=== PATIENT | female | born 1980 | race Caucasian/White ===

== ENCOUNTER → 2018-03-19 12:58 | Outpatient (CLI) | payer BC, SELFPAY ==
[2018-03-19 14:34] LABS: Alanine Aminotransferase 23 U/L (12-78); Albumin/Globulin Ratio 1.3 (1.1-1.8); Alkaline Phosphatase 67 U/L (46-116); Aspartate Amino Transferase 21 U/L (15-37); Bilirubin,Total 0.5 mg/dL (0.2-1.0); Blood Urea Nitrogen 7 mg/dL (7-18); Calcium 10.1 mg/dL (8.5-10.1); Chloride 102 mmol/L (98-107); Chol/HDL Ratio 4.9 (1-3.5); Cholesterol 178 mg/dL (140-200); Creatinine,Serum 0.84 mg/dL (0.55-1.02); Estimated Glomerular Filt Rate 77 ml/min (>60); GFR (African American) 93 ML/MIN (>60); Globulin 3.1 gm/dl (1.3-3.2); Glucose 86 mg/dL (74-106); HDL Cholesterol 36 mg/dL (29-89); LDL Cholesterol 114 mg/dL (0-130); Potassium 4.4 mmoL/L (3.5-5.1); Sodium 139 mmol/L (136-145); Total Protein,Serum 7.1 gm/dL (6.4-8.2); Triglycerides 142 mg/dL (30-200); VLDL Cholesterol 28 mg/dL (0-40)
[2018-03-19 14:35] LABS: Anion Gap 14.4 mEq/L (5-15); Carbon Dioxide 27 mmol/L (21.0-32.0)
== END ==
PROVIDERS: Visit Provider Internal Medicine
DX: M05.9 Rheumatoid arthritis with rheumatoid factor, unspecified (principal)
CPT/HCPCS: 36415; 80053; 80061

== ENCOUNTER → 2018-04-01 12:07 | Outpatient (CLI) | payer BC, SELFPAY ==
[2018-04-01 12:55] LABS: Basophils % 0.3 % (0.1-2.0); Eosinophils # 0.2 K/mm3 (0.0-0.4); Eosinophils % 2.9 % (0.1-12.0); Hemoglobin 12.6 g/dL (12.2-16.2); Lymphocytes # 1.6 K/mm3 (0.7-4.5); Lymphocytes % 22.7 K/mm3 (10-50); Mean Corpuscular HGB Conc 31.5 g/dL (31.8-35.4); Mean Corpuscular Hemoglobin 28.9 pg (27.0-31.2); Mean Corpuscular Volume 91.8 fl (81-99); Mean Platelet Volume 10.5 fl (7.4-10.4); Monocytes # 0.2 K/mm3 (0.1-1.0); Monocytes % 3.5 % (1.7-9.3); Neutrophils % 70.6 % (37.0-80.0); Platelet Count 245 K/mm3 (142-424); Red Blood Count 4.36 M/mm3 (4.20-5.40); Red Cell Distribution Width 13.2 % (11.5-17.5)
== END ==
PROVIDERS: Visit Provider Internal Medicine
DX: M05.9 Rheumatoid arthritis with rheumatoid factor, unspecified (principal); M79.7 Fibromyalgia; Z79.899 Other long term (current) drug therapy
CPT/HCPCS: 36415; 85025

== ENCOUNTER → 2018-05-06 11:01 | Outpatient (CLI) | payer BC, SELFPAY ==
[2018-05-06 11:29] LABS: Basophils % 0.6 % (0.1-2.0); Eosinophils # 0.2 K/mm3 (0.0-0.4); Hematocrit 39.6 % (37.0-47.0); Hemoglobin 12.3 g/dL (12.2-16.2); Lymphocytes # 2.2 K/mm3 (0.7-4.5); Lymphocytes % 39.4 K/mm3 (10-50); Mean Corpuscular HGB Conc 31.1 g/dL (31.8-35.4); Mean Corpuscular Hemoglobin 28.6 pg (27.0-31.2); Mean Corpuscular Volume 91.9 fl (81-99); Mean Platelet Volume 8.9 fl (7.4-10.4); Monocytes # 0.2 K/mm3 (0.1-1.0); Monocytes % 3.2 % (1.7-9.3); Neutrophils % 52.7 % (37.0-80.0); Platelet Count 233 K/mm3 (142-424); Red Blood Count 4.31 M/mm3 (4.20-5.40); Red Cell Distribution Width 13.6 % (11.5-17.5); White Blood Count 5.6 K/mm3 (4.8-10.8)
[2018-05-06 12:50] LABS: Alanine Aminotransferase 37 U/L (12-78); Albumin Level 3.9 gm/dL (3.4-5.0); Albumin/Globulin Ratio 1.5 (1.1-1.8); Alkaline Phosphatase 57 U/L (46-116); Anion Gap 13.1 mEq/L (5-15); Aspartate Amino Transferase 40 U/L (15-37); Bilirubin,Total 0.5 mg/dL (0.2-1.0); Blood Urea Nitrogen 7 mg/dL (7-18); Calcium 9.1 mg/dL (8.5-10.1); Carbon Dioxide 28 mmol/L (21.0-32.0); Chloride 105 mmol/L (98-107); Chol/HDL Ratio 3.8 (1-3.5); Cholesterol 191 mg/dL (140-200); Creatinine,Serum 0.67 mg/dL (0.55-1.02); Estimated Glomerular Filt Rate 100 ml/min (>60); GFR (African American) 121 ML/MIN (>60); Globulin 2.6 gm/dl (1.3-3.2); Glucose 94 mg/dL (74-106); HDL Cholesterol 50 mg/dL (29-89); LDL Cholesterol 109 mg/dL (0-130); Potassium 4.1 mmoL/L (3.5-5.1); Sodium 142 mmol/L (136-145); Total Protein,Serum 6.5 gm/dL (6.4-8.2); Triglycerides 161 mg/dL (30-200); VLDL Cholesterol 32 mg/dL (0-40)
== END ==
PROVIDERS: Visit Provider Internal Medicine
DX: M05.9 Rheumatoid arthritis with rheumatoid factor, unspecified (principal); R53.83 Other fatigue; Z79.899 Other long term (current) drug therapy
CPT/HCPCS: 36415; 80053; 80061; 85025

== ENCOUNTER → 2018-06-12 11:40 | Outpatient (CLI) | payer BC, SELFPAY ==
[2018-06-12 12:01] LABS: Basophils % 0.5 % (0.1-2.0); Eosinophils # 0.3 K/mm3 (0.0-0.4); Hematocrit 36.2 % (37.0-47.0); Hemoglobin 11.8 g/dL (12.2-16.2); Lymphocytes # 2.4 K/mm3 (0.7-4.5); Lymphocytes % 28.1 K/mm3 (10-50); Mean Corpuscular HGB Conc 32.7 g/dL (31.8-35.4); Mean Corpuscular Hemoglobin 30.1 pg (27.0-31.2); Mean Corpuscular Volume 92.1 fl (81-99); Mean Platelet Volume 8.6 fl (7.4-10.4); Monocytes # 0.4 K/mm3 (0.1-1.0); Monocytes % 4.2 % (1.7-9.3); Neutrophils # 5.5 K/mm3 (1.8-7.8); Neutrophils % 64.2 % (37.0-80.0); Platelet Count 272 K/mm3 (142-424); Red Blood Count 3.92 M/mm3 (4.20-5.40); Red Cell Distribution Width 14.3 % (11.5-17.5); White Blood Count 8.6 K/mm3 (4.8-10.8)
[2018-06-12 12:55] LABS: Alanine Aminotransferase 23 U/L (12-78); Albumin Level 3.8 gm/dL (3.4-5.0); Albumin/Globulin Ratio 1.4 (1.1-1.8); Alkaline Phosphatase 58 U/L (46-116); Anion Gap 10.9 mEq/L (5-15); Aspartate Amino Transferase 14 U/L (15-37); Bilirubin,Total 0.3 mg/dL (0.2-1.0); Blood Urea Nitrogen 9 mg/dL (7-18); Calcium 8.8 mg/dL (8.5-10.1); Carbon Dioxide 27 mmol/L (21.0-32.0); Chloride 104 mmol/L (98-107); Cholesterol 215 mg/dL (140-200); Creatinine,Serum 0.75 mg/dL (0.55-1.02); Estimated Glomerular Filt Rate 88 ml/min (>60); GFR (African American) 106 ML/MIN (>60); Globulin 2.8 gm/dl (1.3-3.2); Glucose 87 mg/dL (74-106); HDL Cholesterol 36 mg/dL (29-89); LDL Cholesterol 141 mg/dL (0-130); Potassium 3.9 mmoL/L (3.5-5.1); Sodium 138 mmol/L (136-145); Total Protein,Serum 6.6 gm/dL (6.4-8.2); Triglycerides 189 mg/dL (30-200); VLDL Cholesterol 38 mg/dL (0-40)
== END ==
PROVIDERS: Visit Provider Internal Medicine
DX: M05.9 Rheumatoid arthritis with rheumatoid factor, unspecified (principal); R53.83 Other fatigue; Z79.899 Other long term (current) drug therapy
CPT/HCPCS: 36415; 80053; 80061; 85025

== ENCOUNTER → 2018-08-14 14:35 | Outpatient (CLI) | payer BC, SELFPAY ==
[2018-08-14 15:10] LABS: Basophils % 0.3 % (0.1-2.0); Eosinophils # 0.3 K/mm3 (0.0-0.4); Eosinophils % 3.3 % (0.1-12.0); Hematocrit 36.9 % (37.0-47.0); Hemoglobin 11.9 g/dL (12.2-16.2); Lymphocytes % 22.7 K/mm3 (10-50); Mean Corpuscular HGB Conc 32.2 g/dL (31.8-35.4); Mean Corpuscular Hemoglobin 30.7 pg (27.0-31.2); Mean Corpuscular Volume 95.2 fl (81-99); Mean Platelet Volume 8.1 fl (7.4-10.4); Monocytes # 0.5 K/mm3 (0.1-1.0); Neutrophils # 6.2 K/mm3 (1.8-7.8); Neutrophils % 68.7 % (37.0-80.0); Platelet Count 332 K/mm3 (142-424); Red Blood Count 3.88 M/mm3 (4.20-5.40); Red Cell Distribution Width 13.2 % (11.5-17.5)
[2018-08-14 16:56] LABS: Alanine Aminotransferase 24 U/L (12-78); Albumin Level 3.6 gm/dL (3.4-5.0); Albumin/Globulin Ratio 1.1 (1.1-1.8); Alkaline Phosphatase 68 U/L (46-116); Anion Gap 8.3 mEq/L (5-15); Aspartate Amino Transferase 16 U/L (15-37); Bilirubin,Total 0.2 mg/dL (0.2-1.0); Blood Urea Nitrogen 7 mg/dL (7-18); Calcium 9.1 mg/dL (8.5-10.1); Carbon Dioxide 30 mmol/L (21.0-32.0); Chloride 104 mmol/L (98-107); Creatinine,Serum 0.65 mg/dL (0.55-1.02); Estimated Glomerular Filt Rate 104 ml/min (>60); GFR (African American) 126 ML/MIN (>60); Globulin 3.2 gm/dl (1.3-3.2); Glucose 82 mg/dL (74-106); Potassium 4.3 mmoL/L (3.5-5.1); Sodium 138 mmol/L (136-145); Total Protein,Serum 6.8 gm/dL (6.4-8.2)
== END ==
PROVIDERS: PCP Family Medicine; Visit Provider Otolaryngology
DX: H70.11 Chronic mastoiditis, right ear (principal)
CPT/HCPCS: 36415; 80053; 85025

== ENCOUNTER → 2018-11-28 10:50 | Outpatient (CLI) | payer BC, SELFPAY ==
--- NOTE | 2018-11-28 10:56 | CT_ITS ---
CT abdomen pelvis w con CLINICAL INDICATION: Nausea, vomiting, right-sided abdominal pain ITS.REASON: N/V , VERTIGO, ABD PAIN ORDERING PHYSICIAN: Marlen Vital PATIENT AGE: 37 years COMPARISON: None TECHNIQUE: Axial images obtained with sagittal and coronal reformats. All CT scans at the facility use one or more dose reduction, viz: automated exposure control, ma/kV adjustment per patient size (including targeted exams where dose is matched to indication, i.e. head), or iterative reconstruction technique. PROCEDURE: Oral Contrast: None IV Contrast: 75 mL of Isovue-370. FINDINGS: There are mild atelectatic changes in the lung bases. There is minimal thickening of the pericardium. Probable focal fatty infiltration noted along the falciform ligament region of the left hepatic lobe. The liver is otherwise unremarkable. The spleen, adrenal glands, and pancreas have an unremarkable appearance. Prior cholecystectomy. No renal mass or renal calculi. No ureteral calculi. No hydronephrosis. No intestinal structure in or free air. There has been a prior appendectomy and hysterectomy. No pelvic mass abnormal fluid collection or focal inflammatory change apparent. There is a right-sided presacral stimulator device present with the power pack in the right buttock region. No acute bony anomalies. IMPRESSION: No acute abdominal or pelvic findings.
== END ==
PROVIDERS: PCP Family Medicine; Visit Provider Nurse Practitioner Family
DX: R10.9 Unspecified abdominal pain (principal); R42 Dizziness and giddiness; R11.2 Nausea with vomiting, unspecified
CPT/HCPCS: 74177; Q9967

== ENCOUNTER → 2019-01-26 16:34 | Outpatient (CLI) | payer BC, SELFPAY ==
[2019-01-26 16:52] LABS: Basophils % 0.3 % (0.1-2.0); Eosinophils # 0.2 K/mm3 (0.0-0.4); Eosinophils % 2.5 % (0.1-12.0); Hematocrit 36.6 % (37.0-47.0); Lymphocytes # 2.7 K/mm3 (0.7-4.5); Lymphocytes % 31.3 % (10-50); Mean Corpuscular HGB Conc 32.9 g/dL (31.8-35.4); Mean Corpuscular Hemoglobin 30.2 pg (27.0-31.2); Mean Corpuscular Volume 91.9 fl (81-99); Mean Platelet Volume 8.6 fl (7.4-10.4); Monocytes # 0.4 K/mm3 (0.1-1.0); Monocytes % 4.2 % (1.7-9.3); Neutrophils # 5.3 K/mm3 (1.8-7.8); Neutrophils % 61.7 % (37.0-80.0); Platelet Count 312 K/mm3 (142-424); Red Blood Count 3.99 M/mm3 (4.20-5.40); Red Cell Distribution Width 13.7 % (11.5-17.5); White Blood Count 8.7 K/mm3 (4.8-10.8)
[2019-01-26 18:06] LABS: Anion Gap 13.7 mEq/L (5-15); Blood Urea Nitrogen 7 mg/dL (7-18); Calcium 9.3 mg/dL (8.5-10.1); Carbon Dioxide 30 mmol/L (21.0-32.0); Chloride 105 mmol/L (98-107); Creatinine,Serum 0.72 mg/dL (0.55-1.02); Estimated Glomerular Filt Rate 92 ml/min (>60); GFR (African American) 111 ML/MIN (>60); Glucose 74 mg/dL (74-106); Potassium 3.7 mmoL/L (3.5-5.1); Sodium 145 mmol/L (136-145)
== END ==
PROVIDERS: Visit Provider Otolaryngology
DX: Z01.818 Encounter for other preprocedural examination (principal); H65.493 Other chronic nonsuppurative otitis media, bilateral; H92.02 Otalgia, left ear; H70.13 Chronic mastoiditis, bilateral
CPT/HCPCS: 36415; 80048; 85025; 93005

== ENCOUNTER → 2019-03-13 08:50 | Outpatient (CLI) | payer BC, SELFPAY ==
--- NOTE | 2019-03-13 08:53 | XR_ITS ---
XR ankle wt bearing RT min 3V HISTORY: Pain and swelling ITS.REASON: 3 views WB ORDERING PHYSICIAN: Maria De Jesus Richter MD PATIENT AGE: 38 years Comparison: 05/03/2015 FINDINGS: Prior ORIF of the fibula. A longitudinal screw is present within the distal aspect of the fibula. The screw does not appear to be distracting out. There is a small zone of lucency noted around the proximal aspect of the screw at the threaded area. This did appear to be present on the older exam of 05/03/2015 consistent with post surgical changes. There is some mild spurring along the anterior aspect of the distal tibia. IMPRESSION: Prior ORIF of the fibula with mild degenerative changes of the anterior ankle joint
== END ==
PROVIDERS: PCP Family Medicine; Visit Provider Orthopaedic Surgery
DX: M25.571 Pain in right ankle and joints of right foot (principal)
CPT/HCPCS: 73610

== ENCOUNTER 2019-04-29 11:00 | Outpatient (RCR) | payer BC, SELFPAY ==
--- NOTE | 2019-04-16 11:03 | HMH.PTOPEV ---
PT Outpatient Evaluation Rehab PT Outpatient Evaluation Start: 04/16/19 10:22 Freq: Status: Active Protocol: Document 04/16/19 10:23 LEVI (Rec: 04/16/19 11:02 LEVI [id number]) Electronically Signed By Wilian Foss, PT 04/16/19 10:23 Outpatient Therapy Subjective History Subjective History Pt reports h/o chronic R ankle pain beginning ~8 months ago. pt reports fx to R distal fib , w/ORIF sx. in 2014, intermittent episodes of R ankle pain since, however, s/s became constant ~8 months ago . Pt reports PMH of RA, 'which might be causing it to get worse'. Chief Complaint Pain,Swelling Symptom Type Ache,Sharp,Dull Symptoms Relieved By Rest/Positioning,Ice Symptoms Aggravated By Standing,Walking Prior Functional Limitations Standing,Walking Current Functional Limitations Standing,Walking Symptom Description Constant and Continuous Level of pain today (0-10) 4 Pain scale - at its best (0-10) 3 Pain scale - at its worst (0-10) 9 Ankle/Foot Eval Gait Observation General Gait Pattern Observation Antalgic Gait Assistive Device Ambulation Assistive Device None Palpation Tenderness right Ankle/Foot Palpation Findings Tenderness Ankle/Foot Palpation Overall Comment 3/4 peroneals ATF TTP positive ROM Ankle/Foot Dorsiflexion w/Knee Extended 0-10 Active Range Motion (degrees) Ankle/Foot Plantar Flexion Active Range 0-50 of Motion (degrees) Ankle/Foot Eversion Active Range of 0-15 Motion (degrees) Ankle/Foot Inversion Active Range of 0-50 Motion (degrees) Ankle/Foot ROM Limitations Pain left Ankle/Foot Dorsiflexion w/Knee Extended 0-15 Active Range Motion (degrees) Ankle/Foot Plantar Flexion Active Range 0-65 of Motion (degrees) Ankle/Foot Eversion Active Range of 0-15 Motion (degrees) Ankle/Foot Inversion Active Range of 0-60 Motion (degrees) MMT right Ankle Dorsiflexion Strength Grade 4 Good Ankle Plantarflexion Strength Grade 4 Good Foot Eversion Strength Grade 4- Good- Foot Inversion Strength Grade 3+ Fair+ left Ankle Dorsiflexion Strength Grade 5 Normal Ankle Plantarflexion Strength Grade 5 Normal Foot Eversion Strength Grade 5 Normal Foot Inversion Strength Grade 4 Good Special Tests Talar Tilt Test Negative Left,Positive Right Outpatient Therapy Assessment Impairments Problems/Impairmments Palpation Tenderness,Impaired
== END 2019-04-29 11:05 | disposition home or self-care (01) ==
LOC: PT 11:00
PROVIDERS: Visit Provider Orthopaedic Surgery
DX: M76.71 Peroneal tendinitis, right leg (principal)
CPT/HCPCS: 97010; 97014; 97033; 97035; 97110; 97163; G0283

== ENCOUNTER 2019-06-18 10:00 | Outpatient (RCR) | payer BC, SELFPAY ==
--- NOTE | 2019-06-16 11:44 | HMH.PTOPEV ---
PT Outpatient Evaluation Rehab PT Outpatient Evaluation Start: 06/16/19 11:23 Freq: Status: Active Protocol: Document 06/16/19 11:23 [id number] (Rec: 06/16/19 11:44 BRANDON [id number]) Electronically Signed By Ap Rodriguez, PT 06/16/19 11:23 Outpatient Therapy Subjective History Subjective History Patient is a 38 year old female presenting to outpatient PT with reports of R ankle pain S/P distal fibular hardware excision performed 05/20/19. Initial injury occured approximately 4 years ago after inversion ankle sprain requiring ORIF. Pt reports that she has been having significant R ankle pain for approximately 1 year prior to surgery. Comorbidities include RA, hx of R knee lateral release and hysterectomy. Chief Complaint Pain,Stiff,Swelling, Paresthesia,Weakness Symptom Type Ache,Sharp,Shooting Symptoms Relieved By Rest/Positioning,Ice,OTC Meds, Prescription Meds Symptoms Aggravated By Standing,Physical Activity, Walking Prior Functional Limitations None Current Functional Limitations Lifting,Housework,Standing, Squatting,Recreation Activity, Walking,Stairs,Balance Symptom Description Constant but Variable Level of pain today (0-10) 6 Pain scale - at its best (0-10) 2 Pain scale - at its worst (0-10) 6 Ankle/Foot Eval Gait Observation General Gait Pattern Observation Antalgic Gait,Decrease Weight Bear (R) Assistive Device Ambulation Assistive Device None Palpation Tenderness right Ankle/Foot Palpation Findings Tenderness Ankle/Foot Palpation Overall Comment surgical incision ROM Ankle/Foot Dorsiflexion w/Knee Extended 1 Active Range Motion (degrees) Ankle/Foot Dorsiflexion w/Knee Extended 4 Passive Range (degrees) Ankle/Foot Plantar Flexion Active Range WNL of Motion (degrees) Ankle/Foot Eversion Active Range of 8 Motion (degrees) Ankle/Foot Eversion Passive Range of 12 Motion (degrees) Ankle/Foot Inversion Active Range of WNL Motion (degrees) Ankle/Foot ROM Limitations Soft Tissue Tightness,Bony Restriction Great Toe ROM Reason Not Measured Within Functional Limits Accessory
== END 2019-06-18 10:05 | disposition home or self-care (01) ==
LOC: PT 10:00
PROVIDERS: PCP Family Medicine; Visit Provider Orthopaedic Surgery
DX: T84.84XA Pain due to internal orthopedic prosthetic devices, implants and grafts, initial encounter (principal); M76.71 Peroneal tendinitis, right leg
CPT/HCPCS: 97163

== ENCOUNTER → 2019-06-30 11:26 | Outpatient (CLI) | payer BC, SELFPAY ==
--- NOTE | 2019-06-30 11:33 | XR_ITS ---
PROCEDURE: XR CHEST 2V CLINICAL HISTORY: COUGH COMPARISON: CXR2V XR chest 2V from 08/02/2018 from 03/13/2019 Chest from 06/06/2019 FINDINGS: The cardiomediastinal silhouette and pulmonary vascularity are within normal limits. There remains patchy density in the right lower lobe suggestive of infiltrate in the right middle lobe. No acute bony abnormalities. IMPRESSION: Patchy infiltrate in the right middle lobe Dictated by: Allen Rosa MD 06/30/2019 12:05 Signed by: <Electronically signed by Allen Rosa MD in [place]> 06/30/2019 12:05
== END ==
PROVIDERS: PCP Family Medicine; Visit Provider Family Medicine
DX: R05 Cough (principal)
CPT/HCPCS: 71046

== ENCOUNTER → 2019-07-16 10:00 | Outpatient (CLI) | payer BC, SELFPAY ==
--- NOTE | 2019-07-16 10:03 | XR_ITS ---
PROCEDURE: XR CHEST 2V CLINICAL HISTORY: PNEUMONIA Bronchitis, pneumonia, smoker COMPARISON: CXR2V XR chest 2V from 08/02/2018 Chest from 06/06/2019 XR CHEST 2V from 06/30/2019 FINDINGS: The cardiomediastinal silhouette and pulmonary vascularity are within normal limits. Patchy infiltrate once again noted in the right middle lobe. The remaining lungs are clear. No acute bony abnormalities. IMPRESSION: No change right middle lobe infiltrate. Dictated by: Allen Rosa MD 07/16/2019 17:53 Electronically signed by Allen Rosa MD in [place] 07/16/2019 17:53
== END ==
PROVIDERS: PCP Nurse Practitioner Family; Visit Provider Nurse Practitioner Family
DX: J18.1 Lobar pneumonia, unspecified organism (principal)
CPT/HCPCS: 71046

== ENCOUNTER → 2019-07-30 14:00 | Outpatient (CLI) | payer BC, SELFPAY ==
--- NOTE | 2019-07-30 14:04 | CT_ITS ---
PROCEDURE: CT CHEST WO CON CLINICAL INDICATION: SOB, INFILTRAE SEEN ON CXR COMPARISON: XR CHEST 2V from 07/16/2019 TECHNIQUE: Axial images obtained with sagittal and coronal reformats. All CT scans at the facility use one or more dose reduction, viz: automated exposure control, ma/kV adjustment per patient size (including targeted exams where dose is matched to indication, i.e. head), or iterative reconstruction technique. FINDINGS: HEART: Unremarkable. Normal heart size. No significant pericardial effusion. MEDIASTINAL AND HILAR STRUCTURES: No mediastinal or hilar mass evident. No dominant adenopathy. PULMONARY ARTERIES: No pulmonary embolus evident. AORTA: No acute finding. No thoracic aortic aneurysm or dissection evident LUNGS:The upper lung soriano are clear. There is subtle faint areas of ground-glass opacities primarily in the right middle lobe and minimally within the lingula likely representing sequela from recent pneumonic infiltrates. PLEURAL SPACES: No significant effusion. No evidence of pneumothorax. BONY STRUCTURES: No acute bony abnormalities apparent. LYMPH NODES: No enlarged lymph nodes evident. UPPER ABDOMEN: Unremarkable. ADDITIONAL FINDINGS: No other significant abnormalities. IMPRESSION: Minimal areas of ground-glass opacity as discussed above likely reflecting minimal residual pneumonia and/or mild postinflammatory scarring, no other significant abnormality noted Dictated by: Dr. Arjun Zuniga MD 07/31/2019 09:[address] Arjun Zuniga MD in [place] 07/31/2019 09:32
== END ==
PROVIDERS: PCP Nurse Practitioner Family; Visit Provider Nurse Practitioner
DX: R06.02 Shortness of breath (principal); R91.8 Other nonspecific abnormal finding of lung field
CPT/HCPCS: 71250

== ENCOUNTER → 2019-08-14 11:26 | Outpatient (CLI) | payer BC, SELFPAY ==
[2019-08-14 11:40] VITALS: PULSE 75
== END ==
PROVIDERS: PCP Family Medicine; Visit Provider Nurse Practitioner Family
DX: R06.02 Shortness of breath (principal)
CPT/HCPCS: 94060; 94640

== ENCOUNTER → 2019-08-17 14:58 | Outpatient (CLI) | payer BC, SELFPAY ==
--- NOTE | 2019-08-17 15:01 | XR_ITS ---
PROCEDURE: XR CHEST 2V CLINICAL HISTORY: PNEUMONIA RT MID LOBE COMPARISON: Chest from 06/06/2019 XR CHEST 2V from 06/30/2019 XR CHEST 2V from 07/16/2019 CT CHEST WO CON from 07/30/2019 FINDINGS: The cardiomediastinal silhouette and pulmonary vascularity are within normal limits. There remains some patchy density in the right middle lobe consistent with some residual pneumonia. There may be some patchy infiltrate in the left perihilar region. The remaining lungs are clear. No effusions. No acute bony abnormalities. IMPRESSION: Persistent right middle lobe and left perihilar infiltrate Dictated by: Allen Rosa MD 08/17/2019 16:57 Electronically signed by Allen Rosa MD in [facility] 08/17/2019 16:57
== END ==
PROVIDERS: PCP Nurse Practitioner Family; Visit Provider Nurse Practitioner Family
DX: J18.1 Lobar pneumonia, unspecified organism (principal)
CPT/HCPCS: 71046

== ENCOUNTER → 2020-04-01 14:09 | Outpatient (CLI) | payer BC, SELFPAY ==
--- NOTE | 2020-04-01 14:16 | US_ITS ---
PROCEDURE: US THYROID CLINICAL INDICATION: THYROIDMEGALY Follow-up thyroid nodule COMPARISON: THY US THYROID from 08/04/2015 FINDINGS: Right lobe: 4 x 1.4 x 1 cm with heterogeneous echogenicity. Questionable 5 mm mixed nodule mid pole on the right Left lobe: 3.5 x 1.2 x 1.2 cm. 14 x 6 mm area of heterogeneous echogenicity in the lower pole versus a nodule not significantly changed. There is an isoechoic follow are mm nodule in the lower pole unchanged. Isthmus: Unremarkable Additional findings: IMPRESSION: Heterogeneous echogenicity with questionable bilateral nodules. Six-month follow-up suggested Dictated by: Allen Rosa MD 04/02/2020 10:55 Electronically signed by Allen Rosa MD in [place] 04/02/2020 10:55
== END ==
PROVIDERS: PCP Nurse Practitioner Family; Visit Provider Nurse Practitioner Family
DX: E01.0 Iodine-deficiency related diffuse (endemic) goiter (principal)
CPT/HCPCS: 76536

== ENCOUNTER → 2020-04-19 14:40 | Outpatient (CLI) | payer BC, SELFPAY ==
--- NOTE | 2020-04-19 14:41 | CT_ITS ---
PROCEDURE: CT CERVICAL SPINE WO CON CLINICAL INDICATION: fatty area posterior neck Palpable abnormality posterior neck with neck pain COMPARISON: No exams were available for comparison TECHNIQUE: Axial images obtained with sagittal and coronal reformats. All CT scans at the facility use one or more dose reduction, viz: automated exposure control, ma/kV adjustment per patient size (including targeted exams where dose is matched to indication, i.e. head), or iterative reconstruction technique. Axial spiral CT scanning performed of the cervical spine beginning at the base of the skull and continuing to the upper T-spine. 3-D multiplanar reconstruction with 3-D manipulation of volumetric data set in image rendering was completed by the radiologist and/or technologist with the supervision of the radiologist on independent workstation. FINDINGS: A BB is placed at the area of palpable concern. There is normal alignment. No fracture or dislocation is evident. There is mild degenerative disc disease at C3-C4 and C4-C5 and C6-C7 with small posterior osteophytes at C6-C7.. No fracture or dislocation. No lytic or blastic change. There are few scattered small nodes in the neck. There is some nonspecific patchy ground-glass density in the upper lobes A BB is placed along the posterior neck. Deep to the BB is adipose tissue. There is only minimal stranding of the deep adipose fat. No abnormal fluid collection or soft tissue mass. IMPRESSION: 1. Degenerative changes cervical spine. 2. No suspicious soft tissue mass. There is some minimal stranding of the fat deep to the placed BB which could be due to some mild inflammatory changes. At the area of the placed BB there is mild prominence of adipose tissue. No abscess Dictated by: Allen Rosa MD 04/20/2020 11:27 Electronically signed by Allen Rosa MD in [place] 04/20/2020 11:27
== END ==
PROVIDERS: PCP Nurse Practitioner Family; Visit Provider Otolaryngology
DX: D17.0 Benign lipomatous neoplasm of skin and subcutaneous tissue of head, face and neck (principal)
CPT/HCPCS: 72125

== ENCOUNTER → 2020-05-26 10:10 | Outpatient (CLI) | payer BC, SELFPAY ==
[2020-05-26 11:30] LABS: Coronavirus 19 IgG Antibody Negative (Negative); Coronavirus 19 IgM Antibody Negative (Negative)
== END ==
PROVIDERS: Visit Provider Internal Medicine Gastroenterology
DX: Z01.818 Encounter for other preprocedural examination (principal)
CPT/HCPCS: 36415; 86328

== ENCOUNTER 2020-05-27 07:54 | Day surgery (SDC) | payer BC, SELFPAY ==
[2020-05-20 14:52] VITALS: BMI 30.4
[2020-05-27] VITALS (9 sets, daily range): BP systolic 87–128; BP diastolic 56–81; PULSE 60–75; RESP 16–17; TEMP 36.2–36.7; O2SAT 96–100
--- NOTE | 2020-05-27 09:21 | HMH.ANESCL ---
[facility] Anesthesia Checklist - Patient Identification Patient Identification: Arm Band - Structural Data Admitted From: Home Planned Operative Procedure/s: egd/colonoscopy Consent for Planned Operative Procedure(s) Verified: Yes Verified Documents: Surgical Consent, History and Physical - NPO Status Verified Time NPO: 00:00 - Additional verifications Anesthesia Reactions: No Hx Blood Transfusions: No Blood Transfusion Reaction: No - Airway Assessment C-Spine Mobility Assessed: Yes (mp2) TMJ Mobility Assessed: Yes Dentition: Good Dentition - Neurological Assessment Level of Consciousness: Awake, Alert - Anesthesia Plan Anesthesia Risk discussed: Yes Anesthesia Plan: Verified ASA Class: II Anesthesia Type: MAC [facility] History I have reviewed the patient's past medical history: Yes Medical History: Reports:: Anxiety, Depression Denies:: Cancer, Diabetes Mellitus Type 1, Diabetes Mellitus Type 2, Internal Pacemaker, MRSA, Seizures *Have you ever received a pneumonia vaccine?: No *Have you received a flu vaccine this season?: Yes Other Medical History: Reports: Arthritis, Sinus Problems, Other. Denies: Blood Transfusion Reaction Anesthesia experience/problems:: nac Laterality Cases: Right: Arthroscopy Knee, Bilateral: Myringotomy (Ear Tubes), Tonsillectomy, Other Other Surgeries: Yes: Cholecystectomy, Hysterectomy-Total, Hysterectomy-Partial, Other. No: Pacemaker Amputation: No Fractures: No - *Social History Last grade of school completed: 11th or 12th Smoking Status: Never smoker Tobacco Type: cigarettes # Packs/Day (cigarettes): 1 Alcohol Intake: never Substance Use Type: denies use *Occupational Status:: unemployed Housing: house Household Members: spouse *Travel in the last 8 weeks: None - Psychiatric History Pschychiatric History:: Reports:: Anxiety, Depression Family Hx:: Hyperlipidemia, Hypertension
--- NOTE | 2020-05-27 09:30 | HMH.PROC ---
[facility] Procedure Note Procedure Note:: Upper Endoscopy Procedure Report: Esophagogastroduodenoscopy with cold biopsies Endoscopost: Beltran Olmos II, MD Referring Physician: Kacey HUYNH Date of Procedure: May 27, 2020 Equipment: Olympus GIF 180 standard upper endoscope Sedation: MAC sedation Indications: Mrs. Gutierrez is a 39-year-old female with dyspepsia. She reports lower abdominal pain (right lower quadrant) that radiates into the epigastrium and retrosternal region. She has had longstanding symptoms. She reports some nausea and early satiety. She reports no bloating, gassiness, belching or dysphagia. She has had no weight loss. She reports no hematochezia or melena. She does state that her symptoms are worsened postprandially. She did have cholecystectomy 3 years ago. She had panendoscopy several years ago as well. She reports no significant stress or anxiety. She has had no recent imaging study. She does report frequent diarrhea and may have a normal bowel movement once weekly. Procedure: Prior to the procedure, a history and physical exam was performed, and patient's medications and allergies were reviewed. The risks, benefits and alternatives of the sedation and procedure were discussed with the patient. All questions were answered and informed consent was obtained. The patient was brought to the procedure room. Patient identification and proposed procedure were verified by the physician and the nurse. The patient was placed in a left lateral decubitus position and the scope was passed under direct vision. Throughout the procedure, the patient's blood pressure, pulse, and oxygen saturations were monitored continuously. The upper GI endoscopy was accomplished without difficulty. The patient tolerated the procedure well. Findings: The scope was passed directly into the upper esophagus and advanced to the third portion of the duodenum. The post bulbar duodenum and duodenal bulb were normal with normal mucosa and conniventes. Cold biopsies were taken from the post bulbar duodenum to rule out celiac disease. The scope was withdrawn through a normal duodenal bulb and pylorus into the stomach. There was evidence of linear reactive gastropathy of the antrum and body of the stomach. The remainder of the antrum, body and fundus of the stomach were grossly normal. Upon retroflexion there was no hiatal hernia. 2 biopsies were taken in the antrum and along the lesser curvature for histology to rule out gastritis and/or H pylori. The scope was then withdrawn into the esophagus. There was evidence of nonerosive GERD and mild esophageal dysmotility. Cold biopsies were taken at the GE junction to rule out intestinal metaplasia. The remainder of the esophageal mucosa was normal. Impression: 1. Nonerosive GERD with mild esophageal dysmotility 2. Linear reactive gastropathy Plan: I will follow-up the biopsies. I do feel that the patient has functional dyspepsia and functional bowel disease. We will discuss dietary measures and treatment options. I will discuss the findings with the patient and family. I will proceed with diagnostic colonoscopy.
--- NOTE | 2020-05-27 09:47 | HMH.PROC ---
[facility] Procedure Note Procedure Note:: Colonoscopy Procedure Report: Colonoscopy with cold biopsies Endoscopist: Beltran Olmos II, MD Referring physician: Kacey HUYNH Date of Procedure: May 27, 2020 Equipment: Olympus 180 variable stiffness pediatric colonoscope Sedation: MAC sedation Indication: Mrs. Gutierrez is a 39-year-old female with lower abdominal pain especially in the right lower quadrant. She also has chronic diarrhea. She reports no bloating, gassiness or weight loss. She reports no rectal bleeding or hematochezia. She did have cholecystectomy 3 years ago. She does report postprandial abdominal pain. She reports no family history of colitis, Crohn's disease or colon cancer. Her last colonoscopy was several years ago. Procedure: Prior to the procedure, a history and physical exam was performed, and patient's medications and allergies were reviewed. The risks, benefits and alternatives of the sedation and procedure were discussed with the patient. All questions were answered and informed consent was obtained. The patient was brought to the procedure room. Patient identification and proposed procedure were verified by the physician and the nurse. The patient was placed in a left lateral decubitus position and the scope was passed under direct vision. Throughout the procedure, the patient's blood pressure, pulse, and oxygen saturations were monitored continuously. The colonoscopy was accomplished without difficulty. The patient tolerated the procedure well. Findings: On digital rectal examination there was normal rectal tone. There were no external hemorrhoids. The colonoscope was introduced through the anal canal to the rectum and advanced to the cecum. The ileocecal valve and appendiceal orifice were identified. The scope was advanced a short distance into the ileum which appeared grossly normal. The scope was then withdrawn into the colon. The cecum, ascending, transverse, descending, sigmoid and rectum were grossly normal. Random biopsies were taken from the colon to rule out microscopic colitis. There were no mucosal abnormalities identified. Upon retroflexion within the rectum there were grade 1 internal hemorrhoids.The preparation was excellent throughout with Killbuck Preparation Score of 9. The cecal time was 10 minutes. Impression: 1. Normal colonoscopy with intubation of the terminal ileum Plan: I do feel that the patient has functional diarrhea and IBS?diarrhea. She also has pain from visceral sensitivity. We will discuss dietary measures and treatment options. I will follow-up the biopsies.
== END 2020-05-27 11:01 | disposition home or self-care (01) ==
LOC: OUTP 07:56
PROVIDERS: PCP Nurse Practitioner; Visit Provider Internal Medicine Gastroenterology
PROC: 0DJ08ZZ Inspection of Upper Intestinal Tract, Via Natural or Artificial Opening Endoscopic (ICD-10-PCS; CPT 43235; principal; 2020-05-27 09:00)
DX: K21.9 Gastro-esophageal reflux disease without esophagitis (principal); K31.9 Disease of stomach and duodenum, unspecified; K22.4 Dyskinesia of esophagus; R10.31 Right lower quadrant pain; R19.7 Diarrhea, unspecified; K64.0 First degree hemorrhoids; F41.9 Anxiety disorder, unspecified; F32.9 Major depressive disorder, single episode, unspecified; M19.90 Unspecified osteoarthritis, unspecified site; Z96.22 Myringotomy tube(s) status; Z90.89 Acquired absence of other organs; Z90.49 Acquired absence of other specified parts of digestive tract
CPT/HCPCS: 45380; 43239

== ENCOUNTER → 2020-06-03 14:42 | Outpatient (CLI) | payer BC, SELFPAY ==
[2020-06-05 09:55] LABS: Covid-19 Nasal PCR Sendout UK Not Detected
== END ==
PROVIDERS: Visit Provider Nurse Practitioner Family
DX: Z03.818 Encounter for observation for suspected exposure to other biological agents ruled out (principal); R11.2 Nausea with vomiting, unspecified; R50.82 Postprocedural fever; J12.9 Viral pneumonia, unspecified
CPT/HCPCS: U0003

== ENCOUNTER 2020-06-25 16:59 | Emergency (ER) | payer BC, SELFPAY ==
[2020-06-25 17:07] VITALS: BP 136/92; PULSE 79; RESP 18; O2SAT 98
--- NOTE | 2020-06-25 17:32 | HMH.EDUTC ---
[facility] [place]ression: Oral candidiasis Disposition: Home, Self-Care Condition on Discharge: Good Instructions: Thrush-Adult, Nystatin, Sore Throat Additional Instructions: *Monitor Temp, Over the counter Motrin or Tylenol as directed/as needed Tylenol every 4 hours and Motrin every 6 hours (as long as your family doctor has told you that you can take it) for fever or pain. and straight to ER if unable to lower temp less than 101.0 after medication given *Warm salt water gargles may help to soothe the throat *Throat Lozenges *Warm fluids like tea with honey may help to soothe the throat *Sleep elevated *Humidifier/Vaporizer *Nystatin oral 4ml swish and spit every 6 hours for 10 days Follow up with Family doctor if no improvement or any worsening of symptoms in the next 48-72 hours Make sure that you are drinking plenty of water and staying hydrated Make sure to practice good oral hygiene Your throat swab was sent for culture. Those results are typically sent to your primary care. Be sure to follow up in 2-3 days with your family doctor/primary care physician if no improvement so they can review those result and treat if necessary. If you don?t have a primary care doctor, I recommend you get one but in the mean time, you will have to return to a walk in clinic Follow up IMMEDIATELY for new or worsening symptoms or no Noticeable improvement over the next 48-72 hours. 911 for difficulty breathing or swallowing Prescriptions: Nystatin [Nystatin Susp 500,000 Units/5mL Udc] 4 - 6 ml PO QID 10 Days #240 udc Transmission Status: Pending to [id number] Referrals: Adam Ireland MD [Primary Care Provider] - As needed Time of Disposition: 17:47 Medical Decision Making - Jann Inquiry Pt receiving controlled substance: No Jann was queried for this patient: No Vital Signs: 06/25/20 17:07 Pulse Rate [Radial] 79 Respiratory Rate 18 Blood Pressure [Right Arm] 136/92 H Blood Pressure Mean [Right Arm] 106 Blood Pressure Source [Right Arm] Automatic Cuff Blood Pressure Position [Right Arm] Sitting 02 Sat by Pulse Oximetry 98 Oxygen Delivery Method Room Air - Lab Data Lab results reviewed: Yes: I reviewed the patient's lab results. [facility] [place] - General Stated complaint: throat issue and tongue burning Time Seen by Provider: 06/25/20 17:33 Mode of Arrival: Ambulatory Source of Information: Patient Limitations: No Limitations Description of Symptoms (Recalled from Triage Doc. by RN): sore throat, feels like her tongue is burned. started this morning. HEENT Symptoms (Recalled from RN notes): Yes Resp Symptoms (Recalled from RN notes): No Skin Symptoms (Recalled from RN notes): No MS Symptoms (Recalled from RN notes): No Functional Status (Recalled from RN notes): wnl - History of Present Illness Provider Complaint: Patient states that she woke up thins morning and her tongue felt like it was burning and she had a sore scratchy throat States that as the day went on her tongue continued to burn and throat hurting so she come in to get it checked - Related Data Home Medications Medication Instructions Recorded Confirmed duloxetine 60 mg capsule,delayed 60 mg PO BID 30 Days #60 cap 07/14/18 05/27/20 release gabapentin 300 mg capsule 300 mg PO TID 20 Days #60 cap 01/26/19 05/27/20 prednisone 5 mg tablet 5 mg PO DAILY 04/13/19 05/27/20 celecoxib 200 mg capsule 200 mg PO DAILY cap 04/04/20 05/27/20 gabapentin 600 mg tablet 600 mg PO DAILY tab 04/04/20 05/27/20 sulfasalazine 500 mg 500 mg PO DAILY tab 04/04/20 05/27/20 tablet,delayed release Hydroxychloroquine Sulfate 200 mg PO DAILY 05/20/20 05/27/20 [Plaquenil 200mg tablet] Previous Rx's Medication Instructions Recorded Nystatin [Nystatin Susp 500,000 4 - 6 ml PO QID 10 Days #240 udc 06/25/20 Units/5mL Udc] Allergies Allergy/AdvReac Type Severity Reaction Status Date / Time calcium [From Embrex 600] Allergy
[2020-06-25 17:50] LABS: UTC Strep Screen (Rapid) Negative (Negative)
[2020-06-25 17:58] VITALS: BP 136/92; PULSE 79; RESP 18; TEMP 36.7; O2SAT 98
== END 2020-06-25 17:59 | disposition home or self-care (01) ==
PROVIDERS: Emergency Provider Nurse Practitioner; PCP Family Medicine
DX: B37.0 Candidal stomatitis (principal); F41.8 Other specified anxiety disorders; M79.7 Fibromyalgia; Z88.8 Allergy status to other drugs, medicaments and biological substances; Z90.49 Acquired absence of other specified parts of digestive tract; Z90.710 Acquired absence of both cervix and uterus
CPT/HCPCS: 87880; 99201

== ENCOUNTER → 2020-08-19 15:14 | Outpatient (CLI) | payer BC, SELFPAY ==
[2020-08-19 15:46] LABS: Basophils % 0.3 % (0.1-2.0); Eosinophils # 0.1 K/mm3 (0.0-0.4); Eosinophils % 1.2 % (0.1-12.0); Hematocrit 40.8 % (37.0-47.0); Hemoglobin 12.9 g/dL (12.2-16.2); Lymphocytes # 2.2 K/mm3 (0.7-4.5); Lymphocytes % 22.2 % (10-50); Mean Corpuscular HGB Conc 31.5 g/dL (31.8-35.4); Mean Corpuscular Hemoglobin 28.4 pg (27.0-31.2); Mean Corpuscular Volume 90.1 fl (81-99); Mean Platelet Volume 8.4 fl (7.4-10.4); Monocytes # 0.5 K/mm3 (0.1-1.0); Monocytes % 5.1 % (1.7-9.3); Neutrophils # 6.9 K/mm3 (1.8-7.8); Neutrophils % 71.2 % (37.0-80.0); Platelet Count 342 K/mm3 (142-424); Red Blood Count 4.53 M/mm3 (4.20-5.40); Red Cell Distribution Width 12.8 % (11.5-17.5); White Blood Count 9.7 K/mm3 (4.8-10.8)
[2020-08-19 16:08] LABS: Chloride 102 mmol/L (98-107); Potassium 4.3 mmoL/L (3.5-5.1); Sodium 142 mmol/L (136-145)
[2020-08-19 16:10] LABS: Alanine Aminotransferase 65 U/L (12-78); Alkaline Phosphatase 69 U/L (38-126); Aspartate Amino Transferase 34 U/L (14-36); Bilirubin,Total 0.5 mg/dl (0.2-1.3); Blood Urea Nitrogen 2 mg/dl (7-17); Estimated Glomerular Filt Rate 70 ml/min (>60); GFR (African American) 85 ML/MIN (>60)
[2020-08-19 16:11] LABS: Albumin Level 4.3 g/dl (3.5-5.0); Albumin/Globulin Ratio 1.4 (1.1-1.8); Anion Gap 16.3 mEq/L (5-15); Calcium 10.2 mg/dl (8.4-10.2); Carbon Dioxide 28 mmol/L (22.0-30.0); Glucose 89 mg/dl (74-100); Total Protein,Serum 7.3 g/dl (6.3-8.2)
[2020-08-19 16:16] LABS: C-Reactive Protein 10.5 mg/L (0-4)
[2020-08-19 16:42] LABS: Erythrocyte Sedimentation Rate 25 mm/hr (0-20)
== END ==
PROVIDERS: Visit Provider Internal Medicine
DX: M05.9 Rheumatoid arthritis with rheumatoid factor, unspecified (principal); M79.7 Fibromyalgia; B99.9 Unspecified infectious disease; Z79.1 Long term (current) use of non-steroidal anti-inflammatories (NSAID); Z79.52 Long term (current) use of systemic steroids
CPT/HCPCS: 36415; 80053; 85025; 85651; 86140

== ENCOUNTER → 2020-09-13 13:42 | Outpatient (CLI) | payer BC, SELFPAY ==
--- NOTE | 2020-09-13 13:45 | XR_ITS ---
PROCEDURE: XR ANKLE RT MIN 3V CLINICAL INDICATION: right ankle pain COMPARISON: CR ANKR3 ANKLE-RT-3 VIEWS from 03/20/2015 CR ANKR3 ANKLE-RT-3 VIEWS from 03/24/2015 CR ANKR3 ANKLE-RT-3 VIEWS from 04/05/2015 CR ANKR3 ANKLE-RT-3 VIEWS from 05/03/2015 FINDINGS: There has been interval removal the longitudinal screw within the distal fibula. 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 The screw track remains visible within the fibula. No acute fracture or dislocation. The ankle mortise is preserved and the talar dome has an unremarkable appearance. IMPRESSION: Interval hardware removal with mild degenerative change Dictated by: Allen Rosa MD 09/13/2020 17:00 Allen Rosa MD in [place] 09/13/2020 17:00
== END ==
PROVIDERS: PCP Family Medicine; Visit Provider Orthopaedic Surgery
DX: M25.571 Pain in right ankle and joints of right foot (principal)
CPT/HCPCS: 73610

== ENCOUNTER 2020-09-26 09:27 | Outpatient (RCR) | payer BC, SELFPAY | END 2020-09-26 10:00 | disposition home or self-care (01) | LOC: PT 09:27 | PROVIDERS: Visit Provider Orthopaedic Surgery | DX: M25.571 Pain in right ankle and joints of right foot (principal) | CPT/HCPCS: 97760 ==

== ENCOUNTER 2020-10-01 10:51 | Emergency (ER) | payer BC, SELFPAY ==
[2020-10-01 11:00] VITALS: BP 119/60; PULSE 81; RESP 18; O2SAT 98; BMI 29.2
--- NOTE | 2020-10-01 11:11 | HMH.EDUTC ---
[facility] [place] Clinical Impression: URI (upper respiratory infection) Qualifiers: URI type: unspecified URI Qualified Code(s): J06.9 - Acute upper respiratory infection, unspecified Otitis media Qualifiers: Otitis media type: unspecified Laterality: left Qualified Code(s): H66.92 - Otitis media, unspecified, left ear Disposition: Home, Self-Care Condition on Discharge: Good Instructions: DI for Sinusitis, Nausea and Vomiting-Adult, Cough, Middle Ear Infection Additional Instructions: *Monitor Temp, Over the counter Motrin or Tylenol as directed/as needed Tylenol every 4 hours and Motrin every 6 hours (as long as your family doctor has told you that you can take it) for fever or pain. and straight to ER if unable to lower temp less than 101.0 after medication given *Warm salt water gargles may help to soothe the throat *Throat Lozenges *Warm fluids like tea with honey may help to soothe the throat *Sleep elevated *Humidifier/Vaporizer *Flonase 2 sprays in each nostril daily but be aware that it may take 2-3 days before you notice improvement Follow up IMMEDIATELY for new or worsening symptoms or no Noticeable improvement over the next 48-72 hours. 911 for difficulty breathing or swallowing Prescriptions: Fluticasone Propionate [Flonase 50mcg nasal spray 16gm] 1 spr NS DAILY #1 bottle Transmission Status: Pending to [facility] Cefdinir [Omnicef 300mg Capsule] 300 mg PO BID #20 cap Transmission Status: Pending to [facility] Ondansetron [Zofran 4mg ODT] 4 mg PO TIDP PRN #6 tab PRN Reason: Nausea Transmission Status: Pending to [facility] Referrals: Adam Ireland MD [Primary Care Provider] - As needed Forms: Work/School Release Medical Decision Making - Jann Inquiry Pt receiving controlled substance: No Jann was queried for this patient: No Vital Signs: 10/01/20 11:00 Pulse Rate [Radial] 81 Respiratory Rate 18 Blood Pressure [Right Arm] 119/60 Blood Pressure Mean [Right Arm] 79 Blood Pressure Source [Right Arm] Automatic Cuff Blood Pressure Position [Right Arm] Sitting 02 Sat by Pulse Oximetry 98 Oxygen Delivery Method Room Air Orders (Tests/Meds): ORDERS Category Date Time Status Covid-19 Nasal PCR ([facility]) Routine Lab 10/01/20 11:03 Ordered Medical Decision Narrative: Patient state that she has taken cefdinir before without reaction or complications [facility] [place] - General Stated complaint: sore throat, earache, vomiting Time Seen by Provider: 10/01/20 11:11 Mode of Arrival: Ambulatory Source of Information: Patient Limitations: No Limitations Description of Symptoms (Recalled from Triage Doc. by RN): vomiting, cough, congestion HEENT Symptoms (Recalled from RN notes): Yes Resp Symptoms (Recalled from RN notes): No Skin Symptoms (Recalled from RN notes): No MS Symptoms (Recalled from RN notes): No Functional Status (Recalled from RN notes): wnl - History of Present Illness Provider Complaint: Patient statse that she hasnt been feeling well for several days States that she has been having sinus pain and pressure, cough, pressure feeling in her ears and vomiting States that today she wasnt feeling any better so she come in to get checked - Related Data Home Medications Medication Instructions Recorded Confirmed duloxetine 60 mg capsule,delayed 60 mg PO BID 30 Days #60 cap 07/14/18 09/26/20 release gabapentin 300 mg capsule 300 mg PO TID 20 Days #60 cap 01/26/19 09/26/20 prednisone 5 mg tablet 5 mg PO DAILY 04/13/19 09/26/20 celecoxib 200 mg capsule 200 mg PO DAILY cap 04/04/20 09/26/20 gabapentin 600 mg tablet 600 mg PO DAILY tab 04/04/20 09/26/20 sulfasalazine 500 mg 500 mg PO DAILY tab 04/04/20 09/26/20 tablet,delayed release Hydroxychloroquine Sulfate 200 mg PO DAILY 05/20/20 09/26/20 [Plaquenil 200mg tablet] Previous Rx's Medication Instructions Recorded Nystatin [Nystatin Susp 500,000 4 - 6 ml PO QID 10
[2020-10-01 11:38] VITALS: BP 119/60; PULSE 81; RESP 18; TEMP 36.7; O2SAT 98
--- NOTE | 2020-10-01 17:59 | PC.NURSE ---
Patient notified of positive covid results. Educated on quarantine.
== END 2020-10-01 11:39 | disposition home or self-care (01) ==
PROVIDERS: Emergency Provider Nurse Practitioner; PCP Family Medicine
DX: U07.1 COVID-19 (principal); H66.91 Otitis media, unspecified, right ear; F41.8 Other specified anxiety disorders; Z88.8 Allergy status to other drugs, medicaments and biological substances; Z87.891 Personal history of nicotine dependence; Z79.899 Other long term (current) drug therapy
CPT/HCPCS: 99201; U0003

== ENCOUNTER → 2020-10-29 07:43 | Outpatient (CLI) | payer BC, SELFPAY ==
[2020-10-29 07:56] LABS: Basophils # 0.1 K/mm3 (0-0.2); Basophils % 0.6 % (0.1-2.0); Eosinophils # 0.3 K/mm3 (0.0-0.4); Eosinophils % 3.3 % (0.1-12.0); Hematocrit 39.7 % (37.0-47.0); Lymphocytes # 2.5 K/mm3 (0.7-4.5); Lymphocytes % 31.7 % (10-50); Mean Corpuscular HGB Conc 32.6 g/dL (31.8-35.4); Mean Corpuscular Hemoglobin 28.7 pg (27.0-31.2); Mean Corpuscular Volume 87.9 fl (81-99); Mean Platelet Volume 8.1 fl (7.4-10.4); Monocytes # 0.3 K/mm3 (0.1-1.0); Monocytes % 3.8 % (1.7-9.3); Neutrophils # 4.8 K/mm3 (1.8-7.8); Neutrophils % 60.5 % (37.0-80.0); Platelet Count 342 K/mm3 (142-424); Red Blood Count 4.52 M/mm3 (4.20-5.40); Red Cell Distribution Width 14.2 % (11.5-17.5); White Blood Count 7.9 K/mm3 (4.8-10.8)
[2020-10-29 08:36] LABS: Chloride 103 mmol/L (98-107); Potassium 3.8 mmoL/L (3.5-5.1); Sodium 142 mmol/L (136-145)
[2020-10-29 08:39] LABS: Blood Urea Nitrogen 6 mg/dl (7-17); Estimated Glomerular Filt Rate 81 ml/min (>60); GFR (African American) 98 ML/MIN (>60)
[2020-10-29 08:40] LABS: Anion Gap 14.8 mEq/L (5-15); Calcium 9.9 mg/dl (8.4-10.2); Carbon Dioxide 28 mmol/L (22.0-30.0); Glucose 111 mg/dl (74-100)
[2020-10-29 09:13] LABS: Coronavirus 19 IgG Antibody Negative (Negative); Coronavirus 19 IgM Antibody Negative (Negative)
== END ==
PROVIDERS: Visit Provider Urology
DX: Z01.818 Encounter for other preprocedural examination (principal); Z03.818 Encounter for observation for suspected exposure to other biological agents ruled out; R32 Unspecified urinary incontinence
CPT/HCPCS: 36415; 80048; 85025; 86328

== ENCOUNTER 2020-10-31 09:14 | Day surgery (SDC) | payer BC, SELFPAY ==
[2020-10-25 14:09] VITALS: BMI 29.2
[2020-10-31] VITALS (7 sets, daily range): BP systolic 95–136; BP diastolic 41–86; PULSE 75–85; RESP 16–18; TEMP 36.1–36.2; O2SAT 93–100
--- NOTE | 2020-10-31 10:38 | P.PN_ITS ---
[facility] Anesthesia Checklist - Patient Identification Patient Identification: Arm Band - Structural Data Admitted From: Home Planned Operative Procedure/s: Interstim removal, placement of new Interstim device Consent for Planned Operative Procedure(s) Verified: Yes Verified Documents: Surgical Consent, History and Physical - NPO Status Verified Time NPO: 00:00 - Additional verifications Anesthesia Reactions: No Hx Blood Transfusions: No Blood Transfusion Reaction: No - Airway Assessment C-Spine Mobility Assessed: Yes (mp2) TMJ Mobility Assessed: Yes Dentition: Dentures-good fit - Neurological Assessment Level of Consciousness: Awake, Alert - Anesthesia Plan Anesthesia Risk discussed: Yes Anesthesia Plan: Verified ASA Class: II Anesthesia Type: MAC [facility] History I have reviewed the patient's past medical history: Yes Medical History: Reports:: Anxiety, Depression Denies:: Cancer, Diabetes Mellitus Type 1, Diabetes Mellitus Type 2, Internal Pacemaker, MRSA, Seizures *Have you ever received a pneumonia vaccine?: No *Have you received a flu vaccine this season?: Yes Other Medical History: Reports: Arthritis, Sinus Problems, Other. Denies: Blood Transfusion Reaction Anesthesia experience/problems:: nac Laterality Cases: Right: Arthroscopy Knee, Bilateral: Myringotomy (Ear Tubes), Tonsillectomy, Other Other Surgeries: Yes: Cholecystectomy, Colonoscopy, Hysterectomy-Total, Hysterectomy-Partial, Other. No: Pacemaker Amputation: No Fractures: No - *Social History Last grade of school completed: 11th or 12th Smoking Status: Never smoker Tobacco Type: cigarettes # Packs/Day (cigarettes): 1 Alcohol Intake: current Alcohol Intake Frequency:: a few times a month Substance Use Type: denies use *Occupational Status:: unemployed Housing: house Household Members: spouse *Travel in the last 8 weeks: None - Psychiatric History Pschychiatric History:: Reports:: Anxiety, Depression Family Hx:: Kidney Disease
--- NOTE | 2020-10-31 16:33 | HMH.OPNOTE ---
Date of procedure: 10/31/20 Pre-op Diagnosis:: Urge incontinence Post-op Diagnosis:: Same Procedure performed:: Removal of old InterStim generator and lead with replacement of new SureScan InterStim 2 generator and lead with programming. Surgeon:: Stevie Carpenter MD ASSEMBLY LINE LEADER:: Adam Strange Anesthesia: MAC Estimated blood loss (mL): 5 Clinical Note:: Patient is a 39-year-old white female with a long history of urge urinary incontinence. Her first InterStim was placed 15 years ago. She states her battery was changed about 7 years ago. Recent interrogation of her battery indicated no stimulation from it. Patient has a history of some ankle issues and has been unable to have an MRI with her old InterStim device but the newer devices are MRI compatible replacement with one that is compatible as planned today. Operative findings:: The old battery and lead were removed without difficulty. The new lead and battery were replaced without difficulty. Good stimulation of toes and carlos were noted on 4 of 4 leads. Operative note:: Patient taken to the operating room after informed consent was obtained. She was placed in the prone position on the operating table and padded appropriately. Monitored anesthesia care was administered. Her arms were placed in the swimmer's position. A bump was placed under her pelvis as well as under the ankles so that her toes to dangle. The grounding pad was placed the patient was prepped and draped in the standard surgical fashion. Local anesthetic was placed into the scar where the previous battery had been placed. Incision was then made in the old scar and we dissected down to the battery. The battery was then dissected free of its pocket and removed out of the wound. The leads were removed from the battery and the battery passed off of the field. A small incision was then made at the lead insertion site above the sacral foramen. The lead was identified and inspected. The lead was gently grasped and retracted from the pocket site via the lead insertion site. The proximal end of the lead was inspected. Gentle traction was then applied to the tined lead and it was removed in a straight line. Leg was inspected and removed intact. Hemostasis was achieved. C arm was then moved into AP position to provide fluoroscopic guidance of the sacrum. The medial edges of the foramina were identified and marked. The C-arm was then moved into lateral position to identify the S3 foramen. Needle entry point was determined local injection of lidocaine was administered. 3.5 foramen needle was placed in the superior medial aspect of the S3 foramen and appropriate needle depth was visualized utilizing fluoroscopy. Proper S3 needle location was confirmed by direct observation of the lifting of the perineum and plantar flexion of the great toe utilizing the test stimulation cable, the ENS and the pl sql programmer. The foramen needle stylette was removed and a directional guide was placed through the needle using markers on the guide to assure appropriate depth. The foramen needle was removed by sliding over the directional guide. A small incision was made peripherally to the directional guide through the skin. The lead introducer with dilator was placed over the directional guide and utilizing fluoroscopic guidance, the lead introducer was advanced until the radiopaque marker was jail through the foramen. Dilator was removed along with the directional guide. Using fluoroscopy the tined lead with a bent tip stylette was placed through the introducer until electrodes 2 and 3 straddled the anterior surface of the sacrum. All 4 electrodes were tested, observing carlos and plantar flexion of the great toe utilizing the test stimulation cable, ENS and pl sql programmer. After satisfactory lead positioning was confirmed, the introducer was retracted over the lead under continuous fluoroscopy, deploying the tines into presacral tissue. Retesting of al
== END 2020-10-31 14:38 | disposition home or self-care (01) ==
LOC: OR 09:15
PROVIDERS: PCP Family Medicine; Visit Provider Urology
PROC: (CPT 64590; principal; 2020-10-31 10:45)
DX: N39.41 Urge incontinence (principal); F41.9 Anxiety disorder, unspecified; F32.9 Major depressive disorder, single episode, unspecified; M19.90 Unspecified osteoarthritis, unspecified site; Z87.39 Personal history of other diseases of the musculoskeletal system and connective tissue; Z90.49 Acquired absence of other specified parts of digestive tract; Z88.8 Allergy status to other drugs, medicaments and biological substances; Z79.899 Other long term (current) drug therapy
CPT/HCPCS: 64590; 64581; 95971; 76000; 96374; C1767; C1778

== ENCOUNTER → 2020-11-23 09:48 | Outpatient (CLI) | payer BC, SELFPAY | PROVIDERS: PCP Family Medicine; Visit Provider Podiatrist | DX: M76.71 Peroneal tendinitis, right leg (principal) ==

== ENCOUNTER → 2020-12-06 15:28 | Outpatient (CLI) | payer BC, SELFPAY ==
--- NOTE | 2020-12-06 16:03 | XR_ITS ---
PROCEDURE: XR CHEST PORTABLE CLINICAL HISTORY: COVID Pneumonia COMPARISON: DX XR CHEST 2V from 06/30/2019 CR XR CHEST 2V from 07/16/[address] CHEST WO CON from 07/30/2019 CR XR CHEST 2V from 08/17/2019 FINDINGS: The cardiomediastinal silhouette and pulmonary vascularity are within normal limits. Patchy ground-glass infiltrate is present in both lower lobes. Upper lobes are clear. No acute bony abnormalities. IMPRESSION: Bilateral lower lobe patchy ground-glass infiltrate in keeping with Covid19 pneumonia Dictated by: Allen Rosa MD 12/06/2020 16:47 Allen Rosa MD in [place] 12/06/2020 16:47
== END ==
PROVIDERS: PCP Nurse Practitioner; Visit Provider Nurse Practitioner Family
DX: Z20.822 Contact with and (suspected) exposure to COVID-19 (principal); U07.1 COVID-19; R06.02 Shortness of breath
CPT/HCPCS: 71045; U0003

== ENCOUNTER → 2021-01-27 13:17 | Outpatient (CLI) | payer BC, SELFPAY ==
--- NOTE | 2021-01-27 13:17 | CT_ITS ---
PROCEDURE: CT ANKLE RT WO CON CLINICAL HISTORY: pain C/o right ankle pain Hx of ankle fx COMPARISON: CR ANKR3 ANKLE-RT-3 VIEWS from 03/20/2015 CR ANKR3 ANKLE-RT-3 VIEWS from 04/05/2015 CR XR ANKLE RT MIN 3V from 09/13/2020 TECHNIQUE: Axial images obtained with sagittal and coronal reformats. All CT scans at the facility use one or more dose reduction, viz: automated exposure control, ma/kV adjustment per patient size (including targeted exams where dose is matched to indication, i.e. head), or iterative reconstruction technique. FINDINGS: There is a well-circumscribed longitudinal rounded lucency in the distal shaft of the fibula presumed to be an area a track where a fixation device once resided but has been removed. This is 4.9 cm in length and 4 mm in with. This lucency extends to the tip of the distal fibula. No acute fracture evident. No malunion apparent. The talar dome has an unremarkable appearance. The ankle joint space is preserved. There is a well-circumscribed ossicle at the most anterior in superior aspect of the calcaneus at the talocalcaneal and cuboid junction. IMPRESSION: 1. Postsurgical changes of the distal fibula. Screw hole tract is present in the distal fibula from prior screw removal. No evidence of acute fracture or delayed nonunion 2. Os calcaneus secondaris Dictated by: Allen Rosa MD 01/28/2021 06:12 Allen Rosa MD in [place] 01/28/2021 06:12
== END ==
PROVIDERS: PCP Family Medicine; Visit Provider Podiatrist
DX: M19.171 Post-traumatic osteoarthritis, right ankle and foot (principal); M25.371 Other instability, right ankle; M76.71 Peroneal tendinitis, right leg; S86.311A Strain of muscle(s) and tendon(s) of peroneal muscle group at lower leg level, right leg, initial encounter
CPT/HCPCS: 73700

== ENCOUNTER 2021-02-05 19:27 | Observation (INO) | payer BC, SELFPAY ==
[2021-02-05] VITALS (9 sets, daily range): BP systolic 94–114; BP diastolic 47–81; PULSE 72–87; RESP 16–22; TEMP 36.7; O2SAT 98; BMI 26.7
--- NOTE | 2021-02-05 19:21 | ECG_ITS ---
APPROVED REPORT Exam: Resting ECG HR:80 bpm ECG Measurements Heart Rate 80 AXES [place] 154 P 66 QRSd 92 QRS 44 QT 380 T 61 QTc 438 Conclusion Normal sinus rhythm Normal ECG Electronically signed by : Adam Cleveland, 02/07/2021 15:13:00
--- NOTE | 2021-02-05 19:37 | XR_ITS ---
PROCEDURE: XR CHEST 2V CLINICAL HISTORY: Chest pain w/ SOA History of Covid19 COMPARISON: CR XR CHEST 2V from 07/16/[address] CHEST WO CON from 07/30/2019 CR XR CHEST 2V from 08/17/2019 CR XR CHEST PORTABLE from 12/06/[address] ANGIO CHEST from 02/05/2021 FINDINGS: The cardiomediastinal silhouette and pulmonary vascularity are within normal limits. Patchy density is present in both lower lobes consistent with bilateral lower lobe infiltrates and/or atelectatic change. No obvious effusions. Upper lobes are clear. No acute bony abnormalities. IMPRESSION: Bilateral lower lobe infiltrates and/or atelectatic unchanged on the right and slightly worse on the left Dictated by: Allen Rosa MD 02/06/2021 04:58 Allen Rosa MD in [place] 02/06/2021 04:58
--- NOTE | 2021-02-05 19:37 | CT_ITS ---
PROCEDURE: CT ANGIO CHEST CLINCIAL INDICATION: SOA with pain on inspiration Chest pain and shortness of breath COMPARISON: CT CT CHEST WO CON from 07/30/2019 TECHNIQUE: IV Contrast: 70ML Isovue 370 Axial images obtained with sagittal and coronal reformats. All CT scans at the facility use one or more dose reduction, viz: automated exposure control, ma/kV adjustment per patient size (including targeted exams where dose is matched to indication, i.e. head), or iterative reconstruction technique. FINDINGS: HEART AND MEDIASTINAL STRUCTURES: No evidence of pulmonary embolus, aortic aneurysm, or aortic dissection. There are few small mediastinal lymph nodes the largest in the AP window at 1.7 0.8 cm slightly more prominent from the previous exam. LUNGS AND PLEURAL SPACES: Multifocal bilateral ground-glass pulmonary opacities in the lung bases and subpleural regions of the right upper and right middle lobe. There is some soft tissue density inferior to the right inferior pulmonary vein in may be related to associated perivascular infiltrate or even adenopathy. No effusions. BONY STRUCTURES: Nonspecific striated appearance of the vertebral bodies of the spine. UPPER ABDOMEN: Fatty liver ADDITIONAL FINDINGS: No other significant abnormalities. IMPRESSION: 1. No evidence of pulmonary embolus. 2. Multifocal ground-glass pulmonary opacities nonspecific but could be infectious or inflammatory as described above. Dictated by: Allen Rosa MD 02/06/2021 06:41 Allen Rosa MD in [place] 02/06/2021 06:41
[2021-02-05 19:52] LABS: Basophils # 0.1 K/mm3 (0-0.2); Basophils % 0.4 % (0.1-2.0); Eosinophils # 0.2 K/mm3 (0.0-0.4); Eosinophils % 1.8 % (0.1-12.0); Hematocrit 39.5 % (37.0-47.0); Hemoglobin 12.6 g/dL (12.2-16.2); Lymphocytes # 3.2 K/mm3 (0.7-4.5); Lymphocytes % 24.5 % (10-50); Mean Corpuscular HGB Conc 31.8 g/dL (31.8-35.4); Mean Corpuscular Hemoglobin 27.8 pg (27.0-31.2); Mean Corpuscular Volume 87.3 fl (81-99); Mean Platelet Volume 8.4 fl (7.4-10.4); Monocytes # 0.6 K/mm3 (0.1-1.0); Monocytes % 4.3 % (1.7-9.3); Neutrophils % 68.9 % (37.0-80.0); Platelet Count 355 K/mm3 (142-424); Red Blood Count 4.52 M/mm3 (4.20-5.40); Red Cell Distribution Width 13.6 % (11.5-17.5)
[2021-02-05 19:57] LABS: Alanine Aminotransferase 13 U/L (12-78); Albumin Level 4.2 g/dl (3.5-5.0); Alkaline Phosphatase 64 U/L (38-126); Anion Gap 9.7 mEq/L (5-15); Aspartate Amino Transferase 41 U/L (14-36); Bilirubin,Indirect 0.2 mg/dL (0.0-0.9); Bilirubin,Total 0.2 mg/dl (0.2-1.3); Bilirubin,Unconjugated 0.2 mg/dL (0.0-1.1); Blood Urea Nitrogen 5 mg/dl (7-17); Calcium 9.6 mg/dl (8.4-10.2); Carbon Dioxide 37 mmol/L (22.0-30.0); Chloride 94 mmol/L (98-107); Creatinine Clearance Estimated 107 mL/min (50-200); Estimated Glomerular Filt Rate 80 ml/min (>60); GFR (African American) 97 ML/MIN (>60); Glucose 101 mg/dl (74-100); Sodium 138 mmol/L (136-145); Total Protein,Serum 7.1 g/dl (6.3-8.2)
[2021-02-05 20:03] LABS: C-Reactive Protein 8.3 mg/L (0-4)
[2021-02-05 20:09] LABS: Potassium 2.7 mmoL/L (3.5-5.1)
[2021-02-05 20:13] LABS: Troponin I < 0.01 ng/ml (0.00-0.034)
[2021-02-05 20:15] LABS: Erythrocyte Sedimentation Rate 31 mm/hr (0-20)
--- NOTE | 2021-02-05 20:15 | PC.NURSE ---
Lab called critical K+ Dr Malave notified and new orders received
[2021-02-05 20:17] LABS: Procalcitonin 0.035 ng/mL (0.0-2.0)
[2021-02-05 20:34] LABS: Magnesium 2.1 mg/dl (1.6-2.3)
--- NOTE | 2021-02-05 21:21 | HMH.EDCP ---
ED Disposition Clinical Impression: Pneumonitis, Tobacco use, Hypokalemia, SIRS (systemic inflammatory response syndrome) Chest pain Qualifiers: Chest pain type: pleurodynia Qualified Code(s): R07.81 - Pleurodynia Disposition: Admitted As Inpatient Condition on Discharge: Good - Critical Care Critical Care Time: No Attestation: On 02/05/21, the high probability of a clinically significant, sudden or life threatening deterioration of the following system(s) required my full and direct attention, intervention and personal management. The time I documented below is in addition to time spent performing reported procedures but includes the following listed in this critical care notation. Medical Decision Making - Medical Records Medical records reviewed: Yes: I reviewed the patient's medical records. - Jann Inquiry Pt receiving controlled substance: No Vital Signs: 02/05/21 19:28 02/05/21 22:01 02/05/21 22:02 Temperature 98.1 F Temperature Source Oral Pulse Rate 87 83 Pulse Rate [Right] 78 Respiratory Rate 22 Blood Pressure [Right Arm] 114/74 Blood Pressure Mean [Right Arm] 87 Blood Pressure Source [Right Arm] Automatic Cuff Blood Pressure Position [Right Arm] Supine 02 Sat by Pulse Oximetry 98 Oxygen Delivery Method Room Air - Lab Data Lab results reviewed: Yes: I reviewed the patient's lab results. Lab Results 02/05/21 19:29: WBC 13.0 H, RBC 4.52, Hgb 12.6, Hct 39.5, MCV 87.3, MCH 27.8, MCHC 31.8, RDW 13.6, Plt Count 355, MPV 8.4, Neut % (Auto) 68.9, Lymph % (Auto) 24.5, [place] % (Auto) 4.3, Eos % (Auto) 1.8, Baso % (Auto) 0.4, Neut # (Auto) 9.0 H, Lymph # (Auto) 3.2, [place] # (Auto) 0.6, Eos # (Auto) 0.2, Baso # (Auto) 0.1, ESR 31 H 02/05/21 19:29: Sodium 138, Potassium 2.7 L*, Chloride 94 L, Carbon Dioxide 37 H, Anion Gap 9.7, BUN 5 L, Creatinine 0.80, Estimated Creat Clear 107, Estimated GFR 80, Est GFR ( Amer) 97, Glucose 101 H, Calcium 9.6, Total Bilirubin 0.2, Direct Bilirubin 0.0, Conjugated Bilirubin 0.0, Indirect Bilirubin 0.2, Unconjugated Bilirubin 0.2, AST 41 H, ALT 13, Alkaline Phosphatase 64, Troponin I < 0.01, C-Reactive Protein 8.3 H, Total Protein 7.1, Albumin 4.2, Procalcitonin 0.035 02/05/21 19:29: Magnesium 2.1 02/05/21 19:29: D-Dimer 0.86 H 02/05/21 21:20: Lactate 1.1 Result diagrams: 02/05/21 19:29 02/05/21 19:29 Orders (Tests/Meds): ED MEDICATIONS Generic Name Dose Route Start Last Admin Trade Name Freq PRN Reason Stop Dose Admin Sodium Chloride 1,000 mls @ 999 mls/hr 02/05/21 19:45 02/05/21 19:42 Sod Chlor 0.9% 1000ml Bag IV 02/05/21 20:45 999 mls/hr .Q1H1M KINGSLEY Administration Azithromycin 500 mg/ Sodium 250 mls @ 250 mls/hr 02/05/21 21:30 02/05/21 21:36 Chloride IV 02/19/21 21:29 250 mls/hr Q24H KINGSLEY Administration Protocol Ceftriaxone Sodium 1 gm/ 50 mls @ 100 mls/hr 02/05/21 21:30 02/05/21 21:37 Sodium Chloride IV 02/19/21 21:29 100 mls/hr Q24H KINGSLEY Administration Protocol Sodium Chloride 3 ml 02/05/21 21:21 Sodium Chloride 3% 15ml Neb IH 03/07/21 21:20 ONCE PRN INDUCE SPUTUM COLLECTION Discontinued Medications Generic Name Dose Route Start Last Admin Trade Name Freq PRN Reason Stop Dose Admin Aspirin 324 mg 02/05/21 19:37 02/05/21 19:41 Aspirin 81mg Chewable Tablet PO 02/05/21 19:38 324 mg ONCE ONE Administration Enoxaparin Sodium 70 mg 02/06/21 22:02 Enoxaparin 80mg/0.8ml Syringe SQ 02/06/21 22:03 ONCE ONE Enoxaparin Sodium 70 mg 02/05/21 22:02 02/05/21 22:08 Enoxaparin 80mg/0.8ml Syringe SQ 02/05/21 22:03 70 mg ONCE ONE Administration Iopamidol 70 ml 02/05/21 20:47 02/05/21 20:48 Iopamidol-370 (76%);100ml Bottle IV 02/05/21 20:48 70 ml ONCE ONE Administration Ketorolac Tromethamine 30 mg 02/05/21 20:30 02/05/21 20:34 Ketorolac 30mg/Ml Vial IV 02/05/21 20:31 30 mg ONCE ONE Administration Methylprednisolone Sodium Cha
--- NOTE | 2021-02-05 21:59 | PC.NURSE ---
call out to pharmacy at this time.
--- NOTE | 2021-02-05 22:00 | INFXCTL.NOTE ---
per Xuan with pharmacy we can give a one time dose of 70mg of Lovenox.
[2021-02-05 22:10] LABS: Lactic Acid 1.1 mmol/L (0.7-2.1)
[2021-02-05 22:18] LABS: D-Dimer 0.86 ug/mL (0.0-0.5)
[2021-02-05 22:55] LABS: Troponin I < 0.01 ng/ml (0.00-0.034)
[2021-02-06] VITALS: BP 112/64; PULSE 76; RESP 24; TEMP 36.6; O2SAT 96
[2021-02-06 00:09] VITALS: BP 98/54; PULSE 66; RESP 18; TEMP 36.7; O2SAT 95
[2021-02-06 00:21] VITALS: BMI 28.0
--- NOTE | 2021-02-06 00:21 | PC.NURSE ---
patient up to floor via wheelchair.
[2021-02-06 02:19] LABS: Troponin I < 0.01 ng/ml (0.00-0.034)
[2021-02-06 03:49] VITALS: BP 99/56; PULSE 66; RESP 20; TEMP 36.6; O2SAT 94
--- NOTE | 2021-02-06 05:27 | PC.NURSE ---
pt is AxOx4, has complained of pain one time, stated pain was same as it was in ER, was treated per JAN, remains on room air with O2 sats 94-96%, breath sounds diminished, telemetry strips show NSR, HR 66-76
--- NOTE | 2021-02-06 07:16 | HMH.PHAVTE ---
[facility] Pharmacy VTE Monitoring - Patient Demographics Admission date: 02/06/21 Report Date: 02/06/21 Time: 07:16 Allergies/Adverse Reactions: Patient Allergies etanercept [From Enbrel] Allergy (Intermediate, Verified 02/06/21 01:00) Height: 1.63 m Weight: 74.616 kg Patient Problems: Current Active Problems Pneumonitis (Acute) Chest pain (Acute) Tobacco use (Acute) Hypokalemia (Acute) SIRS (systemic inflammatory response syndrome) (Acute) - VTE Risk Labs: VTE Related Lab Results Hgb 12.6 g/dL (12.2-16.2) 02/05/21 19:29 Hct 39.5 % (37.0-47.0) 02/05/21 19:29 Plt Count 355 K/mm3 (142-424) 02/05/21 19:29 BUN 5 mg/dl (7-17) L 02/05/21 19:29 Creatinine 0.80 mg/dl (0.52-1.04) 02/05/21 19:29 Estimated Creat Clear 107 mL/min (50-200) 02/05/21 19:29 VTE Score: 8 VTE Risk Level: Moderate Risk - Prophylaxis VTE Prophylaxis Ordered?: Yes Types of VTE Prophylaxis: TEDS Knee High Location of Applied Device: Bilateral Lower Extremeties
--- NOTE | 2021-02-06 07:21 | HMH.HP ---
*Admission Date: 02/06/21 *Chief complaint: Chest pain *History of present illness: 40-year-old female presented to the emergency department with sharp stabbing chest pain that began around 4:30 PM yesterday afternoon. After an hour of unrelenting pain patient came to the emergency department. She noted associated shortness of breath and worsening pain and restriction of breathing with deep breathing. She has not had any fevers or chills. Pain was nonradiating. Pain was not also not new as in patient's last 2 office visit she has brought up having brief episodes of chest pain that was felt to be noncardiac in nature. Patient has had COVID-19 with positive Covid tests on October 01 and December 06. Work-up in the emergency department was significant for hypokalemia as well as abnormal chest x-ray with groundglass opacities. These were confirmed with CT scan of the chest. Patient was admitted for pulmonology consultation. Past medical history is significant for rheumatoid arthritis for which the patient takes Plaquenil. This morning patient still notes that when she attempts to take a deep breath she feels as if her breathing is cut off . [facility] History I have reviewed the patient's past medical history: Yes Medical History: Reports:: Anxiety, Depression, Heart Murmur, Hypertension Denies:: Cancer, Diabetes Mellitus Type 1, Diabetes Mellitus Type 2, Internal Pacemaker, MRSA, Seizures *Have you ever received a pneumonia vaccine?: No *Have you received a flu vaccine this season?: Yes Other Medical History: Reports: Arthritis (Rheumatoid arthritis), Fibromyalgia, Hoarseness, Sinus Problems, Other. Denies: Blood Transfusion Reaction Laterality Cases: Right: Arthroscopy Knee, Bilateral: Myringotomy (Ear Tubes), Tonsillectomy, Other Other Surgeries: Yes: No Previous Surgery, Cholecystectomy, Colonoscopy, Hysterectomy-Total, Hysterectomy-Partial, Other. No: Pacemaker Amputation: No Fractures: No - *Social History Smoking Status: Current every day smoker Tobacco Type: cigarettes # Packs/Day (cigarettes): 1 Alcohol Intake: never Alcohol Intake Frequency:: a few times a month Substance Use Type: denies use *Occupational Status:: unemployed Housing: house Household Members: spouse *Travel in the last 8 weeks: None - Psychiatric History Pschychiatric History:: Reports:: Anxiety, Depression Family Hx:: Hyperlipidemia, Hypertension, Thyroid Disorder Review of Systems - Constitutional Denies anorexia, Denies body ache(s), Denies chills - Eyes Denies change in vision - ENT Denies abnormal hearing, Denies ear discharge - *Cardiovascular Reports chest pain, Reports chest pain at rest, Denies radiating jaw, neck or arm pain, Denies fast heart rate - *Respiratory Denies change in phlegm color, Denies chest congestion, Denies cough - *Gastrointestinal Denies belching, Denies bloating - *Genitourinary Denies difficulty urinating - *Musculoskeletal Denies abnormal walking, Denies joint pain - Integumentary/Breasts Denies hair loss - *Neurologic Denies confusion, Denies localized weakness, Denies seizure-like activity Meds Home Medications Medication Instructions Recorded Confirmed Type duloxetine 60 mg capsule,delayed 60 mg PO BID 30 Days #60 cap 07/14/18 02/06/21 History release prednisone 5 mg tablet 5 mg PO DAILY 04/13/19 02/06/21 History Hydroxychloroquine Sulfate 200 mg PO DAILY 05/20/20 02/06/21 History [Plaquenil 200mg tablet] Celecoxib [Celebrex 200mg cap] 200 mg PO BID 02/05/21 02/06/21 History Sertraline HCl [Zoloft] 25 mg PO DAILY 02/05/21 02/06/21 History hydroCHLOROthiazide 12.5 mg PO DAILY 02/05/21 02/06/21 History [Hydrochlorothiazide 12.5mg Tab] Gabapentin 800 mg PO DAILY 02/06/21 02/06/21 History albuterol sulfate 90 mcg/actuation 2 inh INHALATION Q6 PRN #8.5 g 02/06/21 Rx aerosol inhaler levoFLOXacin [Levofloxacin 750MG 750 mg PO DAILY #7 tab 02/06/21 Rx Tablet*] predniSONE [Predni
[2021-02-06 07:56] VITALS: BP 119/58; PULSE 65; RESP 16; TEMP 36.8; O2SAT 97
[2021-02-06 08:00] VITALS: PULSE 60; PULSE 65; RESP 16; O2SAT 97
--- NOTE | 2021-02-06 08:00 | CA_ITS ---
APPROVED REPORT Bilateral Lower Extremity Venous Study for DVT. Night Time Babysitter: CT Indications Lower Extremity Pain: Lower Extremity Edema: covid-19 with pos d dimer Vein Imaging CFV (R): compressive, spontaneous, phasic, augmentation SFJ (R): compressive, spontaneous, phasic, augmentation FEM (R): compressive, spontaneous, phasic, augmentation POP (R): compressive, spontaneous, phasic, augmentation DFV (R): compressive, spontaneous, phasic, augmentation PTV (R): compressive, spontaneous, phasic, augmentation GSV (R): compressive, spontaneous, phasic, augmentation SSV (R): compressive, spontaneous, phasic, augmentation Peroneals (R):compressive, spontaneous, phasic, augmentation GAS (R): compressive, spontaneous, phasic, augmentation CFV (L): compressive, spontaneous, phasic, augmentation SFJ (L): compressive, spontaneous, phasic, augmentation FEM (L): compressive, spontaneous, phasic, augmentation POP (L): compressive, spontaneous, phasic, augmentation DFV (L): compressive, spontaneous, phasic, augmentation PTV (L): compressive, spontaneous, phasic, augmentation GSV (L): compressive, spontaneous, phasic, augmentation SSV (L): compressive, spontaneous, phasic, augmentation Peroneals (L):compressive, spontaneous, phasic, augmentation GAS (L): compressive, spontaneous, phasic, augmentation Findings Color flow duplex demonstrates no evidence of DVT of the following bilateral lower extremity Veins:. Color flow duplex demonstrates no evidence of SVT of the Small and Great . Negative for DVT/SVT. Vessels fully compressible. Conclusion Color flow duplex demonstrates no evidence of DVT of the following bilateral lower extremity Veins:. Color flow duplex demonstrates no evidence of SVT of the Small and Great . Negative for DVT/SVT. Vessels fully compressible. Electronically signed by : Allen Rosa MD 02/06/2021 16:03:00
[2021-02-06 08:18] LABS: Chloride 107 mmol/L (98-107); Sodium 138 mmol/L (136-145)
[2021-02-06 08:19] LABS: Potassium 3.3 mmoL/L (3.5-5.1)
[2021-02-06 08:20] LABS: Basophils % 0.1 % (0.1-2.0); Eosinophils % 0.2 % (0.1-12.0); Hematocrit 33.9 % (37.0-47.0); Lymphocytes # 0.7 K/mm3 (0.7-4.5); Lymphocytes % 4.9 % (10-50); Mean Corpuscular HGB Conc 31.3 g/dL (31.8-35.4); Mean Corpuscular Hemoglobin 27.5 pg (27.0-31.2); Mean Platelet Volume 8.7 fl (7.4-10.4); Monocytes # 0.3 K/mm3 (0.1-1.0); Monocytes % 2.3 % (1.7-9.3); Neutrophils # 12.8 K/mm3 (1.8-7.8); Neutrophils % 92.5 % (37.0-80.0); Platelet Count 288 K/mm3 (142-424); Red Blood Count 3.85 M/mm3 (4.20-5.40); Red Cell Distribution Width 13.6 % (11.5-17.5); White Blood Count 13.8 K/mm3 (4.8-10.8)
[2021-02-06 08:21] LABS: MANUAL DIFFERENTIAL MANUAL DIFFERENTIAL (MANUAL DIFF)
[2021-02-06 08:22] LABS: Anion Gap 8.3 mEq/L (5-15); Blood Urea Nitrogen 7 mg/dl (7-17); Calcium 8.9 mg/dl (8.4-10.2); Carbon Dioxide 26 mmol/L (22.0-30.0); Creatinine Clearance Estimated 180 mL/min (50-200); Estimated Glomerular Filt Rate 138 ml/min (>60); GFR (African American) 167 ML/MIN (>60); Glucose 214 mg/dl (74-100)
--- NOTE | 2021-02-06 08:55 | HMH.PHAINT ---
MEDICATION RECONCILIATION COMPLETED USING EXTERNAL FILL HISTORY AND HOME PHARMACY
[2021-02-06 09:04] LABS: Hemoglobin 10.6 g/dL (12.2-16.2)
[2021-02-06 09:33] LABS: Lymphocytes % 5 % (10-50); Monocytes % 3 % (2-9); Neutrophils % 92 % (42-76); RBC Morphology Normal; Total Cells Counted 100
[2021-02-06 09:34] LABS: Platelet Estimate Normal
--- NOTE | 2021-02-06 10:38 | PC.NURSE ---
Sputum induced, pt unable to make productive cough. Encouraged patient to continue to cough.
--- NOTE | 2021-02-06 11:27 | HMH.PULMCON ---
*Admission Date: 02/06/21 *Reason for consult:: Pneumonia *History of present illness: Ms. Gutierrez is a 40-year-old male history of rheumatoid arthritis, fibromyalgia currently on Plaquenil along with prednisone, COVID-19 pneumonia twice so far initial normal October 05 was presented to the hospital with worsening respiratory failure and hyperkalemia and pulmonary was called for further management [facility] History Medical History: Reports:: Anxiety, Depression, Heart Murmur, Hypertension Denies:: Cancer, Diabetes Mellitus Type 1, Diabetes Mellitus Type 2, Internal Pacemaker, MRSA, Seizures *Have you ever received a pneumonia vaccine?: No *Have you received a flu vaccine this season?: Yes Other Medical History: Reports: Arthritis (Rheumatoid arthritis), Fibromyalgia, Hoarseness, Sinus Problems, Other. Denies: Blood Transfusion Reaction Laterality Cases: Right: Arthroscopy Knee, Bilateral: Myringotomy (Ear Tubes), Tonsillectomy, Other Other Surgeries: Yes: No Previous Surgery, Cholecystectomy, Colonoscopy, Hysterectomy-Total, Hysterectomy-Partial, Other. No: Pacemaker Amputation: No Fractures: No - *Social History Smoking Status: Current every day smoker Tobacco Type: cigarettes # Packs/Day (cigarettes): 1 Alcohol Intake: never Alcohol Intake Frequency:: a few times a month Substance Use Type: denies use *Occupational Status:: unemployed Housing: house Household Members: spouse *Travel in the last 8 weeks: None - Psychiatric History Pschychiatric History:: Reports:: Anxiety, Depression Family Hx:: Hyperlipidemia, Hypertension, Thyroid Disorder ROS - Cons Reports body ache(s), Reports fatigue - Card Reports shortness of breath with activity, Denies leg swelling - Resp Respiratory: Reports chest congestion, Reports non-productive cough, Denies excessive phlegm production - [place] Musculoskeletal: Reports joint pain Meds Home Medications Medication Instructions Recorded Confirmed Type duloxetine 60 mg capsule,delayed 60 mg PO BID 30 Days #60 cap 07/14/18 02/06/21 History release prednisone 5 mg tablet 5 mg PO DAILY 04/13/19 02/06/21 History Hydroxychloroquine Sulfate 200 mg PO DAILY 05/20/20 02/06/21 History [Plaquenil 200mg tablet] Celecoxib [Celebrex 200mg cap] 200 mg PO BID 02/05/21 02/06/21 History Sertraline HCl [Zoloft] 25 mg PO DAILY 02/05/21 02/06/21 History hydroCHLOROthiazide 12.5 mg PO DAILY 02/05/21 02/06/21 History [Hydrochlorothiazide 12.5mg Tab] Gabapentin 800 mg PO DAILY 02/06/21 02/06/21 History levoFLOXacin [Levofloxacin 750MG 750 mg PO DAILY #7 tab 02/06/21 Rx Tablet*] predniSONE [Prednisone 20mg 40 mg PO DAILY #14 tab 02/06/21 Rx Tab] Allergies Allergy/AdvReac Type Severity Reaction Status Date / Time etanercept [From Enbrel] Allergy Intermediate Verified 02/06/21 01:00 Exam - Constitutional Constitutional:: Present: no acute distress, comfortable - HENMT Exam HENMT: Present: normocephalic, atraumatic - Eye Exam Eyes:: Present: eyelids normal - Neck Exam Neck:: Present: normal visual inspection - Respiratory Exam Respiratory:: Present: able to speak in complete sentences, no respiratory distress, crackles. Absent: respiratory distress - Cardiovascular Exam Cardiac:: Present: S1, S2 - GI Exam GI:: Present: soft - Skin Exam Skin: Present: warm, no rash - Neurological Exam Neurological: Present: alert, awake, normal cognition - Extremities Exam Extremities: Present: no cyanosis, no clubbing, edema - Psychiatric Exam Psychiatric: Present: normal affect Internal Medicine - CN: Reslt - Labs CBC & Chem 7: 02/06/21 08:05 02/06/21 08:05 Labs: Short CBC 02/05/21 02/06/21 Range/Units 19:29 08:05 WBC 13.0 H 13.8 H (4.8-10.8) K/mm3 Hgb 12.6 10.6 L D (12.2-16.2) g/dL Hct 39.5 33.9 L (37.0-47.0) % Plt Count 355 288 (142-424) K/mm3 BMP 02/05/21 02/06/21 19:29 08:05 Sodium 138 138 Potassium 2.7 L
[2021-02-06 12:00] VITALS: PULSE 80
[2021-02-06 13:39] LABS: Adenovirus,PCR Not Detected (NotDetected); Bordetella Pertussis Not Detected (NotDetected); Chlamydophila Pneumoniae, PCR Not Detected (NotDetected); Coronavirus 229E Not Detected (NotDetected); Coronavirus NL63 Not Detected (NotDetected); Coronavirus OC43 Not Detected (NotDetected); Coronovirus HKU1,PCR Not Detected (NotDetected); Human Metapneumovirus Not Detected (NotDetected); Influenza A, PCR Not Detected (NotDetected); Influenza AH1, 2009 Not Detected (NotDetected); Influenza AH1, PCR Not Detected (NotDetected); Influenza AH3,PCR Not Detected (NotDetected); Influenza B, PCR Not Detected (NotDetected); Mycoplasma Pneumoniae, PCR Not Detected (NotDetected); Parainfluenza 1, PCR Not Detected (NotDetected); Parainfluenza 2, PCR Not Detected (NotDetected); Parainfluenza 3, PCR Not Detected (NotDetected); Parainfluenza 4, PCR Not Detected (NotDetected); Respiratory Syncytial Virus Not Detected (NotDetected); Rhinovirus/Enterovirus Not Detected (NotDetected)
--- NOTE | 2021-02-06 17:20 | HMH.DCSUM ---
General - General Admission date:: 02/06/21 Discharge date: 02/06/21 HPI HPI: 40-year-old female presented to the emergency department with sharp stabbing chest pain that began around 4:30 PM yesterday afternoon. After an hour of unrelenting pain patient came to the emergency department. She noted associated shortness of breath and worsening pain and restriction of breathing with deep breathing. She has not had any fevers or chills. Pain was nonradiating. Pain was not also not new as in patient's last 2 office visit she has brought up having brief episodes of chest pain that was felt to be noncardiac in nature. Patient has had COVID-19 with positive Covid tests on October 01 and December 06. Work-up in the emergency department was significant for hypokalemia as well as abnormal chest x-ray with groundglass opacities. These were confirmed with CT scan of the chest. Patient was admitted for pulmonology consultation. Past medical history is significant for rheumatoid arthritis for which the patient takes Plaquenil. This morning patient still notes that when she attempts to take a deep breath she feels as if her breathing is cut off . Hospital Course Hospital Course: Patient was admitted for her abnormal chest CT and to receive a pulmonology consultation. Patient has rheumatoid arthritis. Patient was seen by Dr. Whitney. 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 She had an upcoming appointment. As patient was saturating well on room air it was recommended she follow-up with her chrome plater helper and take a course of Levaquin and prednisone. Patient also had hypokalemia. Patient was placed on potassium supplementation. Objective Vital signs: Temp Pulse Resp BP Pulse Ox 98.3 F 80 16 119/58 L 97 02/06/21 07:56 02/06/21 12:00 02/06/21 08:00 02/06/21 07:56 02/06/21 08:00 no acute distress - *Routine Respiratory Exam Present: CTA bilaterally - *Routine Cardiovascular Exam Present: RRR - *Routine Abdominal Exam Present: soft, normoactive bowel sounds. Absent: tenderness Results Labs on day of discharge: Labs from last 24 hours 02/06/21 02/06/21 02/06/21 13:30 08:05 08:05 WBC 13.8 H RBC 3.85 L Hgb 10.6 L D Hct 33.9 L MCV 88.0 MCH 27.5 MCHC 31.3 L RDW 13.6 Plt Count 288 MPV 8.7 Neut % (Auto) 92.5 H Lymph % (Auto) 4.9 L [place] % (Auto) 2.3 Eos % (Auto) 0.2 Baso % (Auto) 0.1 Neut # (Auto) 12.8 H Lymph # (Auto) 0.7 [place] # (Auto) 0.3 Eos # (Auto) 0.0 Baso # (Auto) 0.0 Total Counted 100 Neutrophils % (Manual) 92 H Lymphocytes % (Manual) 5 L Monocytes % (Manual) 3 Platelet Estimate Normal RBC Morphology Normal ESR D-Dimer Sodium 138 Potassium 3.3 L D Chloride 107 Carbon Dioxide 26 D Anion Gap 8.3 BUN 7 D Creatinine 0.50 L D Estimated Creat Clear 180 Estimated GFR 138 Est GFR ( Amer) 167 D Glucose 214 H D Lactate Calcium 8.9 Magnesium Total Bilirubin Direct Bilirubin Conjugated Bilirubin Indirect Bilirubin Unconjugated Bilirubin AST ALT Alkaline Phosphatase Troponin I C-Reactive Protein Total Protein Albumin Procalcitonin Chlamy pneumoniae PCR Not detected Adenovirus (PCR) Not detected B. pertussis DNA (PCR) Not detected Coronavirus OC43 (PCR) Not detected Coronavirus HKU1 (PCR) Not detected Coronavirus 229E (PCR) Not detected Coronavirus NL63 (PCR) Not detected Human Metapneumovir PCR Not detected Influenza A (H1) PCR Not detected Influ A (H1N1/09) PCR Not detected Influenza A (H3) PCR Not detected Influenza Type A (PCR) Not detected Influenza Type B (PCR) Not detected M. pneumoniae (PCR) Not detected Parainfluenza 1 (PCR) Not detected Parainfluenza 2 (PCR) Not detected Parainfluenza 3 (PCR) Not detected Parainfluenza 4 (PCR) Not detec
== END 2021-02-06 13:30 | disposition home or self-care (01) ==
LOC: ER 20:09 → 2ND 22:08
PROVIDERS: Internal Medicine Pulmonary Disease; Admitting Provider Emergency Medicine; Emergency Provider Emergency Medicine; PCP Family Medicine; Visit Provider Family Medicine
DX: J18.9 Pneumonia, unspecified organism (principal); R07.9 Chest pain, unspecified; Z86.16 Personal history of COVID-19; E87.6 Hypokalemia; F32.9 Major depressive disorder, single episode, unspecified; M06.9 Rheumatoid arthritis, unspecified; Z79.52 Long term (current) use of systemic steroids; F41.9 Anxiety disorder, unspecified; R93.89 Abnormal findings on diagnostic imaging of other specified body structures; F17.210 Nicotine dependence, cigarettes, uncomplicated; M79.7 Fibromyalgia; Z91.09 Other allergy status, other than to drugs and biological substances
CPT/HCPCS: 36415; 71046; 71275; 80048; 80076; 83605; 83735; 84145; 84484; 85007; 85025; 85378; 85651; 86140; 87040; 87486; 87581; 87633; 87798; 93005; 93306; 93970; 94640; 96365; 96367; 96372; 96375; 99284; G0378; J0456; J2405; Q9967

== ENCOUNTER → 2021-08-25 10:56 | Outpatient (CLI) | payer BC, SELFPAY | PROVIDERS: PCP Family Medicine; Visit Provider Nurse Practitioner | DX: Z20.822 Contact with and (suspected) exposure to COVID-19 (principal) | CPT/HCPCS: C9803; U0003; U0005 ==

== ENCOUNTER → 2021-12-22 12:12 | Outpatient (CLI) | payer BC, SELFPAY ==
--- NOTE | 2021-12-22 12:18 | XR_ITS ---
FINAL REPORT CLINICAL HISTORY: CHEST PAIN, UNSPECIFIED TYPE, SOB COMPARISON: April 18, 2021 FINDINGS: Two views of the chest were obtained. The heart size and pulmonary vascularity are within normal limits. The mediastinum is normal. There is mild right lung base opacity. There is no pneumothorax. The bony thorax is intact. IMPRESSION: Mild right base opacity favors atelectasis. Reviewed, Interpreted and Dictated by Ariel Wyatt III, MD Transcribed by Bonilla Arambula Authenticated by Ariel Wyatt III, MD on 12/22/2021 01:20:52 PM [facility]
[2021-12-22 13:01] LABS: Basophils % 0.3 % (0.1-2.0); Eosinophils # 0.3 K/mm3 (0.0-0.4); Eosinophils % 2.1 % (0.1-12.0); Hematocrit 42.3 % (37.0-47.0); Lymphocytes # 2.3 K/mm3 (0.7-4.5); Mean Corpuscular HGB Conc 33.2 g/dL (31.8-35.4); Mean Corpuscular Hemoglobin 28.5 pg (27.0-31.2); Mean Corpuscular Volume 85.8 fl (81-99); Mean Platelet Volume 8.5 fl (7.4-10.4); Monocytes # 0.4 K/mm3 (0.1-1.0); Monocytes % 3.1 % (1.7-9.3); Neutrophils # 9.9 K/mm3 (1.8-7.8); Neutrophils % 76.5 % (37.0-80.0); Platelet Count 401 K/mm3 (142-424); Red Blood Count 4.93 M/mm3 (4.20-5.40); Red Cell Distribution Width 14.5 % (11.5-17.5)
[2021-12-22 13:25] LABS: Chloride 103 mmol/L (98-107); Sodium 136 mmol/L (136-145)
[2021-12-22 13:27] LABS: Alanine Aminotransferase 13 U/L (12-78); Aspartate Amino Transferase 24 U/L (14-36); Blood Urea Nitrogen 7 mg/dl (7-17); Estimated Glomerular Filt Rate 93 ml/min (>60); GFR (African American) 113 ML/MIN (>60)
[2021-12-22 13:28] LABS: Albumin Level 4.2 g/dl (3.5-5.0); Albumin/Globulin Ratio 1.6 (1.1-1.8); Alkaline Phosphatase 92 U/L (38-126); Bilirubin,Total 0.5 mg/dl (0.2-1.3); Calcium 8.9 mg/dl (8.4-10.2); Carbon Dioxide 28 mmol/L (22.0-30.0); Globulin 2.7 g/dL (1.3-3.2); Glucose 86 mg/dl (74-100); Total Protein,Serum 6.9 g/dl (6.3-8.2)
[2021-12-22 13:40] LABS: Troponin I < 0.01 ng/ml (0.00-0.034)
[2021-12-22 13:57] LABS: D-Dimer 0.63 ug/mL (0.0-0.5)
== END ==
PROVIDERS: PCP Family Medicine; Visit Provider Nurse Practitioner Family
DX: R07.9 Chest pain, unspecified (principal); R06.02 Shortness of breath
CPT/HCPCS: 36415; 71046; 80053; 84484; 85025; 85378

== ENCOUNTER 2021-12-28 12:22 | Inpatient (IN) | payer BC, SELFPAY ==
[2021-12-28] VITALS (27 sets, daily range): BP systolic 88–122; BP diastolic 41–84; PULSE 97–141; RESP 18–56; TEMP 36.5–36.9; O2SAT 89–98; BMI 25.0; BMI 28.9
--- NOTE | 2021-12-28 12:18 | ECG_ITS ---
APPROVED REPORT Exam: Resting ECG HR:138 bpm ECG Measurements Heart Rate 138 AXES AZ 137 P 22 QRSd 101 QRS 15 QT 289 T 31 QTc 370 Conclusion SINUS TACHYCARDIA ABNORMAL RHYTHM ECG UNCONFIRMED REPORT Electronically signed by : Adam Cleveland MD 12/29/2021 19:22:47
--- NOTE | 2021-12-28 12:39 | XR_ITS ---
FINAL REPORT CLINICAL HISTORY: SOB COMPARISON: December 22, 2021 FINDINGS: The heart size is normal. The mediastinum is normal. There is increasing atelectasis in the lung bases. Small pleural effusions are new from the prior exam. There is no pneumothorax. There is no osseous abnormality. IMPRESSION: Increasing bibasilar atelectasis with new small pleural effusions. Reviewed, Interpreted and Dictated by Isauro Mckeon MD Transcribed by Bonilla Arambula Authenticated by Isauro Mckeon MD on 12/28/2021 02:45:41 PM [facility]
--- NOTE | 2021-12-28 12:39 | CT_ITS ---
FINAL REPORT TECHNIQUE: Thin section axial CT images were performed from the lung apices to the upper abdomen after the administration of IV contrast. 3-D and MIP reconstructions performed. This study was performed with techniques to keep radiation doses as low as reasonably achievable (ALARA). Individualized dose reduction techniques using automated exposure control or adjustment of mA and/or kV according to the patient''s size were employed. CLINICAL HISTORY: SOB FINDINGS: There is no evidence for pulmonary embolism. The thoracic aorta is patent without evidence of dissection. Mediastinal vasculature is well opacified. There is no axillary adenopathy. There is no hilar adenopathy. There are multiple enlarged mediastinal lymph nodes measuring up to 1.9 cm in greatest dimension. The heart size is normal. There is a large pericardial effusion measuring up to 2.8 cm. There is no pulmonary artery filling defects. There is dense bibasilar consolidation. Small bilateral pleural effusions are present. Lung window images demonstrate no suspicious pulmonary nodule or infiltrate. Limited images of the upper abdomen are unremarkable. IMPRESSION: No evidence of pulmonary embolism or aortic dissection. Dense bibasilar consolidation. Large pericardial effusion. Nonspecific mediastinal adenopathy. Reviewed, Interpreted and Dictated by Isauro Mckeon MD Transcribed by Maliha Sherman Authenticated by Isauro cMkeon MD on 12/28/2021 01:57:07 PM [facility]
[2021-12-28 12:50] LABS: Coronavirus 19, PCR Not Detected (NotDetected); Influenza A, PCR Not Detected (NotDetected); Influenza B, PCR Not Detected (NotDetected)
[2021-12-28 12:51] LABS: Basophils # 0.1 K/mm3 (0-0.2); Basophils % 0.4 % (0.1-2.0); Eosinophils # 0.2 K/mm3 (0.0-0.4); Eosinophils % 0.8 % (0.1-12.0); Hematocrit 42.2 % (37.0-47.0); Hemoglobin 13.8 g/dL (12.2-16.2); Lymphocytes # 2.3 K/mm3 (0.7-4.5); Lymphocytes % 7.2 % (10-50); Mean Corpuscular HGB Conc 32.6 g/dL (31.8-35.4); Mean Corpuscular Volume 85.9 fl (81-99); Mean Platelet Volume 8.7 fl (7.4-10.4); Monocytes # 1.5 K/mm3 (0.1-1.0); Monocytes % 4.6 % (1.7-9.3); Neutrophils # 27.8 K/mm3 (1.8-7.8); Neutrophils % 87.1 % (37.0-80.0); Platelet Count 603 K/mm3 (142-424); Red Blood Count 4.91 M/mm3 (4.20-5.40); White Blood Count 31.9 K/mm3 (4.8-10.8)
--- NOTE | 2021-12-28 12:52 | PC.NURSE ---
Patient to radiology
[2021-12-28 12:54] LABS: MANUAL DIFFERENTIAL MANUAL DIFFERENTIAL (MANUAL DIFF)
[2021-12-28 13:00] LABS: Anion Gap 16.4 mEq/L (5-15); Blood Urea Nitrogen 10 mg/dl (7-17); Calcium 8.9 mg/dl (8.4-10.2); Carbon Dioxide 24 mmol/L (22.0-30.0); Chloride 102 mmol/L (98-107); Creatinine Clearance Estimated 56 mL/min (50-200); Estimated Glomerular Filt Rate 42 ml/min (>60); GFR (African American) 51 ML/MIN (>60); Glucose 114 mg/dl (74-100); Potassium 3.4 mmoL/L (3.5-5.1); Sodium 139 mmol/L (136-145)
[2021-12-28 13:03] LABS: Lactic Acid 2.4 mmol/L (0.7-2.1)
[2021-12-28 13:06] LABS: D-Dimer 1.58 ug/mL (0.0-0.5)
[2021-12-28 13:13] LABS: Troponin I 0.02 ng/ml (0.00-0.034)
[2021-12-28 13:17] LABS: Lymphocytes % 12 % (10-50); Monocytes % 3 % (2-9); Neutrophils % 85 % (42-76); Platelet Estimate Marked Increase; RBC Morphology Normal; Total Cells Counted 100
--- NOTE | 2021-12-28 13:33 | HMH.EDGENADL ---
ED Disposition Clinical Impression: Pericardial effusion Pericarditis Qualifiers: Pericarditis type: associated with other disease Chronicity: acute Qualified Code(s): I30.9 - Acute pericarditis, unspecified Pneumonia Qualifiers: Pneumonia type: due to unspecified organism Laterality: bilateral Lung location: lower lobe of lung Qualified Code(s): J18.9 - Pneumonia, unspecified organism Disposition: Admitted As Inpatient Condition on Discharge: [facility] - Critical Care Critical Care Time: No Attestation: On 12/28/21, the high probability of a clinically significant, sudden or life threatening deterioration of the following system(s) required my full and direct attention, intervention and personal management. The time I documented below is in addition to time spent performing reported procedures but includes the following listed in this critical care notation. Medical Decision Making - Jann Inquiry Pt receiving controlled substance: Yes Jann was queried for this patient: Yes Risks and benefits of using a controlled substance: were not discussed with pt by me Vital Signs: 12/28/21 12:22 12/28/21 12:24 12/28/21 12:50 Temperature 97.7 F Temperature Source Oral Pulse Rate 141 H 122 H Pulse Rate [Radial] 139 H Respiratory Rate 56 H 48 H Blood Pressure 90/56 L Blood Pressure [Right Arm] 103/49 L Blood Pressure Mean 67 Blood Pressure Mean [Right Arm] 67 Blood Pressure Position [Right Arm] Sitting 02 Sat by Pulse Oximetry 91 L 92 L Oxygen Delivery Method Room Air Oxygen Flow Rate (LPM) 12/28/21 13:05 12/28/21 13:13 12/28/21 13:31 Temperature Temperature Source Pulse Rate 121 H 121 H Pulse Rate [Radial] Respiratory Rate Blood Pressure 115/69 115/69 115/65 Blood Pressure [Right Arm] Blood Pressure Mean 84 76 Blood Pressure Mean [Right Arm] Blood Pressure Position [Right Arm] 02 Sat by Pulse Oximetry 96 Oxygen Delivery Method Nasal Cannula Oxygen Flow Rate (LPM) 3 - Lab Data Lab Results 12/28/21 12:15: WBC 31.9 H*, RBC 4.91, Hgb 13.8, Hct 42.2, MCV 85.9, MCH 28.0, MCHC 32.6, RDW 14.0, Plt Count 603 H, MPV 8.7, Neut % (Auto) 87.1 H, Lymph % (Auto) 7.2 L, [place] % (Auto) 4.6, Eos % (Auto) 0.8, Baso % (Auto) 0.4, Neut # (Auto) 27.8 H, Lymph # (Auto) 2.3, [place] # (Auto) 1.5 H, Eos # (Auto) 0.2, Baso # (Auto) 0.1, Total Counted 100, Neutrophils % (Manual) 85 H, Lymphocytes % (Manual) 12, Monocytes % (Manual) 3, Platelet Estimate Marked increase, RBC Morphology Normal 12/28/21 12:15: D-Dimer 1.58 H 12/28/21 12:15: Sodium 139, Potassium 3.4 L, Chloride 102, Carbon Dioxide 24, Anion Gap 16.4 H, BUN 10, Creatinine 1.40 H, Estimated Creat Clear 56, Estimated GFR 42 L, Est GFR ( Amer) 51 L, Glucose 114 H, Calcium 8.9, Troponin I 0.02 12/28/21 12:15: Lactate 2.4 H 12/28/21 12:15: NT-Pro-B Natriuret Pep 1170 H 12/28/21 12:40: SARS-CoV-2 (PCR) Not detected, Influenza A Untype (PCR) Not detected, Influenza Type B (PCR) Not detected Result diagrams: 12/28/21 12:15 12/28/21 12:15 Orders (Tests/Meds): ED MEDICATIONS Generic Name Dose Route Start Last Admin Trade Name Freq PRN Reason Stop Dose Admin Acetaminophen 650 mg 12/28/21 15:17 Acetaminophen 325mg Tab PO 01/27/22 15:16 Q4HP PRN Fever or Mild Pain Duloxetine HCl 60 mg 12/28/21 21:00 Duloxetine 30mg Capsule. PO 01/27/22 20:59 BID KINGSLEY Gabapentin 800 mg 12/28/21 21:00 Gabapentin 400mg Capsule PO 01/27/22 20:59 TID KINGSLEY Vancomycin/PEG/NADA/Lysine/Water 1.25 gm in 250 mls @ 125 mls/hr 12/28/21 16:00 Vancomycin 1.25gm/250ml (Peg) Premix IV 12/28/21 17:59 ONCE ONE Cefepime HCl 2 gm/ Sodium 100 mls @ 100 mls/hr 12/29/21 03:00 Chloride IV 01/11/22 14:59 Q12H KINGSLEY Vancomycin HCl 1,000 mg/ 250 mls @ 125 mls/hr 12/29/21 16:00 Sodium Chloride IV 01/12/22 15:59 Q24H KINGSLEY Sodium Chloride 1,000 mls @ 50 mls/hr 12/28/21 15:17 Sod Chlor
[2021-12-28 14:15] LABS: NT Pro Brain Natriuretic Pep. 1170 pg/mL (0-125)
--- NOTE | 2021-12-28 14:33 | CA_ITS ---
APPROVED REPORT EXAM: Comprehensive 2D, Doppler, and color-flow Echocardiogram Strike Planning Applications: Stacy Sidhu CRT Ht: 5 ft 4 in Wt: 146lbs BSA: 1.71 BP: 115/65 mmHg Indications: Murmur, Shortness of Breath, covid 2020, pericardial effuision per CT. PERICARDIOCENTESIS PRE AND POST IMAGES 2D Dimensions LVOT 1.94 cm (M/F) 1.5-2.5 M-Mode Dimensions RVDd 2.16 cm (0.9-2.6) LA Diam 2.34 cm (1.9-4.0) LVDd 4.07 cm (3.5-5.7) Ao Diam 3.87 cm (2.0-3.7) LVDs 3.09 cm (3.5-5.7) IVSd 1.26 cm (0.6-1.1) PWd 0.76 cm (0.6-1.1) EF (Teich) 48.40% FS 24.10% EDV (Teich) 72.90 mL ESV (Teich) 37.60 mL LV Diastology E Decel Time 150.00 (160-240 msec) E/A Ratio 0.82 Aortic Valve AO Peak GR. 8.00 mmHg Mitral Valve MV E Max Kamlesh. 54.00 (40-130 cm/s) MV A Velocity 65.00 (40-130 cm/s) E/A Ratio 0.82 MV Decel. Time 150.00 (160-240 ms) MV PHT 44.00 ms Pulmonary Valve PV Peak Velocity 67.00 (50-150 cm/s) Tricuspid Valve TR P. Velocity 227.00 cm/s RAP Estimate 10.00 mmHg RVSP 30.50 mmHg Left Ventricle Left atrium is normal size, left ventricle is normal size, there is preserved left ventricular systolic function, visually estimated ejection fraction 55% with no regional wall motion abnormality. Diastolic parameters are inconclusive. Right Ventricle Right atrium and right ventricle are normal size and contractility. Aortic Valve Aortic valve is grossly normal, there is no aortic stenosis or aortic insufficiency. Mitral Valve Mitral valve grossly normal, there is trace mitral regurgitation. Tricuspid Valve Tricuspid valve is grossly normal, there is trace tricuspid regurgitation, tricuspid regurgitation jet velocity is inadequate for calculation of the right ventricular systolic pressure. Pulmonic Valve Pulmonic valve is poorly visualized. Great Vessels Aortic root is normal size. Inferior vena cava is not well visualized. Pericardium Moderate sized pericardial effusion with echodense organized material seen in the pericardial space. Conclusion 1. Normal left ventricular size, preserved left ventricular systolic function, visually estimated ejection fraction 55% with no obvious regional wall motion abnormality, diastolic parameters are inconclusive. 2. Trace mitral and tricuspid regurgitation. 3. Moderate sized pericardial effusion with echodense organized material seen in the pericardial space. 4. Inferior vena cava is not visualized Electronically signed by : Johann Fountain MD 12/29/2021 14:11:14
--- NOTE | 2021-12-28 14:44 | PC.NURSE ---
OH ALEXANDER speaking with Dr. Ireland
--- NOTE | 2021-12-28 14:58 | PC.NURSE ---
notified care management of admission, spoke with edgardo
--- NOTE | 2021-12-28 15:13 | HMH.PHACONS ---
- Pharmacy Consult Date: 12/28/21 Time: 15:13 Referring provider: DR YARBROUGH Reason for Consult:: VANCOMYCIN DOSING CONSULT Allergies and ADEs:: Allergies Allergy/AdvReac Type Severity Reaction Status Date / Time etanercept [From Enbrel] Allergy Intermediate Verified 04/13/21 13:47 Home Medications:: Home Medications Medication Instructions Recorded Confirmed Type duloxetine 60 mg capsule,delayed 60 mg PO BID 30 Days #60 cap 07/14/18 12/28/21 History release prednisone 5 mg tablet 5 mg PO DAILY 04/13/19 12/28/21 History Celecoxib [Celebrex 200mg cap] 200 mg PO BID 02/05/21 12/28/21 History Gabapentin 800 mg PO TID 02/06/21 12/28/21 History albuterol sulfate 90 mcg/actuation 2 inh INHALATION Q6 PRN #8.5 g 02/06/21 12/28/21 Rx aerosol inhaler Height: 1.63 m Weight: 66.224 kg Laboratory Results:: Laboratory Results - last 24 hr 12/28/21 12:15: WBC 31.9 H*, RBC 4.91, Hgb 13.8, Hct 42.2, MCV 85.9, MCH 28.0, MCHC 32.6, RDW 14.0, Plt Count 603 H, MPV 8.7, Neut % (Auto) 87.1 H, Lymph % (Auto) 7.2 L, [place] % (Auto) 4.6, Eos % (Auto) 0.8, Baso % (Auto) 0.4, Neut # (Auto) 27.8 H, Lymph # (Auto) 2.3, [place] # (Auto) 1.5 H, Eos # (Auto) 0.2, Baso # (Auto) 0.1, Total Counted 100, Neutrophils % (Manual) 85 H, Lymphocytes % (Manual) 12, Monocytes % (Manual) 3, Platelet Estimate Marked increase, RBC Morphology Normal 12/28/21 12:15: D-Dimer 1.58 H 12/28/21 12:15: Sodium 139, Potassium 3.4 L, Chloride 102, Carbon Dioxide 24, Anion Gap 16.4 H, BUN 10, Creatinine 1.40 H, Estimated Creat Clear 56, Estimated GFR 42 L, Est GFR ( Amer) 51 L, Glucose 114 H, Calcium 8.9, Troponin I 0.02 12/28/21 12:15: Lactate 2.4 H 12/28/21 12:15: NT-Pro-B Natriuret Pep 1170 H 12/28/21 12:40: SARS-CoV-2 (PCR) Not detected, Influenza A Untype (PCR) Not detected, Influenza Type B (PCR) Not detected Medical History: Reports:: Anxiety, Depression, Heart Murmur, Hypertension Denies:: Cancer, Diabetes Mellitus Type 1, Diabetes Mellitus Type 2, Internal Pacemaker, MRSA, Seizures Assessment and Plan - Assessment and plan all Dx Assessment and Plan for all problems:: Pharmacokinetic dosing service Objective: Patient: Floor: Age: 41 yo Serum creatinine: 1.4 mg/dL Height: 64.2 Inches Weight (kg): 66.224 Diagnosis: PNEUMONIA Assessment: IBW (kg): 55.16 Dosing wt(kg): 66.224 Estimated Creatinine clearance (ml/min): 47.0 CRCL method: Cockcroft and Gault using ibw(default). Drug selected: Vancomycin Loading dose (mg): Vd (liters): 46.4 (factor used: 0.7 L/kg) Noé (hr-1): 0.043 Half life (hrs): 16.12 CLvanco=?? 1.995 L/hr Recommended dose: 1000 mg Interval: 24 hrs Infusion time (hrs): 2.0 Predicted peak (mcg/mL): 32.1 Predicted trough (mcg/mL): 12.46 Total body weight is being used for vancomycin dosing. Recommendations: Give Vancomycin 1000 mg q 24 hrs with an expected Cpeak of 32.1 mcg/ml and an expected Ctrough of 12.46 mcg/ml TO START 12/29/21 AT 1315. PATIENT GIVEN ONE-TIME LOADING DOSE IN THE ED OF VANCOMYCIN 1250 MG IV ONCE 12/28/21 AT 1315. AUC 0-24 /YOGI Data: YOGI 0.5 mcg/mL:?? AUC/YOGI:? 1002.5 YOGI 1.0 mcg/mL:?? AUC/YOGI:? 501.3 --------- YOGI 1.5 mcg/mL:?? AUC/YOGI:? 334.2 YOGI 2.0 mcg/mL:?? AUC/YOGI:? 250.6 Thank you for the consult, will continue to follow.
--- NOTE | 2021-12-28 15:15 | PC.NURSE ---
REPORT CALLED TO FLOOR
--- NOTE | 2021-12-28 15:16 | PC.NURSE ---
ECHO at bedside
--- NOTE | 2021-12-28 15:29 | PC.NURSE ---
ECHO AT BEDSIDE
--- NOTE | 2021-12-28 15:45 | PC.NURSE ---
DR GORE AT BEDSIDE
--- NOTE | 2021-12-28 15:53 | PC.NURSE ---
PT PLACED ON NON-REBREATHER FOR O2 SATS OF 89% WITH 5
--- NOTE | 2021-12-28 16:07 | XR_ITS ---
PROCEDURE INFORMATION: Exam: XR Chest Exam date and time: 12/28/2021 4:07 PM Age: 41 years old Clinical indication: Device placement; Other: Pericardial drain; Additional info: Post pericardiocentesis TECHNIQUE: Imaging protocol: XR of the chest. Views: 1 view. COMPARISON: CR XR CHEST PORTABLE 12/28/2021 12:58 PM FINDINGS: Lungs: Bibasilar atelectasis. Mild pulmonary vascular congestion. Pleural spaces: Bilateral pleural effusions. Heart/Mediastinum: Cardiomegaly. Bones/joints: Unremarkable. IMPRESSION: 1. Cardiomegaly and mild pulmonary vascular congestion. 2. Bilateral pleural effusions and bibasilar atelectasis.
[2021-12-28 16:48] LABS: Reflex Lactic Add Lactic Reflex
--- NOTE | 2021-12-28 16:52 | HMH.CNCARD ---
History of Present Illness Consult date: 12/28/21 Requesting physician: Adam Ireland Consult reason: shortness of breath Chief complaint: Pericardial effusion Additional Medical History:: 1. Rheumatoid Arthritis A. Chronic prednisone therapy for at least 3 years 2. History of recurrent pleural effusion status post work-up at [facility], results unknown 3. History of recent lung biopsy reportedly benign 4. Tobacco use 5. History of hypertension History of present illness: States she has been sick since last week. She has chest pain in the sternal area that increases with laying back, coughing, deep breath. Denies any significant cough, no sputum production, no hemoptysis. She has had a fever. Denies any leg pain or swelling. She feels her heart race with any exertion. She feels short of breath. She was seen by her primary care provider last Saturday. She had blood work and a chest x-ray done. In follow-up today D-dimer was seen to be elevated and she was sent to the emergency department. She has a history of fibromyalgia and rheumatoid arthritis. She says that for the past couple of years she has had recurrent episodes of bronchitis and fluid in the lungs. In September she had a lung biopsy done at [facility]. She says nothing was found. She has been on steroids for the past 3 years. She is a smoker. The above per OH Lam MD We were consulted due to large pericardial effusion noted on CT scan of the chest today. When we arrived to see the patient in the ER systolic blood pressure was in the 80s and patient was exhibiting tachypnea. On physical exam patient did exhibit pulsus paradoxus and telemetry indicated electrical alternans. Echocardiogram was in progress which did demonstrate a large pleural effusion with RV collapse. Decision was made to proceed with pericardiocentesis which was undertaken successfully by Dr. Gautam using a 6 [place]ian pericardiocentesis kit. Within 30 minutes of the catheter being placed she had drained 400-500 mL of fluid. Blood pressure improved and heart rate also began to improve as well. Post procedure chest x-ray did not immediately exhibit evidence of pneumothorax. [facility] History Medical History: Reports:: Anxiety, Depression, Heart Murmur, Hypertension Denies:: Cancer, Diabetes Mellitus Type 1, Diabetes Mellitus Type 2, Internal Pacemaker, MRSA, Seizures *Have you ever received a pneumonia vaccine?: Yes *Have you received a flu vaccine this season?: Yes Other Medical History: Reports: Arthritis, Fibromyalgia, Hoarseness, Sinus Problems, Other. Denies: Blood Transfusion Reaction Laterality Cases: Right: Arthroscopy Knee, Bilateral: Myringotomy (Ear Tubes), Tonsillectomy, Other Other Surgeries: Yes: No Previous Surgery, Cholecystectomy, Colonoscopy, Hysterectomy-Total, Hysterectomy-Partial, Other. No: Pacemaker Amputation: No Fractures: No - *Social History Smoking Status: Current every day smoker Tobacco Type: cigarettes # Packs/Day (cigarettes): 1 Alcohol Intake: never Alcohol Intake Frequency:: a few times a month Substance Use Type: denies use *Occupational Status:: unemployed Housing: house Household Members: spouse *Travel in the last 8 weeks: Inside the [place] - Psychiatric History Pschychiatric History:: Reports:: Anxiety, Depression Family Hx:: Hyperlipidemia, Hypertension, Thyroid Disorder Meds Home Medications Medication Instructions Recorded Confirmed Type duloxetine 60 mg capsule,delayed 60 mg PO BID 30 Days #60 cap 07/14/18 12/28/21 History release prednisone 5 mg tablet 5 mg PO DAILY 04/13/19 12/28/21 History Celecoxib [Celebrex 200mg cap] 200 mg PO BID 02/05/21 12/28/21 History Gabapentin 800 mg PO TID 02/06/21 12/28/21 History albuterol sulfate 90 mcg/actuation 2 inh INHALATION Q6 PRN #8.5 g 02/06/21 12/28/21 Rx aerosol inhaler Allergies Allergy/AdvReac Type Severity Reaction Status Date / Time etanercept [Fro
--- NOTE | 2021-12-28 17:00 | PC.NURSE ---
PERICARDIAL FLUID DRAINED APPROX 240CC SENT TO LAB
--- NOTE | 2021-12-28 17:19 | PC.NURSE ---
Attempted to call [facility] 3 times to request records, with no answer. Will try again before the end of my shift
--- NOTE | 2021-12-28 17:31 | PC.NURSE ---
Pt arrived to the floor at this time
--- NOTE | 2021-12-28 17:46 | PC.NURSE ---
Pt just arrived to the floor
[2021-12-28 18:35] LABS: Source, Body Fld. Pericardial Fluid
[2021-12-28 18:36] LABS: Appearance,Body Fld. Bloody; Volume,Body Fld. 240 mL
--- NOTE | 2021-12-28 18:54 | PC.NURSE ---
reports from [facility] are on the front of the chart
--- NOTE | 2021-12-28 18:57 | PC.NURSE ---
Dr Gautam called to check on patient, he was updated on patient condition at that time.
[2021-12-28 19:00] LABS: RBC,Body Fluid 25 cells/uL (< 10 X 10^3); TNC,Body Fluid 9899 cells/uL (< 1000)
[2021-12-28 20:39] LABS: Mononuclear WBCs,Body Fluid 0 %; Polynuclear WBC,Body Fluid 100 %
[2021-12-29] VITALS (31 sets, daily range): BP systolic 71–135; BP diastolic 40–92; PULSE 64–121; RESP 16–40; TEMP 37.2–38.6; O2SAT 76–96; BMI 28.8
--- NOTE | 2021-12-29 01:52 | PC.NURSE ---
pt is refusing ibuprofen and tylenol and other meds at this time, pt states that tylenol and ibuprofen does not help, and that other meds she is not taking at this time, dr oneal called regarding pt complaints of chest pain and lung pain when coughs, new order received for torodol iv, repeated and verified, torodol 30mg iv, every 8 hours as needed for pain.
--- NOTE | 2021-12-29 06:10 | PC.NURSE ---
0330 pt complained of pain when coughing, pt states when she coughs it makes her chest and lungs hurt, dr oneal called as patient is refusing tylenol and motrin at this time, new order recieved for morphine 2mg iv as needed for pain every 4hours repeated and verified. 0545 pt called out complaining of sob and unable to breath, noted oxygen was off, o2 sats 80% on room air, pt tachypneic, pt appears to be hyperventilated to prevent herself from coughing, air movement noted in lung sounds diminished, 02 placed back on and sats improved to 88%, torodol given for pain, respiratory called and venti mask placed to help improve hyperventilation, pt states she is afraid to take a deep breath for fear of coughing. will continue to monitor.
[2021-12-29 06:54] LABS: Lymphocytes # 1.4 K/mm3 (0.7-4.5); Mean Corpuscular HGB Conc 31.9 g/dL (31.8-35.4); Monocytes # 0.6 K/mm3 (0.1-1.0); Neutrophils % 88.6 % (37.0-80.0)
[2021-12-29 07:01] LABS: Chloride 104 mmol/L (98-107); Potassium 3.3 mmoL/L (3.5-5.1); Sodium 133 mmol/L (136-145)
[2021-12-29 07:02] LABS: Basophils # 0.1 K/mm3 (0-0.2); Basophils % 0.3 % (0.1-2.0); Eosinophils # 0.1 K/mm3 (0.0-0.4); Eosinophils % 0.7 % (0.1-12.0); Hematocrit 34.8 % (37.0-47.0); Hemoglobin 11.1 g/dL (12.2-16.2); Lymphocytes % 7.3 % (10-50); Mean Corpuscular Volume 87.6 fl (81-99); Mean Platelet Volume 8.7 fl (7.4-10.4); Monocytes % 3.1 % (1.7-9.3); Neutrophils # 16.6 K/mm3 (1.8-7.8); Platelet Count 435 K/mm3 (142-424); Red Blood Count 3.98 M/mm3 (4.20-5.40); Red Cell Distribution Width 14.1 % (11.5-17.5); White Blood Count 18.7 K/mm3 (4.8-10.8)
[2021-12-29 07:04] LABS: Anion Gap 9.3 mEq/L (5-15); Blood Urea Nitrogen 8 mg/dl (7-17); Calcium 7.5 mg/dl (8.4-10.2); Carbon Dioxide 23 mmol/L (22.0-30.0); Creatinine Clearance Estimated 114 mL/min (50-200); Estimated Glomerular Filt Rate 80 ml/min (>60); GFR (African American) 97 ML/MIN (>60); Glucose 92 mg/dl (74-100); MANUAL DIFFERENTIAL MANUAL DIFFERENTIAL (MANUAL DIFF)
--- NOTE | 2021-12-29 07:28 | HMH.HP ---
*Admission Date: 12/28/21 *Chief complaint: Shortness of breath *History of present illness: 41-year-old female sent to the emergency room yesterday from the office with increasing shortness of breath, chest discomfort when supine relieved with sitting up and leaning forward, and fevers to 102 at home. Patient has been to the office approximately 3 times this year for respiratory complaints and treated for bronchitis/pneumonia with various courses of antibiotics. Work-up in the emergency department revealed bilateral infiltrates as well as large pericardial effusion. White blood cell count was elevated. Cardiology was consulted from the emergency room and echocardiogram was performed which confirmed the presence of a large pericardial effusion. Patient underwent pericardiocentesis with aspiration of 400 mL of serosanguineous fluid by Dr. Gautam. Patient was admitted for treatment of pneumonia as well as pericardial effusion. Pericardial drain is remained in place overnight. Patient has a personal history of Mycobacterium avium complex pneumonia in 2019. MAC was diagnosed via bronchoscopy by Dr. Pinto. Patient completed treatment with 3 months of antibiotics under the supervision of Dr. Pinto in [place]. Patient subsequently in 2020 saw infectious disease specialist Dr. Grewal in [place]. There was question as to the legitimacy of her MAC diagnosis. Dr. Grewal restarted the patient on a course of treatment for MAC and arranged for further evaluation with VATS procedure. In September 2021 patient was hospitalized at [facility] and underwent VATS procedure with wedge resection of right middle lobe. All testing related to her biopsy was negative. Patient tells me after her VATS procedure and testing confirmed no infection or malignancy antibiotics were stopped. Records are on her chart regarding biopsy results. Patient has rheumatoid arthritis managed by Dr. Ryan at [facility]. Patient has been intolerant of leflunomide, hydroxychloroquine, sulfasalazine due to claims of recurrent infections while taking these medicines. Patient had an allergic reaction to Enbrel (etanercept). Patient has been given prednisone burst in the past but currently is not taking any prednisone. [facility] History I have reviewed the patient's past medical history: Yes Medical History: Reports:: Anxiety, Depression, Heart Murmur, Hyperlipidemia, Hypertension Denies:: Cancer, Diabetes Mellitus Type 1, Diabetes Mellitus Type 2, Internal Pacemaker, MRSA, Seizures *Have you ever received a pneumonia vaccine?: No *Have you received a flu vaccine this season?: Yes Other Medical History: Reports: Arthritis, Fibromyalgia, Hoarseness, Sinus Problems, Other. Denies: Blood Transfusion Reaction Comment:: Rheumatoid arthritis Laterality Cases: Right: Arthroscopy Knee, Bilateral: Myringotomy (Ear Tubes), Tonsillectomy, Other Other Surgeries: Yes: No Previous Surgery, Appendectomy, Cholecystectomy, Colonoscopy, Hysterectomy-Total, Hysterectomy-Partial, Other. No: Pacemaker Amputation: No Fractures: No - *Social History Smoking Status: Current every day smoker Tobacco Type: cigarettes # Packs/Day (cigarettes): 1 Alcohol Intake: never Alcohol Intake Frequency:: a few times a month Substance Use Type: denies use *Occupational Status:: unemployed Housing: house Household Members: spouse *Travel in the last 8 weeks: None - Psychiatric History Pschychiatric History:: Reports:: Anxiety, Depression Family Hx:: Hyperlipidemia, Hypertension, Thyroid Disorder Review of Systems - Constitutional Reports body ache(s), Reports chills, Reports lack of energy - Eyes Denies blurry vision, Denies change in vision - ENT Denies difficulty swallowing - *Cardiovascular Reports chest pain, Reports chest pain at rest (She), Reports shortness of breath, Reports shortness of breath with activity, Reports shortness of breath when lying down, Denies chest pain with activity, Denie
--- NOTE | 2021-12-29 07:30 | HMH.PHAVTE ---
[facility] Pharmacy VTE Monitoring - Patient Demographics Admission date: 12/29/21 Report Date: 12/29/21 Time: 07:30 Allergies/Adverse Reactions: Patient Allergies etanercept [From Enbrel] Allergy (Intermediate, Verified 04/13/21 13:47) Height: 1.63 m Weight: 76.459 kg Patient Problems: Current Active Problems Tobacco use (Acute) Rheumatoid arthritis (Acute) Abnormal CXR (chest x-ray) (Acute) Pericarditis (Acute) Pericardial effusion (Acute) Pneumonia (Acute) - VTE Risk Labs: VTE Related Lab Results Hgb 11.1 g/dL (12.2-16.2) L D 12/29/21 05:37 Hct 34.8 % (37.0-47.0) L 12/29/21 05:37 Plt Count 435 K/mm3 (142-424) H D 12/29/21 05:37 BUN 8 mg/dl (7-17) 12/29/21 05:37 Creatinine 0.80 mg/dl (0.52-1.04) D 12/29/21 05:37 Estimated Creat Clear 114 mL/min (50-200) 12/29/21 05:37 Was VTE Risk Assessment Performed: Yes VTE Score: 8 VTE Risk Level: Moderate Risk Clinical Trial Participant: No - Prophylaxis VTE Prophylaxis Ordered?: Yes Types of VTE Prophylaxis: TEDS Knee High
--- NOTE | 2021-12-29 07:39 | HMH.PHAINT ---
VERIFIED HOME MEDICATION LIST AFTER SEVERAL PT INTERVIEWS. ALL MEDS STOPPED BY [facility] IN SEPTEMBER
--- NOTE | 2021-12-29 09:42 | HMH.PULMCON ---
*Admission Date: 12/28/21 *Reason for consult:: Acute hypoxic respiratory failure *History of present illness: Ms. 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 Patient also carries a remote history of questionable pulmonary MAC infection status post 3 months of treatment however her most recent VATS lung biopsy from September 2021 was negative for any AFB or fungal elements. On this presentation found to have a large pericardial effusion that was drained. [facility] History Medical History: Reports:: Anxiety, Depression, Heart Murmur, Hyperlipidemia, Hypertension Denies:: Cancer, Diabetes Mellitus Type 1, Diabetes Mellitus Type 2, Internal Pacemaker, MRSA, Seizures *Have you ever received a pneumonia vaccine?: No *Have you received a flu vaccine this season?: Yes Other Medical History: Reports: Arthritis, Fibromyalgia, Hoarseness, Sinus Problems, Other. Denies: Blood Transfusion Reaction Laterality Cases: Right: Arthroscopy Knee, Bilateral: Myringotomy (Ear Tubes), Tonsillectomy, Other Other Surgeries: Yes: No Previous Surgery, Appendectomy, Cholecystectomy, Colonoscopy, Hysterectomy-Total, Hysterectomy-Partial, Other. No: Pacemaker Amputation: No Fractures: No - *Social History Smoking Status: Current every day smoker Tobacco Type: cigarettes # Packs/Day (cigarettes): 1 Alcohol Intake: never Alcohol Intake Frequency:: a few times a month Substance Use Type: denies use *Occupational Status:: unemployed Housing: house Household Members: spouse *Travel in the last 8 weeks: None - Psychiatric History Pschychiatric History:: Reports:: Anxiety, Depression Family Hx:: Hyperlipidemia, Hypertension, Thyroid Disorder ROS - Cons Reports anorexia, Reports body ache(s), Reports chills - Eyes Denies change in vision - ENT Denies nasal discharge, Denies nasal obstruction - Card Reports shortness of breath, Reports shortness of breath with activity, Reports leg swelling - Resp Respiratory: Reports shortness of breath, Reports chest congestion, Reports dyspnea, Reports dyspnea on exertion, Denies excessive phlegm production, Reports cough with sputum production - GI Gastrointestingal: Denies: abdominal pain - Psych Denies thoughts of hurting/killing others, Denies thoughts of hurting/killing yourself Meds Home Medications Medication Instructions Recorded Confirmed Type albuterol sulfate 90 mcg/actuation 2 inh INHALATION Q6 PRN #8.5 g 02/06/21 12/28/21 Rx aerosol inhaler Allergies Allergy/AdvReac Type Severity Reaction Status Date / Time etanercept [From Enbrel] Allergy Intermediate Verified 04/13/21 13:47 Exam - Constitutional Constitutional:: Present: no acute distress, comfortable - HENMT Exam HENMT: Present: normocephalic, atraumatic - Eye Exam Eyes:: Present: normal appearance both eyes and related structures - Neck Exam Neck:: Present: normal visual inspection - Respiratory Exam Respiratory:: Present: respiratory distress, crackles, wheezing. Absent: able to speak in complete sentences - Cardiovascular Exam Cardiac:: Present: S1, S2 - GI Exam GI:: Present: soft - Skin Exam Skin: Present: warm, no rash - Neurological Exam Neurological: Present: alert, awake, normal cognition - Extremities Exam Extremities: Present: no cyanosis, no clubbing, edema - Psychiatric Exam Psychiatric: Present: normal affect Internal Medicine - CN: Reslt - Labs CBC & Chem 7: 12/29/21 05:37 12/29/21 05:37 Labs: Short CBC 12/28/21 12/29/21 Range/Unit
[2021-12-29 10:30] LABS: Lymphocytes % 9 % (10-50); Neutrophils % 91 % (42-76); Total Cells Counted 100
[2021-12-29 10:33] LABS: Platelet Estimate Normal
[2021-12-29 10:36] LABS: C-Reactive Protein 319.1 mg/L (0-4)
--- NOTE | 2021-12-29 10:48 | CA_ITS ---
APPROVED REPORT EXAM: Comprehensive 2D, Doppler, and color-flow Echocardiogram Silver Service Waiter: Stacy Sidhu CRT Ht: 5 ft 4 in Wt: 168lbs BSA: 1.82 BP: 000/00 mmHg Indications: F/U PERICARIOCENTESIS 12/28/21 Conclusion 1. Limited echocardiogram was obtained post pericardiocentesis, shows normal left ventricular size and function ejection fraction 55% with no obvious regional wall motion abnormality in the obtained views. 2. There is no significant pericardial effusion noted, however organized echodensity seen in the pericardial space. Electronically signed by : Johann Fountain MD 12/29/2021 13:18:27
--- NOTE | 2021-12-29 10:49 | HMH.PNCARD ---
Subjective Date: 12/29/21 Time: 10:49 Principal diagnosis: Pericardial effusion with cardiac tamponade Interval history: 41-year-old white female in bed with oxygen by nonrebreather. Patient is breathing in a shallow fashion due to discomfort with age breath. The pericardial drain has only given an additional 100 mL overnight since the initial 400-500 mL in the ER yesterday. Exam Vital signs and Labs for Last 24 Hours: Temp Pulse Resp BP Pulse Ox 98.9 F 103 H 16 113/58 L 95 12/29/21 07:50 12/29/21 07:50 12/29/21 07:50 12/29/21 09:50 12/29/21 07:50 Laboratory Results - last 24 hr 12/28/21 12:15: WBC 31.9 H*, RBC 4.91, Hgb 13.8, Hct 42.2, MCV 85.9, MCH 28.0, MCHC 32.6, RDW 14.0, Plt Count 603 H, MPV 8.7, Neut % (Auto) 87.1 H, Lymph % (Auto) 7.2 L, [place] % (Auto) 4.6, Eos % (Auto) 0.8, Baso % (Auto) 0.4, Neut # (Auto) 27.8 H, Lymph # (Auto) 2.3, [place] # (Auto) 1.5 H, Eos # (Auto) 0.2, Baso # (Auto) 0.1, Total Counted 100, Neutrophils % (Manual) 85 H, Lymphocytes % (Manual) 12, Monocytes % (Manual) 3, Platelet Estimate Marked increase, RBC Morphology Normal 12/28/21 12:15: D-Dimer 1.58 H 12/28/21 12:15: Sodium 139, Potassium 3.4 L, Chloride 102, Carbon Dioxide 24, Anion Gap 16.4 H, BUN 10, Creatinine 1.40 H, Estimated Creat Clear 56, Estimated GFR 42 L, Est GFR ( Amer) 51 L, Glucose 114 H, Calcium 8.9, Troponin I 0.02 12/28/21 12:15: Lactate 2.4 H 12/28/21 12:15: NT-Pro-B Natriuret Pep 1170 H 12/28/21 12:40: SARS-CoV-2 (PCR) Not detected, Influenza A Untype (PCR) Not detected, Influenza Type B (PCR) Not detected 12/28/21 16:50: Fluid Source Pericardial fluid, Fluid Volume 240, Fluid Appearance Bloody, Fluid RBC (Auto) 25, Fld Tot Nucleated Cell 9899, Fld Polynuclear WBCs % 100, Fld Mononuclear WBCs % 0 12/28/21 16:57: Lactate 1.0 12/29/21 05:37: WBC 18.7 H D, RBC 3.98 L, Hgb 11.1 L D, Hct 34.8 L, MCV 87.6, MCH 28.0, MCHC 31.9, RDW 14.1, Plt Count 435 H D, MPV 8.7, Neut % (Auto) 88.6 H, Lymph % (Auto) 7.3 L, [place] % (Auto) 3.1, Eos % (Auto) 0.7, Baso % (Auto) 0.3, Neut # (Auto) 16.6 H, Lymph # (Auto) 1.4, [place] # (Auto) 0.6, Eos # (Auto) 0.1, Baso # (Auto) 0.1, Total Counted 100, Neutrophils % (Manual) 91 H, Lymphocytes % (Manual) 9 L, Platelet Estimate Normal 12/29/21 05:37: Sodium 133 L, Potassium 3.3 L, Chloride 104, Carbon Dioxide 23, Anion Gap 9.3, BUN 8, Creatinine 0.80 D, Estimated Creat Clear 114, Estimated GFR 80, Est GFR ( Amer) 97 D, Glucose 92, Calcium 7.5 L 12/29/21 05:37: C-Reactive Protein 319.1 H I & O for Last 24 hours: Intake & Output 12/26/21 12/27/21 12/28/21 12/29/21 11:59 11:59 11:59 11:59 Intake Total 0 / 0 Output Total 200 / 200 Balance -200 / -200 Weight 168 lb 9.012 oz Microbiology Reports for the Last 24 Hours: Microbiology 12/28/21 16:10 Pericardial Fluid Gram Stain - Final - *Routine Respiratory Exam Present: CTA bilaterally, diminished air movement - *Routine Cardiovascular Exam Present: RRR, rubs Progress Note: A&P (1) Pericardial effusion Status: Acute (2) Pericarditis Status: Acute (3) Abnormal CXR (chest x-ray) Status: Acute (4) Rheumatoid arthritis Status: Acute (5) Tobacco use Status: Acute (6) Pneumonia Status: Acute Assessment and Plan for All Diagnoses:: Limited echo this a.m. to assess residual pericardial fluid shows fluid has resolved but still with organized density in the pericardial space. Will discuss with Dr. Gautam regarding timing of drain removal.
[2021-12-29 10:55] LABS: Lactate Dehydrogenase 281 U/L (313-618)
--- NOTE | 2021-12-29 12:54 | PC.NURSE ---
Pt down for bronch at 1250.
--- NOTE | 2021-12-29 12:56 | P.PN_ITS ---
[facility] Anesthesia Checklist - Patient Identification Patient Identification: Arm Band - Structural Data Admitted From: Inpatient Planned Operative Procedure/s: Bronchoscopy Consent for Planned Operative Procedure(s) Verified: Yes - NPO Status Verified Time NPO: 00:00 - Additional verifications Anesthesia Reactions: No Hx Blood Transfusions: No Blood Transfusion Reaction: No - Airway Assessment C-Spine Mobility Assessed: Yes TMJ Mobility Assessed: Yes Dentition: Edentulous - Neurological Assessment Level of Consciousness: Awake Hx Seizures: No Numbness or tingling in extremities: No - Anesthesia Plan Anesthesia Risk discussed: Yes Anesthesia Plan: Verified ASA Class: III Anesthesia Type: General [facility] History I have reviewed the patient's past medical history: Yes Medical History: Reports:: Anxiety, Depression, Heart Murmur, Hyperlipidemia, Hypertension Denies:: Cancer, Diabetes Mellitus Type 1, Diabetes Mellitus Type 2, Internal Pacemaker, MRSA, Seizures *Have you ever received a pneumonia vaccine?: No *Have you received a flu vaccine this season?: Yes Other Medical History: Reports: Arthritis, Fibromyalgia, Hoarseness, Sinus Problems, Other (pericardial effusion). Denies: Blood Transfusion Reaction Anesthesia experience/problems:: None Laterality Cases: Right: Arthroscopy Knee, Bilateral: Myringotomy (Ear Tubes), Tonsillectomy, Other Other Surgeries: Yes: No Previous Surgery, Appendectomy, Cholecystectomy, Colonoscopy, Hysterectomy-Total, Hysterectomy-Partial, Other. No: Pacemaker Amputation: No Fractures: No - *Social History Smoking Status: Current every day smoker Tobacco Type: cigarettes # Packs/Day (cigarettes): 1 Alcohol Intake: never Alcohol Intake Frequency:: a few times a month Substance Use Type: denies use *Occupational Status:: unemployed Housing: house Household Members: spouse *Travel in the last 8 weeks: None - Psychiatric History Pschychiatric History:: Reports:: Anxiety, Depression Family Hx:: Hyperlipidemia, Hypertension, Thyroid Disorder
--- NOTE | 2021-12-29 13:42 | XR_ITS ---
FINAL REPORT TECHNIQUE: Fluoroscopy was provided for the operating services. CLINICAL HISTORY: LEFT BRONCH 2.1 min fluoro time 43.88 mGy OR case FINDINGS: A single spot film was obtained. 2.1 minutes of fluoroscopy time was utilized. IMPRESSION: 2.1 minutes of fluoroscopy time. Reviewed, Interpreted and Dictated by Isauro Mckeon MD Transcribed by Bonilla Arambula Authenticated by Isauro Mckeon MD on 12/29/2021 02:36:22 PM [facility]
--- NOTE | 2021-12-29 13:59 | P.PN_ITS ---
[facility] [place] Anesthesia Record Part I Intake, IV Amount: 200 Estimated blood loss (mL): 0 Urine output (mL): 0 Blood Pressure: 118/92 SaO2: 90 Pulse Rate: 117 Respiratory Rate: 30 Temperature: 101.5 F Patient is:: Awake Stable to PACU at:: 13:45
--- NOTE | 2021-12-29 14:56 | SUR.PHASEI ---
1400- respiratory in at bedside at this time to give duoneb treatment ordered by jyaashree. 1414- detailed report called to nicky abdullahi on the floor at this time. 1416- pt left in stable condition with nicky abdullahi on medsur floor by nicky pink and nicky esteves
[2021-12-29 16:35] LABS: Basophils % 0.1 % (0.1-2.0); Eosinophils # 0.2 K/mm3 (0.0-0.4); Eosinophils % 1.8 % (0.1-12.0); Hematocrit 29.4 % (37.0-47.0); Lymphocytes # 1.4 K/mm3 (0.7-4.5); Lymphocytes % 11.5 % (10-50); Mean Corpuscular HGB Conc 31.4 g/dL (31.8-35.4); Mean Corpuscular Hemoglobin 27.4 pg (27.0-31.2); Mean Corpuscular Volume 87.2 fl (81-99); Mean Platelet Volume 8.7 fl (7.4-10.4); Monocytes # 0.4 K/mm3 (0.1-1.0); Monocytes % 2.9 % (1.7-9.3); Neutrophils % 83.6 % (37.0-80.0); Platelet Count 366 K/mm3 (142-424); Red Blood Count 3.37 M/mm3 (4.20-5.40); Red Cell Distribution Width 14.1 % (11.5-17.5)
[2021-12-29 16:36] LABS: Hemoglobin 9.2 g/dL (12.2-16.2)
[2021-12-29 16:37] LABS: Anion Gap 6.6 mEq/L (5-15); Blood Urea Nitrogen 9 mg/dl (7-17); Calcium 7.7 mg/dl (8.4-10.2); Carbon Dioxide 26 mmol/L (22.0-30.0); Chloride 107 mmol/L (98-107); Creatinine Clearance Estimated 114 mL/min (50-200); Estimated Glomerular Filt Rate 80 ml/min (>60); GFR (African American) 97 ML/MIN (>60); Glucose 98 mg/dl (74-100); Potassium 3.6 mmoL/L (3.5-5.1); Sodium 136 mmol/L (136-145)
--- NOTE | 2021-12-29 16:45 | HMH.BRONCH ---
- Procedure: Date: 12/29/21 Patient Date of :: 1980 Procedure Performed:: Bronchoscopy with airway examination, alveolar lavage and transbronchial biopsy. Indications:: Nonresolving pneumonia, pneumonia in immunosuppressed Performing Provider:: Gini Whitney MD Referring Provider:: Dr. Ireland Sedation:: General anesthesia Procedure:: Bronchoscopy with airway examination, alveolar lavage and transbronchial biopsy: A clean diagnostic bronchoscopy and airways were examined up to subsegmental bronchi copious amount of mucoid secretions were noted in both lungs that were suctioned. No obvious evidence of hemoptysis noted no evidence of prior hemoptysis or blood clots noted. Bronchoalveolar lavage was performed in the left lower lobe with a total of instillation of 60 cc normal saline with return of 20 cc fluid that was sent for BAL cell count differential, AFB fungal and bacterial Gram stain culture. BAL fluid was also sent for cytopathology to be evaluated for PCP. Transbronchial biopsy was also performed in the left lower lobe, total of 7 biopsies were performed, 5 were sent in formalin for cytopathological examination #1 each was sent in normal saline for bacterial, AFB fungal stain and culture. Repeat hemostasis was obtained after the procedure. Patient tolerated the procedure well. Findings:: Please see the procedure note Recommendations:: Please see the procedure note and progress note from today Complications:: None Estimated blood obtained (mL): 15
--- NOTE | 2021-12-29 18:21 | PC.NURSE ---
When pt came back from pacu/bronch, breathing was labored with accessory muscle use. Lung sounds wheezes with crackles and breathing [address] Ireland notified, and requested to call Dr. Whitney. Dr. Whitney came and rounded on pt and ordered pt to be step down, 40 IV lasix x 1, and to d/c IVF's. Dr. Ireland gave an order for a indwelling cath. Pt was moved to step down at approx 1645. Report given to Arun Obregon RN. Pericardial drain was removed at bedside per Dr. Gautam prior to pt moving. Site looks well, with no issues.
[2021-12-30] VITALS (19 sets, daily range): BP systolic 89–150; BP diastolic 36–78; PULSE 90–117; RESP 24–46; TEMP 36.3–37.3; O2SAT 89–100; BMI 29.5
[2021-12-30 04:07] LABS: ABG Base Excess -4.1 mmol/L (-2.4-2.3); ABG Oxygen Saturation 91 % (90-100); ABG PCO2 43.5 mmhg (35.0-45.0); ABG PH 7.32 mmol/L (7.35-7.45); ABG PO2 62.2 mmhg (80-100); ABG TCO2 23.3 mmhg (23-27)
[2021-12-30 04:08] LABS: Allen's Test Acceptable; Oxygen 40 %; Source Left Radial
[2021-12-30 05:43] LABS: MANUAL DIFFERENTIAL MANUAL DIFFERENTIAL (MANUAL DIFF)
[2021-12-30 05:49] LABS: Basophils % 0.2 % (0.1-2.0); Eosinophils # 0.3 K/mm3 (0.0-0.4); Eosinophils % 3.4 % (0.1-12.0); Hematocrit 31.6 % (37.0-47.0); Hemoglobin 9.9 g/dL (12.2-16.2); Lymphocytes # 1.5 K/mm3 (0.7-4.5); Lymphocytes % 15.3 % (10-50); Mean Corpuscular HGB Conc 31.4 g/dL (31.8-35.4); Mean Corpuscular Hemoglobin 27.7 pg (27.0-31.2); Mean Corpuscular Volume 88.4 fl (81-99); Mean Platelet Volume 8.3 fl (7.4-10.4); Monocytes # 0.3 K/mm3 (0.1-1.0); Monocytes % 3.1 % (1.7-9.3); Neutrophils # 7.7 K/mm3 (1.8-7.8); Platelet Count 373 K/mm3 (142-424); Red Blood Count 3.58 M/mm3 (4.20-5.40); Red Cell Distribution Width 14.1 % (11.5-17.5); White Blood Count 9.9 K/mm3 (4.8-10.8)
--- NOTE | 2021-12-30 06:09 | PC.NURSE ---
pt audibly wheezing, coughing continuously and beginning to spit up pink tinged secretions; notified RT and RT giving neb treatment
[2021-12-30 06:10] LABS: Chloride 106 mmol/L (98-107); Potassium 3.4 mmoL/L (3.5-5.1); Sodium 136 mmol/L (136-145)
[2021-12-30 06:13] LABS: Anion Gap 7.4 mEq/L (5-15); Blood Urea Nitrogen 10 mg/dl (7-17); Calcium 7.5 mg/dl (8.4-10.2); Carbon Dioxide 26 mmol/L (22.0-30.0); Creatinine Clearance Estimated 116 mL/min (50-200); Estimated Glomerular Filt Rate 80 ml/min (>60); GFR (African American) 97 ML/MIN (>60); Glucose 93 mg/dl (74-100)
[2021-12-30 06:39] LABS: Eosinophils % 3 % (0-3); Hypochromasia 1+; Lymphocytes % 10 % (10-50); Neutrophils % 79 % (42-76); Platelet Estimate Normal; Total Cells Counted 100
--- NOTE | 2021-12-30 07:43 | PC.NURSE ---
pt given a cup for sputum sample at this time.
--- NOTE | 2021-12-30 08:17 | HMH.ACPN2 ---
Internal Medicine - PN: Subj *Date: 12/30/21 *Time: 08:17 Interval history: Patient was moved to stepdown unit after bronchoscopy yesterday due to increased work of breathing. Patient was given IV Lasix x1. Overnight she has maintained O2 sats in the low 90s on a Ventimask. Patient reports chest pain. She has had some mild hemoptysis. No fevers overnight. Exam Vital signs and Labs for Last 24 Hours: Temp Pulse Resp BP Pulse Ox 98.3 F 95 H 32 H 103/36 L 93 L 12/30/21 08:00 12/30/21 06:14 12/30/21 06:00 12/30/21 06:00 12/30/21 06:14 Laboratory Results - last 24 hr 12/29/21 05:37: Total Counted 100, Neutrophils % (Manual) 91 H, Lymphocytes % (Manual) 9 L, Platelet Estimate Normal 12/29/21 05:37: Lactate Dehydrogenase 281 L, C-Reactive Protein 319.1 H 12/29/21 16:00: Specimen Source Left radial, O2 % 40, ABG pH 7.32 L, ABG pCO2 43.5, ABG pO2 62.2 L, ABG HCO3 22.0, ABG Total CO2 23.3, ABG O2 Saturation 91, ABG Base Excess -4.1 L, Test Acceptable 12/29/21 16:15: WBC 12.0 H D, RBC 3.37 L, Hgb 9.2 L D, Hct 29.4 L, MCV 87.2, MCH 27.4, MCHC 31.4 L, RDW 14.1, Plt Count 366, MPV 8.7, Neut % (Auto) 83.6 H, Lymph % (Auto) 11.5, [place] % (Auto) 2.9, Eos % (Auto) 1.8, Baso % (Auto) 0.1, Neut # (Auto) 10.0 H, Lymph # (Auto) 1.4, [place] # (Auto) 0.4, Eos # (Auto) 0.2, Baso # (Auto) 0.0 12/29/21 16:15: Sodium 136, Potassium 3.6, Chloride 107, Carbon Dioxide 26, Anion Gap 6.6, BUN 9, Creatinine 0.80, Estimated Creat Clear 114, Estimated GFR 80, Est GFR ( Amer) 97, Glucose 98, Calcium 7.7 L 12/30/21 05:23: WBC 9.9, RBC 3.58 L, Hgb 9.9 L, Hct 31.6 L, MCV 88.4, MCH 27.7, MCHC 31.4 L, RDW 14.1, Plt Count 373, MPV 8.3, Neut % (Auto) 78.0, Lymph % (Auto) 15.3, [place] % (Auto) 3.1, Eos % (Auto) 3.4, Baso % (Auto) 0.2, Neut # (Auto) 7.7, Lymph # (Auto) 1.5, [place] # (Auto) 0.3, Eos # (Auto) 0.3, Baso # (Auto) 0.0, Total Counted 100, Neutrophils % (Manual) 79 H, Band Neutrophils % 8.0, Lymphocytes % (Manual) 10, Eosinophils % (Manual) 3, Platelet Estimate Normal, Hypochromasia 1+ 12/30/21 05:23: Sodium 136, Potassium 3.4 L, Chloride 106, Carbon Dioxide 26, Anion Gap 7.4, BUN 10, Creatinine 0.80, Estimated Creat Clear 116, Estimated GFR 80, Est GFR ( Amer) 97, Glucose 93, Calcium 7.5 L I & O for Last 24 hours: Intake & Output 12/27/21 12/28/21 12/29/21 12/30/21 11:59 11:59 11:59 11:59 Intake Total 0 / 0 320 / 320 Output Total 200 / 200 825 / 825 Balance -200 / -200 -505 / -505 Weight 168 lb 9.012 oz 172 lb 2 oz Microbiology Reports for the Last 24 Hours: Microbiology 12/28/21 16:10 Pericardial Fluid Gram Stain - Final 12/28/21 16:10 Pericardial Fluid Body Fluid Culture - Preliminary NO GROWTH AFTER 24 HOURS 12/29/21 13:19 Bronchial Washings - Left Lower Lobe Gram Stain - Final Narrative: Patient is ill-appearing. Increased work of breathing and increased respiratory rate. Lungs have rales anteriorly in both lungs and posteriorly persistent rales with diminished breath sounds at the bases. Heart has a rapid rate and rhythm. Abdomen is soft. Extremities are warm to touch. Assessment and Plan (1) Pneumonia Status: Acute Qualifiers: Pneumonia type: due to unspecified organism Laterality: bilateral Lung location: lower lobe of lung Qualified Code(s): J18.9 - Pneumonia, unspecified organism Category: Medical Code(s): J18.9 - Pneumonia, unspecified organism (2) Pericardial effusion Status: Acute Category: Medical Code(s): I31.3 - Pericardial effusion (noninflammatory) (3) Pericarditis Status: Acute Qualifiers: Pericarditis type: associated with other disease Chronicity: acute Qualified Code(s): I30.9 - Acute pericarditis, unspecified Category: Medical Code(s): I31.9 - Disease of pericardium, unspecified (4) Abnormal CXR (chest x-ray) Status: Acute Category: Medical Code(s): R93.89 - Abnormal findings on diagnostic imaging o
[2021-12-30 08:51] LABS: Magnesium 1.9 mg/dl (1.6-2.3)
--- NOTE | 2021-12-30 09:18 | PC.NURSE ---
received call from Dr. Whitney with new orders: give Lasix 40mg IV x 1 dose and CXR now. Lasix order faxed to pharmacy and CXR order entered on his behalf.
--- NOTE | 2021-12-30 09:19 | XR_ITS ---
PROCEDURE INFORMATION: Exam: XR Chest Exam date and time: 12/30/2021 9:19 AM Age: 41 years old Clinical indication: Shortness of breath; Additional info: Resp distress/failure TECHNIQUE: Imaging protocol: XR of the chest. Views: 1 view. COMPARISON: SD XR CHEST AP 12/29/2021 1:30 PM FINDINGS: Lungs: Bilateral interstitial and airspace opacities. Pleural spaces: Unremarkable. No pleural effusion. No pneumothorax. Heart/Mediastinum: Unremarkable. No cardiomegaly. Bones/joints: Unremarkable. IMPRESSION: Bilateral interstitial and airspace opacities may reflect multilobar pneumonia, possibly with some component of pulmonary edema.
[2021-12-30 10:12] LABS: Albumin, Body Fluid 2.9 g/dL (Not Estab.); Glucose, Body Fluid 45 mg/dL (.)
--- NOTE | 2021-12-30 18:15 | PC.NURSE ---
pt in resp distress with RR 40-50s and panicking that she can not catch her breath. 50%/15L Venti mask switched to NRB mask and Morphine 2mg IV given for air hunger. Pt checked in 10min and she reports that she is breathing better but RR continues in 30-40s.
[2021-12-31] VITALS (19 sets, daily range): BP systolic 86–151; BP diastolic 32–70; PULSE 79–111; RESP 21–49; TEMP 36.4–37.1; O2SAT 92–100; BMI 29.5
[2021-12-31 06:00] LABS: MANUAL DIFFERENTIAL MANUAL DIFFERENTIAL (MANUAL DIFF)
[2021-12-31 06:05] LABS: Basophils % 0.1 % (0.1-2.0); Eosinophils # 0.4 K/mm3 (0.0-0.4); Eosinophils % 4.4 % (0.1-12.0); Hematocrit 28.6 % (37.0-47.0); Lymphocytes # 0.8 K/mm3 (0.7-4.5); Lymphocytes % 9.6 % (10-50); Mean Corpuscular HGB Conc 31.1 g/dL (31.8-35.4); Mean Corpuscular Hemoglobin 27.7 pg (27.0-31.2); Mean Corpuscular Volume 88.8 fl (81-99); Mean Platelet Volume 8.1 fl (7.4-10.4); Monocytes # 0.4 K/mm3 (0.1-1.0); Monocytes % 4.1 % (1.7-9.3); Neutrophils # 6.8 K/mm3 (1.8-7.8); Neutrophils % 81.7 % (37.0-80.0); Platelet Count 412 K/mm3 (142-424); Red Blood Count 3.22 M/mm3 (4.20-5.40); Red Cell Distribution Width 14.1 % (11.5-17.5); White Blood Count 8.4 K/mm3 (4.8-10.8)
[2021-12-31 06:14] LABS: Chloride 102 mmol/L (98-107); Sodium 134 mmol/L (136-145)
[2021-12-31 06:15] LABS: Potassium 3.8 mmoL/L (3.5-5.1)
[2021-12-31 06:18] LABS: Anion Gap 7.8 mEq/L (5-15); Blood Urea Nitrogen 7 mg/dl (7-17); Calcium 7.7 mg/dl (8.4-10.2); Carbon Dioxide 28 mmol/L (22.0-30.0); Creatinine Clearance Estimated 133 mL/min (50-200); Estimated Glomerular Filt Rate 93 ml/min (>60); GFR (African American) 113 ML/MIN (>60); Glucose 111 mg/dl (74-100)
[2021-12-31 06:45] LABS: Eosinophils % 2 % (0-3); Lymphocytes % 6 % (10-50); Monocytes % 1 % (2-9); Neutrophils % 85 % (42-76); Platelet Estimate Slight Increase; Rouleaux 1+; Total Cells Counted 100
[2021-12-31 07:00] LABS: Hemoglobin 8.9 g/dL (12.2-16.2)
--- NOTE | 2021-12-31 08:08 | XR_ITS ---
PROCEDURE INFORMATION: Exam: XR Chest Exam date and time: 12/31/2021 8:08 AM Age: 41 years old Clinical indication: Shortness of breath; Additional info: Pneumonia progress, pleural effusions TECHNIQUE: Imaging protocol: XR of the chest. Views: 1 view. COMPARISON: CR XR CHEST PORTABLE 12/30/2021 10:46 AM FINDINGS: Lungs: Similar patchy bilateral airspace opacities. Pleural spaces: Unremarkable. No pleural effusion. No pneumothorax. Heart/Mediastinum: Unremarkable. No cardiomegaly. Bones/joints: Unremarkable. IMPRESSION: No substantial interval change. Similar patchy bilateral airspace opacities.
--- NOTE | 2021-12-31 08:08 | HMH.ACPN2 ---
Internal Medicine - PN: Subj *Date: 12/31/21 *Time: 08:08 Interval history: Patient developed worsening dyspnea yesterday and was placed on nonrebreather with FiO2 of 100%. This helped relieve dyspnea as well as anxiety. Patient has improvement in pain and dyspnea with administration of morphine which she is requesting more frequently than Toradol. Patient complains of a headache this morning. She did receive IV Lasix yesterday with 1500 mL output Exam Vital signs and Labs for Last 24 Hours: Temp Pulse Resp BP Pulse Ox 98.7 F 106 H 35 H 111/69 100 12/31/21 08:00 12/31/21 06:50 12/31/21 06:00 12/31/21 06:00 12/31/21 06:50 Laboratory Results - last 24 hr 12/28/21 16:50: Fluid Glucose 45 12/28/21 16:50: Fluid Albumin 2.9 12/29/21 05:37: Cortisol 13.7 12/30/21 05:23: Magnesium 1.9 12/31/21 05:09: WBC 8.4, RBC 3.22 L, Hgb 8.9 L D, Hct 28.6 L, MCV 88.8, MCH 27.7, MCHC 31.1 L, RDW 14.1, Plt Count 412, MPV 8.1, Neut % (Auto) 81.7 H, Lymph % (Auto) 9.6 L, [place] % (Auto) 4.1, Eos % (Auto) 4.4, Baso % (Auto) 0.1, Neut # (Auto) 6.8, Lymph # (Auto) 0.8, [place] # (Auto) 0.4, Eos # (Auto) 0.4, Baso # (Auto) 0.0, Total Counted 100, Neutrophils % (Manual) 85 H, Band Neutrophils % 6.0, Lymphocytes % (Manual) 6 L, Monocytes % (Manual) 1 L, Eosinophils % (Manual) 2, Platelet Estimate Slight increase, [place] 1+ 12/31/21 05:09: Sodium 134 L, Potassium 3.8, Chloride 102, Carbon Dioxide 28, Anion Gap 7.8, BUN 7 D, Creatinine 0.70, Estimated Creat Clear 133, Estimated GFR 93, Est GFR ( Amer) 113, Glucose 111 H, Calcium 7.7 L I & O for Last 24 hours: Intake & Output 12/28/21 12/29/21 12/30/21 12/31/21 11:59 11:59 11:59 11:59 Intake Total 0 / 0 320 / 320 590 / 590 Output Total 200 / 200 825 / 825 2325 / 2325 Balance -200 / -200 -505 / -505 -1735 / -1735 Weight 168 lb 9.012 oz 172 lb 2 oz 172 lb 14.4 oz Microbiology Reports for the Last 24 Hours: Microbiology 12/28/21 16:10 Pericardial Fluid Gram Stain - Final 12/28/21 16:10 Pericardial Fluid Body Fluid Culture - Preliminary 12/29/21 08:43 Sputum - Expectorated Sputum Gram Stain - Final 12/29/21 13:19 Transbronchial Biopsy - Left Lower Lobe Gram Stain - Final 12/29/21 13:19 Transbronchial Biopsy - Left Lower Lobe Surgical Biopsy Culture - Preliminary NO GROWTH AFTER 24 HOURS 12/28/21 12:45 Blood Blood Culture - Preliminary NO GROWTH AFTER 48 HOURS 12/28/21 12:45 Blood Blood Culture - Preliminary NO GROWTH AFTER 48 HOURS Narrative: Patient remains tachypneic with poor inspiratory effort secondary to pain. Color is better today. Lungs have anterior rales and crackles. Posteriorly at the bases breath sounds are diminished with distant rales. Heart is tachycardic. Abdomen is soft. Patient has no edema of the lower extremities BAL Gram stain is showing gram-positive cocci in clusters Expectorated sputum sputum Gram stain showing gram-positive cocci in chains, budding yeast, diphtheroids Pericardial fluid Gram stain shows no organisms Assessment and Plan (1) Pneumonia Status: Acute Qualifiers: Pneumonia type: due to unspecified organism Laterality: bilateral Lung location: lower lobe of lung Qualified Code(s): J18.9 - Pneumonia, unspecified organism Category: Medical Code(s): J18.9 - Pneumonia, unspecified organism (2) Pericardial effusion Status: Acute Category: Medical Code(s): I31.3 - Pericardial effusion (noninflammatory) (3) Pericarditis Status: Acute Qualifiers: Pericarditis type: associated with other disease Chronicity: acute Qualified Code(s): I30.9 - Acute pericarditis, unspecified Category: Medical Code(s): I31.9 - Disease of pericardium, unspecified (4) Abnormal CXR (chest x-ray) Status: Acute Category: Medical Code(s): R93.89 - Abnormal findings on diagnostic imaging of other specifie
--- NOTE | 2021-12-31 14:19 | PC.NURSE ---
O2 sat has remained at 98-100% on NRB. NRB switched to 50% venti mask at this time. RR has been in the 20-30s after Ketorolac being scheduled and Morphine given between doses. No longer labored. Reports that she is less SOA and is feeling better overall.
[2021-12-31 17:27] LABS: Vancomycin,Peak 27.3 ug/ml (11-39)
--- NOTE | 2021-12-31 17:40 | PC.NURSE ---
O2 sat hanging around 97-99% on venti mask 50%/15L. Decreased flow to 35%/9L. RR continues in the 20s.
--- NOTE | 2021-12-31 23:00 | ECG_ITS ---
APPROVED REPORT Exam: Resting ECG HR:82 bpm ECG Measurements Heart Rate 82 AXES VT 153 P 36 QRSd 102 QRS -1 QT 394 T 60 QTc 433 Conclusion SINUS RHYTHM POSSIBLE LEFT ATRIAL ENLARGEMENT [-0.1mV P-WAVE IN V1/V2] ST DEVIATION AND MODERATE T-WAVE ABNORMALITY, CONSIDER ANTERIOR ISCHEMIA [-0.1+ mV T-WAVE IN V3/V4] ABNORMAL ECG UNCONFIRMED REPORT Electronically signed by : Adam Cleveland MD 01/05/2022 16:14:26
[2022-01-01] VITALS (21 sets, daily range): BP systolic 83–126; BP diastolic 38–77; PULSE 65–119; RESP 15–26; TEMP 36.4–37.7; O2SAT 91–99; BMI 28.8
--- NOTE | 2022-01-01 | IR_ITS ---
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 COMPLICATIONS None Estimated Blood Loss: Less than 10 ML TECHNIQUE One percent lidocaine was used to anesthetize the right anterior aspect of the neck. A child welfare social worker needle was used to identify the right internal jugular vein. Following this a larger cannulation needle was used to cannulate the right internal jugular vein and a wire was passed into the vein. Prior to the 7 [place] sheath being inserted the wire was confirmed under fluoroscopic guidance to be in the inferior vena cava. A 7 [place] sheath was introduced and a [place]-Sloan catheter was floated using hemodynamic waveforms in the pulmonary artery, right ventricle , and right atrium. Saturations were obtained in the pulmonary artery and the right atrium. At the end of the procedure the patient was transferred to the postop holding area in stable condition for sheath removal. 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 Recommend transferring patient to [facility] this admission for further evaluation. 2. CAT scan of the chest today will be obtained to specifically evaluate for pericardial thickness. The absence of pericardial thickness does not rule out chronic effusive constrictive pericarditis 3. Today's echocardiogram demonstrates ventricular interdependence with mild pericardial effusion 4. [facility] has been contacted and are currently arranging transfer to [facility] during this admission Electronically signed by : Brandon Gautam MD 01/01/2022 14:29:18
[2022-01-01 00:48] LABS: Vancomycin,Trough 13.1 ug/mL (5.0-10.0)
[2022-01-01 06:05] LABS: MANUAL DIFFERENTIAL MANUAL DIFFERENTIAL (MANUAL DIFF)
[2022-01-01 06:07] LABS: Basophils % 0.1 % (0.1-2.0); Eosinophils % 0.1 % (0.1-12.0); Hemoglobin 9.3 g/dL (12.2-16.2); Lymphocytes # 0.7 K/mm3 (0.7-4.5); Lymphocytes % 7.2 % (10-50); Mean Corpuscular HGB Conc 32.7 g/dL (31.8-35.4); Mean Corpuscular Hemoglobin 28.4 pg (27.0-31.2); Mean Corpuscular Volume 87.1 fl (81-99); Mean Platelet Volume 8.1 fl (7.4-10.4); Monocytes # 0.2 K/mm3 (0.1-1.0); Monocytes % 2.4 % (1.7-9.3); Neutrophils # 9.1 K/mm3 (1.8-7.8); Neutrophils % 90.2 % (37.0-80.0); Platelet Count 433 K/mm3 (142-424); Red Blood Count 3.27 M/mm3 (4.20-5.40); Red Cell Distribution Width 13.9 % (11.5-17.5); White Blood Count 10.1 K/mm3 (4.8-10.8)
[2022-01-01 06:08] LABS: Hematocrit 28.5 % (37.0-47.0)
[2022-01-01 06:24] LABS: Lymphocytes % 11 % (10-50); Monocytes % 1 % (2-9); Neutrophils % 83 % (42-76); Platelet Estimate Slight Increase; RBC Morphology Normal; Rouleaux 2+; Total Cells Counted 100
[2022-01-01 06:32] LABS: Chloride 100 mmol/L (98-107); Potassium 3.5 mmoL/L (3.5-5.1); Sodium 135 mmol/L (136-145)
[2022-01-01 06:35] LABS: Blood Urea Nitrogen 13 mg/dl (7-17); Creatinine Clearance Estimated 130 mL/min (50-200); Estimated Glomerular Filt Rate 93 ml/min (>60); GFR (African American) 113 ML/MIN (>60)
[2022-01-01 06:36] LABS: Anion Gap 9.5 mEq/L (5-15); Calcium 8.4 mg/dl (8.4-10.2); Carbon Dioxide 29 mmol/L (22.0-30.0); Glucose 123 mg/dl (74-100)
[2022-01-01 06:41] LABS: C-Reactive Protein 155.6 mg/L (0-4)
--- NOTE | 2022-01-01 07:11 | HMH.ACPN2 ---
Internal Medicine - PN: Subj *Date: 01/01/22 *Time: 07:11 Interval history: Patient reports chest congestion this morning and persistent shortness of breath. Yesterday patient received Lasix twice daily along with initiation of IV Solu-Medrol. Patient's pain has been better controlled with scheduled Toradol and as needed morphine 4 mg. Nursing staff reports morphine 4 mg may be too strong as patient seemed confused after administration. Exam Vital signs and Labs for Last 24 Hours: Temp Pulse Resp BP Pulse Ox 98.0 F 70 19 92/39 L 94 L 01/01/22 06:00 01/01/22 06:00 01/01/22 06:00 01/01/22 06:00 01/01/22 06:00 Laboratory Results - last 24 hr 12/31/21 05:09: TSH 4.70 H 12/31/21 17:00: Vancomycin Peak 27.3 01/01/22 00:15: Vancomycin Trough 13.1 H 01/01/22 05:30: WBC 10.1, RBC 3.27 L, Hgb 9.3 L, Hct 28.5 L, MCV 87.1, MCH 28.4, MCHC 32.7, RDW 13.9, Plt Count 433 H, MPV 8.1, Neut % (Auto) 90.2 H, Lymph % (Auto) 7.2 L, [place] % (Auto) 2.4, Eos % (Auto) 0.1, Baso % (Auto) 0.1, Neut # (Auto) 9.1 H, Lymph # (Auto) 0.7, [place] # (Auto) 0.2, Eos # (Auto) 0.0, Baso # (Auto) 0.0, Total Counted 100, Neutrophils % (Manual) 83 H, Band Neutrophils % 5.0, Lymphocytes % (Manual) 11, Monocytes % (Manual) 1 L, Platelet Estimate Slight increase, RBC Morphology Normal, [place] 2+ 01/01/22 05:30: Sodium 135 L, Potassium 3.5, Chloride 100, Carbon Dioxide 29, Anion Gap 9.5, BUN 13 D, Creatinine 0.70, Estimated Creat Clear 130, Estimated GFR 93, Est GFR ( Amer) 113, Glucose 123 H, Calcium 8.4, C-Reactive Protein 155.6 H I & O for Last 24 hours: Intake & Output 12/29/21 12/30/21 12/31/21 01/01/22 11:59 11:59 11:59 11:59 Intake Total 0 / 0 320 / 320 590 / 590 1180 / 1180 Output Total 200 / 200 825 / 825 3275 / 3275 1600 / 1600 Balance -200 / -200 -505 / -505 -2685 / -2685 -420 / -420 Weight 168 lb 9.012 oz 172 lb 2 oz 172 lb 14.4 oz 168 lb 12.8 oz Microbiology Reports for the Last 24 Hours: Microbiology 12/29/21 13:19 Transbronchial Biopsy - Left Lower Lobe Gram Stain - Final 12/29/21 13:19 Transbronchial Biopsy - Left Lower Lobe Surgical Biopsy Culture - Preliminary NO GROWTH AFTER 48 HOURS 12/29/21 13:19 Bronchial Washings - Left Lower Lobe Acid Fast Bacilli Smear - Final 12/28/21 16:10 Pericardial Fluid Gram Stain - Final 12/28/21 16:10 Pericardial Fluid Body Fluid Culture - Preliminary 12/29/21 08:43 Sputum - Expectorated Sputum Gram Stain - Final Narrative: Patient is sitting up in bed with no increased work of breathing, she is awake and alert. Nonrebreather is in place. Lung exam reveals crackles in the right lung anteriorly with rales in the posterior right base. Rales in the left base are present with breath sounds diminished in the left base as well. Heart has a regular rate and rhythm with questionable rub. Abdomen is soft. Lower extremities have no edema. CRP has decreased by 50% over the last 48 hours to 155 Assessment and Plan (1) Pneumonia Status: Acute Qualifiers: Pneumonia type: due to unspecified organism Laterality: bilateral Lung location: lower lobe of lung Qualified Code(s): J18.9 - Pneumonia, unspecified organism Category: Medical Code(s): J18.9 - Pneumonia, unspecified organism (2) Pericardial effusion Status: Acute Category: Medical Code(s): I31.3 - Pericardial effusion (noninflammatory) (3) Pericarditis Status: Acute Qualifiers: Pericarditis type: associated with other disease Chronicity: acute Qualified Code(s): I30.9 - Acute pericarditis, unspecified Category: Medical Code(s): I31.9 - Disease of pericardium, unspecified (4) Abnormal CXR (chest x-ray) Status: Acute Category: Medical Code(s): R93.89 - Abnormal findings on diagnostic imaging of other specified body structures (5) Rheumatoid arthritis Status: Acute Qualifiers: Rheumatoid arthritis location: multiple sites Rhe
--- NOTE | 2022-01-01 08:48 | P.PN_ITS ---
[facility] Anesthesia Record Part II Discharge Time: 14:25 Destination: floor PACU nurse assessment reviewed?: Yes Patient Condition:: Good Anesthesia Complications:: None Swallowing reflex intact?: Yes Cyanosis?: No Blood Pressure: 114/63 Pulse Rate: 119 Temperature: 99.8 F Mental Status: Alert & Oriented Pain level:: 0 Nausea and/or vomitting:: None Intake, IV Amount: 500
--- NOTE | 2022-01-01 08:52 | HMH.ACPN ---
Internal Medicine - PN: Subj *Date: 01/01/22 *Time: 08:52 Exam Vital signs and Labs for Last 24 Hours: Temp Pulse Resp BP Pulse Ox 99.8 F H 119 H 19 114/63 94 L 01/01/22 08:49 01/01/22 08:49 01/01/22 06:00 01/01/22 08:49 01/01/22 06:00 Laboratory Results - last 24 hr 12/28/21 16:50: Fluid Albumin 2.9 12/31/21 05:09: TSH 4.70 H 12/31/21 17:00: Vancomycin Peak 27.3 01/01/22 00:15: Vancomycin Trough 13.1 H 01/01/22 05:30: WBC 10.1, RBC 3.27 L, Hgb 9.3 L, Hct 28.5 L, MCV 87.1, MCH 28.4, MCHC 32.7, RDW 13.9, Plt Count 433 H, MPV 8.1, Neut % (Auto) 90.2 H, Lymph % (Auto) 7.2 L, [place] % (Auto) 2.4, Eos % (Auto) 0.1, Baso % (Auto) 0.1, Neut # (Auto) 9.1 H, Lymph # (Auto) 0.7, [place] # (Auto) 0.2, Eos # (Auto) 0.0, Baso # (Auto) 0.0, Total Counted 100, Neutrophils % (Manual) 83 H, Band Neutrophils % 5.0, Lymphocytes % (Manual) 11, Monocytes % (Manual) 1 L, Platelet Estimate Slight increase, RBC Morphology Normal, Rouleaux 2+ 01/01/22 05:30: Sodium 135 L, Potassium 3.5, Chloride 100, Carbon Dioxide 29, Anion Gap 9.5, BUN 13 D, Creatinine 0.70, Estimated Creat Clear 130, Estimated GFR 93, Est GFR ( Amer) 113, Glucose 123 H, Calcium 8.4, C-Reactive Protein 155.6 H 01/01/22 05:30: Free T4 1.20 I & O for Last 24 hours: Intake & Output 12/29/21 12/30/21 12/31/21 01/01/22 23:59 23:59 23:59 23:59 Intake Total 320 / 320 120 / 120 1300 / 1300 970 / 970 Output Total 800 / 800 1999 / 1999 2200 / 2200 1850 / 1850 Balance -480 / -480 -1880 / -1880 -900 / -900 -880 / -880 Weight 76.459 kg 78.075 kg 78.426 kg 76.566 kg Microbiology Reports for the Last 24 Hours: Microbiology 12/29/21 08:43 Sputum - Expectorated Sputum Gram Stain - Final 12/29/21 08:43 Sputum - Expectorated Sputum Sputum Culture - Preliminary 12/29/21 13:19 Transbronchial Biopsy - Left Lower Lobe Gram Stain - Final 12/29/21 13:19 Transbronchial Biopsy - Left Lower Lobe Surgical Biopsy Culture - Preliminary NO GROWTH AFTER 48 HOURS 12/29/21 13:19 Bronchial Washings - Left Lower Lobe Acid Fast Bacilli Smear - Final 12/28/21 16:10 Pericardial Fluid Gram Stain - Final 12/28/21 16:10 Pericardial Fluid Body Fluid Culture - Preliminary Assessment and Plan (1) Pneumonia Status: Acute Qualifiers: Pneumonia type: due to unspecified organism Laterality: bilateral Lung location: lower lobe of lung Qualified Code(s): J18.9 - Pneumonia, unspecified organism Category: Medical Code(s): J18.9 - Pneumonia, unspecified organism (2) Pericardial effusion Status: Acute Category: Medical Code(s): I31.3 - Pericardial effusion (noninflammatory) (3) Pericarditis Status: Acute Qualifiers: Pericarditis type: associated with other disease Chronicity: acute Qualified Code(s): I30.9 - Acute pericarditis, unspecified Category: Medical Code(s): I31.9 - Disease of pericardium, unspecified (4) Abnormal CXR (chest x-ray) Status: Acute Category: Medical Code(s): R93.89 - Abnormal findings on diagnostic imaging of other specified body structures (5) Rheumatoid arthritis Status: Acute Qualifiers: Rheumatoid arthritis location: multiple sites Rheumatoid factor presence: with rheumatoid factor Qualified Code(s): M05.79 - Rheumatoid arthritis with rheumatoid factor of multiple sites without organ or systems involvement Category: Medical Code(s): M06.9 - Rheumatoid arthritis, unspecified (6) Tobacco use Status: Acute Category: Social Hx Code(s): Z72.0 - Tobacco use (7) Pleural effusion Status: Acute Category: Medical Code(s): J90 - Pleural effusion, not elsewhere classified The patient's infection will respond to the chosen ABx?: Yes (EMPIRIC THERAPY) Is the patient receiving the right drug, dose, and route?: Yes Could a more targeted ABx be ordered?: No (BRONCH CULTURES PENDING)
--- NOTE | 2022-01-01 09:15 | HMH.PULMPN ---
Internal Medicine - PN: Subj *Date: 01/01/22 *Time: 10:45 Interval history: No acute respiratory vents over the weekend. Patient admits continued improvement in his symptoms. Exam - Constitutional Constitutional:: Present: no acute distress, comfortable - HENMT Exam HENMT: Present: normocephalic, atraumatic - Eye Exam Eyes:: Present: normal appearance both eyes and related structures - Neck Exam Neck:: Present: normal visual inspection - Respiratory Exam Respiratory:: Present: able to speak in complete sentences, no respiratory distress, crackles. Absent: wheezing - Cardiovascular Exam Cardiac:: Present: S1, S2 - GI Exam GI:: Present: soft - Skin Exam Skin: Present: warm, no rash - Neurological Exam Neurological: Present: alert, awake, normal cognition - Extremities Exam Extremities: Present: no cyanosis, no clubbing, no edema - Psychiatric Exam Psychiatric: Present: normal affect Assessment and Plan (1) Pneumonia Status: Acute Qualifiers: Pneumonia type: due to unspecified organism Laterality: bilateral Lung location: lower lobe of lung Qualified Code(s): J18.9 - Pneumonia, unspecified organism Category: Medical Code(s): J18.9 - Pneumonia, unspecified organism (2) Pericardial effusion Status: Acute Category: Medical Code(s): I31.3 - Pericardial effusion (noninflammatory) (3) Pericarditis Status: Acute Qualifiers: Pericarditis type: associated with other disease Chronicity: acute Qualified Code(s): I30.9 - Acute pericarditis, unspecified Category: Medical Code(s): I31.9 - Disease of pericardium, unspecified (4) Abnormal CXR (chest x-ray) Status: Acute Category: Medical Code(s): R93.89 - Abnormal findings on diagnostic imaging of other specified body structures (5) Rheumatoid arthritis Status: Acute Qualifiers: Rheumatoid arthritis location: multiple sites Rheumatoid factor presence: with rheumatoid factor Qualified Code(s): M05.79 - Rheumatoid arthritis with rheumatoid factor of multiple sites without organ or systems involvement Category: Medical Code(s): M06.9 - Rheumatoid arthritis, unspecified (6) Tobacco use Status: Acute Category: Social Hx Code(s): Z72.0 - Tobacco use (7) Pleural effusion Status: Acute Category: Medical Code(s): J90 - Pleural effusion, not elsewhere classified - Assessment and plan all Dx Assessment and Plan for all problems:: #History of rheumatoid arthritis: #Acute hypoxic respiratory failure: #Pericardial effusion status post pericardiocentesis: #ESPINOZA Pneumonia: # 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 Status post right middle lobe wedge biopsy from September 2021 that did not show any evidence of interstitial lung disease/RB ILD/DH. Showed nonspecific inflammation with interstitial fibrosis. Negative for AFB and fungal elements. Echo from February 2021 normal EF with normal RV size and function with estimated normal PAP. Patient noted to have trace pericardial effusion on that echocardiogram. without any evidence of tamponade. Trace TR and TX Experiencing worsening respiratory distress and nonresolving symptoms for the last 1 month status post multiple rounds of antibiotic courses with no significant improvement. Presented to the hospital and found to have large pericardial effusion status post drainage. Mild improvement in symptoms. CTA did not show any evidence of pulmonary embolism showed bilateral diffuse groundglass opacity along with bilateral lower lobe pneumonia left greater than right. Mediastinal and hilar adenopathy also noted. COVID-19 and flu PCR negative. Blood with significant leukocytosis on presentation, leukocytosis improving. Initiated on vancomycin and cefepime. Interval update: Status post bronchoscopy, infectious work-up so far negative. Leukocytosis improving. C-reactive protein i
--- NOTE | 2022-01-01 12:26 | HMH.PNCARD ---
Subjective Date: 01/01/22 Time: 09:30 Principal diagnosis: Pericardial effusion with cardiac tamponade Interval history: This is a 41-year-old white female who was admitted to the hospital after being found to have a pericardial effusion with cardiac tamponade. She is status post pericardiocentesis. This morning she states that her shortness of breath is worse than it was when she came into the hospital with exertion. She states that it does improve with rest but does not resolve. She states that she continues to feel like her shortness of breath keeps getting worse. She denies any chest pain or pressure. She states that she does have some soreness in her chest where she had the pericardiocentesis but this is continuing to improve. She states that she is extremely fatigued and has no energy to do anything. She denies any lower extremity edema. She denies any fever or chills. She does state that her shortness of breath is associated with orthopnea. Exam Vital signs and Labs for Last 24 Hours: Temp Pulse Resp BP Pulse Ox 99.8 F H 73 20 102/77 L 96 01/01/22 08:49 01/01/22 11:20 01/01/22 10:00 01/01/22 10:00 01/01/22 11:20 Laboratory Results - last 24 hr 12/28/21 16:50: Fluid Albumin 2.9 12/31/21 17:00: Vancomycin Peak 27.3 01/01/22 00:15: Vancomycin Trough 13.1 H 01/01/22 05:30: WBC 10.1, RBC 3.27 L, Hgb 9.3 L, Hct 28.5 L, MCV 87.1, MCH 28.4, MCHC 32.7, RDW 13.9, Plt Count 433 H, MPV 8.1, Neut % (Auto) 90.2 H, Lymph % (Auto) 7.2 L, [place] % (Auto) 2.4, Eos % (Auto) 0.1, Baso % (Auto) 0.1, Neut # (Auto) 9.1 H, Lymph # (Auto) 0.7, [place] # (Auto) 0.2, Eos # (Auto) 0.0, Baso # (Auto) 0.0, Total Counted 100, Neutrophils % (Manual) 83 H, Band Neutrophils % 5.0, Lymphocytes % (Manual) 11, Monocytes % (Manual) 1 L, Platelet Estimate Slight increase, RBC Morphology Normal, Rouleaux 2+ 01/01/22 05:30: Sodium 135 L, Potassium 3.5, Chloride 100, Carbon Dioxide 29, Anion Gap 9.5, BUN 13 D, Creatinine 0.70, Estimated Creat Clear 130, Estimated GFR 93, Est GFR ( Amer) 113, Glucose 123 H, Calcium 8.4, C-Reactive Protein 155.6 H 01/01/22 05:30: Free T4 1.20 I & O for Last 24 hours: Intake & Output 12/29/21 12/30/21 12/31/21 01/01/22 23:59 23:59 23:59 23:59 Intake Total 320 / 320 120 / 120 1300 / 1300 970 / 970 Output Total 800 / 800 2000 / 2000 2200 / 2200 1850 / 1850 Balance -480 / -480 -1880 / -1880 -900 / -900 -880 / -880 Weight 168 lb 9.012 oz 172 lb 2 oz 172 lb 14.4 oz 168 lb 12.8 oz Microbiology Reports for the Last 24 Hours: Microbiology 12/29/21 08:43 Sputum - Expectorated Sputum Gram Stain - Final 12/29/21 08:43 Sputum - Expectorated Sputum Sputum Culture - Preliminary 12/29/21 13:19 Transbronchial Biopsy - Left Lower Lobe Gram Stain - Final 12/29/21 13:19 Transbronchial Biopsy - Left Lower Lobe Surgical Biopsy Culture - Preliminary NO GROWTH AFTER 48 HOURS 12/29/21 13:19 Bronchial Washings - Left Lower Lobe Acid Fast Bacilli Smear - Final - Constitutional no acute distress, average body habitus - *Routine HEENT Exam Head: Present: normocephalic, atraumatic Eye: Present: EOMI, PERRL ENT: Present: mucous membranes moist - *Routine Neck Exam Present: supple, full ROM, normal carotid upstroke. Absent: JVD, carotid bruit, lymphadenopathy - *Routine Respiratory Exam Present: CTA bilaterally Comments: tachypnea - *Routine Cardiovascular Exam Present: RRR, Normal S1, Normal S2. Absent: murmur - *Routine Abdominal Exam Present: soft, normoactive bowel sounds. Absent: tenderness, distended - *Routine Extremities Exam Present: full ROM, pulses intact, normal capillary refill. Absent: cyanosis, clubbing, edema - *Routine Skin Exam Present: intact, warm. Absent: erythema, rash - *Routine Neurological Exam Present: alert, oriented X3, CN II-XII intact. Absent: sensory deficit, motor deficit Progress Note: A&P (1) Pericardial effusion Status: Acut
--- NOTE | 2022-01-01 13:10 | CA_ITS ---
APPROVED REPORT EXAM: Comprehensive 2D, Doppler, and color-flow Echocardiogram Heel Edge Inker Machine: Stacy Sidhu CRT Ht: 5 ft 4 in Wt: 168lbs BSA: 1.82 BP: 124/80 mmHg Indications: Pericardial Effusion S/P pericardiocentesis 12/28/21 Conclusion 1. Limited echocardiogram performed. 2. Normal left ventricular size and function 3. There is an echo-free space seen, there is no significant pericardial effusion noted. Electronically signed by : Johann Fountain MD 01/01/2022 19:15:18
--- NOTE | 2022-01-01 13:34 | CT_ITS ---
FINAL REPORT TECHNIQUE: Axial images were obtained from the lung apex to the mid abdomen by computed tomography. Coronal and sagittal reformatted images were obtained. This study was performed with techniques to keep radiation doses as low as reasonably achievable, (ALARA). Individualized dose reduction techniques using automated exposure control or adjustment of mA and/or kV according to the patient''s size were employed. CLINICAL HISTORY: cardiac tamponade/pericardial effusion COMPARISON: December 28, 2021 FINDINGS: Several mildly enlarged mediastinal nodes are seen. There has been interval improvement in the pericardial effusion. A small pericardial effusion persists measuring up to 9 mm in thickness. The heart size is normal. There has been interval improvement in the bilateral lower lobe atelectasis or pneumonia and small pleural effusions. There are widespread pulmonary ground glass opacities may represent edema or bilateral pneumonia. A small left pneumothorax is seen with up to 13 mm of pleural separation. Limited images of the upper abdomen are unremarkable. IMPRESSION: Significant interval improvement in the pericardial effusion with a small persistent pericardial effusion. Improved bilateral lower lobe atelectasis or pneumonia and small effusions. Small left pneumothorax. Widespread pulmonary ground glass opacities may represent edema or bilateral pneumonia. Authenticated by Ariel Wyatt III, MD on 01/01/2022 05:01:33 PM [facility]
--- NOTE | 2022-01-01 14:19 | SUR.PHASEII ---
Pt to CT at this time via [facility]
[2022-01-01 15:11] LABS: CATHL Venous O2 SAT 77.8 % (75-80)
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
--- NOTE | 2022-01-01 17:00 | PC.NURSE ---
unable to change charting for 1500 cefepime. pt did not receive related to agitation, aggression and wandering.
--- NOTE | 2022-01-01 19:26 | PC.NURSE ---
dr Ireland notified of pt condition/actions. notified unable to give some afternoon meds and pt is unwilling to allow staff to get vitals. family is currently in the room keeping pt calm. notified Dr Ireland that the transfer center is supposed to contact us in the next couple of hours about a bed. nno
[2022-01-02 16:28] LABS: Histoplasma Gal'mannan Ag Ur <0.5 (<0.5 ng/mL)
[2022-01-02 23:36] LABS: IgG, Subclass 1 278 mg/dL (248-810); IgG, Subclass 2 171 mg/dL (130-555); IgG, Subclass 3 26 mg/dL (15-102); IgG, Subclass 4 13 mg/dL (2-96); Immunoglobulin G, Qn 537 mg/dL (586-1602)
[2022-01-03 13:24] LABS: Fungitell(Beta D-Glucan) Serum <31 pg/mL (<80)
--- NOTE | 2022-01-04 07:49 | HMH.DCSUM ---
General - General Admission date:: 12/28/21 Discharge date: 01/01/22 HPI HPI: 41-year-old female sent to the emergency room yesterday from the office with increasing shortness of breath, chest discomfort when supine relieved with sitting up and leaning forward, and fevers to 102 at home. Patient has been to the office approximately 3 times this year for respiratory complaints and treated for bronchitis/pneumonia with various courses of antibiotics. Work-up in the emergency department revealed bilateral infiltrates as well as large pericardial effusion. White blood cell count was elevated. Cardiology was consulted from the emergency room and echocardiogram was performed which confirmed the presence of a large pericardial effusion. Patient underwent pericardiocentesis with aspiration of 400 mL of serosanguineous fluid by Dr. Gautam. Patient was admitted for treatment of pneumonia as well as pericardial effusion. Pericardial drain is remained in place overnight. Patient has a personal history of Mycobacterium avium complex pneumonia in 2019. MAC was diagnosed via bronchoscopy by Dr. Pinto. Patient completed treatment with 3 months of antibiotics under the supervision of Dr. Pinto in [place]. Patient subsequently in 2020 saw infectious disease specialist Dr. Grewal in [place]. There was question as to the legitimacy of her MAC diagnosis. Dr. Grewal restarted the patient on a course of treatment for MAC and arranged for further evaluation with VATS procedure. In September 2021 patient was hospitalized at [facility] and underwent VATS procedure with wedge resection of right middle lobe. All testing related to her biopsy was negative. Patient tells me after her VATS procedure and testing confirmed no infection or malignancy antibiotics were stopped. Records are on her chart regarding biopsy results. Patient has rheumatoid arthritis managed by Dr. Ryan at [facility]. Patient has been intolerant of leflunomide, hydroxychloroquine, sulfasalazine due to claims of recurrent infections while taking these medicines. Patient had an allergic reaction to Enbrel (etanercept). Patient has been given prednisone burst in the past but currently is not taking any prednisone. Hospital Course Hospital Course: Patient was admitted with diagnosis of pericardial effusion and suspected pneumonia. Patient underwent pericardiocentesis by cardiology service on the day of admission with aspiration of 400 mL of fluid from the pericardial space. Pericardial drain was left in place for approximately 24 hours. There is additional output of 100 mL and pericardial drain was removed. Plan for the pericardial effusion was right heart catheterization which was performed on January 01. 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 Patient had had documented small pericardial effusion back in the spring 2020. Due to the chronicity of this condition and possible need for pericardiectomy cardiology service arranged transfer to the [facility] where patient was accepted in transfer by Dr. Lee. On the evening of January 01 patient was transferred to the [facility]. Patient also had pneumonia on admission. Patient has a history of MAC. She had been treated with outpatient antibiotics on multiple occasions since October. On admission she was placed on cefepime and vancomycin. Patient underwent bronchoscopy By pulmonology service on December 29. BAL Gram stain grew gram-positive cocci in clusters. After 5 days there was no growth. At the time of discharge patient remained on cefepime.. BAL studies include acid-fast bacilli were still pending. Beta D glucan and testing for histoplasmosis was negative to send out. Patient's acute respiratory failure was a combination of her pericardial effusion/pericarditis as well as pneumonia. Patient required nonrebreather to maintain O2 sats during h
[2022-01-05 10:08] LABS: Cell Count + Differential, BAL SEE COMMENTS
--- NOTE | 2022-01-11 14:46 | HMH.PROC ---
[facility] Procedure Note Procedure Note:: Procedure: Emergent pericardiocentesis Location for test: Cardiac tamponade large pericardial effusion Informed consent was obtained prior to procedure Loss less than 10 cc Technique: The subxiphoid area was sterilely prepped and Versed and fentanyl were given for sedation. Large pericardial needle was placed in the subxiphoid area and directed into the pericardial space where serosanguineous fluid was aspirated. Following this a pericardial wire was advanced into the pericardial space and a 6 Yemeni dilator was used to open the track going into the pericardial space. A 6 Yemeni pigtail catheter was then advanced into the pericardial space and then connected to a drainage bag. Pigtail catheter was then sutured in place and the area was sterilely covered. Patient tolerated the procedure well and experienced immediate hemodynamic improvement upon relieving large pericardial effusion. Impression: Successful emergent pericardiocentesis alleviating cardiac tamponade Plan: Admit the pericardial fluid for cytology and chemical analysis combined with supportive care and repeat echocardiography
[2022-02-08 22:57] LABS: LD, Body Fluid 1181
[2022-02-08 22:58] LABS: Protein, Body Fluid 5.1
== END 2022-01-01 21:13 | disposition short-term general hospital (02) | DRG 286 ==
LOC: ER 14:59 → 2ND 15:12
PROVIDERS: Internal Medicine; Internal Medicine Pulmonary Disease; Admitting Provider Family Medicine; Emergency Provider Emergency Medicine; PCP Family Medicine; Visit Provider Family Medicine
PROC: 0B9J8ZX Drainage of Left Lower Lung Lobe, Via Natural or Artificial Opening Endoscopic, Diagnostic (ICD-10-PCS; principal; 2021-12-29 12:45)
PROC: 4A023N6 Measurement of Cardiac Sampling and Pressure, Right Heart, Percutaneous Approach (ICD-10-PCS; principal; 2022-01-01 11:00)
DX: I30.9 Acute pericarditis, unspecified (principal); J18.9 Pneumonia, unspecified organism; J96.01 Acute respiratory failure with hypoxia; M79.7 Fibromyalgia; M06.9 Rheumatoid arthritis, unspecified; F17.210 Nicotine dependence, cigarettes, uncomplicated; I10 Essential (primary) hypertension; Y95 Nosocomial condition; Z20.822 Contact with and (suspected) exposure to COVID-19; I31.4 Cardiac tamponade
CPT/HCPCS: 31624; 31628; 33010; 33017; 36415; 71045; 71250; 71275; 76000; 80048; 80202; 82042; 82533; 82784; 82787; 82803; 82810; 82945; 83605; 83615; 83735; 83880; 84155; 84439; 84443; 84484; 85007; 85014; 85018; 85025; 85048; 85049; 85378; 86140; 87040; 87070; 87102; 87106; 87116; 87186; 87205; 87206; 87385; 87449; 89051; 93005; 93306; 93308; 93451; 94640; 94760; 96365; 96366; 96375; 99152; 99285; C1725; C1894; C9803; J1644; J2405; J3370; Q9967; U0003; U0005

== ENCOUNTER 2022-02-06 19:38 | Emergency (ER) | payer BC, SELFPAY ==
--- NOTE | 2022-02-06 19:35 | ECG_ITS ---
APPROVED REPORT Exam: Resting ECG HR:76 bpm ECG Measurements Heart Rate 76 AXES WA 144 P 46 QRSd 109 QRS 35 QT 360 T 45 QTc [address] DEVIATION AND MODERATE T-WAVE ABNORMALITY, CONSIDER ANTERIOR ISCHEMIA [-0.1+ mV T-WAVE IN V3/V4] ABNORMAL ECG UNCONFIRMED REPORT Electronically signed by : Adam Cleveland MD 02/07/2022 17:34:22
[2022-02-06 19:38] VITALS: BP 134/79; PULSE 81; RESP 19; TEMP 37.1; O2SAT 98; BMI 28.1
--- NOTE | 2022-02-06 19:47 | XR_ITS ---
PROCEDURE INFORMATION: Exam: XR Chest Exam date and time: 02/06/2022 7:41 PM Age: 41 years old Clinical indication: Pain; Chest pressure; Additional info: Mid chest pain , pain going up neck and down left arm, PT stated she had this type of pain x 1 month ago and was dx with pericarditis , former smoker, hysterectomy TECHNIQUE: Imaging protocol: XR of the chest. Views: 2 views. COMPARISON: CT CHEST WO CON 01/01/2022 2:19 PM FINDINGS: Lungs: Unremarkable. No consolidation. Pleural spaces: Unremarkable. No pleural effusion. No pneumothorax. Heart/Mediastinum: Unremarkable. No cardiomegaly. Bones/joints: Unremarkable. IMPRESSION: No acute findings.
[2022-02-06 19:54] LABS: Microscopic, Urine URINE MICROSCOPIC (MICROSCOPIC)
[2022-02-06 19:54] LABS: Coronavirus 19, PCR Not Detected (NotDetected); Influenza A, PCR Not Detected (NotDetected); Influenza B, PCR Not Detected (NotDetected)
[2022-02-06 20:01] LABS: Anion Gap 10.6 mEq/L (5-15); Blood Urea Nitrogen 9 mg/dl (7-17); Calcium 8.9 mg/dl (8.4-10.2); Carbon Dioxide 27 mmol/L (22.0-30.0); Chloride 107 mmol/L (98-107); Creatinine Clearance Estimated 93 mL/min (50-200); Estimated Glomerular Filt Rate 70 ml/min (>60); GFR (African American) 84 ML/MIN (>60); Glucose 95 mg/dl (74-100); Potassium 3.6 mmoL/L (3.5-5.1); Sodium 141 mmol/L (136-145)
[2022-02-06 20:02] LABS: Basophils # 0.1 K/mm3 (0-0.2); Basophils % 0.8 % (0.1-2.0); Eosinophils # 0.2 K/mm3 (0.0-0.4); Eosinophils % 1.7 % (0.1-12.0); Hemoglobin 11.3 g/dL (12.2-16.2); Lymphocytes # 3.5 K/mm3 (0.7-4.5); Lymphocytes % 27.1 % (10-50); Mean Corpuscular HGB Conc 33.1 g/dL (31.8-35.4); Mean Corpuscular Hemoglobin 28.6 pg (27.0-31.2); Mean Corpuscular Volume 86.3 fl (81-99); Mean Platelet Volume 9.5 fl (7.4-10.4); Monocytes # 0.5 K/mm3 (0.1-1.0); Monocytes % 3.6 % (1.7-9.3); Neutrophils # 8.6 K/mm3 (1.8-7.8); Neutrophils % 66.8 % (37.0-80.0); Platelet Count 348 K/mm3 (142-424); Red Blood Count 3.94 M/mm3 (4.20-5.40); Red Cell Distribution Width 14.6 % (11.5-17.5); White Blood Count 12.8 K/mm3 (4.8-10.8)
[2022-02-06 20:03] LABS: Appearance,Urine CLEAR (Clear); Bilirubin,Urine Negative (Negative); Blood, Urine Negative (Negative); Color,Urine YELLOW (Yellow); Glucose,Urine (UA) Negative (Negative); Ketones,Urine Negative (Negative); Leukocyte Esterase,Urine Negative (Negative); Nitrate,Urine Negative (Negative); PH,Urine 7.5 (5.0-8.5); Protein,Urine Negative (Negative); Urobilinogen,Urine 0.2 EU/dl (0.2)
[2022-02-06 20:15] LABS: Troponin I < 0.01 ng/ml (0.00-0.034)
[2022-02-06 20:19] LABS: Procalcitonin 0.101 ng/mL (0.0-2.0)
[2022-02-06 20:24] LABS: NT Pro Brain Natriuretic Pep. 99.9 pg/mL (0-125)
--- NOTE | 2022-02-06 20:31 | HMH.EDCP ---
ED Disposition Clinical Impression: Atypical chest pain, Pneumonitis Disposition: Home, Self-Care Condition on Discharge: Good Instructions: DI for Atypical Chest Pain Additional Instructions: see pcp for follow up and use meds as directed Prescriptions: predniSONE [Prednisone 20mg Tab] 20 mg PO BID #10 tab Transmission Status: Pending to [id number] Azithromycin [Zithromax 250mg tab] 250 mg PO DIRECTED #6 tab Transmission Status: Pending to [id number] Referrals: Arun Pond MD [Primary Care Provider] - - Critical Care Critical Care Time: No Attestation: On 02/06/22, the high probability of a clinically significant, sudden or life threatening deterioration of the following system(s) required my full and direct attention, intervention and personal management. The time I documented below is in addition to time spent performing reported procedures but includes the following listed in this critical care notation. Medical Decision Making - Medical Records Medical records reviewed: Yes: I reviewed the patient's medical records. - Jann Inquiry Pt receiving controlled substance: No Vital Signs: 02/06/22 19:38 Temperature 98.7 F Temperature Source Oral Pulse Rate [Left Radial] 81 Respiratory Rate 19 Blood Pressure [Right Arm] 134/79 Blood Pressure Mean [Right Arm] 97 02 Sat by Pulse Oximetry 98 Oxygen Delivery Method Room Air - Lab Data Lab results reviewed: Yes: I reviewed the patient's lab results. Lab Results 02/06/22 19:40: WBC 12.8 H, RBC 3.94 L, Hgb 11.3 L, Hct 34.0 L, MCV 86.3, MCH 28.6, MCHC 33.1, RDW 14.6, Plt Count 348, MPV 9.5, Neut % (Auto) 66.8, Lymph % (Auto) 27.1, [place] % (Auto) 3.6, Eos % (Auto) 1.7, Baso % (Auto) 0.8, Neut # (Auto) 8.6 H, Lymph # (Auto) 3.5, [place] # (Auto) 0.5, Eos # (Auto) 0.2, Baso # (Auto) 0.1, ESR 44 H 02/06/22 19:40: Sodium 141, Potassium 3.6, Chloride 107, Carbon Dioxide 27, Anion Gap 10.6, BUN 9, Creatinine 0.90, Estimated Creat Clear 93, Estimated GFR 70, Est GFR ( Amer) 84, Glucose 95, Calcium 8.9, Troponin I < 0.01, Procalcitonin 0.101 02/06/22 19:40: NT-Pro-B Natriuret Pep 99.9 02/06/22 19:40: C-Reactive Protein 15.1 H 02/06/22 19:45: SARS-CoV-2 (PCR) Not detected, Influenza A Untype (PCR) Not detected, Influenza Type B (PCR) Not detected 02/06/22 19:49: Urine Color Yellow, Urine Appearance Clear, Urine pH 7.5, Ur Specific [place] 1.010, Urine Protein Negative, Urine Glucose (UA) Negative, Urine Ketones Negative, Urine Blood Negative, Urine Nitrate Negative, Urine Bilirubin Negative, Urine Urobilinogen 0.2, Ur Leukocyte Esterase Negative, Urine RBC None, Urine WBC Occasional, Ur Squamous Epith Cells Occasional, Urine Bacteria Trace Result diagrams: 02/06/22 19:40 02/06/22 19:40 Orders (Tests/Meds): ED MEDICATIONS Discontinued Medications Generic Name Dose Route Start Last Admin Trade Name Freq PRN Reason Stop Dose Admin Aspirin 324 mg 02/06/22 19:48 02/06/22 19:53 Aspirin 81mg Chewable Tablet PO 02/06/22 19:49 324 mg ONCE ONE Administration Sodium Chloride 1,000 mls @ 999 mls/hr 02/06/22 20:00 02/06/22 19:53 Sod Chlor 0.9% 1000ml Bag IV 02/06/22 21:00 999 mls/hr .Q1H1M KINGSLEY Administration Iopamidol 70 ml 02/06/22 20:52 02/06/22 20:52 Iopamidol-370 (76%);100ml Bottle IV 02/06/22 20:53 70 ml ONCE ONE Administration Nitroglycerin 0.4 mg 02/06/22 19:48 02/06/22 19:53 Nitroglycerin 0.4mg Sl Tablet SL 02/06/22 19:49 1 tab ONCE ONE Administration Sodium Chloride 50 ml 02/06/22 20:52 02/06/22 20:52 0.9 % Sodium Chloride 50 Ml Vial IV 02/06/22 20:53 50 ml ONCE ONE Administration Sodium Chloride 10 ml 02/06/22 20:52 02/06/22 20:52 Sodium Chloride 0.9% 10ml Syr (Rad Only) IV 02/06/22 20:53 10 ml ONCE ONE Administration ORDERS Category Date Time Status Troponin I Q3H Lab 02/06/22 23:00 Ordered Troponin I Q3H Lab 02/07/22 02:00 Ordered - R
--- NOTE | 2022-02-06 20:33 | CT_ITS ---
PROCEDURE INFORMATION: Exam: CTA Chest With Contrast Exam date and time: 02/06/2022 8:45 PM Age: 41 years old Clinical indication: Sternal or substernal pain; Additional info: Chest pain TECHNIQUE: Imaging protocol: Computed tomographic angiography of the chest with contrast. 3D rendering (Not supervised by radiologist): MIP and/or 3D reconstructed images were created by the technologist. Radiation optimization: All CT scans at this facility use at least one of these dose optimization techniques: automated exposure control; mA and/or kV adjustment per patient size (includes targeted exams where dose is matched to clinical indication); or iterative reconstruction. Contrast material: ISOVUE; Contrast volume: 70 ml; Contrast route: INTRAVENOUS (IV); COMPARISON: CT ANGIO CHEST PE PROTOCOL 12/28/2021 12:46 PM FINDINGS: Pulmonary arteries: Normal. No pulmonary emboli. Aorta: No aortic aneurysm. No aortic dissection. Lungs: Multifocal dependent ground-glass pulmonary opacities. Pleural spaces: No pneumothorax. No pleural effusion. Heart: No cardiomegaly. No pericardial effusion. Lymph nodes: No enlarged lymph nodes. Bones/joints: No acute fracture. Soft tissues: No significant swelling. IMPRESSION: Multifocal dependent ground-glass pulmonary opacities which may be hypoventilatory however atypical pneumonitis or developing interstitial edema should be clinically excluded.
[2022-02-06 20:39] LABS: Bacteria,Urine Trace /lpf; Squamous Epithelial Cell,Urine Occasional #/hpf (0-5); WBC,Urine Occasional #/hpf (0-3)
[2022-02-06 20:57] LABS: C-Reactive Protein 15.1 mg/L (0-4)
[2022-02-06 21:10] LABS: Erythrocyte Sedimentation Rate 44 mm/hr (0-20)
[2022-02-06 21:38] VITALS: BP 106/66; PULSE 70; RESP 18; TEMP 36.7; O2SAT 99
== END 2022-02-06 21:40 | disposition home or self-care (01) ==
PROVIDERS: Emergency Provider Emergency Medicine; PCP Family Medicine
DX: R07.89 Other chest pain (principal); J18.9 Pneumonia, unspecified organism; E78.5 Hyperlipidemia, unspecified; I10 Essential (primary) hypertension; F41.9 Anxiety disorder, unspecified; F17.210 Nicotine dependence, cigarettes, uncomplicated; M79.7 Fibromyalgia; Z79.899 Other long term (current) drug therapy
CPT/HCPCS: 71046; 71275; 80048; 81001; 83880; 84145; 84484; 85025; 85651; 86140; 93005; 96365; 99284; C9803; Q9967; U0003; U0005

== ENCOUNTER → 2022-03-05 13:08 | Outpatient (CLI) | payer BC, SELFPAY ==
[2022-03-05 13:40] VITALS: PULSE 83; PULSE 86
== END ==
PROVIDERS: PCP Family Medicine; Visit Provider Internal Medicine Pulmonary Disease
DX: R06.00 Dyspnea, unspecified (principal)
CPT/HCPCS: 94060; 94618; 94640; 94727; 94729; 94762

== ENCOUNTER → 2022-03-28 12:00 | Outpatient (CLI) | payer BC, SELFPAY ==
[2022-03-28 12:57] LABS: C-Reactive Protein 5.7 mg/L (0-4)
[2022-03-29 17:15] LABS: Cytoplasmic (C-ANCA) <1:20 titer (Neg:<1:20); Perinuclear (P-ANCA) <1:20 titer (Neg:<1:20)
[2022-03-30 03:39] LABS: Anti-Cyclic Citrullinated Pept 5 units (0-19)
[2022-04-02 19:27] LABS: Antinuclear Antibodies (ANA) NEGATIVE
== END ==
PROVIDERS: Visit Provider Internal Medicine Pulmonary Disease
DX: R06.00 Dyspnea, unspecified (principal); J84.9 Interstitial pulmonary disease, unspecified
CPT/HCPCS: 36415; 86038; 86140; 86200; 86225; 86235; 86256; 86431

== ENCOUNTER → 2022-04-30 12:48 | Outpatient (CLI) | payer BC, SELFPAY ==
--- NOTE | 2022-04-30 12:49 | CA_ITS ---
APPROVED REPORT EXAM: Comprehensive 2D, Doppler, and color-flow Echocardiogram Maintenance Of Way Superintendent: Marlen Fierro RVT Ht: 5 ft 3 in Wt: 156lbs BSA: 1.74 BP: 117/71 mmHg Indications: SOA,HX PERICARDIOCENTESIS 12/28/21, HX COVID 2020 2D Dimensions LVOT 1.91 cm (M/F) 1.5-2.5 LA Volume 12.50 mL LA Volume Index 7.18 mL/m2 (M/F) 16-34 M-Mode Dimensions RVDd 1.86 cm (0.9-2.6) LA Diam 2.78 cm (1.9-4.0) LVDd 3.25 cm (3.5-5.7) Ao Diam 2.82 cm (2.0-3.7) LVDs 2.11 cm (3.5-5.7) IVSd 1.29 cm (0.6-1.1) PWd 1.54 cm (0.6-1.1) EF (Teich) 65.60% FS 35.10% EDV (Teich) 42.50 mL TAPSE 1.52 (<1.7) ESV (Teich) 14.60 mL LV Diastology E Decel Time 253.00 (160-240 msec) E/A Ratio 1.1 MED E' 6.40 (< 7 cm/sec) E'/MED E' Ratio 11.39 (>14) LAT E' 12.70 (<10 cm/sec) E/LAT E' Ratio 5.74 (>14) Aortic Valve AO Peak GR. 5.50 mmHg Mitral Valve MV E Max Kamlesh. 73.00 (40-130 cm/s) MV A Velocity 69.00 (40-130 cm/s) E/A Ratio 1.05 MV Decel. Time 253.00 (160-240 ms) MV PHT 74.00 ms Pulmonary Valve PV Peak Velocity 69.00 (50-150 cm/s) Tricuspid Valve TR P. Velocity 286.00 cm/s RAP Estimate 10.00 mmHg RVSP 42.70 mmHg Left Ventricle Left atrium is normal size, left ventricle is normal size, there is no concentric left ventricular hypertrophy, estimated ejection fraction 55% with no regional wall motion abnormality, diastolic parameters are inconclusive. Right Ventricle Right atrium and right ventricle are normal size and contractility. Aortic Valve Aortic valve is grossly normal there is no aortic stenosis or aortic insufficiency. Mitral Valve Mitral valve grossly normal, there is trace mitral regurgitation. Tricuspid Valve Tricuspid grossly normal, there is trace tricuspid regurgitation, tricuspid regurgitation jet velocity is inadequate for calculation of the right ventricular systolic pressure. Pulmonic Valve Pulmonic valve is poorly visualized. Great Vessels Aortic root is normal size. Inferior vena cava is normal size with normal inspiratory collapse. Pericardium No significant pericardial effusion noted. Conclusion 1. Normal left ventricular size, preserved left ventricular systolic function, estimated ejection fraction 55% with no regional wall motion abnormality, diastolic parameters are inconclusive. 3. Trace mitral and tricuspid regurgitation. 3. No significant pericardial effusion noted. 4. Inferior vena cava normal size with normal inspiratory collapse. Electronically signed by : Johann Fountain MD 04/30/2022 14:30:19
--- NOTE | 2022-04-30 12:49 | CA_ITS ---
APPROVED REPORT Exam: Exercise Treadmill Technologist: Joelle Doran Ht: 5 ft 3 in Wt: 156 lbs BSA: 1.74 m2 HR: 63 bpm BP: 113/68 mmHg Medical History Medications: Albuterol,,,,, DulOXETINE,,,,, AbATACEPT,,,,, Stress Test Details Test: Chris HR Resting HR: 74 bpm Max Heart Rate (APMHR): 181 bpm Max HR Achieved: 180 bpm Target HR (85% APMHR): 153 bpm % of APMHR: 99 Recovery HR: 70 bpm BP Resting BP: 114.0/71.0 mmHg Max BP: 130.0/90.0 mmHg Recovery BP: 116.0/73.0 mmHg ECG Clinical Exercise duration: 06:20 min Highest Stage Achieved: Exercise capacity: 7.0 METs Stress ECG Conclusion Gxt stopped due to chest pain. Symptoms: Chest pain/Shortness of air/Pain radiated to left side of neck Arrhythmias/Ectopy: Occasional PAC Excessive baseline artifact present throughout the study, EKG with exercise is not interpretable and nondiagnostic. Test Summary Stage 3 00:20 14.0 3.4 111 . . . . REST . . . . . . . Standing REST 06:01 0.0 0.0 74 . 114/ 71 . . Stage 1 01:00 10.0 1.7 96 . . . . Stage 1 02:00 10.0 1.7 95 . 122/ 81 . . Stage 1 03:00 10.0 1.7 101 . 122/ 81 . . Stage 2 01:00 12.0 2.5 103 . . . . Stage 2 02:00 12.0 2.5 95 . 130/ 90 . . Stage 2 03:00 12.0 2.5 180 . 130/ 90 . . Stage 3 00:20 14.0 3.4 111 . . . Stop exercise at 06:20 RECOVERY 01:00 0.0 0.0 101 . 130/ 92 . . RECOVERY 02:00 0.0 0.0 72 . 129/ 76 . . RECOVERY 03:00 0.0 0.0 70 . 116/ 73 . . RECOVERY 03:09 0.0 0.0 72 . 116/ 73 . . Electronically signed by : Johann Fountain MD 04/30/2022 17:31:24
--- NOTE | 2022-04-30 13:19 | XR_ITS ---
FINAL REPORT CLINICAL HISTORY: dyspnea COMPARISON: February 06, 2022 FINDINGS: Two views of the chest were obtained. The heart size and pulmonary vascularity are within normal limits. The mediastinum is normal. There is mild right lung base scarring or atelectasis. There is no pneumothorax. The bony thorax is intact. IMPRESSION: Mild right lung base atelectasis or scarring. Reviewed, Interpreted and Dictated by Ariel Wyatt III, MD Transcribed by Maliha Sherman Authenticated and [facility]
== END ==
PROVIDERS: PCP Family Medicine; Visit Provider Nurse Practitioner
DX: R06.02 Shortness of breath (principal); R07.89 Other chest pain; Z72.0 Tobacco use
CPT/HCPCS: 71046; 93017; 93306

== ENCOUNTER → 2022-05-09 15:02 | Outpatient (CLI) | payer BC, SELFPAY | PROVIDERS: PCP Family Medicine; Visit Provider Physician Assistant | DX: R07.81 Pleurodynia (principal); R06.02 Shortness of breath; R07.89 Other chest pain; I31.3 Pericardial effusion (noninflammatory); Z72.0 Tobacco use | CPT/HCPCS: 93225 ==

== ENCOUNTER → 2022-06-06 07:44 | Outpatient (CLI) | payer BC, SELFPAY ==
--- NOTE | 2022-06-06 | CA_ITS ---
APPROVED REPORT Exam: Pharmacologic Technologist: Joelle Doran, Ht: 5 ft 3 in Wt: 155 lbs BSA: 1.74 m2 HR: 61 bpm BP: 120/76 mmHg Rhythm: NSR, low voltage QRS Medical History Medical History: HTN, Hyperlipidemia Medications: Albuterol,,,,, Cymbalta,,,,, ORencia,,,,, Cardiac Risk Factors: HTN, Hyperlipidemia, , Smoking Stress Test Details Test: LEXISCAN HR Resting HR: 65 bpm Max Heart Rate (APMHR): 181.136514 bpm Max HR Achieved: 83 bpm Target HR (85% APMHR): 153.858006 bpm % of APMHR: 45.86 Recovery HR: 63 bpm BP Resting BP: 120/76 mmHg Max BP: 121/72 mmHg Recovery BP: 109.0/71.0 mmHg ECG Resting ECG: NSR, low voltage QRS Clinical Exercise duration: 04:00 min Highest Stage Achieved: Stress ECG Conclusion During lexiscan pt experinced no symptoms. No arrhythmias noted. No significant ST changes. Unremarkable lexiscan stress. Myoview images reported separately. Test Summary REST . . . . . . . Sitting REST 02:51 . . 65 . 120/ 76 . . Stage 1 01:00 . . 81 . . . . Stage 2 01:00 . . 69 . 116/ 73 . . Stage 3 01:00 . . 64 . 115/ 65 . . Stage 4 01:00 . . 70 . 112/ 71 . Stop exercise at 04:00 RECOVERY 01:00 . . 77 . 109/ 71 . . RECOVERY 02:00 . . 71 . 109/ 71 . . RECOVERY 03:00 . . 67 . 121/ 72 . . RECOVERY 03:13 . . 66 . 121/ 72 . . Electronically signed by : Johann Fountain MD 06/06/2022 17:57:09
--- NOTE | 2022-06-06 07:44 | NM_ITS ---
APPROVED REPORT Exam: Nuclear Stress Test Indication: C.P., SOB, TOB USE Patient Location: Outpatient Stress Tech: Joelle Doran NM Tech:Hiral Peralta AILYNRosenda RT (R)(N)(M) Ht: 5 ft 3 in Wt: 150 lbs Bra Size: 38C HR: 65 bpm BP: 120/76 mmHg BSA: 1.71 m2 TID: 1.14 BMI: 26.5 History: C.P., SOB, TOB USE Procedure: Patient received a 0.4 mg of intravenous Lexiscan, resting heart rate 65 bpm, resting blood pressure 120/76 mmHg, with Lexiscan maximum heart rate achived was 81 bpm which is Less than 85 % of the maximum predicted heart rate and blood pressure was 116/73 mmHg. With Lexiscan, patient denied any complaint of chest pain. Electrocardiogram Resting electrocardiogram shows sinus rhythm, with Lexiscan there is less than 1.[address] segment depression noted from the baseline EKG. The EKG portion of the Lexiscan is nondiagnostic. Cardiac Stress and Resting SPECT Images: Cardiac Stress and Resting SPECT images were obtained using technetium 99m Myoview 32.7 mCi stress and 10.66 mCi at rest. Gated SPECT analysis of segmental wall motion and calculation of the ejection fraction also done. Cardiac stress and rest SPECT images show uniform myocardial activity without segmental perfusion abnormality, computer derived ejection fraction is 60% with no regional wall motion abnormality, right ventricle is normal size and contractility. Conclusion: 1. The EKG portion of the Lexiscan is nondiagnostic. 2. No scintigraphic evidence of reversible ischemia seen, compared to ejection fraction 60% with no regional wall motion abnormality, right ventricle is normal size and contractility. 3. Normal Lexiscan Myoview study. Electronically signed by : Johann Fountain MD 06/06/2022 17:59:59
== END ==
PROVIDERS: PCP Family Medicine; Visit Provider Nurse Practitioner
DX: R06.02 Shortness of breath (principal); R07.89 Other chest pain; Z72.0 Tobacco use
CPT/HCPCS: 78452; 93017; A9502; J2785

== ENCOUNTER → 2022-09-05 07:20 | Outpatient (CLI) | payer BC, SELFPAY ==
--- NOTE | 2022-09-05 07:21 | CT_ITS ---
FINAL REPORT CLINICAL HISTORY: cp/dyspnea/pleural effusion COMPARISON: December and February 2022 FINDINGS: Axial images were obtained from the lung apex to the mid abdomen by computed tomography. Coronal reformatted images were obtained. This study was performed with techniques to keep radiation doses as low as reasonably achievable, (ALARA). Individualized dose reduction techniques using automated exposure control or adjustment of mA and/or kV according to the patient's size were employed. There is no axillary adenopathy. Multiple mildly enlarged mediastinal lymph nodes are nonspecific and stable. Heart size is normal. There is no pericardial or pleural effusion. A normal gallbladder is not identified and may be collapsed and calcified or surgically absent. There is mild scarring/fibrosis. Patchy ground-glass opacities are greatest in the lung bases and partially improved. IMPRESSION: Partially improved patchy ground-glass opacities are worrisome for alveolitis or persistent multifocal pneumonia. Reviewed, Interpreted and Dictated by Ariel Wyatt III, MD Transcribed by Bonilla Arambula Authenticated and [facility]
--- NOTE | 2022-09-05 07:34 | CA_ITS ---
APPROVED REPORT EXAM: Comprehensive 2D, Doppler, and color-flow Echocardiogram Applications Systems Engineer: Anai Carmona RDCS Ht: 5 ft 3 in Wt: 154lbs BSA: 1.73 BP: 112/73 mmHg Indications: CP 2D Dimensions LVOT 1.76 cm (M/F) 1.5-2.5 M-Mode Dimensions RVDd 2.40 cm (0.9-2.6) LA Diam 2.73 cm (1.9-4.0) LVDd 5.15 cm (3.5-5.7) Ao Diam 3.39 cm (2.0-3.7) LVDs 3.74 cm (3.5-5.7) IVSd 0.75 cm (0.6-1.1) PWd 0.75 cm (0.6-1.1) EF (Teich) 52.90% FS 27.40% EDV (Teich) 126.60 mL TAPSE 1.45 (<1.7) ESV (Teich) 59.60 mL LV Diastology E Decel Time 160.00 (160-240 msec) E/A Ratio 1.2 MED E' 7.60 (< 7 cm/sec) E'/MED E' Ratio 4.59 (>14) LAT E' 10.80 (<10 cm/sec) E/LAT E' Ratio 3.23 (>14) Mitral Valve MV E Max Kamlesh. 35.00 (40-130 cm/s) MV A Velocity 30.00 (40-130 cm/s) E/A Ratio 1.16 MV Decel. Time 160.00 (160-240 ms) MV PHT 47.00 ms Tricuspid Valve TR P. Velocity 222.00 cm/s RAP Estimate 10.00 mmHg RVSP 29.70 mmHg Left Ventricle Left atrium is normal size, left ventricle is normal size, there is no concentric left ventricular hypertrophy, estimated ejection fraction 55% with no regional wall motion abnormality, diastolic parameters are within normal range. Right Ventricle Right atrium and right ventricle are normal size and contractility. Aortic Valve Aortic valve is grossly normal, there is no aortic stenosis or aortic insufficiency. Mitral Valve Mitral valve grossly normal. There is trace mitral regurgitation. Tricuspid Valve Tricuspid valve is grossly normal, there is trace tricuspid regurgitation Pulmonic Valve Pulmonic valve is poorly visualized. Great Vessels Aortic root is normal size. Inferior vena cava normal size with normal respiratory collapse. Pericardium No significant pericardial effusion noted. Conclusion 1. Normal left ventricular size preserved left ventricular systolic function, estimated ejection fraction 55% with no regional wall motion abnormality, diastolic parameters are within normal range. 2. Trace mitral and tricuspid regurgitation. 3. No significant pericardial effusion noted. 4. Inferior vena cava is normal size with normal inspiratory collapse. Electronically signed by : Johann Fountain MD 09/05/2022 21:23:06
== END ==
PROVIDERS: PCP Family Medicine; Visit Provider Nurse Practitioner
DX: R06.02 Shortness of breath (principal); R06.09 Other forms of dyspnea; R07.89 Other chest pain; R00.2 Palpitations; R42 Dizziness and giddiness; I30.9 Acute pericarditis, unspecified; I31.3 Pericardial effusion (noninflammatory); I31.4 Cardiac tamponade; J90 Pleural effusion, not elsewhere classified; R53.83 Other fatigue; R60.0 Localized edema
CPT/HCPCS: 71250; 93306

== ENCOUNTER 2022-09-17 10:28 | Day surgery (SDC) | payer BC, SELFPAY ==
[2022-09-13 14:09] VITALS: BMI 26.5
[2022-09-17] VITALS (9 sets, daily range): BP systolic 107–139; BP diastolic 66–97; PULSE 58–70; RESP 16–18; TEMP 36.1–36.6; O2SAT 93–100
--- NOTE | 2022-09-17 13:04 | EXP.ANES.CKL ---
PFSH PFS Medical History Abnormal PFT Anxiety Bronchitis Cardiac tamponade Depression Dyspnea on exertion Fibromyalgia History of COVID-19 History of rheumatoid arthritis ILD (interstitial lung disease) Surgical History History of arthroscopic knee surgery History of bronchoscopy History of hysterectomy History of lung biopsy History of myringotomy History of tonsillectomy Status post pericardiocentesis Family History Other Hyperlipidemia Hypertension Thyroid disorder Social History Smoking Status: Former smoker second hand exposure: No alcohol intake: never substance use type: denies use current occupational status: unemployed Travel in the last 8 weeks: None household members: spouse housing: house current occupation: [employer] current occupational exposures/hazards: No caffeine: Yes do you feel safe at home: Yes victim of physical abuse: No victim of emotional abuse: No victim of sexual abuse: No would you like helpful sources: No [facility] Anesthesia Checklist Patient Identification Patient Identification: Arm Band and Verbal (Name & ) Structural Data Admitted From: Home Planned Operative Procedure/s: Bronchoscopy Consent for Planned Operative Procedure(s) Verified: Yes NPO Status Verified Time NPO: 00:00 Additional verifications Anesthesia Reactions: No Hx Blood Transfusions: No Blood Transfusion Reaction: No Airway Assessment C-Spine Mobility Assessed: Yes TMJ Mobility Assessed: Yes Dentition: Edentulous Neurological Assessment Level of Consciousness: Awake Hx Seizures: No Numbness or tingling in extremities: No Anesthesia Plan Anesthesia Risk discussed: Yes Anesthesia Plan: Verified ASA Class: III Anesthesia Type: General
--- NOTE | 2022-09-17 14:51 | XR_ITS ---
FINAL REPORT CLINICAL HISTORY: BRONCH WITH BIOPSY OF RIGHT LUNG IN OR FINDINGS: FLUORO TIME PROCEDURE: Fluoroscopy in the operating room. FINDINGS: Fluoroscopy time was provided by the radiology department for the clinical service. One spot film was obtained. Fluoroscopy exposure time: 1.38 minutes IMPRESSION: See above Reviewed, Interpreted and Dictated by Isauro Mckeon MD Transcribed by Maliha Sherman Authenticated and [facility]
--- NOTE | 2022-09-17 14:56 | EXP.BRONCH.N ---
Procedure: Date: 09/17/22 Patient Date of :: 1980 Procedure Performed:: Bronchoscopy airway examination, alveolar lavage and transbronchial lung Indications:: Atypical pneumonia, interstitial lung disease Performing Provider:: Gini Whitney MD Referring Provider:: Dr:Arun Godfrey MD Sedation:: General anesthesia Procedure:: Bronchoscopy airway examination, bronchoalveolar lavage and transbronchial lung biopsy: A clean DIAGNOSTIC bronchoscopy was advanced through the ET tube and airways were examined up to subsegmental bronchi. Airways appeared grossly normal, no evidence of mucoid secretions, mucous plugging active bleeding/old blood clots noted. Bronchoalveolar lavage was performed in the RIGHT MIDDLE LOBE with instillation of 60 cc normal saline with return of clear 40 cc back. BAL fluid was sent for cell count and differential along with bacterial fungal and AFB stain and cultures and cytopathologic examination Transbronchial biopsy was performed in the RIGHT MIDDLE LOBE with a total of 7 biopsies performed, 5 biopsy specimens were sent in formalin for cytopathologic examination. The other 2 biopsy samples, were sent one each in two separate normal saline specimen cups for bacterial fungal and AFB stain cultures. Special request was also made for the pathologist to evaluate for AFB and fungal organisms on the cytopathologic examination. Patient tolerated the procedure with no acute complications. We will follow the patient in pulmonary clinic in 7 to 10 days. Findings:: Please see the procedure note Recommendations:: Please see the procedure note. Complications:: No acute immediate complication Estimated blood obtained (mL): 5
--- NOTE | 2022-09-17 15:10 | XR_ITS ---
FINAL REPORT TECHNIQUE: Single view chest CLINICAL HISTORY: surgery, post bronch COMPARISON: 09/05/2022 FINDINGS: A single view of the chest was obtained. The heart is mildly enlarged. Patchy airspace opacity is seen in the right lung base. There is linear atelectasis at the left lung base. There is no pneumothorax. Osseous structures are unremarkable. IMPRESSION: New, patchy airspace opacity the right lung base consistent with acute pneumonia. Reviewed, Interpreted and Dictated by Isauro Mckoen MD Transcribed by Mora White Authenticated and [facility]
--- NOTE | 2022-09-18 07:55 | P.PNANES_ITS ---
[facility] Anesthesia Record Part II Anesthesia Record Part II Discharge Time: 15:50 Destination: Surgical Day Care (OP Surgery) PACU nurse assessment reviewed?: Yes Patient Condition:: Good Anesthesia Complications:: None Swallowing reflex intact?: Yes Cyanosis?: No Blood Pressure: 135/97 Pulse Rate: 65 Temperature: 97.9 F Mental Status: Alert & Oriented Pain level:: 0 Nausea and/or vomitting:: None Intake, IV Amount: 500
[2022-09-18 07:58] VITALS: BP 135/97; PULSE 65; TEMP 36.6
== END 2022-09-17 16:10 | disposition home or self-care (01) ==
PROVIDERS: PCP Family Medicine; Visit Provider Internal Medicine Pulmonary Disease
PROC: (CPT 31624; principal; 2022-09-17 11:45)
DX: J18.9 Pneumonia, unspecified organism (principal); J84.9 Interstitial pulmonary disease, unspecified; R06.09 Other forms of dyspnea; Z79.899 Other long term (current) drug therapy
CPT/HCPCS: 31624; 31628; 71045; 76000; 87070; 87077; 87102; 87116; 87186; 87205; 87206; 88112; 88305; 88312; 89051; J0330; J2405

== ENCOUNTER → 2022-10-22 10:07 | Outpatient (CLI) | payer BC, SELFPAY ==
--- NOTE | 2022-10-22 10:08 | NM_ITS ---
FINAL REPORT TECHNIQUE: The patient was injected with 8.25 mCi of technetium 99m MAA. 36 mCi of aerosolized DTPA was utilized for ventilation. Images of the lungs were obtained in multiple projections. CLINICAL HISTORY: SOA, RECURRENT PNEUMONIA 10:15AM 36.0 MCI TC DTPA 10:50AM 8.25 MCI TC MAA FINDINGS: No segmental or subsegmental perfusion defect identified. There is no significant ventilation abnormality. IMPRESSION: Unremarkable lung perfusion/ventilation scan. No evidence of pulmonary embolism. Reviewed, Interpreted and Dictated by Ariel Wyatt III, MD Transcribed by Crissy Pulliam Authenticated and [facility]
== END ==
PROVIDERS: PCP Family Medicine; Visit Provider Internal Medicine Pulmonary Disease
DX: R94.2 Abnormal results of pulmonary function studies (principal); R06.02 Shortness of breath
CPT/HCPCS: 78582; A9540; A9567

== ENCOUNTER 2023-02-02 21:04 | Emergency (ER) | payer BC, SELFPAY ==
--- NOTE | 2023-02-02 21:02 | ECG_ITS ---
APPROVED REPORT Exam: Resting ECG HR:93 bpm ECG Measurements Heart Rate 93 AXES DC 145 P 52 QRSd 104 QRS 28 QT 335 T 47 QTc 386 Conclusion SINUS RHYTHM POSSIBLE INFERIOR MYOCARDIAL INFARCTION , PROBABLY OLD [30 ms Q WAVE IN II/aVF] BORDERLINE ECG UNCONFIRMED REPORT Electronically signed by : Adam Cleveland MD 02/03/2023 15:43:41
[2023-02-02 21:04] VITALS: BP 117/59; PULSE 109; RESP 26; TEMP 37.6; O2SAT 100; BMI 26.5
[2023-02-02 21:26] VITALS: BMI 26.5
--- NOTE | 2023-02-02 21:28 | XR_ITS ---
PROCEDURE INFORMATION: Exam: XR Chest Exam date and time: 02/02/2023 10:06 PM Age: 42 years old Clinical indication: Cough; Additional info: Cough, fever TECHNIQUE: Imaging protocol: Radiologic exam of the chest. Views: 2 views. COMPARISON: CR XR CHEST PORTABLE 09/17/2022 3:11 PM FINDINGS: Lungs: Faint patchy airspace opacification of right middle lobe and lingular segment. Pleural spaces: Unremarkable. No pleural effusion. No pneumothorax. Heart/Mediastinum: Unremarkable. No cardiomegaly. Bones/joints: Unremarkable. IMPRESSION: Bilateral infiltration.
--- NOTE | 2023-02-02 21:28 | CT_ITS ---
PROCEDURE INFORMATION: Exam: CT Abdomen And Pelvis With Contrast Exam date and time: 02/02/2023 10:10 PM Age: 42 years old Clinical indication: Abdominal pain; Additional info: Abd pain, fever, n/v/d TECHNIQUE: Imaging protocol: Computed tomography of the abdomen and pelvis with contrast. 3D rendering (Not supervised by radiologist): MIP and/or 3D reconstructed images were created by the technologist. Radiation optimization: All CT scans at this facility use at least one of these dose optimization techniques: automated exposure control; mA and/or kV adjustment per patient size (includes targeted exams where dose is matched to clinical indication); or iterative reconstruction. Contrast material: ISOVUE; Contrast volume: 75 ml; Contrast route: IV; REPORTING DATA: Count of CT and Cardiac NM exams in prior 12 months: This patient has received 3 known CTs and 0 known cardiac nuclear medicine studies in the 12 months prior to the current study. COMPARISON: ABDPELW CT abdomen pelvis w con 11/28/2018 12:30 PM FINDINGS: Liver: Fatty liver infiltration. No mass. Gallbladder and bile ducts: Surgically absent. Pancreas: Normal. No ductal dilation. Spleen: Normal. No splenomegaly. Adrenal glands: Normal. No mass. Kidneys and ureters: Normal. No hydronephrosis. Stomach and bowel: Unremarkable. No obstruction. No mucosal thickening. Appendix: No evidence of appendicitis. Intraperitoneal space: Unremarkable. No free air. No significant fluid collection. Vasculature: Unremarkable. No abdominal aortic aneurysm. Lymph nodes: Unremarkable. No enlarged lymph nodes. Urinary bladder: Unremarkable as visualized. Reproductive: Unremarkable as visualized. Bones/joints: Unremarkable. No acute fracture. Soft tissues: Unremarkable. IMPRESSION: Fatty liver infiltration. Otherwise unremarkable study.
[2023-02-02 21:31] VITALS: BP 70/37; PULSE 93; RESP 18; O2SAT 99
[2023-02-02 21:39] LABS: Basophils % 0.3 % (0.1-2.0); Eosinophils # 0.1 K/mm3 (0.0-0.4); Eosinophils % 0.9 % (0.1-12.0); Hematocrit 43.2 % (37.0-47.0); Hemoglobin 13.8 g/dL (12.2-16.2); Lymphocytes % 9.1 % (10-50); Mean Corpuscular HGB Conc 31.9 g/dL (31.8-35.4); Mean Corpuscular Hemoglobin 28.9 pg (27.0-31.2); Mean Corpuscular Volume 90.5 fl (81-99); Mean Platelet Volume 8.8 fl (7.4-10.4); Monocytes # 0.2 K/mm3 (0.1-1.0); Monocytes % 2.2 % (1.7-9.3); Neutrophils # 9.4 K/mm3 (1.8-7.8); Neutrophils % 87.5 % (37.0-80.0); Platelet Count 378 K/mm3 (142-424); Red Blood Count 4.77 M/mm3 (4.20-5.40); Red Cell Distribution Width 14.7 % (11.5-17.5); White Blood Count 10.7 K/mm3 (4.8-10.8)
[2023-02-02 21:42] LABS: MANUAL DIFFERENTIAL MANUAL DIFFERENTIAL (MANUAL DIFF)
[2023-02-02 21:43] LABS: Alanine Aminotransferase 36 U/L (12-78); Albumin Level 4.7 g/dl (3.5-5.0); Alkaline Phosphatase 96 U/L (38-126); Anion Gap 9.7 mEq/L (5-15); Aspartate Amino Transferase 40 U/L (14-36); Bilirubin,Indirect 0.7 mg/dL (0.0-0.9); Bilirubin,Total 0.7 mg/dl (0.2-1.3); Bilirubin,Unconjugated 0.7 mg/dL (0.0-1.1); Blood Urea Nitrogen 6 mg/dl (7-17); Calcium 9.1 mg/dl (8.4-10.2); Carbon Dioxide 27 mmol/L (22.0-30.0); Chloride 100 mmol/L (98-107); Creatinine Clearance Estimated 89 mL/min (50-200); Estimated Glomerular Filt Rate 69 ml/min (>60); GFR (African American) 84 ML/MIN (>60); Glucose 115 mg/dl (74-100); Magnesium 2.1 mg/dl (1.6-2.3); Potassium 3.7 mmoL/L (3.5-5.1); Sodium 133 mmol/L (136-145)
[2023-02-02 21:45] LABS: Creatine Kinase 84 U/L (30-135)
--- NOTE | 2023-02-02 21:45 | CT_ITS ---
PROCEDURE INFORMATION: Exam: CTA Chest With Contrast Exam date and time: 02/02/2023 10:10 PM Age: 42 years old Clinical indication: Shortness of breath; Additional info: SOA, mid sternal pain TECHNIQUE: Imaging protocol: Computed tomographic angiography of the chest with contrast. 3D rendering (Not supervised by radiologist): MIP and/or 3D reconstructed images were created by the technologist. Radiation optimization: All CT scans at this facility use at least one of these dose optimization techniques: automated exposure control; mA and/or kV adjustment per patient size (includes targeted exams where dose is matched to clinical indication); or iterative reconstruction. Contrast material: ISOVUE; Contrast volume: 75 ml; Contrast route: INTRAVENOUS (IV); REPORTING DATA: Count of CT and Cardiac NM exams in prior 12 months: This patient has received 3 known CTs and 0 known cardiac nuclear medicine studies in the 12 months prior to the current study. COMPARISON: CT ANGIO CHEST PE PROTOCOL 02/06/2022 8:45 PM FINDINGS: Pulmonary arteries: Normal. No pulmonary emboli. Aorta: Unremarkable. No aortic aneurysm. No aortic dissection. Lungs: Mild interstitial prominence. No consolidation. Pleural spaces: Unremarkable. No pneumothorax. No pleural effusion. Heart: Unremarkable. No cardiomegaly. No pericardial effusion. Lymph nodes: Unremarkable. No enlarged lymph nodes. Bones/joints: Unremarkable. No acute fracture. Soft tissues: Unremarkable. IMPRESSION: 1. No central or segmental pulmonary embolism by CT criteria. 2. Interstitial prominence suspicious . Query symptoms of mild pulmonary congestion.
[2023-02-02 21:49] LABS: C-Reactive Protein 12.9 mg/L (0-4)
--- NOTE | 2023-02-02 21:51 | HMH.EDGENADL ---
Discharge Plan Disposition Patient Disposition: Home, Self-Care Prescriptions Prescriptions: New ondansetron HCl 4 mg Tablet 4 mg PO Q8H PRN (Reason: Nausea) Qty: 10 0RF No Action Orencia 125 mg/mL syringe 125 mg SQ WEEKLY aspirin [Adult Low Dose Aspirin] 81 mg tablet,delayed release (DR/EC) 81 mg PO DAILY Qty: 90 1RF metoprolol succinate [Toprol XL] 25 mg tablet extended release 24 hr 25 mg PO DAILY Qty: 90 1RF ranolazine [Ranexa] 500 mg tablet extended release 12 hr 500 mg PO BID Qty: 90 1RF albuterol sulfate 90 mcg/actuation HFA aerosol inhaler 2 inh INHALATION Q6 PRN (Reason: Shortness Of Breath Or Wheezing) Qty: 8.5 12RF budesonide-formoterol [Symbicort] 160-4.5 mcg/actuation HFA aerosol inhaler 2 puff inhalation BID Referrals Follow up/Referrals: Arun Pond MD [Primary Care Provider] - See instructions Clinical Impressions Clinical Impression: Gastroenteritis Instructions Patient Instructions: DI for Vomiting -- Adult Discharge ED Provider: Frieda (ED)Alexis General Adult HPI General Chief complaint: PAIN Stated complaint: SOA Time Seen by Provider: 02/02/23 21:15 Mode of Arrival: Family Vehicle Source of Information: Patient and Medical Record Limitations: No Limitations Description of Symptoms (Recalled from ER Triage Doc. by RN): Pt c/o pain in epigastric region & all over abd. Pt reports it is sharply jumping to areas of her ABD. She also c/o cough, fever, elevated HR, low sat (90-92%) at home, fever, n/v/d, and weakness. Pt also states I think I have been blacking out at home . She reports her HR has been intermittently elevated for weeks. However the other symtoms began 1-2 days ago and have increasingly worsened. Pt reports she has a hx of pericarditis and lung issues that she sees Dr. Whitney. History of Present Illness HPI narrative: pt reports abd pain with diarrhea and alos has cough and fever over the last few days - pt reports having pericarditis and pul issues and followed by card and pul Onset (ago): day(s) Location: abdomen and pelvis Severity: moderate Quality: sharp Consistency: intermittent Associated symptoms: fever/chills Treatments prior to arrival: none Related Data Home Medications Medication Instructions Recorded Confirmed abatacept 125 mg/mL subcutaneous 125 mg SQ WEEKLY RA 02/22/22 12/13/22 syringe (Orencia) budesonide-formoterol HFA 160 2 puff inhalation BID Asthma 09/13/22 12/13/22 mcg-4.5 mcg/actuation aerosol inhaler (Symbicort) Previous Rx's Medication Instructions Recorded albuterol sulfate 90 mcg/actuation 2 inh inhalation Q6 PRN Shortness 09/25/22 aerosol inhaler Of Breath Or Wheezing #8.5 grams aspirin 81 mg tablet,delayed 81 mg PO DAILY heart health #90 12/13/22 release (Adult Low Dose Aspirin) tabs metoprolol succinate 25 mg 25 mg PO DAILY High blood pressure 12/13/22 tablet,extended release 24 hr #90 tabs (Toprol XL) ranolazine 500 mg tablet,extended 500 mg PO BID cardiac issues #90 12/13/22 release,12 hr (Ranexa) tabs ondansetron HCl 4 mg tablet 4 mg PO Q8H PRN Nausea #10 tabs 02/03/23 Allergies Allergy/AdvReac Type Severity Reaction Status Date / Time etanercept [From Enbrel] Allergy Intermediate Verified 12/13/22 10:49 [facility] Disclaimer: The information contained in this section may have been updated after the patient was seen, as this information can be updated by other users. Medical History Abnormal PFT Acute bacterial sinusitis Anxiety Bronchitis Cardiac tamponade Decreased diffusion capacity of lung Depression Dyspnea on exertion Fibromyalgia History of COVID-19 History of rheumatoid arthritis ILD (interstitial lung disease) ILD (interstitial lung disease) Surgical History History of arthroscopic knee surgery History of bronchoscopy History of hystere
[2023-02-02 21:58] LABS: Troponin I < 0.01 ng/ml (0.00-0.034)
[2023-02-02 22:03] LABS: Procalcitonin 0.081 ng/mL (0.0-2.0)
[2023-02-02 22:11] LABS: Erythrocyte Sedimentation Rate 20 mm/hr (0-20)
[2023-02-02 22:15] LABS: Eosinophils % 1 % (0-3); Lymphocytes % 7 % (10-50); Monocytes % 1 % (2-9); Neutrophils % 91 % (42-76); Platelet Estimate Normal; RBC Morphology Normal; Total Cells Counted 100
[2023-02-02 22:30] VITALS: BP 93/50; PULSE 89; RESP 20; O2SAT 100
[2023-02-02 23:00] VITALS: BP 82/56; PULSE 84; RESP 22; O2SAT 96
[2023-02-02 23:30] VITALS: BP 102/53; PULSE 79; RESP 20; O2SAT 97
[2023-02-03] VITALS (9 sets, daily range): BP systolic 91–127; BP diastolic 46–79; PULSE 64–90; RESP 16–20; TEMP 36.8; O2SAT 94–98
[2023-02-03 00:34] LABS: Lactic Acid 2.2 mmol/L (0.7-2.1)
[2023-02-03 01:12] LABS: Appearance,Urine CLEAR (Clear); Bilirubin,Urine Negative (Negative); Blood, Urine Negative (Negative); Color,Urine YELLOW (Yellow); Glucose,Urine (UA) Negative (Negative); Ketones,Urine Negative (Negative); Leukocyte Esterase,Urine Negative (Negative); Microscopic, Urine URINE MICROSCOPIC (MICROSCOPIC); Nitrate,Urine Negative (Negative); PH,Urine 8.5 (5.0-8.5); Protein,Urine Negative (Negative); Specific Gravity, Urine <= 1.005 (1.005-1.030); Urobilinogen,Urine 0.2 EU/dl (0.2)
[2023-02-03 01:23] LABS: Troponin I < 0.01 ng/ml (0.00-0.034)
[2023-02-03 01:28] LABS: Squamous Epithelial Cell,Urine Occasional #/hpf (0-5)
[2023-02-03 01:30] LABS: Coronavirus 19, PCR Not Detected (NotDetected); Influenza A, PCR Not Detected (NotDetected); Influenza B, PCR Not Detected (NotDetected)
--- NOTE | 2023-02-03 03:46 | PC.NURSE ---
lab notified of stool sample submitted for diarrhea panel. Also, that MD declined the need for a repeat lactic
[2023-02-03 03:49] LABS: Adenovirus F 40/41, stool Not Detected (NotDetected); Astrovirus Not Detected (NotDetected); Campylobacter Not Detected (NotDetected); Clostridium Difficile A/B, PCR Not Detected (NotDetected); Cryptosporidium Not Detected (NotDetected); Cyclospora Cayetanesis Not Detected (NotDetected); Entamoeba histolytica Not Detected (NotDetected); Enteroaggregative E coli Not Detected (NotDetected); Enteropathogenic E coli Not Detected (NotDetected); Enterotoxigenic E coli Not Detected (NotDetected); Giardia lamblia Not Detected (NotDetected); Plesimonas Shigalloides, PCR Not Detected (NotDetected); Rotavirus A Not Detected (NotDetected); Salmonella, PCR Not Detected (NotDetected); Sapovirus Not Detected (NotDetected); Shiga-like toxin E coli Not Detected (NotDetected); Shigella Enterovasive E coli Not Detected (NotDetected); Vibrio Cholerae Not Detected (NotDetected); Vibrio, PCR Not Detected (NotDetected); Yersinia Entercolitica, PCR Not Detected (NotDetected)
[2023-02-03 05:46] LABS: Norovirus Detected (NotDetected)
--- NOTE | 2023-02-03 08:14 | PC.NURSE ---
called and spoke with pt about lab results.
== END 2023-02-03 03:47 | disposition home or self-care (01) ==
PROVIDERS: Emergency Provider Emergency Medicine; PCP Family Medicine
DX: K52.9 Noninfective gastroenteritis and colitis, unspecified (principal)
CPT/HCPCS: 71046; 71275; 74177; 80048; 80076; 81001; 82550; 83605; 83735; 84145; 84484; 85007; 85025; 85651; 86140; 87040; 87507; 93005; 96360; 96374; 96375; 99285; C9803; J0131; J2405; Q9967; U0003; U0005

== ENCOUNTER → 2023-03-27 14:41 | Outpatient (POV) | payer BC, SELFPAY | PROVIDERS: Visit Provider Specialist/Technologist | DX: Z00.00 Encounter for general adult medical examination without abnormal findings (principal) ==

== ENCOUNTER → 2023-04-17 15:09 | Outpatient (CLI) | payer BC, SELFPAY ==
--- NOTE | 2023-04-17 15:10 | US_ITS ---
FINAL REPORT CLINICAL HISTORY: thyroid nodule COMPARISON: 04/01/2020 FINDINGS: Ultrasound of the thyroid gland: The right lobe of the thyroid measures 3.8 x 1 x 2 cm in size. There is a nodule present in the right lobe of the thyroid gland measuring 5 x 4 x 3 mm in size, solid, hypoechoic, and a TI-RADS 4 category nodule. This nodule is stable since the prior ultrasound of 2019. The left lobe of the thyroid gland measures 4 x 1 x 1.3 cm in size. There are 2 nodules visualized in the left thyroid gland, the larger measuring 5 x 5 x 4 mm in size, solid, hypoechoic, and a TI-RADS 4 category nodule. This nodule is also stable since the prior ultrasound of 2019, and is categorized as a TI-RADS 5 category nodule. The nodule is stable in size, however the calcification is new. The isthmus of the thyroid measures 0.35 cm and is unremarkable in appearance. IMPRESSION: Three nodules visualized in the thyroid gland, 1 on the right and 2 on the left, that were visualized on the previous ultrasound of 2019. The nodule on the left side which contains microcalcification is similar in size, however the calcification is new. Would recommend ultrasound follow-up in 12 months for further evaluation. Reviewed, Interpreted and Dictated by Ariel Wyatt III, MD Transcribed by Elma Choi Authenticated and [facility]
== END ==
PROVIDERS: PCP Family Medicine; Visit Provider Nurse Practitioner
DX: E04.2 Nontoxic multinodular goiter (principal)
CPT/HCPCS: 76536

== ENCOUNTER → 2023-04-17 16:03 | Outpatient (CLI) | payer BC, SELFPAY ==
[2023-04-17 17:06] LABS: Free T4 (Free Thyroxine) 1.54 ng/dl (0.78-2.19)
[2023-04-17 17:20] LABS: Thyroid Stimulating Hormone 1.32 uIU/mL (0.465-4.68)
== END ==
PROVIDERS: PCP Family Medicine; Visit Provider Nurse Practitioner
DX: E04.2 Nontoxic multinodular goiter (principal)
CPT/HCPCS: 36415; 84439; 84443

== ENCOUNTER 2023-05-18 23:59 | Emergency (ER) | payer BC, SELFPAY ==
[2023-05-19 00:01] VITALS: BP 132/88; PULSE 76; RESP 18; TEMP 36.8; O2SAT 98; BMI 28.3
[2023-05-19 00:21] VITALS: BMI 24.2
--- NOTE | 2023-05-19 00:22 | ECG_ITS ---
APPROVED REPORT Exam: Resting ECG HR:70 bpm ECG Measurements Heart Rate 70 AXES MD 170 P 55 QRSd 92 QRS 18 QT 387 T 55 QTc 408 Conclusion SINUS RHYTHM NORMAL ECG UNCONFIRMED REPORT Electronically signed by : Adam Cleveland MD 05/19/2023 06:57:39
--- NOTE | 2023-05-19 00:26 | PC.NURSE ---
Pt placed in paper gown. All suicide precautions in place.
[2023-05-19 00:30] LABS: Microscopic, Urine URINE MICROSCOPIC (MICROSCOPIC)
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
[2023-05-19 00:38] LABS: Basophils % 0.4 % (0.1-2.0); Eosinophils # 0.4 K/mm3 (0.0-0.4); Eosinophils % 4.7 % (0.1-12.0); Lymphocytes # 2.7 K/mm3 (0.7-4.5); Lymphocytes % 33.2 % (10-50); Mean Corpuscular HGB Conc 32.3 g/dL (31.8-35.4); Mean Corpuscular Hemoglobin 30.1 pg (27.0-31.2); Mean Platelet Volume 8.2 fl (7.4-10.4); Monocytes # 0.3 K/mm3 (0.1-1.0); Monocytes % 3.6 % (1.7-9.3); Neutrophils # 4.7 K/mm3 (1.8-7.8); Platelet Count 367 K/mm3 (142-424); Red Blood Count 3.98 M/mm3 (4.20-5.40); Red Cell Distribution Width 16.7 % (11.5-17.5); White Blood Count 8.1 K/mm3 (4.8-10.8)
[2023-05-19 00:38] LABS: Appearance,Urine CLEAR (Clear); Bilirubin,Urine Negative (Negative); Blood, Urine Negative (Negative); Color,Urine YELLOW (Yellow); Glucose,Urine (UA) Negative (Negative); Ketones,Urine Negative (Negative); Leukocyte Esterase,Urine 1+ (Negative); Nitrate,Urine Negative (Negative); PH,Urine 5.5 (5.0-8.5); Protein,Urine Negative (Negative); Specific Gravity, Urine <= 1.005 (1.005-1.030); Urobilinogen,Urine 0.2 EU/dl (0.2)
[2023-05-19 00:40] LABS: Chloride 106 mmol/L (98-107); Potassium 3.1 mmoL/L (3.5-5.1); Sodium 146 mmol/L (136-145)
[2023-05-19 00:41] LABS: Urine Pregnancy, HCG Qual. Negative (Negative)
[2023-05-19 00:42] LABS: Alanine Aminotransferase 39 U/L (12-78); Anion Gap 13.1 mEq/L (5-15); Aspartate Amino Transferase 42 U/L (14-36); Blood Urea Nitrogen 6 mg/dl (7-17); Carbon Dioxide 30 mmol/L (22.0-30.0); Creatinine Clearance Estimated 100 mL/min (50-200); Estimated Glomerular Filt Rate 79 ml/min (>60); Ethyl Alcohol 144 mg/dl (0-10); GFR (African American) 96 ML/MIN (>60)
[2023-05-19 00:43] LABS: Albumin Level 3.9 g/dl (3.5-5.0); Albumin/Globulin Ratio 1.2 (1.1-1.8); Alkaline Phosphatase 96 U/L (38-126); Bilirubin,Total 0.2 mg/dl (0.2-1.3); Globulin 3.2 g/dL (1.3-3.2); Glucose 105 mg/dl (74-100); Total Protein,Serum 7.1 g/dl (6.3-8.2)
[2023-05-19 00:44] LABS: Acetaminophen < 10 ug/ml (10-30); Salicylate < 1.0 mg/dL (2.0-20.0)
[2023-05-19 00:49] LABS: Bacteria,Urine Trace /lpf
[2023-05-19 00:51] LABS: Barbiturates Screen,Urine Negative ng/ml (<200); Benzodiazepines Screen,Urine Negative ng/ml (<200)
[2023-05-19 00:52] LABS: Amphetamine/Metha Screen,Urine Negative ng/ml (<1000); Cannabinoid Screen,Urine Negative ng/ml (<50)
[2023-05-19 00:53] LABS: Cocaine Screen,Urine Negative ng/ml (<300)
[2023-05-19 00:54] LABS: Methadone Screen,Urine Negative ng/ml (<300)
[2023-05-19 00:55] LABS: Opiate Screen,Urine Negative ng/ml (<300); Phencyclidine Screen,Urine Negative ng/ml (<25)
--- NOTE | 2023-05-19 01:18 | PC.NURSE ---
Rounded on pt. 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 No needs voiced by pt at this time.
--- NOTE | 2023-05-19 03:08 | PC.NURSE ---
on hold with [facility]
--- NOTE | 2023-05-19 03:34 | PC.NURSE ---
rn speaking with [facility] at this time-celestino nicole
--- NOTE | 2023-05-19 03:36 | PC.NURSE ---
waiting on [facility] for callback
--- NOTE | 2023-05-19 03:41 | PC.NURSE ---
received call from brunilda with the crisis unit
--- NOTE | 2023-05-19 03:49 | PC.NURSE ---
pt on the i pad with Ike polk [facility]
--- NOTE | 2023-05-19 03:59 | PC.NURSE ---
pt completed assessment. [facility]
--- NOTE | 2023-05-19 05:34 | PC.NURSE ---
Called dispatch to see if they had received paperwork from Kyler Huang. Advised they had received it and were sending it to the grounds keeper at this time.
--- NOTE | 2023-05-19 06:18 | PC.NURSE ---
spoke with Cathleen at dispatch. she was inquiring if it would be [facility] responsible to transport the pt because that is where the pt resides. I explained that we previously spoke with dispatch at 0534. at this time we were told that they would have a form signed by the bilingual administrative assistant and then would transport this pt. Cathleen reports she is going to have to make some calls to find out who would be able to transfer bc PD was unaware of a 72 hour hold. I further explained that it was a [facility] Judge signing off and were again, were told by someone in dispatch they would transfer.
--- NOTE | 2023-05-19 06:43 | PC.NURSE ---
PD arrived to transport pt
[2023-05-19 06:46] VITALS: BP 127/84; PULSE 83; RESP 16; TEMP 36.8
== END 2023-05-19 06:50 ==
PROVIDERS: Emergency Provider Emergency Medicine; PCP Family Medicine
DX: F41.9 Anxiety disorder, unspecified (principal); R45.851 Suicidal ideations; M06.9 Rheumatoid arthritis, unspecified; F32.A Depression, unspecified; J84.9 Interstitial pulmonary disease, unspecified; Z87.891 Personal history of nicotine dependence
CPT/HCPCS: 80053; 80305; 80329; 81001; 81025; 85025; 87086; 93005; 93041; 99285

== ENCOUNTER 2023-10-19 10:15 | Emergency (ER) | payer BC, SELFPAY ==
--- NOTE | 2023-10-19 11:16 | EXP.UTC ---
Discharge Plan Disposition Patient Disposition: Home, Self-Care Condition: Good Prescriptions Prescriptions: New amoxicillin [amoxicillin] 875 mg tablet 875 mg PO Q12H Qty: 20 0RF benzonatate [benzonatate] 100 mg capsule 100 mg PO TIDP PRN (Reason: Cough) Qty: 30 0RF methylprednisolone 4 mg Tablets,Dose Pack 4 mg PO DIRECTED Qty: 21 0RF No Action sertraline 100 mg tablet 100 mg PO DAILY Patient Comments: TAKE 1 AND 1/2 TABLETS ONCE DAILY FOR 15 DAYS THEN TAKE 2 TABLETS BY MOUTH ONCE DAILY cyclobenzaprine 5 mg tablet 5 mg PO DAILY Patient Comments: TAKE 1 TABLET BY MOUTH AT BEDTIME zolpidem 12.5 mg tablet,ext release multiphase 12.5 mg PO HS Patient Comments: TAKE 1 TABLET BY MOUTH AT BEDTIME Actemra 162 mg/0.9 mL syringe 162 mg SQ WEEKLY Referrals Follow up/Referrals: Arun Pond MD [Primary Care Provider] - See instructions Activity Restrictions/Add. Instructions Additional Instructions/Restrictions: Drink plenty of fluids. Take tylenol or ibuprofen for pain or fever. Take the medications as directed. Follow up with your regular doctor. GO TO THE ER FOR ANY WORSENING SYMPTOMS Place warm wet compresses to the swollen lymph node on your neck 3 to 4 times per day for the next few days. Clinical Impressions Clinical Impression: Pharyngitis, Cervical lymphadenopathy Instructions Patient Instructions: DI for Pharyngitis/Tonsillopharyngitis -- Adult, DI for Lymphadenopathy Discharge ED Provider: Jose Hayden [facility] General Stated complaint: congestion, sore throat, knot Time Seen by Provider: 10/19/23 11:16 History of Present Illness Provider Complaint: She states that she has had sore throat, ear pain, sinus and chest congestion for the past 3 days. She has a knot on the right side of her neck that is tender to touch that she first noticed yesterday. Related Data Home Medications Medication Instructions Recorded Confirmed cyclobenzaprine 5 mg tablet 5 mg PO DAILY 10/19/23 10/19/23 sertraline 100 mg tablet 100 mg PO DAILY 10/19/23 10/19/23 tocilizumab 162 mg/0.9 mL 162 mg SQ WEEKLY 10/19/23 10/19/23 subcutaneous syringe (Actemra) zolpidem 12.5 mg tablet,extended 12.5 mg PO HS 10/19/23 10/19/23 release,multiphase Previous Rx's Medication Instructions Recorded amoxicillin 875 mg tablet 875 mg PO Q12H #20 tabs 10/19/23 benzonatate 100 mg capsule 100 mg PO TIDP PRN Cough #30 caps 10/19/23 methylprednisolone 4 mg tablets in 4 mg PO DIRECTED #21 tabs 10/19/23 a dose pack Allergies Allergy/AdvReac Type Severity Reaction Status Date / Time etanercept [From Enbrel] Allergy Intermediate Verified 04/23/23 09:50 [facility] Disclaimer: The information contained in this section may have been updated after the patient was seen, as this information can be updated by other users. Medical History Abnormal PFT Acute bacterial sinusitis Anxiety Asthma Bronchitis Cardiac tamponade Decreased diffusion capacity of lung Depression Dyspnea on exertion Dyspnea on exertion Fibromyalgia Hearing loss History of COVID-19 History of rheumatoid arthritis ILD (interstitial lung disease) ILD (interstitial lung disease) ILD (interstitial lung disease) Impacted cerumen of right ear Retracted tympanic membrane Ruptured ear drum Tympanosclerosis Surgical History History of arthroscopic knee surgery History of bronchoscopy History of hysterectomy History of lung biopsy History of myringotomy History of tonsillectomy Status post pericardiocentesis Family History Other Hyperlipidemia Hypertension Thyroid disorder Social History Smoking Status: Former smoker tobacco type: cigarettes packs per day
[2023-10-19 11:20] VITALS: BP 103/78; PULSE 80; RESP 19; TEMP 36.7; O2SAT 99; BMI 26.9
[2023-10-19 11:28] LABS: UTC Strep Screen (Rapid) Negative (Negative)
[2023-10-19 11:40] VITALS: BP 103/78; PULSE 80; RESP 19; TEMP 36.7; O2SAT 99
== END 2023-10-19 11:42 | disposition home or self-care (01) ==
PROVIDERS: Emergency Provider Nurse Practitioner Family; PCP Family Medicine
DX: J02.9 Acute pharyngitis, unspecified (principal); R59.0 Localized enlarged lymph nodes; H92.09 Otalgia, unspecified ear; R09.81 Nasal congestion; R09.89 Other specified symptoms and signs involving the circulatory and respiratory systems; J84.9 Interstitial pulmonary disease, unspecified; J45.909 Unspecified asthma, uncomplicated; Z87.891 Personal history of nicotine dependence
CPT/HCPCS: 87880; 99204; 99212; G0463

== ENCOUNTER 2023-12-04 10:28 | Outpatient (CLI) | payer BC, SELFPAY ==
--- NOTE | 2023-12-04 10:41 | XR_ITS ---
FINAL REPORT CLINICAL HISTORY: CHEST WALL PAIN COMPARISON: None FINDINGS: There is no evidence of effusion or other pleural disease. The mediastinum has a normal appearance. Minimal scarring is present in the right lung base. The cardiac silhouette is unremarkable. IMPRESSION: No active disease. Reviewed, Interpreted and Dictated by Darin Sanders MD Transcribed by Elma Choi Authenticated and [facility]
== END 2023-12-04 23:59 ==
LOC: RAD 10:30
PROVIDERS: PCP Family Medicine; Visit Provider Family Medicine
DX: R07.1 Chest pain on breathing (principal)
CPT/HCPCS: 71046

== ENCOUNTER 2024-02-19 10:45 | Outpatient (CLI) | payer BC, SELFPAY ==
[2024-02-19 11:26] LABS: Basophils % 0.5 % (0.1-2.0); Eosinophils # 0.3 K/mm3 (0.0-0.4); Eosinophils % 6.4 % (0.1-12.0); Hematocrit 39.8 % (37.0-47.0); Hemoglobin 12.5 g/dL (12.2-16.2); Lymphocytes # 1.1 K/mm3 (0.7-4.5); Lymphocytes % 27.4 % (10-50); Mean Corpuscular HGB Conc 31.4 g/dL (31.8-35.4); Mean Corpuscular Hemoglobin 30.6 pg (27.0-31.2); Mean Corpuscular Volume 97.3 fl (81-99); Mean Platelet Volume 8.4 fl (7.4-10.4); Monocytes # 0.4 K/mm3 (0.1-1.0); Monocytes % 9.3 % (1.7-9.3); Neutrophils # 2.2 K/mm3 (1.8-7.8); Neutrophils % 56.4 % (37.0-80.0); Platelet Count 204 K/mm3 (142-424); Red Blood Count 4.09 M/mm3 (4.20-5.40); Red Cell Distribution Width 16.9 % (11.5-17.5)
[2024-02-19 12:15] LABS: Chloride 107 mmol/L (98-107); Potassium 4.6 mmoL/L (3.5-5.1); Sodium 141 mmol/L (136-145)
[2024-02-19 12:18] LABS: Alanine Aminotransferase 376 U/L (12-78); Albumin/Globulin Ratio 1.7 (1.1-1.8); Alkaline Phosphatase 55 U/L (38-126); Anion Gap 8.6 mEq/L (5-15); Aspartate Amino Transferase 132 U/L (14-36); Bilirubin,Total 0.6 mg/dl (0.2-1.3); Blood Urea Nitrogen 11 mg/dl (7-17); Calcium 9.7 mg/dl (8.4-10.2); Carbon Dioxide 30 mmol/L (22.0-30.0); Estimated Glomerular Filt Rate 79 ml/min (>60); GFR (African American) 96 ML/MIN (>60); Globulin 2.4 g/dL (1.3-3.2); Glucose 81 mg/dl (74-100); Total Protein,Serum 6.4 g/dl (6.3-8.2)
== END 2024-02-19 23:59 | disposition home or self-care (01) ==
LOC: LAB 10:46
PROVIDERS: PCP Nurse Practitioner; Visit Provider Internal Medicine
DX: Z79.899 Other long term (current) drug therapy (principal)
CPT/HCPCS: 36415; 80053; 85025

== ENCOUNTER 2024-03-27 11:05 | Outpatient (CLI) | payer BC, SELFPAY ==
--- OUTSIDE RECORDS SUMMARY | 2024-03-27 11:08 | XMS_ITS | Continuity of Care Document ---
Author Name Unknown Organization [facility] Address [address] [place] [id number] Phone Care Team Providers Care Olive Pitter Name Role Phone [place] MURGUIA Mike Unavailable Unavailable Allergies, Adverse Reactions, Alerts Substance Reaction Status Criticality etanercept Active No Information Medications Medication Instructions Dosage Effective Dates (start - stop) Status Comments Celebrex 200 mg capsule take 1 capsule by oral route 2 times every day as needed as needed 200 MG - Active gabapentin 800 mg tablet take 1 tablet by oral route 3 times every day 800 MG - Active duloxetine 60 mg capsule,delayed release take 1 capsule by oral route 2 times every day 60 MG - Active buspirone 10 mg tablet take 1 tablet by oral route 2 times every day 10 MG - Active Symbicort 160 mcg-4.5 mcg/actuation HFA aerosol inhaler inhale 2 puff by inhalation route 2 times every day in the morning and evening 2.00 puff - Active Incruse Ellipta 62.5 mcg/actuation powder for inhalation inhale 1 puff by inhalation route every day at the same time each day 62.5 MCG - Active Procedures Procedure Date Office Visit Level II TB AG RESPONSE T-CELL SUSP Office Visit Level V Chest X-ray 2 Views Drug Test Presumptive,any num,by inst Mey Office Visit Level IV Office Visit Level V Office Visit Level IV Office Visit Level V Office Visit Level IV Chest X-ray 2 Views Tb Cell Mediated Antign Respnse Gamma In Office Visit Level IV Therapeutic Prophylactic/Dx Injection Cha Methylprednisolone Acetate 80mg 019 Office Visit Level IV Radiologic Exam Spine/LumSac 2-3 Views S Office Visit Level IV Office Visit Level IV Office Visit Level IV Office Visit Level IV Actemra Infusion Actemra Infusion IV Infusion Therapy Up to 1 Hour 2017 Actemra Infusion Actemra Infusion IV Infusion Therapy Up to 1 Hour 2017 Office Visit Level IV Actemra Infusion Actemra Infusion IV Infusion Therapy Up to 1 Hour 2017 Actemra Infusion Actemra Infusion IV Infusion Therapy Up to 1 Hour 2017 Office Visit Level V Chest X-ray 2 Views Office Visit Level IV Office Visit Level IV Radiologic Exam Chest 2 View Front/Lat J Advance Directives Directive Yes / No Effective Date File Name No Information Encounters Encounter Description Practice Location Reason(s) For Visit Diagnoses Date Provider Providers Copied on Encounter [facility] [address], [place], [place], [id number], tel:[phone] [facility] No Information 2 [place] Mike. [address], [address], [place], [address]. tel:[phone] Office Visit Level II [facility] [address], [id number], tel:[phone] [facility] Follow Up of Rheumatoid Arthritis (chief complaint)F ibromyalgia Syndrome (chief complaint) RECURRENT INFECTIONSSe ropositive Rheumatoid ArthritisFib romyalgiaBod y mass index (BMI) 30.0-30.9, adultNSAID Group Home UseCurrent Use of Steroid MedicationOt her specified personal risk factors 1 Ltac, Located [facility]. [address], [facility] [address], [place], [address]. tel:[phone] Specialist: Suresh Baumann MD, [address] [facility] [address], [place], [address]. tel:[phone] ist: Liat Umanzor, [address] [facility] [address], [place], [address]. tel:[phone] ist: Lon Cedeno, [address], [place], [address]. tel:[phone] ist: Allen Gonzalez MD, [address] [facility] [address], [place], [address]. tel:[phone] ng Provider: Adam Dias, [address] [place] [address], [address]. tel:[phone] [facility] [address] [place] [address], [id number], tel:[phone] [facility] No Information 1 Ltac, Located [facility]. [address], [facility] [address], [place], [address]. tel:[phone] Referring Provider: Adam Dias, [address] [place] [address], [address]. tel:[phone] Office Visit Level V [facility] [address] [place] [address], [id number], [place] tel:[phone] [facility] Follow Up of Rheumatoid Arthritis (chief complaint)F ibromyalgia Syndrome (chief complaint) RECURRENT INFECTIONSSe ropositive Rheumatoid ArthritisFib romyalgiaEnc ounter for Monitoring Sulfasalazin e TherapyBody mass index (BMI) 30.0-30.9, adultNSAID Quality Assurance Monitor Chassis UseCurrent Use of Steroid MedicationOt her specified personal risk factorsOther fatiguePares thesias 1 Ltac, Located [facility]. [address] [place] [address] 100, [place], [address]. tel:[phone] Specialist: Suresh Baumann MD, [address] [facility] [address], [place], [address]. tel:[phone] ist: Liat Umanzor, [address] [facility] [address], [place], [address]. tel:[phone] ist: Lon Cedeno, [address], [place], [address]. tel:[phone] ng Provider: Adam Dias, [address] [place] [address] 1, [place], [address]. tel:[phone] [facility], [address] [place] [address], [id number], tel:[phone] [facility] No Information 1 Ltac, Located Within [facility]. [address] [place] [address] 100, [place], [address]. tel:[phone] Referring Provider: Adam Dias, [address] [place] [address] 1, [place], [address]. tel:[phone] Office Visit Level IV [facility], [address] [place] [address], [id number], [place] tel:[phone] [facility] Follow Up of Rheumatoid Arthritis (chief complaint)F ibromyalgia Syndrome (chief complaint) RECURRENT INFECTIONSSe ropositive Rheumatoid ArthritisFib romyalgiaEnc ounter for Monitoring Sulfasalazin e TherapyBody mass index (BMI) 30.0-30.9, adultNSAID Quality Assurance Monitor Chassis UseCurrent Use of Steroid MedicationOt her specified personal risk factors 0-202 1 Jeanmarie NON FERROUS MATERIAL HANDLER Richa. [address], [id number], . tel:[phone] Referring Provider: Adam Dias, [address] [place] [address], [address]. tel:[phone] Office Visit Level V [facility], [address] [place] [address], [id number], tel:[phone] [facility] Follow Up of Rheumatoid Arthritis (chief complaint)F ibromyalgia Syndrome (chief complaint) RECURRENT INFECTIONSSe ropositive Rheumatoid ArthritisFib romyalgiaBod y mass index (BMI) 30.0-30.9, adultNSAID Group Home UseCurrent Use of Steroid MedicationEn counter for Monitoring Sulfasalazin e TherapyOther specified personal risk factors 0 Connor Mike. [address] [facility] [address], [place], [address]. tel:[phone] Specialist: Suresh Baumann MD, [address] [facility] [address], [place], [address]. tel:[phone] ist: Liat Umnazor, [address] [facility] [address], [place], [address]. tel:[phone] ist: Lon Cedeno, [address], [place], [address]. tel:[phone] ng Provider: Adam Dias, [address] [place] [address] 1, [place], [address]. tel:[phone] Office Visit Level IV [facility], [address] [place] [address], [id number], [place] tel:[phone] [facility] Follow Up of Rheumatoid Arthritis (chief complaint)F ibromyalgia Syndrome (chief complaint) RECURRENT INFECTIONSSe ropositive Rheumatoid ArthritisFib romyalgiaOth er fatigueBody mass index (BMI) 30.0-30.9, adultNSAID Quality Assurance Monitor Chassis UseCurrent Use of Steroid Medication 0 Jolanta Funes. [address] [place] [address], [id number]. tel:[phone] Referring Provider: Adam Dias, [address] [address], [place], [address]. tel:[phone] Office Visit Level V [facility] [address] [place] [address], [id number], tel:[phone] [facility] No Information 0 Jeanmarie Chaudhry. [address] [place] [address], [id number], . tel:[phone] Referring Provider: Richa Vora, [address] [place] [address], [place], [address]. tel:[phone] [facility], [address] [place] [address], [id number], tel:[phone] [facility] Follow Up of Rheumatoid Arthritis (chief complaint)F ibromyalgia Syndrome (chief complaint) RECURRENT INFECTIONSSe ropositive Rheumatoid ArthritisFib romyalgiaOth er fatigueBody mass index (BMI) 30.0-30.9, adultNSAID Group Home UseCurrent Use of Steroid Medication 0 Jeanmarie Chaudhry. [address] [place] [address], [id number], . tel:[phone] Specialist: Suresh Baumann MD, [address], [place], [address]. tel:[phone] ist: Liat Umanzor, [address] [facility] [address], [place], [address]. tel:[phone] ist: Lon Cedeno, [address], [place], [address]. tel:[phone] ng Provider: Adam Dias, [address] [place] [address], [place], [address]. tel:[phone] Office Visit Level IV [facility] [address], [id number], [place] tel:[phone] [facility] Follow Up of Rheumatoid Arthritis (chief complaint)F ibromyalgia Syndrome (chief complaint) RECURRENT INFECTIONSSe ropositive Rheumatoid ArthritisFib romyalgiaBod y mass index (BMI) 30.0-30.9, adultOther fatigueCurre nt Use of Steroid MedicationNS AID Group Home Use 0 Ltac, Located [facility]. [address] [facility] [address], [address]. tel:[phone] Specialist: Suresh Baumann MD, [address] [facility] [address], [place], [address]. tel:[phone] ist: Liat Umanzor, [address] [facility] [address], [place], [address]. tel:[phone] allison Provider: Adam Dias, [address] [place] [address], [place], [address]. tel:[phone] [facility] [address], [id number], [place] tel:[phone] [facility] No Information 0 Ltac, Located Within [facility]. [address] [facility], [facility] [address], [place], [address]. tel:[phone] Referring Provider: Adam Dias, [address] [place] [address] 1, [place], [address]. tel:[phone] Office Visit Level IV [facility] [address] [place] [address], [id number], tel:[phone] [facility].. Follow Up of Rheumatoid Arthritis (chief complaint)F ibromyalgia Syndrome (chief complaint) RECURRENT INFECTIONSSe ropositive Rheumatoid ArthritisRIG HT LUMBAR RADICULITISF ibromyalgiaB per mass index (BMI) 28.0-28.9, adultBody mass index (BMI) 30.0-30.9, adult Dec- 2-201 9 Wells GILL Chaudhry. [address] [place] [address], [id number], . tel:[phone] Referring Provider: Adam Dias, [address] [place] [address], [place], [address]. tel:[phone] Office Visit Level IV [facility] [address] [place] [address], [id number], tel:[phone] [facility] Follow Up of Rheumatoid Arthritis (chief complaint)F ibromyalgia Syndrome (chief complaint) RECURRENT INFECTIONSSe ropositive Rheumatoid ArthritisFib romyalgiaBod y mass index (BMI) 28.0-28.9, adultRIGHT LUMBAR RADICULITIS Sep-0 5-201 9 Jolanta Funes. [address] [place] [address], [id number]. tel:[phone] Referring Provider: Adam Dias, [address] [place] [address], [place], [address]. tel:[phone] Office Visit Level IV [facility] [address] [place] [address], [id number], tel:[phone] [facility] Follow Up of Rheumatoid Arthritis (chief complaint)F ibromyalgia Syndrome (chief complaint) RECURRENT INFECTIONSSe ropositive Rheumatoid ArthritisFib romyalgiaBod y mass index (BMI) 29.0-29.9, adult Martin-0 5-201 9 Ltac, Located [facility]. [address] [facility], [facility] [address], [place], [address]. tel:[phone] Specialist: Suresh Baumann MD, [address], [place], [address]. tel:[phone] ng Provider: Adam Dias, [address] [place] [address] 1, [place], [address]. tel:[phone] Office Visit Level IV [facility], [address] [place] [address], [id number], [place] tel:[phone] [facility] Follow Up of Rheumatoid Arthritis (chief complaint)F ibromyalgia Syndrome (chief complaint) RECURRENT INFECTIONSSe ropositive Rheumatoid ArthritisFib romyalgiaBod y mass index (BMI) 29.0-29.9, adult Apr-2 9 Ltac, Located [facility]. [address] [place] [address], [address], [address]. tel:[phone] Referring Provider: Adam Dias, [address] [place] [address], [place], [address]. tel:[phone] Office Visit Level IV [facility], [address] [place] [address], [id number], [place] tel:[phone] [facility] Follow Up of Rheumatoid Arthritis (chief complaint)F ibromyalgia Syndrome (chief complaint) Seropositive Rheumatoid ArthritisFib romyalgiaBod y mass index (BMI) 29.0-29.9, adultRECURRE NT INFECTIONS Mar-2 9 Ltac, Located [facility]. [address], [address]. tel:[phone] Referring Provider: Adam Dias, [address] [place] [address], [place], [address]. tel:[phone] [facility] [address], [id number], [place] tel:[phone] [facility] Follow Up of Rheumatoid Arthritis (chief complaint)F ibromyalgia Syndrome (chief complaint) Immunosuppre ssionSeropos itive Rheumatoid ArthritisFib romyalgiaBod y mass index (BMI) 29.0-29.9, adultMethotr exate, custodial, current use 0 8 Ltac, Located [facility]. [address], [address], [address]. tel:[phone] Office Visit Level IV [facility] [address] [place] [address], [id number], [place] tel:[phone] [facility] No Information 8 Ltac, Located [facility]. [facility] [address], [address], [address]. tel:[phone] Referring Provider: Adam Dias, [address] [place] [address], [address]. tel:[phone] [facility] [address] [place] [address], [id number], [place] tel:[phone] [facility], .S.. No Information 8 Ltac, Located [facility]. [facility] [address], [address] [address], [place], [address]. tel:[phone] Referring Provider: Adam Dias, [address] [place] [address], [address]. tel:[phone] [facility] [address] [place] [address], [id number], [place] tel:[phone] [facility] No Information 8 Ltac, Located [facility]. [address] [place], [place] [address]emiliana Sorto, [address], [address]. tel:[phone] Referring Provider: Adam Dias [address] [place] [address], [place], [address]. tel:[phone] Office Visit Level IV [facility] [address] [place] [id number], [place] tel:[phone] [facility] 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. [facility] [address], [address]. tel:[phone] Referring Provider: Adam Dias, [address] [place] [address], [place], [address]. tel:[phone] [facility] [address] [place] [address], [id number], [place] tel:[phone] [facility] No Information 0 3-201 8 Ltac, Located [facility]. [facility] [address], [address]. tel:[phone] [facility] [address] [place] [address], [id number], [place] tel:[phone] [facility] No Information 0 6201 8 Ltac, Located [facility]. [facility] [address], [address]. tel:[phone] Referring Provider: Adam Dias, [address] [place] [address], [place], [address]. tel:[phone] Office Visit Level V [facility] [address] [place] [address], [id number], [place] tel:[phone] [facility] Follow Up of Rheumatoid Arthritis (chief complaint)F ibromyalgia Syndrome (chief complaint) Seropositive Rheumatoid ArthritisBod y mass index (BMI) 29.0-29.9, adultMethotr exate, intermodal owner operator truck driver, current useFibromyal felecia Feb- 8 Ltac, Located [facility]. [address], [address] [place] [address], [address]. tel:[phone] Referring Provider: Adam Dias, [address] [place] [address], [address]. tel:[phone] Office Visit Level IV [facility] [address] [place] [address], [id number], tel:[phone] [facility] Rheumatoid Arthritis (chief complaint) Seropositive Rheumatoid ArthritisMet hotrexate, intermodal owner operator truck driver, current useBody mass index (BMI) 29.0-29.9, adult 8 Ltac, Located [facility]. [address], [address] [place] [address], [address]. tel:[phone] Referring Provider: Adam Dias, [address] [place] [address], [address]. tel:[phone] [facility] .[facility].., [address], [id number], [place] tel:[phone] [facility] Seropositive Rheumatoid ArthritisMet hotrexate, custodial, current use 7 Kris Cassandra. [address], [address] [place] [address], [id number]. tel:[phone] Office Visit Level IV [facility] [address] [place] [address], [id number], [place] tel:[phone] [facility] Rheumatoid Arthritis (chief complaint) Seropositive Rheumatoid ArthritisMet hotrexate, custodial, current useOther fatigue 7 Ltac, Located [facility]. [address], [address], [place], [address]. tel:[phone] Referring Provider: Adam Dias, [address] [facility] [address], [place], [address]. tel:[phone] [facility] [address], [place], [place], [id number], tel:[phone] [facility] Seropositive Rheumatoid ArthritisMet hotrexate, custodial, current use 7 Ltac, Located [facility]. [address], [address], [place], [address]. tel:[phone] Family History Family Member Type Diagnosis Age At Onset Mother Problem (finding) Arthritis Mother Problem (finding) diabetes mellitus type 2 Immunizations Vaccine Date Status Comments SARS-COV-2 (COVID-19) vaccin e, mRNA, spike protein, LNP, preservative free, 100 mcg/0.5mL dose (Moderna) administered Source: Other Provid er SARS-COV-2 (COVID-19) vaccin e, mRNA, spike protein, LNP, preservative free, 100 mcg/0.5mL dose (Moderna) administered Source: Other Provid er Flu (split) (3 yrs or older) administered Source: Other Provider Flu (split) (3 yrs or older) administered Source: Other Provider Flu (split) (3 yrs or older) administered Note: Aprox date ; Source: Public Agency Payers Payer name Insurance type Covered libertarian ID Authoriza tion(s) [facility] National Account 13478 BL [id number] Social History Type Description Quantity Date Captured Comments Alcohol Use Details Unknown Caffeine Use Details Unknown Tobacco Use Status No Information Smoking Status No Information Sex Female Chief Complaint And Reason For Visit No Information Reason For Referral Reason For Referral No Information Plan Of Treatment Date Type Action Status Goal Lifestyle education regardin g diet completed Goal Lifestyle education regardin g diet completed Goal Lifestyle education regardin g diet completed Goal Lifestyle education regardin g diet completed Goal Dietary manageme nt education, guidance, and counseling completed Referral Ordered: Neurology (related to Paresthesias) ordered Referral Ordered: Referrals: Neurology. Evaluate and treat ordered Referral Ordered: Allergy and Immunology (related to RECURRENT INFECTIONS) ordered Referral Ordered: Referrals: Allergy and Immunology. Evaluate and treat ordered Patient Education Arthritis: Care Instruc tions completed Patient Education Musculoskeleta l Pain: Care Instructio~ completed Patient Education Neuropathic Pa in: Care Instructions completed Patient Education Fibromyalgia: Care Inst ructions completed Patient Education Thumb Arthritis: Exerci ses completed Patient Education Musculoskeleta l Pain: Care Instructio~ completed Patient Education Neuropathic Pa in: Care Instructions completed Patient Education Hand Arthritis: Exercis es completed Patient Education Foot Arthritis: Exercis es completed Patient Education Arthritis: Care Instruc tions completed Patient Education Rheumatoid Art hritis: Care Instruction completed Patient Education Rheumatoid Art hritis Diet: Care Instru completed Patient Education Rheumatoid Art hritis: Care Instruction completed Future Order: Lab Order CBC With Differential/Platelet ([id number]), Ordered on: Ordered Future Order: Lab Order Comp. Me tabolic Panel (14) ([id number]), Ordered on: Ordered Future Order: Lab Order C-Reacti ve Protein, Quant ([id number]), Ordered on: Ordered Future Order: Lab Order Sediment ation Rate-Westergren ([id number]), Ordered on: Ordered Future Order: Radiology Order Ch est X-ray, AP/Lat (2 Views) ([id number]), Ordered on: Ordered Future Order: Lab Order CBC With Differential/Platelet ([id number]), Ordered on: Ordered Future Order: Lab Order Comp. Me tabolic Panel (14) ([id number]), Ordered on: Ordered Future Order: Lab Order C-Reacti ve Protein, Quant ([id number]), Ordered on: Ordered Future Order: Lab Order Hepatiti s Panel (4) ([id number]), Ordered on: Ordered Future Order: Lab Order Sediment ation Rate-Westergren ([id number]), Ordered on: Ordered Future Order: Lab Order Quanti FERON - TB Gold IT Plus (Theratest) (TBGP), Ordered on: Ordered Future Order: Lab Order In-Shaji se Urine Drug Screen ([id number]), Ordered on: Ordered Future Order: Lab Order CBC With Differential/Platelet ([id number]), Ordered on: Ordered Future Order: Lab Order Comp. Me tabolic Panel (14) ([id number]), Ordered on: Ordered Future Order: Lab Order C-Reacti ve Protein, Quant ([id number]), Ordered on: Ordered Future Order: Lab Order Sediment ation Rate-Westergren ([id number]), Ordered on: Ordered Future Order: Lab Order CBC With Differential/Platelet ([id number]), Ordered on: Ordered Future Order: Lab Order Comp. Me tabolic Panel (14) ([id number]), Ordered on: Ordered Future Order: Lab Order C-Reacti ve Protein, Quant ([id number]), Ordered on: Ordered Future Order: Lab Order Sediment ation Rate-Westergren ([id number]), Ordered on: Ordered Future Order: Lab Order CBC With Differential/Platelet ([id number]), Ordered on: Ordered Future Order: Lab Order Comp. Me tabolic Panel (14) ([id number]), Ordered on: Ordered Future Order: Lab Order C-Reacti ve Protein, Quant ([id number]), Ordered on: Ordered Future Order: Lab Order Sediment ation Rate-Westergren ([id number]), Ordered on: Ordered Future Order: Radiology Order Ch est X-ray; AP/Lat (2 views) ([id number]), Ordered on: Ordered Future Order: Lab Order CBC With Differential/Platelet ([id number]), Ordered on: Ordered Future Order: Lab Order Comp. Me tabolic Panel (14) ([id number]), Ordered on: Ordered Future Order: Lab Order C-Reacti ve Protein, Quant ([id number]), Ordered on: Ordered Future Order: Lab Order Sediment ation Rate-Westergren ([id number]), Ordered on: Ordered Future Order: Lab Order Hepatiti s Panel (4) ([id number]), Ordered on: Ordered Future Order: Lab Order Quanti FERON - TB Gold IT Plus (Theratest) (TBGP), Ordered on: Ordered Future Order: Lab Order C-Reacti ve Protein, Quant ([id number]), Ordered on: Ordered Future Order: Lab Order Sediment ation Rate-Westergren ([id number]), Ordered on: Ordered Future Order: Lab Order CBC With Differential/Platelet ([id number]), Ordered on: Ordered Future Order: Lab Order Comp. Me tabolic Panel (14) ([id number]), Ordered on: Ordered Future Order: Radiology Order Deena mbar Spine X-ray (including sacrum) (Complete, with bending views) ([id number]), Ordered on: Ordered Future Order: Lab Order CBC With Differential/Platelet ([id number]), Ordered on: Ordered Future Order: Lab Order Comp. Nv tabolic Panel (14) ([id number]), Ordered on: Ordered Future Order: Lab Order C-Reacti ve Protein, Quant ([id number]), Ordered on: Ordered Future Order: Lab Order Sediment ation Rate-Westergren ([id number]), Ordered on: Ordered Future Order: Lab Order CBC With Differential/Platelet ([id number]), Ordered on: Ordered Future Order: Lab Order Comp. Nv tabolic Panel (14) ([id number]), Ordered on: Ordered Future Order: Lab Order C-Reacti ve Protein, Quant ([id number]), Ordered on: Ordered Future Order: Lab Order Sediment ation Rate-Westergren ([id number]), Ordered on: Ordered Future Order: Lab Order CBC With Differential/Platelet ([id number]), Ordered on: Ordered Future Order: Lab Order Comp. Nv tabolic Panel (14) ([id number]), Ordered on: Ordered Future Order: Lab Order C-Reacti ve Protein, Quant ([id number]), Ordered on: Ordered Future Order: Lab Order Sediment ation Rate-Westergren ([id number]), Ordered on: Ordered Future Order: Lab Order CBC With Differential/Platelet ([id number]), Ordered on: Ordered Future Order: Lab Order Comp. Nv tabolic Panel (14) ([id number]), Ordered on: Ordered Future Order: Lab Order C-Reacti ve Protein, Quant ([id number]), Ordered on: Ordered Future Order: Lab Order Sediment ation Rate-Westergren ([id number]), Ordered on: Ordered Future Order: Lab Order CBC With Differential/Platelet ([id number]), Ordered on: Ordered Future Order: Lab Order Comp. Me tabolic Panel (14) ([id number]), Ordered on: Ordered Future Order: Radiology Order Ch est X-ray, AP/Lat (2 Views) ([id number]), Ordered on: Ordered Future Order: Lab Order CBC With Differential/Platelet ([id number]), Ordered on: Ordered Future Order: Lab Order Comp. Me tabolic Panel (14) ([id number]), Ordered on: Ordered Future Order: Lab Order C-Reacti ve Protein, Quant ([id number]), Ordered on: Ordered Future Order: Lab Order Sediment ation Rate-Westergren ([id number]), Ordered on: Ordered Future Order: Lab Order CBC, Alyssa telet; No Differential ([id number]), Sent on: Sent Future Order: Lab Order Comp. Nv tabolic Panel (14) ([id number]), Sent on: Sent Future Order: Lab Order C-Reacti ve Protein, Quant ([id number]), Sent on: Sent Future Order: Lab Order Sediment ation Rate-Westergren ([id number]), Sent on: Sent Future Order: Radiology Order Ch est X-ray; AP/Lat (2 views) ([id number]), Ordered on: Ordered Future Order: Lab Order QuantiFE DARION TB Gold (In Tube) ([id number]), Ordered on: Ordered Future Order: Lab Order Hepatiti s Panel ([id number]), Ordered on: Ordered Future Order: Lab Order QuantiFE DARION TB Gold (In Tube) ([id number]), Ordered on: Ordered Future Order: Lab Order Hepatiti s Panel ([id number]), Ordered on: Ordered Future Order: Lab Order CBC, Alyssa telet; No Differential ([id number]), Ordered on: Ordered Future Order: Lab Order Comp. Me tabolic Panel (14) ([id number]), Ordered on: Ordered Future Order: Lab Order C-Reacti ve Protein, Quant ([id number]), Ordered on: Ordered Future Order: Lab Order Sediment ation Rate-Westergren ([id number]), Ordered on: Ordered Future Order: Lab Order Comp. Me tabolic Panel (14) ([id number]), Scheduled for: Ordered History Of Present Illness Encounter Date Complaint History Of Prese nt Illness Follow Up of Rheumatoid Arthriti s Fibromyalgia Syndrome Follow Up of Rheumatoid Arthriti s Fibromyalgia Syndrome Follow Up of Rheumatoid Arthriti s Fibromyalgia Syndrome Follow Up of Rheumatoid Arthriti s Fibromyalgia Syndrome Follow Up of Rheumatoid Arthriti s Fibromyalgia Syndrome Follow Up of Rheumatoid Arthriti s Fibromyalgia Syndrome Follow Up of Rheumatoid Arthriti s Fibromyalgia Syndrome Follow Up of Rheumatoid Arthriti s Fibromyalgia Syndrome Follow Up of Rheumatoid Arthriti s Fibromyalgia Syndrome Follow Up of Rheumatoid Arthriti s Fibromyalgia Syndrome Follow Up of Rheumatoid Arthriti s Fibromyalgia Syndrome Follow Up of Rheumatoid Arthriti s Fibromyalgia Syndrome Follow Up of Rheumatoid Arthriti s Fibromyalgia Syndrome Follow Up of Rheumatoid Arthriti s Fibromyalgia Syndrome Follow Up of Rheumatoid Arthriti s Fibromyalgia Syndrome Rheumatoid Arthritis Rheumatoid Arthritis Functional Status Date Functional Assessmen t No Information Instructions Date Instruction Additional Infor sapna 1. She is not curren tly on DMARD or biologic therapy due to infection2. Continue low dose prednisone3. Continue Celebrex PRN 4. Refill medications 5. Follow up in 3-4 months 6. We will mail her a lab order and educational handout Related to Seropositive Rheumatoid Arthritis 1. H & P consistent with this diagnosis. 2. Encourage aerobic activity and sleep hygiene.3. If she has not had a sleep study/consultation consider getting this done. 4. Weight loss would be helpful 5. She will follow up with us in 4 months.6. Continue Cymbalta. Refill today. 7. She has chronic/constant pain. 8. Continue/refill gabapentin 9. Continue Celebrex PRN twice/day. Refill today. 10. 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 I do not do any type of functional assessment/evaluation. I have no idea how long she can or cannot sit, stand, walk, etc. I do not know how much she can lift, pull, push, etc. We do not do these kinds of tests. I encourage patients with fibromyalgia to be active. Activity is thought to improve myofascial pain Related to Fibromyalgia Do not take over-the counter anti-inflammatory medicines, such as ibuprofen or naproxen (Advil, Motrin, Aleve and others), as they may cause problems when combined with your prescription medications. In general, low dose daily aspirin for the treatment or prevention of heart disease or stroke is safe to take. Acetaminophen (Tylenol) is generally safe to take as directed for headaches, cramps or other aches and pains or fever reduction Related to NSAID Quality Assurance Monitor Chassis Use Ideally she would ta per off. Prior attempts to taper have failed. Refill today Related to Current Use of Steroid Medication 1. She has been diag nosed with MAC infection. She recently had a lung biopsy. She is on 3 antibiotics. She is seeing pulmonology and infections disease specialists. 2. Evaluated by immunology 02/2019: no immunodeficiencies Related to RECURRENT INFECTIONS Check EDMUNDO and Ash g screen as required.Refill today Related to Other specified personal risk factors Refer to neurology t o evaluate for carpal tunnel Related to Paresthesias Check TB status, hep atitis panel, and CXR Related to Other fatigue 1. She was taken off of DMARDs/Biologic agents as of 09/23/2018 due to recurrent infections. 2. Evaluated by immunology 02/2019: no immunodeficiencies.3. She is seeing pulmonology for her lung issues Related to RECURRENT INFECTIONS 1. As of 09/23/2018 I have stopped/held DMARD and biologic therapies due to recurrent infections. We referred her to an erector operator 02/2019. They evaluated her and found no immunodeficiency disorders. She is seeing pulmonology for her lungs. 2.Continue prednisone 5 mg/day. 3. Arava 20 mg/day was stopped by patient as she has had recurrent infections.4. Continue Plaquenil. 5. Stop sulfasalazine. She wants to try going back on a biologic agent. Risks and benefits reviewed. If we get a biologic agent restarted I would have her stop Plaquenil too. I will begin the prior authorization process 6. Compliance with labs and follow up appointments has been a barrier to her treatment in the past. 7. She was allergic to Enbrel historically. Historically Cimzia was not covered by insurance. 8. Prognosis is guarded. 9. Refill medications. 10. RTC 3-4 months. 11. We will provider her with a lab order and educational handout Related to Seropositive Rheumatoid Arthritis Check EDMUNDO and Ash g screen as required.Refill today Related to Other specified personal risk factors Do not take over-the counter anti-inflammatory medicines, such as ibuprofen or naproxen (Advil, Motrin, Aleve and others), as they may cause problems when combined with your prescription medications. In general, low dose daily aspirin for the treatment or prevention of heart disease or stroke is safe to take. Acetaminophen (Tylenol) is generally safe to take as directed for headaches, cramps or other aches and pains or fever reduction Related to NSAID Quality Assurance Monitor Chassis Use 1. H & P consistent with this diagnosis. 2. Encourage aerobic activity and sleep hygiene.3. If she has not had a sleep study/consultation consider getting this done. 4. We gavel her an educational handout. 5. She will follow up with us in 4 months.6. Continue Cymbalta. Refill today. 7. She has chronic/constant pain. 8. Continue/refill gabapentin 9. Continue Celebrex PRN twice/day. Refill today. 10. 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 I do not do any type of functional assessment/evaluation. I have no idea how long she can or cannot sit, stand, walk, etc. I do not know how much she can lift, pull, push, etc. We do not do these kinds of tests. I encourage patients with fibromyalgia to be active. Activity is thought to improve myofascial pain Related to Fibromyalgia Stop sulfasalazine Related to En counter for Monitoring Sulfasalazine Therapy Ideally she would ta per off. Prior attempts to taper have failed. Refill today Related to Current Use of Steroid Medication Lifestyle education regarding di et Related to Body mass index [BMI] 28.0-28.9, adult 1. She was taken off of DMARDs/Biologic agents as of 09/23/2018 due to recurrent infections. 2. Evaluated by immunology 02/2019: no immunodeficiencies.3. She is seeing pulmonology for her lung issues. 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 Related to RECURRENT INFECTIONS 1. As of 09/23/2018 I have stopped/held DMARD and biologic therapies due to recurrent infections. We referred her to an erector operator 02/2019. They evaluated her and found no immunodeficiency disorders. She is seeing pulmonology for her lungs. 2.Continue prednisone 5 mg/day. 3. Arava 20 mg/day was stopped by patient as she has had recurrent infections.4. Continue Plaquenil. 5. Continue sulfasalazine. 6. Compliance with labs and follow up appointments has been a barrier to her treatment in the past. 7. She was allergic to Enbrel historically. Historically Cimzia was not covered by insurance. 8. Prognosis is guarded. 9. Refill medications. 10. RTC 3-4 months. 11. We will mail her a lab order and educational handout. 12. She currently has Covid-19 pneumonia. This is her second bout o Covid.13. She was having swelling and pain in her hands prior to Covid diagnosis. She has left jaw pain as well. Related to Seropositive Rheumatoid Arthritis 1. CBC and CMP every 8-12 weeks to monitor for toxicity. 2. No recent serious infections. Related to Encounter for Monitoring Sulfasalazine Therapy Do not take over-the counter anti-inflammatory medicines, such as ibuprofen or naproxen (Advil, Motrin, Aleve and others), as they may cause problems when combined with your prescription medications. In general, low dose daily aspirin for the treatment or prevention of heart disease or stroke is safe to take. Acetaminophen (Tylenol) is generally safe to take as directed for headaches, cramps or other aches and pains or fever reduction. Related to NSAID Group Home Use 1. H & P consistent with this diagnosis. 2. Encourage aerobic activity and sleep hygiene.3. If she has not had a sleep study/consultation consider getting this done. 4. We will mail her an educational handout. 5. She will follow up with us in 4 months.6. Continue Cymbalta. Refill today. 7. She has chronic/constant pain. 8. She is on gabapentin 600 mg TID. Try increasing the dose to 800 mg TID. Risks and benefits reviewed. 9. Continue Celebrex PRN twice/day. Refill today. 10. 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 I do not do any type of functional assessment/evaluation. I have no idea how long she can or cannot sit, stand, walk, etc. I do not know how much she can lift, pull, push, etc. We do not do these kinds of tests. I encourage patients with fibromyalgia to be active. Activity is thought to improve myofascial pain.11. She has difficulty opening the left side of her mouth. She has left side jaw nolan. She does not go to the dentist as she has dentures. Related to Fibromyalgia Ideally she would ta per off. Prior attempts to taper have failed. Refill today. Related to Current Use of Steroid Medication Check EDMUNDO and Ahs g screen as required.Drug screen will be done next time she is here in the office. Currently she is social distancing/quarantining due to the COVID 19 pandemic. Refill today. Related to Other specified personal risk factors 1. CBC and CMP every 8-12 weeks to monitor for toxicity. 2. No recent serious infections. Related to Encounter for Monitoring Sulfasalazine Therapy Check EDMUNDO and Ash g screen as required.Drug screen will be done next time she is here in the office. Currently she is social distancing/quarantining due to the COVID 19 pandemic. Refill today. Related to Other specified personal risk factors 1. She was taken off of DMARDs/Biologic agents as of 09/23/2018 due to recurrent infections. 2. Evaluated by immunology 02/2019: no immunodeficiencies.3. She is seeing pulmonology for her lung issues. Related to RECURRENT INFECTIONS 1. As of 09/23/2018 I have stopped/held DMARD and biologic therapies due to recurrent infections. We referred her to an erector operator 02/2019. They evaluated her and found no immunodeficiency disorders. She is seeing pulmonology for her lungs. 2.Continue prednisone 5 mg/day. 3. Arava 20 mg/day was stopped by patient as she has had recurrent infections.4. Continue Plaquenil. 5. Continue sulfasalazine. 6. Compliance with labs and follow up appointments has been a barrier to her treatment in the past. 7. She was allergic to Enbrel historically. Historically Cimzia was not covered by insurance. 8. Prognosis is guarded. 9. Refill medications. 10. RTC 3-4 months. 11. We will mail her a lab order and educational handout. Related to Seropositive Rheumatoid Arthritis 1. H & P consistent with this diagnosis. 2. Encourage aerobic activity and sleep hygiene.3. If she has not had a sleep study/consultation consider getting this done. 4. We will mail her an educational handout. 5. She will follow up with us in 4 months.6. Continue Cymbalta. Refill today. 7. She has chronic/constant pain. 8. She is on gabapentin 600 mg TID. Try increasing the dose to 800 mg TID. Risks and benefits reviewed. 9. Continue Celebrex PRN twice/day. Refill today. 10. 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 I do not do any type of functional assessment/evaluation. I have no idea how long she can or cannot sit, stand, walk, etc. I do not know how much she can lift, pull, push, etc. We do not do these kinds of tests. I encourage patients with fibromyalgia to be active. Activity is thought to improve myofascial pain. Related to Fibromyalgia Do not take over-the counter anti-inflammatory medicines, such as ibuprofen or naproxen (Advil, Motrin, Aleve and others), as they may cause problems when combined with your prescription medications. In general, low dose daily aspirin for the treatment or prevention of heart disease or stroke is safe to take. Acetaminophen (Tylenol) is generally safe to take as directed for headaches, cramps or other aches and pains or fever reduction. Related to NSAID Group Home Use Ideally she would ta per off. Prior attempts to taper have failed. Refill today. Related to Current Use of Steroid Medication Do not take over-the counter anti-inflammatory medicines, such as ibuprofen or naproxen (Advil, Motrin, Aleve and others), as they may cause problems when combined with your prescription medications. In general, low dose daily aspirin for the treatment or prevention of heart disease or stroke is safe to take. Acetaminophen (Tylenol) is generally safe to take as directed for headaches, cramps or other aches and pains or fever reduction. Related to NSAID Group Home Use 1. H & P consistent with this diagnosis. 2. Encourage aerobic activity and sleep hygiene.3. If she has not had a sleep study/consultation consider getting this done. 4. Handout on fibromyalgia given to her to take home and review. 5. She will follow up with us in 4-6 months.6. Continue Cymbalta. 7. Today she rates her pain as 10/10 in severity. 8. She is on gabapentin 600 mg TID.9. Will prescribe Celebrex 200mg daily10. 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 I do not do any type of functional assessment/evaluation. I have no idea how long she can or cannot sit, stand, walk, etc. I do not know how much she can lift, pull, push, etc. We do not do these kinds of tests. I encourage patients with fibromyalgia to be active. Activity is thought to improve myofascial pain. Related to Fibromyalgia 1. As of 09/23/2018 I have stopped/held DMARD and biologic therapies due to recurrent infections. We referred her to an erector operator 02/2019. They evaluated her and found no immunodeficiency disorders. She is seeing pulmonology for her lungs. 2.Continue prednisone 5 mg/day. 3. Arava 20 mg/day was stopped by patient as she has had recurrent infections.4. She started plaquenil 02/2020. No side effects. Give it more time. 5. Start SSZ today. Begin at 1 BID and work up to 2 BID as tolerated. 6. Compliance with labs and follow up appointments has been a barrier to her treatment in the past. 7. She was allergic to Enbrel historically. Historically Cimzia was not covered by insurance. 8. Prognosis is guarded. 9. Refill medications. 10. Prednisone burst and taper today. 11. Labs today. 12. RTC 3-4 months. Related to Seropositive Rheumatoid Arthritis Check TB status, hep atitis panel, and CXR Related to Other fatigue Ideally she would ta per off. Today she rates her pain as 10/10 in severity. I am not able to taper at this point. Related to Current Use of Steroid Medication 1. She was taken off of DMARDs/Biologic agents as of 09/23/2018 due to recurrent infections. 2. Evaluated by immunology 02/2019: no immunodeficiencies.3. She is seeing pulmonology for her lung issues. Related to RECURRENT INFECTIONS Do not take over-the counter anti-inflammatory medicines, such as ibuprofen or naproxen (Advil, Motrin, Aleve and others), as they may cause problems when combined with your prescription medications. In general, low dose daily aspirin for the treatment or prevention of heart disease or stroke is safe to take. Acetaminophen (Tylenol) is generally safe to take as directed for headaches, cramps or other aches and pains or fever reduction. Related to NSAID Group Home Use 1. As of 09/23/2018 Dr. Ryan stopped/held DMARD and biologic therapies due to recurrent infections. We referred her to an erector operator 02/2019. They evaluated her and found no immunodeficiency disorders. She is seeing pulmonology for her lungs. 2. Will try Plaquenil as it may not lower her immune system as much. I am only comfortable starting out at 200mg daily. Discussed risks and benefits of medicine as well as side effects and possible allergic reactions.3 .Continue prednisone 5 mg/day. Send taper in to begin today.3. Arava 20 mg/day was stopped by patient as she has had recurrent infections.4. Recent labs stable.5. Follow up with me in 3-4 months.6. Compliance with labs and follow up appointments has been a barrier to her treatment in the past. 7. She was allergic to Enbrel historically. Historically Cimzia was not covered by insurance. 8. Prognosis is guarded. 9. She is to have every 9-12 month eye exams for Plaquenil. Related to Seropositive Rheumatoid Arthritis 1. H & P consistent with this diagnosis. 2. Encourage aerobic activity and sleep hygiene.3. If she has not had a sleep study/consultation consider getting this done. 4. Handout on fibromyalgia given to her to take home and review. 5. She will follow up with us in 4-6 months.6. Continue Cymbalta. 7. Today she rates her pain as 10/10 in severity. 8. She is on gabapentin 600mg TID.9. Celebrex 200mg daily Related to Fibromyalgia stable Related to Other fatigue 1. She was taken off of DMARDs/Biologic agents as of 09/23/2018 due to recurrent infections. 2. Evaluated by immunology 02/2019: no immunodeficiencies.3. She is seeing pulmonology for her lung issues. 4. Will try Plaquenil 200mg daily. Related to RECURRENT INFECTIONS Ideally she would ta per off. Today she rates her pain as 10/10 in severity. I am not able to taper at this point. Related to Current Use of Steroid Medication Ideally she would ta per off. Today she rates her pain as 10/10 in severity. I am not able to taper at this point. Related to Current Use of Steroid Medication 1. H & P consistent with this diagnosis. 2. Encourage aerobic activity and sleep hygiene.3. If she has not had a sleep study/consultation consider getting this done. 4. Handout on fibromyalgia given to her to take home and review. 5. She will follow up with us in 4-6 months.6. Continue Cymbalta. 7. Today she rates her pain as 10/10 in severity. 8. She is on gabapentin 400 mg TID. I am going to increase this to 600 mg TID. Risks and benefits reviewed. 9. Will prescribe Celebrex 200mg daily10. 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 I do not do any type of functional assessment/evaluation. I have no idea how long she can or cannot sit, stand, walk, etc. I do not know how much she can lift, pull, push, etc. We do not do these kinds of tests. I encourage patients with fibromyalgia to be active. Activity is thought to improve myofascial pain. Related to Fibromyalgia 1. As of 09/23/2018 I have stopped/held DMARD and biologic therapies due to recurrent infections. We referred her to an erector operator 02/2019. They evaluated her and found no immunodeficiency disorders. She is seeing pulmonology for her lungs. 2.Continue prednisone 5 mg/day. 3. Arava 20 mg/day was stopped by patient as she has had recurrent infections.4. Check labs today. 5. Follow up with me in 3-4 months.6. Compliance with labs and follow up appointments has been a barrier to her treatment in the past. 7. She was allergic to Enbrel historically. Historically Cimzia was not covered by insurance. 8. Prognosis is guarded. 9. Refill medications. Related to Seropositive Rheumatoid Arthritis 1. She was taken off of DMARDs/Biologic agents as of 09/23/2018 due to recurrent infections. 2. Evaluated by immunology 02/2019: no immunodeficiencies.3. She is seeing pulmonology for her lung issues. Related to RECURRENT INFECTIONS Do not take over-the counter anti-inflammatory medicines, such as ibuprofen or naproxen (Advil, Motrin, Aleve and others), as they may cause problems when combined with your prescription medications. In general, low dose daily aspirin for the treatment or prevention of heart disease or stroke is safe to take. Acetaminophen (Tylenol) is generally safe to take as directed for headaches, cramps or other aches and pains or fever reduction. Related to NSAID Group Home Use Check TB status, hep atitis panel, and CXR Related to Other fatigue Lifestyle education regarding di et Related to Body mass index (BMI) 30.0-30.9, adult 1. As of 09/23/2018 I have stopped/held DMARD and biologic therapies due to recurrent infections. We referred her to an erector operator 02/20. They evaluated her and found no immunodeficiency disorders. 2.Continue prednisone 5 mg/day. Risks and benefits reviewed. 3. Arava 20 mg/day was stopped by patient as she has chronic infections.4. She tells me she is considering filing disability. I discussed as a rheumatology practice we don't determine a person's disability. 5. Follow up with me in 3-4 months.6. Compliance with labs and follow up appointments has been a barrier to her treatment in the past. 7. She was allergic to Enbrel historically. Historically Cimzia was not covered by insurance. 8. Prognosis is guarded. 9.Lab order given10. [employer] in [place], Dr Umanzor, told her that her immune system was very low. Will request records.11. rates pain today as 10/10, both muscular and joint.12. Offer Depo-Medrol IM and prednisone taper. Nothing else to offer as she does not want to take immunosuppressants, and she has chronic infections. She prefers steroid injection. Will heave Marlen Balderrama, CNM inject 120mg IM depo medrol. Related to Seropositive Rheumatoid Arthritis x-ray L spine todayP T ordered not done due to illness.can't MRI due to bladder stimulator. Related to RIGHT LUMBAR RADICULITIS 1. H & P consistent with this diagnosis. 2. Encourage aerobic activity and sleep hygiene.3. If she has not had a sleep study/consultation consider getting this done. 4. Handout on musculoskeletal pain given to her to take home and review. 5. She will follow up with us in 3 months.6. Continue Cymbalta. 7. Today she rates her pain as 10/10 in severity. 8. Gabapentin to 400 mg TID. Risks and benefits reviewed. 9. Will prescribe Celebrex 200mg daily Related to Fibromyalgia She had a bronchosco py in the interim due to chronic pneumonia. Will get records. Related to RECURRENT INFECTIONS Lifestyle education regarding di et Related to Body mass index (BMI) 30.0-30.9, adult currently has pneumo elliott, being treated with Levaquin Related to RECURRENT INFECTIONS 1. H & P consistent with this diagnosis. 2. Encourage aerobic activity and sleep hygiene.3. If she has not had a sleep study/consultation consider getting this done. 4. Handout on musculoskeletal pain given to her to take home and review. 5. She will follow up with us in 3 months.6. Continue Cymbalta. 7. Today she rates her pain as 6/10 in severity. 8. Increase gabapentin to 400 mg TID. Risks and benefits reviewed. Related to Fibromyalgia 1. As of 09/23/2018 I have stopped/held DMARD and biologic therapies due to recurrent infections. We referred her to an erector operator 02/20. They evaluated her and found no immunodeficiency disorders. 2.Continue prednisone 5 mg/day. Risks and benefits reviewed. 3. Continue Arava 20 mg/day. Risks and benefits reviewed. 4. Today she tells me she is considering filing disability. I discussed as a rheumatology practice we don't determine a person's disability. 5. Follow up with me in 3-4 months.6. Compliance with labs and follow up appointments has been a barrier to her treatment in the past. 7. She was allergic to Enbrel historically. Historically Cimzia was not covered by insurance. 8. Prognosis is guarded. 9.Lab order given Related to Seropositive Rheumatoid Arthritis x-ray L spine todayP T ordered can't MRI due to bladder stimulator. Related to RIGHT LUMBAR RADICULITIS Lifestyle education regarding di et Related to Body mass index (BMI) 28.0-28.9, adult I last saw her 2018. We referred her to an erector operator at that visit. They evaluated her and found no immunodeficiency disorders. She has not had any infections since I saw her last and she would like to resume RA treatment. See above. Related to RECURRENT INFECTIONS 1. H & P consistent with this diagnosis. 2. Encourage aerobic activity and sleep hygiene.3. If she has not had a sleep study/consultation consider getting this done. 4. Handout on musculoskeletal pain given to her to take home and review. 5. She will follow up with us in 6 months.6. Continue Cymbalta. 7. Today she rates her pain as 9/10 in severity. 8. Try increasing gabapentin from 300 mg twice/day to 300 mg TID. Risks and benefits reviewed. Related to Fibromyalgia 1. As of 09/23/2018 I have stopped/held DMARD and biologic therapies due to recurrent infections. I last saw her 02/23/2019. We referred her to an erector operator at that visit. They evaluated her and found no immunodeficiency disorders. She has not had any infections since I saw her last and she would like to resume RA treatment. 2. Restart prednisone 5 mg/day. Risks and benefits reviewed. 3. Start Arava 20 mg/day. Risks and benefits reviewed. 4. Handout on arthritis given to her to take home and review. 5. Follow up with me in 3-4 months.6. Compliance with labs and follow up appointments has been a barrier to her treatment in the past. 7. She was allergic to Enbrel historically. Historically Cimzia was not covered by insurance. 8. Prognosis is guarded. 9. We will call her PCP office and get her most recent labs. Related to Seropositive Rheumatoid Arthritis 1. H & P consistent with this diagnosis. 2. Encourage aerobic activity and sleep hygiene.3. If she has not had a sleep study/consultation consider getting this done. 4. Handout on musculoskeletal pain given to her to take home and review. 5. She will follow up with us in 6 months.6. Continue Cymbalta. 7. Today she rates her pain as 9/10 in severity. 8. Try increasing gabapentin from 300 mg twice/day to 300 mg TID. Risks and benefits reviewed. Related to Fibromyalgia 1. Since I saw her she has had ear surgery and a GI infection. 2. I am going to refer her to an erector operator to evaluate for underlying immunodeficiency syndrome. Related to RECURRENT INFECTIONS 1. As of 09/23/2018 I have stopped/held DMARD and biologic therapies due to recurrent infections. See below. 2. She is no longer on prednisone. 3. Due to recurrent infections I am not willing to restart DMARD or biologic therapy. 4. Handout on MSK pain given to her to take home and review. 5. Follow up with me in 6 months.6. Compliance with labs and follow up appointments has been a barrier to her treatment in the past. 7. She was allergic to Enbrel historically. Historically Cimzia was not covered by insurance. 8. Refill medications. 9. Prognosis is guarded. Related to Seropositive Rheumatoid Arthritis 1. Today she reports having bronchitis and fluid in the ears. 2. Consider referral to erector operator to evaluate for underlying immunodeficiency syndrome. Related to RECURRENT INFECTIONS 1. As of 09/23/2018 I have stopped/held DMARD and biologic therapies due to recurrent infections. See below. 2. She is no longer on prednisone. 3. Due to recurrent infections I am not willing to restart DMARD or biologic therapy. 4. Handout on neuropathic pain given to her to take home and review. 5. Follow up with me in 6 months.6. Compliance with labs and follow up appointments has been a barrier to her treatment in the past. 7. She was allergic to Enbrel historically. Historically Cimzia was not covered by insurance. 8. Refill medications. 9. Check labs today. 10. Prognosis is guarded. Related to Seropositive Rheumatoid Arthritis 1. H & P consistent with this diagnosis. 2. Encourage aerobic activity and sleep hygiene.3. If she has not had a sleep study/consultation consider getting this done. 4. Handout on neuropathic pain given to her to take home and review. 5. She will follow up with us in 6 months.6. Continue Cymbalta. 7. Today she rates her pain as 9/10 in severity. 8. Try increasing gabapentin from 100 mg twice/day to 300 mg twice/day. Risks and benefits reviewed. Related to Fibromyalgia She did not get Acte mra due to recurrent infections in July or August. Today she tells me she feels sick/congested again. We will hold immunosuppressive therapy for now and try and let her immune system recover. Related to Immunosuppression 1. H & P consistent with this diagnosis. 2. Encourage aerobic activity and sleep hygiene.3. If she has not had a sleep study/consultation consider getting this done. 4. Handout on arthritis given to her to take home and review. 5. She will follow up with us in 3-4 months.6. Continue Cymbalta. 7. Today she rates her pain as 7/10 in severity. 8. Add gabapentin 100 mg twice/day. Risks and benefits reviewed. Related to Fibromyalgia She reports having r ecurrent infections for the last 2-3 months. We will hold immunosuppressive medications for now. 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 Today she reports having recurrent infections for the last 2-3 months. She did not take IV Actemra in August or July due to these issues. She tells me she feels sick today. She is afebrile. She has not been hospitalized. 2. She is no longer on prednisone. 3. Due to recurrent infections I am going to stop Actemra and hold her MTX/folic acid to try and let her get over these infections she has had. 4. Handout on arthritis given to her to take home and review. 5. Follow up with me in 3-4 months.6. Compliance with labs and follow up appointments has been a barrier to her treatment in the past. 7. She was allergic to Enbrel historically. Historically Cimzia was not covered by insurance. 8. Refill medications. 9. Check labs today. 10. Prognosis is guarded. Related to Seropositive Rheumatoid Arthritis 1. Hold if the patie nt develops infection. 2. Avoid live vaccines while on this medication. 3. No recent serious infections4. No infusion reactions. 5. Also hold this medication perioperatively if the patient is going to have a surgical procedure. Related to Immunosuppression 1. H & P consistent with this diagnosis. 2. Encourage aerobic activity and sleep hygiene.3. If she has not had a sleep study/consultation consider getting this done. 4. Handout on arthritis given to her to take home and review. 5. She will follow up with us in 3-4 months.6. Increase Cymbalta from 60 mg once/day to 60 mg twice/day. Risks and benefits reviewed. Related to Fibromyalgia 1. CBC and CMP every 8-12 weeks to monitor for toxicity. 2. Take folate supplements daily.3. No recent serious infections.4. New lab orders written today.5. 11/18/2017 labs were fine. On 05/06/2018 one of her LFTs was slightly elevated. We will monitor this closely. MTX can cause liver toxicity. 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 We now have her o n IV Actemra. She has gotten two doses thus far. She got a dose 04/09/2018 and today, 05/08/2018. We will give this more time. 2. She is no longer on prednisone. 3. Continue MTX/folic acid. 4. Handout on arthritis given to her to take home and review. 5. Follow up with me in 3-4 months.6. Compliance with labs and follow up appointments has been a barrier to her treatment. 7. She was allergic to Enbrel historically. Historically Cimzia was not covered by insurance. 8. Refill medications. 9. Check labs today. 10. She talked a lot today about difficulties working. 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 I do not do any type of functional assessment/evaluation. I have no idea how long she can or cannot sit, stand, walk, etc. I do not know how much she can lift, pull, push, etc. We do not do these kinds of tests. I encourage patients with fibromyalgia to be active. Activity is thought to improve myofascial pain. Related to Seropositive Rheumatoid Arthritis 1. H & P consistent with this diagnosis. 2. Encourage aerobic activity and sleep hygiene.3. If she has not had a sleep study/consultation consider getting this done. 4. Handout on arthritis given to her to take home and review. 5. She will follow up with us in 3-4 months.6. Increase Cymbalta from 30 mg once/day to 60 mg once/day. Risks and benefits reviewed. Related to Fibromyalgia 1. She is not feelin g well. We will try and get a PA for Cimzia. Risks and benefits reviewed. 2. She is no longer on prednisone. 3. Continue MTX/folic acid. 4. Handout on arthritis given to her to take home and review. 5. Follow up with me in 3-4 months.6. Compliance with labs and follow up appointments has been a barrier to her treatment. 7. She was allergic to Enbrel. 8. Refill medications. 9. CXR today. 10. Check labs today. Related to Seropositive Rheumatoid Arthritis 1. CBC and CMP every 8-12 weeks to monitor for toxicity. 2. Take folate supplements daily.3. No recent serious infections.4. New lab orders written today.5. 11/18/2017 labs were fine. 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 CBC and CMP every 8-12 weeks to monitor for toxicity. We have no recent labs on this patient. 2. Take folate supplements daily.3. No recent serious infections.4. New lab orders written today. Related to Methotrexate, custodial, current use 1. She has been lost to follow up since 05/01/2017. She is feeling worse. 2. She is no longer on prednisone. 3. Continue MTX/folic acid. 4. Handout on RA given to her to take home and review. 5. Follow up with me in 3-4 months.6. Compliance with labs and follow up appointments has been a barrier to her treatment. 7. At her last visit (05/01/2017). we were trying to get her approved for Enbrel. She tells me that she was allergic to this medication. She did not notify us of this until today. 8. Today her exam is concerning for fibromyalgia. I am going to start her on duloxetine 30 mg once/day. Risks and benefits reviewed. 9. Refill medications. 10. Check labs today. Related to Seropositive Rheumatoid Arthritis Dietary management e ducation, guidance, and counseling Related to Body mass index (BMI) 29.0-29.9, adult Impression: 1. CBC a nd CMP every 8 weeks to monitor for toxicity.2. Take folate supplements daily.3. No recent serious infections.4. Increase dose to 20 mg/week Related to Methotrexate, custodial, current use Impression: 1. 7 016 RF again positive. CCP was negative.2. She is on prednisone 5 mg/day. I will taper off prednisone once her condition is stable.3. She is on MTX and folic acid. She has improved but still reports pain in her hands and feet. Increase MTX dose from 15 mg/week to 20 mg/week.4. Handout on RA given to her to take home and review.5. Follow up with me in 3-4 months. Related to Seropositive Rheumatoid Arthritis Check TB, Hepatitis panel and CX R. Related to Other fatigue 1. CBC and CMP every 8 weeks to monitor for toxicity. We have no recent labs on this patient. 2. Take folate supplements daily.3. No recent serious infections.4. New lab orders written today. Related to Methotrexate, custodial, current use 1. She has been lost to follow up since 07/2016. She is feeling worse. 2. She is no longer on prednisone. 3. Continue MTX/folic acid. I am going to try and add a TNF inhibitor. Risks and benefits reviewed. Testing to be done today. 4. Handout on RA given to her to take home and review. 5. Follow up with me in 3-4 months. Related to Seropositive Rheumatoid Arthritis 1. CBC and CMP every 8 weeks to monitor for toxicity.2. Take folate supplements daily.3. No recent serious infections.4. Increase dose to 20 mg/week. Related to Methotrexate, custodial, current use 1. 05/04/2016 RF again positive. CCP was negative.2. She is on prednisone 5 mg/day. I will taper off prednisone once her condition is stable.3. She is on MTX and folic acid. She has improved but still reports pain in her hands and feet. Increase MTX dose from 15 mg/week to 20 mg/week.4. Handout on RA given to her to take home and review.5. Follow up with me in 3-4 months. Related to Seropositive Rheumatoid Arthritis Assessments Type Assessment Date No Information Patient Care Teams Name Effective Dates (start - stop) Status Members No Information
--- NOTE | 2024-03-27 11:11 | XR_ITS ---
FINAL REPORT TECHNIQUE: Chest PA & Lateral CLINICAL HISTORY: COSTOCHONDRAL PAIN COMPARISON: None FINDINGS: 2 views of the chest were performed. The heart size is normal. The mediastinum is within normal limits. Scar versus atelectasis is present in the right lung base. There are no pleural effusions. There is no pneumothorax. The bony thorax appears intact. IMPRESSION: Scar versus atelectasis right base. Reviewed, Interpreted and Dictated by Isauro Mckeon MD Transcribed by Elma Choi Authenticated and [facility]
== END 2024-03-27 23:59 | disposition home or self-care (01) ==
LOC: RAD 11:06
PROVIDERS: PCP Nurse Practitioner; Visit Provider Nurse Practitioner
DX: R07.1 Chest pain on breathing (principal)
CPT/HCPCS: 71046

== ENCOUNTER 2024-04-23 12:55 | Outpatient (CLI) | payer BC, SELFPAY ==
--- NOTE | 2024-04-23 12:55 | US_ITS ---
FINAL REPORT TECHNIQUE: Limited sonographic images of the thyroid were obtained. CLINICAL HISTORY: thyroid nodules COMPARISON: 04/17/2023 FINDINGS: The right lobe of the thyroid measures 4.0 x 1.1 x 1.2 cm. There is an 4 mm isoechoic nodule which is stable. The left lobe of the thyroid measures 3.5 x 1.2 x 1.1 cm. There is an oval, isoechoic nodule in the posterior lobe measuring up to 9 mm on sagittal images, unchanged from previous. Partially calcified nodule measuring 5 mm is unchanged. No new lesions evident. The isthmus measures 2 mm. IMPRESSION: Stable appearing TI-RADS category 3 and TI-RADS category 4 nodules. Given small size, no specific recommendations for follow-up, benign etiology is likely. Reviewed, Interpreted and Dictated by Darin Sanders MD Transcribed by Kaitlyn Ovalle Authenticated and . [facility]
== END 2024-04-23 23:59 | disposition home or self-care (01) ==
LOC: RAD 12:55
PROVIDERS: PCP Family Medicine; Visit Provider Nurse Practitioner
DX: E04.2 Nontoxic multinodular goiter (principal)
CPT/HCPCS: 76536

== ENCOUNTER 2024-11-12 10:53 | Outpatient (CLI) | payer BC, SELFPAY ==
[2024-11-12 11:38] LABS: Alanine Aminotransferase 27 U/L (12-78); Albumin Level 3.9 g/dl (3.5-5.0); Albumin/Globulin Ratio 1.8 (1.1-1.8); Alkaline Phosphatase 60 U/L (38-126); Anion Gap 8.6 mEq/L (5-15); Aspartate Amino Transferase 31 U/L (14-36); Bilirubin,Total 0.4 mg/dl (0.2-1.3); Blood Urea Nitrogen 7 mg/dl (7-17); Calcium 9.3 mg/dl (8.4-10.2); Carbon Dioxide 29 mmol/L (22.0-30.0); Chloride 106 mmol/L (98-107); Estimated Glomerular Filt Rate 79 ml/min (>60); GFR (African American) 96 ML/MIN (>60); Globulin 2.2 g/dL (1.3-3.2); Glucose 55 mg/dl (74-100); Potassium 3.6 mmoL/L (3.5-5.1); Sodium 140 mmol/L (136-145); Total Protein,Serum 6.1 g/dl (6.3-8.2)
== END 2024-11-12 23:59 | disposition home or self-care (01) ==
LOC: LAB 10:54
PROVIDERS: PCP Nurse Practitioner; Visit Provider Internal Medicine
DX: Z51.81 Encounter for therapeutic drug level monitoring (principal)
CPT/HCPCS: 36415; 80053

== ENCOUNTER 2025-01-25 12:58 | Outpatient (CLI) | payer BC, SELFPAY ==
--- NOTE | 2025-01-25 13:03 | XR_ITS ---
FINAL REPORT CLINICAL HISTORY: RIB PAIN LT SIDE from fall few weeks ago COMPARISON: None FINDINGS: A single view of the chest with 3 views of the left ribs were obtained. There is a right basilar opacity, atelectasis versus scar. There appears to be suture present in the right lateral aspect of the lung. No pneumothorax is identified. No displaced rib fracture identified. IMPRESSION: No displaced rib fracture or pneumothorax is identified. Right basilar opacity, atelectasis versus scar. Reviewed, Interpreted and Dictated by Tasia Chung MD Transcribed by Elma Choi Authenticated and [facility]
== END 2025-01-25 23:59 | disposition home or self-care (01) ==
LOC: RAD 12:59
PROVIDERS: PCP Nurse Practitioner; Visit Provider Nurse Practitioner
DX: R07.81 Pleurodynia (principal)
CPT/HCPCS: 71101

== ENCOUNTER 2025-05-13 08:22 | Outpatient (CLI) | payer BC, SELFPAY ==
--- OUTSIDE RECORDS SUMMARY | 2025-03-30 14:00 | XMS_ITS | Encounter Summary ---
Author Organization Healthcare Address [address] [place] [address] Care Team Providers Care Precipitation Equipment Tender Name Role Phone Brandon Gautam MD Unavailable [phone] Angel Pond MD Primary Care Provider [phone] Reason for Referral * Consultation (Routine) - Authorized Specialty Diagnoses / Procedures Referred By Contac t Referred To Contact Diagnoses LOUIS (obstructive sleep apnea) Brittany Oakes APRN [address] [place] [address] Phone: tel: fax: Referral ID Status Reason Start Date Expiration Date V isits Requested Visits Authorized [id number] Authorized 03/30/2025 09/29/2026 1 1 Reason for Visit * Reason Comments 3 month follow-up Encounter Details Date Type Department Care Team (Late st Contact Info) Description 03/30/2025 2:00 PM EDT Office Visit [facility] Sleep Disorder Center [address] [place] [address] Brittany Oakes APRN [address] [place] [address] LOUIS (obstructive sleep apnea) (Primary [...] pleasure of seeing Nancyjamari Gutierrez at the [facility] with/for 3 month follow-up. Visit Type: Established patient Telehealth Statement Patient Verification Patient identity has been confirmed using name and date of ? Yes Authorizations and Agreements/Telemedicine Consent sent and consent confirmed? Yes Patient Location: Home/Other Patient confirms they are physically located in [place]? Yes If the patient is not physically located in [place], the provider has confirmed with [facility] thatthe provider is authorized to provide services in patient's stated location? N/A Provider Location: [facility] facility Audio and video or audio only? [...] to receive a different mask style from [facility] due to insurance barriers. Because of this, [...] free 06/12/2016, 08/27/2017, 10/07/2023 Moderna COVID-19 Vaccine (Partner Integration Planner) 12+ years 03/08/2021, 04/06/2021, 10/13/2021 Moderna COVID-19 [...] Laterality Date BRONCHOSCOPY HYSTERECTOMY N/A Hysterectomy from [facility] KNEE SURGERY N/A Knee Surgery from [facility] LUNG BIOPSY SALPINGOOPHORECTOMY N/A Salpingo-oophorectomy Bilateral from [facility] TYMPANOSTOMY TUBE PLACEMENT N/A Ear Pressure Equalization Tube, Insertion, Bilaterally from [facility] [3] Family History Problem Relation Name Age [...] Description 06/30/2025 2:00 PM EDT Office Visit [facility] Sleep Disorder Center [address] [place] [address] Brittany Oakes APRN [address] [place] [address] 07/07/2025 9:00 AM EDT Consult Medical Office Building Urology [address] [facility] [address] [facility], [address] [place] [address] Leonela Patterson APRN, DNP [address] [place] [address] Scheduled Referrals Name Type Priority [...] documented as of this encounter Care Teams Precipitation Equipment Tender Relationship Specialty Start Date End Date Angel Pond MD [address] [place] [address] [address] [place] [address] PCP - General 09/11/22 Brandon Gautam MD [address] [place] [address] Referring Physician 01/04/22 documented as of this encounter
--- OUTSIDE RECORDS SUMMARY | 2025-05-13 08:26 | XMS_ITS | Encounter Summary ---
Author Organization [facility] ([place], [place], [place], [place]) Address [address] [place] [address] Care Team Providers Care Freight Weigher Name Role Phone Unavailable Primary Care Provider Unavailabl e Encounter Details Date Type Department Care Team (Late st Contact Info) Description 10/02/2021 Transcribed Document [facility] [place] [facility] [place] [address] ProviderTammi MD [address] [place] [address] Social History Tobacco Use Types Packs/Day Years Used Date Smoking Tobacco: Never Assessed Comments Unknown Sex and Gender Information Value Date Recorded Sex Assigned at Not on file Legal Sex Female 5:43 PM CDT Gender Identity Not on file Sexual Orientation Not on file documented as of this encounter Miscellaneous Notes * Cerner Conversion Note - Tammi Lam MD - 10/02/2021 8:45 AM CARRIAGE FEEDER [facility] Entered On: 10/02/2021 8:47 EST Performed On: 10/02/2021 8:45 EST by Miguelina Cordero, PROPOSAL DEVELOPMENT MANAGER Patient Resource [facility] Provider Status : EST Other Established Provider Name : Adam Beka Patient Phone Number : [phone] Patient Insurance Type : Commercial (ex. [employer] PPO, [employer] HMO) Source of Referral : Case management Location of Patient : Case management referral Primary Care Scheduled : Yes Primary Care Scheduled Type : Non [facility] Primary Care Provider Name : Adam Ireland Primary Care Appointment Date/Time : 10/09/2021 10:15 EST Specialty Care Scheduled : Yes Specialty Type Scheduled1 : [facility] Cardiothroacic Surgery [facility] Cardi[facility]oracic Provider Name : Carmen Dawkins [facility] Cardi[facility]acic Appointment Date/Time : 10/10/2021 11:15 EST Qualify for Diabetes and/or Nutrition Referral : No Wound Care Appointment Made : No Why Patient Visited ED- Specialty spent : Other How Patient Arrived at ED : Other Primary Language : Czech [facility] Comment : appts have been made, pt contacted Follow Up Needed : No Miguelina Cordero, PROPOSAL DEVELOPMENT MANAGER - 10/02/2021 8:45 EST documented in this encounter Plan of Treatment Not on file documented as of this encounter Visit Diagnoses Not on filedocumented in this encounter
--- OUTSIDE RECORDS SUMMARY | 2025-05-13 08:26 | XMS_ITS | Clinical Summary ---
Author Organization [employer] ([place], [place], [place], [place]) Address [address] [place] [address] Care Team Providers Care Reinsurance Analyst Name Role Phone Unavailable Primary Care Provider Unavailabl e Social History Tobacco Use Types Packs/Day Years Used Date Smoking Tobacco: Never Assessed Comments Unknown Sex and Gender Information Value Date Recorded Sex Assigned at Not on file Legal Sex Female 5:43 PM CDT Gender Identity Not on file Sexual Orientation Not on file Plan of Treatment Not on file
--- OUTSIDE RECORDS SUMMARY | 2025-05-13 08:26 | XMS_ITS | Encounter Summary ---
Author Organization [employer] ([place], [place], [place], [place]) Address [address] [place] [address] Care Team Providers Care Regional Sales Trainer Name Role Phone Unavailable Primary Care Provider Unavailabl e Encounter Details Date Type Department Care Team (Late st Contact Info) Description 10/02/2021 Transcribed Document [facility] [place] [facility] [place] [address] ProviderTammi MD [address] [place] [address] Social History Tobacco Use Types Packs/Day Years Used Date Smoking Tobacco: Never Assessed Comments Unknown Sex and Gender Information Value Date Recorded Sex Assigned at Not on file Legal Sex Female 5:43 PM CDT Gender Identity Not on file Sexual Orientation Not on file documented as of this encounter Miscellaneous Notes * Cerner Conversion Note - Tammi Lam MD - 10/02/2021 2:33 PM MEDICAL ACCOUNTANT UM Authorization Entered On: 10/02/2021 14:34 EST Performed On: 10/02/2021 14:33 EST by Mary Mae, Friction Welding Machine Operator Primary Insurance Authorization Authorization and Policy Numbers : Insurance 1 Health Plan: [facility] Policy Number: [id number] Authorization Number: [id number] Insurance Primary Name : [facility] Policy Number: [id number] Authorization Status-Primary : Awaiting callback Auth/Referral Contact Name-Primary : DC Authorization Number-Primary : [id number] Number of Days Authorized-Primary : 2 Day(s) Authorized Service Begin Date-Primary : 09/25/2021 EST Authorized Service End Date-Primary : 09/27/2021 EST Authorization Comments-Primary : Discharge date and summary as well as continued stay clinical 09/28 - discharge faxed. Historical Authorization Comments-Primary : Comment 1: Clinicals faxed via [employer] for 09/26-09/27. (VIJAY MASON, Rn-Utilization Review 09/27/2021 12:03) Comment 2: Continued stay authorized per fax 09/27/21 @ 0112. Total days approved x3. (Mary Mae, Friction Welding Machine Operator 09/27/2021 07:23) Comment 3: Clinicals faxed via [employer] (VIJAY MASON, Rn-Utilization Review 09/26/2021 09:35) Comment 4: [place] approved per Star note for 1 day inpt (SARITHA BARNES, RN-Utilization Review 09/20/2021 13:51) Comment 5: per [facility]AR [place] inpt auth is PENDING (MARGARITA LUGO, Industrial Equipment Mechanic 09/19/2021 12:53) Mary Mae, Friction Welding Machine Operator - 10/02/2021 14:33 EST documented in this encounter Plan of Treatment Not on file documented as of this encounter Visit Diagnoses Not on filedocumented in this encounter
--- OUTSIDE RECORDS SUMMARY | 2025-05-13 08:26 | XMS_ITS | Encounter Summary ---
Author Organization [employer] ([place], [place], [place], [place]) Address [address] [place] [address] Care Team Providers Care Therapist Speech Name Role Phone Unavailable Primary Care Provider Unavailabl e Encounter Details Date Type Department Care Team (Late st Contact Info) Description 09/29/2021 Transcribed Document [facility] [place] Medicine [facility] [place] [address] ProviderTammi MD [address] [place] [address] Social History Tobacco Use Types Packs/Day Years Used Date Smoking Tobacco: Never Assessed Comments Unknown Sex and Gender Information Value Date Recorded Sex Assigned at Not on file Legal Sex Female 5:43 PM CDT Gender Identity Not on file Sexual Orientation Not on file documented as of this encounter Miscellaneous Notes * Cerner Conversion Note - Tammi Lam MD - 09/29/2021 10:27 AM CHANGE MANAGEMENT COORDINATOR Final Discharge Planning Entered On: 09/29/2021 10:31 EST Performed On: 09/29/2021 10:27 EST by KRYSTEN LOPEZ RN-Burglar Alarm Superintendent Final Discharge Planning Discharge Arrangements : Patient Post-Acute Information Patient Name: ZOHRA GUTIERREZ Gender: Female : [birth year] Age: 40 Years No Post-Acute Placement(s) Listed No Post-Acute Service(s) Listed No [place] Referral(s) Listed Patient Offered Choice/Affiliations Explained : Yes (Comment: Patient was offered a list of DME providers that included CMS star ratings but did not have a preference for provider. [KRYSTEN LOPEZ RN-Burglar Alarm Superintendent - 09/29/2021 10:27 EST] ) Designation of Choice Signed : Yes Transportation Needs : Family/Friend Follow Up Appointment Scheduled : No (Comment: List of follow up appointments sent to Patient Access to schedule. [KRYSTEN LOPEZ, RN-Burglar Alarm Superintendent - 09/29/2021 10:27 EST] ) Is Patient High/Moderate Readmission Risk? : No Patient/Family Notified of Plan : Yes Patient/Family Notified : Patient Is Patient Ready for Discharge? : Yes Physician Notified Patient is Ready for Discharge? : Yes Discharge To Care Management : Home/Residential/Half-Way or Self Care -01 KRYSTEN LOPEZ RN-Burglar Alarm Superintendent - 09/29/2021 10:27 EST Final Narrative Note Final Narrative Note : RAR Low ELOS: 4 days HD#4 DCP: Discharge home on 3 liters of Oxygen with [facility]. KRYSTEN LOPEZ RN-Burglar Alarm Superintendent - 09/29/2021 10:27 EST Electronically signed by Raheem Villavicencio Conversion It Senior Software Engineer [employer] at 02/20/2023 7:19 AM CDT documented in this encounter Plan of Treatment Not on file documented as of this encounter Visit Diagnoses Not on filedocumented in this encounter
--- OUTSIDE RECORDS SUMMARY | 2025-05-13 08:26 | XMS_ITS | Encounter Summary ---
Author Organization [employer] ([place], [place], [place], [place]) Address [address] [place] [address] Care Team Providers Care Outdoor Emergency Care Technician Name Role Phone Unavailable Primary Care Provider Unavailabl e Encounter Details Date Type Department Care Team (Late st Contact Info) Description 10/02/2021 Transcribed Document [facility] [place] Medicine [facility] [place] [address] ProviderTammi MD [address] [place] [address] Social History Tobacco Use Types Packs/Day Years Used Date Smoking Tobacco: Never Assessed Comments Unknown Sex and Gender Information Value Date Recorded Sex Assigned at Not on file Legal Sex Female 5:43 PM CDT Gender Identity Not on file Sexual Orientation Not on file documented as of this encounter Miscellaneous Notes * Cerner Conversion Note - Tammi Lam MD - 10/02/2021 12:43 PM COMMUNICATION ANALYST Please Modify Before Signing CLINICAL DOCUMENTATION CLARIFICATION FORM: Dear : __Juancho Date: 10/02/21 Please exercise your independent, professional judgment in responding to the clarification form. Clinical indicators are provided on the bottom of this form for your review Please check appropriate box(es): [ ] Acute Hypoxic Respiratory Failure: related to chronic condition (mycobacterium avium complex/recurrent pneumonia) [X ] Acute On Chronic Hypoxic Respiratory Failure: related to chronic condition (mycobacterium avium complex/recurrent pneumonia) [ ] Acute Respiratory Failure due to other: (etiology) [ ] Chronic Hypoxic Respiratory Failure only [ ] Respiratory Insufficiency [ ] Hypoxia [ ] Other diagnosis [ ] Unable to determine For continuity of documentation, please document condition throughout progress notes and discharge summary. Thank You. To be completed by CDI/Coding staff for physician review: Present Clinical Indicators - Signs / Symptoms / Labs Results and Location in Medical Record [ x ] Shortness of breath / worsening compared to baseline 09/25: Op Report- She has experienced recurrent pneumonia for the last few years. With this, she has also experienced significant shortness of breath, cough her symptoms worsened requiring bronchoscopy. 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 09/28: PN- breathing improved, patient states she needs her oxygen all the time [ x ] Decreased Oxygen Saturation / DC with home oxygen 09/25: Vitals 0610- O2 sat 99% RA (on admission - no home oxygen) 09/25: Vitals 0935- O2 sat 92% 6L simple mask (post-op) 09/26: Vitals 0930- O2 sat 88% 3L NC 09/28: Vitals 0841- O2 sat 86% RA 09/28: Vitals 1316- O2 sat 93% 3L NC 09/29: DC Summary- D/c home today with home O2 [ x ] Opacities in CXR/CT 09/25: CXR- Bilateral basilar predominant pulmonary opacities, concerning for pneumonia. 09/26: CXR- Worsening right lower lobe collapse and right chest wall subcutaneous emphysema. 09/27: Chest CT- 2. Patchy bilateral groundglass opacities which are favored to beinfectious or inflammatory. Viral pneumonia is not excluded. 3. Bilateral lower lobe atelectasis or pneumonia. Present Risk Factors Results and Location in Medical Record [ x ] Chronic pulmonary infections / Pneumonia 09/25: H&P - pt has had repeated lung infections for 2 years. 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 [ x ] Tobacco use / exposure 09/25: H&P- 0.5 ppd smoker -5-9 cigarettes & uses Vape every once in a while Present Treatments Results and Location in Medical Record [ x ] Oxygen / DC home on Oxygen 09/25: MD orders- Oxygen per NC - titrate 09/29: DC Summary- DC home on O2 3 L NC [ x ] Monitoring of oxygenation status 09/25: orders- Continuous Pulse oximetry monitoring [ x ] Incentive Spirometer 09/26: orders- Encouraged Incentive Spirometer [ x ] Serial CXR 09/25-09/29: orders- Serial CXR 09/27: orders- CT chest [ x ] Diuresis 09/27: orders- IV Lasix 40 mg [x ] Telemetry 09/25: orders- Transfer from Med/Surg to Telemetry CDS/Tour Actor Signature: __ELIUD Plummer, RN, CDS Phone #: __[phone] Acute Respiratory Failure: ABG pH < 7.35 or > 7.45; Decreased oxygen saturation (<90% room air or < 95% on oxygen); PCO2 > 50 mm Hg; PO2 < 60 mm Hg; Labored or rapid respirations ARDS: Dx Criteria [[place] ARDS]: Respiratory symptoms within one week of a known clinical insult (e.g. shock, infection, surgery, trauma) Bilateral opacities in CXR/Chest CT not due to CHF or fluid This is a permanent part of the Medical Record Q53 2020 [facility] Reviewed: 02/2021 Electronically signed by Raheem Villavicencio Conversion Vulcanizer Rubber Plate Cerner at 02/20/2023 7:13 AM CDT documented in this encounter Plan of Treatment Not on file documented as of this encounter Visit Diagnoses Not on filedocumented in this encounter
--- OUTSIDE RECORDS SUMMARY | 2025-05-13 08:26 | XMS_ITS | Encounter Summary ---
Author Organization [employer] ([place], [place], [place], [place]) Address [address] [place] [address] Care Team Providers Care Plug Cutter Name Role Phone Unavailable Primary Care Provider Unavailabl e Encounter Details Date Type Department Care Team (Late st Contact Info) Description 09/29/2021 Transcribed Document [facility] [place] [address] [place] [address] ProviderTammi MD [address] [place] [address] Social History Tobacco Use Types Packs/Day Years Used Date Smoking Tobacco: Never Assessed Comments Unknown Sex and Gender Information Value Date Recorded Sex Assigned at Not on file Legal Sex Female 5:43 PM CDT Gender Identity Not on file Sexual Orientation Not on file documented as of this encounter Miscellaneous Notes * Cerner Conversion Note - Tammi ProviderMD - 09/29/2021 11:54 AM LEASE ADMINISTRATOR Nursing Discharge Summary Entered On: 09/29/2021 11:54 EST Performed On: 09/29/2021 11:54 EST by Ivett Mckeon Virtual RN Discharge Documentation Discharge Instructions Reviewed With, Opportunity For Questions Given : Patient, Spouse Patient Education Completed : Yes Teaching Method : Explanation, Printed materials Teaching Evaluation : Verbalizes understanding Education Comment : Meds, follow ups, conditions, restricitions Ivett Mckeon Virtual RN - 09/29/2021 11:54 EST Electronically signed by Saud [facility] Conversion Fabrication Welder Cerner at 02/20/2023 7:25 AM CDT documented in this encounter Plan of Treatment Not on file documented as of this encounter Visit Diagnoses Not on filedocumented in this encounter
--- OUTSIDE RECORDS SUMMARY | 2025-05-13 08:26 | XMS_ITS | Encounter Summary ---
Author Organization [employer] ([place], [place], [place], [place]) Address [address] [place] [address] Care Team Providers Care Accounts Payable Analyst Name Role Phone Unavailable Primary Care Provider Unavailabl e Encounter Details Date Type Department Care Team (Late st Contact Info) Description 09/29/2021 Transcribed Document [facility] [place] [address] [place] [address] ProviderTammi MD [address] [place] [address] Social History Tobacco Use Types Packs/Day Years Used Date Smoking Tobacco: Never Assessed Comments Unknown Sex and Gender Information Value Date Recorded Sex Assigned at Not on file Legal Sex Female 5:43 PM CDT Gender Identity Not on file Sexual Orientation Not on file documented as of this encounter Miscellaneous Notes * Cerner Conversion Note - Tammi ProviderMD - 09/29/2021 9:28 AM GROCERY SHOPPER Stroke/Warfarin Instructions Entered On: 09/29/2021 9:28 EST Performed On: 09/29/2021 9:28 EST by Ivett Mckeon Virtual RN Stroke/Warfarin Instructions Stroke/TIA Discharge Ins : N/A Warfarin Discharge Ins : N/A Ivett Mckeon Virtual RN - 09/29/2021 9:28 EST Electronically signed by Saud [facility] Conversion Electric Meter Inspector Cerner at 02/20/2023 7:23 AM CDT documented in this encounter Plan of Treatment Not on file documented as of this encounter Visit Diagnoses Not on filedocumented in this encounter
--- OUTSIDE RECORDS SUMMARY | 2025-05-13 08:26 | XMS_ITS | Referral Summary ---
Author Organization [employer] ([place], [place], [place], [place]) Address [address] [place] [address] Care Team Providers Care Garland Maker Name Role Phone Unavailable Primary Care Provider [...]
--- OUTSIDE RECORDS SUMMARY | 2025-05-13 08:26 | XMS_ITS | Encounter Summary ---
Author Organization Healthcare Address [address] [place] [address] Care Team Providers Care Cattle Care Worker Name Role Phone Brandon Gautam MD Unavailable [phone] Angel Pond MD Primary Care Provider [phone] Encounter Details Date Type Department Care Team (Late st Contact Info) Description 05/20/2023 Lab Requisition [facility] [address] [place] [address] Vega Willett, DO [address] [place], [place] [id number] Routine general medical examination at a health care facility Social History Tobacco Use Types Packs/Day Years Used Date Smoking Tobacco: Former Cigarettes 0.5 - 2021 Passive Smoke Exposure: Never Smokeless Tobacco: Never Alcohol Use Standard Drinks/Week Comments No 0 (1 standard drink = 0.6 oz pur e alcohol) PHQ-2 Answer Date Recorded Patient Health Questionnaire-2 Score 0 11/21/2022 Comments Unknown Sex and Gender Information Value Date Recorded Sex Assigned at Not on file Legal Sex Female 8:23 PM EDT Gender Identity Not on file Sexual Orientation Not on file documented as of this encounter Plan of Treatment Upcoming Encounters Date Type Department Care Team (Late st Contact Info) Description 06/30/2025 2:00 PM EDT Office Visit [facility] [address] [place] [address] Brittany Oakes, ASSOCIATE TEAM PHYSICIAN [address] [place] [address] 07/07/2025 9:00 AM EDT Consult Medical Office Building Urology [address] [facility] [place] [address] Leonela Patterson, ASSOCIATE TEAM PHYSICIAN, DNP [address] [place] [address] documented as of this encounter Procedures Procedure Name Priority Date/Time Associated Diagnosis Comments VITAMIN D 25 HYDROXY Routine 05/20/2023 6:52 AM EDT Routine general medical examination at a health care facility TSH Routine 05/20/2023 6:52 AM EDT Routine general medical examination at a health care facility BASIC METABOLIC PANEL, PLASMA Routine 05/20/2023 6:52 AM EDT Routine general medical examination at a health care facility documented in this encounter Results * TSH (05/20/2023 6:52 AM EDT) Thyroid Stimulating Hormone, Plasma 2.99 0.40 - 4.20 uIU/mL 05/20/2023 11:48 AM EDT [facility] Blood Venous blood specimen / Unknown Venipuncture / Unknown 05/20/2023 6:52 AM EDT 05/20/2023 7:44 AM EDT Narrative [facility] - 05/20/2023 11:48 AM EDT Trimester Specific Ranges TSH ( IU/mL) 1st Trimester 0.1 - 3.0 2nd Trimester 0.19 - 4.06 3rd Trimester 0.3 - 3.7 us Vega Willett DO LAB BLOOD ORDERABLES Final Result [facility] [address] [place] [address] * Vitamin D 25 Hydroxy (05/20/2023 6:52 AM EDT) Vitamin D 25 Hydroxy 20.8 20.0 - 80.0 ng/mL 05/20/2023 12:38 PM EDT [facility] Comment: Vitamin D, 25-Hydroxy reference range, age 18 years and up: Deficiency: <12 ng/mL Insufficiency: 12 to 19 ng/mL Sufficiency: 20 to 80 ng/mL Possible toxicity: >100 ng/mL Blood Venous blood specimen / Unknown Venipuncture / Unknown 05/20/2023 6:52 AM EDT 05/20/2023 7:48 AM EDT Vega Willett DO LAB BLOOD ORDERABLES Final Result [facility] [address] [place] [address] * (ABNORMAL) Basic metabolic panel (05/20/2023 6:52 AM EDT) Glucose, Plasma 88 74 - 99 mg/dL 05/20/2023 11:48 AM EDT [facility] BUN, Plasma 8 7 - 21 mg/dL 05/20/2023 11:48 AM EDT [facility] Creatinine, Plasma 0.91 0.60 - 1.10 mg/dL 05/20/2023 11:48 AM EDT [facility] BUN/Creatinine Ratio 9 05/20/2023 11:48 AM EDT [facility] Sodium, Plasma 143 136 - 145 mmol/L 05/20/2023 11:48 AM EDT [facility] Potassium, Plasma 3.9 3.7 - 4.8 mmol/L 05/20/2023 11:48 AM EDT [facility] Chloride, Plasma 104 97 - 107 mmol/L 05/20/2023 11:48 AM EDT [facility] CO2, Plasma 30(H) 22 - 29 mmol/L 05/20/2023 11:48 AM EDT [facility] Anion Gap 9 6 - 16 mmol/L 05/20/2023 11:48 AM EDT [facility] Total Calcium, Plasma 8.9 8.9 - 10.2 mg/dL 05/20/2023 11:48 AM EDT [facility] eGFRcr 82.0 mL/min/1.7 3m*2 05/20/2023 11:48 AM EDT [facility] Comment: Reported eGFRcr in mL/min/1.73m2 is based the CKD-EPI 2021 equation that does not use a race coefficient. Effective 05/30/22 our laboratory changed the eGFR calculation to the CKD-EPI 2021 equation from the previously reported eGFR, based on the MDRD equation. For comparisons between the two equations, please see laboratory website: [email or web address] Blood Venous blood specimen / Unknown Venipuncture / Unknown 05/20/2023 6:52 AM EDT 05/20/2023 7:44 AM EDT us Vega Willett DO LAB BLOOD ORDERABLES Final Result Performing Organization Address City/State/[facility] Co de Phone Number [facility] [address] [place] [address] documented in this encounter Visit Diagnoses Diagnosis Routine general medical examination at a health care facility documented in this encounter Additional Health Concerns Assessment Noted Time A fall risk assessment has been complete d for the patient 11/28/2022 10:15 AM EST A Body Mass Index follow-up plan has been documented for the patient 11/28/2022 11:03 AM EST documented as of this encounter Care Teams Cattle Care Worker Relationship Specialty Start Date End Date Angel Pond MD [address] [place] [address] [address] [place] [id number] PCP - General 09/11/22 Brandon Gautam MD [address] [address] Referring Physician 01/04/22 documented as of this encounter
--- OUTSIDE RECORDS SUMMARY | 2025-05-13 08:26 | XMS_ITS | Encounter Summary ---
Author Organization [employer] ([place], [place], [place], [place]) Address [address] [place] [address] Care Team Providers Care Starter Mechanic Name Role Phone Unavailable Primary Care Provider Unavailabl e Encounter Details Date Type Department Care Team (Late st Contact Info) Description 10/03/2021 Transcribed Document [facility] [place] Family Medicine [facility] [address] ProviderTammi MD [address] [place] [address] Social History Tobacco Use Types Packs/Day Years Used Date Smoking Tobacco: Never Assessed Comments Unknown Sex and Gender Information Value Date Recorded Sex Assigned at Not on file Legal Sex Female 5:43 PM CDT Gender Identity Not on file Sexual Orientation Not on file documented as of this encounter Miscellaneous Notes * [employer]ner Conversion Note - Tammi Lam MD - 10/03/2021 2:56 PM SENIOR SOFTWARE ANALYST UM Authorization Entered On: 10/03/2021 14:56 EST Performed On: 10/03/2021 14:56 EST by SARITHA BARNES RN-Utilization Review Primary Insurance Authorization Authorization and Policy Numbers : Insurance 1 Health Plan: [facility] Policy Number: [id number] Authorization Number: [id number] Insurance Primary Name : [facility] Policy Number: [id number] Authorization Status-Primary : Awaiting callback Auth/Referral Contact Name-Primary : [place] Authorization Number-Primary : [id number] Number of Days Authorized-Primary : 2 Day(s) Authorized Service Begin Date-Primary : 09/25/2021 EST Authorized Service End Date-Primary : 09/27/2021 EST Authorization Comments-Primary : [place] per [employer]iliradha still shows approved for 3 days Historical Authorization Comments-Primary : Comment 1: Discharge date and summary as well as continued stay clinical 09/28 - discharge faxed. (Mary Mae, Channel Process Supervisor 10/02/2021 14:33) Comment 2: Clinicals faxed via [employer] for 09/26-09/27. (VIJAY MASON, Rn-Utilization Review 09/27/2021 12:03) Comment 3: Continued stay authorized per fax 09/27/21 @ 0112. Total days approved x3. (Mary Mae, Channel Process Supervisor 09/27/2021 07:23) Comment 4: Clinicals faxed via [employer] (VIJAY MASON, Rn-Utilization Review 09/26/2021 09:35) Comment 5: [place] approved per [facility] note for 1 day inpt (SARITHA BARNES, RN-Utilization Review 09/20/2021 13:51) Comment 6: per [facility] [place] inpt auth is PENDING (MARGARITA LUGO, Rose Grader 09/19/2021 12:53) SARITHA BARNES RN-Utilization Review - 10/03/2021 14:56 EST documented in this encounter Plan of Treatment Not on file documented as of this encounter Visit Diagnoses Not on filedocumented in this encounter
--- OUTSIDE RECORDS SUMMARY | 2025-05-13 08:26 | XMS_ITS | Encounter Summary ---
Author Organization [employer] ([place], [place], [place], [place]) Address [address] [place] [address] Care Team Providers Care Learning And Development Associate Name Role Phone Unavailable Primary Care Provider Unavailabl e Encounter Details Date Type Department Care Team (Late st Contact Info) Description 10/05/2021 Transcribed Document [facility] [place] [facility] [place] [address] ProviderTammi MD [address] [place] [address] Social History Tobacco Use Types Packs/Day Years Used Date Smoking Tobacco: Never Assessed Comments Unknown Sex and Gender Information Value Date Recorded Sex Assigned at Not on file Legal Sex Female 5:43 PM CDT Gender Identity Not on file Sexual Orientation Not on file documented as of this encounter Miscellaneous Notes * Cerner Conversion Note - Tammi ProviderMD - 10/05/2021 2:17 PM FOOD PROCESSOR UM Authorization Entered On: 10/05/2021 14:18 EST Performed On: 10/05/2021 14:17 EST by Mary Mae, Jewish Thought Professor Primary Insurance Authorization Authorization and Policy Numbers : Insurance 1 Health Plan: [facility] Policy Number: [id number] Authorization Number: [id number] Insurance Primary Name : [facility] Policy Number: [id number] Authorization Status-Primary : Approved Auth/Referral Contact Name-Primary : DC Authorization Number-Primary : [id number] Number of Days Authorized-Primary : 3 Day(s) Authorized Service Begin Date-Primary : 09/25/2021 EST Authorized Service End Date-Primary : 09/28/2021 EST Authorization Comments-Primary : Authorized per Availity - Request approved x4 days. Historical Authorization Comments-Primary : Comment 1: [place] per avalility still shows approved for 3 days (SARITHA BARNES RN-Utilization Review 10/03/2021 14:56) Comment 2: Discharge date and summary as well as continued stay clinical 09/28 - discharge faxed. (Mary Mae, Jewish Thought Professor 10/02/2021 14:33) Comment 3: Clinicals faxed via [employer]ner for 09/26-09/27. (VIJAY MASON, Rn-Utilization Review 09/27/2021 12:03) Comment 4: Continued stay authorized per fax 09/27/21 @ 0112. Total days approved x3. (Mary Mae, Jewish Thought Professor 09/27/2021 07:23) Comment 5: Clinicals faxed via [employer] (VIJAY MASON, Rn-Utilization Review 09/26/2021 09:35) Comment 6: [place] approved per [facility] note for 1 day inpt (SARITHA BARNES, RN-Utilization Review 09/20/2021 13:51) Comment 7: per [facility] [place] inpt auth is PENDING (MARGARITA LUGO, Product/Device Technologist 09/19/2021 12:53) Mary Mae, Jewish Thought Professor - 10/05/2021 14:17 EST documented in this encounter Plan of Treatment Not on file documented as of this encounter Visit Diagnoses Not on filedocumented in this encounter
--- OUTSIDE RECORDS SUMMARY | 2025-05-13 08:27 | XMS_ITS | Encounter Summary ---
Author Organization Healthcare Address [address] 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 documented in this encounter Plan of Treatment Upcoming Encounters Date Type Department Care Team (Late st Contact Info) Description 06/30/2025 2:00 PM EDT Office Visit [facility] [address] [place] [address] Brittany Oakes, MANAGER OF FINANCIAL [address] [place] [address] 07/07/2025 9:00 AM EDT Consult Medical Office Building Urology [address] [facility], [address] [place] [address] Leonela Patterson APRN, DNP [address] [place] [address] documented as of this encounter Visit Diagnoses Diagnosis Rheumatoid arthritis involving multiple sites with positive rheumatoid factor ([facility])- Primary documented in this encounter Additional Health Concerns Assessment Noted Time PHQ-9 Depression Total Score: 3 01/21/20 25 11:43 AM EDT A fall risk assessment has been complete d for the patient 03/30/2025 1:41 PM EDT A Body Mass Index follow-up plan has been documented for the patient 03/30/2025 2:17 PM EDT documented as of this encounter Care Teams Cashier Self Service Gasoline Relationship Specialty Start Date End Date Angel Pond MD [address] [facility] [address] [place] [address] PCP - General 09/11/22 Brandon Gautam MD [address] [facility] [address] [place] [address] Referring Physician 01/04/22 documented as of this encounter
--- OUTSIDE RECORDS SUMMARY | 2025-05-13 08:27 | XMS_ITS | Encounter Summary ---
Author Organization [employer] ([place], [place], [place], [place]) Address [address] [place] [address] Care Team Providers Care Business Operations Coordinator Name Role Phone Unavailable Primary Care Provider Unavailabl e Encounter Details Date Type Department Care Team (Late st Contact Info) Description 09/28/2021 Transcribed Document [facility] [place] [facility] [place] [address] ProviderTammi MD [address] [place] [address] Social History Tobacco Use Types Packs/Day Years Used Date Smoking Tobacco: Never Assessed Comments Unknown Sex and Gender Information Value Date Recorded Sex Assigned at Not on file Legal Sex Female 5:43 PM CDT Gender Identity Not on file Sexual Orientation Not on file documented as of this encounter Miscellaneous Notes * Cerner Conversion Note - Tammi Lam MD - 09/28/2021 7:50 AM CHORUS DANCER Patient: ZOHRA GUTIERREZ Age: 40 years Sex: Female : 1980 Associated Diagnoses: None Author: JESSICA GONZALEZ PA Basic Information Zohra Gutierrez is a 40-year-old female with a history of mycobacterium avium complex. She has experienced recurrent pneumonia for the last few years. With this, she has also experienced significant shortness of breath, cough and fever. She has been treated with antibiotics. In May of 2019 after ankle surgery, her symptoms worsened requiring bronchoscopy. 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 She has had 2 other bronchoscopies since then. She was diagnosed with mycobacterium avium complex. Most recent cultures were negative. She has been experiencing the symptoms again. We have been asked to perform a lung biopsy for diagnostic purposes. 09/26/21: POD # 1/ sp right VATS, right middle lobe lung wedge resection. C/o post operative pain today, refused CT chest today stating I cant breathe Unable to take deep breaths or cough due to pain. Refusing morphine prior to CT chest 09/27/2021: POD #2: Slow progress, complaining of orthopnea, did not go for CT chest yesterday O2???3 L NSR???71 09/28/2021: POD #3, breathing improved, patient states she needs her oxygen all the time Health Status Allergies: Allergies (1) Active Reaction No Known Allergies None Documented Current medications: Medications (8) Active Scheduled: (3) docusate sodium 100 mg cap 100 mg 1 Cap, Oral, BID famotidine 20 mg tab 20 mg 1 Tab, Oral, Q12H potassium bicarb efferves 20 mEq dis tab 20 mEq 1 Tab, Oral, Daily Continuous: (1) D5w/NaCl 0.45% 1,000 mL 1,000 mL, IntraVENous, 40 mL/Hr PRN: (4) acetaminophen/oxyCODONE 325/5 mg tab 2 Tab, Oral, Q4H diphenhydrAMINE 25 mg tab 25 mg 1 Tab, Oral, Q8H diphenhydrAMINE 50 mg/1 mL inj 25 mg 0.5 mL, IV Push, Q8H ondansetron 4 mg/2 mL inj 4 mg 2 mL, IV Push, Q4H Objective VS/Measurements Vital Measurements 09/28/2021 7:43 EST Oxygen Therapy Mode Room air 09/28/2021 5:03 EST Systolic Blood Pressure 107 mmHg Diastolic Blood Pressure 62 mmHg Heart Rate Monitored 61 bpm Oxygen Saturation 93 % LOW General: Alert and oriented, No acute distress. Respiratory: Breath sounds: Right, Diminished, Poor effort. Cardiovascular: Normal rate, 60 beats per minute, Regular rhythm. Gastrointestinal: Soft. Neurologic: Alert, Oriented, No focal deficits. Psychiatric: Cooperative. Review / Management Results review: SEP 26 04:27 138 106 L 6 / H 123 4.2 23 0.80 \. Radiology results Radiology Results (Last 48 hours) [id number] -- 09/25/2021 09:19 CT Chest WO (09/27/2021 12:31) Result: CT OF THE CHEST WITHOUT CONTRASTHISTORY: Post-op day 1 after VATS. Shortness of breath.PROCEDURE: Thin section axial images were obtained from the lung apicesto below the diaphragm without IV contrast administration. Coronalreconstruction images were obtained from the axial data. This study wasperformed with techniques to keep radiation doses as low as reasonablyachievable (ALARA). Individualized dose reduction techniques usingautomated exposure control or adjustment of mA and/or KV according tothe patient size were employed.COMPARISON: None.FINDINGS: There is no axillary lymphadenopathy. There are mildlyprominent mediastinal lymph nodes. For example, a left prevascular lymphnode measures 17 mm. An AP window lymph node measures 21 mm. Hilarlymphadenopathy is not excluded. A right chest tube is present and thereis a very small right pneumothorax. Bilateral lower lobe airspacedisease could be atelectasis or pneumonia. There are patchy groundglassopacities in the upper lobes which are favored to be infectious. Viralpneumonia is not excluded. Subcutaneous air is noted along the rightchest wall. Limited imaging of the unenhanced upper abdomen is without acuteabnormality. No acute osseous abnormality is identified.IMPRESSION: 1. Small right pneumothorax, chest tube in place.2. Patchy bilateral groundglass opacities which are favored to beinfectious or inflammatory. Viral pneumonia is not excluded.3. Bilateral lower lobe atelectasis or pneumonia.4. Lymphadenopathy, favor reactive.Images reviewed, interpreted, and dictated by Tasia Chung MD Impression and Plan 09/26/21 POD # 1 s/p right VATS/ right middle lobe wedge resection Right CT: minimal output, however worsening right lower lobe collapse. CT chest ordered to rule out effusion, however patient refusing CT stating she cannot breathe. Morphine offered to her in radiology to help with pain, patient still refusing. Encouraged IS Percocet 5/325 mg 2 tabs q 4 hr D/c morphine Toradol 15 mg IM x 1 CXR daily 09/27/2021 POD #1: Right VATS/right middle lobe wedge resection CXR: Pending, right lower lobe worsening opacity, without pneumothorax CT chest: Pending, hopefully will agree to it today Right CT: 89/69, continue for drainage O2???3 L Lasix 40 mg IV, KCl 20 mEq daily 09/28/2021 POD#3 s/p right VATS/ middle lobe wedge resection D/c CT today K+ cancelled Encouraged IS Home tomorrow Path pending Electronically signed by Saud, [facility] Conversion Pharmacy Intake Technician Cerner at 02/20/2023 7:23 AM CDT documented in this encounter Plan of Treatment Not on file documented as of this encounter Visit Diagnoses Not on filedocumented in this encounter
--- OUTSIDE RECORDS SUMMARY | 2025-05-13 08:27 | XMS_ITS | Clinical Summary ---
Author Organization [facility] Address [address] [place] [address] Care Team Providers Care Metal Gauge Maker Name Role Phone Brandon Gautam MD Unavailable [phone] Angel Pond MD Primary Care Provider [phone] Allergies Active Allergy Reactions Criticality Noted Date Comments Etanercept Swelling,Rash High 01/01/2022 Medications albuterol 108 (90 Base) MCG/ACT inhaler Inhale 2 puffs every 6 hours as needed for wheezing. Active budesonide-for moterol (Symbicort) 160-4.5 MCG/ACT inhaler Inhale 2 puffs 2 (two) times a day. 2 Active Ubrelvy 100 MG tablet Take 1 tablet (100 mg) by mouth 1 (one) time as needed for migraine. 3 Active Qulipta 60 MG tablet Take 60 mg by mouth daily. 3 Active methocarbamol (Robaxin) 750 MG tablet TAKE 1 TABLET BY MOUTH EVERY 4 HOURS FOR 7 DAYS 4 Active cyclobenzaprin e (Flexeril) 10 MG tablet Take 1 tablet (10 mg) by mouth nightly. 4 Active ARIPiprazole (Abilify) 2 MG tablet Take 1 tablet (2 mg) by mouth daily. 5 Active phentermine (Adipex-P) 37.5 MG tablet Take 1 tablet (37.5 mg) by mouth daily before breakfast. 5 Active polyethylene glycol (Miralax) 17 g packet DISSOLVE 1 PACKET IN 8 OUNCES OF WATER & DRINK ONCE DAILY 5 Active busPIRone (Buspar) 15 MG tablet Take 1 tablet (15 mg) by mouth 2 (two) times a day. Active FLUoxetine (PROzac) 40 MG capsule Take 1 capsule (40 mg) by mouth. Active zolpidem (Ambien) 10 MG tablet take 1 tablet by mouth once daily at bedtime for 30 days 5 Active desvenlafaxine (Pristiq) 50 MG 24 hr tablet TAKE 1 TABLET BY MOUTH ONCE DAILY IN THE MORNING AFTER PROZAC TAPER IS DONE 5 Active Wegovy 1 MG/0.5ML solution auto-injector inject 1 syringe subcutaneously once a week 5 Active Upadacitinib ER (Rinvoq) 15 MG tablet sustained-rele ase 24 hourIndication s: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) TAKE 1 TABLET DAILY 30 tablet Active Active Problems Problem Noted Date Diagnosed Date LOUIS (obstructive sleep apnea) 10/26/2024 Abnormal PFT 07/14/2024 Acute bacterial sinusitis 07/14/2024 Asthma 07/14/2024 Atypical chest pain 07/14/2024 Cardiac tamponade 07/14/2024 Cervical lymphadenopathy 07/14/2024 Dizziness 07/14/2024 Dyspnea on exertion 07/14/2024 Edema of both lower extremities 07/14/2024 Fatigue 07/14/2024 Gastroenteritis 07/14/2024 Hypokalemia 07/14/2024 Impacted cerumen of right ear 07/14/2024 Oral candidiasis 07/14/2024 Otitis media 07/14/2024 Palpitations 07/14/2024 Pleural effusion 07/14/2024 Retracted tympanic membrane 07/14/2024 Ruptured ear drum 07/14/2024 SIRS (systemic inflammatory response syndrome) 0 07/14/2024 Skin abscess 07/14/2024 Suicidal ideation 07/14/2024 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 URI (upper respiratory infection) 07/14/[address] of the chest 11/28/2022 Recurrent infections 11/28/2022 Chronic sinusitis of both maxillary sinuses 11/05 High risk medication use 02/15/2022 Overview (02/15/2022): Montrell 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 01/24/2022 Hx of smoking 01/17/2022 Cough headache 01/07/2022 Folate deficiency 01/06/2022 Overweight 01/05/2022 Moderate persistent asthma without complication 01/05/2022 Anxiety 01/05/2022 Fibromyalgia 01/05/2022 Rheumatoid arthritis involving multiple sites Anemia 01/05/2022 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 Bilateral sensorineural hearing loss 04/03/2017 Bilateral tinnitus 04/03/2017 Otalgia of both ears 04/03/2017 Sensation of fullness in both ears 04/03/2017 Chronic adhesive otitis media 01/31/2017 Dysfunction of eustachian tube 01/31/2017 Hearing loss 01/31/2017 TMJ arthralgia 01/31/2017 Depression with anxiety 03/13/2016 Dyspareunia, female 03/13/2016 Resolved Problems Problem Noted Date Diagnosed Date Resolved Date Pericardial effusion 01/11/2022 022 Encounters Date Type Department Care Team Description 05/10/2025 Refill [facility] Medicine Specialties [address] [place] [address] Porsche Kilgore MD Rheumatoid arthritis involving multiple sites with positive rheumatoid factor ([facility]/HCC) (Primary Dx) 04/12/2025 Refill [facility] Medicine Specialties [address] [place] [address] Porsche Kilgore MD 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) (Primary Dx) 04/05/2025 Travel 03/30/2025 2:00 PM EDT Office Visit [facility] Sleep Disorder Center [address] [place] [address] Brittany Oakes APRN LOUIS (obstructive sleep apnea) (Primary Dx) 03/30/2025 Travel 03/22/2025 Telephone [facility] Urology [address] [place] [address] Natasha Hernandez I, RN Records (Records-bladder stimulator insertion 2019); vd Records from Last 3 Months Immunizations Immunization Administration Dates Next Due Hep A, Adult 03/10/2018 Influenza, Recombinant, inje ctable, preservative free 08/05/2024 Influenza, injectable, quadrivalent 07/26/2020 Influenza, injectable, quadr ivalent, preservative free 10/07/2023,08/27/2017,06/12/2016 Moderna COVID-19 Vaccine (Re d Cap) 12+ years 10/13/2021,04/06/2021,03/08/2021 Pneumococcal Polysaccharide PPV23 07/30/2016 Zoster, Recombinant 11/11/2023,07/18/2023 Family History Medical History Relation Name Comments Diabetes Mother Mom Migraines Mother Mom Thyroid disease Mother Mom Relation Name Status Comments Mother Mom Social History Tobacco Use Types Packs/Day Years Used Date Smoking Tobacco: Former Cigarettes 0.5 23 0 11/04/1998 - 2021 Passive Smoke Exposure: Never Smokeless Tobacco: Never Tobacco Cessation:Counseling Given: Not Answered Alcohol Use Standard Drinks/Week Comments No 0 [...] on file Sexual Orientation Not on file Last Filed Vital Signs Vital Sign Reading Time Taken Comments Blood Pressure 119/83 01/20/2025 11:37 AM EDT Pulse 82 01/20/2025 11:37 AM EDT Temperature 36.5 C (97.7 F) 10/22/2024 8:24 AM EST Respiratory Rate 16 03/31/2024 10:49 AM EDT Oxygen Saturation 98% 01/20/2025 11:37 AM EDT Inhaled Oxygen Concentration - - Weight 72.6 kg (160 lb) 03/30/2025 1:36 PM EDT Height 160 cm (5' 3 ) 03/30/2025 1:36 PM EDT Body Mass Index 28.34 03/30/2025 1:36 PM EDT Plan of Treatment Upcoming Encounters Date Type Department Care Team (Late st Contact Info) Description 06/30/2025 2:00 PM EDT Office Visit [facility] [address] [place] [address] Brittany Oakes APRN [address] [place] [address] 07/07/2025 9:00 AM EDT Consult Medical Office Building Urology [address] [facility], [address] [place] [address] Leonela Patterson APRN, DNP [address] [place] [address] Health Maintenance Due Date Last Done Comments [facility]-HIV Screening 1980 [facility]-Infant/Child/Adol SDOH Screenings 1980 [facility]-Varicella Vaccines (1 of 2 - 13+ 2-dose series) 1995 HPV Vaccines (1 - 3-dose series) 1997 [facility]- SDOH Screenings 2000 [facility]-Adult SDOH Screenings 2000 [facility]-DTaP,Tdap,and Td Vaccines (1 - Tdap) 2001 [facility]-Hepatitis B Vaccines (1 of 3 - 19+ 3-dose series) 2001 [facility]-Pneumococcal Vaccine: Pediatrics (0 to 5 Years) and At-Risk Patients (6 to 49 Years) (2 of 2 - PCV) 07/30/2017 07/30/2016 [facility]-Influenza Vaccine (#1) 07/05/202508/05, 10/07/2023, 07/26/2020, Additional history exists [facility]-Depression Screening 01/20/2026 01/20/2025, 01/02 [facility]-Zoster Vaccines (2 of 2) 2032 11/11/2023, 07/18/2023 [facility]-Hepatitis A Vaccines Aged Out 03/10/2018 No longer eligible based on patient's age to complete this topic [facility]-Diabetes: Hemoglobin A1C Discontinued 01/02/2022 [facility]-Hepatitis C Screening Completed 01/11/2022 [id number] Vaccine Completed 08/05/2024, 08/31/2022, 10/13/2021, Additional history exists [facility]-Obesity Intervention Completed 025, 01/20/2025, 12/30/2024, Additional history exists [facility]-HIB Vaccines Aged Out No longer e ligible based on patient's age to complete this topic [facility]-IPV Vaccines Aged Out No longer e ligible based on patient's age to complete this topic [facility]-Rotavirus Vaccines Aged Out No lo nger eligible based on patient's age to complete this topic Medical Devices Implanted Type Area Sand Molder Device Identifier Shelf Expiration Date Model / Serial / Lot Surescan Interstim 2 Stimulator- Implanted:Qty: 1 on 10/31/2020 Implant Right: Hip Medtronic [id number] / [id number] / Procedures Procedure Name Priority Date/Time Associated Diagnosis Comments HEPATITIS C ANTIBODY W/REFLEX TO HCV QUANT PCR STAT 01/11/2022 4:41 PM EST HEMOGLOBIN A1C Routine 01/02/2022 9:40 AM EST from Last 3 Months or Most Recently Relevant to Health Maintenance Results * Hepatitis C Antibody (01/11/2022 4:41 PM EST) Hepatitis C Antibody Negative Negative 01/11/2022 6:40 PM EST [facility] Blood Venous blood specimen / Unknown Venipuncture / Unknown 01/11/2022 4:41 PM EST 01/11/2022 5:02 PM EST Casey Raygoza MD LAB BLOOD ORDERABLES Final Res ult [facility] [address] [place] [address] * (ABNORMAL) Hemoglobin A1c (01/02/2022 9:40 AM EST) Hemoglobin A1c 5.8(H) <5.7 % 01/02/2022 10:55 AM EST [facility] Blood Venous blood specimen / Unknown Venipuncture / Unknown 01/02/2022 9:40 AM EST 01/02/2022 10:19 AM EST us Aleja Bowman [facility] LAB BLOOD ORDERABLES Final Res ult [facility] [address] [place] [address] from Last 3 Months or Most Recently Relevant to Health Maintenance Insurance ANTHEM Advance Directives * Full Code (Latest Code Status on File) Date Activated Date Inactivated Comments 01/01/2022 11:58 PM 01/11/2022 8:21 PM Question Answer Comments Patient has decision-making capacity? Yes Care Teams Metal Gauge Maker Relationship Specialty Start Date End Date Angel Pond MD [address] [facility] [address] [place] [address] PCP - General 09/11/22 Brandon Gautam MD [address] [facility] [address] [place] [address] Referring Physician 01/04/22
--- OUTSIDE RECORDS SUMMARY | 2025-05-13 08:27 | XMS_ITS | Encounter Summary ---
Author Organization [employer] ([place], [place], [place], [place]) Address [address] [place] [address] Care Team Providers Care Milling Planer Operator Name Role Phone Unavailable Primary Care Provider Unavailabl e Encounter Details Date Type Department Care Team (Late st Contact Info) Description 09/29/2021 Transcribed Document [facility] [place] Medicine [address] [place] [address] ProviderTammi MD [address] [place] [address] Social History Tobacco Use Types Packs/Day Years Used Date Smoking Tobacco: Never Assessed Comments Unknown Sex and Gender Information Value Date Recorded Sex Assigned at Not on file Legal Sex Female 5:43 PM CDT Gender Identity Not on file Sexual Orientation Not on file documented as of this encounter Miscellaneous Notes * Cerner Conversion Note - Tammi ProviderMD - 09/29/2021 5:00 AM ESTATE AGENT Chart Check - Review Order Profile Entered On: 09/29/2021 5:12 EST Performed On: 09/29/2021 5:00 EST by Sirisha Roland RN Chart Check Powerplans Initiated/Discontinued as Appropriate : Yes All Active Orders Reviewed : Yes Sirisha Roland RN - 09/29/2021 5:12 EST Electronically signed by Saud [facility] Conversion Shaping Machine Tender Cerner at 02/20/2023 7:15 AM CDT documented in this encounter Plan of Treatment Not on file documented as of this encounter Visit Diagnoses Not on filedocumented in this encounter
--- OUTSIDE RECORDS SUMMARY | 2025-05-13 08:27 | XMS_ITS | Encounter Summary ---
Author Organization [employer] ([place], [place], [place], [place]) Address [address] [place] [address] Care Team Providers Care Candy Catcher Name Role Phone Unavailable Primary Care Provider Unavailabl e Encounter Details Date Type Department Care Team (Late st Contact Info) Description 09/29/2021 Transcribed Document [facility] [place] Family Medicine [facility] [place] [address] ProviderTammi MD [address] [place] [address] Social History Tobacco Use Types Packs/Day Years Used Date Smoking Tobacco: Never Assessed Comments Unknown Sex and Gender Information Value Date Recorded Sex Assigned at Not on file Legal Sex Female 5:43 PM CDT Gender Identity Not on file Sexual Orientation Not on file documented as of this encounter Miscellaneous Notes * Cerner Conversion Note - Tammi Lam MD - 09/29/2021 8:35 AM FLAT LOCK MACHINE OPERATOR Patient: ZOHRA GUTIERREZ Age: 40 Years Sex: Female : 1980 Admit Date 09/25/2021 09:19 Discharge Date 09/29/21 Primary Care Provider TROY CALVILLO MD-[facility] Discharge Diagnosis Pneumonia involving right lung 09/29/2021 J18.9 ICD-10-CM Procedures SN - Proc - Procedure: Thoracoscopy (09/25/21 08:08:19) Reason for Hospitalization Zohra uGtierrez is a 40-year-old female with a history [...] perform a lung biopsy for diagnostic purposes. Hospital Course 09/26/21 POD # 1 s/p right VATS/ [...] cancelled Encouraged IS Home tomorrow Path pending 09/29/2021 POD #4 CXR improved Encouraged IS at home D/c home today with home O2 if needed Appointment in two weeks Path pending Vital Signs T: 37 ??C TMIN: 36.7 ??C TMAX: 37 ??C HR: 75(Monitored) RR: 18 BP: 109/55 SpO2: 93% Oxygen Settings (Last) Oxygen Therapy Mode: Nasal cannula (09/29/21 08:28:00) Oxygen Flow Rate: 3 Liter/Min (09/29/21 08:28:00) Physical Exam General: Alert and oriented, No acute distress. Respiratory: Breath sounds: Bilateral, Base, Diminished. Cardiovascular: Normal rate, 72 beats per minute, Regular rhythm. Gastrointestinal: Soft. Integumentary: Right VATS incisions healing well. Neurologic: Alert, Oriented, No focal deficits. Psychiatric: Cooperative. Discharge Disposition Home Discharge Follow Up KEITH WADDELL MD-[facility] - Within 2 weeks TROY CALVILLO MD-[facility] - Within 5 to 7 days Discharge Medications (7) Active CeleBREX 200 mg oral capsule 200 mg = 1 Cap, PRN, Oral, BID Cymbalta 60 mg oral delayed release capsule 60 mg = 1 Cap, Oral, BID ethambutol 400 mg oral tablet 1,200 mg = 3 Tab, Oral, Daily gabapentin 800 mg oral tablet 800 mg = 1 Tab, Oral, TID Percocet 5/325 2 Tab, PRN, Oral, Q4H rifAMPin 300 mg oral capsule 300 mg = 1 Cap, Oral, BID Tylenol 325 mg oral tablet 650 mg = 2 Tab, PRN, Oral, Q4H Code Status Start: 09/25/21 9:22:00 EST, Full Code, Continuous Order Current Diet Order Diet, Adult - Ordered -- Start: 09/26/21 7:18:00 EST, Regular Diet, Isolation: Standard Precautions Patient Discharge Summary Orders Discharge Activity: Discharge Activity: Activity as tolerated Diet: Discharge Diet: Resume usual diet as tolerated documented in this encounter Plan of Treatment Not on file documented as of this encounter Visit Diagnoses Not on filedocumented in this encounter
--- OUTSIDE RECORDS SUMMARY | 2025-05-13 08:27 | XMS_ITS | Encounter Summary ---
Author Organization [employer] ([place], [place], [place], [place]) Address [address] [place] [address] Care Team Providers Care Electric Fork Operator Name Role Phone Unavailable Primary Care Provider Unavailabl e Encounter Details Date Type Department Care Team (Late st Contact Info) Description 09/26/2021 Transcribed Document [facility] [place] [facility] [place] [address] ProviderTammi MD [address] [place] [address] Social History Tobacco Use Types Packs/Day Years Used Date Smoking Tobacco: Never Assessed Comments Unknown Sex and Gender Information Value Date Recorded Sex Assigned at Not on file Legal Sex Female 5:43 PM CDT Gender Identity Not on file Sexual Orientation Not on file documented as of this encounter Miscellaneous Notes * Cerner Conversion Note - Tammi ProviderMD - 09/26/2021 2:00 AM ELECTRICAL ACCESSORIES ASSEMBLER Bracelet Form Coverer Details Entered On: 09/26/2021 3:13 EST Performed On: 09/26/2021 2:00 EST by Sirisha Roland RN Order Details Transport Mode Order Detail : Bed (including specialty) Isolation Precautions Order Detail : Standard Precautions Order Detail : 0 IV Order Detail : 1 Oxygen Order Detail : 1 Nurse Collect Order Detail : 0 Lift/Transfer : Moderate assist Central Line Order Detail : No Room Service : Appropriate Arterial Line : No Patient Needs Meds Crushed/Liquid : No Sirisha Roland RN - 09/26/2021 3:12 EST documented in this encounter Plan of Treatment Not on file documented as of this encounter Visit Diagnoses Not on filedocumented in this encounter
--- OUTSIDE RECORDS SUMMARY | 2025-05-13 08:27 | XMS_ITS | Encounter Summary ---
Author Organization Healthcare Address [address] [place] [address] Care Team Providers Care Patrol Man Name Role Phone Brandon Gautam MD Unavailable [phone] Angel Pond MD Primary Care Provider [phone] Reason for Visit * Reason Onset Date Comments Records 03/22/2025 Records-bladder stimulator insertion 2019 Rcvd Records 03/22/2025 Encounter Details Date Type Department Care Team (Late st Contact Info) Description 03/22/2025 Telephone [facility] [address] [place] [address] Natasha Hernandez I, RN [facility] Records (Records-bladder stimulator insertion 2019); vd Records Social History Tobacco Use Types Packs/Day Years [...] encounter Miscellaneous Notes * Telephone Encounter - Emily Montes 04/06/2025 9:07 AM EDT Uploaded 10/31/20 OP Note from [facility] documented in this encounter Plan of Treatment Upcoming Encounters Date Type Department Care Team (Late st Contact Info) Description 06/30/2025 2:00 PM EDT Office Visit [facility] [address] [place] [address] Brittany Oakes, EXPANSION ENVELOPE MAKER HAND [address] [place] [address] 07/07/2025 9:00 AM EDT Consult Medical Office Building Urology [address] [facility], [address] [place] [address] Leonela Patterson EXPANSION ENVELOPE MAKER HAND, DNP [address] [place] [address] documented as of this encounter Visit Diagnoses Not on filedocumented in this encounter Additional Health Concerns Assessment Noted Time PHQ-9 Depression Total Score: 3 01/21/20 25 11:43 AM EDT A fall risk assessment has been complete d for the patient 01/20/2025 11:43 AM EDT A Body Mass Index follow-up plan has been documented for the patient 01/20/2025 12:18 PM EDT documented as of this encounter Care Teams Patrol Man Relationship Specialty Start Date End Date Angel Pond MD [address] [place] [address] [address] [place] [address] PCP - General 09/11/22 Brandon Gautam MD [address] [address] Referring Physician 01/04/22 documented as of this encounter
--- OUTSIDE RECORDS SUMMARY | 2025-05-13 08:27 | XMS_ITS | Encounter Summary ---
Author Organization [employer] ([place], [place], [place], [place]) Address [address] [place] [address] Care Team Providers Care Electronic Assembler Group Leader Name Role Phone Unavailable Primary Care Provider Unavailabl e Encounter Details Date Type Department Care Team (Late st Contact Info) Description 09/26/2021 Transcribed Document [facility] [place] [facility] [place] [address] ProviderTammi MD [address] [place] [address] Social History Tobacco Use Types Packs/Day Years Used Date Smoking Tobacco: Never Assessed Comments Unknown Sex and Gender Information Value Date Recorded Sex Assigned at Not on file Legal Sex Female 5:43 PM CDT Gender Identity Not on file Sexual Orientation Not on file documented as of this encounter Miscellaneous Notes * Cerner Conversion Note - Historical ProviderMD - 09/26/2021 10:25 AM CREDIT VERIFIER Attempt to Treat, PT Entered On: 09/26/2021 10:34 EST Performed On: 09/26/2021 10:25 EST by MARTHA BO PT Attempt to Treat Unable to Treat Due To : Patient Unavailable Inability to Treat Comment : pt is off the floor for CT scan per Nsg. Will check back as time permits Notification : Discussed with NSG MARTHA OB, PT - 09/26/2021 10:33 EST Electronically signed by [facility] Conversion Item Repair Manager Cerner at 02/20/2023 7:22 AM CDT documented in this encounter Plan of Treatment Not on file documented as of this encounter Visit Diagnoses Not on filedocumented in this encounter
--- OUTSIDE RECORDS SUMMARY | 2025-05-13 08:27 | XMS_ITS | Encounter Summary ---
Author Organization [employer] ([place], [place], [place], [place]) Address [address] [place] [address] Care Team Providers Care Cage Loader Name Role Phone Unavailable Primary Care Provider Unavailabl e Encounter Details Date Type Department Care Team (Late st Contact Info) Description 09/28/2021 Transcribed Document [facility] [place] [facility] [place] [address] ProviderTammi MD [address] [place] [address] Social History Tobacco Use Types Packs/Day Years Used Date Smoking Tobacco: Never Assessed Comments Unknown Sex and Gender Information Value Date Recorded Sex Assigned at Not on file Legal Sex Female 5:43 PM CDT Gender Identity Not on file Sexual Orientation Not on file documented as of this encounter Miscellaneous Notes * Cerner Conversion Note - Tammi ProviderMD - 09/28/2021 1:09 PM BACKING IN MACHINE TENDER On Going Discharge Planning Entered On: 09/28/2021 13:11 EST Performed On: 09/28/2021 13:09 EST by ROBERTO JEFFRIES Social Worker Care Management Progress Note Discharge Arrangements : Patient Post-Acute Information Patient Name: ZOHRA CHANDLER Gender: Female : [birth year] Age: 40 Years No Post-Acute Placement(s) Listed No Post-Acute Service(s) Listed No [place] Referral(s) Listed Barriers to Discharge Identified : Clinical Condition of Patient, Follow-Up appointments needed Patient Discharge Goal : Home Is the Patient Meeting Medical Necessity : Yes ROBERTO JEFFRIES Social Worker - 09/28/2021 13:09 EST Narrative Progress Note Narrative Progress Note : HD 3/ELOS 4/POD 3/RRS low on 3 liters =95%- CXR=1. Slight improved lung volumes otherwise no significant interval change.2. Intact right apical chest tube without enlarging right pneumothorax.3. Stable small bilateral pleural effusions with bibasilar atelectasis; per CTS to remove chest tube today, PT followng, DCP: home with family, only home need may be home O2. CM will continue to follow. Historical Progress Note : HD 2/ELOS 4/POD 2/ RRS low - on 3 liter O2, WBC=10.7, CT remain in place - 20cm suction, CT chest= 1. Small right pneumothorax, chest tube in place. 2. Patchy bilateral groundglass opacities which are favored to be infectious or inflammatory. Viral pneumonia is not excluded. 3. Bilateral lower lobe atelectasis or pneumonia. 4. Lymphadenopathy, favor reactive; PT=20' with CT to suction, DCP: home with family support. CM will continue to follow. ROBERTO JEFFRIES, Galley Boy - 09/27/21 17:11:11 ROBERTO JEFFRIES Galley Boy - 09/28/2021 13:09 EST documented in this encounter Plan of Treatment Not on file documented as of this encounter Visit Diagnoses Not on filedocumented in this encounter
--- OUTSIDE RECORDS SUMMARY | 2025-05-13 08:27 | XMS_ITS | Encounter Summary ---
Author Organization [employer] ([place], [place], [place], [place]) Address [address] [place] [address] Care Team Providers Care Warp Scouring Vat Tender Name Role Phone Unavailable Primary Care Provider Unavailabl e Encounter Details Date Type Department Care Team (Late st Contact Info) Description 09/28/2021 Transcribed Document [facility] [place] Family Medicine [facility] [place] [address] ProviderTammi MD [address] [place] [address] Social History Tobacco Use Types Packs/Day Years Used Date Smoking Tobacco: Never Assessed Comments Unknown Sex and Gender Information Value Date Recorded Sex Assigned at Not on file Legal Sex Female 5:43 PM CDT Gender Identity Not on file Sexual Orientation Not on file documented as of this encounter Miscellaneous Notes * Cerner Conversion Note - Tammi ProviderMD - 09/28/2021 2:00 AM TRUCK ASSEMBLER Tong Hooker Details Entered On: 09/28/2021 2:59 EST Performed On: 09/28/2021 2:00 EST by Sirisha Roland RN Order Details Transport Mode Order Detail : Bed (including specialty) Isolation Precautions Order Detail : Standard Precautions Order Detail : 0 IV Order Detail : 1 Oxygen Order Detail : 1 Nurse Collect Order Detail : 0 Lift/Transfer : Minimal Central Line Order Detail : No Room Service : Appropriate Arterial Line : No Patient Needs Meds Crushed/Liquid : No Sirisha Roland RN - 09/28/2021 2:59 EST documented in this encounter Plan of Treatment Not on file documented as of this encounter Visit Diagnoses Not on filedocumented in this encounter
--- OUTSIDE RECORDS SUMMARY | 2025-05-13 08:27 | XMS_ITS | Encounter Summary ---
Author Organization [employer] ([place], [place], [place], [place]) Address [address] [place] [address] Care Team Providers Care Linux Unix Engineer Name Role Phone Unavailable Primary Care Provider Unavailabl e Encounter Details Date Type Department Care Team (Late st Contact Info) Description 09/26/2021 Transcribed Document [facility] [place] Family Medicine [facility] [place] [address] ProviderTammi MD [address] [place] [address] Social History Tobacco Use Types Packs/Day Years Used Date Smoking Tobacco: Never Assessed Comments Unknown Sex and Gender Information Value Date Recorded Sex Assigned at Not on file Legal Sex Female 5:43 PM CDT Gender Identity Not on file Sexual Orientation Not on file documented as of this encounter Miscellaneous Notes * Cerner Conversion Note - Tammi Lam MD - 09/26/2021 10:29 AM HEAT SET OPERATOR Patient: ZOHRA GUTIERREZ Age: 40 years Sex: [...] pain. Refusing morphine prior to CT chest Health Status Allergies: Allergies (1) Active Reaction No Known Allergies None Documented Current medications: Medications (6) Active Scheduled: (3) docusate sodium 100 mg cap 100 mg 1 Cap, Oral, BID famotidine 20 mg/2 mL inj 20 mg 2 mL, IV Push, Q12H ketorolac 30 mg/1 mL inj 15 mg 0.5 mL, IV Push, 1-Time Continuous: (1) D5w/NaCl 0.45% 1,000 mL 1,000 mL, IntraVENous, 40 mL/Hr PRN: (2) acetaminophen/oxyCODONE 325/5 mg tab 2 Tab, Oral, Q4H ondansetron 4 mg/2 mL inj 4 mg 2 mL, IV Push, Q4H Objective VS/Measurements Vital Measurements 09/26/2021 9:30 EST Systolic Blood Pressure 125 mmHg Diastolic Blood Pressure 60 mmHg Heart Rate Monitored 70 bpm Oxygen Saturation 88 % LOW Oxygen Therapy Mode Nasal cannula Oxygen Flow Rate 3 Liter/Min General: Alert and oriented, No acute distress. Respiratory: Breath sounds: Right, Diminished, Poor effort. Cardiovascular: Normal rate, 65 beats per minute, Regular rhythm. Gastrointestinal: Soft. Neurologic: Alert, Oriented, No focal deficits. Review / Management Results review: SEP 26 04:27 138 106 L 6 / H 123 4.2 23 0.80 \. Radiology results Radiology Results (Last 48 hours) [id number] -- 09/25/2021 09:19 CR Chest 1 Vw Portable (09/25/2021 10:20) Result: CLINICAL INDICATION: Tube placement EXAMINATION TECHNIQUE: CR Chest 1 Vw PortableCOMPARISON:None.FINDINGS:Right chest tube placement. No discernible right pneumothorax. Rightchest wall subcutaneous soft tissue emphysema. Low lung volumes.Bilateral basal predominant multifocal diffuse pulmonary opacities.Probable small bilateral pleural effusions. Partially obscuredcardiomediastinal silhouette heart, within normal limits.IMPRESSION:Right chest tube in place without discernible pneumothorax. Bilateralbasilar predominant pulmonary opacities, concerning for pneumonia.Images personally reviewed, interpreted and dictated by Galo Jayavarapu,MBBS. CR Chest 1 Vw Portable (09/26/2021 06:32) Result: PORTABLE CHEST HISTORY: Tube placement.COMPARISON: September 25, 2021.FINDINGS: The heart is normal in size. The mediastinum is unremarkable.There has been interval worsening of the right lower lobe collapse.There is a right chest tube in place without visualized pneumothorax.There has been no change in the left basilar opacities. There isworsening of the right chest wall emphysema. There is gaseous distentionof the stomach. IMPRESSION: 1. Worsening right lower lobe collapse and right chest wall subcutaneousemphysema.2. Right chest tube in place without visualized pneumothorax.Images reviewed, interpreted, and dictated by Dr. Galo Álvarez.Transcribed by April Gudino PA-C. Impression and Plan 09/26/21 POD # 1 [...] 15 mg IM x 1 CXR daily Electronically signed by Raheem Villavicencio Conversion Incident Response Lead Cerner at 02/20/2023 7:18 AM CDT documented in this encounter Plan of Treatment Not on file documented as of this encounter Visit Diagnoses Not on filedocumented in this encounter
--- OUTSIDE RECORDS SUMMARY | 2025-05-13 08:27 | XMS_ITS | Encounter Summary ---
Author Organization Healthcare Address [address] [place] [address] Care Team Providers Care Copper Roller Handler Printing Name Role Phone Brandon Gautam MD Unavailable [phone] Angel Pond MD Primary Care Provider [phone] Reason for Visit * Reason Comments Med Refill Encounter Details Date Type Department Care Team (Late st Contact Info) Description 05/10/2025 Refill [facility] [address] [place] [address] Porsche Kilgore MD [address] [place] [address] Rheumatoid arthritis involving multiple sites [...] Telephone Encounter - Toan Garcia, PharmD - 05/10/2025 7:46 AM EDT Refill request does not meet protocol. Sending to clinic for review. Additional info: Appointment compliance - Patient has not followed up in clinic as requested. Please review for scheduling and if refills are appropriate. documented in this encounter Plan of Treatment Upcoming Encounters Date Type Department Care Team (Late st Contact Info) Description 06/30/2025 2:00 PM EDT Office Visit [facility] [address] [place] [address] Brittany Oakes APRN [address] [place] [address] 07/07/2025 9:00 AM EDT Consult Medical Office Building Urology [address] [facility], [address] [place] [address] Leonela Patterson APRN, DNP [address] [place] [address] documented as of this encounter Visit Diagnoses Diagnosis Rheumatoid arthritis involving multiple sites with positive rheumatoid factor ([facility] Primary documented in this encounter Additional Health Concerns Assessment Noted Time PHQ-9 Depression Total Score: 3 01/21/20 25 11:43 AM EDT A fall risk assessment has been complete d for the patient 03/30/2025 1:41 PM EDT A Body Mass Index follow-up plan has been documented for the patient 03/30/2025 2:17 PM EDT documented as of this encounter Care Teams Copper Roller Handler Printing Relationship Specialty Start Date End Date Angel Pond MD [address] [facility] [address] [place] [address] PCP - General 09/11/22 Brandon Gautam MD [address] [place] [address] Referring Physician 01/04/22 documented as of this encounter
--- OUTSIDE RECORDS SUMMARY | 2025-05-13 08:27 | XMS_ITS | Encounter Summary ---
Author Organization [employer] ([place], [place], [place], [place]) Address [address] [place] [address] Care Team Providers Care Catcher Plug Name Role Phone Unavailable Primary Care Provider Unavailabl e Encounter Details Date Type Department Care Team (Late st Contact Info) Description 09/26/2021 Transcribed Document [facility] [place] Family Medicine [facility] [place] [address] ProviderTammi MD [address] [place] [address] Social History Tobacco Use Types Packs/Day Years Used Date Smoking Tobacco: Never Assessed Comments Unknown Sex and Gender Information Value Date Recorded Sex Assigned at Not on file Legal Sex Female 5:43 PM CDT Gender Identity Not on file Sexual Orientation Not on file documented as of this encounter Miscellaneous Notes * Cerner Conversion Note - Tammi ProviderMD - 09/26/2021 4:31 PM CAR CONDITIONER Initial Discharge Planning Entered On: 09/26/2021 16:34 EST Performed On: 09/26/2021 16:31 EST by ROBERTO JEFFRIES Social Worker Initial Assessment I Previously Documented Living Environment : No qualifying data available. Living Situation : Home Patient Lives With : Spouse Emergency Contact #1 : sheldon Emergency Contact #1 Emergency Contact #1 Relationship : spouse Emergency Contact #2 : n Emergency Contact #2 Phone Number : n Emergency Contact #2 Relationship : n Enter Doctors Name : Adam Ireland Does Patient have PCP Listed? : Yes Legal Guardian : No ROBERTO JEFFRIES Social Worker - 09/26/2021 16:31 EST Initial Assessment II Sensory and Motor Deficits : None Current Home Treatments and Equipment : None ROBERTO JEFFRIES Social Worker - 09/26/2021 16:31 EST Discharge Needs I Anticipated Discharge Date : 09/29/2021 EST Anticipated Discharge To, CM : Home independently, Home with family care, Home with home health Current Home Treatment/Equipment : Current Home Treatment/Equipment No qualifying data available. Documentation Status Complete : Yes ROBERTO JEFFRIES Social Worker - 09/26/2021 16:31 EST Discharge Needs II Professional Skilled Services : Professional Skilled Services No qualifying data available. Needs Assistance with Transportation : No Patient Discharge Goal : Home ROBERTO JEFFRIES Social Worker - 09/26/2021 16:31 EST Narrative Note Narrative Note : Patient is a 40yo female who is POD [address] Mo, currently on 3 liters O2, WBC=18.3, CXR=1. Worsening right lower lobe collapse and right chest wall subcutaneous emphysema. 2. Right chest tube in place without obvious pneumothorax, Chest CT=pending, PT eval=pending, DCP: home with family support. CM will continue to follow for discharge needs and arrangements. ROBERTO JEFFRIES Social Worker - 09/26/2021 16:31 EST documented in this encounter Plan of Treatment Not on file documented as of this encounter Visit Diagnoses Not on filedocumented in this encounter
--- OUTSIDE RECORDS SUMMARY | 2025-05-13 08:27 | XMS_ITS | Encounter Summary ---
Author Organization [employer] ([place], [place], [place], [place]) Address [address] [place] [address] Care Team Providers Care Cuff Setter Lockstitch Name Role Phone Unavailable Primary Care Provider Unavailabl e Encounter Details Date Type Department Care Team (Late st Contact Info) Description 09/26/2021 Transcribed Document [facility] [place] Family Medicine [facility] [place] [address] ProviderTammi MD [address] [place] [id number] Social History Tobacco Use Types Packs/Day Years Used Date Smoking Tobacco: Never Assessed Comments Unknown Sex and Gender Information Value Date Recorded Sex Assigned at Not on file Legal Sex Female 5:43 PM CDT Gender Identity Not on file Sexual Orientation Not on file documented as of this encounter Miscellaneous Notes * [employer]ner Conversion Note - Tammi ProviderMD - 09/26/2021 10:37 AM EXCEPTIONAL CHILDREN TEACHER ASSISTANT Pain Assessment Entered On: 09/27/2021 0:37 EST Performed On: 09/26/2021 22:34 EST by Sirisha Roland RN Intervention Information: acetaminophen-oxyCODONE Performed by Sirisha Roland RN on 09/26/2021 21:34:00 EST acetaminophen-oxyCODONE,2Tab Oral,Pain (Moderate 4-6) Pain Assessment Pain Assessment : Follow-up assessment Pain Scale Goal : 3 Pain Scale Used : 0-10 Scale Pain Improved by Intervention : Yes Sirisha Roland RN - 09/27/2021 0:36 EST Pain Scale Intensity : 3 Sirisha Roland RN - 09/27/2021 0:36 EST Image 4 - Images currently included in the form version of this document have not been included in the text rendition version of the form. documented in this encounter Plan of Treatment Not on file documented as of this encounter Visit Diagnoses Not on filedocumented in this encounter
--- OUTSIDE RECORDS SUMMARY | 2025-05-13 08:27 | XMS_ITS | Encounter Summary ---
Author Organization Healthcare Address [address] [place] [address] Care Team Providers Care Security Representative Name Role Phone Brandon Gautam MD Unavailable [phone] Angel Pond MD Primary Care Provider [phone] Encounter Details Date Type Department Care Team (Latest Contact Info) Description 03/30/2025 Travel Social History Tobacco Use Types Packs/Day Years [...] Description 06/30/2025 2:00 PM EDT Office Visit [facility] [address] [place] [address] Brittany Oakes APRN [address] [place] [address] 07/07/2025 9:00 AM EDT Consult Medical Office Building Urology [address] [facility], [address] [place] [address] Leonela Patterson, GARBAGE PICK UP WORKER, DNP [address] [facility] [address] [place] [address] documented as of this encounter [...] documented as of this encounter Care Teams Security Representative Relationship Specialty Start Date End Date Angel Pond MD [address] [facility] [address] [place], [place] [id number] PCP - General 09/11/22 Brandon Gautam MD [address] [address] Referring Physician 01/04/22 documented as of this encounter
--- OUTSIDE RECORDS SUMMARY | 2025-05-13 08:27 | XMS_ITS | Encounter Summary ---
Author Organization [employer] ([place], [place], [place], [place]) Address [address] [place] [address] Care Team Providers Care Spine Supervisor Name Role Phone Unavailable Primary Care Provider Unavailabl e Encounter Details Date Type Department Care Team (Late st Contact Info) Description 09/29/2021 Transcribed Document [facility] [place] Family [facility] [place] [address] ProviderTammi MD [address] [place] [address] Social History Tobacco Use Types Packs/Day Years Used Date Smoking Tobacco: Never Assessed Comments Unknown Sex and Gender Information Value Date Recorded Sex Assigned at Not on file Legal Sex Female 5:43 PM CDT Gender Identity Not on file Sexual Orientation Not on file documented as of this encounter Miscellaneous Notes * Cerner Conversion Note - Tammi ProviderMD - 09/29/2021 2:00 AM SURGICAL SERVICES MANAGER Ammunition Assembly Ii Laborer Details Entered On: 09/29/2021 2:03 EST Performed On: 09/29/2021 2:00 EST by Sirisha Roland RN Order [...] Crushed/Liquid : No Sirisha Roland RN - 09/29/2021 2:03 EST Electronically signed by Raheem Villavicencio Conversion Transit Vehicle Inspector Cerner at 02/20/2023 7:23 AM CDT documented in this encounter Plan of Treatment Not on file documented as of this encounter Visit Diagnoses Not on filedocumented in this encounter
--- OUTSIDE RECORDS SUMMARY | 2025-05-13 08:27 | XMS_ITS | Encounter Summary ---
Author Organization [employer] ([place], [place], [place], [place]) Address [address] [place] [address] Care Team Providers Care Powder Compounder Name Role Phone Unavailable Primary Care Provider Unavailabl e Encounter Details Date Type Department Care Team (Late st Contact Info) Description 09/29/2021 Transcribed Document [facility] [address] [place] [address] ProviderTammi MD [address] [place] [address] Social History Tobacco Use Types Packs/Day Years Used Date Smoking Tobacco: Never Assessed Comments Unknown Sex and Gender Information Value Date Recorded Sex Assigned at Not on file Legal Sex Female 5:43 PM CDT Gender Identity Not on file Sexual Orientation Not on file documented as of this encounter Miscellaneous Notes * Cerner Conversion Note - Tammi Lam MD - 09/29/2021 9: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 MAC causes two types of infection: ??? Local infection. This is limited to one area. If you have a normal disease-fighting system (immune system), you are more likely to get this type of infection. ??? Disseminated infection. This is an infection that affects all parts of the body. It is more serious than a local infection. You are more likely to get this infection if you have a weak immune system. MAC infections most often affect the lungs. MAC is not contagious. This means that it does not spread from person to person. What are the causes? This condition is caused by two kinds of bacteria, Mycobacterium avium and Mycobacterium intracellulare. These bacteria are often found in drinking water, hot tubs, swimming pools, house dust, and animals. You may become infected from: ??? Breathing in water particles or dust particles that contain the bacteria (contaminated). ??? Eating or drinking something that is contaminated. ??? Drinking milk. MAC bacteria can grow in pasteurized milk. What increases the risk? The following factors may make you more likely to develop this condition: ??? Having HIV or AIDS. ??? Being a child. ??? Being an older woman. ??? Smoking cigarettes. ??? Having long-term (chronic) lung diseases, such as: ? Tuberculosis. ? Chronic obstructive pulmonary disease (COPD). ? Lung cancer. ? Cystic fibrosis. What are the signs or symptoms? Symptoms vary depending on the type of MAC infection you have. Symptoms of a local infection ??? Lymph nodes that are bigger than usual (enlarged). Enlarged lymph nodes may be: ? On one side of the neck. ? Under the jaw. ? Around the ear. ??? Fatigue. ??? Shortness of breath. ??? A long-term cough that produces lots of mucus. ??? Abnormal sounds when breathing. A health care provider may hear this when listening to your lungs. Symptoms of a disseminated infection ??? Fever. ??? Night sweats. ??? Weight loss. ??? Loss of appetite. ??? Fatigue. How is this diagnosed? This condition may be diagnosed based on: ??? Your symptoms. ??? A physical exam. ??? Your medical history. You may also have tests, including: ??? Chest X-ray or CT scan. ??? Blood tests. ??? Test of mucus from your lungs (sputum) or other body fluids to see whether bacteria will grow (culture). ??? Removal of a piece of body tissue to be checked under a microscope (biopsy). How is this treated? Treatment for this condition depends on the type of infection. Treatment may include: ??? Taking antibiotic medicines. You may have to take antibiotics until MAC bacteria have stopped growing in cultures. ??? Surgery to remove infected lymph nodes. After the lymph nodes are removed, antibiotics are usually not needed. In some people with a disseminated infection, treatment with antibiotic medicines may continue for several years. Follow these instructions at home: Medicines ??? Take jnmx-tfr-rxielou and prescription medicines only as told by your health care provider. ??? Take your antibiotic medicine as told by your health care provider. Do not stop taking the antibiotic even if you start to feel better. Eating and drinking ??? Eat a healthy, well-balanced diet. Talk with your health care provider or a diet and training specialist (dietitian) about what food choices are best for you. ??? Drink enough fluid to keep your urine pale yellow. General instructions ??? Seek medical care for any underlying health conditions you have. Follow your health care provider's instructions about how to manage those conditions. ??? Do not use any products that contain nicotine or tobacco, such as cigarettes and e-cigarettes. If you need help quitting, ask your health care provider. ??? Keep all follow-up visits as told by your health care provider. This is important. How is this prevented? Stay up-to-date on your vaccines. ??? Take all of your medicines as told by your health care provider, especially if you have problems with your immune system. ??? Avoid drinking water that may not be clean. Lakes, castano, and other open water sources can contain germs that cause infections. ??? Wash your hands often with soap and water. If soap and water are not available, use hand favor maker. ??? Practice safe food preparation, especially if your immune system is weak because of an underlying illness. ? Store foods at safe temperatures. ? Avoid eating raw or undercooked meats, poultry, fish, shellfish, and eggs. ? Wash and peel fruits and vegetables before eating or cooking them. ? Use separate food preparation surfaces and storage spaces for raw meat and for fruits and vegetables. ? Wash your hands, food preparation surfaces, and utensils thoroughly before and after you handle raw foods. Contact a health care provider if you: ??? Have chills or a fever. ??? Have a cough that does not go away. ??? Have loss of appetite or weight loss. ??? Feel very tired. Get help right away if you: ??? Have a fever for more than 2?3 days. ??? Cough up blood. ??? Have trouble breathing. ??? Have chest pain. Summary ??? Mycobacterium avium complex (MAC) is an infection that is caused by two similar and very common types of bacteria. ??? If you have a normal disease-fighting system (immune system), you are more likely to get an infection that is limited to one area of your body (local infection). ??? If you have a weak immune system, you are likely to get infections in all parts of your body (disseminated infection). ??? Treatment for this condition is difficult because MAC does not respond to many common antibiotic medicines. Treatment depends on the type of infection, and may involve surgery or antibiotics. This information is not intended to replace advice given to you by your health care provider. Make sure you discuss any questions you have with your health care provider. Document Revised: 04/27/2019 Document Reviewed: 11/28/2018 [email or web address] Patient Education ? 2020 [employer]. Pulmonary Medicine Video-Assisted Thoracic Surgery, Care After This sheet gives you information about how to care for yourself after your procedure. Your doctor may also give you more specific instructions. If you have problems or questions, contact your doctor. What can I expect after the procedure? After the procedure, it is common to have: ??? Some pain and soreness in your chest. ??? Pain when you breathe in and cough. ??? Trouble pooping (constipation). ??? Tiredness. ??? Trouble sleeping. Follow these instructions at home: Preventing lung infection ??? Take deep breaths and cough often. This helps clear mucus and opens your lungs. Doing this helps prevent lung infection (pneumonia). ??? Use an incentive spirometer if told. This tool shows how much you fill your lungs with each breath. ??? Coughing may hurt less if you try to support your chest. Try one of these when you cough: ? Hold a pillow on your chest. ? Place both hands flat on your cut or cuts from surgery (incisions). Medicines ??? Take ykod-vir-eeaacpr or prescription medicines only as told by your doctor. ??? If you have pain, take pain medicine before your pain gets very bad. This is important. Doing this will help when you breathe and cough. ??? If you were prescribed an antibiotic medicine, take it as told by your doctor. Do not stop using the antibiotic even if you start to feel better. ??? Ask your doctor if the medicine prescribed to you: ? Requires you to avoid driving or using machinery. ? Can cause trouble pooping (constipation). You may need to take these actions to prevent or treat trouble pooping: ? Drink enough fluid to keep your pee pale yellow. ? Take skmm-xpw-yisygkr or prescription medicines. ? Eat foods that are high in fiber. These include beans, whole grains, and fresh fruits and vegetables. ? Limit foods that are high in fat and processed sugars. These include fried or sweet foods. Bathing ??? Do not take baths, swim, or use a hot tub until your doctor approves. You may take showers. ??? When you take off your bandage (dressing), use soap and water to gently wash your cut from surgery. Do not clean your cut with anything else unless your doctor tells you to do this. Caring for your cut from surgery ??? Follow instructions from your doctor about how to take care of your cut. Make sure you: ? Wash your hands with soap and water for at least 20 seconds before and after you change your bandage. If you cannot use soap and water, use hand favor maker. ? Change your bandage as told by your doctor. ? Leave stitches (sutures), skin glue, layse, or skin tape (adhesive) strips in place. They may need to stay in place for 2 weeks or longer. If tape strips get loose and curl up, you may trim the loose edges. Do not take off tape strips completely unless your doctor says it is okay. ??? Keep your bandage dry until it is taken off. ??? Check your cut every day for signs of infection. Check for: ? More redness, swelling, or pain. ? Fluid or blood. ? Warmth. ? Pus or a bad smell. Activity ??? Avoid activities that use your chest muscles for at least 3?4 weeks. ??? Do not lift anything that is heavier than 10 lb (4.5 kg), or the limit that you are told, until your doctor says that it is safe. ??? Return to your normal activities as told by your doctor. Ask your doctor what activities are safe for you. General instructions ??? If you were given a medicine to help you relax (sedative) during your procedure, it can affect you for many hours. Do not drive or use machinery until your doctor says that it is safe. ??? Do not use any products that contain nicotine or tobacco, such as cigarettes, e-cigarettes, and chewing tobacco. These can delay healing. If you need help quitting, ask your doctor. ??? Stay away when people are smoking (avoid secondhand smoke). ??? If you have a chest tube, care for it as told. ??? Do not travel by airplane during the 2 weeks after your chest tube is taken out, or until your doctor says that this is safe. ??? Wear compression stockings as told by your doctor. These are socks that put pressure on your legs. ??? Keep all follow-up visits as told by your doctor. This is important. Contact a doctor if: ??? You have any of these signs of infection around a cut: ? More redness. ? More swelling. ? More pain. ? Fluid or blood. ? Warmth. ? Pus or a bad smell. ??? You have a fever or chills. ??? You feel like you may vomit or you vomit. ??? Your pain does not get better with medicine. Get help right away if: ??? You have chest pain. ??? You have fast or uneven heartbeats. ??? You get a rash. ??? You are short of breath. ??? You have trouble breathing. ??? You are mixed up (confused). ??? You have trouble talking. ??? You feel weak, light-headed, or dizzy. ??? You faint. These symptoms may be an emergency. Do not wait to see if the symptoms will go away. Get medical help right away. Call your local emergency services (911 in the [place] Do not drive yourself to the hospital. Summary ??? Take deep breaths and cough often. This helps clear mucus and opens your lungs. Doing this helps prevent lung infection (pneumonia). ??? If you have pain, take pain medicine before your pain gets very bad. ??? Check your cut from surgery every day for signs of infection. Contact a doctor if you have signs of infection. ??? Ask your doctor what activities are safe for you. This information is not intended to replace advice given to you by your health care provider. Make sure you discuss any questions you have with your health care provider. Document Revised: 10/21/2020 Document Reviewed: 10/21/2020 [employer] Patient Education ? 2020 [email or web address] Electronically signed by Raheem Villavicencio Conversion Self Propelled Dredge Operator Cerner at 02/20/2023 7:21 AM CDT documented in this encounter Plan of Treatment Not on file documented as of this encounter Visit Diagnoses Not on filedocumented in this encounter
--- OUTSIDE RECORDS SUMMARY | 2025-05-13 08:27 | XMS_ITS | Encounter Summary ---
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 Role Phone Unavailable Primary Care Provider Unavailabl e Encounter Details Date Type Department Care Team (Late st Contact Info) Description 09/29/2021 Transcribed Document [facility] Family Medicine Pending sale to [facility] [place] [address] ProviderTammi MD [address] [place] [address] Social History Tobacco Use Types Packs/Day Years Used Date Smoking Tobacco: Never Assessed Comments Unknown Sex and Gender Information Value Date Recorded Sex Assigned at Not on file Legal Sex Female 5:43 PM CDT Gender Identity Not on file Sexual Orientation Not on file documented as of this encounter Miscellaneous Notes * Cerner Conversion Note - Tammi Lam MD - 09/29/2021 11:40 AM 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 [facility] [place] [address] ZOHRA GUTIERREZ :1980 Visit Time:09/25/2021 Your Visit Summary Your Care Team Admitting Physician - KEITH WADDELL MD-CAT Attending Physician - KEITH WADDELL MD-CAT Primary Care Physician - TROY CALVILLO [facility] Referring Physician - JACQUELINE, NOT LISTED Your Diagnosis Pneumonia involving right lung Pulmonary mycobacterial infection, Pulmonary mycobacterial infection These Are Your Goals Patient Discharge Goal Patient Discharge Goal: Home Discharge Vitals Temperature 37 ??C Heart Rate (Monitored) 75 Respiratory Rate 18 Blood Pressure 109/55 What to do next Instructions From Your Care Team Please STOP taking these home medications: 1. Azithromycin 2. Prednisone Your home Oxygen provider will be [facility] their phone number is [phone]. Someone will deliver a portable tank to your room prior to discharge and make arrangements with you to deliver a concentrator and supplies to your home. Discharge Activity: Activity as tolerated Discharge Diet: Resume usual diet as tolerated Follow-Up Appointments Follow Up with KEITH WADDELL MD-CAT When Within 2 weeks Comments CTS follow up. Call for follow up appointment after the holiday. Bring discharge instructions with you. Where: [address] [facility] [address] [place] [address]- Follow Up with TROY CALVILLO MD-[facility] When Within 5 to 7 days Comments PCP follow up. Call for follow up appointment after the holiday. Bring discharge instructions with you. Where: [address] [place] [address]- Medications What How Much When Instructions Next Dose acetaminophen-oxyCODONE (Percocet 5/ 325 oral tablet) 1 Tablet(s) Oral Every 4 Hours as needed for for pain Printed Prescription available at 1:30pm acetaminophen (Tylenol 325 mg oral tablet) 2 Tablet(s) Oral Every 4 Hours as needed for pain not to exceed 3000 mg/ day from ALL Sources as needed celecoxib (CeleBREX 200 mg oral capsule) 1 Capsule(s) Oral Two Times A Day as needed for Pain (Mild 1-3) this evening DULoxetine (Cymbalta 60 mg oral delayed release capsule) 1 Capsule(s) Oral Two Times A Day (do not crush or chew) this evening ethambutol (ethambutol 400 mg oral tablet) 3 Tablet(s) Oral Every Day tomorrow gabapentin (gabapentin 800 mg oral tablet) 1 Tablet(s) Oral Three Times A Day at 3:00pm and this evening rifaMPIN (rifAMPin 300 mg oral capsule) 1 Capsule(s) Oral Two Times A Day this evening Take your medications faithfully. Do NOT skip medication. Do NOT stop taking medications without the direction of a physician. Carry a list of your medications with you at all times, and take this medication list with you to your first follow up visit. Report any side effects. Avoid herbal remedies unless discussed with your physician. As part of your treatment plan, your physician may have prescribed a limited course of a controlled substance. This medication may be given to help people with moderate or severe pain or for other medical conditions, but there are risks involved with treatment. Common side effects may include nausea, constipation, drowsiness, sweating, itching, dry mouth, and rash. More serious side effects may include cognitive and motor impairment, like problems with thinking, concentrating, alertness, and movement (e.g. slowed reflexes), and driving and operating heavy machinery can be dangerous. It is important for you to talk to your physician if you have these side effects or questions. These controlled substances can produce physical dependence and be habit-forming if taken for an extended period of time, which means that the body has gotten used to them and may experience withdrawal symptoms if they are abruptly stopped. Withdrawal symptoms can include runny nose, sweating, goose bumps, diarrhea, abdominal cramping, rapid heartbeat, difficulty sleeping, and nervousness. Please dispose of unused and medications per your retail pharmacy guidance. Allergies No Known Allergies Immunizations This Visit No Immunizations Found Education Materials Mycobacterium Avium Complex Mycobacterium avium complex (MAC) [...] these instructions at home: Medicines ??? Take schq-fxv-vfxrcdr and prescription medicines only as told by your health care provider. ??? Take your antibiotic medicine as told by your health care provider. Do not stop taking the antibiotic even if you start to feel better. Eating and drinking ??? Eat a healthy, well-balanced diet. Talk with your health care provider or a diet and software testing specialist (dietitian) about what food choices are [...] and water are not available, use hand text transcriber. ??? Practice safe food preparation, especially if [...] ??? Have a fever for more than 2???3 days. ??? Cough up blood. ??? Have [...] provider. Document Revised: 04/27/2019 Document Reviewed: 11/28/2018 [employer] Patient Education ?? 2020 [employer] Video-Assisted Thoracic Surgery, Care After This sheet [...] cuts from surgery (incisions). Medicines ??? Take bihu-niu-fquceyt or prescription medicines only as told by [...] keep your pee pale yellow. ? Take uzom-ogd-kcjtshd or prescription medicines. ? Eat foods that [...] cannot use soap and water, use hand text transcriber. ? Change your bandage as told by your doctor. ? Leave stitches (sutures), skin glue, alyse, or skin tape (adhesive) strips in place. [...] use your chest muscles for at least 3???4 weeks. ??? Do not lift anything that [...] provider. Document Revised: 10/21/2020 Document Reviewed: 10/21/2020 [employer] Patient Education ?? 2020 [employer] acetaminophen and oxycodone (a SEET a MIN oh fen and OX i KOE done) Endocet 10/325, Endocet 2.5/325, Endocet 5/325, Endocet 7.5/325, Nalocet, Percocet, Primlev What is the most important information I should know about acetaminophen and oxycodone? MISUSE OF OPIOID MEDICINE CAN CAUSE ADDICTION, OVERDOSE, OR . Keep the medication in a place where others cannot get to it. Taking opioid medicine during may cause life-threatening withdrawal symptoms in the . Fatal side effects can occur if you use opioid medicine with alcohol, or with other drugs that cause drowsiness or slow your breathing. Stop taking this medicine and call your doctor right away if you have skin redness or a rash that spreads and causes blistering and peeling. What is acetaminophen and oxycodone? Acetaminophen and oxycodone is a combination medicine used to relieve moderate to severe pain. Acetaminophen and oxycodone contains an opioide medicine and may be habit-forming. Acetaminophen and oxycodone may also be used for purposes not listed in this medication guide. What should I discuss with my healthcare provider before taking acetaminophen and oxycodone? You should not use this medicine if you are allergic to acetaminophen or oxycodone, or if you have: ?? severe asthma or breathing problems; or ?? a blockage in your stomach or intestines. Tell your doctor if you have ever had: ?? breathing problems, sleep apnea; ?? liver disease; ?? a drug or alcohol addiction; ?? kidney disease; ?? a head injury or seizures; ?? urination problems; or ?? problems with your thyroid, pancreas, or gallbladder. If you use opioid medicine while you are , your baby could become dependent on the drug. This can cause life-threatening withdrawal symptoms in the baby after it is born. Babies born dependent on opioids may need medical treatment for several weeks. Ask a doctor before using opioid medicine if you are . Tell your doctor if you notice severe drowsiness or slow breathing in the nursing baby. How should I take acetaminophen and oxycodone? Follow all directions on your prescription label. Never take this medicine in larger amounts, or for longer than prescribed. An overdose can damage your liver or cause . Tell your doctor if you feel an increased urge to use more of this medicine. Never share opioid medicine with another person, especially someone with a history of drug abuse or addiction. MISUSE CAN CAUSE ADDICTION, OVERDOSE, OR . Keep the medicine in a place where others cannot get to it. Selling or giving away opioid medicine is against the law. Measure liquid medicine carefully. Use the dosing syringe provided, or use a medicine dose-measuring device (not a kitchen spoon). If you need surgery or medical tests, tell the doctor ahead of time that you are using this medicine. You should not stop using this medicine suddenly. Follow your doctor's instructions about tapering your dose. Store at room temperature away from moisture and heat. Keep track of your medicine. You should be aware if anyone is using it improperly or without a prescription. Do not keep leftover opioid medication. Just one dose can cause in someone using this medicine accidentally or improperly. Ask your pharmacist where to locate a drug take-back disposal program. If there is no take-back program, flush the unused medicine down the toilet. What happens if I miss a dose? Since this medicine is used for pain, you are not likely to miss a dose. Skip any missed dose if it is almost time for your next dose. Do not use two doses at one time. What happens if I overdose? Seek emergency medical attention or call the Poison Help line at . An overdose of this medicine can be fatal, especially in a child or other person using the medicine without a prescription. Overdose symptoms may include nausea, vomiting, sweating, severe drowsiness, pinpoint pupils, slow breathing, or no breathing. Your doctor may recommend you get naloxone (a medicine to reverse an opioid overdose) and keep it with you at all times. A person caring for you can give the naloxone if you stop breathing or don't wake up. Your caregiver must still get emergency medical help and may need to perform CPR (cardiopulmonary resuscitation) on you while waiting for help to arrive. Anyone can buy naloxone from a pharmacy or local health department. Make sure any person caring for you knows where you keep naloxone and how to use it. What should I avoid while taking acetaminophen and oxycodone? Avoid driving or operating machinery until you know how this medicine will affect you. Dizziness or drowsiness can cause falls, accidents, or severe injuries. Do not drink alcohol. Dangerous side effects or could occur. Ask a doctor or pharmacist before using any other medicine that may contain acetaminophen (sometimes abbreviated as APAP). Taking certain medications together can lead to a fatal overdose. What are the possible side effects of acetaminophen and oxycodone? Get emergency medical help if you have signs of an allergic reaction: hives; difficulty breathing; swelling of your face, lips, tongue, or throat. Opioid medicine can slow or stop your breathing, and may occur. A person caring for you should give naloxone and/or seek emergency medical attention if you have slow breathing with long pauses, blue colored lips, or if you are hard to wake up. In rare cases, acetaminophen may cause a severe skin reaction that can be fatal. This could occur even if you have taken acetaminophen in the past and had no reaction. Stop taking this medicine and call your doctor right away if you have skin redness or a rash that spreads and causes blistering and peeling. Call your doctor at once if you have: ?? noisy breathing, sighing, shallow breathing, breathing that stops; ?? a light-headed feeling, like you might pass out; ?? weakness, tiredness, fever, unusual bruising or bleeding; ?? confusion, unusual thoughts or behavior; ?? problems with urination; ?? liver problems--nausea, upper stomach pain, tiredness, loss of appetite, dark urine, roberto-colored stools, jaundice (yellowing of the skin or eyes); ?? low cortisol levels-- nausea, vomiting, loss of appetite, dizziness, worsening tiredness or weakness; or ?? high levels of serotonin in the body--agitation, hallucinations, fever, sweating, shivering, fast heart rate, muscle stiffness, twitching, loss of coordination, nausea, vomiting, diarrhea. Serious breathing problems may be more likely in older adults and in those who are debilitated or have wasting syndrome or chronic breathing disorders. Common side effects include: ?? dizziness, drowsiness, feeling tired; ?? feelings of extreme happiness or sadness; ?? nausea, vomiting, stomach pain; ?? constipation; or ?? headache. This is not a complete list of side effects and others may occur. Call your doctor for medical advice about side effects. You may report side effects to FDA at 5-380-SEC-2194. What other drugs will affect acetaminophen and oxycodone? You may have breathing problems or withdrawal symptoms if you start or stop taking certain other medicines. Tell your doctor if you also use an antibiotic, antifungal medication, heart or blood pressure medication, seizure medication, or medicine to treat HIV or hepatitis C. Opioid medication can interact with many other drugs and cause dangerous side effects or . Be sure your doctor knows if you also use: ?? cold or allergy medicines, bronchodilator asthma/COPD medication, or a diuretic ('water pill'); ?? medicines for motion sickness, irritable bowel syndrome, or overactive bladder; ?? other opioids--opioid pain medicine or prescription cough medicine; ?? a sedative like Valium--diazepam, alprazolam, lorazepam, Xanax, Klonopin, Versed, and others; ?? drugs that make you sleepy or slow your breathing--a sleeping pill, muscle relaxer, medicine to treat mood disorders or mental illness; ?? drugs that affect serotonin levels in your body--a stimulant, or medicine for depression, Parkinson's disease, migraine headaches, serious infections, or nausea and vomiting. This list is not complete. Other drugs may affect acetaminophen and oxycodone, including prescription and vtri-qkx-uxfyjmo medicines, vitamins, and herbal products. Not all possible interactions are listed here. Where can I get more information? Your doctor or pharmacist can provide more information about acetaminophen and oxycodone. Remember, keep this and all other medicines out of the reach of children, never share your medicines with others, and use this medication only for the indication prescribed. Every effort has been made to ensure that the information provided by [employer]') is accurate, up-to-date, and complete, but no guarantee is made to that effect. Drug information contained herein may be time sensitive. [employer] information has been compiled for use by healthcare practitioners and consumers in the [place] and therefore [employer] does not warrant that uses outside of the [place] are appropriate, unless specifically indicated otherwise. [employer] drug information does not endorse drugs, diagnose patients or recommend therapy. [employer] drug information is an informational resource designed to assist licensed healthcare practitioners in caring for their patients and/or to serve consumers viewing this service as a supplement to, and not a substitute for, the expertise, skill, knowledge and judgment of healthcare practitioners. The absence of a warning for a given drug or drug combination in no way should be construed to indicate that the drug or drug combination is safe, effective or appropriate for any given patient. [employer] does not assume any responsibility for any aspect of healthcare administered with the aid of information [employer] provides. The information contained herein is not intended to cover all possible uses, directions, precautions, warnings, drug interactions, allergic reactions, or adverse effects. If you have questions about the drugs you are taking, check with your doctor, nurse or pharmacist. Copyright 6890-1437 [employer]. Version: 20.03. Revision Date: 12/09/2020. Emergency Awareness and Preventative Care STROKE is an EMERGENCY Every Minute Counts Act FAST and Check for these signs: FACE Does the face look uneven? ARM Does one arm drift down? SPEECH Does their speech sound strange? TIME Call at any sign of stroke Stroke Risk Factors Atrial Fibrillation (irregular heartbeat) Diabetes Family history of stroke Heart Disease Heavy alcohol use High Blood Pressure High Cholesterol Physical inactivity and obesity Smoking Cigarette Smoking The facts are clear, cigarette smoking will shorten your life. Smoking can cause many illnesses along the way. As a healthcare provider, we recommend that you stop smoking. Assistance with quitting is available by contacting 4-029-ZYZF-NOW. This is a free resource providing counseling, support, and referral. Or you may contact your personal physician. National Suicide Prevention Lifeline: The National Suicide Prevention Lifeline is a national network of local crisis centers that provides free and confidential emotional support to people in suicidal crisis or emotional distress 24 hours a day, 7 days a week. Don't Wait! Stop a Heart Attack Before it Starts What is a heart attack? A heart attack is damage or to a part of the heart from severely decreased or lack of blood flow to the heart. Over time, arteries can become narrow from the buildup of fat and cholesterol, which is called plaque. The plaque can rupture causing a blood clot to form. When the blood clot forms, the artery can become severely narrowed or completely blocked, causing a heart attack. Heart attack is the leading cause of in the [place]. 85% of muscle damage occurs within the first 2 hours. Delay in the recognition of heart attack symptoms increases the chances of . Know the early symptoms of a heart attack: Nausea Feeling of fullness in chest Jaw Pain Pain that travels down one or both arms Fatigue/being tired Anxiety Back Pain Chest pressure, squeezing, or discomfort Shortness of breath Sweating, or a cold sweat Feeling of impending doom There are unusual signs of a heart attack, too! Women, the elderly, and diabetics may present with atypical symptoms: Fainting/dizziness Weakness Confusion Risk Factors for a Heart Attack Some heart disease risk factors, such as age and family history, cannot be changed. Others, like smoking and lack of exercise, can be changed. Smoking High Cholesterol High Blood Pressure Family History Obesity Age Gender (Males are at higher risk) Lack of Exercise Diabetes Diet Stress Excessive Alcohol Intake If you or someone you know is experiencing the signs and symptoms of a heart attack, DON???T DELAY. Call immediately and seek help. If someone collapses, perform CPR! Do not attempt to drive if you are having symptoms of heart attack. Hands-Only CPR Why Hands-Only CPR? Hands-Only CPR has been shown to be as effective as conventional CPR for cardiac arrests that occur outside of a hospital. Survival depends on immediately receiving CPR from someone nearby. How do you perform Hands-Only CPR? There are two easy steps: Call if you see a teen or adult collapse Push hard and fast in the center of the chest at a beat of 100 beats per minute. Save a life! 4 WAYS TO GET AHEAD OF SEPSIS SEPSIS is a MEDICAL EMERGENCY. Time matters! Infections put you and your family at risk for a life-threatening condition called sepsis. Sepsis is the body's extreme response to an infection. It is life-threatening, and without timely treatment, sepsis can rapidly lead to tissue damage, organ failure, and . Sepsis happens when an infection you already have-in your skin, lungs, urinary tract or somewhere else-triggers a chain reaction throughout your body. 1 PREVENT INFECTIONS Take good care of chronic conditions. Talk to your doctor about getting the recommended vaccines. 2 PRACTICE GOOD HYGIENE Wash your hands frequently. Keep cuts or open sores clean and covered until they are healed. 3 KNOW THE SYMPTOMS Confusion or disorientation Shortness of breath High heart rate Fever, shivering, or feeling very cold Extreme pain or discomfort Clammy or sweaty skin 4 ACT FAST Get medical care IMMEDIATELY if you suspect sepsis or if you have an infection that is not getting better or is getting worse. To learn more about sepsis and how to prevent infections, visit www.cdc.gov/sepsis. Test Results Laboratory or Other Results This Visit (last charted value for your 09/25/2021 visit) Hematology 09/28/2021 5:13 AM WBC: 8.7 K/uL -- Normal range between ( 4.5 and 10.5 ) RBC: 4.42 Million/uL -- Normal range between ( 3.93 and 5.22 ) Hct: 40.5 % -- Normal range between ( 34.1 and 44.9 ) Hgb: 12.3 g/dL -- Normal range between ( 11.2 and 15.7 ) Platelet Count: 340 K/uL -- Normal range between ( 163 and 369 ) MCH: 27.8 pg -- Normal range between ( 25.6 and 32.2 ) MCHC: 30.4 Gram/dL -- Normal range between ( 31.5 and 35.7 ) MCV: 91.6 fL -- Normal range between ( 79.0 and 94.8 ) Slide Review: No Eos %: 3.3 % -- Normal range between ( 0.0 and 7.0 ) Hood #: 0.50 K/uL -- Normal range between ( 0.16 and 1.00 ) Eos #: 0.29 -- Normal range between ( 0.00 and 5.00 ) Hood %: 5.8 % -- Normal range between ( 3.5 and 11.1 ) Baso %: 0.5 % -- Normal range between ( 0.0 and 2.0 ) Baso #: 0.04 -- Normal range between ( 0.00 and 2.00 ) RDW: 15.3 % -- Normal range between ( 11.7 and 14.9 ) Neut %: 65.9 % -- Normal range between ( 34.0 and 71.0 ) Neut #: 5.73 K/uL -- Normal range between ( 1.60 and 7.00 ) Lymph %: 24.5 % -- Normal range between ( 19.3 and 53.1 ) Lymph #: 2.13 K/uL -- Normal range between ( 1.00 and 3.50 ) MPV: 11.1 fL -- Normal range between ( 9.4 and 12.4 ) 09/27/2021 4:23 AM IG#: 0.07 x10(3)/uL -- Normal range between ( 0.00 and 0.05 ) IG%: 0.70 % -- Normal range between ( 0.00 and 0.60 ) Microbiology 09/25/2021 9:00 AM Tissue Culture: See Result 09/22/2021 10:10 AM SARS-CoV-2 (COVID19 PCR): Negative 09/18/2021 10:05 AM MRSA Surveillance: See Result Blood Bank 09/25/2021 6:48 AM ABO/Rh (ECHO): A POS Antibody Screen: Negative ABSC Crossmatch: Computer XM OK 09/25/2021 6:33 AM RBC Product Ready: RBC Ready # of Units:: 2 Units 09/18/2021 10:05 AM ABO/Rh Repeat: A POS General Chemistry 09/26/2021 4:27 AM Creatinine Level: 0.80 mg/dL -- Normal range between ( 0.55 and 1.02 ) Sodium Level: 138 mmol/L -- Normal range between ( 136 and 146 ) Potassium Level: 4.2 mmol/L -- Normal range between ( 3.5 and 5.1 ) Chloride Level: 106 mmol/L -- Normal range between ( 102 and 112 ) Carbon Dioxide Level: 23 mmol/L -- Normal range between ( 21 and 32 ) Anion Gap: 13 -- Normal range between ( 9 and 20 ) Bun/Creatinine: 7.5 -- Normal range between ( 8.0 and 20.0 ) Calcium Level: 9.1 mg/dL -- Normal range between ( 8.4 and 10.1 ) eGFR : >60 mL/min/1.73m2 eGFR NonAfrican: >60 mL/min/1.73m2 Glucose Level: 123 mg/dL -- Normal range between ( 74 and 106 ) Blood Urea Nitrogen: 6 mg/dL -- Normal range between ( 7 and 22 ) 09/18/2021 10:05 AM Bilirubin Total: 0.6 mg/dL -- Normal range between ( 0.2 and 1.2 ) Hgb A1C: 5.8 % A/G Ratio: 1.0 -- Normal range between ( 1.1 and 2.5 ) ALT: 21 Units/Liter -- Normal range between ( 13 and 56 ) AST: 19 Units/Liter -- Normal range between ( 5 and 37 ) Globulin: 3.6 Gram/dL -- Normal range between ( 1.5 and 4.5 ) Alk Phos: 78 Units/Liter -- Normal range between ( 27 and 136 ) eAVG Glucose: 120 mg/dL Protein Total: 7.1 Gram/dL -- Normal range between ( 6.4 and 8.2 ) Albumin Level: 3.5 Gram/dL -- Normal range between ( 3.4 and 5.0 ) Coagulation 09/18/2021 10:05 AM INR: 1.0 -- Normal range between ( 0.9 and 1.2 ) PTT: 26.3 Second(s) -- Normal range between ( 22.0 and 33.0 ) PT: 10.3 Second(s) -- Normal range between ( 9.2 and 12.0 ) Computed Tomography 09/27/2021 12:[address] Chest WO: CT Chest WO Diagnostic Radiology 09/29/2021 5:58 AM CR Chest 1 Vw Portable: CR Chest 1 Vw Portable Patient Name:ZOHRA GUTIERREZ I have received and understand this information and was given the opportunity to ask questions. Patient/Stitcher Operator Name: Patient/Stitcher Operator Signature: Relationship to Patient: Clinician/Hospital Stitcher Operator Signature: Date: Electronically signed by Saud, [facility] Conversion Medical Technicians Cerner at 02/20/2023 7:22 AM CDT documented in this encounter Plan of Treatment Not on file documented as of this encounter Visit Diagnoses Not on filedocumented in this encounter
--- OUTSIDE RECORDS SUMMARY | 2025-05-13 08:27 | XMS_ITS | Encounter Summary ---
Author Organization [employer] ([place], [place], [place], [place]) Address [address] [place] [address] Care Team Providers Care Telecom Network Manager Name Role Phone Unavailable Primary Care Provider Unavailabl e Encounter Details Date Type Department Care Team (Late st Contact Info) Description 09/29/2021 Transcribed Document [facility] [place] Family Medicine [facility] [place] [address] ProviderTammi MD [facility] [place] [address] Social History Tobacco Use Types Packs/Day Years Used Date Smoking Tobacco: Never Assessed Comments Unknown Sex and Gender Information Value Date Recorded Sex Assigned at Not on file Legal Sex Female 5:43 PM CDT Gender Identity Not on file Sexual Orientation Not on file documented as of this encounter Miscellaneous Notes * Cerner Conversion Note - Tammi ProviderMD - 09/29/2021 4:19 PM COMPLIANCE PROFESSIONAL Discharge Summary, PT Entered On: 09/29/2021 16:21 EST Performed On: 09/29/2021 16:19 EST by Patricio Rodríguez PHYSICAL SHAWN NON-EXEMPT Discharge Summary Discharge Summary Provider Notified : Physical Therapy Reason for Discharge : Discharged from hospital Discharged to, Therapy : Home, independently Discharge Equipment, PT : None Discharge Summary Comment, PT : Patient was discharged home from the hospital today. She met 0/4 of her STG's and LTG's. She was discharged with sup O2 Patricio Rodríguez PHYSICAL THERAPIST NON-EXEMPT - 09/29/2021 16:19 EST Short Term Goals Mobility/Bed Mobility STG PT Grid Goal #1 Goal #2 Activity : Supine to sit Sit to stand Assist : Independent, complete Independent, complete Date to Meet : 10/04/2021 EST 10/04/2021 EST Goal Status : Progressing, continue Progressing, continue Patricio Rodríguez PHYSICAL THERAPIST NON-EXEMPT - 09/29/2021 16:19 EST Patricio Rodríguez PHYSICAL THERAPIST NON-EXEMPT - 09/29/2021 16:19 EST Ambulation STG Grid Goal #1 Device : None Distance : 100' Assist : Supervision or set-up Date to Meet : 10/04/2021 EST Goal Status : Progressing, continue Comment : 02 saturation >90% Patricio Rodríguez PHYSICAL THERAPIST NON-EXEMPT - 09/29/2021 16:19 EST Half-Way Goals Ambulation LTG Grid Goal #1 Device : None Distance : 375' Assist : Independent, complete Date to Meet : 10/11/2021 EST Goal Status : Progressing, continue Comment : 02 saturation >90% Patricio Rodríguez PHYSICAL THERAPIST NON-EXEMPT - 09/29/2021 16:19 EST Electronically signed by Raheem Villavicencio Conversion Cured Meats Supervisor Cerner at 02/20/2023 7:03 AM CDT documented in this encounter Plan of Treatment Not on file documented as of this encounter Visit Diagnoses Not on filedocumented in this encounter
--- OUTSIDE RECORDS SUMMARY | 2025-05-13 08:27 | XMS_ITS | Encounter Summary ---
Author Organization [email or web address] ([place], [place], [place], [place]) Address [address] [place] [address] Care Team Providers Care Volleyball Commentator Name Role Phone Unavailable Primary Care Provider Unavailabl e Encounter Details Date Type Department Care Team (Late st Contact Info) Description 09/27/2021 Transcribed Document [facility] [place] Family Medicine Formerly [facility] [place] [address] ProviderTammi MD [address] [place] [address] Social History Tobacco Use Types Packs/Day Years Used Date Smoking Tobacco: Never Assessed Comments Unknown Sex and Gender Information Value Date Recorded Sex Assigned at Not on file Legal Sex Female 5:43 PM CDT Gender Identity Not on file Sexual Orientation Not on file documented as of this encounter Miscellaneous Notes * Cerner Conversion Note - Tammi ProviderMD - 09/27/2021 3:23 PM PROFESSIONAL ENGINEER Pain Assessment Entered On: 09/28/2021 7:22 EST Performed On: 09/28/2021 5:47 EST by Sirisha Roland RN Intervention Information: acetaminophen-oxyCODONE Performed by Sirisha Roland RN on 09/28/2021 04:47:00 EST acetaminophen-oxyCODONE,2Tab Oral,Pain (Moderate 4-6) Pain Assessment Pain Assessment : Follow-up assessment Pain Scale Goal : 3 Pain Scale Used : 0-10 Scale Pain Improved by Intervention : Yes Sirisha Roland RN - 09/28/2021 7:22 EST Pain Scale Intensity : 3 Sirisha Roland RN - 09/28/2021 7:22 EST Image 4 - Images currently included in the form version of this document have not been included in the text rendition version of the form. documented in this encounter Plan of Treatment Not on file documented as of this encounter Visit Diagnoses Not on filedocumented in this encounter
--- OUTSIDE RECORDS SUMMARY | 2025-05-13 08:27 | XMS_ITS | Encounter Summary ---
Author Organization [employer] ([place], [place], [place], [place]) Address [address] [place] [address] Care Team Providers Care Sales Associate Cashier Name Role Phone Unavailable Primary Care Provider Unavailabl e Encounter Details Date Type Department Care Team (Late st Contact Info) Description 09/26/2021 Transcribed Document [facility] [place] Family Medicine [facility] [place] [address] ProviderTammi MD [address] [place] [address] Social History Tobacco Use Types Packs/Day Years Used Date Smoking Tobacco: Never Assessed Comments Unknown Sex and Gender Information Value Date Recorded Sex Assigned at Not on file Legal Sex Female 5:43 PM CDT Gender Identity Not on file Sexual Orientation Not on file documented as of this encounter Miscellaneous Notes * Cerner Conversion Note - Tammi ProviderMD - 09/26/2021 9:35 AM TOOL MACHINE SETUP OPERATOR UM Authorization Entered On: 09/26/2021 9:35 EST Performed On: 09/26/2021 9:35 EST by VIJAY MASON Rn-Utilization Review Primary Insurance Authorization Authorization and Policy Numbers : Insurance 1 Health Plan: [facility] Policy Number: [id number] Authorization Number: [id number] Insurance Primary Name : Meme [id number] Authorization Status-Primary : Awaiting callback Authorization Number-Primary : [id number] Number of Days Authorized-Primary : 0 Day(s) Authorized Service Begin Date-Primary : 09/25/2021 EST Authorized Service End Date-Primary : 09/25/2021 EST Authorization Comments-Primary : Clinicals faxed via [employer] Historical Authorization Comments-Primary : Comment 1: [place] approved per [facility] note for 1 day inpt (SARITHA BARNES RN-Utilization Review 09/20/2021 13:51) Comment 2: per [facility] [place] inpt auth is PENDING (MARGARITA LUGO, Warp Scouring Vat Tender 09/19/2021 12:53) VIJAY MASON Rn-Utilization Review - 09/26/2021 9:35 EST documented in this encounter Plan of Treatment Not on file documented as of this encounter Visit Diagnoses Not on filedocumented in this encounter
--- OUTSIDE RECORDS SUMMARY | 2025-05-13 08:27 | XMS_ITS | Encounter Summary ---
Author Organization [employer] ([place], [place], [place], [place]) Address [address] [place] [address] Care Team Providers Care Acute Care Physical Therapist Name Role Phone Unavailable Primary Care Provider Unavailabl e Encounter Details Date Type Department Care Team (Late st Contact Info) Description 09/29/2021 Transcribed Document [facility] Family Medicine [facility] [place] [address] ProviderTammi MD [address] [place] [address] Social History Tobacco Use Types Packs/Day Years Used Date Smoking Tobacco: Never Assessed Comments Unknown Sex and Gender Information Value Date Recorded Sex Assigned at Not on file Legal Sex Female 5:43 PM CDT Gender Identity Not on file Sexual Orientation Not on file documented as of this encounter Miscellaneous Notes * Cerner Conversion Note - Tammi Lam MD - 09/29/2021 8:31 AM CHIEF CONTROLLER CENTER Patient: ZOHRA GUTIERREZ Age: 40 years Sex: [...] she needs her oxygen all the time 09/29/2021: POD#4 pain improved after chest tubes out, no other complaints, wants to go home Health Status Allergies: Allergies (1) Active Reaction No Known Allergies None Documented Current medications: Medications (7) Active Scheduled: (2) docusate sodium 100 mg cap 100 mg 1 Cap, Oral, BID famotidine 20 mg tab 20 mg 1 Tab, Oral, Q12H Continuous: (1) D5w/NaCl 0.45% 1,000 mL 1,000 mL, IntraVENous, 40 mL/Hr PRN: (4) acetaminophen/oxyCODONE 325/5 mg tab 2 Tab, Oral, Q4H diphenhydrAMINE 25 mg tab 25 mg 1 Tab, Oral, Q8H diphenhydrAMINE 50 mg/1 mL inj 25 mg 0.5 mL, IV Push, Q8H ondansetron 4 mg/2 mL inj 4 mg 2 mL, IV Push, Q4H Objective VS/Measurements Vital Measurements 09/29/2021 8:28 EST Systolic Blood Pressure 109 mmHg Diastolic Blood Pressure 55 mmHg LOW Heart Rate Monitored 75 bpm Oxygen Saturation 93 % LOW Oxygen Therapy Mode Nasal cannula [...] Radiology results Radiology Results (Last 48 hours) [id number] -- 09/25/2021 09:19 CT Chest WO (09/27/2021 [...] interpreted, and dictated by Tasia Chung MD CR Chest 1 Vw Portable (09/28/2021 07:33) Result: PORTABLE CHEST HISTORY: Pleural effusion.COMPARISON: September 26, 2021.FINDINGS: The cardiomediastinal silhouette is stable. There are smallbilateral pleural effusions with bibasilar atelectasis. There is anintact right apical chest tube. There is no expanding or enlargingpneumothorax. There are low lung volumes that have marginally improvedfrom prior exam.IMPRESSION: 1. Slight improved lung volumes otherwise no significant intervalchange.2. Intact right apical chest tube without enlarging right pneumothorax.3. Stable small bilateral pleural effusions with bibasilar atelectasis.Images reviewed, interpreted, and dictated by Dr. Alla Reyes.Transcribed by April Gudino PA-C.I have personally viewed, interpreted and dictated the examination. Ihdi read and agree with the above final transcribed report. CR Chest 1 Vw Portable (09/29/2021 05:58) Result: PORTABLE CHEST 09/29/2021 4:00 AM HISTORY: Pleural effusion.COMPARISON: 1 day prior.FINDINGS: A right-sided chest tube has been removed. The heart is propersize. The mediastinum is unremarkable. There are persistent bibasilarpulmonary opacities favoring atelectasis over pneumonia. There is asmall amount of right chest wall air. There is no definite pneumothorax.The osseous structures are unremarkable.IMPRESSION: Persistent bibasilar pulmonary opacities favoringatelectasis over pneumonia.No definite pneumothorax.Images reviewed, interpreted, and dictated by Dr. Ariel Wyatt.Transcribed by Maliha Sherman.I have personally viewed, interpreted and dictated the examination. Sharmin read and agree with the above final transcribed report. Impression and Plan 09/26/21 POD # 1 [...] needed Appointment in two weeks Path pending documented in this encounter Plan of Treatment Not on file documented as of this encounter Visit Diagnoses Not on filedocumented in this encounter
--- OUTSIDE RECORDS SUMMARY | 2025-05-13 08:27 | XMS_ITS | Encounter Summary ---
Author Organization [employer] ([place], [place], [place], [place]) Address [address] [place] [address] Care Team Providers Care Chairlift Operator Name Role Phone Unavailable Primary Care Provider Unavailabl e Encounter Details Date Type Department Care Team (Late st Contact Info) Description 09/27/2021 Transcribed Document [facility] [place] [facility] [place] [facility] [place] [address] ProviderTammi MD [address] [place] [address] Social History Tobacco Use Types Packs/Day Years Used Date Smoking Tobacco: Never Assessed Comments Unknown Sex and Gender Information Value Date Recorded Sex Assigned at Not on file Legal Sex Female 5:43 PM CDT Gender Identity Not on file Sexual Orientation Not on file documented as of this encounter Miscellaneous Notes * Cerner Conversion Note - Tammi ProviderMD - 09/27/2021 12:03 PM TABLE COVER FOLDER UM Authorization Entered On: 09/27/2021 12:03 EST Performed On: 09/27/2021 12:03 EST by VIJAY MASON Rn-Utilization Review Primary Insurance Authorization Authorization and Policy Numbers : Insurance 1 Health Plan: [facility] Policy Number: [id number] Authorization Number: [id number] Insurance Primary Name : [facility] Policy Number: [id number] Authorization Status-Primary : Awaiting callback Authorization Number-Primary : [id number] Number of Days Authorized-Primary : 2 Day(s) Authorized Service Begin Date-Primary : 09/25/2021 EST Authorized Service End Date-Primary : 09/27/2021 EST Authorization Comments-Primary : Clinicals faxed via [employer] for 09/26-09/27. Historical Authorization Comments-Primary : Comment 1: Continued stay authorized per fax 09/27/21 @ 0112. Total days approved x3. (Mary Mae, Webf[employer] Developer 09/27/2021 07:23) Comment 2: Clinicals faxed via [employer] (VIJAY MASON, Rn-Utilization Review 09/26/2021 09:35) Comment 3: [place] approved per [facility] note for 1 day inpt (SARITHA BARNES, ZULAY-Utilization Review 09/20/2021 13:51) Comment 4: per [facility] [place] inpt auth is PENDING (MARGARITA LUGO, It Communications Specialist 09/19/2021 12:53) VIJAY MASON, Rn-Utilization Review - 09/27/2021 12:03 EST Electronically signed by Saud, [facility] Conversion Kitchen Food Server Cerner at 02/20/2023 7:08 AM CDT documented in this encounter Plan of Treatment Not on file documented as of this encounter Visit Diagnoses Not on filedocumented in this encounter
--- OUTSIDE RECORDS SUMMARY | 2025-05-13 08:27 | XMS_ITS | Encounter Summary ---
Author Organization Healthcare Address [address] [place] [address] Care Team Providers Care Pattern Technician Name Role Phone Brandon Gautam MD Unavailable [phone] Angel Pond MD Primary Care Provider [phone] Encounter Details Date Type Department Care Team (Latest Contact Info) Description 04/05/2025 Travel Social History Tobacco Use Types Packs/Day [...] Description 06/30/2025 2:00 PM EDT Office Visit [facility] [address] [place] [address] Brittany Oakes APRN [address] [place] [address] 07/07/2025 9:00 AM EDT Consult Medical Office Building Urology [address], [address] [place] [address] Leonela Patterson, HR BUSINESS PARTNER, DNP [address] [facility] [address] [place] [address] documented as of this encounter [...] documented as of this encounter Care Teams Pattern Technician Relationship Specialty Start Date End Date Angel Pond MD [address] [facility] [address] [place], [place] [id number] PCP - General 09/11/22 Brandon Gautam MD [address] [address] Referring Physician 01/04/22 documented as of this encounter
--- OUTSIDE RECORDS SUMMARY | 2025-05-13 08:27 | XMS_ITS | Encounter Summary ---
Author Organization [employer] ([place], [place], [place], [place]) Address [address] [place] [address] Care Team Providers Care Safety Attendant Name Role Phone Unavailable Primary Care Provider Unavailabl e Encounter Details Date Type Department Care Team (Late st Contact Info) Description 09/28/2021 Transcribed Document [facility] [place] Family Medicine [facility] [place] [address] ProviderTammi MD [address] [place] [address] Social History Tobacco Use Types Packs/Day Years Used Date Smoking Tobacco: Never Assessed Comments Unknown Sex and Gender Information Value Date Recorded Sex Assigned at Not on file Legal Sex Female 5:43 PM CDT Gender Identity Not on file Sexual Orientation Not on file documented as of this encounter Miscellaneous Notes * [employer]ner Conversion Note - Tammi ProviderMD - 09/28/2021 5:00 PM BEATER LEAD Chart Check - Review Order Profile Entered On: 09/28/2021 18:12 EST Performed On: 09/28/2021 17:00 EST by JEREMY SALES RN Chart Check All Active Orders Reviewed : Yes JEREMY SALES RN - 09/28/2021 18:12 EST Electronically signed by Raheem Villavicencio Conversion Sour Bleaching Pleater Cerner at 02/20/2023 7:05 AM CDT documented in this encounter Plan of Treatment Not on file documented as of this encounter Visit Diagnoses Not on filedocumented in this encounter
--- OUTSIDE RECORDS SUMMARY | 2025-05-13 08:27 | XMS_ITS | Encounter Summary ---
Author Organization [employer] ([place], [place], [place], [place]) Address [address] [place] [address] Care Team Providers Care Sorting Machine Operator Name Role Phone Unavailable Primary Care Provider Unavailabl e Encounter Details Date Type Department Care Team (Late st Contact Info) Description 09/26/2021 Transcribed Document [facility] [place] Family Medicine [address] [place] [address] ProviderTammi MD [address] [place] [address] Social History Tobacco Use Types Packs/Day Years Used Date Smoking Tobacco: Never Assessed Comments Unknown Sex and Gender Information Value Date Recorded Sex Assigned at Not on file Legal Sex Female 5:43 PM CDT Gender Identity Not on file Sexual Orientation Not on file documented as of this encounter Miscellaneous Notes * [employer]ner Conversion Note - Tammi ProviderMD - 09/26/2021 5:00 AM MACHINE BOSS Chart Check - Review Order Profile Entered On: 09/26/2021 4:10 EST Performed On: 09/26/2021 5:00 EST by Sirisha Roland RN Chart Check Powerplans Initiated/Discontinued as Appropriate : Yes All Active Orders Reviewed : Yes Sirisha Roland RN - 09/26/2021 4:10 EST Electronically signed by Saud elizabeth Conversion Search Engine Optimization Manager Cerner at 02/20/2023 7:16 AM CDT documented in this encounter Plan of Treatment Not on file documented as of this encounter Visit Diagnoses Not on filedocumented in this encounter
--- OUTSIDE RECORDS SUMMARY | 2025-05-13 08:28 | XMS_ITS | Encounter Summary ---
Author Organization [employer] ([place], [place], [place], [place]) Address [address] [place] [address] Care Team Providers Care Demo Coordinator Name Role Phone Unavailable Primary Care Provider Unavailabl e Encounter Details Date Type Department Care Team (Late st Contact Info) Description 09/27/2021 Transcribed Document [facility] [place] [facility] [place] [address] ProviderTammi MD [address] [place] [address] Social History Tobacco Use Types Packs/Day Years Used Date Smoking Tobacco: Never Assessed Comments Unknown Sex and Gender Information Value Date Recorded Sex Assigned at Not on file Legal Sex Female 5:43 PM CDT Gender Identity Not on file Sexual Orientation Not on file documented as of this encounter Miscellaneous Notes * [employer]ner Conversion Note - Tammi ProviderMD - 09/27/2021 5:05 PM VENUE MANAGER On Going Discharge Planning Entered On: 09/27/2021 17:11 EST Performed On: 09/27/2021 17:05 EST by ROBERTO JEFFRIES Social Worker Care [...] the Patient Meeting Medical Necessity : Yes Did you Attend Multidisciplinary Rounds? : Yes ROBERTO JEFFRIES Social Worker - 09/27/2021 17:05 EST Narrative Progress Note Narrative Progress Note : HD 2/ELOS 4/POD 2/ [...] CM will continue to follow. ROBERTO JEFFRIES, Soap Worker - 09/27/2021 17:05 EST Electronically signed by Saud [place] Conversion Thoroughbred Horse Farm Manager Cerner at 02/20/2023 7:25 AM CDT documented in this encounter Plan of Treatment Not on file documented as of this encounter Visit Diagnoses Not on filedocumented in this encounter
--- OUTSIDE RECORDS SUMMARY | 2025-05-13 08:28 | XMS_ITS | Encounter Summary ---
Author Organization [employer] ([place], [place], [place], [place]) Address [address] [place] [address] Care Team Providers Care Employment Legal Assistant Name Role Phone Unavailable Primary Care Provider Unavailabl e Encounter Details Date Type Department Care Team (Late st Contact Info) Description 09/25/2021 Transcribed Document [facility] [place] [facility] [place] [address] ProviderTammi MD [address] [place] [address] Social History Tobacco Use Types Packs/Day Years Used Date Smoking Tobacco: Never Assessed Comments Unknown Sex and Gender Information Value Date Recorded Sex Assigned at Not on file Legal Sex Female 5:43 PM CDT Gender Identity Not on file Sexual Orientation Not on file documented as of this encounter Miscellaneous Notes * [employer] Conversion Note - Tammi ProviderMD - 09/25/2021 7:30 AM ABORIGINAL EDUCATION WORKER COORDINATOR [facility] Main OR Preop Summary Primary Physician: KEITH WADDELL MD-CAT Finalized Date/Time: 09/25/21 07:58:16 Pt. Name: ZOHRA CHANDLERO.B./Sex: 1980 Female Med Rec #: [id number] Physician: KEITH WADDELL MD-CAT Financial #: [id number] Pt. Type: P Room/Bed: / Admit/Disch: 09/12/21 10:13:00 - Institution: [facility] PreOp Case Times Entry 1 In Preop 09/25/21 06:40:00 Ready for Holding n/a Room Patient Ready for 09/25/21 07:00:00 Surgery Patient Out of Preop 09/25/21 07:23:00 Patient Out of n/a Holding Room Last Modified By: MARSHALL REYNA RN 09/25/21 07:58:11 [facility] PreOp Case Times Audit 09/25/21 07:58:11 Analytical Scientist: KOMAL Modifier: MCGRANM <+> 1 Patient Out of Preop 09/25/21 07:01:27 Analytical Scientist: KOMAL Modifier: MCGRANM <+> 1 Patient Ready for Surgery Finalized By: MARSHALL REYNA RN Document Signatures Signed By: MARSHALL REYNA RN 09/25/21 07:58 Electronically signed by Saud [facility] Conversion .Net Programmer Cerner at 02/20/2023 7:07 AM CDT documented in this encounter Plan of Treatment Not on file documented as of this encounter Visit Diagnoses Not on filedocumented in this encounter
--- OUTSIDE RECORDS SUMMARY | 2025-05-13 08:28 | XMS_ITS | Encounter Summary ---
Author Organization [employer] ([place], [place], [place], [place]) Address [address] [place] [address] Care Team Providers Care Campus Administrative Assistant Name Role Phone Unavailable Primary Care Provider Unavailabl e Encounter Details Date Type Department Care Team (Late st Contact Info) Description 09/27/2021 Transcribed Document [place] [address] ProviderTammi MD [address] [place] [address] Social History Tobacco Use Types Packs/Day Years Used Date Smoking Tobacco: Never Assessed Comments Unknown Sex and Gender Information Value Date Recorded Sex Assigned at Not on file Legal Sex Female 5:43 PM CDT Gender Identity Not on file Sexual Orientation Not on file documented as of this encounter Miscellaneous Notes * Cerner Conversion Note - Tammi ProviderMD - 09/27/2021 3:51 PM FIRMWARE MANAGER Treatment Intervention, PT Entered On: 09/28/2021 14:45 EST Performed On: 09/28/2021 10:51 EST by LULA HANNA PTA General Information, PT Visit Type, PT : Treatment Note Patient Orders : Order Date Order Ordering 09/25/2021 09:22 Consult to Physical Therapy Ordered By: KEITH WADDELL MD-CAT 09/27/2021 15:51 PT Additional Treatment Ordered By: DONALDO WHITTEN PT Active Diagnoses : No Qualifying Diagnoses Therapy Diagnosis, PT : Impaired endurance with minimal activity. Admission Date : 09/25/2021 09:19 Personal Devices : Personal Devices No Devices Recorded Assistive Devices : Assistive Devices No Devices Recorded LULA HANNA PTA - 09/28/2021 14:38 EST General Status Patient Received Status : Supine in bed Treatment Start Time : 09/28/2021 10:41 EST Patient Left Status : Sitting edge of bed, RN/PCT informed, Family/Visitors at bedside, All needs met and within reach RN/PCT Informed Comment : [place] Treatment End Time : 09/28/2021 10:51 EST Treatment Time : 10 Minute(s) LULA HANNA [facility] 09/28/2021 14:38 EST Functional Mobility Mobility Grid Supine to Sit : Supervision/set-up Sit to Stand : Supervision/set-up Stand to Sit : Supervision/set-up LULA HANNA [facility] 09/28/2021 14:38 EST Gait Training/Assessment, PT Weight Bearing Status : Full Gait Assistance Level : Supervision Walking Distance : 120' Ambulatory Devices : None, Gait belt Left Lower Gait Deviation : Nahomy, decreased, Step length, decreased Right Lower Gait Deviation : Nahomy, decreased, Step length, decreased LULA HANNA [facility] 09/28/2021 14:38 EST Cognitive Treatment, PT Orientation : Oriented x 4 LULA HANNA [facility] 09/28/2021 14:38 EST Edu Topics Physical Therapy Education Grid Bed Mobility Training : Needs further teaching Gait Training : Needs further teaching Role of Physical Therapy : Verbalizes understanding Safety : Needs further teaching Transfer Training : Needs further teaching LULA HANNA [facility] 09/28/2021 14:38 EST Indication Assesessment, PT Physical Therapy Indicated : Yes LULA HANNA [facility] 09/28/2021 14:38 EST Plan of Care, PT PT Tx Plan/Goals Established w Patient : Yes LULA HANNA [facility] 09/28/2021 14:38 EST Short Term Goals Mobility/Bed Mobility STG PT Grid Goal #1 Goal #2 Activity : Supine to sit Sit to stand Assist : Independent, complete Independent, complete Date to Meet : 10/04/2021 EST 10/04/2021 EST Goal Status : Progressing, continue Progressing, continue LULA HANNA [facility] 09/28/2021 14:38 EST LULA HANNA [facility] 09/28/2021 14:38 EST Ambulation STG Grid Goal #1 Device : None Distance : 100' Assist : Supervision or set-up Date to Meet : 10/04/2021 EST Goal Status : Progressing, continue Comment : 02 saturation >90% LULA HANNA [facility] 09/28/2021 14:38 EST Residential Goals Ambulation LTG Grid Goal #1 Device : None Distance : 375' Assist : Independent, complete Date to Meet : 10/11/2021 EST Goal Status : Progressing, continue Comment : 02 saturation >90% LULA HANNA PTA - 09/28/2021 14:38 EST Treatment Note Subjective Comment : pt agreeable to PTx, nsg cleared pt for PTx Additional Objective Information : pt O2 sat 88% on 3L O2 after ambulation Assessment : pt able to ambulate with supervision for safety, pt would benefit from continued therapy to increase endurance and decreased safety risk Plan for Treatment : continue POC LULA HANNA PTA - 09/28/2021 14:38 EST Pain Assessment Pain Score During-Intervention : 4 Location : Incisional Pain Improved by : Relaxation, Repositioning LULA HANNA PTA - 09/28/2021 14:38 EST Image 1 - Images currently included in the form version of this document have not been included in the text rendition version of the form. Anticipated Discharge Needs, OT/PT Anticipated Discharge to : Home, with family care Recommend Continued Therapy at Discharge : No LULA AHNNA PTA - 09/28/2021 14:38 EST [facility] PT Charges CHILDBIRTH EDUCATOR PT Therap. Exercise 15 min-CHILDBIRTH EDUCATOR : 1 LULA HANNA PTA - 09/28/2021 14:38 EST Electronically signed by Raheem Villavicencio Conversion Chemical Dependency Therapist Cerner at 02/20/2023 7:19 AM CDT documented in this encounter Plan of Treatment Not on file documented as of this encounter Visit Diagnoses Not on filedocumented in this encounter
--- OUTSIDE RECORDS SUMMARY | 2025-05-13 08:28 | XMS_ITS | Encounter Summary ---
Author Organization Healthcare Address [address] [place] [address] Care Team Providers Care Grounds Manager Name Role Phone Adam Ireland MD Primary Care Provider [phone] Brandon Gautam MD Unavailable [phone] Angel Pond MD Primary Care Provider [phone] Encounter Details Date Type Department Care Team ([facility] Contact Info) Description 08/15/2021 Lab Requisition [facility] Lab [address] [place] [address] AmauriLiat fuentes [address] [facility] [address] [place] [id number] Pulmonary mycobacterial infection (CMS/HCC) Social History Tobacco Use Types Packs/Day Years Used Date Smoking Tobacco: Former Alcohol Use Standard Drinks/Week Comments No 0 (1 standard drink = 0.6 oz pur e alcohol) Comments Unknown Sex and Gender Information Value Date Recorded Sex Assigned at Not on file Legal Sex Female 8:23 PM EDT Gender Identity Not on file Sexual Orientation Not on file COVID-19 Exposure Response Date Recorded In the last month, have you been in contact with someone who was confirmed or suspected to have Coronavirus / COVID-19? No / Unsure 08/01/2021 12:54 PM EDT documented as of this encounter Plan of Treatment Upcoming Encounters Date Type Department Care Team ([facility] Contact Info) Description 06/30/2025 2:00 PM EDT Office Visit [facility] Sleep Disorder Center [address] [place] [address] Brittany Oakes, TIRE MOLD ENGRAVER [address] [place] [address] 07/07/2025 9:00 AM EDT Consult Medical Office Building Urology [address], [address] [place] [address] Leonela Patterson, TIRE MOLD ENGRAVER, DNP [address] [place] [address] documented as of this encounter Procedures Procedure Name Priority Date/Time Associated Diagnosis Comments BRONCHOALVEOLAR LAVAGE CELL COUNT W/ DIFF Routine 08/15/2021 6:17 PM EDT Pulmonary mycobacterial infection (CMS/HCC) BODY FLUID, CYTOSPIN, PATHOLOGIST INTERPRETATION Routine 08/15/2021 6:17 PM EDT Pulmonary mycobacterial infection (CMS/HCC) documented in this encounter Results * Body fluid, cytospin, pathologist interpretation (08/15/2021 6:17 PM EDT) Specimen Type Bronchoalveolar Lavage 08/16/2021 12:10 PM EDT [facility] Specimen Source, Body Fluid 08/16/2021 12:10 PM EDT [facility] Clinical Diagnosis, Body Fluid Pulmonary mycobacterial infection 08/16/2021 12:10 PM EDT [facility] Interpretation , Body Fluid No evidence of malignancy Acute and chronic inflammation Moderate eosinophilia A resident was involved in the service. I attest I examined the relevant preparations for the specimens and confirmed the diagnosis or interpretation. 08/16/2021 12:10 PM EDT [facility] Pathologist Signature, Body Fluid 08/16/2021 12:10 PM EDT [facility] Comment:Reviewed by: Cassandra maloney MD LAB CP ASR DISCLAIMER Yes 08/16/2021 12:10 PM EDT [facility] Bronchoalveolar lavage fluid specimen (specimen) 08/15/2021 6:17 PM EDT 08/15/2021 6:17 PM EDT [facility] [employer] [facility] BODY FLUIDS AND STOOLS ORDER GET Final Result Performing Organization Address City/[facility]/ZIP Co de Phone Number [facility] [address] [place] [address] * Bronchoalveolar Lavage Cell Count W/ Diff (08/15/2021 6:17 PM EDT) Total Nucleated Cell Count, Body fluid 66 uL LAB HEMATOLOGY METHOD 08/15/2021 7:37 PM EDT [facility] Comment:Test performed by adelaida keith method Neutrophils %, BAL 68 % LAB HEMATOLOGY METHOD 08/15/2021 7:37 PM EDT [facility] Lymphocytes %, BAL 0 % LAB HEMATOLOGY METHOD 08/15/2021 7:37 PM EDT [facility] Monocytes/Macro phages %, BAL 12 % LAB HEMATOLOGY METHOD 08/15/2021 7:37 PM EDT [facility] Eosinophils %, BAL 20 % LAB HEMATOLOGY METHOD 08/15/2021 7:37 PM EDT [facility] Basophils %, BAL 0 % LAB HEMATOLOGY METHOD 08/15/2021 7:37 PM EDT [facility] Squamous Cells %, BAL 0 % LAB HEMATOLOGY METHOD 08/15/2021 7:37 PM EDT [facility] Bronchial Cells %, BAL 0 % LAB HEMATOLOGY METHOD 08/15/2021 7:37 PM EDT [facility] Other Cells %, BAL 0 % LAB HEMATOLOGY METHOD 08/15/2021 7:37 PM EDT [facility] Comment, BAL NONE LAB HEMATOLOGY METHOD 08/15/2021 7:37 PM EDT [facility] Comment:This is an appended report. These results have been appended to a previously preliminary verified report. Bronchoalveolar lavage fluid specimen (specimen) 08/15/2021 6:17 PM EDT 08/15/2021 6:17 PM EDT [facility] LAB BODY FLUIDS AND STOOLS ORDER GET Final Result Performing Organization Address City/[facility]/ZIP Co de Phone Number [facility] [address] [place] [address] documented in this encounter Visit Diagnoses Diagnosis Pulmonary mycobacterial infection (CMS/HCC) documented in this encounter Care Teams Grounds Manager Relationship Specialty Start Date End Date Adam Ireland MD [address] [place] [address] PCP - General 03/17/21 09/10/22 Angel Pond MD [address] [place] [address] [address] [place] [address] PCP - General 09/11/22 Brandon Gautam MD [address] [address] Referring Physician 01/04/22 documented as of this encounter
--- OUTSIDE RECORDS SUMMARY | 2025-05-13 08:28 | XMS_ITS | Encounter Summary ---
Author Organization [employer] ([place], [place], [place], [place]) Address [address] [place] [address] Care Team Providers Care Front Of House Manager Name Role Phone Unavailable Primary Care Provider Unavailabl e Encounter Details Date Type Department Care Team (Late st Contact Info) Description 09/25/2021 Transcribed Document [facility] Family [facility] [place] [address] ProviderTammi MD [address] [place] [address] Social History Tobacco Use Types Packs/Day Years Used Date Smoking Tobacco: Never Assessed Comments Unknown Sex and Gender Information Value Date Recorded Sex Assigned at Not on file Legal Sex Female 5:43 PM CDT Gender Identity Not on file Sexual Orientation Not on file documented as of this encounter Miscellaneous Notes * Cerner Conversion Note - Tammi ProviderMD - 09/25/2021 9:22 AM WELL SERVICING RIG OPERATOR Evaluation, Physical Therapy Entered On: 09/27/2021 15:50 EST Performed On: 09/27/2021 15:41 EST by DONALDO WHITTEN, PT General Information, PT Visit Type, PT : Treatment Note Patient Orders : Order Date Order Ordering 09/25/2021 09:22 Consult to Physical Therapy Ordered By: KEITH WADDELL MD-CAT Active Diagnoses : No Qualifying Diagnoses Therapy Diagnosis, PT : Impaired endurance with minimal activity. Onset of Problem, PT : 09/25/2021 EST Admission Date : 09/25/2021 09:19 Personal Devices : Personal Devices No Devices Recorded Assistive Devices : Assistive Devices No Devices Recorded General Information Comment, PT : Dx: SOA, thoracoscopy, open lung biopsy Sx: 09/25: R VATS with R middle lobe lung resection Hx: repeated infections DONALDO WHITTEN, PT - 09/27/2021 15:41 EST General Status Patient Received Status : Sitting edge of bed Treatment Start Time : 09/27/2021 14:14 EST Patient Left Status : Sitting edge of bed, All needs met and within reach Treatment End Time : 09/27/2021 14:24 EST Treatment Time : 10 Minute(s) DONALDO WHITTEN, PT - 09/27/2021 15:41 EST History and Environment Living Situation, Therapy : Home Patient Lives With : Spouse Persons Providing Information : Patient Home Equipment Therapy, PT : Crutches (Comment: does not use. [DONALDO WHITTEN, PT - 09/27/2021 15:41 EST] ) Home Setup : One story Stairs : Yes Stair Location(s) : Outside Outside Stairs, Number of Steps : 4 Railing Outside : No DONALDO WHITTEN, PT - 09/27/2021 15:41 EST Prior Level of Function PT GRID Prior LOF Ambulation, Household : Independent Prior LOF Ambulation, Community : Independent Prior LOF Bed Mobility : Independent Prior LOF Toileting : Independent Prior LOF Transfer : Independent DONALDO WHITTEN, PT - 09/27/2021 15:41 EST Upper Extremity Right UE Active ROM : WFL Left UE Active ROM : WFL Upper Extremity Comment : MMT not assessed due to patient in pain and c/o RA flare up. DONALDO WHITTEN, PT - 09/27/2021 15:41 EST Lower Extremity RLE Active ROM : WFL LLE Active ROM : WFL Lower Extremity Comment : MMT not assessed due to patient in pain and c/o RA flare up. DONALDO WHITTEN, PT - 09/27/2021 15:41 EST Functional Mobility Mobility Grid Sit to Stand : Supervision/set-up Stand to Sit : Supervision/set-up DONALDO WHITTEN PT - 09/27/2021 15:41 EST Sit to Stand Device : None Stand to Sit Device : None DONALDO WHITTEN, PT - 09/27/2021 15:41 EST Gait Training/Assessment, PT Weight Bearing Status : Full Gait Assistance Level : Supervision Walking Distance : 20' in room with CT hooked to wall suction. on RA. Ambulatory Devices : None Gait Deviations : Yes Gait Training Comment : Patient with flexed posture and stumbling gait pattern. DONALDO WHITTEN, PT - 09/27/2021 15:41 EST Cognition Assessment, PT Orientation : Oriented x 4 Attention Assessment : Present DONALDO WHITTEN, PT - 09/27/2021 15:41 EST Edu Topics Physical Therapy Education Grid Gait Training : Needs further teaching Role of Physical Therapy : Verbalizes understanding Transfer Training : Returns demonstration DONALDO WHITTEN, PT - 09/27/2021 15:41 EST Indication Assesessment, PT Physical Therapy Indicated : Yes PT Problem List : Impaired, bed mobility, Impaired, endurance tolerance, Impaired, gait, Impaired, standing balance, Impaired, strength, Impaired, transfers Potential Barriers To Therapy : Acuity of Illness, Pain Rehabilitation Potential : Good DONLADO WHITTEN, PT - 09/27/2021 15:41 EST Plan of Care, PT PT Tx Plan/Goals Established w Patient : Yes PT Frequency Rehab : Daily PT Duration Rehab : Fourteen days PT Treatments Planned : Balance training, Bed mobility training, Gait training, Therapeutic exercises, Transfer training DONALDO WHITTEN, PT - 09/27/2021 15:41 EST Short Term Goals Mobility/Bed Mobility STG PT Grid Goal #1 Goal #2 Activity : Supine to sit Sit to stand Assist : Independent, complete Independent, complete Date to Meet : 10/04/2021 EST 10/04/2021 EST Goal Status : Initial goal Initial goal DONALDO WHITTEN, PT - 09/27/2021 15:41 EST DONALDO WHITTEN, PT - 09/27/2021 15:41 EST Ambulation STG Grid Goal #1 Device : None Distance : 100' Assist : Supervision or set-up Date to Meet : 10/04/2021 EST Goal Status : Intial Goal Comment : 02 saturation >90% DONALDO WHITTEN, PT - 09/27/2021 15:41 EST Filter Assembler Goals Ambulation LTG Grid Goal #1 Device : None Distance : 375' Assist : Independent, complete Date to Meet : 10/11/2021 EST Goal Status : Intial Goal Comment : 02 saturation >90% DONALDO WHITTEN, PT - 09/27/2021 15:41 EST Treatment Note Subjective Comment : Patient agrees to PTx. Nsg. Ok'd PTx. Patient's Response to Treatment : Patient concerned about CT and not being able to breathe well. patient educated on PLB and wearing her oxygen that was on 3L on the wall, but not in her nose. She states it dries her out and she cannot wear it. Additional Objective Information : patient stood from bedside with slight unsteadiness. PT carried the CT which remained hooked to suction as patient walked to and from bathroom door. patient stood still twice during ambulation due to c/o SOA. patient then returned to bed and was c/o SOA. PT made patient put her oxygen on which was running on 3L. Patient was given extensive education about her CT, PLB, and wearing her 02. Assessment : patient presents with fair endurance to skilled PT. patient would benefit from further education and skilled PT treatment to ensure safety upon d/c. Plan for Treatment : Con't PTx. patient needs Thoracotomy HEP. DONALDO WHITTEN, PT - 09/27/2021 15:41 EST Pain Assessment Pain Scaled Used : 0-10 Pain scale Pain Score Pre-Intervention : 8 Pain Score During-Intervention : 8 Pain Score Post-Intervention. : 8 Location : Other: R breast down to R flank to R side of back. Pain Improved by : Medication, Relaxation DONALDO WHITTEN, PT - 09/27/2021 15:41 EST Image 1 - Images currently included in the form version of this document have not been included in the text rendition version of the form. Anticipated Discharge Needs, OT/PT Anticipated Discharge to : Home, with family care Recommend Continued Therapy at Discharge : No DONALDO WHITTEN, PT - 09/27/2021 15:[address] [facility] Charges PT Eval Low Complexity : 1 DONALDO WHITTEN, PT - 09/27/2021 15:41 EST Electronically signed by Saud [facility] Conversion Pugger Helper Cerner at 02/20/2023 7:12 AM CDT documented in this encounter Plan of Treatment Not on file documented as of this encounter Visit Diagnoses Not on filedocumented in this encounter
--- OUTSIDE RECORDS SUMMARY | 2025-05-13 08:28 | XMS_ITS | Encounter Summary ---
Author Organization [email or web address] ([place], [place], [place], [place]) Address [address] [place] [address] Care Team Providers Care Garde Manger Name Role Phone Unavailable Primary Care Provider Unavailabl e Encounter Details Date Type Department Care Team (Late st Contact Info) Description 09/25/2021 Transcribed Document [facility] Family Medicine [facility] [place] [address] ProviderTammi MD [address] [place] [address] Social History Tobacco Use Types Packs/Day Years Used Date Smoking Tobacco: Never Assessed Comments Unknown Sex and Gender Information Value Date Recorded Sex Assigned at Not on file Legal Sex Female 5:43 PM CDT Gender Identity Not on file Sexual Orientation Not on file documented as of this encounter Miscellaneous Notes * Cerner Conversion Note - Tammi ProviderMD - 09/25/2021 9:52 AM RESIDENTIAL LEASING AGENT Pain Assessment Entered On: 09/26/2021 0:27 EST Performed On: 09/26/2021 0:06 EST by Sirisha Roland RN Intervention Information: morphine Performed by Sirisha Roland RN on 09/25/2021 23:36:00 EST morphine,1mg IV Push,Forearm Left,Breakthrough Pain Pain Assessment Pain Assessment : Follow-up assessment Pain Scale Goal : 3 Pain Scale Used : 0-10 Scale Pain Improved by Intervention : Yes Sirisha Roland RN - 09/26/2021 0:27 EST Pain Scale Intensity : 4 Sirisha Roland RN - 09/26/2021 0:27 EST Image 4 - Images currently included in the form version of this document have not been included in the text rendition version of the form. documented in this encounter Plan of Treatment Not on file documented as of this encounter Visit Diagnoses Not on filedocumented in this encounter
--- OUTSIDE RECORDS SUMMARY | 2025-05-13 08:28 | XMS_ITS | Encounter Summary ---
Author Organization [employer] ([place], [place], [place], [place]) Address [address] [place] [address] Care Team Providers Care Clinical Research Analyst Name Role Phone Unavailable Primary Care Provider Unavailabl e Encounter Details Date Type Department Care Team (Late st Contact Info) Description 09/25/2021 Transcribed Document [facility] [place] Family Medicine [facility] [place] [address] ProviderTammi MD [address] [place] [address] Social History Tobacco Use Types Packs/Day Years Used Date Smoking Tobacco: Never Assessed Comments Unknown Sex and Gender Information Value Date Recorded Sex Assigned at Not on file Legal Sex Female 5:43 PM CDT Gender Identity Not on file Sexual Orientation Not on file documented as of this encounter Miscellaneous Notes * Cerner Conversion Note - Tammi ProviderMD - 09/25/2021 6:10 AM ACCOUNT ANALYST Patient: ZOHRA GUTIERREZ Age: 40 years Sex: Female : 1980 Associated Diagnoses: None Author: COMERVAN APRN Chief Complaint 40 yo female here with her for R thoracoscopy, open lung biopsy, possible thorocotomy with Dr. Mo. pt has had repeated lung infections for 2 years. Review of Systems Constitutional: Negative. Eye: Negative. Ear/Nose/Mouth/Throat: Negative. Respiratory: Cough, Sputum production, Wheezing. Cardiovascular: Negative. Gastrointestinal: Negative. Genitourinary: Negative. Hematology/Lymphatics: Negative. Endocrine: Negative. Immunologic: Negative. Musculoskeletal: Negative. Integumentary: Negative. Neurologic: Negative. Psychiatric: Negative. All other systems are negative Health Status Allergies: Allergic Reactions (Selected) No Known Allergies, Allergies (1) Active Reaction No Known Allergies None Documented Current medications: (Selected) Inpatient Medications Ordered Ancef: 2 Gram, 100 mL, 200 mL/Hr, IV Piggyback, PREOP HYDROmorphone: 0.25 mg, IV Push, Q10Min, PRN: Pain (Moderate 4-6) HYDROmorphone: 0.5 mg, IV Push, Q10Min, PRN: Pain (Severe 7-10) Lactated Ringers Injection intravenous solution 1,000 mL: 20 mL/Hr, IntraVENous Lactated Ringers Injection intravenous solution 1,000 mL: 30 mL/Hr, IntraVENous Nitrostat: 0.4 mg, SubLINgual, Q5Min, PRN: Pain aspirin: 81 mg, Oral, 1-Time fentaNYL: 25 mcg, IV Push, 1-Time, PRN: Pain (Severe 7-10) fentaNYL: 25 mcg, IV Push, Q10Min, PRN: Pain (Moderate 4-6) lidocaine 1% preservative-free injectable solution: 0.5 mL, IntraDermal, 1-Time midazolam: 2 mg, IV Push, Q10Min, PRN: Anxiety ondansetron: 4 mg, IV Push, 1-Time, PRN: Nausea/Vomiting oxyCODONE: 5 mg, Oral, 1-Time, PRN: Pain (Moderate 4-6) Documented Medications Documented DULoxetine: 60 mg, Oral, BID, 0 Refill(s) Tylenol: 650 mg, Oral, Q4H, PRN: as needed for pain, 0 Refill(s) azithromycin 250 mg oral tablet: 1 Tab, Oral, Daily, 2 Tab, 0 Refill(s) celecoxib: 200 mg, Oral, BID, PRN: as needed for pain, 0 Refill(s) ethambutol 400 mg oral tablet: 3 Tab, Oral, Daily, 0 Refill(s) gabapentin 800 mg oral tablet: 1 Tab, Oral, TID, 0 Refill(s) predniSONE: 5 mg, Oral, Daily, 0 Refill(s) rifAMPin 300 mg oral capsule: 1 Cap, Oral, BID, 0 Refill(s), Home Medications (8) Active azithromycin 250 mg oral tablet 250 mg = 1 Tab, Oral, Daily celecoxib 200 mg, PRN, Oral, BID DULoxetine 60 mg, Oral, BID ethambutol 400 mg oral tablet 1,200 mg = 3 Tab, Oral, Daily gabapentin 800 mg oral tablet 800 mg = 1 Tab, Oral, TID predniSONE 5 mg, Oral, Daily rifAMPin 300 mg oral capsule 300 mg = 1 Cap, Oral, BID Tylenol 650 mg, PRN, Oral, Q4H , Medications (13) Active Scheduled: (3) aspirin 81 mg chew tab 81 mg 1 Tab, Oral, 1-Time ceFAZolin 2 Gram 100 mL, IV Piggyback, PREOP lidocaine 1% *PF* inj 2 mL 0.5 mL, IntraDermal, 1-Time Continuous: (2) lactated ringers 1,000 mL 1,000 mL, IntraVENous, 30 mL/Hr lactated ringers 1,000 mL 1,000 mL, IntraVENous, 20 mL/Hr PRN: (8) fentaNYL 100 mcg/2 mL inj 25 mcg 0.5 mL, IV Push, Q10Min fentaNYL 100 mcg/2 mL inj 25 mcg 0.5 mL, IV Push, 1-Time HYDROmorphone 1 mg/1 mL inj 0.25 mg 0.25 mL, IV Push, Q10Min HYDROmorphone 1 mg/1 mL inj 0.5 mg 0.5 mL, IV Push, Q10Min midazolam 1 mg/1 mL inj 2 mL 2 mg 2 mL, IV Push, Q10Min nitroglycerin 0.4 mg tab # 25 btl 0.4 mg 1 Tab, SubLINgual, Q5Min ondansetron 4 mg/2 mL inj 4 mg 2 mL, IV Push, 1-Time oxyCODONE 5 mg tab 5 mg 1 Tab, Oral, 1-Time Problem list: All Problems Rheumatoid arthritis / SNOMED CT 321249479 / Confirmed Pneumonia / SNOMED CT 105135204 / Confirmed Lung infection (chronic) / SNOMED CT 052372816 / Confirmed states started in 2019 History of MAC infection / SNOMED CT 3746304565 / Confirmed GERD - Gastro-esophageal reflux disease / SNOMED CT 1393775672 / Confirmed Fibromyalgia / SNOMED CT 507437217 / Confirmed Shortness of breath ([facility]) / SNOMED CT 493007769 / Confirmed Depression / SNOMED CT 68968148 / Confirmed Bronchitis / SNOMED CT 53127829 / Confirmed, Active Problems (9) Bronchitis Depression Fibromyalgia GERD - Gastro-esophageal reflux disease History of MAC infection Lung infection (chronic) Pneumonia Rheumatoid arthritis Shortness of breath ([facility]) Histories Past Medical History: No active or resolved past medical history items have been selected or recorded. Family History: No family history items have been selected or recorded. Procedure history: Hysterectomy. Right Knee Surgery. Tonsillectomy. Interstim Placement. Right Ankle Surgery. bronchoscopy x 3. Social History Social & Psychosocial Habits Alcohol 07/13/2016 Alcohol Use History, Social Habits No Alcohol Use in Last Twelve Months No Substance Abuse 07/13/2016 Recreational Drug Use History No Recreational Drug Use Last 12 Months No Tobacco 09/18/2021 Smoking Status 5-9 cigarettes (between 1 Smokeless Tobacco Status Never Smokeless Tobacco Use History None Years of Tobacco Use 18 Packs/Tins Daily .5 Comment: uses vape every once in awhile - 09/18/2021 10:07 - REMEDIOS BETHEA RN . Physical Examination VS/Measurements Vital Signs/Vital Measures 09/25/2021 6:10 EST Systolic Blood Pressure 114 mmHg Diastolic Blood Pressure 51 mmHg LOW Temperature Source Temporal artery scanning Temperature Mode Fahrenheit Temperature, Fahrenheit 98 Deg F Heart Rate Monitored 74 bpm Respiratory Rate 20 Breaths/Min Oxygen Saturation 99 % Oxygen Therapy Mode Room air , Vitals Signs (last 24 hrs) Last Charted Minimum Maximum Temp 98 (SEP 25 06:10) 98 (SEP 25 06:10) 98 (SEP 25 06:10) Mon HR 74 (SEP 25 06:10) 74 (SEP 25 06:10) 74 (SEP 25 06:10) Resp Rate 20 (SEP 25 06:10) 20 (SEP 25 06:10) 20 (SEP 25 06:10) SBP 114 (SEP 25 06:10) 114 (SEP 25 06:10) 114 (SEP 25 06:10) DBP L 51 (SEP 25 06:10) L 51 (SEP 25 06:10) L 51 (SEP 25 06:10) SpO2 99 (SEP 25 06:10) 99 (SEP 25 06:10) 99 (SEP 25 06:10) General: Alert and oriented, No acute distress. Eye: Extraocular movements are intact, glasses. HENT: Normocephalic, Normal hearing. Respiratory: Respirations are non-labored, wheezing noted R upper lobe. Cardiovascular: Normal rate, Regular rhythm, No murmur, No gallop, No edema. Musculoskeletal: Normal range of motion, Normal strength, R lower back interstim noted. Integumentary: Warm, Dry, [place]. Neurologic: Alert, Oriented. Psychiatric: Cooperative, Appropriate mood & affect. Review / Management Results review: Labs (Last four charted values) WBC 7.4 (SEP 18) HB 13.4 (SEP 18) HCT 41.8 (SEP 18) Plt 326 (SEP 18) Na 140 (SEP 18) K 4.6 (SEP 18) Cl 107 (SEP 18) CO2 28 (SEP 18) BUN L 3 (SEP 18) Cr 0.70 (SEP 18) Glu R 83 (SEP 18) Ca 9.3 (SEP 18) PT 10.3 (SEP 18) INR 1.0 (SEP 18) PTT 26.3 (SEP 18) AST 19 (SEP 18) ALT 21 (SEP 18) ALK P 78 (SEP 18) T Bili 0.6 (SEP 18) PTN 7.1 (SEP 18) ALB 3.5 (SEP 18) . Impression and Plan Diagnosis 1. R lung infection 2. depression 3. fibromyalgia 4. GERD 5. RA 6. SOA. Condition: Stable. pt to proceed with surgery, plan to stay 1 night. documented in this encounter Plan of Treatment Not on file documented as of this encounter Visit Diagnoses Not on filedocumented in this encounter
--- OUTSIDE RECORDS SUMMARY | 2025-05-13 08:28 | XMS_ITS | Encounter Summary ---
Author Organization [employer] ([place], [place], [place], [place]) Address [address] [place] [address] Care Team Providers Care Video Intern Name Role Phone Unavailable Primary Care Provider Unavailabl e Encounter Details Date Type Department Care Team (Late st Contact Info) Description 09/27/2021 Transcribed Document [facility] [place] Family Medicine [facility] [place] [address] ProviderTammi MD [address] [place] [address] Social History Tobacco Use Types Packs/Day Years Used Date Smoking Tobacco: Never Assessed Comments Unknown Sex and Gender Information Value Date Recorded Sex Assigned at Not on file Legal Sex Female 5:43 PM CDT Gender Identity Not on file Sexual Orientation Not on file documented as of this encounter Miscellaneous Notes * Cerner Conversion Note - Tammi ProviderMD - 09/27/2021 5:00 PM RADIOSONDE OPERATOR Chart Check - Review Order Profile Entered On: 09/27/2021 17:21 EST Performed On: 09/27/2021 17:00 EST by NIKKI PHILLIPS RN Chart Check All Active Orders Reviewed : Yes NIKKI PHILLIPS RN - 09/27/2021 17:20 EST documented in this encounter Plan of Treatment Not on file documented as of this encounter Visit Diagnoses Not on filedocumented in this encounter
--- OUTSIDE RECORDS SUMMARY | 2025-05-13 08:28 | XMS_ITS | Encounter Summary ---
Author Organization [employer] ([place], [place], [place], [place]) Address [address] [place] [address] Care Team Providers Care Last Dipper Name Role Phone Unavailable Primary Care Provider Unavailabl e Encounter Details Date Type Department Care Team (Late st Contact Info) Description 09/28/2021 Transcribed Document [facility] [place] Family Medicine [address] [place] [address] ProviderTammi MD [address] [place] [address] Social History Tobacco Use Types Packs/Day Years Used Date Smoking Tobacco: Never Assessed Comments Unknown Sex and Gender Information Value Date Recorded Sex Assigned at Not on file Legal Sex Female 5:43 PM CDT Gender Identity Not on file Sexual Orientation Not on file documented as of this encounter Miscellaneous Notes * Cerner Conversion Note - Tammi ProviderMD - 09/28/2021 5:00 AM SACK SEWER Chart Check - Review Order Profile Entered On: 09/28/2021 4:50 EST Performed On: 09/28/2021 5:00 EST by Sirisha Roland RN Chart Check Powerplans Initiated/Discontinued as Appropriate : Yes All Active Orders Reviewed : Yes Sirisha Roland RN - 09/28/2021 4:49 EST Electronically signed by Saud [facility] Conversion Electronic Test Technician Cerner at 02/20/2023 6:59 AM CDT documented in this encounter Plan of Treatment Not on file documented as of this encounter Visit Diagnoses Not on filedocumented in this encounter
--- OUTSIDE RECORDS SUMMARY | 2025-05-13 08:28 | XMS_ITS | Encounter Summary ---
Author Organization [employer] ([place], [place], [place], [place]) Address [address] [place] [address] Care Team Providers Care Two Needle Machine Operator Name Role Phone Unavailable Primary Care Provider Unavailabl e Encounter Details Date Type Department Care Team (Late st Contact Info) Description 09/25/2021 Transcribed Document [facility] [place] Family Medicine [facility] [address] ProviderTammi MD [address] [place] [address] Social History Tobacco Use Types Packs/Day Years Used Date Smoking Tobacco: Never Assessed Comments Unknown Sex and Gender Information Value Date Recorded Sex Assigned at Not on file Legal Sex Female 5:43 PM CDT Gender Identity Not on file Sexual Orientation Not on file documented as of this encounter Miscellaneous Notes * Cerner Conversion Note - Tammi ProviderMD - 09/25/2021 4:15 PM MARKETING OPERATIONS COORDINATOR Meds to Bed Enrollment Entered On: 09/26/2021 9:21 EST Performed On: 09/25/2021 16:15 EST by Reji Landry Revenue Tax Specialist Cert Lead Meds to Bed Enrollment Patient Enrollment Decision: : Yes/enroll in meds to bed program Reji Landry Revenue Tax Specialist Cert Lead - 09/26/2021 9:20 EST documented in this encounter Plan of Treatment Not on file documented as of this encounter Visit Diagnoses Not on filedocumented in this encounter
--- OUTSIDE RECORDS SUMMARY | 2025-05-13 08:28 | XMS_ITS | Encounter Summary ---
Author Organization [employer] ([place], [place], [place], [place]) Address [address] [place] [address] Care Team Providers Care Logging Crew Foreman Name Role Phone Unavailable Primary Care Provider Unavailabl e Encounter Details Date Type Department Care Team (Late st Contact Info) Description 09/27/2021 Transcribed Document [facility] [place] [facility] [place] [address] ProviderTammi MD [address] [place] [address] Social History Tobacco Use Types Packs/Day Years Used Date Smoking Tobacco: Never Assessed Comments Unknown Sex and Gender Information Value Date Recorded Sex Assigned at Not on file Legal Sex Female 5:43 PM CDT Gender Identity Not on file Sexual Orientation Not on file documented as of this encounter Miscellaneous Notes * Cerner Conversion Note - Tammi Lam MD - 09/27/2021 9:19 AM HEEL SEAT FILLER Patient: ZOHRA GUTIERREZ Age: 40 years Sex: Female : 1980 Associated Diagnoses: None Author: IVORY TALAMANTES PA-ERICK Basic Information Zohra Gutierrez is a 40-year-old [...] for CT chest yesterday O2???3 L NSR???71 Health Status Allergies: Allergies (1) Active Reaction No Known Allergies None Documented Current medications: Medications (5) Active Scheduled: (2) docusate sodium 100 mg cap 100 mg 1 Cap, Oral, BID famotidine 20 mg tab 20 mg 1 Tab, Oral, Q12H Continuous: (1) D5w/NaCl 0.45% 1,000 mL 1,000 mL, IntraVENous, 40 mL/Hr PRN: (2) acetaminophen/oxyCODONE 325/5 mg tab 2 Tab, Oral, Q4H ondansetron 4 mg/2 mL inj 4 mg 2 mL, IV Push, Q4H Objective General: Alert and oriented, No acute distress. Respiratory: Breath sounds: Right, Diminished, Poor effort. Cardiovascular: Normal rate, 65 beats per minute, Regular rhythm. Gastrointestinal: Soft. Neurologic: Alert, Oriented, No focal deficits. Review / Management Results review: SEP 26 04:27 138 106 L 6 / H 123 4.2 23 0.80 \. Radiology results Radiology Results (Last 48 hours) [id number] -- 09/25/2021 09:19 CR Chest 1 Vw [...] pneumonia.Images personally reviewed, interpreted and dictated by HEMANT Murrieta. CR Chest 1 Vw Portable (09/26/2021 06:32) [...] subcutaneousemphysema.2. Right chest tube in place without obvious pneumothorax.Images reviewed, interpreted, and dictated by Dr. Galo Álvarez.Transcribed by April Gudino PA-C.I have personally viewed, interpreted and dictated the examination. Ihave read and agree with the above final transcribed report. Labs (Last four charted values) WBC H 10.7 (SEP 27) H 18.3 (SEP 26) 7.4 (SEP 18) HB L 10.5 (SEP 27) 11.2 (SEP 26) 13.4 (SEP 18) HCT L 33.7 (SEP 27) 34.8 (SEP 26) 41.8 (SEP 18) Plt 277 (SEP 27) 302 (SEP 26) 326 (SEP 15) Na 138 (SEP 26) 140 (SEP 18) K 4.2 (SEP 26) 4.6 (SEP 18) Cl 106 (SEP 26) 107 (SEP 18) CO2 23 (SEP 26) 28 (SEP 18) BUN L 6 (SEP 26) L 3 (SEP 15) Cr 0.80 (SEP 26) 0.70 (SEP 18) Glu R H 123 (SEP 26) 83 (SEP 18) Ca 9.1 (SEP 26) 9.3 (SEP 18) PT 10.3 (SEP 18) INR 1.0 (SEP 18) PTT 26.3 (SEP 18) AST 19 (SEP 18) ALT 21 (SEP 18) ALK P 78 (SEP 18) T Bili 0.6 (SEP 18) PTN 7.1 (SEP 18) ALB 3.5 (SEP 18) Impression and Plan 09/26/21 POD # 1 [...] will agree to it today Right CT: /, continue for drainage O2???3 L Lasix 40 mg IV, KCl 20 mEq daily documented in this encounter Plan of Treatment Not on file documented as of this encounter Visit Diagnoses Not on filedocumented in this encounter
--- OUTSIDE RECORDS SUMMARY | 2025-05-13 08:28 | XMS_ITS | Encounter Summary ---
Author Organization [employer] ([place], [place], [place], [place]) Address [address] [place] [address] Care Team Providers Care Reeler Operator Name Role Phone Unavailable Primary Care Provider Unavailabl e Encounter Details Date Type Department Care Team (Late st Contact Info) Description 09/19/2021 Transcribed Document [facility] [place] [facility] [place] [address] ProviderTammi MD [address] [place] [address] Social History Tobacco Use Types Packs/Day Years Used Date Smoking Tobacco: Never Assessed Comments Unknown Sex and Gender Information Value Date Recorded Sex Assigned at Not on file Legal Sex Female 5:43 PM CDT Gender Identity Not on file Sexual Orientation Not on file documented as of this encounter Miscellaneous Notes * Cerner Conversion Note - Tammi ProviderMD - 09/19/2021 12:53 PM WINE MAKER UM Authorization Entered On: 09/19/2021 12:54 EST Performed On: 09/19/2021 12:53 EST by MARGARITA LUGO Certified Coding Specialist Primary Insurance Authorization Authorization and Policy Numbers : Insurance 1 Health Plan: [facility] Policy Number: [id number] Authorization Number: Insurance Primary Name : Meme [id number] Authorization Number-Primary : PENDING AUTH [id number] Authorized Service Begin Date-Primary : 09/20/2021 EST Authorization Comments-Primary : per STAR Meme inpt auth is PENDING Historical Authorization Comments-Primary : No Authorization Comments Found MARGARITA LUGO, Certified Coding Specialist - 09/19/2021 12:53 EST Electronically signed by Saud [facility] Conversion Resistor Winder Cerner at 02/20/2023 7:18 AM CDT documented in this encounter Plan of Treatment Not on file documented as of this encounter Visit Diagnoses Not on filedocumented in this encounter
--- OUTSIDE RECORDS SUMMARY | 2025-05-13 08:28 | XMS_ITS | Encounter Summary ---
Author Organization [employer] ([place], [place], [place], [place]) Address [address] [place] [address] Care Team Providers Care Van Loader Name Role Phone Unavailable Primary Care Provider Unavailabl e Encounter Details Date Type Department Care Team (Late st Contact Info) Description 09/18/2021 Transcribed Document [facility] [place] [facility] [place] [address] ProviderTammi MD [address] [place] [address] Social History Tobacco Use Types Packs/Day Years Used Date Smoking Tobacco: Never Assessed Comments Unknown Sex and Gender Information Value Date Recorded Sex Assigned at Not on file Legal Sex Female 5:43 PM CDT Gender Identity Not on file Sexual Orientation Not on file documented as of this encounter Miscellaneous Notes * Cerner Conversion Note - Tammi ProviderMD - 09/18/2021 9:50 AM NAME PLATE STAMPING MACHINE OPERATOR PAT Adult Entered On: 09/18/2021 9:52 EST Performed On: 09/18/2021 9:50 EST by REMEDIOS BETHEA RN Vital Measurements Temperature Source : Temporal artery scanning Temperature Mode : Fahrenheit Temperature, Fahrenheit : 97.7 Deg F Clinical Temperature, C : 36.5 Deg C Pulse Method : Pulse Oximetry Peripheral Pulse Rate : 71 bpm Systolic Blood Pressure : 116 mmHg Diastolic Blood Pressure : 74 mmHg Oxygen Saturation : 99 % Oxygen Therapy Mode : Room air REMEDIOS BETHEA RN - 09/18/2021 10:24 EST Pain Assessment Pain Assessment : Initial assessment Pain Scale Goal : 3 REMEDIOS BETHEA RN - 09/18/2021 10:24 EST Height and Weight, Clinical Dosing Height Source : Measured Height Entry Format : Holt Height, Feet : 0 ft(Converted to: 0 cm, 0 Inch) Height, Inches : 64 Inch(Converted to: 5 ft 4 Inch, 162.56 cm) Clinical Height : 162.56 cm Weight Source : Standing scale Weight Entry Format : Holt Clinical Dosing Weight : 74.57 kg Weight, Pounds : 164 lb Weight, Ounces : 1 oz Body Surface Area (BSA) : 1.8 m2 Body Mass Index : 28.2 kg/m2 (HI) [place] Body Weight : 54 kg REMEDIOS BETHEA RN - 09/18/2021 9:50 EST Health Histories Smoking Status : 5-9 cigarettes (between 1/4 to 1/2 pack)/day in last 30 days Smokeless Tobacco Status : Never Desires Tobacco Cessation Medication : No Reason for No Tobacco Cessation Medication : Refuses FDA approved medications REMEDIOS BETHEA RN - 09/18/2021 10:05 EST Social History (As Of: 09/18/2021 10:09:24 EST) Tobacco: 5-9 cigarettes (between 1/4 to 1/2 pack)/day in last 30 days Smoking Status. Never Smokeless Tobacco Status. None Smokeless Tobacco Use History. Years of Use: 18. Packs/Tins Daily: .5. Comments: 09/18/2021 10:07 - REMEDIOS BETHEA RN: uses vape every once in awhile (Last Updated: 09/18/2021 10:07:26 EST by REMEDIOS BETHEA RN) Alcohol: Alcohol Use History No. Use in Last 12 Months: No. (Last Updated: 07/13/2016 06:27:22 EDT by Kathy Rivas RN) Substance Abuse: Drug Use Hx: No. Use in Last 12 Months: No. (Last Updated: 07/13/2016 06:27:27 EDT by Kathy Rivas RN) Infectious Disease History Does patient have symptoms of COVID-19? : No Has the Patient Been Tested for COVID-19 in the last 14 days? : Yes, Patient stated results Negative Does the Patient state known exposure to a COVID-19 positive case in the last 14 days? : No MARSHALL REYNA RN - 09/25/2021 6:25 EST Infectious Disease Risk Screening Grid Cough < 2 wks of unknown origin : NO Cough > 2 weeks : Yes Blood in Sputum : NO Fever or self-reported Fever : NO Rash of unknown origin : NO Headache : NO Stiff neck : NO Night Sweats : NO Unexplained Weight Loss : NO Diarrhea (3 episode per day) : NO CRISTOFERMAYNOR ZULAY OLIVARES - 09/25/2021 6:25 EST INF Disease Additional TB Screening : None Symptoms High Risk, Activate Isolation : Isolation not indicated INF Disease TB Screening Calc : 10 MARSHALL REYNAZULAY - 09/25/2021 6:25 EST Patient Vaccinated for COVID-19 : Fully vaccinated Physical contact outside [place] in the last 30 days : No Hospitalized in Foreign Country : No Infectious Disease History : Chicken pox/Shingles, Other: MAC INF Disease Recent Travel Calc : 0 REMEDIOS BETHEA RN - 09/18/2021 9:50 EST COVID19 PreProcedure Screening Has patient been isolated since the test : Yes Exposed to COVID19 symptoms since test? : No MARIBELL ZULAY OLIVARES - 09/25/2021 6:25 EST Is this an Emergent or Add on Procedure? : No Date PreProcedure COVID-19 test known? : Yes Date of PreProcedure COVID-19 : 09/18/2021 EST REMEDIOS BETHEA RN - 09/18/2021 9:50 EST Anesthesia/Transfusion History Family History of Anesthesia Reaction : No prior transfusion(s) Blood Transfusion Acceptable to Patient : Yes Transfusion History : Prior anesthesia without reaction Family History of Anesthesia Reaction : None Anesthesia History Comment : states had bad migraine after last bronch REMEDIOS BETHEA RN - 09/18/2021 9:50 EST Advance Directive Patient has Advance Directive *Q : No, patient refuses Advance Directive information REMEDIOS BETHEA RN - 09/18/2021 10:05 EST Spiritual/Cultural Needs Any Spiritual/Cultural Needs or Requests : No REMEDIOS BETHEA RN - 09/18/2021 10:05 EST [place] Suicide Severity Rating Scale (C-SSRS) CSSRS Past Month Wish to be : No CSSRS Past Month Suicidal Thoughts : No CSSRS Lifetime Suicide Behavior : No Suicide Severity Rating Score : 0 Suicide Severity Rating : No Additional Care Required at this time REMEDIOS BETHEA RN - 09/18/2021 10:05 EST Psychosocial History Do You Have a History of the Following? : Anxiety, Depression Currently in Unsafe Situation : No REMEDIOS BETHEA RN - 09/18/2021 10:05 EST Teaching/Learning Assessment Barriers To Learning : None evident Individuals Taught : Patient, Family member Readiness to Learn : Cooperative REMEDIOS BETHEA RN - 09/18/2021 10:24 EST Education Topics, Periop Preadmission Perioperative Education Grid Arrival Time/Place : Verbalizes understanding CHG Preoperative Bathing/Cloths : Verbalizes understanding Incentive Spirometry : Verbalizes understanding Infection Control : Verbalizes understanding NPO Status/Directions : Verbalizes understanding Preprocedure Preparations : Verbalizes understanding Preprocedure Tests/Labs : Verbalizes understanding Remove Body Piercings : Verbalizes understanding Responsible Adult : Verbalizes understanding Take/Hold Medications Pre-Procedure : Verbalizes understanding Other : Verbalizes understanding (Comment: Bactroban [REMEDIOS BETHEA RN - 09/18/2021 10:24 EST] ) General Info Support Person/Pt Rep Name : [place] Family/Rep/Phys Notified of Admit : No Emergency Contact #1 : sheldon Emergency Contact #1 Emergency Contact #1 Relationship : spouse Emergency Contact #2 : n Emergency Contact #2 Phone Number : n Emergency Contact #2 Relationship : n Information Obtained From : Patient Primary Language : Citizen Of [place] Preferred Communication Mode : Verbal Communication Barrier : None Production Mechanic Needed : No Status : Hysterectomy REMEDIOS BETHEA RN - 09/18/2021 10:05 EST John Scale John Sensory Perception : No impairment John Moisture : Occasionally moist John Activity : Walks occasionally John Mobility : No limitation John Nutrition : Excellent John Friction and Shear : No apparent problem John Score : 21 REMEDIOS BETHEA RN - 09/18/2021 10:05 EST Sleep Apnea Risk Assmt Hx of Obstructive Sleep Apnea Diagnosis : No Snore Loudly : No Tired, Fatigued, or Sleepy During Day : Yes Observed Stopping Breathing During Sleep : No Have/Are Being Treated for Hypertension : No BMI Greater Than 35 kg/m2 : No Age over 50 Years Old : No Neck Circumference Greater Than 40 cm : No Gender Male : No STOP-BANG Sleep Apnea Risk Level Score : 1 REMEDIOS BETHEA RN - 09/18/2021 10:05 EST Electronically signed by Saud [facility] Conversion Global Mobility Specialist Cerner at 02/20/2023 7:19 AM CDT documented in this encounter Plan of Treatment Not on file documented as of this encounter Visit Diagnoses Not on filedocumented in this encounter
--- OUTSIDE RECORDS SUMMARY | 2025-05-13 08:28 | XMS_ITS | Encounter Summary ---
Author Organization [employer] ([place], [place], [place], [place]) Address [address] [place] [address] Care Team Providers Care Forensic Science Technician Name Role Phone Unavailable Primary Care Provider Unavailabl e Encounter Details Date Type Department Care Team (Late st Contact Info) Description 09/25/2021 Transcribed Document [facility] [place] Medicine [facility] [place] [address] ProviderTammi MD [address] [place] [address] Social History Tobacco Use Types Packs/Day Years Used Date Smoking Tobacco: Never Assessed Comments Unknown Sex and Gender Information Value Date Recorded Sex Assigned at Not on file Legal Sex Female 5:43 PM CDT Gender Identity Not on file Sexual Orientation Not on file documented as of this encounter Miscellaneous Notes * Cerner Conversion Note - Tammi Lam MD - 09/25/2021 9:52 AM RIPENING ROOM HAND Pain Assessment Entered On: 09/26/2021 3:13 EST Performed On: 09/26/2021 3:14 EST by Sirisha Roland RN Intervention Information: acetaminophen-HYDROcodone Performed by Sirisha Roland RN on 09/26/2021 02:14:00 EST acetaminophen-HYDROcodone,1Tab Oral,Pain (Moderate 4-6) Pain Assessment Pain Assessment : Follow-up assessment Pain Scale Goal : 3 Pain Scale Used : 0-10 Scale Pain Improved by Intervention : Yes Sirisha Roland RN - 09/26/2021 3:13 EST Pain Scale Intensity : 4 Sirisha Roland RN - 09/26/2021 3:13 EST Image 4 - Images currently included in the form version of this document have not been included in the text rendition version of the form. Electronically signed by Raheem Villavicencio Conversion Die Designer Apprentice Cerner at 02/22/2023 9:24 AM CDT documented in this encounter Plan of Treatment Not on file documented as of this encounter Visit Diagnoses Not on filedocumented in this encounter
--- OUTSIDE RECORDS SUMMARY | 2025-05-13 08:28 | XMS_ITS | Encounter Summary ---
Author Organization [employer] ([place], [place], [place], [place]) Address [address] [place] [address] Care Team Providers Care Cattle Inspector Name Role Phone Unavailable Primary Care Provider Unavailabl e Encounter Details Date Type Department Care Team (Late st Contact Info) Description 09/25/2021 Transcribed Document [facility] [place] [facility] [place] [address] ProviderTammi MD [address] [place] [address] Social History Tobacco Use Types Packs/Day Years Used Date Smoking Tobacco: Never Assessed Comments Unknown Sex and Gender Information Value Date Recorded Sex Assigned at Not on file Legal Sex Female 5:43 PM CDT Gender Identity Not on file Sexual Orientation Not on file documented as of this encounter Miscellaneous Notes * Cerner Conversion Note - Tammi Lam MD - 09/25/2021 9:31 AM AERIAL ADVERTISER DATE OF PROCEDURE: 09/25/2021 SURGEON: Carmen Dawkins MD PREOPERATIVE DIAGNOSIS: Recurrent pneumonia. POSTOPERATIVE DIAGNOSIS: Recurrent pneumonia. PROCEDURE PERFORMED: Right video-assisted thoracoscopy, right middle lobe lung wedge resection. ANESTHESIA: General endotracheal anesthesia. SUPERVISOR CUSTOMER SERVICES: Terrance Mcghee, physician digital assistant. INDICATION FOR PROCEDURE: Nancy Gutierrez is a 40-year-old female with a [...] perform a lung biopsy for diagnostic purposes. DESCRIPTION OF PROCEDURE: After informed consent was obtained, the patient was brought into the operating room and was placed in supine position. General endotracheal anesthesia was initiated without any complication. A double-lumen tube was inserted and its position was confirmed using the bronchoscope. The patient was then placed in the right thoracotomy position. Entire chest was then prepped and draped in sterile fashion. Time-out was called. Patient identity and the procedure were confirmed. A 5 mm incision was made in the 8th intercostal space. A 5 mm port was then inserted. When access to the right pleural space was confirmed, the space was filled with CO2. However, on direct visualization, 3 other ports were also created. One 12 mm port in the midclavicular line as low as possible and two additional 5 mm ports were created. One in the 6th intercostal space in the posterior axillary line and one in the 7th intercostal space in the mid axillary line. Through this, a thorough evaluation of the lung was performed. There was no significant adhesions. There was some discoloration of the right middle lobe of the lung were also the infiltrates were noted on the CT scan, this was grasped using a ring forceps. The lung appeared to be somewhat frail. After grasping the right middle lobe with a ring forceps using an Endo-ROSENDO stapling device, a wedge resection of the right middle lobe was performed. The staple line was then checked and appeared to be hemostatic. Through the 12 mm port, the wedge resection was removed and was submitted for pathological evaluation as well as for culture and sensitivity. All the thoracoscope insertion sites were checked for bleeding. When we were content that through the incision in the midclavicular line, a 32-[place] straight chest tube was placed and was directed towards the apex of the chest cavity. It was then subsequently secured to the skin. All the ports were then removed. All the access sites were then closed using 2-0 Vicryl and skin was approximated in subcuticular stitches. The lung was then reinflated. The patient was transferred to the recovery in stable condition. /[id number] MD NAHOMY Silva/BOGDAN / NAHOMY / MODL /[id number] CC: MD Liat Silva MD Stephen Moses, MD documented in this encounter Plan of Treatment Not on file documented as of this encounter Visit Diagnoses Not on filedocumented in this encounter
--- OUTSIDE RECORDS SUMMARY | 2025-05-13 08:28 | XMS_ITS | Encounter Summary ---
Author Organization [employer] ([place], [place], [place], [place]) Address [address] [place] [address] Care Team Providers Care Library Consultant Name Role Phone Unavailable Primary Care Provider Unavailabl e Encounter Details Date Type Department Care Team (Late st Contact Info) Description 09/20/2021 Transcribed Document [facility] [place] Family Medicine [facility] [place] [address] ProviderTammi MD [address] [place] [address] Social History Tobacco Use Types Packs/Day Years Used Date Smoking Tobacco: Never Assessed Comments Unknown Sex and Gender Information Value Date Recorded Sex Assigned at Not on file Legal Sex Female 5:43 PM CDT Gender Identity Not on file Sexual Orientation Not on file documented as of this encounter Miscellaneous Notes * Cerner Conversion Note - Tammi ProviderMD - 09/20/2021 1:51 PM INVESTOR RELATIONS DIRECTOR UM Authorization Entered On: 09/20/2021 13:53 EST Performed On: 09/20/2021 13:51 EST by SARITHA BARNES RN-Utilization Review Primary Insurance Authorization Authorization and Policy Numbers : Insurance 1 Health Plan: [facility] Policy Number: [id number] Authorization Number: [id number] Insurance Primary Name : Meme [id number] Authorization Status-Primary : Admit approved Authorization Number-Primary : [id number] Number of Days Authorized-Primary : 0 Day(s) Authorized Service Begin Date-Primary : 09/21/2021 EST Authorized Service End Date-Primary : 09/21/2021 EST Authorization Comments-Primary : [place] approved per Star note for 1 day inpt Historical Authorization Comments-Primary : Comment 1: per STAR [place] inpt auth is PENDING (MARGARITA LUGO, Tablet Technician 09/19/2021 12:53) SARITHA BARNES RN-Utilization Review - 09/20/2021 13:51 EST documented in this encounter Plan of Treatment Not on file documented as of this encounter Visit Diagnoses Not on filedocumented in this encounter
--- OUTSIDE RECORDS SUMMARY | 2025-05-13 08:28 | XMS_ITS | Encounter Summary ---
Author Organization [employer] ([place], [place], [place], [place]) Address [address] [place] [address] Care Team Providers Care Anime Artist Name Role Phone Unavailable Primary Care Provider Unavailabl e Encounter Details Date Type Department Care Team (Late st Contact Info) Description 09/27/2021 Transcribed Document [facility] [place] [facility] [place] [address] ProviderTammi MD [address] [place] [address] Social History Tobacco Use Types Packs/Day Years Used Date Smoking Tobacco: Never Assessed Comments Unknown Sex and Gender Information Value Date Recorded Sex Assigned at Not on file Legal Sex Female 5:43 PM CDT Gender Identity Not on file Sexual Orientation Not on file documented as of this encounter Miscellaneous Notes * Cerner Conversion Note - Tammi ProviderMD - 09/27/2021 7:23 AM GLASSWARE SELECTOR UM Authorization Entered On: 09/27/2021 7:25 EST Performed On: 09/27/2021 7:23 EST by Mary Mae, Payroll Tax Analyst Primary Insurance Authorization Authorization and Policy Numbers : Insurance 1 Health Plan: [facility] Policy Number: [id number] Authorization Number: [id number] Insurance Primary Name : Meme [id number] Authorization Status-Primary : Apprv contin stay Authorization Number-Primary : [id number] Number of Days Authorized-Primary : 2 Day(s) Authorized Service Begin Date-Primary : 09/25/2021 EST Authorized Service End Date-Primary : 09/27/2021 EST Authorization Comments-Primary : Continued stay authorized per fax 09/27/21 @ 0112. Total days approved x3. Historical Authorization Comments-Primary : Comment 1: Clinicals faxed via Marian (VIJAY MASON Rn-Utilization Review 09/26/2021 09:35) Comment 2: [place] approved per Star note for 1 day inpt (SARITHA BARNES, RN-Utilization Review 09/20/2021 13:51) Comment 3: per STAR [place] inpt auth is PENDING (MARGARITA LUGO, Crab Fisherman 09/19/2021 12:53) Mary Mae, Payroll Tax Analyst - 09/27/2021 7:23 EST Electronically signed by [facility] Conversion Grain Drier Operator Cerner at 02/20/2023 7:20 AM CDT documented in this encounter Plan of Treatment Not on file documented as of this encounter Visit Diagnoses Not on filedocumented in this encounter
--- OUTSIDE RECORDS SUMMARY | 2025-05-13 08:28 | XMS_ITS | Encounter Summary ---
Author Organization [employer] ([place], [place], [place], [place]) Address [address] [place] [address] Care Team Providers Care Geothermal Operating Engineer Name Role Phone Unavailable Primary Care Provider Unavailabl e Encounter Details Date Type Department Care Team (Late st Contact Info) Description 09/27/2021 Transcribed Document [facility] [place] [facility] [place] [address] ProviderTammi MD [address] [place] [address] Social History Tobacco Use Types Packs/Day Years Used Date Smoking Tobacco: Never Assessed Comments Unknown Sex and Gender Information Value Date Recorded Sex Assigned at Not on file Legal Sex Female 5:43 PM CDT Gender Identity Not on file Sexual Orientation Not on file documented as of this encounter Miscellaneous Notes * Cerner Conversion Note - Tammi ProviderMD - 09/27/2021 2:00 AM QUICK SERVICE TECHNICIAN Potable Water Treatment Operator Details Entered On: 09/27/2021 2:53 EST Performed On: 09/27/2021 2:00 EST by Sirisha Roland RN Order [...] Crushed/Liquid : No Sirisha Roland RN - 09/27/2021 2:52 EST documented in this encounter Plan of Treatment Not on file documented as of this encounter Visit Diagnoses Not on filedocumented in this encounter
--- OUTSIDE RECORDS SUMMARY | 2025-05-13 08:28 | XMS_ITS | Encounter Summary ---
Author Organization [employer] ([place], [place], [place], [place]) Address [address] [place] [address] Care Team Providers Care Fund Raiser Name Role Phone Unavailable Primary Care Provider Unavailabl e Encounter Details Date Type Department Care Team (Late st Contact Info) Description 09/18/2021 Transcribed Document [facility] [place] Medicine [facility] [place] [address] ProviderTammi MD [address] [place] [address] Social History Tobacco Use Types Packs/Day Years Used Date Smoking Tobacco: Never Assessed Comments Unknown Sex and Gender Information Value Date Recorded Sex Assigned at Not on file Legal Sex Female 5:43 PM CDT Gender Identity Not on file Sexual Orientation Not on file documented as of this encounter Miscellaneous Notes * Cerner Conversion Note - Tammi ProviderMD - 09/18/2021 10:01 AM BIOLOGY INTERNSHIP Consult Phone Call Documentation Entered On: 09/25/2021 16:32 EST Performed On: 09/18/2021 10:01 EST by Silvano Gonzalez, [facility] Phone Call for Consults Date and Time Call Returned : 09/25/2021 16:[address] [facility] - 09/25/2021 16:32 EST Electronically signed by Raheem Villavicencio Conversion Lending Activities Supervisor Cerner at 02/20/2023 7:06 AM CDT documented in this encounter Plan of Treatment Not on file documented as of this encounter Visit Diagnoses Not on filedocumented in this encounter
--- OUTSIDE RECORDS SUMMARY | 2025-05-13 08:28 | XMS_ITS | Encounter Summary ---
Author Organization [employer] ([place], [place], [place], [place]) Address [address] [place] [address] Care Team Providers Care Second Baller Name Role Phone Unavailable Primary Care Provider Unavailabl e Encounter Details Date Type Department Care Team (Late st Contact Info) Description 09/25/2021 Transcribed Document [facility] [place] [facility] [place] [address] ProviderTammi MD [facility] [place] [place] [address] Social History Tobacco Use Types Packs/Day Years Used Date Smoking Tobacco: Never Assessed Comments Unknown Sex and Gender Information Value Date Recorded Sex Assigned at Not on file Legal Sex Female 5:43 PM CDT Gender Identity Not on file Sexual Orientation Not on file documented as of this encounter Miscellaneous Notes * Cerner Conversion Note - Tammi ProviderMD - 09/25/2021 8:44 AM MARINE CONSULTANT [facility] Main OR PACU Summary Primary Physician: KEITH WADDELL MD-CAT Finalized Date/Time: 09/25/21 16:17:06 Pt. Name: ZOHRA CHANDLER D.O.B./Sex: 1980 Female Med Rec #: [id number] Physician: KEITH WADDELL MD-CAT Financial #: [id number] Pt. Type: I Room/Bed: 306/1 Admit/Disch: 09/25/21 09:19:00 - Institution: [facility] Main OR PACU I Case Times Entry 1 In PACU I 09/25/21 09:35:00 Ready for PACU 09/25/21 10:35:00 Discharge Discharge from PACU 09/25/21 16:04:00 I Last Modified By: Kaitlyn Atkinson Rn 09/25/21 16:10:47 [facility] Main OR PACU Acuity Entry 1 Start Time 09/25/21 10:35:00 Stop Time 09/25/21 16:04:00 Acuity Level [facility] PACU Acuity I Last Modified By: Kaitlyn Atkinson Rn 09/25/21 16:17:03 Finalized By: Kaitlyn Atkinson, Rn Document Signatures Signed By: Kaitlyn Atkinson Rn 09/25/21 16:17 Electronically signed by Saud [facility] Conversion Piping Blocker Cerner at 02/20/2023 7:07 AM CDT documented in this encounter Plan of Treatment Not on file documented as of this encounter Visit Diagnoses Not on filedocumented in this encounter
--- OUTSIDE RECORDS SUMMARY | 2025-05-13 08:28 | XMS_ITS | Encounter Summary ---
Author Organization [employer] ([place], [place], [place], [place]) Address [address] [place] [address] Care Team Providers Care Printing Worker Supervisor Name Role Phone Unavailable Primary Care Provider Unavailabl e Encounter Details Date Type Department Care Team (Late st Contact Info) Description 09/25/2021 Transcribed Document [facility] [place] [facility] [place] [address] ProviderTammi MD [address] [place] [id number] Social History Tobacco Use Types Packs/Day Years Used Date Smoking Tobacco: Never Assessed Comments Unknown Sex and Gender Information Value Date Recorded Sex Assigned at Not on file Legal Sex Female 5:43 PM CDT Gender Identity Not on file Sexual Orientation Not on file documented as of this encounter Miscellaneous Notes * Cerner Conversion Note - Tammi ProviderMD - 09/25/2021 8:44 AM UTILITY SPECIALIST [facility] Main OR IntraOp Summary Primary Physician: KEITH WADDELL MD-CAT Finalized Date/Time: 09/26/21 13:16:06 Pt. Name: ZOHRA GUTIERREZ /Sex: 1980 Female Med Rec #: [id number] Physician: KEITH WADDELL MD-CAT Financial #: [id number] Pt. Type: I Room/Bed: [facility]/1 Admit/Disch: 09/25/21 09:19:00 - Institution: [facility] IntraOp Case Attendance Entry 1 Entry 2 Entry 3 Case Attendee KEITH WADDELL Grimes, Jennifer, [facility] PEPPER, PATRICK, PA MD-CAT Pref Card Builder Role Performed Surgeon/Proceduralist, Public Health Internship, First Physician certified surgical assistant First Time In 09/25/21 07:26:00 09/25/21 07:26:00 09/25/21 07:26:00 Time Out 09/25/21 09:35:00 09/25/21 09:35:00 09/25/21 09:35:00 Procedure Thoracoscopy(Right) Thoracoscopy(Right) Thoracoscopy(Right) Other Attendee Superficial Wound Closed By: Last Modified By: Yojana Swann [facility] Grimes, Jennifer, [facility] Grimes, Jennifer, [facility] Pref Card Builder Pref Card Builder Pref Card Builder 09/25/21 09:36:33 09/25/21 09:36:33 09/25/21 09:36:33 Entry 4 Entry 5 Case Attendee ZOLTAN BAGLEY ST CHALKLEY, JUDSON E, MD-ANS Role Performed Scrub, First Anesthesiologist Time In 09/25/21 07:26:00 09/25/21 07:26:00 Time Out 09/25/21 09:35:00 09/25/21 09:35:00 Procedure Thoracoscopy(Right) Thoracoscopy(Right) Other Attendee Superficial Wound Closed By: Last Modified By: Yojana Swann [facility] Grimes, Jennifer, [facility] Pref Card Builder Pref Card Builder 09/25/21 09:36:33 09/25/21 09:36:33 [facility] IntraOp Case Attendance Audit 09/25/21 09:36:33 Optical Fabricator: RICHARD Modifier: [email or web address] 1 <+> Time Out 1 <*> Procedure Thoracoscopy(Right) 2 <+> Time Out 2 <*> Procedure Thoracoscopy(Right) 3 <+> Time Out 3 <*> Procedure Thoracoscopy(Right) 4 <+> Time Out 4 <*> Procedure Thoracoscopy(Right) 5 <+> Time Out 5 <*> Procedure Thoracoscopy(Right) 09/25/21 08:08:20 Optical Fabricator: RICHARD Modifier: [email or web address] <+> 1 Procedure 2 <+> Time In 2 <*> Procedure Thoracoscopy(Right) 3 <+> Time In 3 <*> Procedure Thoracoscopy(Right) 4 <+> Time In 4 <*> Procedure Thoracoscopy(Right) 5 <+> Time In 5 <*> Procedure Thoracoscopy(Right) [facility] IntraOp Case Times Entry 1 Patient In Room Time 09/25/21 07:26:00 Out Room Time 09/25/21 09:35:00 Anesthesia Start Time 09/25/21 07:26:00 Stop Time 09/25/21 09:35:00 Surgery / Procedure Times Start Time 09/25/21 08:44:00 Stop Time 09/25/21 09:27:00 Last Modified By: Yojana Swann [facility] Pref Card Builder 09/25/21 09:35:04 [facility] IntraOp Case Times Audit 09/25/21 09:35:04 Optical Fabricator: RICHARD Modifier: [email or web address] <+> 1 Out Room Time <+> 1 Stop Time <+> 1 Stop Time 09/25/21 08:44:35 Optical Fabricator: RICHARD Modifier: [email or web address] <+> 1 Start Time [facility] IntraOp Cautery Entry 1 ESU Identification Cautery Type Monopolar ESU ID Number [id number] ID Type Hospital Number Cautery Settings Cut Setting 40 Coag Setting 60 Blend Setting 2 ESU Grounding Pad Ground Pad Type Adult Grounding Pad Site Right thigh Grounding Pad Yojana Swann [facility] Applied By Pref Card Builder Grounding Pad Site Warm, Dry, Intact Skin Condition Before Cautery Site Skin Condition WDL Before Comment Grounding Pad Site Unchanged Skin Condition After Cautery Site Skin Condition WDL After Comment Last Modified By: Yojana Swann [facility] Pref Card Builder 09/25/21 08:05:19 [facility] IntraOp Communication Entry 1 Entry 2 Communication To Family/Significant other Family/Significant other Comment START CLOSING Communication By Yojana Swann [facility] Grimes, Jennifer, [facility] Pref Card Builder Pref Card Builder Date and Time 09/25/21 08:44:00 09/25/21 09:11:00 Last Modified By: Yojana Swann [facility] Grimes, Jennifer, [facility] Pref Card Builder Pref Card Builder 09/25/21 08:44:47 09/25/21 09:11:38 [facility] IntraOp Communication Audit 09/25/21 09:11:38 Optical Fabricator: RICHARD Modifier: RICHARD <+> 2 Communication By <+> 2 Date and Time <+> 2 Communication To <+> 2 Comment [facility] IntraOp Counts Verification Entry 1 Procedure Thoracoscopy(Right) Count Info Count Type Sponge, Sharps, Miscellaneous Counts Verification Baseline/pre-procedure Sequence Count Results Not Applicable Counts Performed By Count Performed By ZOLTAN BAGLEY ST (Scrub) Count Performed By Yojana Swann [facility] (RN) Pref Card Builder Last Modified By: Yojana Swann [facility] Pref Card Builder 09/25/21 08:04:51 [facility] IntraOp Counts Final Entry 1 Procedure Thoracoscopy(Right) Final Count Info Count Type Sponge, Sharps, Miscellaneous Counts Verification Skin Closure/end of Sequence procedure Count Results Correct, surgeon notified Counts Performed By Count Performed By ZOLTAN BAGLEY ST (Scrub) Count Performed By Yojana Swann [facility] (RN) Pref Card Builder Last Modified By: Yojana Swann [facility] Pref Card Builder 09/25/21 09:20:47 [facility] IntraOp Counts Final Audit 09/25/21 09:20:47 Optical Fabricator: RICHARD Modifier: RICHARD 1 <*> Procedure Thoracoscopy(Right) 1 <+> Count Performed By (Scrub) 1 <+> Count Performed By (RN) [facility] IntraOp Cultures and Spec Summary Entry 1 Cultrures and Specimens Specimen Ordered: Yes Test(s) Routine/Path-Lab, Requested/Final Culture(s)/Microbiology Disposition Last Modified By: Yojana Swann [facility] Pref Card Builder 09/25/21 09:05:50 General Comments: 1. RIGHT MIDDLE LOBE - CULTURE [facility] IntraOp Cultures and Spec Summary Audit 09/25/21 09:05:50 Optical Fabricator: RICHARD Modifier: RICHARD 1 <*> Test(s) Requested/Final Disposition 1 <*> Test(s) Requested/Final Disposition 1 <*> Test(s) Requested/Final Disposition Culture(s)/Microbiology 1 <*> Test(s) Requested/Final Disposition Culture(s)/Microbiology 1 <*> Test(s) Requested/Final Disposition Culture(s)/Microbiology [facility] IntraOp Departure from OR Entry 1 Integumentary Assessment Integumentary WDL Assessment WDL Transfer/Handoff Transfer to PACU Phase I Handoff Method Bedside/Face to face, Phone call Post-op Transport Stretcher/Gurney Via Patient Transport OG MEDEIROS, Accompanied by DHRUV, LORETTA SALMERON PA Last Modified By: Yojana Swann [facility] Pref Card Builder 09/25/21 08:06:24 [facility] IntraOp Drains and Tubes Entry 1 Device Type Chest Tube Size 32 FR Drain/Tube Activity Tube secured/stabilized, Inserted Drain/Tube Suction Continuous low Drain/Tube Drainage Red Device Location chest, operative side Method of Drainage Continuous suction Chest Tubes Water-Seal 20 cm suction Connectivity Tube Dressing Dry, Intact Condition Last Modified By: Yojana Swann [facility] Pref Card Builder 09/25/21 09:05:58 [facility] IntraOp Drains and Tubes Audit 09/25/21 09:05:58 Optical Fabricator: RICHARD Modifier: RICHARD <+> 1 Size [facility] IntraOp Dressing and Packing Entry 1 Wound Dressing Item 4x4's Other Comments covaderm, Soft cloth paper tape Last Modified By: Yojana Swann [facility] Pref Card Builder 09/25/21 08:47:39 [facility] IntraOp Fire Risk Assessment Entry 1 Fire Info Surgical Site or 1- Yes Incision Above the Xyphoid Open O2 Source 0- No (Mask or Cannula) Available Ignition 1- Yes (ESU, Laser, Light Source) Fire Risk 2 Assessment Score Fire Score Fire Risk Yes Assessment Complete Fire Risk Yojana Swann [facility] Assessment Verified Pref Card Builder By Fire Risk 09/25/21 07:20:00 Assessment Verified Date/Time Fire Risk Standard Fire Yes Safety Precautions Followed Last Modified By: Yojana Swann [facility] Pref Card Builder 09/25/21 08:06:30 [facility] IntraOp General Case Professor Of Early Childhood Education 1 Case Information OR OR [facility] Case Level 1 Room Verified Yes Wound Class 1 - Clean Specialty Cardio Thoracic Anesthesia Type General ASA Class 3 Diagnosis Preop Diagnosis PULMONARY MYCOBACTERIAL INFECTION Postop Same As Preop No Postop Diagnosis SEE MD POST OP NOTE Wound Class Definitions Last Modified By: Yojana Swann [facility] Pref Card Builder 09/25/21 08:50:01 [facility] IntraOp General Case Data Audit 09/25/21 08:50:01 Optical Fabricator: RICHARD Modifier: RICHARD <+> 1 Preop Diagnosis <+> 1 Room Verified [facility] IntraOp Intraoperative Assessment Entry 1 Handoff Method Online nursing summary Valid History / Yes Physical in Chart Preoperative Yes Checklist Reviewed/Evaluated Allergies Reviewed Yes Patient is Latex No Sensitive Isolation Not applicable Precautions Noted Level of WDL Consciousness (WDL = Alert, Oriented to Person, Place, and Time) Skin Assessment Yes Verified Present Upon IVs, Oxygen Arrival to OR Last Modified By: Yojana Swann [facility] Qwaq Card Builder 09/25/21 08:06:58 [facility] IntraOp Intraoperative Equipment Entry 1 Type Monitoring Equipment Intraop Monitoring Electrocardiogram Five lead placement (ECG) Electrode Placement Blood Pressure Non-Invasive BP Device Source Blood Pressure Arm, right upper Location Pulse Oximeter Hand, left Probe Site Antiembolic Devices Antiembolic Devices Sequential compression device, knee high Antiembolic Device Bilateral Location Antiembolic Device [id number] ID Number Antiembolic Device 43 [id number] Setting Scopes Photo/Video Documentation Last Modified By: Yojana Swann [facility] Qwaq Card Buildemiliana 09/25/21 08:07:35 [facility] IntraOp Medication Admin Entry 1 Medication/Irrigant lidocaine 1% 30ml vial - [id number] Route of LOCAL Administration Dose Dose 30 Unit of Measure ml Administered By KEITH WADDELL MD-CAT Procedure Irrigation Last Modified By: Yojana Swann [facility] Qwaq Card Builder 09/25/21 08:53:08 [facility] IntraOp Patient Positioning Entry 1 Procedure Thoracoscopy(Right) Body Position Lateral, right side up Left Arm Position Secured on padded arm board Right Arm Position Secured across chest Left Leg Position Uncrossed, parallel Right Leg Position Uncrossed, parallel Feet Uncrossed Yes Pressure Points Yes Checked Positioning Devices Avalos Bag, Arm Board, Safety Strap, Thighs Device Position Operative side elevated, contreras foam headrest, lower leg flexed, and upper extended, axillary roll, pillows between arms and legs, ulnar nerve protector, foam between beanbag and patient's leg Positioned By Yojana Swann [facility] Qwaq Card Merlyn, OG MEDEIROS MD-ANS, KEITH WADDELL MD-CAT Position Verified Positioning Yes Verified by Anesthesia Positioning Yes Verified by Surgeon Last Modified By: Yojana Swann [facility] Pref Card Builder 09/25/21 08:07:52 [facility] IntraOp Sign In Entry 1 Patient, Site, Yes Procedure Identified Surgical Consent Yes Confirmed Relevant Surgical Yes Documents Available Surgical Site Yes Marked by person performing procedure Anesthesia Machine Yes Check Completed Medication Checks Yes Completed Allergies Yes Airway Difficult Yes Airway/Aspiration Risk Difficult Yes Airway/Aspiration Intervention Equipment Available Blood Loss Risk Yes Blood Loss Yes Intervention Equipment Prepared and Ready Blood Identifiers Not applicable Verified Per Policy Hypothermia Risk Yes Warming Measures Yes Taken Last Modified By: Yojana Swann [facility] Pref Card Builder 09/25/21 08:07:59 [facility] IntraOp Sign Out Entry 1 RN Confirmation Surgical Yes Procedure(s) Identified Instrument, Sponge Yes and Sharps Counts Correct/Documented Equipment Problems Yes Documented Specimen Labeled Yes Correctly Urinary Catheter N/A Documented in IView Wound Yes classification reviewed, verified and updated post case in both the General Case Data and Procedure segments Cahvez Patient Yes Recovery Concerns Reviewed with Anesthesia Provider, Surgeon and RN Chavez Patient Yes Management Concerns Reviewed with Anesthesia Provider, Surgeon and RN Safety Checklist Yes Elements Complete? RN Sign Out Yojana Swann [facility] Signature Pref Card Builder RN Sign Out 09/25/21 09:36:00 Signature Date/Time Plan of Care Outcome - Fire Risk OUTCOME STATEMENT: Goal met Patient is free from injury related to surgical fire Plan of Care Outcome - Pt Positioning OUTCOME STATEMENT: Goal met Absence of signs and symptoms of positioning injury. Plan of Care Outcome - Skin Prep OUTCOME STATEMENT: Goal met Intraoperative care is consistent with measures to prevent infection Plan of Care Outcome - Xray/Images OUTCOME STATEMENT: Goal met Absence of observable signs or symptoms of radiation injury Plan of Care Outcome - Counts OUTCOME STATEMENT: Goal met Absence of signs and symptoms of injury related to extraneous objects Last Modified By: Yojana Swann [facility] Pref Card Builder 09/25/21 09:36:42 [facility] IntraOp Sign Out Audit 09/25/21 09:36:42 Optical Fabricator: RICHARD Modifier: RICHARD <+> 1 RN Sign Out Signature Date/Time [facility] IntraOp Skin Prep Entry 1 Procedure Thoracoscopy(Right) Prescribed Yes Pre-Surgical Prep Completed Prep Area Operative side, chest laterally, anterior & posterior, shoulder to waist Intraop Prep Integumentary WDL Assessment WDL Prep Agents Chloraprep Prep by Yojana Swann [facility] Pref Card Buildemiliana Hair Removal Last Modified By: Yojana Swann [facility] Pref Card Builder 09/25/21 08:08:14 [facility] IntraOp Surgical Procedures Entry 1 Procedure Thoracoscopy Modifiers Right Additional (RT THORACOSCOPY, OPEN Procedure LUNG BIOPSY, POSSIBLE Description THORACOTOMY) Primary Procedure Yes Primary Surgeon KEITH WADDELL MD-CAT Start 09/25/21 08:44:00 Stop 09/25/21 09:27:00 Anesthesia Type General Specialty Cardio Thoracic Wound Class 1 - Clean Last Modified By: Yojana Swann [facility] Pref Card Builder 09/25/21 09:36:44 [facility] IntraOp Surgical Procedures Audit 09/25/21 09:36:44 Optical Fabricator: RICHARD Modifier: RICHARD <+> 1 Stop 09/25/21 08:51:52 Optical Fabricator: RICHARD Modifier: RICHARD <+> 1 Start [facility] IntraOP Time Out Entry 1 Procedure to be Thoracoscopy(Right) Performed Time Out Time Out Pause Time 09/25/21 08:43:00 All activity Yes suspended (unless life threatening emergency) Team Verbally Correct patient Confirms Information identity, Correct side and site are marked, Consent form is present and accurate, Agreement on the procedure to be done, Correct patient position, Relevant images/results properly labeled/appropriately displayed, Confirm antibiotics have been administered, Confirm the skin prep has dried, Confirm prosthesis/implant/devic e is present, Performed in location of procedure after prepped/draped Antibiotic Yes Prophylaxis Administered Or In Progress Within the Last 60 Minutes Beta Timoteo N/A Administered Venous Yes Thromboembolism Prophylaxis Required Anticipated Critical Events Surgeon None expected Anesthesia Provider None expected Nursing Assures Sterility of instruments Essential Imaging N/A Labeled and Displayed Last Modified By: Yojana Swann [facility] Pref Card Builder 09/25/21 08:44:08 [facility] IntraOP Time Out Audit 09/25/21 08:44:08 Optical Fabricator: RICHARD Modifier: RICHARD 1 <+> Time Out Pause Time 1 <*> Procedure to be Performed Thoracoscopy(Right) Case Comments <None> Finalized By: FAIZAN CHIU Document Signatures Signed By: Yojana Swann [facility] Pref Card Builder 09/25/21 09:36 CHIUFAIZAN 09/26/21 13:16 Unfinalized History Date/Time Username Reason for Unfinalizing Freetext Reason for Unfinalizing 09/26/21 13:14 [email or web address] Correct Billing Electronically signed by Saud [facility] Conversion [employer] Cerner at 02/20/2023 7:04 AM CDT documented in this encounter Plan of Treatment Not on file documented as of this encounter Visit Diagnoses Not on filedocumented in this encounter
--- OUTSIDE RECORDS SUMMARY | 2025-05-13 08:28 | XMS_ITS | Encounter Summary ---
Author Organization [employer] ([place], [place], [place], [place]) Address [address] [place] [address] Care Team Providers Care Diabetes Manager Name Role Phone Unavailable Primary Care Provider Unavailabl e Encounter Details Date Type Department Care Team (Late st Contact Info) Description 09/27/2021 Transcribed Document [facility] [place] [facility] [place] [address] ProviderTammi MD [address] [place] [address] Social History Tobacco Use Types Packs/Day Years Used Date Smoking Tobacco: Never Assessed Comments Unknown Sex and Gender Information Value Date Recorded Sex Assigned at Not on file Legal Sex Female 5:43 PM CDT Gender Identity Not on file Sexual Orientation Not on file documented as of this encounter Miscellaneous Notes * Cerner Conversion Note - Tammi ProviderMD - 09/27/2021 5:00 AM INSIDE SALES AGENT Chart Check - Review Order Profile Entered On: 09/27/2021 6:28 EST Performed On: 09/27/2021 5:00 EST by Sirisha Roland RN Chart Check Powerplans Initiated/Discontinued as Appropriate : Yes All Active Orders Reviewed : Yes Sirisha Roland RN - 09/27/2021 6:28 EST documented in this encounter Plan of Treatment Not on file documented as of this encounter Visit Diagnoses Not on filedocumented in this encounter
--- OUTSIDE RECORDS SUMMARY | 2025-05-13 08:28 | XMS_ITS | Data Portability ---
Author Organization [facility] & JUDY Love ADMIN Address [address] [place] [address] Care Team Providers Care Mold Preparer Name Role Phone CARISSA WILLSON Primary Care Provider Assessment Encounter Date Assessment Date Assessment LastModified by Organization Details LastModified Time 04/27/2025 04/27/2025 ASSESSMENT: Zohra Gutierrez is a 44-year-old female with recurrent urinary tract infections and a history of an InterStim implant placed in 2019, which has reportedly turned off by itself. PLAN: 1. Prescribe methenamine, a non-antibiotic medication that converts into formaldehyde in the urine, serving as a potent antiseptic. 2. Order a renal ultrasound to evaluate the kidneys for any potential dilation or abnormalities contributing to recurrent infections. 3. Advise the patient to call the clinic if breakthrough infections occur. 4. Schedule a follow-up appointment in three months to assess progress and response to treatment. 5. Encourage the patient to keep her upcoming appointment at for further evaluation of the InterStim implant. Please note this report was created using voice recognition/text compilation software documentation services during the encounter with the patient. [email or web address] Not available 04/27/2025 11:00:39 Plan of Treatment Reminders Order Date Submit Date Provider Last Modified By Organization Details Last Modified Time Details Appointments OV EST 15 2024 11:00A Magdiel CRABTREE MD Not available Not available Not available Lab urinalysi s, dipstick 2024 06 025 [email or web address] [facility], [address] [facility], [place], [address], 04/27/2025 11:02:23 Referral None recorded. Procedures bladder scan (PROC) 2024 025 [email or web address] [place] [address], [address] [facility] [address], [place], [address], 04/27/2025 11:02:23 Surgeries None recorded. Imaging US, renal 2024 025 [email or web address] [facility] (Centralized Scheduling), [address], [place], [address], 05/12/2025 11:40:07 Medication Orders Hiprex 1 gram tablet 2024 025 [facility], [address], [address], 04/27/2025 11:02:28 Patient TargetsNo targets recorded. Patient InstructionsNo instructions recorded. Reason for Referral None Reported. Results Created Date Observation Date Name Description Value Unit Range Abnormal Flag Note LastModifiedBy Organization Detail LastModifiedTime 04/27/2004/27/2025 urina lysis , dipst ick Leukocytes (reference range) negati ve Not Available [place] [address] [address] [facility], [place], [address], 04/27/2025 10:49:49 04/27/20 25 04/27/2025 urina lysis , dipst ick Nitrite (reference range:) negati ve Not Available [place] [address] [address] [facility], [place], [address], 04/27/2025 10:49:49 04/27/20 25 04/27/2025 urina lysis , dipst ick Urobilinogen (reference range) 0.2 Not Available [place] [address] [address] [facility], [place], [address], 04/27/2025 10:49:49 04/27/20 25 04/27/2025 urina lysis , dipst ick Protein (reference range) trace Not Available [place] [address] [address] [facility], [place], [address], 04/27/2025 10:49:49 04/27/20 25 04/27/2025 urina lysis , dipst ick pH (reference range 5-8.5) 6.0 Not Available Jennifer tral [place] [address] [address] [facility], [place], [address], 04/27/2025 10:49:49 04/27/20 25 04/27/2025 urina lysis , dipst ick Blood (reference range:) negati ve Not Available [place] [address] [address] [facility], [place], [address], 04/27/2025 10:49:49 04/27/20 25 04/27/2025 urina lysis , dipst ick Specific [place] (reference range) 1.005 Not Available [place] [address] [address] [facility] [address], [place], [address], 04/27/2025 10:49:49 04/27/20 25 04/27/2025 urina lysis , dipst ick Ketone (reference range) trace Not Available [place] [address] [address] [facility], [place], [address], 04/27/2025 10:49:49 04/27/20 25 04/27/2025 urina lysis , dipst ick Bilirubin (reference range) negati ve Not Available [place] [address] [address] [facility], [place], [address], 04/27/2025 10:49:49 04/27/20 25 04/27/2025 urina lysis , dipst ick Glucose (reference range) negati ve Not Available [place] [address] [address] [facility] [address], [place], [address], 04/27/2025 10:49:49 04/27/20 25 04/27/2025 urina lysis , dipst ick Color (reference range: yellow-brown ) Yellow Not Available [facility], [place], [address], 04/27/2025 10:49:49 04/27/20 25 04/27/2025 bladd er scan (PROC ) Calculated Residual Urine: 77ml Not Available [facility], [place], [address], 04/27/2025 10:49:12 05/06/20 25 05/05/2025 renal ,bila teral [facility] [address] [place] [address] Phone: Fax: Name: ZOHRA GUTIERREZ Exam Date: 05/05/20 : [birth year] Age 44 years Gender : F Access ion: [id number] 00 2110 Physic isaiah: OPHELIA CRABTREE Facili ty: [facility] Facili ty HSV: Outpat ient Exam: RENAL, BILATE RAL US Bilate ral renal ultras ound. Histor y urinar y tract infect ion. FINDIN GS: The right kidney measur es 9.8 x 4.0 x 4.1 cm. The Left kidney measur es 9.8 x 4.9 x 4.1 cm. No hydron ephros is. No solid or cystic renal mass. IMPRES LORENA: Normal renal ultras ound. Electr onical ly signed by: Willi davidson MD 2024 02:31 AM EDT RP Workst ation: [id number] Dictat ed By: Willi Holman Transc ribed By: Transc ribed On: 05/06/20 2:31 AM Electr onical ly signed by: Willi Holman 05/06/20 Thank you for referr ZOHRA Bishop to [facility] al. Legall y authen ticate d by ROSHAN GUZMAN Luis Enrique 5-0 05-06 02:31: 03 CC'ed Logic: Orderi ng Provid er: BRO OPHELIA Attend ing Provid er: BRO OPHELIA Admitt ing Provid er: BRO OPHELIA [email or web address] [facility] [address], [place], [address], 05/10/2025 13:01:19 Result Notes None recorded. Problems Name Problem SNOMED Code Status Onset Date Resolution Date Notes Provider Name and Address Organization Details Recorded Time Recurrent urinary tract infection 748712222 Active 025 OPHELIA CRABTREE MD [address], [place], [address] , [facility] & [place] 11:02:03 Problem Notes None recorded. Procedures Surgical History Date Name Laterality Status Provider Name and Address Organization Details Recorded Time operative procedure on knee completed Kelly Woods [place] - [place] [facility] & [place] 04/27/2025 10:48:57 ankle joint operations completed [facility] Woods [place] - [place] [facility] & [place] 04/27/2025 10:49:11 myringotomy and insertion of T tube completed Kelly Miramontesanneliese OLIVEIRA [facility]NT [facility] & [place] 04/27/2025 10:49:23 Imaging Results None recorded. Procedure Notes None recorded. Medical Equipment None Reported. Allergies Allergen ID Allergen Name Allergen Category Reaction Reaction Severity Criticality Documentation Date Start Date Code Code System Note Provider Name and Address Organization Details Recorded Time 688424 Bactrim medicatio n Not available Not available Not available 04/12/2025 65421 9 RxNorm Kelly Miramontesanneliese cant[place] - [facility] [facility] & [place] 13:49:34 Medications Name Sig Start Date Stop Date Status Note LastModified by Organization Details LastModified Time fluoxetine 40 mg capsule TAKE 1 CAPSULE BY MOUTH ONCE DAILY IN THE MORNING 04/27 completed Not Available Not Available Not Available cyclobenzap rine 10 mg tablet TAKE 1 TABLET BY MOUTH AT BEDTIME ONCE DAILY 04/27 completed Not Available Not Available Not Available buspirone 5 mg tablet TAKE 1 TABLET BY MOUTH TWICE DAILY active Not Available Not Available No t Available promethazin e-DM 6.25 mg-15 mg/5 mL oral syrup TAKE 5 ML BY MOUTH EVERY 6 HOURS FOR 7 DAYS 04/27 completed Not Available Not Available Not Available polyethylen e glycol 3350 17 gram oral powder packet DISSOLVE 1 PACKET IN 8 OUNCES OF WATER & DRINK ONCE DAILY 04/27 completed Not Available Not Available Not Available hydrocodone 5 mg-acetamin ophen 325 mg tablet TAKE 1 TABLET BY MOUTH EVERY 6 HOURS FOR 7 DAYS 04/27 completed Not Available Not Available Not Available prednisone 20 mg tablet TAKE 2 TABLETS BY MOUTH ONCE DAILY FOR 6 DAYS WITH FOOD OR MILK 04/27 completed Not Available Not Available Not Available sertraline 100 mg tablet TAKE 1 TABLET BY MOUTH IN THE MORNING FOR 3 DAYS THEN 1/2 (ONE-HALF ) ONCE DAILY FOR 3 DAYS THEN STOP. NEXT DAY START PROZAC 04/27 completed Not Available Not Available Not Available olanzapine 5 mg tablet TAKE 1 TABLET BY MOUTH AT BEDTIME NEEDED 04/27 completed Not Available Not Available Not Available phentermine 37.5 mg tablet TAKE 1 TABLET BY MOUTH ONCE DAILY BEFORE BREAKFAST 04/27 completed Not Available Not Available Not Available hydrocodone 10 mg-acetamin ophen 325 mg tablet TAKE 1 TABLET BY MOUTH EVERY 6 HOURS 04/27 completed Not Available Not Available Not Available methenamine hippurate 1 gram tablet TAKE 1 TABLET BY MOUTH TWICE DAILY active Not Available Not Available No t Available methotrexat e sodium 2.5 mg tablet TAKE 8 TABLETS BY MOUTH 1 TIME PER WEEK, FOLLOW DIRECTION S CAREFULLY AND TAKE EXACTLY DIRECTED 04/27 completed Not Available Not Available Not Available buspirone 10 mg tablet TAKE 1 TABLET BY MOUTH TWICE DAILY active Not Available Not Available No t Available fluoxetine 10 mg capsule TITRATION STEP 2: TAKE 1 CAPSULE BY MOUTH ONCE DAILY IN THE MORNING 04/27 completed Not Available Not Available Not Available diclofenac sodium 75 mg tablet,george yed release TAKE 1 TABLET BY MOUTH TWICE DAILY NEEDED FOR 10 DAYS 04/27 completed Not Available Not Available Not Available folic acid 1 mg tablet TAKE 1 TABLET BY MOUTH ONCE DAILY 04/27 completed Not Available Not Available Not Available levofloxaci n 500 mg tablet TAKE 1 TABLET BY MOUTH ONCE DAILY FOR 10 DAYS 04/27 completed Not Available Not Available Not Available zolpidem 10 mg tablet TAKE 1 TABLET BY MOUTH AT BEDTIME 04/27 completed Not Available Not Available Not Available cefdinir 300 mg capsule TAKE 1 CAPSULE BY MOUTH TWICE DAILY FOR 10 DAYS 04/27 completed Not Available Not Available Not Available fluoxetine 20 mg capsule TAKE 1 CAPSULE BY MOUTH ONCE DAILY IN THE MORNING (TITRATIO N STEP 1) 04/27 completed Not Available Not Available Not Available amoxicillin 875 mg-potassiu m clavulanate 125 mg tablet TAKE 1 TABLET BY MOUTH EVERY 12 HOURS FOR 7 DAYS 04/27 completed Not Available Not Available Not Available buspirone 15 mg tablet TAKE 1 TABLET BY MOUTH TWICE DAILY active Not Available Not Available No t Available cyclobenzap rine 5 mg tablet TAKE 1 TABLET BY MOUTH AT BEDTIME 04/27 completed Not Available Not Available Not Available aripiprazol e 5 mg tablet TAKE 1 TABLET BY MOUTH ONCE DAILY active Not Available Not Available No t Available bupropion HCl XL 150 mg 24 hr tablet, extended release TAKE 1 TABLET BY MOUTH ONCE DAILY IN THE MORNING active Not Available Not Available No t Available zolpidem ER 12.5 mg tablet,exte nded release,mul tiphase TAKE 1 TABLET BY MOUTH ONCE DAILY AT BEDTIME 04/27 completed Not Available Not Available Not Available aripiprazol e 2 mg tablet TAKE 1 TABLET BY MOUTH ONCE DAILY active Not Available Not Available No t Available desvenlafax ine succinate ER 50 mg tablet,exte nded release 24 hr TAKE 1 TABLET BY MOUTH ONCE DAILY IN THE MORNING AFTER PROZAC TAPER IS DONE active Not Available Not Available No t Available desvenlafax ine succinate ER 100 mg tablet,exte nded release 24 hr TAKE 1 TABLET BY MOUTH ONCE DAILY IN THE MORNING active Not Available Not Available No t Available Ubrelvy 100 mg tablet TAKE 1 TABLET BY MOUTH ONCE NEEDED, MAY TAKE SECOND DOSE AT LEAST 2 HOURS AFTER FIRST DOSE 04/27 completed Not Available Not Available Not Available Wegovy 1.7 mg/0.75 mL subcutaneou s pen injector INJECT CONTENTS OF 1 PEN ONCE A WEEK SUBCUTANE OUSLY 04/27 completed Not Available Not Available Not Available Wegovy 1 mg/0.5 mL subcutaneou s pen injector INJECT 1 SYRINGE SUBCUTANE OUSLY ONCE A WEEK 04/27 completed Not Available Not Available Not Available Wegovy 0.5 mg/0.5 mL subcutaneou s pen injector INJECT 1 SYRINGE SUBCUTANE OUSLY ONCE A WEEK 04/27 completed Not Available Not Available Not Available Qulipta 60 mg tablet TAKE 1 TABLET BY MOUTH ONCE DAILY 04/27 completed Not Available Not Available Not Available Vitals Date Recorded Body weight Oxygen saturation Oxygen saturation in Arterial blood by Pulse oximetry Heart rate Systolic And Diastolic Provider Name and Address Organization Details Last Updated DateTime 81622.4 3 g 97 % 97 % 96 /min 120/60 mm[Hg] Ilsa Mateusz [place] [facility] & [place] 10:48:52 Social History None recorded. Functional Status None recorded. Mental Status None recorded. Family History Nothing Reported. Medical History No medical history recorded. Gynecological HistoryNo gynecological history recorded. Obstetrics History GPAL:G 0 P 0 0 0 0 Past Encounters Encounter ID Performer Location Encounter Start Date Encounter Closed Date Diagnosis/Indication Diagnosis SNOMED-CT Code Diagnosis ICD10 Code Diagnosis Note [id number] OPHELIA CRABTREE MD [facility] [place] [address] 04/27/2025 10:32:39 04/27/2025 11:01:21 Recurrent urinary tract infection 959314242 N39.0 Health Concerns Section Related Observation LastModified by Organization Detai ls LastModified Time None Recorded Concern Status LastModified by Organization Details LastModified Time None Recorded Advance Directives Directive None Recorded Payers Insurance Date Sequence Insurance Name Policy Number Policy Daly Covered Member ID Daly Member ID Guarantor Name 09/02/2019 1 [place] [id number] Zhora Gutierrez [id number] Zohra Gutierrez 04/27/2025 1 [place] [id number] A Alexis Gutierrez [id number] Zohra Gutierrez Notes Date Note Type Note Provider Name and Address Organization Details Recorded Time 04/27/2025 text/html 04/27/25 [id number]-[id number]-femal e referred to my office for chronic UTI, no recent UA/UC. In 2019, had Interstim placement with Dr. Carpenter. Zohra Gutierrez is a 44-year-old female who presents for a new patient visit. She has a history of recurrent urinary tract infections (UTIs) and an InterStim implant [place] [address] Morgan. The device has reportedly turned off by itself, and she has experienced frequent UTIs recently. She has been taking usvg-zqy-khmawbt medications for symptom management. The patient states that the implant initially worked well since 2011 but is now nearing the five-year brunilda. She has not experienced fevers or kidney stones associated with the infections. She has an upcoming appointment at , which was scheduled following a referral by Dr. Willson. 01/20/25 Hgb 12.9, Hct 40.0, Cr 0.82, GFR 91.7, A1C 5.812 Cr 0.88, GFR 84.8, Hgb 13.8, Hct 43.509/08/27 Cr 0.81, GFR 93.7, Hgb 11.9, Hct 36.1 OPHELIA CRABTREE MD [address], [place], [address], [facility] & [place] 04/27/2025 12:59:52 OBGyn Episode No OBEpisode recorded.
--- NOTE | 2025-05-13 08:40 | ECG_ITS ---
APPROVED REPORT Exam: Resting ECG HR:64 bpm ECG Measurements Heart Rate 64 AXES MS 148 P 8 QRSd 92 QRS 41 QT 395 T 39 QTc 405 Conclusion SINUS RHYTHM Isolated Q in III - old finding Late R wave progression ABNORMAL ECG UNCONFIRMED REPORT Electronically signed by : Adam [place] MD 05/14/2025 07:17:43
[2025-05-13 09:56] LABS: Alanine Aminotransferase 17 U/L (12-78); Albumin Level 4.1 g/dl (3.5-5.0); Albumin/Globulin Ratio 1.7 (1.1-1.8); Alkaline Phosphatase 60 U/L (38-126); Anion Gap 13.0 mEq/L (5-15); Aspartate Amino Transferase 25 U/L (14-36); Bilirubin,Total 0.4 mg/dl (0.2-1.3); Blood Urea Nitrogen 5 mg/dl (7-17); Calcium 9.5 mg/dl (8.4-10.2); Carbon Dioxide 30 mmol/L (22.0-30.0); Chloride 99 mmol/L (98-107); Creatinine,Serum 0.60 mg/dl (0.52-1.04); Estimated Glomerular Filt Rate 110 ml/min (>60); GFR (African American) 133 ML/MIN (>60); Globulin 2.4 g/dL (1.3-3.2); Glucose 89 mg/dl (74-100); Potassium 4.0 mmoL/L (3.5-5.1); Sodium 138 mmol/L (136-145); Total Protein,Serum 6.5 g/dl (6.3-8.2)
[2025-05-13 10:25] LABS: Thyroid Stimulating Hormone 1.48 uIU/mL (0.465-4.68)
[2025-05-13 10:44] LABS: Vitamin B12 327 pg/mL (239-931)
== END 2025-05-13 23:59 | disposition home or self-care (01) ==
LOC: LAB 08:24
PROVIDERS: PCP Nurse Practitioner; Visit Provider Specialist
DX: R42 Dizziness and giddiness (principal)
CPT/HCPCS: 36415; 80053; 82607; 84443; 93005; 93225; 93227

== ENCOUNTER 2025-05-17 07:57 | Day surgery (SDC) | payer BC, SELFPAY ==
--- OUTSIDE RECORDS SUMMARY | 2025-03-30 14:00 | XMS_ITS | Encounter Summary ---
Author Organization Healthcare Address [address] [place] [address] Care Team Providers Care Coremaker Experimental Name Role Phone Brandon Gautam MD Unavailable [phone] Angel Pond MD Primary Care Provider [phone] Reason for Referral * Consultation (Routine) - Authorized Specialty Diagnoses / Procedures Referred By Contac t Referred To Contact Diagnoses LOUIS (obstructive sleep apnea) Brittany Oakes APRN [address] [place] [address] Phone: tel: fax: Referral ID Status Reason Start Date Expiration Date V isits Requested Visits Authorized [id number] Authorized 03/30/2025 09/29/2026 1 1 Reason for Visit * Reason Comments 3 month follow-up Encounter Details Date Type Department Care Team (Late st Contact Info) Description 03/30/2025 2:00 PM EDT Office Visit [facility] Sleep Disorder Center [address] [place] [address] Brittany Oakes APRN [address] [place] [address] LOUIS (obstructive sleep apnea) (Primary Dx) Social History Tobacco Use Types Packs/Day Years Used Date Smoking Tobacco: Former Cigarettes 0.5 23 0 11/04/1998 - 2021 Passive Smoke Exposure: Never Smokeless Tobacco: Never Alcohol Use Standard Drinks/Week Comments No 0 (1 standard drink = 0.6 oz pur e alcohol) PHQ-2 Answer Date Recorded Patient Health Questionnaire-2 Score 0 01/20/2025 PHQ-9 Answer Date Recorded Patient Health Questionnaire-9 Score 3 01/20/2025 PHQ-2A Answer Date Recorded Patient Health Questionnaire-2 Score 0 07/18/2023 Comments No Sex and Gender Information Value Date Recorded Sex Assigned at Not on file Legal Sex Female 8:23 PM EDT Gender Identity Not on file Sexual Orientation Not on file documented as of this encounter Last Filed Vital Signs Vital Sign Reading Time Taken Comments Blood Pressure - - Pulse - - Temperature - - Respiratory Rate - - Oxygen Saturation - - Inhaled Oxygen Concentration - - Weight 72.6 kg (160 lb) 03/30/2025 1:36 PM EDT Height 160 cm (5' 3 ) 03/30/2025 1:36 PM EDT Body Mass Index 28.34 03/30/2025 1:36 PM EDT documented in this encounter Miscellaneous Notes * Patient Instructions - Brittany Oakes APRN - 03/30/2025 2:00 PM EDT -Continue to work toward goal of using CPAP for all sleep which should include naps if taken. -Prescription updated to your supply company Patient Aids. -Mask fitting scheduled in our clinic for Saturday04/02/2025 at 10:00A. -Follow up in 3 months or sooner if needed. * Progress Notes - Brittany Oakes APRN - 03/30/2025 2:00 PM EDT Subjective Dear Angel Schofield MD, I had the pleasure of seeing Nancyjamari Gutierrez at the [facility] with/for 3 month follow-up. Visit Type: Established patient Telehealth Statement Patient Verification Patient identity has been confirmed using name and date of ? Yes Authorizations and Agreements/Telemedicine Consent sent and consent confirmed? Yes Patient Location: Home/Other Patient confirms they are physically located in [place]? Yes If the patient is not physically located in [place], the provider has confirmed with [facility] thatthe provider is authorized to provide services in patient's stated location? N/A Provider Location: [facility] facility Audio and video or audio only? Audio and video Total visit time: 30 minutes HPI Ms. Gutierrez is a 43 y/o BMI 26 who presents to the clinic today as a new consult for evaluation of snoring. Referred by rheumatology, Dr. Kilgore. She reports prior sleep study around 3+ years ago, reportedly unremarkable. She struggles with insomnia and is using Ambien and Robaxin, which improves sleeponset, but does not help her stay asleep. Presently, she endorses snoring and gasping/choking from sleep. She is unable to sleep in her bed, as she feels she has a ton of bricks on her chest . Denies witnessed apneas. She typically goes to bed at 9:30P. She takes nighttime medications at 8P. She wakes for the day at 4:45A with her , but then returns to sleep and sleeps intermittently until 10A. Her sleep schedule is generally consistent. She often listens to music at bedtime. Without medication, she wouldn't sleep or was only able to sleep 2-3 hours. She reports frequent nocturnal awakenings 2-3 times per night due to unknown cause. She may experience difficulty returning to sleep. She reports GERD. She does wake with a headache daily. She does not feel well rested from sleep and reports daytime sleepiness. She does nap on occasion. ESS 7 (<10 normal). Denies cataplexy or sleep-related hallucinations. Denies known dream enactment behavior, sleep walking/eating. She experiences tingling and fire sensation of right leg and pain in the left leg thatoccurs both through the day and night. Pain may at times be relieved movement. This occurs daily. She does not feel this impacts sleep. Positive sleep talking. Reports drowsy driving, but no history of MVA secondary to drowsiness. Denies significant weight gain/loss within the last year, chest pain, palpitations, swelling of extremities, allergies. She does voice recent congestion on chest and exertional dyspnea. Pertinent medical history includes asthma, anxiety, fibromyalgia, RA, anemia, chronic sinusitis, depression, h/o pericarditis. LVEF reportedly normal per echocardiogram (2021). Denies uncontrolled HTN, history of seizure, stroke, heart failure, DM, COPD. Denies any recent surgeries, hospitalizations, or major illnesses. Pertinent surgical history includes: tonsillectomy No known family history of sleep apnea. Occupation: unemployed Living situation: Caffeine intake: large amount of soda daily (reports that she only drinks sugar free soda) Tobacco use: current vaping; former cigarette smoker (x23 years, 1/2-1 PPD, quit 4-5 years ago) Illicit drug use: none ETOH use: none Exercise: none INTERVAL HISTORY: 03/30/25: Ms. Gutierrez returns to the clinic today for routine 3 month follow up of LOUIS. Patient initially established care with us in August 2024 for concerns of insomnia. Patient underwent a home sleep study on 10/13/2024 using the 3% rule. The monitoring time was 401 min which was adequate for interpretation. The study showed mild obstructive sleep apnea with a CHRISTIANO of 6.1 events/hour. The lowest desaturation was to 85% with 16.6 min spent with saturations <90%. Patient subsequently started on AutoPAP. She was then seen in clinic by Kelly Samano APRN for 31-90 day follow up and at that time, patient reported difficulties with CPAP tolerance. LOUIS was noted to be controlled on APAP 6-16 cm H2O with 100% total usage and residual AHI 2.6 events/hr. She was encouraged to trial full face mask and heated climate control tubing in hopes of improving comfort. Presently, she reports she was unable to receive a different mask style from [facility] due to insurance barriers. Because of this, her compliance has suffered. She is unable to tolerate nasal pillows, as the air leaks through her mouth and is very uncomfortable. She can only tolerate therapy for a short period. She is comfortable with the pressure and humidity settings. She is using heated climate control tubing. Utilizing RESMED Airsense 11. She denies aerophagia, morning headaches. When able to utilize therapy for an extended period, she is able to sleep through the night and wakes feeling more refreshed. ESS today is 8 (<10 normal). She also recently discontinued Ambien and feels sleep has improved with this. Overall, she is motivated to continue therapy. Denies recent surgeries, hospitalizations, major illnesses. DME: Patient Aids PAP Data Card Download Data card download: 30 days 02/19/2025 to 03/20/2025 Total usage: 47% >4 hour compliance: 3% Average use (days used): 1 hours 47 min Setting: AutoPAP 6-16 cm H2O 95th percentile pressure: 7.3 cm H2O, max pressure 7.6 cm H2O 95th percentile leak: 17.4 L/min, max leak 21.0 L/min Residual AHI: 0.4 oAHI (apnea plus hypopnea): 0.2 cAHI: 0.0 Medical History[1] Surgical History[2] Family History[3] Social History Tobacco Use Smoking status: Former Current packs/day: 0.00 Average packs/day: 0.5 packs/day for 23.0 years (11.5 ttl pk-yrs) Types: Cigarettes Start date: 11/04/1998 Quit date: 2021 Years since quittin.4 Passive exposure: Never Smokeless tobacco: Never Substance Use Topics Alcohol use: No Current Medications[4] All medications have been reviewed today. Allergies[5] Immunization History Administered Date(s) Administered Hep A, Adult 03/10/2018 Influenza, Recombinant, injectable, preservative free 08/05/2024 Influenza, injectable, quadrivalent 07/26/2020 Influenza, injectable, quadrivalent, preservative free 06/12/2016, 08/27/2017, 10/07/2023 Moderna COVID-19 Vaccine (Char Conveyor Tender) 12+ years 03/08/2021, 04/06/2021, 10/13/2021 Moderna COVID-19 Vaccine Bivalent 6months+ 08/31/2022 Moderna Covid-19 Vaccine 12y+, Mukul Protein, Preservative free 08/05/2024 Pneumococcal Polysaccharide PPV23 07/30/2016 Zoster, Recombinant 07/18/2023, 11/11/2023 The following portions of the chart were reviewed this encounter and updated as appropriate: Tobacco Allergies Meds Problems Med Hx Surg Hx Fam Hx ROS Constitutional: No significant changes in weight Psych: No changes in mood Objective There were no vitals taken for this visit. Height and Weight Height: 160 cm (5' 3 ) Weight: 72.6 kg (160 lb) BSA (Calculated - sq m): 1.8 sq meters BMI (Calculated): 28.35 Weight in (lb) to have BMI = 25: 140.8 List of Durable Medical Equipment Companies Patient Aids: xxxxx Physical Exam Constitutional: no acute distress, well appearing, and well nourished. BMI 28 Head and Face: normal, symmetrical Neck: trachea midline Pulmonary: No increased work of breathing or signs of respiratory distress Neurologic: alert and oriented to person, place, and time. Judgement and insight normal. Memory intact. Psychiatric: mood and affect appropriate Assessment/Plan: Problem List Items Addressed This Visit LOUIS (obstructive sleep apnea) - Primary Relevant Orders Follow Up Sleep Medicine Sleep PAP Supplies Discussion Summary: LOUIS, mild -CHRISTIANO 6.1 events/hr -Residual AHI well controlled on current APAP settings 6-16 cm H2O. Her compliance is currently poor due to poor mask fit and tolerance. Stressed importance of optimized compliance with goal of therapy to be used for all sleep. Additionally, discussed insurance requirements of 70%+ 4+ hour usage. Wi ll schedule mask fitting in our clinic in hopes of finding a mask that she is more comfortable with. Suspect mask leak is bothersome and impeding use. Additionally, encouraged desensitization techniques and recommended wearing CPAP in the evenings while awake. -Based on residual AHI and her subjective symptoms, the pressure is set appropriately. She continues to benefit from her CPAP. -Script renewed with supplies to DME Patient Aids, valid for one year. Encouraged follow-up with PCP to manage other comorbidities. -Follow-up in 3 months in sleep clinic to reassess CPAP compliance and tolerance following mask change. Discussed the importance of following up annually with us in the clinic to address issues, evaluate compliance, and make any adjustments to pressure. -No further questions at this time. Encouraged patient to call sooner with any concerns. Counseling Documentation: The patient was counseled regarding cpap education, cpap troubleshooting, instructions for management, patient and family education, impressions, and importance of compliance with treatment. Revieweddata card download and the importance of compliance with therapy. Education provided was verbal counseling. Additional time was spent in care coordination including medical record review. The total time of encounter was 30 minutes. [1] Past Medical History: Diagnosis Date Asthma Bruised rib Fibromyalgia, primary GERD (gastroesophageal reflux disease) Insomnia Low back pain Persistent pneumonia Personal history of other diseases of the female genital tract History of endometriosis Rheumatoid arthritis (CMS/HCC) RSV (respiratory syncytial virus infection) Ruptured ear drum Sinus infection [2] Past Surgical History: Procedure Laterality Date BRONCHOSCOPY HYSTERECTOMY N/A Hysterectomy from [facility] KNEE SURGERY N/A Knee Surgery from [facility] LUNG BIOPSY SALPINGOOPHORECTOMY N/A Salpingo-oophorectomy Bilateral from [facility] TYMPANOSTOMY TUBE PLACEMENT N/A Ear Pressure Equalization Tube, Insertion, Bilaterally from [facility] [3] Family History Problem Relation Name Age of Onset Diabetes Mother Mom Migraines Mother Mom Thyroid disease Mother Mom [4] Current Outpatient Medications Medication Sig Dispense Refill albuterol 108 (90 Base) MCG/ACT inhaler Inhale 2 puffs every 6 hours as needed for wheezing. ARIPiprazole (Abilify) 2 MG tablet Take 1 tablet (2 mg) by mouth daily. busPIRone (Buspar) 15 MG tablet Take 1 tablet (15 mg) by mouth 2 (two) times a day. cyclobenzaprine (Flexeril) 10 MG tablet Take 1 tablet (10 mg) by mouth nightly. desvenlafaxine (Pristiq) 50 MG 24 hr tablet TAKE 1 TABLET BY MOUTH ONCE DAILY IN THE MORNING AFTER PROZAC TAPER IS DONE FLUoxetine (PROzac) 40 MG capsule Take 1 capsule (40 mg) by mouth. methocarbamol (Robaxin) 750 MG tablet TAKE 1 TABLET BY MOUTH EVERY 4 HOURS FOR 7 DAYS phentermine (Adipex-P) 37.5 MG tablet Take 1 tablet (37.5 mg) by mouth daily before breakfast. polyethylene glycol (Miralax) 17 g packet DISSOLVE 1 PACKET IN 8 OUNCES OF WATER & DRINK ONCE DAILY Qulipta 60 MG tablet Take 60 mg by mouth daily. Ubrelvy 100 MG tablet Take 1 tablet (100 mg) by mouth 1 (one) time as needed for migraine. Upadacitinib ER (Rinvoq) 15 MG tablet sustained-release 24 hour Take 1 tablet (15 mg) by mouth daily. 30 tablet 3 Wegovy 1 MG/0.5ML solution auto-injector inject 1 syringe subcutaneously once a week zolpidem (Ambien) 10 MG tablet take 1 tablet by mouth once daily at bedtime for 30 days budesonide-formoterol (Symbicort) 160-4.5 MCG/ACT inhaler Inhale 2 puffs 2 (two) times a day. (Patient not taking: Reported on 03/30/2025) No current facility-administered medications for this visit. [5] Allergies Allergen Reactions Enbrel [Etanercept] Swelling and Rash documented in this encounter Plan of Treatment Upcoming Encounters Date Type Department Care Team (Late st Contact Info) Description 06/30/2025 2:00 PM EDT Office Visit [facility] Sleep Disorder Center [address] [place] [address] Brittany Oakes APRN [address] [place] [address] 07/07/2025 9:00 AM EDT Consult Medical Office Building Urology [address], [address] [place] [address] Leonela Patterson APRN, DNP [address] [place] [address] 08/25/2025 10:00 AM EDT Office Visit [facility] [address] [place] [address] Porsche Kilgore MD [address] [place] [address] Scheduled Referrals Name Type Priority Associated Diagnoses Orde r Schedule Follow Up Sleep Medicine Outpatient Referral Routine LOUIS (obstructive sleep apnea) Expected: 06/30/2025, Expires: 04/30/2026 documented as of this encounter Visit Diagnoses Diagnosis LOUIS (obstructive sleep apnea)- Primary Obstructive sleep apnea (adult) (pediatric) documented in this encounter Additional Health Concerns Assessment Noted Time PHQ-9 Depression Total Score: 3 01/21/20 25 11:43 AM EDT A fall risk assessment has been complete d for the patient 03/30/2025 1:41 PM EDT A Body Mass Index follow-up plan has been documented for the patient 03/30/2025 2:17 PM EDT documented as of this encounter Care Teams Coremaker Experimental Relationship Specialty Start Date End Date Angel Pond MD [address] [place] [address] [address] [place] [address] PCP - General 09/11/22 Brandon Gautam MD [address] [place], [place] [id number] Referring Physician 01/04/22 documented as of this encounter
--- OUTSIDE RECORDS SUMMARY | 2025-05-17 07:59 | XMS_ITS | Encounter Summary ---
Author Organization Healthcare Address [address] [place] [address] Care Team Providers Care Sportspersons Name Role Phone Brandon Gautam MD Unavailable [phone] Angel Pond MD Primary Care Provider [phone] Encounter Details Date Type Department Care Team (Late st Contact Info) Description 05/20/2023 Lab Requisition [facility] [address] [place] [address] Vega Willett DO [address] [place] [address] Routine general medical examination at a health care facility Social History Tobacco Use Types Packs/Day Years Used Date Smoking Tobacco: Former Cigarettes 0.5 23 - 2021 Passive Smoke Exposure: Never Smokeless [...] Description 06/30/2025 2:00 PM EDT Office Visit [facility] [address] [place] [address] Brittany Oakes, MEAT COUNTER CLERK [address] [place] [address] 07/07/2025 9:00 AM EDT Consult Medical Office Building Urology [address] [facility], [address] [place] [address] Leonela Patterson APRN, DNP [address] [place] [address] 08/25/2025 10:00 AM EDT Office Visit [facility] [address] [place] [address] Porsche Kilgore MD [address] [place] [address] documented as of this encounter [...] 4.20 uIU/mL 05/20/2023 11:48 AM EDT [facility] Blood Venous blood specimen / Unknown Venipuncture / Unknown 05/20/2023 6:52 AM EDT 05/20/2023 7:44 AM EDT Narrative [facility] - 05/20/2023 11:48 AM EDT Trimester Specific Ranges TSH ( IU/mL) 1st Trimester 0.1 - 3.0 2nd Trimester 0.19 - 4.06 3rd Trimester 0.3 - 3.7 [facility] A Willett DO LAB BLOOD ORDERABLES Final Result Performing Organization Address [facility] de Phone Number HEALTHCARE LAB [address] [place] [address] * Vitamin D 25 Hydroxy (05/20/2023 6:52 AM EDT) Vitamin D 25 Hydroxy 20.8 20.0 - 80.0 ng/mL 05/20/2023 12:38 PM EDT [facility] Comment: Vitamin D, 25-Hydroxy reference range, age 18 years and up: Deficiency: <12 ng/mL Insufficiency: 12 to 19 ng/mL Sufficiency: 20 to 80 ng/mL Possible toxicity: >100 ng/mL Blood Venous blood specimen / Unknown Venipuncture / Unknown 05/20/2023 6:52 AM EDT 05/20/2023 7:48 AM EDT Narvii DO LAB BLOOD ORDERABLES Final Result Performing Organization Address [facility] Phone Number HEALTHCARE LAB [address] [place] [address] * (ABNORMAL) Basic metabolic panel (05/20/2023 6:52 AM EDT) Glucose, Plasma 88 74 - 99 mg/dL 05/20/2023 11:48 AM EDT [facility] BUN, Plasma 8 7 - 21 mg/dL 05/20/2023 11:48 AM EDT [facility] Creatinine, Plasma 0.91 0.60 - 1.10 mg/dL 05/20/2023 11:48 AM EDT [facility] BUN/Creatinine Ratio 9 05/20/2023 11:48 AM EDT [facility] Sodium, Plasma 143 136 - 145 mmol/L 05/20/2023 11:48 AM EDT [facility] Potassium, Plasma 3.9 3.7 - 4.8 mmol/L 05/20/2023 11:48 AM EDT [facility] Chloride, Plasma 104 97 - 107 mmol/L 05/20/2023 11:48 AM EDT [facility] CO2, Plasma 30(H) 22 - 29 mmol/L 05/20/2023 11:48 AM EDT [facility] Anion Gap 9 6 - 16 mmol/L 05/20/2023 11:48 AM EDT [facility] Total Calcium, Plasma 8.9 8.9 - 10.2 mg/dL 05/20/2023 11:48 AM EDT [facility] eGFRcr 82.0 mL/min/1.7 3m*2 05/20/2023 11:48 AM EDT [facility]ALTH[facility]ARE [facility] Comment: Reported eGFRcr in mL/min/1.73m2 is based the CKD-EPI 2021 equation that does not use a race coefficient. Effective 05/30/22 our laboratory changed the eGFR calculation to the CKD-EPI 2021 equation from the previously reported eGFR, based on the MDRD equation. For comparisons between the two equations, please see laboratory website: [email or web address] Blood Venous blood specimen / Unknown Venipuncture / Unknown 05/20/2023 6:52 AM EDT 05/20/2023 7:44 AM EDT Vega Willett DO LAB BLOOD ORDERABLES Final Result [facility] [address] [place] [address] documented in this encounter Visit Diagnoses Diagnosis [...] documented as of this encounter Care Teams Sportspersons Relationship Specialty Start Date End Date Angel Podn MD [address] [place] [address] [address] [place] [address] PCP - General 09/11/22 Brandon Gautam MD [address] [address] Referring Physician 01/04/22 documented as of this encounter
--- OUTSIDE RECORDS SUMMARY | 2025-05-17 08:00 | XMS_ITS | Encounter Summary ---
Author Organization [facility] Address [address] [place] [address] Care Team Providers Care Data Processing Equipment Repairer Name Role Phone Brandon Gautam MD Unavailable [phone] Angel Pond MD Primary Care Provider [phone] Reason for Visit * Reason Comments Med Refill Encounter Details Date Type Department Care Team (Late st Contact Info) Description 04/12/2025 Refill [facility] [address] [place] [address] Porsche Kilgore MD [address] [place] [address] Rheumatoid arthritis involving multiple sites [...] Miscellaneous Notes * Telephone Encounter - Toan Garcia PharmD - 04/12/2025 8:05 AM EDT 1 medication(s) has been approved per protocol. documented in this encounter Plan of Treatment Upcoming Encounters Date Type Department Care Team (Late st Contact Info) Description 06/30/2025 2:00 PM EDT Office Visit [facility] [address] [place] [address] Brittany Oakes APRN [address] [place] [address] 07/07/2025 9:00 AM EDT Consult Medical Office Building Urology [address] [facility], [address] [place] [address] Leonela Patterson APRN, DNP [address] [place] [address] 08/25/2025 10:00 AM EDT Office Visit [facility] [address] [place] [address] Porsche Kilgore MD [address] [place] [address] documented as of this encounter Visit Diagnoses Diagnosis Rheumatoid arthritis involving multiple sites with positive rheumatoid factor ([facility])- Primary documented in this encounter Additional Health Concerns Assessment Noted Time PHQ-9 Depression Total Score: 3 01/21/20 25 11:43 AM EDT A fall risk assessment has been complete d for the patient 03/30/2025 1:41 PM EDT A Body Mass Index follow-up plan has been documented for the patient 03/30/2025 2:17 PM EDT documented as of this encounter Care Teams Data Processing Equipment Repairer Relationship Specialty Start Date End Date Angel Pond MD [address] [place] [address] [address] [place] [address] PCP - General 09/11/22 Brandon Gautam MD [address], [place] [address] Referring Physician 01/04/22 documented as of this encounter
--- OUTSIDE RECORDS SUMMARY | 2025-05-17 08:00 | XMS_ITS | Encounter Summary ---
Author Organization [employer] ([place], [place], [place], [place]) Address [address] [place] [address] Care Team Providers Care Maintenance Of Way Supervisor Name Role Phone Unavailable Primary Care Provider Unavailabl e Encounter Details Date Type Department Care Team (Late st Contact Info) Description 09/27/2021 Transcribed Document [facility] Family Medicine [facility] [address] ProviderTammi MD [address] [place] [address] Social History Tobacco Use Types [...] - Tammi ProviderMD - 09/27/2021 5:00 PM SHOOTING GALLERY OPERATOR Chart Check - Review Order Profile Entered On: 09/27/2021 17:21 EST Performed On: 09/27/2021 17:00 EST by NIKKI PHILLIPS RN Chart Check All Active Orders Reviewed : Yes NIKKI PHILLIPS RN - 09/27/2021 17:20 EST Electronically signed by Raheem Villavicencio Conversion Regional Construction Manager Mckenziener at 02/20/2023 7:25 AM CDT documented in this encounter Plan of Treatment Not on file documented as of this encounter Visit Diagnoses Not on filedocumented in this encounter
--- OUTSIDE RECORDS SUMMARY | 2025-05-17 08:00 | XMS_ITS | Encounter Summary ---
Author Organization [employer] ([place], [place], [place], [place]) Address [address] [place] [address] Care Team Providers Care Production Wood Craftsman Name Role Phone Unavailable Primary Care Provider Unavailabl e Encounter Details Date Type Department Care Team (Late st Contact Info) Description 09/27/2021 Transcribed Document [facility] [place] [facility] [place] [address] ProviderTammi MD [address] [place] [address] Social History Tobacco Use Types [...] - Tammi ProviderMD - 09/27/2021 5:00 AM PARKS WORKER Chart Check - Review Order Profile Entered [...]
--- OUTSIDE RECORDS SUMMARY | 2025-05-17 08:00 | XMS_ITS | Data Portability ---
Author Organization TEE - YADIRA Landeros GILE CLOSED Address [address] [facility] [address] [place] [address] Care Team Providers Care Roller Die Cutting Machine Operator Name Role Phone MICHELINE BARKER Wreath Machine Operator Assessment No assessment recorded. Plan of Treatment Reminders Order Date Submit Date Provider Last Modified By Organization Details Last Modified Time Details Appointments None recorded. Lab None recorded. Referral None recorded. Procedures None recorded. Surgeries None recorded. Imaging None recorded. Medication Orders azelastine 137 mcg (0.1 %) nasal spray 2019 020 INTERFACE [facility], [address], [address], 0 09:59:00 Patient TargetsNo targets recorded. Patient Instructions Encounter Date Encounter Id Patient Instructions Last Modified By Organization Details Last Modified Time 01/20/2020 [id number] Ms Gutierrez I suspect has posterior neck adiposity from her chronic steroid use. I do not appreciate a discrete mass in the area, it is more a diffuse accumulation. She is rather tender over it though. We'll set up a neck CT (unable to do MRI's 2/2 bladder stimulator) to ensure nothing else going on. Possible the tenderness is related to her fibro. She also has bilateral ETD, and presumably a micro perf on the left (I do not appreciate an obvious perf on exam but large volume on tymps and can hear air on valsalva). Previously has not tolerated flonase. Will trial astelin. [email or web address] Not available 01/20/2020 09:53:55 Reason for Referral None Reported. Results Created Date Observation Date Name Description Value Unit Range Abnormal Flag Note LastModifiedBy Organization Detail LastModifiedTime 01/20/20 20 01/20/2020 audio gram No observ ation record ed. BARCODE Not Available 2019 14:06:50 Result Notes None recorded. Procedures Surgical History Date Name Laterality Status Provider Name and Address Organization Details Recorded Time 01/20/20 Tympanogram completed TESSA WING, AUD [address] [place], [address], [facility] 01/20/2020 09:40:12 01/20/20 Audiogram completed TESSA WING, AUD [address] [place], [address], [facility] 01/20/2020 09:40:11 procedure on knee completed [facility] 01/20/2020 08:57:07 procedure on ankle completed [facility] 01/20/2020 08:57:16 Imaging Results None recorded. Procedure Notes None recorded. Medical Equipment None Reported. Allergies No known drug allergies Medications Name Sig Start Date Stop Date Status Note LastModified by Organization Details LastModified Time celecoxib 200 mg capsule active Not Available Not Available Not Available cyclobenz aprine 10 mg tablet 01/19 completed Not Available Not Available Not Available prednison e 10 mg tablet 01/19 completed Not Available Not Available Not Available gabapenti n 600 mg tablet active Not Available Not Available Not Available doxycycli ne hyclate 100 mg capsule 01/19 completed Not Available Not Available Not Available clindamyc in HCl 300 mg capsule 01/19 completed Not Available Not Available Not Available azithromy margaret 250 mg tablet 01/19 completed Not Available Not Available Not Available fluconazo le 150 mg tablet 01/19 completed Not Available Not Available Not Available hydrocodo ne 5 mg-acetam inophen 325 mg tablet 01/19 completed Not Available Not Available Not Available prednison e 20 mg tablet 01/19 completed Not Available Not Available Not Available gabapenti n 400 mg capsule 01/19 completed Not Available Not Available Not Available prednison e 5 mg tablet active Not Available Not Available Not Available sulfameth oxazole 800 mg-trimet hoprim 160 mg tablet 01/19 completed Not Available Not Available Not Available leflunomi de 20 mg tablet 01/19 completed Not Available Not Available Not Available prednison e 10 mg tablets in a dose pack 01/19 completed Not Available Not Available Not Available cephalexi n 500 mg capsule 01/19 completed Not Available Not Available Not Available nicotine 21 mg/24 hr daily transderm al patch 01/19 completed Not Available Not Available Not Available Elimite 5 % topical cream As Directed 01/19 completed Duration : 1 day;Inst ructions : Apply from the neck to the toes in a thin layer before bedtime, leave on overnigh t and then wash off in the morning. Do this once, and repeat in 1 week;Jamie quency: as direct.; Medicati on Descript ion: permethr in topical; Dosage:a s directed ; Route:to pical; refills: 1; Quantity :1 large cream Not Available Not Available Not Available gabapenti n 300 mg capsule 01/19 completed Not Available Not Available Not Available mupirocin 2 % topical ointment 01/19 completed Not Available Not Available Not Available azelastin e 137 mcg (0.1 %) nasal spray [place] 1 spray twice a day by intranas al route. 2019 active Not Available Not Available Not Avai lable Pepcid 20 mg tablet Two times a day 01/19 completed Duration : 10 days;Jamie quency: bid;Medi cation Descript ion: famotidi ne; Route:or al; refills: 0; Quantity :60 tablet Not Available Not Available Not Available levofloxa margaret 500 mg tablet 01/19 completed Not Available Not Available Not Available ipratropi um bromide 42 mcg (0.06 %) nasal spray 01/19 completed Not Available Not Available Not Available brompheni ramine-ps eudoephed rine-DM 2 mg-30 mg-10 mg/5 mL oral syrup 01/19 completed Not Available Not Available Not Available ondansetr on 4 mg disintegr ating tablet 01/19 completed Not Available Not Available Not Available cefdinir 300 mg capsule 01/19 completed Not Available Not Available Not Available fluticaso ne propionat e 50 mcg/actua tion nasal spray,alfonzo pension 01/19 completed Not Available Not Available Not Available amoxicill in 875 mg-potass ium clavulana te 125 mg tablet 01/19 completed Not Available Not Available Not Available amoxicill in 500 mg-potass ium clavulana te 125 mg tablet 01/19 completed Not Available Not Available Not Available Benadryl 25 mg capsule Four times a day 01/19 completed Duration : 10 days;Jamie quency: qid;Alt Frequenc y: prn;Medi cation Descript ion: diphenhy dramine; Dosage:1 -2; Route:or al; refills: 0; Quantity :40 capsule Not Available Not Available Not Available duloxetin e 60 mg capsule,d elayed release active Not Available Not Available Not Available prednisol one 01/19 completed Medicati on Descript ion: predniso lone; Route:or al; refills: 0 Not Available Not Available Not Available ProAir HFA 90 mcg/actua tion aerosol inhaler 01/19 completed Not Available Not Available Not Available Symbicort 80 mcg-4.5 mcg/actua tion HFA aerosol inhaler 01/19 completed Not Available Not Available Not Available Trelegy Ellipta 100 mcg-62.5 mcg-25 mcg powder for inhalatio n 01/19 completed Not Available Not Available Not Available Vitals Date Recorded Body weight Body mass index (BMI) Body height Heart rate Oxygen saturation Oxygen saturation in Arterial blood by Pulse oximetry Body temperature Systolic And Diastolic Provider Name and Address Organization Details Last Updated DateTime 0 [address]6065.0 7 g 29.9 kg/m2 162.56 cm 84 /min 96 % 96 % 97.8 [degF] 125/80 mm[Hg] [facility] 0 09:05:46 Social History Question Answer Notes LastModified by [employer] ion Details LastModified Time Tobacco Smoking Status Former Smoker [facility] 01/20/2020 08:56:45 How Much Tobacco Do You Chew? None Information not available 01/20/2020 How Much Tobacco Do You Smoke? No Information not available 01/20/2020 Sex: Unknown Functional Status Question Answer Note LastModified by Organizat ion Details LastModified Time What is your level of alcohol consumption? None [email or web address] Information not available 01/20/2020 Do you or have you ever used smokeless tobacco? Never used smokeless tobacco [email or web address] Information not available 01/20/2020 Do you or have you ever used e-cigarettes or vape? Never used electronic cigarettes [email or web address] Information not available 01/20/2020 Mental Status None recorded. Family History Nothing Reported Notes:kidney problems brothe r Medical History Condition Response Anxiety Disorder Y Heart Attack ([place]) N Cancer N Arthritis Y Stroke N Depression Y Gynecological HistoryNo gynecological history recorded. Obstetrics History GPAL:G 0 P 0 0 0 0 Past Encounters Encounter ID Performer Location Encounter Start Date Encounter Closed Date Diagnosis/Indication Diagnosis SNOMED-CT Code Diagnosis ICD10 Code Diagnosis Note [id number] MD TEE LOCKWOOD [facility] CLOSED [address] [place] [address] 01/20/2020 08:41:41 01/22/2020 11:39:34 Rheumatoid arthritis 07331941 M06.9 Long-term current use of systemic steroid 9401307585 93149 Z79.52 Localized swelling, mass and lump, neck 910878665 R22.1 possible adiposity from steroid use Dysfunctio n of eustachian tube 34718050 H69.93 [id number] EVELIA HURTADO ENT [facility] CLOSED [address] [place] [address] 01/20/2020 09:39:47 01/20/2020 12:51:04 Perforation of left tympanic membrane 5695313307 948770 H72.92 Left condu ctive hearing loss 8195142588 107 H90.12 Health Concerns Section Related Observation LastModified by Organization Detai ls LastModified Time None Recorded Concern Status LastModified by Organization Details LastModified Time None Recorded Advance Directives Directive None Recorded Payers Insurance Date Sequence Insurance Name Policy Number Policy Daly Covered Member ID Daly Member ID Guarantor Name 01/20/2020 1 [place] [id number] Alexis Gutierrez [id number] Nancy Gutierrez Notes Date Note Type Note Provider Name and Address Organization Details Recorded Time 01/20/2020 text/html Ms Gutierrez present s for evaluation of her ears and a neck mass. Regarding her ears, she has had ETD her whole life. She has had multiple sets of tubes, the last about 3 years ago. She thinks the tubes have come out. She has decreased hearing and tinnitus on both sides. Denies significant allergies or sinus issues. Tried flonase before and states it burned in her nose too much to use. No current nasal sprays. Over the past two months she has noticed swelling at the midline of the back of her neck. It is tender to touch. Always there, does not fluctuate. She thinks is getting bigger. She has been on prednisone for RA/fibro for a couple of years. Also takes celebrex, gabapentin, and duloxetine. She has a bladder stimulator and can not get MRI scans. AMBER SHORT MD [facility] [place], [address], [facility] 01/20/2020 09:58:50 OBGyn Episode No OBEpisode recorded.
--- OUTSIDE RECORDS SUMMARY | 2025-05-17 08:00 | XMS_ITS | Encounter Summary ---
Author Organization [employer] ([place], [place], [place], [place]) Address [address] [place] [address] Care Team Providers Care Jig Box Operator Name Role Phone Unavailable Primary Care Provider Unavailabl e Encounter Details Date Type Department Care Team (Late st Contact Info) Description 09/29/2021 Transcribed Document [facility] [place] [facility] [place] [address] ProviderTammi MD [address] [place] [address] Social History Tobacco Use Types [...] Tammi Lam MD - 09/29/2021 10:27 AM RAIL CAR WELDER Final Discharge Planning Entered On: 09/29/2021 10:31 EST Performed On: 09/29/2021 10:27 EST by KRYSTEN LOPEZ RN-Storekeeper Helper Final Discharge Planning Discharge Arrangements : Patient Post-Acute Information Patient Name: ZOHRA GUTIERREZ Gender: Female : [birth year] Age: 40 Years No Post-Acute Placement(s) Listed No Post-Acute Service(s) Listed No Curaspan Referral(s) Listed Patient Offered Choice/Affiliations Explained : Yes (Comment: Patient was offered a list of DME providers that included CMS star ratings but did not have a preference for provider. [KRYSTEN LOPEZ RN-Storekeeper Helper - 09/29/2021 10:27 EST] ) Designation of Choice Signed : Yes Transportation Needs : Family/Friend Follow Up Appointment Scheduled : No (Comment: List of follow up appointments sent to Patient Access to schedule. [KRYSTEN LOPEZ, RN-Storekeeper Helper - 09/29/2021 10:27 EST] ) Is Patient High/Moderate Readmission Risk? : No Patient/Family Notified of Plan : Yes Patient/Family Notified : Patient Is Patient Ready for Discharge? : Yes Physician Notified Patient is Ready for Discharge? : Yes Discharge To Care Management : Home/Residential/Alf or Self Care -01 KRYSTEN LOPEZ RN-Storekeeper Helper - 09/29/2021 10:27 EST Final Narrative Note Final Narrative Note : RAR Low ELOS: 4 days HD#4 DCP: Discharge home on 3 liters of Oxygen with [facility]. KRYSTEN LOPEZ RN-Storekeeper Helper - 09/29/2021 10:27 EST documented in this encounter Plan of Treatment Not on file documented as of this encounter Visit Diagnoses Not on filedocumented in this encounter
--- OUTSIDE RECORDS SUMMARY | 2025-05-17 08:00 | XMS_ITS | Encounter Summary ---
Author Organization [employer] ([place], [place], [place], [place]) Address [address] [place] [address] Care Team Providers Care Information Security Name Role Phone Unavailable Primary Care Provider Unavailabl e Encounter Details Date Type Department Care Team (Late st Contact Info) Description 09/29/2021 Transcribed Document [facility] [place] [facility] [address] ProviderTammi MD [address] [place] [address] Social History Tobacco Use Types [...] Tammi Lam MD - 09/29/2021 8:31 AM WELL POINT PUMPING SUPERVISOR Patient: ZOHRA GUTIERREZ Age: 40 years Sex: [...] Radiology results Radiology Results (Last 48 hours) [id number] -- 09/25/2021 09:19 CT Chest WO (09/27/2021 [...] reviewed, interpreted, and dictated by Dr. Alla Ryees.Transcribed by April Gudino PA-C.I have personally viewed, [...] needed Appointment in two weeks Path pending Electronically signed by Saud [facility] Conversion Armored Truck Driver Cerner at 02/20/2023 7:10 AM CDT documented in this encounter Plan of Treatment Not on file documented as of this encounter Visit Diagnoses Not on filedocumented in this encounter
--- OUTSIDE RECORDS SUMMARY | 2025-05-17 08:00 | XMS_ITS | Referral Summary ---
Author Organization [employer] ([place], [place], [place], [place]) Address [address] [place] [address] Care Team Providers Care Computer Programming Professor Name Role Phone Unavailable Primary Care Provider [...]
--- OUTSIDE RECORDS SUMMARY | 2025-05-17 08:00 | XMS_ITS | Encounter Summary ---
Author Organization [employer] ([place], [place], [place], [place]) Address [address] [place] [address] Care Team Providers Care Medical Delivery Driver Name Role Phone Unavailable Primary Care Provider Unavailabl e Encounter Details Date Type Department Care Team (Late st Contact Info) Description 09/29/2021 Transcribed Document [facility] [place] [address] [place] [address] ProviderTammi MD [address] [place] [address] Social History Tobacco Use Types [...] - Tammi ProviderMD - 09/29/2021 5:00 AM ADVERTISING ASSISTANT MANAGER Chart Check - Review Order Profile Entered On: 09/29/2021 5:12 EST Performed On: 09/29/2021 5:00 EST by Sirisha Roland RN Chart Check Powerplans Initiated/Discontinued as Appropriate : Yes All Active Orders Reviewed : Yes Sirisha Roland RN - 09/29/2021 5:12 EST Electronically signed by Saud [facility] Conversion Digital Computer Systems Analyst Cerner at 02/20/2023 7:15 AM CDT documented in this encounter Plan of Treatment Not on file documented as of this encounter Visit Diagnoses Not on filedocumented in this encounter
--- OUTSIDE RECORDS SUMMARY | 2025-05-17 08:00 | XMS_ITS | Encounter Summary ---
Author Organization [employer] ([place], [place], [place], [place]) Address [address] [place] [address] Care Team Providers Care Vacuum System Tester Name Role Phone Unavailable Primary Care Provider Unavailabl e Encounter Details Date Type Department Care Team (Late st Contact Info) Description 09/29/2021 Transcribed Document [facility] [place] [facility] [place] [address] ProviderTammi MD [address] [place] [address] Social History Tobacco Use Types [...] - Tammi ProviderMD - 09/29/2021 2:00 AM CHANGE MANAGEMENT DIRECTOR Body Trimmer Upholsterer Details Entered On: 09/29/2021 2:03 EST Performed [...] Sirisha Roland RN - 09/29/2021 2:03 EST documented in this encounter Plan of Treatment Not on file documented as of this encounter Visit Diagnoses Not on filedocumented in this encounter
--- OUTSIDE RECORDS SUMMARY | 2025-05-17 08:00 | XMS_ITS | Encounter Summary ---
Author Organization [employer] ([place], [place], [place], [place]) Address [address] [place] [address] Care Team Providers Care Branch Operations Manager Name Role Phone Unavailable Primary Care Provider Unavailabl e Encounter Details Date Type Department Care Team (Late st Contact Info) Description 09/28/2021 Transcribed Document [facility] [place] [facility] [place] [address] ProviderTammi MD [address] [place] [address] Social History Tobacco Use Types Packs/Day Years Used Date Smoking Tobacco: Never Assessed Comments Unknown Sex and Gender Information Value Date Recorded Sex Assigned at Not on file Legal Sex Female 5:43 PM CDT Gender Identity Not on file Sexual Orientation Not on file documented as of this encounter Miscellaneous Notes * [employer]ner Conversion Note - Tammi ProviderMD - 09/28/2021 1:09 PM CHILD CARE CENTER ADMINISTRATOR On Going Discharge Planning Entered On: 09/28/2021 [...] CM will continue to follow. ROBERTO JEFFRIES, Male Model - 09/27/21 17:11:11 ROBERTO JEFFRIES Male Model - 09/28/2021 13:09 EST documented in this encounter Plan of Treatment Not on file documented as of this encounter Visit Diagnoses Not on filedocumented in this encounter
--- OUTSIDE RECORDS SUMMARY | 2025-05-17 08:00 | XMS_ITS | Encounter Summary ---
Author Organization [employer] ([place], [place], [place], [place]) Address [address] [place] [address] Care Team Providers Care Invoice Machine Operator Name Role Phone Unavailable Primary Care Provider Unavailabl e Encounter Details Date Type Department Care Team (Late st Contact Info) Description 09/28/2021 Transcribed Document [facility] [place] [address] ProviderTammi MD [address] [place] [address] Social History Tobacco Use Types [...] - Tammi ProviderMD - 09/28/2021 5:00 PM PRESIDENT & CEO Chart Check - Review Order Profile Entered On: 09/28/2021 18:12 EST Performed On: 09/28/2021 17:00 EST by JEREMY SALES RN Chart Check All Active Orders Reviewed : Yes JEREMY SALES RN - 09/28/2021 18:12 EST documented in this encounter Plan of Treatment Not on file documented as of this encounter Visit Diagnoses Not on filedocumented in this encounter
--- OUTSIDE RECORDS SUMMARY | 2025-05-17 08:00 | XMS_ITS | Encounter Summary ---
Author Organization [employer] ([place], [place], [place], [place]) Address [address] [place] [address] Care Team Providers Care Construction Estimator Name Role Phone Unavailable Primary Care Provider Unavailabl e Encounter Details Date Type Department Care Team (Late st Contact Info) Description 09/28/2021 Transcribed Document [facility] [place] [address] [place] [address] ProviderTammi MD [address] [place] [address] Social History Tobacco Use Types [...] - Tammi ProviderMD - 09/28/2021 5:00 AM LONG CHAIN BEAMER Chart Check - Review Order Profile Entered On: 09/28/2021 4:50 EST Performed On: 09/28/2021 5:00 EST by Sirisha Roland RN Chart Check Powerplans Initiated/Discontinued as Appropriate : Yes All Active Orders Reviewed : Yes Sirisha Roland RN - 09/28/2021 4:49 EST Electronically signed by Saud [facility] Conversion Sleeve Wheel Maker Cerner at 02/20/2023 6:59 AM CDT documented in this encounter Plan of Treatment Not on file documented as of this encounter Visit Diagnoses Not on filedocumented in this encounter
--- OUTSIDE RECORDS SUMMARY | 2025-05-17 08:00 | XMS_ITS | Encounter Summary ---
Author Organization [employer] ([place], [place], [place], [place]) Address [address] [place] [address] Care Team Providers Care Electric Engine Mechanic Name Role Phone Unavailable Primary Care Provider Unavailabl e Encounter Details Date Type Department Care Team (Late st Contact Info) Description 10/02/[address] [facility] [place] [address] ProviderTammi MD [address] [place] [address] Social History Tobacco Use Types [...] Tammi Lam MD - 10/02/2021 8:45 AM GRAPHIC COORDINATOR Patient Resource Center Entered On: 10/02/2021 8:47 EST Performed On: 10/02/2021 8:45 EST by Miguelina Cordero, AIRFIELD OPERATIONS SPECIALIST Patient Resource Center Provider Status : EST Other Established Provider Name : Adam Beka Patient Phone Number : [phone] Patient Insurance Type : Commercial (ex. [place] PPO, [employer] HMO) Source of Referral : [...] at ED : Other Primary Language : Icelandic Patient Resource Center Comment : appts have been made, pt contacted Follow Up Needed : No Miguelina Cordero, AIRFIELD OPERATIONS SPECIALIST - 10/02/2021 8:45 EST Electronically signed by [facility], [facility] Conversion Internal Grinder Cerner at 02/20/2023 6:59 AM CDT documented in this encounter Plan of Treatment Not on file documented as of this encounter Visit Diagnoses Not on filedocumented in this encounter
--- OUTSIDE RECORDS SUMMARY | 2025-05-17 08:00 | XMS_ITS | Encounter Summary ---
Author Organization [employer] ([place], [place], [place], [place]) Address [address] [place] [address] Care Team Providers Care Non Destructive Testing Supervisor Name Role Phone Unavailable Primary Care Provider Unavailabl e Encounter Details Date Type Department Care Team (Late st Contact Info) Description 09/29/2021 Transcribed Document [facility] [place] [address] [place] [address] ProviderTammi MD [address] [place] [address] Social History Tobacco Use Types [...] - Tammi ProviderMD - 09/29/2021 9:28 AM WEIGHMASTER LEAD Stroke/Warfarin Instructions Entered On: 09/29/2021 9:28 EST Performed On: 09/29/2021 9:28 EST by Ivett Mckeon Virtual RN Stroke/Warfarin Instructions Stroke/TIA Discharge Ins : N/A Warfarin Discharge Ins : N/A Ivett Mckeon Virtual RN - 09/29/2021 9:28 EST Electronically signed by Saud [facility] Conversion Jewel Hole Driller Cerner at 02/20/2023 7:23 AM CDT documented in this encounter Plan of Treatment Not on file documented as of this encounter Visit Diagnoses Not on filedocumented in this encounter
--- OUTSIDE RECORDS SUMMARY | 2025-05-17 08:00 | XMS_ITS | Encounter Summary ---
Author Organization [employer] ([place], [place], [place], [place]) Address [address] [place] [address] Care Team Providers Care Rn Security Name Role Phone Unavailable Primary Care Provider Unavailabl e Encounter Details Date Type Department Care Team (Late st Contact Info) Description 09/29/2021 Transcribed Document [facility] [place] Medicine [address] [place] [address] ProviderTammi MD [address] [place] [address] Social History Tobacco Use Types [...] Tammi Lam MD - 09/29/2021 9:26 AM STORE FACILITY TECHNICIAN Patient Education Materials Follows:Disease Mycobacterium Avium Complex [...] these instructions at home: Medicines ??? Take zfak-ipv-tvtmvjf and prescription medicines only as told by your health care provider. ??? Take your antibiotic medicine as told by your health care provider. Do not stop taking the antibiotic even if you start to feel better. Eating and drinking ??? Eat a healthy, well-balanced diet. Talk with your health care provider or a diet and sports nutritionist (dietitian) about what food choices are best [...] and water are not available, use hand card lacer jacquard. ??? Practice safe food preparation, especially if [...] provider. Document Revised: 04/27/2019 Document Reviewed: 11/28/2018 [employer] Patient Education ? 2020 [employer]. Pulmonary Medicine Video-Assisted Thoracic Surgery, Care After [...] cuts from surgery (incisions). Medicines ??? Take ecrh-xwz-rrxpsbp or prescription medicines only as told by [...] keep your pee pale yellow. ? Take wgpp-oij-glxjfyx or prescription medicines. ? Eat foods that [...] cannot use soap and water, use hand card lacer jacquard. ? Change your bandage as told by [...] Reviewed: 10/21/2020 Elsevier Patient Education ? 2020 [employer] documented in this encounter Plan of Treatment Not on file documented as of this encounter Visit Diagnoses Not on filedocumented in this encounter
--- OUTSIDE RECORDS SUMMARY | 2025-05-17 08:00 | XMS_ITS | Encounter Summary ---
Author Organization [employer] ([place], [place], [place], [place]) Address [address] [place] [address] Care Team Providers Care Linux Kernel Developer Name Role Phone Unavailable Primary Care Provider Unavailabl e Encounter Details Date Type Department Care Team (Late st Contact Info) Description 09/29/2021 Transcribed Document [facility] [place] [address] ProviderTammi MD [place] [address] Social History Tobacco Use Types [...] - Tammi ProviderMD - 09/29/2021 4:19 PM WALL TO WALL CARPET INSTALLER Discharge Summary, PT Entered On: 09/29/2021 16:21 [...] PHYSICAL THERAPIST NON-EXEMPT - 09/29/2021 16:19 EST Fdc Goals Ambulation LTG Grid Goal #1 Device : None Distance : 375' Assist : Independent, complete Date to Meet : 10/11/2021 EST Goal Status : Progressing, continue Comment : 02 saturation >90% Patricio Rodríguez PHYSICAL THERAPIST NON-EXEMPT - 09/29/2021 16:19 EST Electronically signed by Raheem Villavicencio Conversion Software Development Coordinator Cerner at 02/20/2023 7:03 AM CDT documented in this encounter Plan of Treatment Not on file documented as of this encounter Visit Diagnoses Not on filedocumented in this encounter
--- OUTSIDE RECORDS SUMMARY | 2025-05-17 08:00 | XMS_ITS | Encounter Summary ---
Author Organization [employer] ([place], [place], [place], [place]) Address [address] [place] [address] Care Team Providers Care Funnel Setter Name Role Phone Unavailable Primary Care Provider Unavailabl e Encounter Details Date Type Department Care Team (Late st Contact Info) Description 09/26/2021 Transcribed Document [facility] [place] [facility] [place] [address] ProviderTammi MD [address] [place] [address] Social History Tobacco Use Types [...] - Tammi ProviderMD - 09/26/2021 2:00 AM EKG TECHNICIAN Stock Mixer Details Entered On: 09/26/2021 3:13 EST Performed [...]
--- OUTSIDE RECORDS SUMMARY | 2025-05-17 08:00 | XMS_ITS | Encounter Summary ---
Author Organization [employer] ([place], [place], [place], [place]) Address [address] [place] [address] Care Team Providers Care Embedded Engineer Name Role Phone Unavailable Primary Care Provider Unavailabl e Encounter Details Date Type Department Care Team (Late st Contact Info) Description 09/29/2021 Transcribed Document [facility] [place] [facility] [place] [address] ProviderTammi MD [address] [place] [address] Social History Tobacco Use Types Packs/Day [...] Tammi Lam MD - 09/29/2021 8:35 AM FRAME AND SCRAP CRUSHER Patient: ZOHRA GUTIERREZ Age: 40 Years Sex: Female : 1980 Admit Date 09/25/2021 09:19 Discharge Date 09/29/21 Primary Care Provider TROY CALVILLO [facility] Discharge Diagnosis Pneumonia involving right lung 09/29/2021 J18.9 ICD-10-CM Procedures SN - Proc - Procedure: Thoracoscopy (09/25/21 08:08:19) Reason for Hospitalization Zohra Gutierrez is a 40-year-old female with [...] Discharge Diet: Resume usual diet as tolerated Electronically signed by Raheem Villavicencio Conversion Passenger Service Supervisor Cerner at 02/20/2023 7:08 AM CDT documented in this encounter Plan of Treatment Not on file documented as of this encounter Visit Diagnoses Not on filedocumented in this encounter
--- OUTSIDE RECORDS SUMMARY | 2025-05-17 08:00 | XMS_ITS | Encounter Summary ---
Author Organization [employer] ([place], [place], [place], [place]) Address [address] [place] [address] Care Team Providers Care Authorization Manager Name Role Phone Unavailable Primary Care Provider Unavailabl e Encounter Details Date Type Department Care Team (Late st Contact Info) Description 09/26/2021 Transcribed Document [facility] [place] Family [place] [facility] [place] [address] ProviderTammi MD [address] [place] [address] Social History Tobacco Use Types [...] - Tammi ProviderMD - 09/26/2021 9:35 AM HAY CHOPPER UM Authorization Entered On: 09/26/2021 9:35 EST Performed On: 09/26/2021 9:35 EST by VIJAY MASON Rn-Utilization Review Primary Insurance Authorization Authorization and Policy Numbers : Insurance 1 Health Plan: [facility] Policy Number: [id number] Authorization Number: [id number] Insurance Primary Name : Meme [id number] Authorization Status-Primary : Awaiting callback Authorization Number-Primary : [id number] Number of Days Authorized-Primary : 0 Day(s) Authorized Service Begin Date-Primary : 09/25/2021 EST Authorized Service End Date-Primary : 09/25/2021 EST Authorization Comments-Primary : Clinicals faxed via Marian Historical Authorization Comments-Primary : Comment 1: [place] approved per Star note for 1 day inpt (SARITHA BARNES RN-Utilization Review 09/20/2021 13:51) Comment 2: per STAR [place] inpt auth is PENDING (MARGARITA LUGO, Lubrication Supervisor 09/19/2021 12:53) VIJAY MASON Rn-Utilization Review - 09/26/2021 9:35 EST Electronically signed by Simone Villavicencio Conversion Space Systems Operations Craftsman Cerner at 02/20/2023 6:58 AM CDT documented in this encounter Plan of Treatment Not on file documented as of this encounter Visit Diagnoses Not on filedocumented in this encounter
--- OUTSIDE RECORDS SUMMARY | 2025-05-17 08:00 | XMS_ITS | Encounter Summary ---
Author Organization [facility] ([place], [place], [place], [place]) Address [address] [place] [address] Care Team Providers Care Analytical Research Chemist Name Role Phone Unavailable Primary Care Provider Unavailabl e Encounter Details Date Type Department Care Team (Late st Contact Info) Description 10/03/[address] [facility] [place] Medicine [facility] [place] [address] ProviderTammi MD [address] [place] [address] Social History Tobacco Use Types [...] Tammi Lam MD - 10/03/2021 2:56 PM FRENCH INSTRUCTOR UM Authorization Entered On: 10/03/2021 14:56 EST Performed On: 10/03/2021 14:56 EST by SARITHA BARNES RN-Utilization Review Primary Insurance Authorization Authorization and Policy Numbers : Insurance 1 Health Plan: [facility] Policy Number: [id number] Authorization Number: [id number] Insurance Primary Name : [facility] Policy Number: [id number] Authorization Status-Primary : Awaiting callback Auth/Referral Contact Name-Primary : [place] Authorization Number-Primary : [id number] Number of Days Authorized-Primary : 2 Day(s) Authorized Service Begin Date-Primary : 09/25/2021 EST Authorized Service End Date-Primary : 09/27/2021 EST Authorization Comments-Primary : [place] per avaliliradha still shows approved for 3 days Historical Authorization Comments-Primary : Comment 1: Discharge date and summary as well as continued stay clinical 09/28 - discharge faxed. (Mary Mae, Seafood Clerk 10/02/2021 14:33) Comment 2: Clinicals faxed via [employer] for 09/26-09/27. (VIJAY MASON, Rn-Utilization Review 09/27/2021 12:03) Comment 3: Continued stay authorized per fax 09/27/21 @ 0112. Total days approved x3. (Mary Mae, Seafood Clerk 09/27/2021 07:23) Comment 4: Clinicals faxed via [employer] (VIJAY MASON, Rn-Utilization Review 09/26/2021 09:35) Comment 5: [place] approved per Star note for 1 day inpt (SARITHA BARNES, RN-Utilization Review 09/20/2021 13:51) Comment 6: per STAR [place] inpt auth is PENDING (MARGARITA LUGO, Cadd Technician 09/19/2021 12:53) SARITHA BARNES RN-Utilization Review - 10/03/2021 14:56 EST Electronically signed by Raheem Villavicencio Conversion Medical Staff Director Cerner at 02/20/2023 7:18 AM CDT documented in this encounter Plan of Treatment Not on file documented as of this encounter Visit Diagnoses Not on filedocumented in this encounter
--- OUTSIDE RECORDS SUMMARY | 2025-05-17 08:00 | XMS_ITS | Encounter Summary ---
Author Organization [employer] ([place], [place], [place], [place]) Address [address] [place] [address] Care Team Providers Care Hat Blocker Name Role Phone Unavailable Primary Care Provider Unavailabl e Encounter Details Date Type Department Care Team (Late st Contact Info) Description 10/05/2021 Transcribed Document [facility] [place] Medicine [facility] [place] [address] ProviderTammi MD [address] [place] [address] Social History Tobacco Use Types [...] - Tammi ProviderMD - 10/05/2021 2:17 PM MANAGER PE UM Authorization Entered On: 10/05/2021 14:18 EST Performed On: 10/05/2021 14:17 EST by Mary Mae, Process Environmental Technician Primary Insurance Authorization Authorization and Policy Numbers : Insurance 1 Health Plan: [facility] Policy Number: [id number] Authorization Number: [id number] Insurance Primary Name : [facility] Policy Number: [id number] Authorization Status-Primary : Approved Auth/Referral Contact Name-Primary : [place] Authorization Number-Primary : [id number] Number of Days Authorized-Primary : 3 Day(s) Authorized Service Begin Date-Primary : 09/25/2021 EST Authorized Service End Date-Primary : 09/28/2021 EST Authorization Comments-Primary : Authorized per Availity - Request approved x4 days. Historical Authorization Comments-Primary : Comment 1: [place] per avalility still shows approved for 3 days (SARITHA BARNES RN-Utilization Review 10/03/2021 14:56) Comment 2: Discharge date and summary as well as continued stay clinical 09/28 - discharge faxed. (Mary Mae, Process Environmental Technician 10/02/2021 14:33) Comment 3: Clinicals faxed via [employer] for 09/26-09/27. (VIJAY MASON, Rn-Utilization Review 09/27/2021 12:03) Comment 4: Continued stay authorized per fax 09/27/21 @ 0112. Total days approved x3. (Mary Mae, Process Environmental Technician 09/27/2021 07:23) Comment 5: Clinicals faxed via [employer] (VIJAY MASON, Rn-Utilization Review 09/26/2021 09:35) Comment 6: [place] approved per Star note for 1 day inpt (SARITHA BARNES, RN-Utilization Review 09/20/2021 13:51) Comment 7: per STAR [place] inpt auth is PENDING (MARGARITA LUGO, School Cafeteria Cook 09/19/2021 12:53) Mary Mae, Process Environmental Technician - 10/05/2021 14:17 EST documented in this encounter Plan of Treatment Not on file documented as of this encounter Visit Diagnoses Not on filedocumented in this encounter
--- OUTSIDE RECORDS SUMMARY | 2025-05-17 08:00 | XMS_ITS | Encounter Summary ---
Author Organization Healthcare Address [address] [place] [address] Care Team Providers Care Patient Access Name Role Phone Brandon Gautam MD Unavailable [phone] Angel Pond MD Primary Care Provider [phone] Encounter Details Date Type Department Care Team [...] EDT Office Visit [facility] Sleep Disorder Center [address] [place] [address] Brittany Oakes APRN [address] [place] [address] 07/07/2025 9:00 AM EDT Consult Medical Office Building Urology [address] [facility], [address] [place] [address] Leonela Patterson APRN, DNP [address] [place] [address] 08/25/2025 10:00 AM EDT Office Visit [facility] [address] [place] [address] Porsche Kilgore MD [address] [place] [address] documented as of this encounter [...] documented as of this encounter Care Teams Patient Access Relationship Specialty Start Date End Date Angel Pond MD [address] [place] [address] [address] [place] [address] PCP - General 09/11/22 Brandon Gautam MD [facility] [address] [address] Referring Physician 01/04/22 documented as of this encounter
--- OUTSIDE RECORDS SUMMARY | 2025-05-17 08:00 | XMS_ITS | Encounter Summary ---
Author Organization [email or web address] ([place], [place], [place], [place]) Address [address] [place] [address] Care Team Providers Care Radar Engineering Teacher Name Role Phone Unavailable Primary Care Provider Unavailabl e Encounter Details Date Type Department Care Team (Late st Contact Info) Description 09/26/2021 Transcribed Document [facility] [place] [facility] [place] [address] ProviderTammi MD [address] [place] [address] Social History Tobacco Use Types Packs/Day Years Used Date Smoking Tobacco: Never Assessed Comments Unknown Sex and Gender Information Value Date Recorded Sex Assigned at Not on file Legal Sex Female 5:43 PM CDT Gender Identity Not on file Sexual Orientation Not on file documented as of this encounter Miscellaneous Notes * Cerner Conversion Note - Tammi ProviderMD - 09/26/2021 10:37 AM COMMERCIAL DRAFTER Pain Assessment Entered On: 09/27/2021 0:37 EST [...] version of the form. Electronically signed by Raehem Villavicencio Conversion Supply Chain Assistant Cerner at 02/22/2023 9:23 AM CDT documented in this encounter Plan of Treatment Not on file documented as of this encounter Visit Diagnoses Not on filedocumented in this encounter
--- OUTSIDE RECORDS SUMMARY | 2025-05-17 08:00 | XMS_ITS | Encounter Summary ---
Author Organization Healthcare Address [address] [place] [address] Care Team Providers Care Nutrition Partner Name Role Phone Brandon Gautam MD Unavailable [phone] Angel Pond MD Primary Care Provider [phone] Reason for Visit * Reason Comments Med Refill Encounter Details Date Type Department Care Team (Late st Contact Info) Description 05/10/2025 Refill [facility] [address] [place] [address] Porsche Kilgore MD [address] [place] [address] Rheumatoid arthritis involving multiple sites [...] encounter Miscellaneous Notes * Telephone Encounter - Paz Santillan - 05/14/2025 3:06 PM EDT Spoke to Pt and schld for first available of 08/25/2025 * Telephone Encounter - Toan Garcia PharmD - 05/10/2025 7:46 AM EDT Refill [...] 06/30/2025 2:00 PM EDT Office Visit [facility] Sleep Disorder Center [address] [place] [address] Brittany Oakes, OFFICE ADMINISTRATIVE ASSISTANT [address] [place] [address] 07/07/2025 9:00 AM EDT Consult Medical Office Building Urology [address] [facility], [address] [place] [address] Leonela Patterson, GILL, DNP [address] [place] [address] 08/25/2025 10:00 AM EDT Office Visit [facility] [address] [place] [address] Porsche Kilgore MD [address] [place] [address] documented as of this encounter Visit Diagnoses Diagnosis Rheumatoid arthritis involving multiple sites with positive rheumatoid factor ([facility])- Primary documented in this encounter Additional Health Concerns Assessment Noted Time PHQ-9 Depression Total Score: 3 01/21/20 25 11:43 AM EDT A fall risk assessment has been complete d for the patient 03/30/2025 1:41 PM EDT A Body Mass Index follow-up plan has been documented for the patient 03/30/2025 2:17 PM EDT documented as of this encounter Care Teams Nutrition Partner Relationship Specialty Start Date End Date Angel Pond MD [address] [place] [address] [address] [place] [address] PCP - General 09/11/22 Brandon Gautam MD [address] [place] [address] Referring Physician 01/04/22 documented as of this encounter
--- OUTSIDE RECORDS SUMMARY | 2025-05-17 08:00 | XMS_ITS | Clinical Summary ---
Author Organization [employer] ([place], [place], [place], [place]) Address [address] [place] [address] Care Team Providers Care Economics Lecturer Name Role Phone Unavailable Primary Care Provider [...]
--- OUTSIDE RECORDS SUMMARY | 2025-05-17 08:00 | XMS_ITS | Encounter Summary ---
Author Organization [employer] ([place], [place], [place], [place]) Address [address] [place] [address] Care Team Providers Care Process Supervisor Name Role Phone Unavailable Primary Care Provider Unavailabl e Encounter Details Date Type Department Care Team (Late st Contact Info) Description 09/27/2021 Transcribed Document [facility] [place] [address] ProviderTammi MD [address] [place] [address] Social History Tobacco Use Types Packs/Day Years Used Date Smoking Tobacco: Never Assessed Comments Unknown Sex and Gender Information Value Date Recorded Sex Assigned at Not on file Legal Sex Female 5:43 PM CDT Gender Identity Not on file Sexual Orientation Not on file documented as of this encounter Miscellaneous Notes * Cerner Conversion Note - Tammi ProviderMD - 09/27/2021 3:51 PM ROUTE DELIVERY SERVICE DRIVER Treatment Intervention, PT Entered On: 09/28/2021 14:45 [...] [facility] 09/28/2021 14:38 EST Group Home Goals Ambulation LTG Grid Goal #1 Device [...] Continued Therapy at Discharge : No LULA HANNA PTA - 09/28/2021 14:38 EST [place] PT Charges PRACTICAL NURSING TEACHER PT Therap. Exercise 15 min-PRACTICAL NURSING TEACHER : 1 LULA HANNA PTA - 09/28/2021 14:38 EST Electronically signed by Raheem Villavicencio Conversion Lumber Chain Offbearer Cerner at 02/20/2023 7:19 AM CDT documented in this encounter Plan of Treatment Not on file documented as of this encounter Visit Diagnoses Not on filedocumented in this encounter
--- OUTSIDE RECORDS SUMMARY | 2025-05-17 08:00 | XMS_ITS | Encounter Summary ---
Author Organization Healthcare Address [address] [place] [address] Care Team Providers Care Weekday Babysitter Name Role Phone Brandon Gautam MD Unavailable [phone] Angel oPnd MD Primary Care Provider [phone] Reason for Visit * Reason Onset Date Comments Records 03/22/2025 Records-bladder stimulator insertion 2019 Rcvd Records 03/22/2025 Encounter Details Date Type Department Care Team (Late st Contact Info) Description 03/22/2025 Telephone [place] [facility] [address] [place] [address] Natasha Hernandez I, RN [facility] Records (Records-bladder stimulator insertion 2019); [...] AM EDT Uploaded 10/31/20 OP Note from [facility] documented in this encounter Plan of Treatment Upcoming Encounters Date Type Department Care Team (Late st Contact Info) Description 06/30/2025 2:00 PM EDT Office Visit [facility] Sleep Disorder Center [address] [place] [address] Brittany Oakes, SKEINS YARN EXAMINER [address] [place] [address] 07/07/2025 9:00 AM EDT Consult Medical Office Building Urology [address] [facility], [address] [place] [address] Leonela Patterson APRN, DNP [address] [place] [address] 08/25/2025 10:00 AM EDT Office Visit [place] [facility] [address] [place] [address] Porsche Kilgore MD [address] [place] [address] documented as of this encounter [...] documented as of this encounter Care Teams Weekday Babysitter Relationship Specialty Start Date End Date Angel Pond MD [address] [place] [address] [address] [place] [address] PCP - General 09/11/22 Brandon Gautam MD [address] [place] [address] Referring Physician 01/04/22 documented as of this encounter
--- OUTSIDE RECORDS SUMMARY | 2025-05-17 08:00 | XMS_ITS | Encounter Summary ---
Author Organization [employer] ([place], [place], [place], [place]) Address [address] [place] [address] Care Team Providers Care Perl Software Engineer Name Role Phone Unavailable Primary Care Provider Unavailabl e Encounter Details Date Type Department Care Team (Late st Contact Info) Description 09/29/2021 Transcribed Document [facility] Family Medicine [facility] [place] [address] ProviderTammi MD [address] [place] [address] Social History Tobacco Use Types [...] Tammi Lam MD - 09/29/2021 11:40 AM TRUCK BODY [place] [address] ZOHRA GUTIERREZ :1980 Visit Time:09/25/2021 Your Visit Summary Your Care Team Admitting Physician - KEITH WADDELL MD-CAT Attending Physician - KEITH WADDELL MD-CAT Primary Care Physician - TROY CALVILLO MD-[facility] [place] Referring Physician - JACQUELINE, NOT LISTED Your [...] [facility] their phone number is [phone]. Someone will deliver a portable tank to [...] Bring discharge instructions with you. Where: [address] [facility] [address] [place] [address]- Follow Up with TROY CALVILLO MD-[facility] When Within 5 to 7 days Comments PCP follow up. Call for follow up appointment after the holiday. Bring discharge instructions with you. Where: [address] [place] [address]- Medications What How Much When Instructions Next [...] these instructions at home: Medicines ??? Take bqou-cak-enaidni and prescription medicines only as told by your health care provider. ??? Take your antibiotic medicine as told by your health care provider. Do not stop taking the antibiotic even if you start to feel better. Eating and drinking ??? Eat a healthy, well-balanced diet. Talk with your health care provider or a diet and nutrition worker (dietitian) about what food choices are best [...] and water are not available, use hand election supervisor. ??? Practice safe food preparation, especially if [...] provider. Document Revised: 04/27/2019 Document Reviewed: 11/28/2018 [employer] Patient Education ?? 2020 [employer] Video-Assisted Thoracic Surgery, Care After This [...] cuts from surgery (incisions). Medicines ??? Take cvns-osl-gweeybr or prescription medicines only as told by [...] keep your pee pale yellow. ? Take ucfd-tmc-ndgdxsy or prescription medicines. ? Eat foods that [...] cannot use soap and water, use hand election supervisor. ? Change your bandage as told by [...] provider. Document Revised: 10/21/2020 Document Reviewed: 10/21/2020 [employer] Patient Education ?? 2020 [employer] acetaminophen and oxycodone (a SEET a [...] may report side effects to FDA at 1-274-PUE-7693. What other drugs will affect acetaminophen and [...] affect acetaminophen and oxycodone, including prescription and grms-tgm-abwmxal medicines, vitamins, and herbal products. Not all [...] to ensure that the information provided by [employer]. ('[employer]') is accurate, up-to-date, and complete, but no guarantee is made to that effect. Drug information contained herein may be time sensitive. okay.com information has been compiled for use by healthcare practitioners and consumers in the [place] and therefore okay.com does not warrant that uses outside of the [place] are appropriate, unless specifically indicated otherwise. [employer] drug information does not endorse drugs, diagnose patients or recommend therapy. [employer] drug information is an informational resource designed [...] effective or appropriate for any given patient. okay.com does not assume any responsibility for any aspect of healthcare administered with the aid of information okay.com provides. The information contained herein is not intended to cover all possible uses, directions, precautions, warnings, drug interactions, allergic reactions, or adverse effects. If you have questions about the drugs you are taking, check with your doctor, nurse or pharmacist. Copyright 9391-9436 [employer]. Version: 20.03. Revision Date: 12/09/2020. Emergency Awareness [...] Assistance with quitting is available by contacting 6-905-JBZW-NOW. This is a free resource providing counseling, [...] range between ( 0.0 and 7.0 ) Glynn #: 0.50 K/uL -- Normal range between ( 0.16 and 1.00 ) Eos #: 0.29 -- Normal range between ( 0.00 and 5.00 ) Glynn %: 5.8 % -- Normal range between [...] was given the opportunity to ask questions. Patient/Technical Agronomist Name: Patient/Technical Agronomist Signature: Relationship to Patient: Clinician/Hospital Technical Agronomist Signature: Date: Electronically signed by Saud, [facility] Conversion Braille Coder Cerner at 02/20/2023 7:22 AM CDT documented in this encounter Plan of Treatment Not on file documented as of this encounter Visit Diagnoses Not on filedocumented in this encounter
--- OUTSIDE RECORDS SUMMARY | 2025-05-17 08:00 | XMS_ITS | Encounter Summary ---
Author Organization Healthcare Address [address] [place] [address] Care Team Providers Care Prosthetic Assistant Name Role Phone Brandon Gautam MD Unavailable [phone] Angel Pond MD Primary Care Provider [phone] Encounter Details Date Type Department Care Team [...] 2:00 PM EDT Office Visit [facility] Sleep Disorder Center [address] [place] [address] Brittany Oakes APRN [address] [place] [address] 07/07/2025 9:00 AM EDT Consult Medical Office Building Urology [address] [facility], [address] [place] [address] Leonela Patterson APRN, DNP [address] [place] [address] 08/25/2025 10:00 AM EDT Office Visit [facility] [address] [place] [address] Porsche Kilgore MD [address] [place] [address] documented as of this encounter [...] documented as of this encounter Care Teams Prosthetic Assistant Relationship Specialty Start Date End Date Angel Pond MD [address] [place] [address] [address] [place] [address] PCP - General 09/11/22 Brandon Gautam MD [facility] [address] [address] Referring Physician 01/04/22 documented as of this encounter
--- OUTSIDE RECORDS SUMMARY | 2025-05-17 08:00 | XMS_ITS | Encounter Summary ---
Author Organization [employer] ([place], [place], [place], [place]) Address [address] [place] [address] Care Team Providers Care Cottage Cheese Maker Name Role Phone Unavailable Primary Care Provider Unavailabl e Encounter Details Date Type Department Care Team (Late st Contact Info) Description 09/26/2021 Transcribed Document [facility] [place] Family Medicine [facility] [place] [address] ProviderTammi MD [address] [place] [address] Social History Tobacco Use Types [...] - Tammi ProviderMD - 09/26/2021 4:31 PM RAIL FILLER Initial Discharge Planning Entered On: 09/26/2021 16:34 [...] JEFFRIES Social Worker - 09/26/2021 16:31 EST Electronically signed by Raheem Villavicencio Conversion Hospice Massage Therapist Cerner at 02/20/2023 7:25 AM CDT documented in this encounter Plan of Treatment Not on file documented as of this encounter Visit Diagnoses Not on filedocumented in this encounter
--- OUTSIDE RECORDS SUMMARY | 2025-05-17 08:00 | XMS_ITS | Encounter Summary ---
Author Organization [employer] ([place], [place], [place], [place]) Address [address] [place] [address] Care Team Providers Care Supervisor Firearms Name Role Phone Unavailable Primary Care Provider Unavailabl e Encounter Details Date Type Department Care Team (Late st Contact Info) Description 10/02/2021 Transcribed Document [facility] Family Medicine On license of [facility] [place] [address] ProviderTammi MD [address] [place] [address] Social History Tobacco Use Types [...] Tammi Lam MD - 10/02/2021 2:33 PM RELIEF SALESPERSON UM Authorization Entered On: 10/02/2021 14:34 EST Performed On: 10/02/2021 14:33 EST by Mary Mae, Microsoft Systems Engineer Primary Insurance Authorization Authorization and Policy Numbers : Insurance 1 Health Plan: [facility] Policy Number: [id number] Authorization Number: [id number] Insurance Primary Name : [facility] Policy Number: [id number] Authorization Status-Primary : Awaiting callback Auth/Referral Contact Name-Primary : [place] Authorization Number-Primary : [id number] Number of Days Authorized-Primary : 2 Day(s) Authorized Service Begin Date-Primary : 09/25/2021 EST Authorized Service End Date-Primary : 09/27/2021 EST Authorization Comments-Primary : Discharge date and summary as well as continued stay clinical 09/28 - discharge faxed. Historical Authorization Comments-Primary : Comment 1: Clinicals faxed via [employer] for 09/26-09/27. (VIJAY MASON, Rn-Utilization Review 09/27/2021 12:03) Comment 2: Continued stay authorized per fax 09/27/21 @ 0112. Total days approved x3. (Mary Mae, [employer] Systems Engineer 09/27/2021 07:23) Comment 3: Clinicals faxed via [employer] (VIJAY MASON, Rn-Utilization Review 09/26/2021 09:35) Comment 4: [place] approved per [facility] note for 1 day inpt (SARITHA BARNES, RN-Utilization Review 09/20/2021 13:51) Comment 5: per [facility] [place] inpt auth is PENDING (MARGARITA LUGO, Interior Specialist 09/19/2021 12:53) Mary Mae, [employer] Systems Engineer - 10/02/2021 14:33 EST Electronically signed by Raheem Villavicencio Conversion [place] Automation Engineer Cerner at 02/20/2023 7:11 AM CDT documented in this encounter Plan of Treatment Not on file documented as of this encounter Visit Diagnoses Not on filedocumented in this encounter
--- OUTSIDE RECORDS SUMMARY | 2025-05-17 08:00 | XMS_ITS | Encounter Summary ---
Author Organization [employer] ([place], [place], [place], [place]) Address [address] [place] [address] Care Team Providers Care Fire Information Officer Name Role Phone Unavailable Primary Care Provider Unavailabl e Encounter Details Date Type Department Care Team (Late st Contact Info) Description 09/28/2021 Transcribed Document [facility] [place] [facility] [place] [address] ProviderTammi MD [address] [place] [address] Social History Tobacco Use Types [...] - Tammi ProviderMD - 09/28/2021 2:00 AM BOTTOM LIQUOR ATTENDANT Product Handler Details Entered On: 09/28/2021 2:59 EST Performed [...] Sirisha Roland RN - 09/28/2021 2:59 EST Electronically signed by Raheem Villavicencio Conversion Inspector Precision Assembly Cerner at 02/20/2023 7:19 AM CDT documented in this encounter Plan of Treatment Not on file documented as of this encounter Visit Diagnoses Not on filedocumented in this encounter
--- OUTSIDE RECORDS SUMMARY | 2025-05-17 08:00 | XMS_ITS | Encounter Summary ---
Author Organization [employer] ([place], [place], [place], [place]) Address [address] [place] [address] Care Team Providers Care Marker Machine Attendant Name Role Phone Unavailable Primary Care Provider Unavailabl e Encounter Details Date Type Department Care Team (Late st Contact Info) Description 09/29/2021 Transcribed Document [facility] Family Medicine [address] [place] [address] ProviderTammi MD [address] [place] [address] Social History Tobacco Use Types [...] - Tammi ProviderMD - 09/29/2021 11:54 AM WAREHOUSE UNLOADER Nursing Discharge Summary Entered On: 09/29/2021 11:54 [...] 09/29/2021 11:54 EST Electronically signed by Saud [facility] Conversion Gaming Associate Cerner at 02/20/2023 7:25 AM CDT documented in this encounter Plan of Treatment Not on file documented as of this encounter Visit Diagnoses Not on filedocumented in this encounter
--- OUTSIDE RECORDS SUMMARY | 2025-05-17 08:00 | XMS_ITS | Encounter Summary ---
Author Organization [employer] ([place], [place], [place], [place]) Address [address] [place] [address] Care Team Providers Care Merchandise Distributor Name Role Phone Unavailable Primary Care Provider Unavailabl e Encounter Details Date Type Department Care Team (Late st Contact Info) Description 09/28/2021 Transcribed Document [facility] [place] Family Medicine [facility] [place] [address] ProviderTammi MD [address] [place] [address] Social History Tobacco Use Types [...] Tammi Lam MD - 09/28/2021 7:50 AM LOGISTICS ASSOCIATE Patient: ZOHRA GUTIERREZ Age: 40 years Sex: [...] Radiology results Radiology Results (Last 48 hours) [id number] -- 09/25/2021 09:19 CT Chest WO (09/27/2021 [...] tomorrow Path pending Electronically signed by Saud, [facility] Conversion Assistant Nurse Manager Cerner at 02/20/2023 7:23 AM CDT documented in this encounter Plan of Treatment Not on file documented as of this encounter Visit Diagnoses Not on filedocumented in this encounter
--- OUTSIDE RECORDS SUMMARY | 2025-05-17 08:00 | XMS_ITS | Encounter Summary ---
Author Organization [email or web address] ([place], [place], [place], [place]) Address [address] [place] [address] Care Team Providers Care Clinical Tech Name Role Phone Unavailable Primary Care Provider Unavailabl e Encounter Details Date Type Department Care Team (Late st Contact Info) Description 10/02/2021 Transcribed Document [facility] [place] [facility] [place] [address] ProviderTammi MD [address] [place] [address] Social History Tobacco Use Types [...] Tammi Lam MD - 10/02/2021 12:43 PM SUPERVISOR SHIPPING Please Modify Before Signing CLINICAL DOCUMENTATION CLARIFICATION [...] 09/25: orders- Transfer from Med/Surg to Telemetry CDS/Glass Selector Signature: __ELIUD Plummer, RN, CDS Phone #: __[phone] Acute Respiratory Failure: ABG pH < 7.35 or > 7.45; Decreased oxygen saturation (<90% room air or < 95% on oxygen); PCO2 > 50 mm Hg; PO2 < 60 mm Hg; Labored or rapid respirations ARDS: Dx Criteria [[place] ARDS]: Respiratory symptoms within one week of a known clinical insult (e.g. shock, infection, surgery, trauma) Bilateral opacities in CXR/Chest CT not due to CHF or fluid This is a permanent part of the Medical Record Q53 2020 [facility] Reviewed: 02/2021 Electronically signed by Raheem Villavicencio Conversion Performance Improvement Director Cerner at 02/20/2023 7:13 AM CDT documented in this encounter Plan of Treatment Not on file documented as of this encounter Visit Diagnoses Not on filedocumented in this encounter
--- OUTSIDE RECORDS SUMMARY | 2025-05-17 08:00 | XMS_ITS | Encounter Summary ---
Author Organization [employer] ([place], [place], [place], [place]) Address [address] [place] [address] Care Team Providers Care Wastewater Treatment Plant Supervisor Name Role Phone Unavailable Primary Care Provider Unavailabl e Encounter Details Date Type Department Care Team (Late st Contact Info) Description 09/27/2021 Transcribed Document [facility] Family Medicine [facility] [place] [address] ProviderTammi MD [address] [place] [address] Social History Tobacco Use Types [...] - Tammi ProviderMD - 09/27/2021 12:03 PM LEAD JANITOR UM Authorization Entered On: 09/27/2021 12:03 EST Performed On: 09/27/2021 12:03 EST by VIJAY MASON Rn-Utilization Review Primary Insurance Authorization Authorization and Policy Numbers : Insurance 1 Health Plan: [facility] Policy Number: [id number] Authorization Number: [id number] Insurance Primary Name : [facility] Policy Number: [id number] Authorization Status-Primary : Awaiting callback Authorization Number-Primary : [id number] Number of Days Authorized-Primary : 2 Day(s) Authorized Service Begin Date-Primary : 09/25/2021 EST Authorized Service End Date-Primary : 09/27/2021 EST Authorization Comments-Primary : Clinicals faxed via [employer] for 09/26-09/27. Historical Authorization Comments-Primary : Comment 1: Continued stay authorized per fax 09/27/21 @ 0112. Total days approved x3. (Mary Mae, Fireworks Display Specialist 09/27/2021 07:23) Comment 2: Clinicals faxed via [employer] (VIJAY MASON, Rn-Utilization Review 09/26/2021 09:35) Comment 3: [place] approved per Star note for 1 day inpt (SARITHA BARNES, [place]ULAY-Utilization Review 09/20/2021 13:51) Comment 4: per STAR [place] inpt auth is PENDING (MARGARITA LUGO, Parachute Marker 09/19/2021 12:53) VIJAY MASON, Rn-Utilization Review - 09/27/2021 12:03 EST documented in this encounter Plan of Treatment Not on file documented as of this encounter Visit Diagnoses Not on filedocumented in this encounter
--- OUTSIDE RECORDS SUMMARY | 2025-05-17 08:00 | XMS_ITS | Data Portability ---
Author Organization [employer] - Terrance gyoal MD, Main Office Address [address] [place] [address], [facility] [address] [place] [address] Assessment No assessment recorded. Plan of Treatment Reminders Order Date Submit Date Provider Last Modified By Organization Details Last Modified Time Details Appointments None record ed. Lab None record ed. Referral None record ed. Procedures None record ed. Surgeries None record ed. Imaging None record ed. Medication Orders None record ed. Patient TargetsNo targets recorded. Patient Instructions Encounter Date Encounter Id Patient Instructions Last Modified By Organization Details Last Modified Time 04/24/2021 [id number] Numbness and Tingling: Care Instructions [email or web address] Not available 04/24/2021 11:15:51 Reason for Referral None Reported. Results Created Date Observation Date Name Description Value Unit Range Abnormal Flag Note LastModifiedBy Organization Detail LastModifiedTime 04/24/20 21 04/24/2021 elect romyo gram + nerve condu ction study No observ ation record ed. BARCODE Not Available 2020 11:24:32 Result Notes None recorded. Problems No Known Problems Procedures Surgical History Date Name Laterality Status Provider Name and Address Organization Details Recorded Time 04/24/2021 NCV/EMG completed Colin Gant MD 04/24/2021 11:10:35 Imaging Results None recorded. Procedure Notes None recorded. Medical Equipment None Reported. Allergies No known drug allergies Medications Name Sig Start Date Stop Date Status Note LastModified by Organization Details LastModified Time celecoxib 200 mg capsule TAKE 1 CAPSULE BY MOUTH TWICE DAILY NEEDED active Not Available Not Available No t Available cyclobenzapr ine 10 mg tablet TAKE 1 TABLET BY MOUTH EVERY 8 HOURS AT BEDTIME NEEDED FOR 14 DAYS active Not Available Not Available No t Available nystatin 100,000 unit/mL oral suspension SWISH 4 6ML FOUR TIMES A DAY FOR 10 DAYS SWISH RETAIN IN MOUTH LONG POSSIBLE THEN SPIT EVERY 6 HOURS FOR 10 DAYS active Not Available Not Available No t Available gabapentin 600 mg tablet TAKE 1 TABLET BY MOUTH THREE TIMES DAILY active Not Available Not Available Not Available clindamycin HCl 300 mg capsule TAKE 2 CAPSULES BY MOUTH EVERY 8 HOURS FOR 10 DAYS active Not Available Not Available No t Available azithromycin 250 mg tablet TAKE 2 TABLETS BY MOUTH ON DAY 1 AND THEN TAKE 1 TABLET BY MOUTH ONCE A DAY ON DAY 2 THROUGH DAY 5 active Not Available Not Available No t Available hydrocodone 5 mg-acetamino phen 325 mg tablet TAKE 1 TABLET BY MOUTH EVERY 4 TO 6 HOURS NEEDED active Not Available Not Available No t Available prednisone 20 mg tablet TAKE 2 TABLETS BY MOUTH ONCE DAILY active Not Available Not Available No t Available prednisone 5 mg tablet TAKE 1 TABLET BY MOUTH ONCE DAILY active Not Available Not Available No t Available sulfasalazin e 500 mg tablet,delay ed release TAKE 2 TABLETS BY MOUTH TWICE DAILY AFTER A MEAL active Not Available Not Available No t Available prednisone 10 mg tablets in a dose pack TAKE BY MOUTH DIRECTED ON INSIDE OF PACKAGE FOR 6 DAYS active Not Available Not Available No t Available gabapentin 800 mg tablet TAKE 1 TABLET BY MOUTH THREE TIMES DAILY active Not Available Not Available Not Available dicyclomine 20 mg tablet TAKE 1 TABLET BY MOUTH THREE TIMES DAILY FOR 30 DAYS active Not Available Not Available Not Available buspirone 10 mg tablet TAKE 1 TABLET BY MOUTH TWICE DAILY active Not Available Not Available No t Available clotrimazole -betamethaso ne 1 %-0.05 % topical cream APPLY CREAM TOPICALLY TO AFFECTED AREA TWICE DAILY active Not Available Not Available No t Available promethazine 25 mg tablet TAKE 1 TABLET BY MOUTH EVERY 6 HOURS NEEDED FOR 7 DAYS active Not Available Not Available No t Available sertraline 25 mg tablet TAKE 1 TABLET BY MOUTH ONCE DAILY FOR 30 DAYS active Not Available Not Available No t Available hydroxychlor oquine 200 mg tablet TAKE 1 TABLET BY MOUTH ONCE DAILY active Not Available Not Available No t Available prednisone 5 mg tablets in a dose pack active Not Available Not Available Not Available levofloxacin 750 mg tablet TAKE 1 TABLET BY MOUTH ONCE DAILY active Not Available Not Available No t Available albuterol sulfate HFA 90 mcg/actuatio n aerosol inhaler INHALE 2 PUFF BY MOUTH EVERY 6 HOURS NEEDED FOR SHORTNESS OF BREATH OR WHEEZING active Not Available Not Available Not Available ondansetron 4 mg disintegrati ng tablet DISSOLVE 1 TABLET IN MOUTH THREE TIMES DAILY NEEDED FOR NAUSEA active Not Available Not Available N ot Available cefdinir 300 mg capsule TAKE 1 CAPSULE BY MOUTH TWICE DAILY active Not Available Not Available No t Available fluticasone propionate 50 mcg/actuatio n nasal spray,suspen hiren USE 1 SPRAY(S) IN EACH NOSTRIL ONCE DAILY active Not Available Not Available N ot Available amoxicillin 875 mg-potassium clavulanate 125 mg tablet TAKE 1 TABLET BY MOUTH EVERY 12 HOURS FOR 10 DAYS active Not Available Not Available Not Available mirtazapine 7.5 mg tablet TAKE 2 TABLETS BY MOUTH ONCE DAILY AT BEDTIME FOR 30 DAYS active Not Available Not Available No t Available duloxetine 60 mg capsule,george yed release TAKE 1 CAPSULE BY MOUTH TWICE DAILY active Not Available Not Available No t Available hydrochlorot hiazide 12.5 mg tablet TAKE 1 TABLET BY MOUTH ONCE DAILY IN THE MORNING FOR 30 DAYS active Not Available Not Available Not Available Incruse Ellipta 62.5 mcg/actuatio n powder for inhalation INHALE 1 PUFF BY MOUTH ONCE DAILY FOR 30 DAYS active Not Available Not Available No t Available Plenvu 140 gram-9 gram-5.2 gram powder packs TAKE DIRECTED PER INSTRUCTION S GIVEN TO YOU FOR YOUR COLONOSCOPY active Not Available Not Available Not Available Vitals None Recorded Social History None recorded. Functional Status None recorded. Mental Status None recorded. Family History Nothing Reported. Medical History No medical history recorded. Gynecological HistoryNo gynecological history recorded. Obstetrics History GPAL:G 0 P 0 0 0 0 Past Encounters Encounter ID Performer Location Encounter Start Date Encounter Closed Date Diagnosis/Indication Diagnosis SNOMED-CT Code Diagnosis ICD10 Code Diagnosis Note [id number] Terrance Gant MD Main Office [address] [facility], [facility] [address] [place] [address] 04/24/2021 09:46:13 04/24/2021 11:11:44 Paresthesia 85266656 R20.2 Health Concerns Section Related Observation LastModified by Organization Detai ls LastModified Time None Recorded Concern Status LastModified by Organization Details LastModified Time None Recorded Advance Directives Directive None Recorded Payers Insurance Date Sequence Insurance Name Policy Number Policy Daly Covered Member ID Daly Member ID Guarantor Name 04/24/2021 1 [place] [id number] Arun Gutierrez [id number] Nancy Gutierrez OBGyn Episode No OBEpisode recorded.
--- OUTSIDE RECORDS SUMMARY | 2025-05-17 08:00 | XMS_ITS | Clinical Summary ---
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 use of immunosuppressive drug 01/24/2022 Hx [...] Type Department Care Team Description 05/10/2025 Refill [facility] Medicine Specialties [address] [place] [address] Porsche Kilgore MD Rheumatoid arthritis involving multiple sites with positive rheumatoid factor ([facility]/HCC) (Primary Dx) 04/12/2025 Refill [facility] Medicine Specialties [address] [place] [address] Porsche Kilgore MD 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) (Primary Dx) 04/05/2025 Travel 03/30/2025 2:00 PM EDT Office Visit [facility] Sleep Disorder Center [address] [place] [address] Brittany Oakes APRN [place] (obstructive sleep apnea) (Primary Dx) 03/30/2025 Travel 03/22/2025 Telephone [facility] Urology [address] [place] [address] Natasha Hernandez I, RN Records (Records-bladder stimulator [...] SPECIALTY [facility] Sleep Disorder Center [address] [place] [address] Brittany Oakes APRN [address] [place] [address] 07/07/2025 9:00 AM EDT Consult Medical Office Building Urology [address], [address] [place] [address] Leonela Patterson APRN, DNP [address] [place] [address] 08/25/2025 10:00 AM EDT [facility] [address] [place] [address] Porsche Kilgore MD [address] [place] [address] Health Maintenance Due Date Last Done Comments [facility]-HIV Screening 1980 [facility]-/Child/Adol SDOH Screenings 1980 [facility]-Varicella Vaccines (1 of [...] Discontinued 01/02/2022 [facility]-Hepatitis C Screening Completed 01/11/2022 [id number] Vaccine Completed 08/05/2024, 08/31/2022, 10/13/2021, Additional history [...] this topic Medical Devices Implanted Type Area Filling Station Laborer Device Identifier Shelf Expiration Date Model / Serial / Lot Surescan Interstim 2 Stimulator- Implanted:Qty: 1 on 10/31/2020 Implant Right: Hip Medtronic 3058 / [id number] / Procedures Procedure Name Priority Date/Time Associated Diagnosis Comments HEPATITIS C ANTIBODY W/REFLEX TO HCV QUANT PCR STAT 01/11/2022 4:41 PM EST HEMOGLOBIN A1C Routine 01/02/2022 9:40 AM EST from Last 3 Months or Most Recently Relevant to Health Maintenance Results * Hepatitis C Antibody (01/11/2022 4:41 PM EST) Hepatitis C Antibody Negative Negative 01/11/2022 6:40 PM EST [facility] Blood Venous blood specimen / Unknown Venipuncture / Unknown 01/11/2022 4:41 PM EST 01/11/2022 5:02 PM EST us Casey Raygoza MD LAB BLOOD ORDERABLES Final Res ult Performing Organization Address City/[facility]/ZIP Co de Phone Number [facility] [address] [place] [address] * (ABNORMAL) Hemoglobin A1c (01/02/2022 9:40 AM EST) Hemoglobin A1c 5.8(H) <5.7 % 01/02/2022 10:55 AM EST [facility] Blood Venous blood specimen / Unknown Venipuncture / Unknown 01/02/2022 9:40 AM EST 01/02/2022 10:19 AM EST Aleja Bowman APRN LAB BLOOD ORDERABLES Final Res ult Performing Organization Address City/[facility] Co de Phone Number [facility]CARE [facility] [address] [place] [address] from Last 3 Months or Most Recently Relevant to Health Maintenance Insurance ANTH Advance Directives * Full Code (Latest Code Status on File) Date Activated Date Inactivated Comments 01/01/2022 11:58 PM 01/11/2022 8:21 PM Question Answer Comments Patient has decision-making capacity? Yes Care Teams Inventory Accountant Relationship Specialty Start Date End Date Angel Pond MD [address] [place] [address] [address] [place] [address] PCP - General 09/11/22 Brandon Gautam MD [address] [place] [address] Referring Physician 01/04/22
--- OUTSIDE RECORDS SUMMARY | 2025-05-17 08:00 | XMS_ITS | Encounter Summary ---
Author Organization [employer] ([place], [place], [place], [place]) Address [address] [place] [address] Care Team Providers Care Automatic Print Developer Name Role Phone Unavailable Primary Care Provider Unavailabl e Encounter Details Date Type Department Care Team (Late st Contact Info) Description 09/27/2021 Transcribed Document [facility] [place] Medicine [place] [address] ProviderTammi MD [address] [place] [address] Social History Tobacco Use Types Packs/Day Years Used Date Smoking Tobacco: Never Assessed Comments Unknown Sex and Gender Information Value Date Recorded Sex Assigned at Not on file Legal Sex Female 5:43 PM CDT Gender Identity Not on file Sexual Orientation Not on file documented as of this encounter Miscellaneous Notes * Cerner Conversion Note - Tammi ProviderMD - 09/27/2021 5:05 PM DERRICK WORKER On Going Discharge Planning Entered On: 09/27/2021 [...] CM will continue to follow. ROBERTO JEFFRIES, Gamer - 09/27/2021 17:05 EST Electronically signed by Saud [facility] Conversion Veneer Taper Cerner at 02/20/2023 7:25 AM CDT documented in this encounter Plan of Treatment Not on file documented as of this encounter Visit Diagnoses Not on filedocumented in this encounter
--- OUTSIDE RECORDS SUMMARY | 2025-05-17 08:00 | XMS_ITS | Encounter Summary ---
Author Organization [employer] ([place], [place], [place], [place]) Address [address] [place] [address] Care Team Providers Care Client Program Manager Name Role Phone Unavailable Primary Care Provider Unavailabl e Encounter Details Date Type Department Care Team (Late st Contact Info) Description 09/26/2021 Transcribed Document [facility] [place] Family Medicine [facility] [place] [address] ProviderTammi MD [address] [place] [address] Social History Tobacco Use Types [...] Tammi Lam MD - 09/26/2021 10:29 AM MULTI DISCIPLINED LANGUAGE ANALYST Patient: ZOHRA GUTIERREZ Age: 40 years [...] Radiology results Radiology Results (Last 48 hours) [id number] -- 09/25/2021 09:19 CR Chest 1 Vw [...] and dictated by Dr. Galo Álvarez.Transcribed by Apirl Gudino PA-C. Impression and Plan 09/26/21 POD [...] daily Electronically signed by Raheem Villavicencio Conversion Systems Checkout Mechanic Cerner at 02/20/2023 7:18 AM CDT documented in this encounter Plan of Treatment Not on file documented as of this encounter Visit Diagnoses Not on filedocumented in this encounter
--- OUTSIDE RECORDS SUMMARY | 2025-05-17 08:00 | XMS_ITS | Encounter Summary ---
Author Organization [employer] ([place], [place], [place], [place]) Address [address] [place] [address] Care Team Providers Care Pony Rougher Name Role Phone Unavailable Primary Care Provider Unavailabl e Encounter Details Date Type Department Care Team (Late st Contact Info) Description 09/26/2021 Transcribed Document [facility] [facility] [place] [address] ProviderTammi MD [address] [place] [address] Social History Tobacco Use Types [...] - Historical ProviderMD - 09/26/2021 10:25 AM CONTRACT AGENT Attempt to Treat, PT Entered On: 09/26/2021 10:34 EST Performed On: 09/26/2021 10:25 EST by MARTHA BO PT Attempt to Treat Unable to Treat Due To : Patient Unavailable Inability to Treat Comment : pt is off the floor for CT scan per Nsg. Will check back as time permits Notification : Discussed with NSG MARTHA BO, PT - 09/26/2021 10:33 EST documented in this encounter Plan of Treatment Not on file documented as of this encounter Visit Diagnoses Not on filedocumented in this encounter
--- OUTSIDE RECORDS SUMMARY | 2025-05-17 08:00 | XMS_ITS | Encounter Summary ---
Author Organization [employer] ([place], [place], [place], [place]) Address [address] [place] [address] Care Team Providers Care Talent Analyst Name Role Phone Unavailable Primary Care Provider Unavailabl e Encounter Details Date Type Department Care Team (Late st Contact Info) Description 09/26/2021 Transcribed Document [facility] Family Medicine [facility] [place] [address] ProviderTammi MD [address] [place] [address] Social History Tobacco Use [...] - Tammi ProviderMD - 09/26/2021 5:00 AM RN SHIFT MGR Chart Check - Review Order Profile Entered On: 09/26/2021 4:10 EST Performed On: 09/26/2021 5:00 EST by Sirisha Roland RN Chart Check Powerplans Initiated/Discontinued as Appropriate : Yes All Active Orders Reviewed : Yes Sirisha Roland RN - 09/26/2021 4:10 EST Electronically signed by Saud [facility] Conversion Station Air Traffic Control Specialist Cerner at 02/20/2023 7:16 AM CDT documented in this encounter Plan of Treatment Not on file documented as of this encounter Visit Diagnoses Not on filedocumented in this encounter
--- OUTSIDE RECORDS SUMMARY | 2025-05-17 08:00 | XMS_ITS | Encounter Summary ---
Author Organization [employer] ([place], [place], [place], [place]) Address [address] [place] [address] Care Team Providers Care Software Support Representative Name Role Phone Unavailable Primary Care Provider Unavailabl e Encounter Details Date Type Department Care Team (Late st Contact Info) Description 09/27/2021 Transcribed Document [facility] [place] Family Medicine [facility] [place] [address] ProviderTammi MD [address] [place] [address] Social History Tobacco Use Types [...] - Tammi ProviderMD - 09/27/2021 2:00 AM OPTICAL LABORATORY MECHANIC Lip Reading Teacher Details Entered On: 09/27/2021 2:53 EST Performed [...] Sirisha Roland RN - 09/27/2021 2:52 EST Electronically signed by Raheem Villavicencio Conversion Environmental Health And Safety Leader Cerner at 02/20/2023 7:24 AM CDT documented in this encounter Plan of Treatment Not on file documented as of this encounter Visit Diagnoses Not on filedocumented in this encounter
--- OUTSIDE RECORDS SUMMARY | 2025-05-17 08:00 | XMS_ITS | Encounter Summary ---
Author Organization [employer] ([place], [place], [place], [place]) Address [address] [place] [address] Care Team Providers Care Lime Mixer Tender Name Role Phone Unavailable Primary Care Provider Unavailabl e Encounter Details Date Type Department Care Team (Late st Contact Info) Description 09/27/2021 Transcribed Document [facility] [place] Family Medicine [facility] [place] [address] ProviderTammi MD [address] [place] [address] Social History Tobacco Use Types Packs/Day Years Used Date Smoking Tobacco: Never Assessed Comments Unknown Sex and Gender Information Value Date Recorded Sex Assigned at Not on file Legal Sex Female 5:43 PM CDT Gender Identity Not on file Sexual Orientation Not on file documented as of this encounter Miscellaneous Notes * Cerner Conversion Note - Tammi ProviderMD - 09/27/2021 3:23 PM SENIOR SQL DEVELOPER Pain Assessment Entered On: 09/28/2021 7:22 EST [...] form. Electronically signed by Raheem Villavicencio Conversion Operations Research Analyst Marian at 02/22/2023 9:24 AM CDT documented in this encounter Plan of Treatment Not on file documented as of this encounter Visit Diagnoses Not on filedocumented in this encounter
--- OUTSIDE RECORDS SUMMARY | 2025-05-17 08:00 | XMS_ITS | Encounter Summary ---
Author Organization [employer] ([place], [place], [place], [place]) Address [address] [place] [address] Care Team Providers Care Customer Service Representative Teller Name Role Phone Unavailable Primary Care Provider Unavailabl e Encounter Details Date Type Department Care Team (Late st Contact Info) Description 09/27/2021 Transcribed Document [facility] [place] Family Medicine [facility] [place] [address] ProviderTammi MD [address] [place] [address] Social History Tobacco Use Types [...] Tammi Lam MD - 09/27/2021 9:19 AM CRUSHER MACHINE OPERATOR Patient: ZOHRA GUTIERREZ Age: 40 years [...] Radiology results Radiology Results (Last 48 hours) [id number] -- 09/25/2021 09:19 CR Chest 1 Vw [...] 40 mg IV, KCl 20 mEq daily Electronically signed by Raheem Villavicencio Conversion Butcher Or Smallgoods Maker Cerner at 02/20/2023 7:18 AM CDT documented in this encounter Plan of Treatment Not on file documented as of this encounter Visit Diagnoses Not on filedocumented in this encounter
--- OUTSIDE RECORDS SUMMARY | 2025-05-17 08:01 | XMS_ITS | Encounter Summary ---
Author Organization [employer] ([place], [place], [place], [place]) Address [address] [place] [address] Care Team Providers Care Java Core Developer Name Role Phone Unavailable Primary Care Provider Unavailabl e Encounter Details Date Type Department Care Team (Late st Contact Info) Description 09/18/2021 Transcribed Document [facility] [place] [facility] [place] [address] ProviderTammi MD [address] [place] [address] Social History Tobacco Use Types [...] - Tammi ProviderMD - 09/18/2021 10:01 AM HAT DESIGNER Consult Phone Call Documentation Entered On: 09/25/2021 16:32 EST Performed On: 09/18/2021 10:01 EST by Silvano Gonzalez, [facility] Phone Call for Consults Date and Time Call Returned : 09/25/2021 16:32 EST Silvano Gonzalez [facility] - 09/25/2021 16:32 EST documented in this encounter Plan of Treatment Not on file documented as of this encounter Visit Diagnoses Not on filedocumented in this encounter
--- OUTSIDE RECORDS SUMMARY | 2025-05-17 08:01 | XMS_ITS | Encounter Summary ---
Author Organization [employer] ([place], [place], [place], [place]) Address [address] [place] [address] Care Team Providers Care Lumber Scaler Name Role Phone Unavailable Primary Care Provider Unavailabl e Encounter Details Date Type Department Care Team (Late st Contact Info) Description 09/25/2021 Transcribed Document [facility] [place] Family Medicine [facility] [place] [address] ProviderTammi MD [facility] [address] Social History Tobacco Use Types [...] - Tammi ProviderMD - 09/25/2021 8:44 AM BEHAVIOR SUPPORT SPECIALIST [facility] Main OR PACU Summary Primary Physician: KEITH WADDELL MD-CAT Finalized Date/Time: 09/25/21 16:17:06 Pt. Name: ZOHRA CHANDLER D.O.B./Sex: 1980 Female Med Rec #: [id number] Physician: KEITH WADDELL MD-CAT Financial #: [id number] Pt. Type: I Room/Bed: 306/1 Admit/Disch: 09/25/21 09:19:00 - Institution: [facility] Main OR PACU I Case Times Entry 1 In PACU I 09/25/21 09:35:00 Ready for PACU 09/25/21 10:35:00 Discharge Discharge from PACU 09/25/21 16:04:00 I Last Modified By: Kaitlyn Atkinson Rn 09/25/21 16:10:47 [facility] Main OR PACU Acuity Entry 1 Start Time 09/25/21 10:35:00 Stop Time 09/25/21 16:04:00 Acuity Level [facility] PACU Acuity I Last Modified By: Kaitlyn Atkinson Rn 09/25/21 16:17:03 Finalized By: Kaitlyn Atkinson, Rn Document Signatures Signed By: Kaitlyn Atkinson Rn 09/25/21 16:17 Electronically signed by Saud [facility] Conversion Injection Maintenance Technician Cerner at 02/20/2023 7:07 AM CDT documented in this encounter Plan of Treatment Not on file documented as of this encounter Visit Diagnoses Not on filedocumented in this encounter
--- OUTSIDE RECORDS SUMMARY | 2025-05-17 08:01 | XMS_ITS | Encounter Summary ---
Author Organization [employer] ([place], [place], [place], [place]) Address [address] [place] [address] Care Team Providers Care Microbiological Lab Technician Name Role Phone Unavailable Primary Care Provider Unavailabl e Encounter Details Date Type Department Care Team (Late st Contact Info) Description 09/20/2021 Transcribed Document [facility] [place] [address] ProviderTammi MD [address] [place] [address] Social History Tobacco Use Types [...] - Tammi ProviderMD - 09/20/2021 1:51 PM JOB PRINTER UM Authorization Entered On: 09/20/2021 13:53 EST Performed On: 09/20/2021 13:51 EST by SARITHA BARNES RN-Utilization Review Primary Insurance Authorization Authorization and Policy Numbers : Insurance 1 Health Plan: [facility] Policy Number: [id number] Authorization Number: [id number] Insurance Primary Name : Meme [id number] Authorization Status-Primary : Admit approved Authorization Number-Primary : [id number] Number of Days Authorized-Primary : 0 Day(s) Authorized Service Begin Date-Primary : 09/21/2021 EST Authorized Service End Date-Primary : 09/21/2021 EST Authorization Comments-Primary : [place] approved per Star note for 1 day inpt Historical Authorization Comments-Primary : Comment 1: per ST[facility] [place] inpt auth is PENDING (MARGARITA LUGO, Planning Aide 09/19/2021 12:53) SARITHA BARNES RN-Utilization Review - 09/20/2021 13:51 EST Electronically signed by Saud, [facility] Conversion Optical Glass Sawyer Cerner at 02/20/2023 7:01 AM CDT documented in this encounter Plan of Treatment Not on file documented as of this encounter Visit Diagnoses Not on filedocumented in this encounter
--- OUTSIDE RECORDS SUMMARY | 2025-05-17 08:01 | XMS_ITS | Encounter Summary ---
Author Organization [employer] ([place], [place], [place], [place]) Address [address] [place] [address] Care Team Providers Care Genetic Engineer Name Role Phone Unavailable Primary Care Provider Unavailabl e Encounter Details Date Type Department Care Team (Late st Contact Info) Description 09/25/2021 Transcribed Document [facility] [place] Family Medicine [facility] [place] [address] ProviderTammi MD [address] [place] [address] Social History Tobacco Use Types Packs/Day Years Used Date Smoking Tobacco: Never Assessed Comments Unknown Sex and Gender Information Value Date Recorded Sex Assigned at Not on file Legal Sex Female 5:43 PM CDT Gender Identity Not on file Sexual Orientation Not on file documented as of this encounter Miscellaneous Notes * Cerner Conversion Note - Tammi ProviderMD - 09/25/2021 9:22 AM REMOTE SENSING SCIENTIST Evaluation, Physical Therapy Entered On: 09/27/2021 15:50 [...] of Illness, Pain Rehabilitation Potential : Good DONALDO WHITTEN, PT - 09/27/2021 15:41 EST Plan [...] DONALDO WHITTEN, PT - 09/27/2021 15:41 EST Dry Drug Worker Goals Ambulation LTG Grid Goal #1 Device [...] 09/27/2021 15:41 EST Electronically signed by Saud [facility] Conversion Gummed Tape Press Operator Cerner at 02/20/2023 7:12 AM CDT documented in this encounter Plan of Treatment Not on file documented as of this encounter Visit Diagnoses Not on filedocumented in this encounter
--- OUTSIDE RECORDS SUMMARY | 2025-05-17 08:01 | XMS_ITS | Encounter Summary ---
Author Organization [employer] ([place], [place], [place], [place]) Address [address] [place] [address] Care Team Providers Care Area Cleaner Name Role Phone Unavailable Primary Care Provider Unavailabl e Encounter Details Date Type Department Care Team (Late st Contact Info) Description 09/25/2021 Transcribed Document [facility] [place] Family Medicine [facility] [place] [address] ProviderTammi MD [address] [place] [address] Social History Tobacco Use Types [...] Tammi Lam MD - 09/25/2021 9:31 AM TRANSPORTATION OFFICER DATE OF PROCEDURE: 09/25/2021 SURGEON: Carmen Dawkins MD PREOPERATIVE DIAGNOSIS: Recurrent pneumonia. POSTOPERATIVE DIAGNOSIS: Recurrent pneumonia. PROCEDURE PERFORMED: Right video-assisted thoracoscopy, right middle lobe lung wedge resection. ANESTHESIA: General endotracheal anesthesia. GOLF COURSE MECHANIC: Terrance Mcghee, physician assistant professor in family studies. INDICATION FOR PROCEDURE: Nancy Gutierrez is a [...] the incision in the midclavicular line, a 32-Pakistani straight chest tube was placed and was directed towards the apex of the chest cavity. It was then subsequently secured to the skin. All the ports were then removed. All the access sites were then closed using 2-0 Vicryl and skin was approximated in subcuticular stitches. The lung was then reinflated. The patient was transferred to the recovery in stable condition. /[id number] MD NAHOMY Silva/BOGDAN / NAHOMY / MODL /[id number] CC: MD Liat Silva MD Stephen Moses, MD Electronically signed by Saud [facility] Conversion Hydraulic Jack Mechanic Cerner at 02/20/2023 7:13 AM CDT documented in this encounter Plan of Treatment Not on file documented as of this encounter Visit Diagnoses Not on filedocumented in this encounter
--- OUTSIDE RECORDS SUMMARY | 2025-05-17 08:01 | XMS_ITS | Encounter Summary ---
Author Organization [employer] ([place], [place], [place], [place]) Address [address] [place] [address] Care Team Providers Care Bill Adjuster Name Role Phone Unavailable Primary Care Provider Unavailabl e Encounter Details Date Type Department Care Team (Late st Contact Info) Description 09/25/2021 Transcribed Document [facility] [place] [facility] [place] [address] ProviderTammi MD [address] [place] [address] Social History Tobacco Use Types [...] - Tammi ProviderMD - 09/25/2021 4:15 PM AVIAN KEEPER Meds to Bed Enrollment Entered On: 09/26/2021 9:21 EST Performed On: 09/25/2021 16:15 EST by Reji Landry Preparer Making Department Cert Lead Meds to Bed Enrollment Patient Enrollment Decision: : Yes/enroll in meds to bed program Reji Landry Preparer Making Department Cert Lead - 09/26/2021 9:20 EST documented in this encounter Plan of Treatment Not on file documented as of this encounter Visit Diagnoses Not on filedocumented in this encounter
--- OUTSIDE RECORDS SUMMARY | 2025-05-17 08:01 | XMS_ITS | Encounter Summary ---
Author Organization [employer] ([place], [place], [place], [place]) Address [address] [place] [address] Care Team Providers Care Community Relations Representative Name Role Phone Unavailable Primary Care Provider Unavailabl e Encounter Details Date Type Department Care Team (Late st Contact Info) Description 09/27/2021 Transcribed Document [facility] [place] Family Medicine [facility] [place] [address] ProviderTammi MD [address] [place] [address] Social History Tobacco Use Types [...] - Tammi ProviderMD - 09/27/2021 7:23 AM SCHOOL BUS DRIVER/TEACHER ASSISTANT UM Authorization Entered On: 09/27/2021 7:25 EST Performed On: 09/27/2021 7:23 EST by Mary Mae, Tc Operator Primary Insurance Authorization Authorization and Policy Numbers : Insurance 1 Health Plan: [facility] Policy Number: [id number] Authorization Number: [id number] Insurance Primary Name : Meme [id number] Authorization Status-Primary : Apprv contin stay Authorization Number-Primary : [id number] Number of Days Authorized-Primary : 2 Day(s) Authorized Service Begin Date-Primary : 09/25/2021 EST Authorized Service End Date-Primary : 09/27/2021 EST Authorization Comments-Primary : Continued stay authorized per fax 09/27/21 @ 0112. Total days approved x3. Historical Authorization Comments-Primary : Comment 1: Clinicals faxed via Marian (VIJAY MASON Rn-Utilization Review 09/26/2021 09:35) Comment 2: [place] approved per Star note for 1 day inpt (SARITHA BARNES, RN-Utilization Review 09/20/2021 13:51) Comment 3: per [facility] [place] inpt auth is PENDING (MARGARITA LUGO, Sulphate Tester 09/19/2021 12:53) Mary Mae, Tc Operator - 09/27/2021 7:23 EST Electronically signed by [facility] Conversion Ceramic Design Engineer Cerner at 02/20/2023 7:20 AM CDT documented in this encounter Plan of Treatment Not on file documented as of this encounter Visit Diagnoses Not on filedocumented in this encounter
--- OUTSIDE RECORDS SUMMARY | 2025-05-17 08:01 | XMS_ITS | Encounter Summary ---
Author Organization [employer] ([place], [place], [place], [place]) Address [address] [place] [address] Care Team Providers Care Psychiatric Assistant Name Role Phone Unavailable Primary Care Provider Unavailabl e Encounter Details Date Type Department Care Team (Late st Contact Info) Description 09/25/[address] [facility] [place] Family Medicine Formerly [facility] [place] [address] ProviderTammi MD [address] [place] [address] Social History Tobacco Use Types Packs/Day Years Used Date Smoking Tobacco: Never Assessed Comments Unknown Sex and Gender Information Value Date Recorded Sex Assigned at Not on file Legal Sex Female 5:43 PM CDT Gender Identity Not on file Sexual Orientation Not on file documented as of this encounter Miscellaneous Notes * Cerner Conversion Note - Tammi ProviderMD - 09/25/2021 9:52 AM REGISTERED NURSE FLOAT POOL Pain Assessment Entered On: 09/26/2021 0:27 EST [...]
--- OUTSIDE RECORDS SUMMARY | 2025-05-17 08:01 | XMS_ITS | Encounter Summary ---
Author Organization [employer] ([place], [place], [place], [place]) Address [address] [place] [address] Care Team Providers Care Senior Strategy Manager Name Role Phone Unavailable Primary Care Provider Unavailabl e Encounter Details Date Type Department Care Team (Late st Contact Info) Description 09/18/2021 Transcribed Document [facility] [place] Family Medicine [facility] [place] [address] ProviderTammi MD [address] [place] [address] Social History Tobacco Use Types Packs/Day Years Used Date Smoking Tobacco: Never Assessed Comments Unknown Sex and Gender Information Value Date Recorded Sex Assigned at Not on file Legal Sex Female 5:43 PM CDT Gender Identity Not on file Sexual Orientation Not on file documented as of this encounter Miscellaneous Notes * Cerner Conversion Note - Tammi ProviderMD - 09/18/2021 9:50 AM CHILDBIRTH AND INFANT CARE TEACHER PAT Adult Entered On: 09/18/2021 9:52 EST [...] Source : Measured Height Entry Format : Wilkes Height, Feet : 0 ft(Converted to: 0 cm, 0 Inch) Height, Inches : 64 Inch(Converted to: 5 ft 4 Inch, 162.56 cm) Clinical Height : 162.56 cm Weight Source : Standing scale Weight Entry Format : Wilkes Clinical Dosing Weight : 74.57 kg Weight, Pounds : 164 lb Weight, Ounces : 1 oz Body Surface Area (BSA) : 1.8 m2 Body Mass Index : 28.2 kg/m2 (HI) Magnet Body Weight : 54 kg REMEDIOS BETHEA [...] REMEDIOS BETHEA RN - 09/18/2021 10:05 EST [place] Suicide Severity Rating Scale (C-SSRS) CSSRS Past [...] understanding Other : Verbalizes understanding (Comment: Bactroban [REEMDIOS BETHEA RN - 09/18/2021 10:24 EST] ) General Info Support Person/Pt Rep Name : [place] Family/Rep/Phys Notified of Admit : No Emergency Contact #1 : sheldon Emergency Contact #1 Emergency Contact #1 Relationship : spouse Emergency Contact #2 : n Emergency Contact #2 Phone Number : n Emergency Contact #2 Relationship : n Information Obtained From : Patient Primary Language : Tanzanian Preferred Communication Mode : Verbal Communication Barrier : None Steam Conditioning Operator Needed : No Status : Hysterectomy REMEDIOS [...] REMEDIOS BETHEA RN - 09/18/2021 10:05 EST documented in this encounter Plan of Treatment Not on file documented as of this encounter Visit Diagnoses Not on filedocumented in this encounter
--- OUTSIDE RECORDS SUMMARY | 2025-05-17 08:01 | XMS_ITS | Encounter Summary ---
Author Organization [email or web address] ([place], [place], [place], [place]) Address [address] [place] [address] Care Team Providers Care Patient Care Assistant Name Role Phone Unavailable Primary Care Provider Unavailabl e Encounter Details Date Type Department Care Team (Late st Contact Info) Description 09/25/[address] [facility] [place] Family Medicine Formerly [facility] [place] [address] ProviderTammi MD [address] [place] [address] Social History Tobacco Use Types Packs/Day Years Used Date Smoking Tobacco: Never Assessed Comments Unknown Sex and Gender Information Value Date Recorded Sex Assigned at Not on file Legal Sex Female 5:43 PM CDT Gender Identity Not on file Sexual Orientation Not on file documented as of this encounter Miscellaneous Notes * Cerner Conversion Note - Tammi ProviderMD - 09/25/2021 7:[address] [facility] Main OR Preop Summary Primary Physician: KEITH WADDELL MD-CAT Finalized Date/Time: 09/25/21 07:58:16 Pt. Name: ZOHRA CHANDLERO.B./Sex: 1980 Female Med Rec #: [id number] Physician: KEITH WADDELL MD-CAT Financial #: [id number] Pt. Type: P Room/Bed: / Admit/Disch: 09/12/21 10:13:00 - Institution: [facility] PreOp Case Times Entry 1 In Preop 09/25/21 06:40:00 Ready for Holding n/a Room Patient Ready for 09/25/21 07:00:00 Surgery Patient Out of Preop 09/25/21 07:23:00 Patient Out of n/a Holding Room Last Modified By: MARSHALL REYNA RN 09/25/21 07:58:11 [facility] PreOp Case Times Audit 09/25/21 07:58:11 Interactive Media Marketing Director: KOMAL Modifier: MCGRANM <+> 1 Patient Out of Preop 09/25/21 07:01:27 Interactive Media Marketing Director: KOMAL Modifier: MCGRANM <+> 1 Patient Ready for Surgery Finalized By: MARSHALL REYNA RN Document Signatures Signed By: MARSHALL REYNA RN 09/25/21 07:58 Electronically signed by Saud [facility] Conversion Telephone Interviewer Cerner at 02/20/2023 7:07 AM CDT documented in this encounter Plan of Treatment Not on file documented as of this encounter Visit Diagnoses Not on filedocumented in this encounter
--- OUTSIDE RECORDS SUMMARY | 2025-05-17 08:01 | XMS_ITS | Encounter Summary ---
Author Organization [employer] ([place], [place], [place], [place]) Address [address] [place] [address] Care Team Providers Care Supplier Quality Engineering Manager Name Role Phone Unavailable Primary Care Provider Unavailabl e Encounter Details Date Type Department Care Team (Late st Contact Info) Description 09/19/2021 Transcribed Document [facility] [place] Medicine [facility] [place] [address] ProviderTammi MD [address] [place] [address] Social History Tobacco Use Types [...] - Tammi ProviderMD - 09/19/2021 12:53 PM MEDICAL/SURGERY REGISTERED NURSE UM Authorization Entered On: 09/19/2021 12:54 EST Performed On: 09/19/2021 12:53 EST by MARGARITA LUGO Wine Master Primary Insurance Authorization Authorization and Policy Numbers : Insurance 1 Health [facility] Policy Number: [id number] Authorization Number: Insurance Primary Name : Meme [id number] Authorization Number-Primary : PENDING AUTH [id number] Authorized Service Begin Date-Primary : 09/20/2021 EST Authorization Comments-Primary : per STAR Meme inpt auth is PENDING Historical Authorization Comments-Primary : No Authorization Comments Found MARGARITA LUGO, Wine Master - 09/19/2021 12:53 EST documented in this encounter Plan of Treatment Not on file documented as of this encounter Visit Diagnoses Not on filedocumented in this encounter
--- OUTSIDE RECORDS SUMMARY | 2025-05-17 08:01 | XMS_ITS | Encounter Summary ---
Author Organization Healthcare Address [address] [place] [address] Care Team Providers Care Electronic Service Technician Name Role Phone Adam Ireland MD Primary Care Provider [phone] Brandon Gautam MD Unavailable [phone] Angel Pond MD Primary Care Provider [phone] Encounter Details Date Type Department Care Team ([facility] Contact Info) Description 08/15/2021 Lab Requisition [facility] [address] [place] [address] AmauriLiat fuentes [address] [place] [id number] Pulmonary mycobacterial infection (CMS/HCC) Social History Tobacco [...] Upcoming Encounters Date Type Department Care Team ([facility] Contact Info) Description 06/30/2025 2:00 PM EDT Office Visit [facility] [address] [place] [address] Brittany Oakes, PATIENT CARE MANAGER [address] [place] [address] 07/07/2025 9:00 AM EDT Consult Medical Office Building Urology [address] [place] [address] Leonela Patterson, GILL, DNP [address] [place] [address] 08/25/2025 10:00 AM EDT Office Visit [facility] [address] [place] [address] Porsche Kilgore MD [address] [place] [address] documented as of this encounter [...] Signature, Body Fluid 08/16/2021 12:10 PM EDT [facility] Comment:Reviewed by: Cassandra maloney MD LAB CP ASR DISCLAIMER Yes 08/16/2021 12:10 PM EDT [facility] Bronchoalveolar lavage fluid specimen (specimen) 08/15/2021 6:17 PM EDT 08/15/2021 6:17 PM EDT [facility] BODY FLUIDS AND STOOLS ORDER GET Final Result [facility] [address] [place] [address] * Bronchoalveolar Lavage Cell Count W/ Diff (08/15/2021 6:17 PM EDT) Total Nucleated Cell Count, Body fluid 66 uL LAB HEMATOLOGY METHOD 08/15/2021 7:37 PM EDT [facility] Comment:Test performed by adelaida keith method Neutrophils %, BAL 68 % LAB HEMATOLOGY METHOD 08/15/2021 7:37 PM EDT [facility] Lymphocytes %, BAL 0 % LAB HEMATOLOGY METHOD 08/15/2021 7:37 PM EDT [facility] Monocytes/Macro phages %, BAL 12 % LAB HEMATOLOGY METHOD 08/15/2021 7:37 PM EDT [facility] Eosinophils %, BAL 20 % LAB HEMATOLOGY METHOD 08/15/2021 7:37 PM EDT [facility] Basophils %, BAL 0 % LAB HEMATOLOGY METHOD 08/15/2021 7:37 PM EDT [facility] Squamous Cells %, BAL 0 % LAB HEMATOLOGY METHOD 08/15/2021 7:37 PM EDT [facility] Bronchial Cells %, BAL 0 % LAB HEMATOLOGY METHOD 08/15/2021 7:37 PM EDT [facility] Other Cells %, BAL 0 % LAB HEMATOLOGY METHOD 08/15/2021 7:37 PM EDT [facility] Comment, BAL NONE LAB HEMATOLOGY METHOD 08/15/2021 7:37 PM EDT [facility] Comment:This is an appended report. These results have been appended to a previously preliminary verified report. Bronchoalveolar lavage fluid specimen (specimen) 08/15/2021 6:17 PM EDT 08/15/2021 6:17 PM EDT [facility] BODY FLUIDS AND STOOLS ORDER GET Final Result [facility] [address] [place] [address] documented in this encounter Visit Diagnoses Diagnosis Pulmonary mycobacterial infection (CMS/HCC) documented in this encounter Care Teams Electronic Service Technician Relationship Specialty Start Date End Date Adam Ireland MD [address] [place] [address] PCP - General 03/17/21 09/10/22 Angel Pond MD [address] [place] [address] [address] [place] [address] PCP - General 09/11/22 Brandon Gautam MD [address] [address] Referring Physician 01/04/22 documented as of this encounter
--- OUTSIDE RECORDS SUMMARY | 2025-05-17 08:01 | XMS_ITS | Encounter Summary ---
Author Organization [employer] ([place], [place], [place], [place]) Address [address] [place] [address] Care Team Providers Care Epic Willow Analyst Name Role Phone Unavailable Primary Care Provider Unavailabl e Encounter Details Date Type Department Care Team (Late st Contact Info) Description 09/25/2021 Transcribed Document [facility] [place] [facility] [place] [address] ProviderTammi MD [address] [place] [address] Social History Tobacco Use Types Packs/Day [...] Tammi Lam MD - 09/25/2021 9:52 AM LOAN WORKOUT OFFICER Pain Assessment Entered On: 09/26/2021 3:13 EST [...]
--- OUTSIDE RECORDS SUMMARY | 2025-05-17 08:01 | XMS_ITS | Encounter Summary ---
Author Organization [employer] ([place], [place], [place], [place]) Address [address] [place] [address] Care Team Providers Care Enrollment Manager Name Role Phone Unavailable Primary Care Provider Unavailabl e Encounter Details Date Type Department Care Team (Late st Contact Info) Description 09/25/2021 Transcribed Document [facility] [place] Family Medicine Formerly [facility] [place] [address] ProviderTammi MD [address] [place] [address] Social History Tobacco Use Types [...] - Tammi ProviderMD - 09/25/2021 6:10 AM RETRIEVAL SPECIALIST Patient: ZOHRA GUTIERREZ Age: 40 years Sex: [...] All Problems Rheumatoid arthritis / SNOMED CT 870441450 / Confirmed Pneumonia / SNOMED CT 836712487 / Confirmed Lung infection (chronic) / SNOMED CT 052304816 / Confirmed states started in 2019 History of MAC infection / SNOMED CT 3879432739 / Confirmed GERD - Gastro-esophageal reflux disease / SNOMED CT 4054243019 / Confirmed Fibromyalgia / SNOMED CT 999571912 / Confirmed Shortness of breath ([facility]) / SNOMED CT 586738132 / Confirmed Depression / SNOMED CT 02020016 / Confirmed Bronchitis / SNOMED CT 10507724 / Confirmed, Active Problems (9) Bronchitis Depression [...] lower back interstim noted. Integumentary: Warm, Dry, [place]. Neurologic: Alert, Oriented. Psychiatric: Cooperative, Appropriate mood [...]
--- OUTSIDE RECORDS SUMMARY | 2025-05-17 08:01 | XMS_ITS | Encounter Summary ---
Author Organization [employer] ([place], [place], [place], [place]) Address [address] [place] [address] Care Team Providers Care Pathology Secretary Name Role Phone Unavailable Primary Care Provider Unavailabl e Encounter Details Date Type Department Care Team (Late st Contact Info) Description 09/25/2021 Transcribed Document [facility] Family Medicine [facility] [place] [address] ProviderTammi MD [address] [place] [address] Social History Tobacco Use Types Packs/Day Years Used Date Smoking Tobacco: Never Assessed Comments Unknown Sex and Gender Information Value Date Recorded Sex Assigned at Not on file Legal Sex Female 5:43 PM CDT Gender Identity Not on file Sexual Orientation Not on file documented as of this encounter Miscellaneous Notes * [employer]ner Conversion Note - Tammi ProviderMD - 09/25/2021 8:44 AM MASKING MACHINE OPERATOR [facility] Main OR IntraOp Summary Primary Physician: KEITH WADDELL MD-CAT Finalized Date/Time: 09/26/21 13:16:06 Pt. Name: ZOHRA GUTIERREZ /Sex: 1980 Female Med Rec #: [id number] Physician: KEITH WADDELL MD-CAT Financial #: [id number] Pt. Type: I Room/Bed: [facility]/1 Admit/Disch: 09/25/21 09:19:00 - Institution: [facility] IntraOp Case Attendance Entry 1 Entry 2 Entry 3 Case Attendee KEITH WADDELL Grimes, Jennifer, [employer] PEPPER, PATRICK, PA MD-CAT Pref Card Builder Role Performed Surgeon/Proceduralist, Finishing And Shipping Supervisor, First Physician nutrition assistant First Time In 09/25/21 07:26:00 09/25/21 [...] Pref Card Builder 09/25/21 09:36:33 09/25/21 09:36:33 [facility] IntraOp Case Attendance Audit 09/25/21 09:36:33 Manager Wealth Management: RICHARD Modifier: TEREZASHIRA 1 <+> Time Out 1 <*> Procedure Thoracoscopy(Right) 2 <+> Time Out 2 <*> Procedure Thoracoscopy(Right) 3 <+> Time Out 3 <*> Procedure Thoracoscopy(Right) 4 <+> Time Out 4 <*> Procedure Thoracoscopy(Right) 5 <+> Time Out 5 <*> Procedure Thoracoscopy(Right) 09/25/21 08:08:20 Manager Wealth Management: RICHARD Modifier: TEREZASHIRA <+> 1 Procedure 2 <+> Time In 2 <*> Procedure Thoracoscopy(Right) 3 <+> Time In 3 <*> Procedure Thoracoscopy(Right) 4 <+> Time In 4 <*> Procedure Thoracoscopy(Right) 5 <+> Time In 5 <*> Procedure Thoracoscopy(Right) [facility] IntraOp Case Times Entry 1 Patient In Room Time 09/25/21 07:26:00 Out Room Time 09/25/21 09:35:00 Anesthesia Start Time 09/25/21 07:26:00 Stop Time 09/25/21 09:35:00 Surgery / Procedure Times Start Time 09/25/21 08:44:00 Stop Time 09/25/21 09:27:00 Last Modified By: Yojana Swann [employer] Pref Card Builder 09/25/21 09:35:04 [facility] IntraOp Case Times Audit 09/25/21 09:35:04 Manager Wealth Management: RICHARD Modifier: CHIQUITAIMESJE <+> 1 Out Room Time <+> 1 Stop Time <+> 1 Stop Time 09/25/21 08:44:35 Manager Wealth Management: RICHARD Modifier: CHIQUITAIMESJE <+> 1 Start Time [facility] IntraOp Cautery Entry 1 ESU Identification Cautery Type Monopolar ESU ID Number [id number] ID Type Hospital Number Cautery Settings Cut [...] Swann [employer] Pref Card Builder 09/25/21 08:05:19 [facility] IntraOp Communication Entry 1 Entry 2 Communication To Family/Significant other Family/Significant other Comment START CLOSING Communication By Yojana Swann [employer] Grimes, Jennifer, [employer] Pref Card Builder Pref Card Builder Date and Time 09/25/21 08:44:00 09/25/21 09:11:00 Last Modified By: Yojana Swann [employer] Grimes, Jennifer, [employer] Pref Card Builder Pref Card Builder 09/25/21 08:44:47 09/25/21 09:11:38 [facility] IntraOp Communication Audit 09/25/21 09:11:38 Manager Wealth Management: RICHARD Modifier: RICHARD <+> 2 Communication By <+> 2 Date and Time <+> 2 Communication To <+> 2 Comment [facility] IntraOp Counts Verification Entry 1 Procedure Thoracoscopy(Right) [...] Swann [employer] Pref Card Builder 09/25/21 09:20:47 [facility] IntraOp Counts Final Audit 09/25/21 09:20:47 Manager Wealth Management: RICHARD Modifier: RICHARD 1 <*> Procedure Thoracoscopy(Right) 1 <+> Count Performed By (Scrub) 1 <+> Count Performed By (RN) [facility] IntraOp Cultures and Spec Summary Entry 1 Cultrures and Specimens Specimen Ordered: Yes Test(s) Routine/Path-Lab, Requested/Final Culture(s)/Microbiology Disposition Last Modified By: Yojana Swann [employer] Pref Card Builder 09/25/21 09:05:50 General Comments: 1. RIGHT MIDDLE LOBE - CULTURE [facility] IntraOp Cultures and Spec Summary Audit 09/25/21 09:05:50 Manager Wealth Management: RICHARD Modifier: RICHARD 1 <*> Test(s) Requested/Final Disposition 1 <*> Test(s) Requested/Final Disposition 1 <*> Test(s) Requested/Final Disposition Culture(s)/Microbiology 1 <*> Test(s) Requested/Final Disposition Culture(s)/Microbiology 1 <*> Test(s) Requested/Final Disposition Culture(s)/Microbiology [facility] IntraOp Departure from OR Entry 1 Integumentary Assessment Integumentary WDL Assessment WDL Transfer/Handoff Transfer to PACU Phase I Handoff Method Bedside/Face to face, Phone call Post-op Transport Stretcher/Gurney Via Patient Transport OG MEDEIROS, Accompanied by DHRUV, LORETTA SALMERON PA Last Modified By: Yojana Swann [employer] Pref Card Builder 09/25/21 08:06:24 [facility] IntraOp Drains and Tubes Entry 1 Device Type Chest Tube Size 32 FR Drain/Tube Activity Tube secured/stabilized, Inserted Drain/Tube Suction Continuous low Drain/Tube Drainage Red Device Location chest, operative side Method of Drainage Continuous suction Chest Tubes Water-Seal 20 cm suction Connectivity Tube Dressing Dry, Intact Condition Last Modified By: Yojana Swann [employer] Pref Card Builder 09/25/21 09:05:58 [facility] IntraOp Drains and Tubes Audit 09/25/21 09:05:58 Manager Wealth Management: RICHARD Modifier: RICHARD <+> 1 Size [facility] IntraOp Dressing and Packing Entry 1 Wound Dressing Item 4x4's Other Comments covaderm, Soft cloth paper tape Last Modified By: Yojana Swann [employer] Pref Card Builder 09/25/21 08:47:39 [facility] IntraOp Fire Risk Assessment Entry 1 Fire [...] Swann [employer] Pref Card Builder 09/25/21 08:06:30 [facility] IntraOp 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 1 Case Information OR OR [facility] Case Level 1 Room Verified Yes Wound Class 1 - Clean Specialty Cardio Thoracic Anesthesia Type General ASA Class 3 Diagnosis Preop Diagnosis PULMONARY MYCOBACTERIAL INFECTION Postop Same As Preop No Postop Diagnosis SEE MD POST OP NOTE Wound Class Definitions Last Modified By: Yojana Swann [employer] Pref Card Builder 09/25/21 08:50:01 [facility] IntraOp General Case Data Audit 09/25/21 08:50:01 Manager Wealth Management: RICHARD Modifier: RICHARD <+> 1 Preop Diagnosis <+> 1 Room Verified [facility] IntraOp Intraoperative Assessment Entry 1 Handoff Method [...] OR Last Modified By: Yojana Swann [employer] Card Builder 09/25/21 08:06:58 [facility] IntraOp Intraoperative Equipment Entry 1 Type Monitoring Equipment Intraop Monitoring Electrocardiogram Five lead placement (ECG) Electrode Placement Blood Pressure Non-Invasive BP Device Source Blood Pressure Arm, right upper Location Pulse Oximeter Hand, left Probe Site Antiembolic Devices Antiembolic Devices Sequential compression device, knee high Antiembolic Device Bilateral Location Antiembolic Device [id number] ID Number Antiembolic Device 43 [id number] Setting Scopes Photo/Video Documentation Last Modified By: Yojana Swann [facility] Card Buildemiliana 09/25/21 08:07:35 [facility] IntraOp Medication Admin Entry 1 Medication/Irrigant lidocaine 1% 30ml vial - [id number] Route of LOCAL Administration Dose Dose 30 Unit of Measure ml Administered By KEITH WADDELL MD-CAT Procedure Irrigation Last Modified By: Yojana Swann [employer] Card Builder 09/25/21 08:53:08 [facility] IntraOp Patient Positioning Entry 1 Procedure Thoracoscopy(Right) [...] patient's leg Positioned By Yojana Swann [employer] Card Merlyn, OG MEDEIROS MD-ANS, KEITH WADDELL MD-CAT Position Verified Positioning Yes Verified by Anesthesia Positioning Yes Verified by Surgeon Last Modified By: Yojana Swann [employer] Pref Card Builder 09/25/21 08:07:52 [facility] IntraOp Sign In Entry 1 Patient, Site, [...] Swann [employer] Pref Card Builder 09/25/21 08:07:59 [facility] IntraOp Sign Out Entry 1 RN Confirmation Surgical Yes Procedure(s) Identified Instrument, Sponge Yes and Sharps Counts Correct/Documented Equipment Problems Yes Documented Specimen Labeled Yes Correctly Urinary Catheter N/A Documented in IView Wound Yes classification reviewed, verified and updated post case in both the General Case Data and Procedure segments Chavez Patient Yes Recovery Concerns Reviewed with Anesthesia [...] Swann [employer] Pref Card Builder 09/25/21 09:36:42 [facility] IntraOp Sign Out Audit 09/25/21 09:36:42 Manager Wealth Management: RICHARD Modifier: RICHARD <+> 1 RN Sign Out Signature Date/Time [facility] IntraOp Skin Prep Entry 1 Procedure Thoracoscopy(Right) Prescribed Yes Pre-Surgical Prep Completed Prep Area Operative side, chest laterally, anterior & posterior, shoulder to waist Intraop Prep Integumentary WDL Assessment WDL Prep Agents Chloraprep Prep by Yojana Swann [employer] Pref Card Buildemiliana Hair Removal Last Modified By: Yojana Swann [employer] Pref Card Builder 09/25/21 08:08:14 [facility] IntraOp Surgical Procedures Entry 1 Procedure Thoracoscopy Modifiers Right Additional (RT THORACOSCOPY, OPEN Procedure LUNG BIOPSY, POSSIBLE Description THORACOTOMY) Primary Procedure Yes Primary Surgeon KEITH WADDELL MD-CAT Start 09/25/21 08:44:00 Stop 09/25/21 09:27:00 Anesthesia Type General Specialty Cardio Thoracic Wound Class 1 - Clean Last Modified By: Yojana Swann [employer] Pref Card Builder 09/25/21 09:36:44 [facility] IntraOp Surgical Procedures Audit 09/25/21 09:36:44 Manager Wealth Management: RICHARD Modifier: RICHARD <+> 1 Stop 09/25/21 08:51:52 Manager Wealth Management: RICHARD Modifier: RICHARD <+> 1 Start [facility] IntraOP Time Out Entry 1 Procedure to [...] Swann [employer] Pref Card Builder 09/25/21 08:44:08 [facility] IntraOP Time Out Audit 09/25/21 08:44:08 Manager Wealth Management: RICHARD Modifier: RICHARD 1 <+> Time Out Pause Time 1 <*> Procedure to be Performed Thoracoscopy(Right) Case Comments <None> Finalized By: FAIZAN CHIU Document Signatures Signed By: Yojana Swann [employer] Pref Card Builder 09/25/21 09:36 CHIUFAIZAN 09/26/21 13:16 Unfinalized History Date/Time Username Reason for Unfinalizing Freetext Reason for Unfinalizing 09/26/21 13:14 [email or web address] Correct Billing Electronically signed by Saud [facility] Conversion Marketing Business Analyst [employer] at 02/20/2023 7:04 AM CDT documented in this encounter Plan of Treatment Not on file documented as of this encounter Visit Diagnoses Not on filedocumented in this encounter
--- OUTSIDE RECORDS SUMMARY | 2025-05-17 08:01 | XMS_ITS | Data Portability ---
Author Organization [facility] & JUDY Love ADMIN Address [address] [place] [address] Care Team Providers Care Top Stop Attacher Name Role Phone CARISSA WILLSON Primary Care [...] urinalysi s, dipstick 2024 06 025 [email or web address] [facility], [address] [facility] 100, [place], [address], 04/27/2025 11:02:23 Referral None recorded. Procedures bladder scan (PROC) 2024 025 [email or web address] [place] [address], [address] [facility] [address], [place], [address], 04/27/2025 11:02:23 Surgeries None recorded. Imaging US, renal 2024 025 alcides [email or web address] [facility] (Centralized Scheduling), [address], [place], [address], 05/12/2025 11:40:07 Medication Orders Hiprex 1 gram tablet 2024 025 [facility]91, [address], [address], 04/27/2025 11:02:28 Patient TargetsNo targets recorded. Patient InstructionsNo instructions recorded. Reason for Referral None Reported. Results Created Date Observation Date Name Description Value Unit Range Abnormal Flag Note LastModifiedBy Organization Detail LastModifiedTime 04/27/2004/27/2025 urina lysis , dipst ick Leukocytes (reference range) negati ve Not Available [place] [address] [address] [facility] 100, [place], [address], 04/27/2025 10:49:49 04/27/20 25 04/27/2025 urina lysis , dipst ick Nitrite (reference range:) negati ve Not Available [place] [address] [address] [facility] 100, [place], [address], 04/27/2025 10:49:49 04/27/20 25 04/27/2025 urina lysis , dipst ick Urobilinogen (reference range) 0.2 Not Available [place] [address] [address] [facility] 100, [place], [address], 04/27/2025 10:49:49 04/27/20 25 04/27/2025 urina lysis , dipst ick Protein (reference range) trace Not Available [place] [address] [address] [facility] [address], [place], [address], 04/27/2025 10:49:49 04/27/20 25 04/27/2025 urina lysis , dipst ick pH (reference range 5-8.5) 6.0 Not Available [place] [address] [address] [facility] 100, [place], [address], 04/27/2025 10:49:49 04/27/20 25 04/27/2025 urina lysis , dipst ick Blood (reference range:) negati ve Not Available [place] [address] [address] [facility] [address], [place], [address], 04/27/2025 10:49:49 04/27/20 25 04/27/2025 urina lysis , dipst ick Specific [place] (reference range) 1.005 Not Available [place] [address] [address] [facility] [address], [place], [address], 04/27/2025 10:49:49 04/27/20 25 04/27/2025 urina lysis , dipst ick Ketone (reference range) trace Not Available [place] [address] [address] [facility] 100, [place], [address], 04/27/2025 10:49:49 04/27/20 25 04/27/2025 urina lysis , dipst ick Bilirubin (reference range) negati ve Not Available [place] [address] [address] [facility] [address], [place], [address], 04/27/2025 10:49:49 04/27/20 25 04/27/2025 urina lysis , dipst ick Glucose (reference range) negati ve Not Available [place] [address] [address] [facility] [address], [place], [address], 04/27/2025 10:49:49 04/27/20 25 04/27/2025 urina lysis , dipst ick Color (reference range: yellow-brown ) Yellow Not Available [facility], [place], [address], 04/27/2025 10:49:49 04/27/20 25 04/27/2025 bladd er scan (PROC ) Calculated Residual Urine: 77ml Not Available [facility], [place], [address], 04/27/2025 10:49:12 05/06/20 25 05/05/2025 renal ,bila teral [facility] [address] [place] [address] Phone: Fax: Name: ZOHRA GUTIERREZ Exam Date: 05/05/20 : [birth year] Age 44 years Gender : F Access ion: [id number] Physic isaiah: OPHELIA CRABTREE Facili ty: [facility] Facili ty HSV: Outpat ient Exam: RENAL, [...] Thank you for referr ZOHRA Bishop to [facility]. Legall y authen ticate d by ROSHAN GUZMAN Luis Enrique 5-0 05-06 02:31: 03 CC'ed Logic: Orderi ng Provid er: BRO OPHELIA Attend ing Provid er: BRO OPHELIA Admitt ing Provid er: BRO OPHELIA [email or web address] [facility] Therapy [address], [place], [address], 05/10/2025 13:01:19 Result Notes None recorded. Problems Name Problem SNOMED Code Status Onset Date Resolution Date Notes Provider Name and Address Organization Details Recorded Time Recurrent urinary tract infection 945281859 Active 025 OPHELIA CRABTREE MD [address], [place], [address] [facility] [place] 11:02:03 Problem Notes None recorded. Procedures Surgical History Date Name Laterality Status Provider Name and Address Organization Details Recorded Time operative procedure on knee completed Kelly Woods [place] - [facility] [facility] [place] 04/27/2025 10:48:57 ankle joint operations completed [facility] Woods [place] - [facility] [facility] & [place] 04/27/2025 10:49:11 myringotomy and insertion of T tube completed Kelly Miramontesanneliese OLIVEIRA LPNT [facility] & [place] 04/27/2025 10:49:23 Imaging Results None recorded. Procedure Notes None recorded. Medical Equipment None Reported. Allergies Allergen ID Allergen Name Allergen Category Reaction Reaction Severity Criticality Documentation Date Start Date Code Code System Note Provider Name and Address Organization Details Recorded Time 544124 Bactrim medicatio n Not available Not available Not available 04/12/2025 44318 9 RxNorm Kelly Miramontesanneliese cantrell [place] - [facility] [facility] [place] 13:49:34 Medications Name Sig [...] AT LEAST 2 HOURS AFTER FIRST DOSE active Not Available Not Available No t Available Wegovy 1.7 mg/0.75 mL subcutaneou s [...] and Address Organization Details Last Updated DateTime 5 91056.4 3 g 97 % 97 % 96 /min 120/60 mm[Hg] Ilsa Mateusz [place] - LPNT [facility] & [place] 10:48:52 Social History None recorded. Functional Status None recorded. Mental Status None recorded. Family History Nothing Reported. Medical History No medical history recorded. Gynecological HistoryNo gynecological history recorded. Obstetrics History GPAL:G 0 P 0 0 0 0 Past Encounters Encounter ID Performer Location Encounter Start Date Encounter Closed Date Diagnosis/Indication Diagnosis SNOMED-CT Code Diagnosis ICD10 Code Diagnosis Note [id number] OPHELIA CRABTREE MD [facility] [place] [address] 04/27/2025 10:32:39 04/27/2025 11:01:21 Recurrent urinary tract infection 635540602 N39.0 Health Concerns Section Related Observation LastModified by Organization Detai ls LastModified Time None Recorded Concern Status LastModified by Organization Details LastModified Time None Recorded Advance Directives Directive None Recorded Payers Insurance Date Sequence Insurance Name Policy Number Policy Daly Covered Member ID Daly Member ID Guarantor Name 09/02/2019 1 [place] [id number] Zohra Gutierrez [id number] Zohra Gutierrez 04/27/2025 1 [place] [id number] A Alexis Gutierrez [id number] Zohra Gutierrez Notes Date Note Type Note Provider Name and Address Organization Details Recorded Time 04/27/2025 text/html 04/27/25 [id number]-[id number]-femal e referred to my office for chronic [...] frequent UTIs recently. She has been taking tfpl-flr-ptrlbqg medications for symptom management. The patient states [...] Hgb 11.9, Hct 36.1 OPHELIA CRABTREE MD [address], [place], [address], [facility] & [place] 04/27/2025 12:59:52 OBGyn Episode No OBEpisode recorded.
[2025-05-17 08:49] VITALS: BP 123/74; PULSE 62; RESP 18; TEMP 36.2; O2SAT 98; BMI 28.3
--- NOTE | 2025-05-17 16:12 | EXP.TILT ---
Findings:: FINDINGS:: PROCEDURE: Upright tilt table test REQUESTING PHYSICIAN: Kelly Raphael MD INDICATION: Sporadic syncopal episodes MEDS: See H&P PRE-TEST VITAL SIGNS (supine): BP 109/69, heart rate 58, sinus bradycardia, O2 sat 100% PROCEDURE SUMMARY: Patient was prepared per protocol. She was then tilted into the upright position at 70 degrees for a total of 30 minutes with the test being terminated thereafter. She had no syncope or near syncope. No significant changes in blood pressure, heart rate or EKG noted. Peak blood pressure in the standing position 121/68 with heart rate of 60 and O2 sat of 100. Patient was returned back to the supine position without incident. Final blood pressure 112/64 with heart rate of 56 bpm and 97% room air oxygen saturation. COMPLICATIONS: None. CONCLUSION: Unremarkable upright tilt table test.
== END 2025-05-17 10:21 | disposition home or self-care (01) ==
LOC: RT 05-18 10:52
PROVIDERS: PCP Nurse Practitioner; Visit Provider Specialist
DX: R55 Syncope and collapse (principal); R11.2 Nausea with vomiting, unspecified; H91.90 Unspecified hearing loss, unspecified ear; M05.79 Rheumatoid arthritis with rheumatoid factor of multiple sites without organ or systems involvement; R00.2 Palpitations; J84.9 Interstitial pulmonary disease, unspecified; Z87.891 Personal history of nicotine dependence; M79.7 Fibromyalgia; J45.909 Unspecified asthma, uncomplicated; F41.9 Anxiety disorder, unspecified; F32.A Depression, unspecified; Z88.8 Allergy status to other drugs, medicaments and biological substances; Z79.899 Other long term (current) drug therapy
CPT/HCPCS: 93660

== ENCOUNTER 2025-06-08 08:55 | Outpatient (CLI) | payer BC, SELFPAY ==
--- OUTSIDE RECORDS SUMMARY | 2025-06-08 08:57 | XMS_ITS | Referral Summary ---
Author Organization [employer] ([place], [place], [place], [place]) Address [address] [place] [address] Care Team Providers Care Leather Finisher Name Role Phone Unavailable Primary Care Provider [...]
--- OUTSIDE RECORDS SUMMARY | 2025-06-08 08:57 | XMS_ITS | Encounter Summary ---
Author Organization [employer] ([place], [place], [place], [place]) Address [address] [place] [address] Care Team Providers Care Charge Machine Operator Name Role Phone Unavailable Primary Care Provider Unavailabl e Encounter Details Date Type Department Care Team (Late st Contact Info) Description 10/05/2021 Transcribed Document [facility] [facility] [place] [address] ProviderTammi MD [address] [place] [address] Social History Tobacco Use Types [...] - Tammi ProviderMD - 10/05/2021 2:17 PM STEEL ERECTOR UM Authorization Entered On: 10/05/2021 14:18 EST Performed On: 10/05/2021 14:17 EST by Mary Mae, Retail Department Supervisor Primary Insurance Authorization Authorization and Policy Numbers : Insurance 1 Health Plan: [facility] Policy Number: [id number] Authorization Number: [id number] Insurance Primary Name : [facility] Policy Number: [id number] Authorization Status-Primary : Approved Auth/Referral Contact Name-Primary : DC Authorization Number-Primary : [id number] Number of Days Authorized-Primary : 3 Day(s) Authorized Service Begin Date-Primary : 09/25/2021 EST Authorized Service End Date-Primary : 09/28/2021 EST Authorization Comments-Primary : Authorized per Availity - Request approved x4 days. Historical Authorization Comments-Primary : Comment 1: Olga per avalility still shows approved for 3 days (SARITHA BARNES RN-Utilization Review 10/03/2021 14:56) Comment 2: Discharge date and summary as well as continued stay clinical 09/28 - discharge faxed. (Mary Mae, Retail Department Supervisor 10/02/2021 14:33) Comment 3: Clinicals faxed via [employer] for 09/26-09/27. (VIJAY MASON, Rn-Utilization Review 09/27/2021 12:03) Comment 4: Continued stay authorized per fax 09/27/21 @ 0112. Total days approved x3. (Mary Mae, Retail Department Supervisor 09/27/2021 07:23) Comment 5: Clinicals faxed via [employer] (VIJAY MASON, Rn-Utilization Review 09/26/2021 09:35) Comment 6: Olga approved per [facility] note for 1 day inpt (SARITHA BARNES, RN-Utilization Review 09/20/2021 13:51) Comment 7: per [facility] Olga inpt auth is PENDING (MARGARITA LUGO, Bank Runner 09/19/2021 12:53) Mary Mae, Retail Department Supervisor - 10/05/2021 14:17 EST Electronically signed by Raheem Villavicencio Conversion Insurance Territory Manager [employer] at 02/20/2023 7:21 AM CDT documented in this encounter Plan of Treatment Not on file documented as of this encounter Visit Diagnoses Not on filedocumented in this encounter
--- OUTSIDE RECORDS SUMMARY | 2025-06-08 08:57 | XMS_ITS | Encounter Summary ---
Author Organization Healthcare Address [address] [place] [address] Care Team Providers Care Habitat Biologist Name Role Phone Brandon Gautam MD Unavailable [phone] Angel Pond MD Primary Care Provider [phone] Encounter Details Date Type Department Care Team (Late st Contact Info) Description 05/20/2023 Lab Requisition [facility] [address] [place] [address] Vega Willett DO [address] [place] [address] Routine general medical examination at [...] Description 06/30/2025 2:00 PM EDT Office Visit [facility] [address], [address]th [place] [address] Brittany Oakes, VICE PRESIDENT [address] [place] [id number] 07/07/2025 9:00 AM EDT Consult Medical Office Building Urology [address] [facility], [address] [place] [address] Leonela Patterson APRN, DNP [address] [place] [address] 08/25/2025 10:00 AM EDT [facility] Visit [facility] [address], [address] [place] [address] Porsche Kilgore MD [address] [place] [address] documented as of this encounter [...] 4.20 uIU/mL 05/20/2023 11:48 AM EDT [facility] Blood Venous blood specimen / Unknown Venipuncture / Unknown 05/20/2023 6:52 AM EDT 05/20/2023 7:44 AM EDT Narrative [facility] - 05/20/2023 11:48 AM EDT Trimester Specific Ranges TSH ( IU/mL) 1st Trimester 0.1 - 3.0 2nd Trimester 0.19 - 4.06 3rd Trimester 0.3 - 3.7 Nubli A Willett DO LAB BLOOD ORDERABLES Final Result Performing Organization Address [facility] de Phone Number HEALTHCARE LAB [address] [place] [address] * Vitamin D 25 Hydroxy (05/20/2023 6:52 [...] 6:52 AM EDT 05/20/2023 7:48 AM EDT [employer] DO LAB BLOOD ORDERABLES Final Result Performing Organization Address [facility] Phone Number HEALTHCARE LAB [address] [place] [address] * (ABNORMAL) Basic metabolic panel (05/20/2023 6:52 [...] - 16 mmol/L 05/20/2023 11:48 AM EDT [facility] Total Calcium, Plasma 8.9 8.9 - 10.2 mg/dL 05/20/2023 11:48 AM EDT [facility] eGFRcr 82.0 mL/min/1.7 3m*2 [...] the two equations, please see laboratory website: [email or web address] Blood Venous blood specimen / Unknown Venipuncture / Unknown 05/20/2023 6:52 AM EDT 05/20/2023 7:44 AM EDT Vega Willett DO LAB BLOOD ORDERABLES Final Result [facility] [address] [place] [address] documented in this encounter Visit Diagnoses Diagnosis [...] documented as of this encounter Care Teams Habitat Biologist Relationship Specialty Start Date End Date Angel Pond MD [address] [place] [address] [address] [place] [address] PCP - General 09/11/22 Brandon Gautam MD [address] [address] Referring Physician 01/04/22 documented as of this encounter
--- OUTSIDE RECORDS SUMMARY | 2025-06-08 08:57 | XMS_ITS | Clinical Summary ---
Author Organization [employer] ([place], [place], [place], [place]) Address [address] [place] [address] Care Team Providers Care Cotton Header Name Role Phone Unavailable Primary Care Provider [...]
--- OUTSIDE RECORDS SUMMARY | 2025-06-08 08:58 | XMS_ITS | Encounter Summary ---
Author Organization [employer] ([place], [place], [place], [place]) Address [address] [place] [address] Care Team Providers Care Dredging Inspector Name Role Phone Unavailable Primary Care Provider Unavailabl e Encounter Details Date Type Department Care Team (Late st Contact Info) Description 09/28/2021 Transcribed Document [facility] [place] [place] Family Medicine [facility] [place] [address] ProviderTammi MD [address] [place] [address] Social History Tobacco Use Types [...] - Tammi ProviderMD - 09/28/2021 2:00 AM SPORTS ANNOUNCER Payroll Accountant Details Entered On: 09/28/2021 2:59 EST Performed [...] EST Electronically signed by Raheem Villavicencio Conversion Supervisor Accounts Receivable Cerner at 02/20/2023 7:19 AM CDT documented in this encounter Plan of Treatment Not on file documented as of this encounter Visit Diagnoses Not on filedocumented in this encounter
--- OUTSIDE RECORDS SUMMARY | 2025-06-08 08:58 | XMS_ITS | Encounter Summary ---
Author Organization [facility] Address [address] [place] [address] Care Team Providers Care Book Cleaner Name Role Phone Brandon Gautam MD Unavailable [phone] Angel Pond MD Primary Care Provider [phone] Reason for Visit * Reason Comments Med Refill Encounter Details Date Type Department Care Team (Late st Contact Info) Description 04/12/2025 Refill [facility] [address] [place] [address] Porsche Kilgore MD [address] [place] [address] Rheumatoid arthritis involving multiple sites [...] Description 06/30/2025 2:00 PM EDT Office Visit [facility] Sleep Disorder Center [address]th [place] [address] Brittany Oakes APRN [address] [place] [address] 07/07/2025 9:00 AM EDT Consult Medical Office Building Urology [address] [facility], [address] [place] [address] Leonela Patterson APRN, DNP [address] [place] [address] 08/25/2025 10:00 AM EDT Office Visit [facility] [address] [place] [address] Porsche Kilgore MD [address] [place] [address] documented as of this encounter Visit Diagnoses Diagnosis Rheumatoid arthritis involving multiple sites with positive rheumatoid factor ([facility])- Primary documented in this encounter Additional Health Concerns Assessment Noted Time PHQ-9 Depression Total Score: 3 01/21/20 25 11:43 AM EDT A fall risk assessment has been complete d for the patient 03/30/2025 1:41 PM EDT A Body Mass Index follow-up plan has been documented for the patient 03/30/2025 2:17 PM EDT documented as of this encounter Care Teams Book Cleaner Relationship Specialty Start Date End Date Angel Pond MD [address] [place] [address] [address] [place] [address] PCP - General 09/11/22 Brandon Gautam MD [address] [place], [place] [address] Referring Physician 01/04/22 documented as of this encounter
--- OUTSIDE RECORDS SUMMARY | 2025-06-08 08:58 | XMS_ITS | Encounter Summary ---
Author Organization [employer] ([place], [place], [place], [place]) Address [address] [place] [address] Care Team Providers Care Activity Leader Name Role Phone Unavailable Primary Care Provider Unavailabl e Encounter Details Date Type Department Care Team (Late st Contact Info) Description 09/28/2021 Transcribed Document [facility] [place] [address] [place] [address] ProviderTammi MD [address] [place] [address] Social History Tobacco Use Types [...] - Tammi ProviderMD - 09/28/2021 5:00 AM REFRIGERATION PLANT CORK INSULATOR Chart Check - Review Order Profile Entered On: 09/28/2021 4:50 EST Performed On: 09/28/2021 5:00 EST by Sirisha Roland RN Chart Check Powerplans Initiated/Discontinued as Appropriate : Yes All Active Orders Reviewed : Yes Sirisha Roland RN - 09/28/2021 4:49 EST Electronically signed by Saud [facility] Conversion Geophysical Drafter Cerner at 02/20/2023 6:59 AM CDT documented in this encounter Plan of Treatment Not on file documented as of this encounter Visit Diagnoses Not on filedocumented in this encounter
--- OUTSIDE RECORDS SUMMARY | 2025-06-08 08:58 | XMS_ITS | Encounter Summary ---
Author Organization [employer] ([place], [place], [place], [place]) Address [address] [place] [address] Care Team Providers Care Mill Tender Name Role Phone Unavailable Primary Care Provider Unavailabl e Encounter Details Date Type Department Care Team (Late st Contact Info) Description 09/26/[address] [facility] [place] [facility] [place] [address] ProviderTammi MD [address] [place] [address] Social History Tobacco Use Types [...] - Tammi ProviderMD - 09/26/2021 5:00 AM OUTSIDE RESIDENTIAL SALES PROFESSIONAL Chart Check - Review Order Profile Entered On: 09/26/2021 4:10 EST Performed On: 09/26/2021 5:00 EST by Sirisha Roland RN Chart Check Powerplans Initiated/Discontinued as Appropriate : Yes All Active Orders Reviewed : Yes Sirisha Roland RN - 09/26/2021 4:10 EST documented in this encounter Plan of Treatment Not on file documented as of this encounter Visit Diagnoses Not on filedocumented in this encounter
--- OUTSIDE RECORDS SUMMARY | 2025-06-08 08:58 | XMS_ITS | Encounter Summary ---
Author Organization [employer] ([place], [place], [place], [place]) Address [address] [place] [address] Care Team Providers Care Assistant Auditor Name Role Phone Unavailable Primary Care Provider Unavailabl e Encounter Details Date Type Department Care Team (Late st Contact Info) Description 09/29/2021 Transcribed Document [facility] [place] [facility] [place] [address] ProviderTammi MD [address] [place] [address] Social History Tobacco Use Types [...] Tammi Lam MD - 09/29/2021 10:27 AM GRADUATE SCHOOL DEAN Final Discharge Planning Entered On: 09/29/2021 10:31 EST Performed On: 09/29/2021 10:27 EST by KRYSTEN LOPEZ RN-Glass Finisher Final Discharge Planning Discharge Arrangements : Patient Post-Acute Information Patient Name: ZOHRA GUTIERREZ Gender: Female : [birth year] Age: 40 Years No Post-Acute Placement(s) Listed No Post-Acute Service(s) Listed No Curaspan Referral(s) Listed Patient Offered Choice/Affiliations Explained : Yes (Comment: Patient was offered a list of DME providers that included CMS star ratings but did not have a preference for provider. [KRYSTEN LOPEZ RN-Glass Finisher - 09/29/2021 10:27 EST] ) Designation of Choice Signed : Yes Transportation Needs : Family/Friend Follow Up Appointment Scheduled : No (Comment: List of follow up appointments sent to Patient Access to schedule. [KRYSTEN LOPEZ, RN-Glass Finisher - 09/29/2021 10:27 EST] ) Is Patient High/Moderate Readmission Risk? : No Patient/Family Notified of Plan : Yes Patient/Family Notified : Patient Is Patient Ready for Discharge? : Yes Physician Notified Patient is Ready for Discharge? : Yes Discharge To Care Management : Home/Residential/[facility]ci or Self Care -01 KRYSTEN LOPEZ RN-Glass Finisher - 09/29/2021 10:27 EST Final Narrative Note Final Narrative Note : RAR Low ELOS: 4 days HD#4 DCP: Discharge home on 3 liters of Oxygen with [facility]. KRYSTEN LOPEZ RN-Glass Finisher - 09/29/2021 10:27 EST documented in this encounter Plan of Treatment Not on file documented as of this encounter Visit Diagnoses Not on filedocumented in this encounter
--- OUTSIDE RECORDS SUMMARY | 2025-06-08 08:58 | XMS_ITS | Encounter Summary ---
Author Organization [employer] ([place], [place], [place], [place]) Address [address] [place] [address] Care Team Providers Care Mine Manager Name Role Phone Unavailable Primary Care Provider Unavailabl e Encounter Details Date Type Department Care Team (Late st Contact Info) Description 09/29/2021 Transcribed Document [facility] [place] Family Medicine [facility] [place] [address] ProviderTammi MD [address] [place] [address] Social History Tobacco Use Types Packs/Day [...] Tammi Lam MD - 09/29/2021 8:35 AM SALES MARKETING DIRECTOR Patient: ZOHRA GUTIERREZ Age: 40 Years Sex: Female : 1980 Admit Date 09/25/2021 09:19 Discharge Date 09/29/21 Primary Care Provider TROY CALVILLO MD-[facility] Discharge Diagnosis Pneumonia involving right lung 09/29/2021 [...]
--- OUTSIDE RECORDS SUMMARY | 2025-06-08 08:58 | XMS_ITS | Encounter Summary ---
Author Organization [employer] ([place], [place], [place], [place]) Address [address] [place] [address] Care Team Providers Care Dragger Out Name Role Phone Unavailable Primary Care Provider Unavailabl e Encounter Details Date Type Department Care Team (Late st Contact Info) Description 10/02/2021 Transcribed Document [facility] [place] Family Medicine [facility] [place] [address] ProviderTammi MD [address] [place] [address] Social History Tobacco Use Types [...] Lam MD - 10/02/2021 12:43 PM SUPERVISOR DRYING Please Modify Before Signing CLINICAL DOCUMENTATION CLARIFICATION [...] 09/25: orders- Transfer from Med/Surg to Telemetry CDS/Job Coach/Job Developer Signature: __ELIUD Plummer, RN, CDS Phone #: __[phone] Acute Respiratory Failure: ABG pH < 7.35 or > 7.45; Decreased oxygen saturation (<90% room air or < 95% on oxygen); PCO2 > 50 mm Hg; PO2 < 60 mm Hg; Labored or rapid respirations ARDS: Dx Criteria [Willard ARDS]: Respiratory symptoms within one week of a known clinical insult (e.g. shock, infection, surgery, trauma) Bilateral opacities in CXR/Chest CT not due to CHF or fluid This is a permanent part of the Medical Record Q53 [address] [facility] Reviewed: 02/2021 Electronically signed by Raheem Villavicencio Conversion Auto Finance Sales Rep Cerner at 02/20/2023 7:13 AM CDT documented in this encounter Plan of Treatment Not on file documented as of this encounter Visit Diagnoses Not on filedocumented in this encounter
--- OUTSIDE RECORDS SUMMARY | 2025-06-08 08:58 | XMS_ITS | Encounter Summary ---
Author Organization [employer] ([place], [place], [place], [place]) Address [address] [place] [address] Care Team Providers Care Outdoor Recreation Specialist Name Role Phone Unavailable Primary Care Provider Unavailabl e Encounter Details Date Type Department Care Team (Late st Contact Info) Description 10/02/2021 Transcribed Document [facility] [place] Family Medicine [facility] [place] [address] ProviderTammi MD [address] [place] [address] Social History Tobacco Use Types [...] Tammi Lam MD - 10/02/2021 2:33 PM LEAD FABRICATOR UM Authorization Entered On: 10/02/2021 14:34 EST Performed On: 10/02/2021 14:33 EST by Mary Mae, Foster Care Worker Primary Insurance Authorization Authorization and Policy Numbers : Insurance 1 Health Plan: [facility] Policy Number: [id number] Authorization Number: [id number] Insurance Primary Name : [facility] Policy Number: [id number] Authorization Status-Primary : Awaiting callback Auth/Referral Contact Name-Primary : [place] Authorization Number-Primary : [id number] Number of Days Authorized-Primary : 2 Day(s) Authorized Service Begin Date-Primary : 09/25/2021 EST Authorized Service End Date-Primary : 09/27/2021 EST Authorization Comments-Primary : Discharge date and summary as well as continued stay clinical 09/28 - discharge faxed. Historical Authorization Comments-Primary : Comment 1: Clinicals faxed via [employer] for 09/26-09/27. (VIJAY MASON, Rn-Utilization Review 09/27/2021 12:03) Comment 2: Continued stay authorized per fax 09/27/21 @ 0112. Total days approved x3. (Mary Mae, Foster Care Worker 09/27/2021 07:23) Comment 3: Clinicals faxed via [employer] (VIJAY MASON, Rn-Utilization Review 09/26/2021 09:35) Comment 4: [facility] approved per [facility] note for 1 day inpt (SARITHA BARNES, RN-Utilization Review 09/20/2021 13:51) Comment 5: per [facility] inpt auth is PENDING (MARGARITA LUGO, Brick Pointer 09/19/2021 12:53) Mary Mae, Foster Care Worker - 10/02/2021 14:33 EST documented in this encounter Plan of Treatment Not on file documented as of this encounter Visit Diagnoses Not on filedocumented in this encounter
--- OUTSIDE RECORDS SUMMARY | 2025-06-08 08:58 | XMS_ITS | Encounter Summary ---
Author Organization [employer] ([place], [place], [place], [place]) Address [address] [place] [address] Care Team Providers Care Lpn Name Role Phone Unavailable Primary Care Provider Unavailabl e Encounter Details Date Type Department Care Team (Late st Contact Info) Description 09/18/2021 Transcribed Document [facility] [place] Medicine [facility] [place] [address] ProviderTammi MD [address] [place] [address] Social History Tobacco Use Types [...] - Tammi ProviderMD - 09/18/2021 10:01 AM WASH BOX OPERATOR Consult Phone Call Documentation Entered On: 09/25/2021 16:32 EST Performed On: 09/18/2021 10:01 EST by Silvano Gonzalez, [facility] UN[facility] COORD Phone Call for Consults Date and Time Call Returned : 09/25/2021 16:32 EST Silvano Gonzalez [facility] - 09/25/2021 16:32 EST documented in this encounter Plan of Treatment Not on file documented as of this encounter Visit Diagnoses Not on filedocumented in this encounter
--- OUTSIDE RECORDS SUMMARY | 2025-06-08 08:58 | XMS_ITS | Encounter Summary ---
Author Organization [employer] ([place], [place], [place], [place]) Address [address] [place] [address] Care Team Providers Care Victim Witness Administrator Name Role Phone Unavailable Primary Care Provider Unavailabl e Encounter Details Date Type Department Care Team (Late st Contact Info) Description 09/27/2021 Transcribed Document [facility] Family Medicine [facility] [place] [address] ProviderTammi MD [address] [place] [address] Social History Tobacco Use Types [...] Tammi Lam MD - 09/27/2021 9:19 AM HEATER MECHANIC Patient: ZOHRA GUTIERREZ Age: 40 years Sex: Female : 1980 Associated Diagnoses: None Author: IVORY TALAMANTES PA-ERICK Basic Information Zohra uGtierrez is a 40-year-old female with [...] Radiology results Radiology Results (Last 48 hours) [id number] -- 09/25/2021 09:19 CR Chest 1 Vw [...]
--- OUTSIDE RECORDS SUMMARY | 2025-06-08 08:58 | XMS_ITS | Encounter Summary ---
Author Organization [employer] ([place], [place], [place], [place]) Address [address] [place] [address] Care Team Providers Care Tax Intern Name Role Phone Unavailable Primary Care Provider Unavailabl e Encounter Details Date Type Department Care Team (Late st Contact Info) Description 10/02/2021 Transcribed Document [facility] [place] [facility] [place] [address] ProviderTammi MD [address] [place] [address] Social History Tobacco Use Types [...] Tammi Lam MD - 10/02/2021 8:45 AM DYE MACHINE TENDER Patient Resource Center Entered On: 10/02/2021 8:47 EST Performed On: 10/02/2021 8:45 EST by Miguelina Cordero, PORTFOLIO ADMINISTRATOR Patient Resource Center Provider Status : EST Other Established Provider Name : Adam Beka Patient Phone Number : [phone] Patient Insurance Type : Commercial (ex. [place] PPO, [employer] HMO) Source of Referral : [...] at ED : Other Primary Language : Bermudian Patient Resource Center Comment : appts have been made, pt contacted Follow Up Needed : No Miguelina Cordero, PORTFOLIO ADMINISTRATOR - 10/02/2021 8:45 EST Electronically signed by [facility], [facility] Conversion Neck Fitter Cerner at 02/20/2023 6:59 AM CDT documented in this encounter Plan of Treatment Not on file documented as of this encounter Visit Diagnoses Not on filedocumented in this encounter
--- OUTSIDE RECORDS SUMMARY | 2025-06-08 08:58 | XMS_ITS | Encounter Summary ---
Author Organization [employer] ([place], [place], [place], [place]) Address [address] [place] [address] Care Team Providers Care Animal Nursery Worker Name Role Phone Unavailable Primary Care Provider Unavailabl e Encounter Details Date Type Department Care Team (Late st Contact Info) Description 09/26/2021 Transcribed Document [facility] [place] Medicine [facility] [place] [address] ProviderTammi MD [address] [place] [address] Social History Tobacco Use Types Packs/Day Years Used Date Smoking Tobacco: Never Assessed Comments Unknown Sex and Gender Information Value Date Recorded Sex Assigned at Not on file Legal Sex Female 5:43 PM CDT Gender Identity Not on file Sexual Orientation Not on file documented as of this encounter Miscellaneous Notes * [employer] Conversion Note - Tammi ProviderMD - 09/26/2021 10:37 AM FOOD WRITER Pain Assessment Entered On: 09/27/2021 0:37 EST [...]
--- OUTSIDE RECORDS SUMMARY | 2025-06-08 08:58 | XMS_ITS | Encounter Summary ---
Author Organization [employer] ([place], [place], [place], [place]) Address [address] [place] [address] Care Team Providers Care Sales Force Administrator Name Role Phone Unavailable Primary Care Provider Unavailabl e Encounter Details Date Type Department Care Team (Late st Contact Info) Description 09/29/2021 Transcribed Document [facility] [place] [address] ProviderTammi MD [address] [place] [address] Social History Tobacco Use Types Packs/Day Years Used Date Smoking Tobacco: Never Assessed Comments Unknown Sex and Gender Information Value Date Recorded Sex Assigned at Not on file Legal Sex Female 5:43 PM CDT Gender Identity Not on file Sexual Orientation Not on file documented as of this encounter Miscellaneous Notes * [employer] Conversion Note - Tammi ProviderMD - 09/29/2021 4:19 PM GASOLINE TRUCK OPERATOR Discharge Summary, PT Entered On: 09/29/2021 16:21 [...] PHYSICAL THERAPIST NON-EXEMPT - 09/29/2021 16:19 EST Care Home Goals Ambulation LTG Grid Goal #1 Device : None Distance : 375' Assist : Independent, complete Date to Meet : 10/11/2021 EST Goal Status : Progressing, continue Comment : 02 saturation >90% Patricio Rodríguez PHYSICAL THERAPIST NON-EXEMPT - 09/29/2021 16:19 EST documented in this encounter Plan of Treatment Not on file documented as of this encounter Visit Diagnoses Not on filedocumented in this encounter
--- OUTSIDE RECORDS SUMMARY | 2025-06-08 08:58 | XMS_ITS | Encounter Summary ---
Author Organization [employer] ([place], [place], [place], [place]) Address [address] [place] [address] Care Team Providers Care Spotter Name Role Phone Unavailable Primary Care Provider Unavailabl e Encounter Details Date Type Department Care Team (Late st Contact Info) Description 09/26/2021 Transcribed Document [facility] [place] [place] Family Medicine [facility] [place] [address] ProviderTammi MD [address] [place] [address] Social History Tobacco Use Types [...] - Tammi ProviderMD - 09/26/2021 4:31 PM ASSEMBLING MOTOR BUILDER Initial Discharge Planning Entered On: 09/26/2021 16:34 [...]
--- OUTSIDE RECORDS SUMMARY | 2025-06-08 08:58 | XMS_ITS | Encounter Summary ---
Author Organization [employer] ([place], [place], [place], [place]) Address [address] [place] [address] Care Team Providers Care Thread Laster Name Role Phone Unavailable Primary Care Provider Unavailabl e Encounter Details Date Type Department Care Team (Late st Contact Info) Description 09/29/2021 Transcribed Document [facility] [place] Family Medicine [address] [place] [address] ProviderTammi MD [address] [place] [address] Social History Tobacco Use Types [...] - Tammi ProviderMD - 09/29/2021 11:54 AM NONPROFIT MANAGER Nursing Discharge Summary Entered On: 09/29/2021 11:54 [...] 09/29/2021 11:54 EST Electronically signed by Saud [facility] Conversion Email Marketing Specialist Cerner at 02/20/2023 7:25 AM CDT documented in this encounter Plan of Treatment Not on file documented as of this encounter Visit Diagnoses Not on filedocumented in this encounter
--- OUTSIDE RECORDS SUMMARY | 2025-06-08 08:58 | XMS_ITS | Encounter Summary ---
Author Organization [employer] ([place], [place], [place], [place]) Address [address] [place] [address] Care Team Providers Care Paper Finisher Name Role Phone Unavailable Primary Care Provider Unavailabl e Encounter Details Date Type Department Care Team (Late st Contact Info) Description 09/29/2021 Transcribed Document [facility] [place] [facility] [place] [address] ProviderTammi MD [address] [place] [address] Social History Tobacco Use Types [...] Tammi Lam MD - 09/29/2021 8:31 AM IT BUSINESS PROCESS ARCHITECT Patient: ZOHRA GUTIERREZ Age: 40 years Sex: [...] Radiology results Radiology Results (Last 48 hours) [id number] -- 09/25/2021 09:19 CT Chest WO (09/27/2021 [...]
--- OUTSIDE RECORDS SUMMARY | 2025-06-08 08:58 | XMS_ITS | Encounter Summary ---
Author Organization [employer] ([place], [place], [place], [place]) Address [address] [place] [address] Care Team Providers Care Automobiles Salesperson Name Role Phone Unavailable Primary Care Provider Unavailabl e Encounter Details Date Type Department Care Team (Late st Contact Info) Description 09/28/2021 Transcribed Document [facility] [place] [facility] [place] [address] ProviderTammi MD [address] [place] [address] Social History Tobacco Use Types [...] Tammi Lam MD - 09/28/2021 7:50 AM CAD LIBRARIAN Patient: ZOHRA GUTIERREZ Age: 40 years Sex: [...] Radiology results Radiology Results (Last 48 hours) [id number] -- 09/25/2021 09:19 CT Chest WO (09/27/2021 [...] tomorrow Path pending Electronically signed by Saud, [facility] Conversion National Account Manager Cerner at 02/20/2023 7:23 AM CDT documented in this encounter Plan of Treatment Not on file documented as of this encounter Visit Diagnoses Not on filedocumented in this encounter
--- OUTSIDE RECORDS SUMMARY | 2025-06-08 08:58 | XMS_ITS | Encounter Summary ---
Author Organization Healthcare Address [address] [place] [address] Care Team Providers Care Sheet Rock Layer Name Role Phone Brandon Gautam MD Unavailable [phone] Angel Pond MD Primary Care Provider [phone] Reason for Visit * Reason Comments Med Refill Encounter Details Date Type Department Care Team (Late st Contact Info) Description 05/10/2025 Refill ID Clinic Medicine Specialties [address] [place] [address] Porsche Kilgore MD [address] [place] [address] High risk medication use (Primary Dx); 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) Social History Tobacco Use Types Packs/Day [...] encounter Miscellaneous Notes * Telephone Encounter - Gómez Hancock RN - 06/03/2025 8:54 AM EDT Called patient to see if she was able to get CBC drawn. No answer -- LVM x1. * Telephone Encounter - Gómez Hancock RN - 06/01/2025 10:02 AM EDT Results not available. Will allow patient a couple more days to get labs. Will f/u with patient on to allow a full week for patient to get labs completed. * Telephone Encounter - Gómez Hancock RN - 05/31/2025 10:46 AM EDT Fax request for CBC results sent to [facility] HIM Dept. Will monitor for results. * Telephone Encounter - Gómez Hancock RN - 05/26/2025 10:26 AM EDT No CBC since February 2025. Called patient and let her know that the facility did not draw her CBC with the CMP. I informed her that I re-faxed the lab order to [facility], and if they do not receive it to letme know and I will fax it again. Patient voiced understanding. She stated she will get it done tomorrow. She had no further questions/concerns at this time. * Telephone Encounter - Gómez Hancock RN - 05/25/2025 10:05 AM EDT CMP uploaded; CBC requested from [facility] HIM dept. * Telephone Encounter - Gómez Hancock RN - 05/24/2025 12:28 PM EDT Fax request sent to [facility] HIM Dept, fax # [phone] for lab results. * Telephone Encounter - Gómez Hancock RN - 05/19/2025 1:01 PM EDT Called patient to discuss the need for labs. Patient would like lab orders sent to [facility]. Lab orders faxed to [facility], fax # [phone]. Patient will get these completed this week.She had no further questions/concerns at this time. * Telephone Encounter - Gómez Hancock RN - 05/17/2025 11:07 AM EDT Called patient to discuss the need for labs. No answer -- LVM x1. * Telephone Encounter - Paz Santillan - [...] Description 06/30/2025 2:00 PM EDT Office Visit [facility] Sleep Disorder Center [address] [place] [id number] Brittany Oakes, MOTORBOAT MECHANIC HELPER [address] [place] [phone] 07/07/2025 9:00 AM EDT Consult Medical Office Building Urology [address] [facility], [address] [place] [address] Leonela Patterson, MOTORBOAT MECHANIC HELPER, DNP [address] [place] [address] 08/25/2025 10:00 AM EDT Office Visit [facility] Medicine Specialties [address] [place] [address] Porsche Kilgore MD [address] [place] [address] documented as of this encounter Visit Diagnoses Diagnosis High risk medication use- Primary Rheumatoid arthritis involving multiple sites with positive rheumatoid factor ([facility]) documented in this encounter Additional Health Concerns Assessment Noted Time PHQ-9 Depression Total Score: 3 01/21/20 25 11:43 AM EDT A fall risk assessment has been complete d for the patient 03/30/2025 1:41 PM EDT A Body Mass Index follow-up plan has been documented for the patient 03/30/2025 2:17 PM EDT documented as of this encounter Care Teams Sheet Rock Layer Relationship Specialty Start Date End Date Angel Pond MD [address] [facility] [address] [place] [address] PCP - General 09/11/22 Brandon Gautam MD [address] [facility] [address] [place] [address] Referring Physician 01/04/22 documented as of this encounter
--- OUTSIDE RECORDS SUMMARY | 2025-06-08 08:58 | XMS_ITS | Encounter Summary ---
Author Organization [employer] ([place], [place], [place], [place]) Address [address] [place] [address] Care Team Providers Care Vocational Psychologist Name Role Phone Unavailable Primary Care Provider Unavailabl e Encounter Details Date Type Department Care Team (Late st Contact Info) Description 09/27/2021 Transcribed Document [facility] [place] [facility] [place] [address] ProviderTammi MD [address] [place] [address] Social History Tobacco Use Types [...] - Tammi ProviderMD - 09/27/2021 2:00 AM EXTRACTOR PLANT OPERATOR Emergency Department Coordinator Details Entered On: 09/27/2021 2:53 EST Performed [...]
--- OUTSIDE RECORDS SUMMARY | 2025-06-08 08:58 | XMS_ITS | Encounter Summary ---
Author Organization [employer] ([place], [place], [place], [place]) Address [address] [place] [address] Care Team Providers Care Investment Fund Manager Name Role Phone Unavailable Primary Care Provider Unavailabl e Encounter Details Date Type Department Care Team (Late st Contact Info) Description 09/29/2021 Transcribed Document [facility] [place] Family Medicine [address] [place] [address] ProviderTammi MD [address] [place] [address] Social History Tobacco Use Types [...] - Tammi ProviderMD - 09/29/2021 5:00 AM FRONT OFFICE COORDINATOR Chart Check - Review Order Profile Entered On: 09/29/2021 5:12 EST Performed On: 09/29/2021 5:00 EST by Sirisha Roland RN Chart Check Powerplans Initiated/Discontinued as Appropriate : Yes All Active Orders Reviewed : Yes Sirisha Roland RN - 09/29/2021 5:12 EST Electronically signed by Saud [facility] Conversion Oral And Maxillofacial Pathologist Cerner at 02/20/2023 7:15 AM CDT documented in this encounter Plan of Treatment Not on file documented as of this encounter Visit Diagnoses Not on filedocumented in this encounter
--- OUTSIDE RECORDS SUMMARY | 2025-06-08 08:58 | XMS_ITS | Encounter Summary ---
Author Organization [employer] ([place], [place], [place], [place]) Address [address] [place] [address] Care Team Providers Care Driller Brake Lining Name Role Phone Unavailable Primary Care Provider Unavailabl e Encounter Details Date Type Department Care Team (Late st Contact Info) Description 09/26/2021 Transcribed Document [facility] [place] [facility] [place] [address] ProviderTammi MD [address] [place] [address] Social History Tobacco Use [...] - Historical ProviderMD - 09/26/2021 10:25 AM EXTERMINATOR Attempt to Treat, PT Entered On: 09/26/2021 10:34 EST Performed On: 09/26/2021 10:25 EST by MARTHA BO PT Attempt to Treat Unable to Treat Due To : Patient Unavailable Inability to Treat Comment : pt is off the floor for CT scan per Nsg. Will check back as time permits Notification : Discussed with NSG MARTHA BO, PT - 09/26/2021 10:33 EST Electronically signed by Saud [facility] Conversion Bacteriology Professor Cerner at 02/20/2023 7:22 AM CDT documented in this encounter Plan of Treatment Not on file documented as of this encounter Visit Diagnoses Not on filedocumented in this encounter
--- OUTSIDE RECORDS SUMMARY | 2025-06-08 08:58 | XMS_ITS | Encounter Summary ---
Author Organization [employer] ([place], [place], [place], [place]) Address [address] [place] [address] Care Team Providers Care Circuitry Negative Inspector Name Role Phone Unavailable Primary Care Provider Unavailabl e Encounter Details Date Type Department Care Team (Late st Contact Info) Description 09/29/2021 Transcribed Document [facility] [place] Medicine [address] [place] [address] ProviderTammi MD [address] [place] [address] Social History Tobacco Use Types Packs/Day Years Used Date Smoking Tobacco: Never Assessed Comments Unknown Sex and Gender Information Value Date Recorded Sex Assigned at Not on file Legal Sex Female 5:43 PM CDT Gender Identity Not on file Sexual Orientation Not on file documented as of this encounter Miscellaneous Notes * Cerner Conversion Note - Historical ProviderMD - 09/29/2021 9:28 AM JEEPER OPERATOR Stroke/Warfarin Instructions Entered On: 09/29/2021 9:28 EST Performed On: 09/29/2021 9:28 EST by Ivett Mckeon Virtual RN Stroke/Warfarin Instructions Stroke/TIA Discharge Ins : N/A Warfarin Discharge Ins : N/A Ivett Mckeon Virtual RN - 09/29/2021 9:28 EST Electronically signed by Saud [facility] Conversion Telephone Instrument Supervisor Cerner at 02/20/2023 7:23 AM CDT documented in this encounter Plan of Treatment Not on file documented as of this encounter Visit Diagnoses Not on filedocumented in this encounter
--- OUTSIDE RECORDS SUMMARY | 2025-06-08 08:58 | XMS_ITS | Encounter Summary ---
Author Organization [employer] ([place], [place], [place], [place]) Address [address] [place] [address] Care Team Providers Care Blending Plant Operator Name Role Phone Unavailable Primary Care Provider Unavailabl e Encounter Details Date Type Department Care Team (Late st Contact Info) Description 09/29/2021 Transcribed Document [facility] [place] [address] [place] [address] ProviderTammi MD [address] [place] [address] Social History Tobacco Use Types [...] Tammi Lam MD - 09/29/2021 9:26 AM CAST SHELL GRINDER Patient Education Materials Follows:Disease Mycobacterium Avium Complex [...] these instructions at home: Medicines ??? Take dpcb-nlt-rywxzoc and prescription medicines only as told by your health care provider. ??? Take your antibiotic medicine as told by your health care provider. Do not stop taking the antibiotic even if you start to feel better. Eating and drinking ??? Eat a healthy, well-balanced diet. Talk with your health care provider or a diet and marketing production specialist (dietitian) about what food choices are [...] and water are not available, use hand filtration operator. ??? Practice safe food preparation, especially if [...] provider. Document Revised: 04/27/2019 Document Reviewed: 11/28/2018 [employer]pie Patient Education ? 2020 [employer]. Pulmonary Medicine Video-Assisted Thoracic Surgery, Care After [...] cuts from surgery (incisions). Medicines ??? Take tlpc-hiw-ttizavj or prescription medicines only as told by [...] keep your pee pale yellow. ? Take dooc-zzd-mlkwntj or prescription medicines. ? Eat foods that [...] cannot use soap and water, use hand filtration operator. ? Change your bandage as told by [...] Reviewed: 10/21/2020 Elsevier Patient Education ? 2020 [employer] documented in this encounter Plan of Treatment Not on file documented as of this encounter Visit Diagnoses Not on filedocumented in this encounter
--- OUTSIDE RECORDS SUMMARY | 2025-06-08 08:58 | XMS_ITS | Encounter Summary ---
Author Organization [employer] ([place], [place], [place], [place]) Address [address] [place] [address] Care Team Providers Care Pulverizer Feeder Name Role Phone Unavailable Primary Care Provider Unavailabl e Encounter Details Date Type Department Care Team (Late st Contact Info) Description 09/29/2021 Transcribed Document [facility] [place] [address] ProviderTammi MD [address] [place] [address] Social History Tobacco Use Types [...] Tammi Lam MD - 09/29/2021 11:40 AM CLINIC SUPERVISOR [facility] [place] [address] ZOHRA GUTIERREZ :1980 Visit Time:09/25/2021 Your Visit Summary Your Care Team Admitting Physician - KEITH WADDELL MD-CAT Attending Physician - KEITH WADDELL MD-CAT Primary Care Physician - TROY CALVILLO MD-[facility] Referring Physician - JACQUELINE, NOT LISTED Your [...] [facility] their phone number is [phone]. Someone will deliver a portable tank to [...] Bring discharge instructions with you. Where: [address] [facility] [address] [place] [address]- Follow Up with TROY CALVILLO MD-[facility] When Within 5 to 7 days Comments PCP follow up. Call for follow up appointment after the holiday. Bring discharge instructions with you. Where: [address] [place] [address]- Medications What How Much When Instructions Next [...] these instructions at home: Medicines ??? Take ukyp-agr-plhbgfm and prescription medicines only as told by your health care provider. ??? Take your antibiotic medicine as told by your health care provider. Do not stop taking the antibiotic even if you start to feel better. Eating and drinking ??? Eat a healthy, well-balanced diet. Talk with your health care provider or a diet and crop nutrition scientist (dietitian) about what food choices are best [...] and water are not available, use hand band machine operator. ??? Practice safe food preparation, especially [...] provider. Document Revised: 04/27/2019 Document Reviewed: 11/28/2018 ElseHealth Global Connect Patient Education ?? 2020 [employer]. Video-Assisted Thoracic Surgery, Care After This [...] cuts from surgery (incisions). Medicines ??? Take xqna-xkc-wxjyibi or prescription medicines only as told by [...] keep your pee pale yellow. ? Take fyne-gsv-jvtvkwb or prescription medicines. ? Eat foods that [...] cannot use soap and water, use hand band machine operator. ? Change your bandage as told [...] provider. Document Revised: 10/21/2020 Document Reviewed: 10/21/2020 [employer] Technologies Patient Education ?? 2020 [employer]. acetaminophen and oxycodone (a SEET a [...] may report side effects to FDA at 0-112-KOM-8118. What other drugs will affect acetaminophen and [...] affect acetaminophen and oxycodone, including prescription and tuve-sfd-zudutid medicines, vitamins, and herbal products. Not all [...] to ensure that the information provided by [employer]. ('Multum') is accurate, up-to-date, and complete, but no guarantee is made to that effect. Drug information contained herein may be time sensitive. [employer] information has been compiled for use by healthcare practitioners and consumers in the [place] and therefore [employer] does not warrant that uses outside of the [place] are appropriate, unless specifically indicated otherwise. [employer] drug information does not endorse drugs, diagnose patients or recommend therapy. [employer] drug information is an informational resource designed [...] effective or appropriate for any given patient. [employer] does not assume any responsibility for any aspect of healthcare administered with the aid of information [employer] provides. The information contained herein is not intended to cover all possible uses, directions, precautions, warnings, drug interactions, allergic reactions, or adverse effects. If you have questions about the drugs you are taking, check with your doctor, nurse or pharmacist. Copyright 3227-5956 [employer]. Version: 20.03. Revision Date: 12/09/2020. Emergency Awareness [...] Assistance with quitting is available by contacting 2-445-IFKH-NOW. This is a free resource providing counseling, [...] range between ( 0.0 and 7.0 ) Schleicher #: 0.50 K/uL -- Normal range between ( 0.16 and 1.00 ) Eos #: 0.29 -- Normal range between ( 0.00 and 5.00 ) Schleicher %: 5.8 % -- Normal range between [...] was given the opportunity to ask questions. Patient/Commercial Estimator Name: Patient/Commercial Estimator Signature: Relationship to Patient: Clinician/Hospital Commercial Estimator Signature: Date: Electronically signed by Saud, [facility] Conversion Cyber Security Cerner at 02/20/2023 7:22 AM CDT documented in this encounter Plan of Treatment Not on file documented as of this encounter Visit Diagnoses Not on filedocumented in this encounter
--- OUTSIDE RECORDS SUMMARY | 2025-06-08 08:58 | XMS_ITS | Encounter Summary ---
Author Organization [employer] ([place], [place], [place], [place]) Address [address] [place] [address] Care Team Providers Care General Operations Agent Name Role Phone Unavailable Primary Care Provider Unavailabl e Encounter Details Date Type Department Care Team (Late st Contact Info) Description 09/27/2021 Transcribed Document [facility] [place] [facility] [place] [address] ProviderTammi MD [address] [place] [address] Social History Tobacco Use Types Packs/Day Years Used Date Smoking Tobacco: Never Assessed Comments Unknown Sex and Gender Information Value Date Recorded Sex Assigned at Not on file Legal Sex Female 5:43 PM CDT Gender Identity Not on file Sexual Orientation Not on file documented as of this encounter Miscellaneous Notes * Cerner Conversion Note - Tammi ProviderMD - 09/27/2021 3:23 PM RN RESIDENTIAL Pain Assessment Entered On: 09/28/2021 7:22 EST [...] form. Electronically signed by Raheem Villavicencio Conversion Railway Track Plant Operator Marian at 02/22/2023 9:24 AM CDT documented in this encounter Plan of Treatment Not on file documented as of this encounter Visit Diagnoses Not on filedocumented in this encounter
--- OUTSIDE RECORDS SUMMARY | 2025-06-08 08:58 | XMS_ITS | Encounter Summary ---
Author Organization [employer] ([place], [place], [place], [place]) Address [address] [place] [address] Care Team Providers Care Urban Sociologist Name Role Phone Unavailable Primary Care Provider Unavailabl e Encounter Details Date Type Department Care Team (Late st Contact Info) Description 09/27/2021 Transcribed Document [facility] [place] Family Medicine [facility] [place] [address] ProviderTammi MD [address] [place] [address] Social History Tobacco Use Types Packs/Day Years Used Date Smoking Tobacco: Never Assessed Comments Unknown Sex and Gender Information Value Date Recorded Sex Assigned at Not on file Legal Sex Female 5:43 PM CDT Gender Identity Not on file Sexual Orientation Not on file documented as of this encounter Miscellaneous Notes * Cerner Conversion Note - Tammi ProviderMD - 09/27/2021 5:05 PM BIOINFORMATICS RESEARCH TECHNICIAN On Going Discharge Planning Entered On: 09/27/2021 [...] CM will continue to follow. ROBERTO JEFFRIES, Charter And Tour Bus Driver - 09/27/2021 17:05 EST Electronically signed by Saud [facility] Conversion Bookbinder Chief Cerner at 02/20/2023 7:25 AM CDT documented in this encounter Plan of Treatment Not on file documented as of this encounter Visit Diagnoses Not on filedocumented in this encounter
--- OUTSIDE RECORDS SUMMARY | 2025-06-08 08:58 | XMS_ITS | Encounter Summary ---
Author Organization [employer] ([place], [place], [place], [place]) Address [address] [place] [address] Care Team Providers Care J2Ee Application Developer Name Role Phone Unavailable Primary Care Provider Unavailabl e Encounter Details Date Type Department Care Team (Late st Contact Info) Description 09/27/2021 Transcribed Document [facility] [place] [facility] [place] [address] ProviderTammi MD [address] [place] [address] Social History Tobacco Use [...] - Tammi ProviderMD - 09/27/2021 7:23 AM LAWN CARETAKER UM Authorization Entered On: 09/27/2021 7:25 EST Performed On: 09/27/2021 7:23 EST by Mary Mae, Clipper Automatic Primary Insurance Authorization Authorization and Policy Numbers : Insurance 1 Health Plan: [facility] Policy Number: [id number] Authorization Number: [id number] Insurance Primary Name : Meme [id number] Authorization Status-Primary : Apprv contin stay Authorization Number-Primary : [id number] Number of Days Authorized-Primary : 2 Day(s) Authorized Service Begin Date-Primary : 09/25/2021 EST Authorized Service End Date-Primary : 09/27/2021 EST Authorization Comments-Primary : Continued stay authorized per fax 09/27/21 @ 0112. Total days approved x3. Historical Authorization Comments-Primary : Comment 1: Clinicals faxed via Marian (VIJAY MASON Rn-Utilization Review 09/26/2021 09:35) Comment 2: [place] approved per [facility] note for 1 day inpt (SARITHA BARNES, RN-Utilization Review 09/20/2021 13:51) Comment 3: per [facility] [place] inpt auth is PENDING (MARGARITA LUGO, Lens Generating Machine Tender 09/19/2021 12:53) Mary Mae, Clipper Automatic - 09/27/2021 7:23 EST Electronically signed by [facility], [facility] Conversion Clinic Office Coordinator Cerner at 02/20/2023 7:20 AM CDT documented in this encounter Plan of Treatment Not on file documented as of this encounter Visit Diagnoses Not on filedocumented in this encounter
--- OUTSIDE RECORDS SUMMARY | 2025-06-08 08:58 | XMS_ITS | Encounter Summary ---
Author Organization [employer] ([place], [place], [place], [place]) Address [address] [place] [address] Care Team Providers Care Director Fundraising Name Role Phone Unavailable Primary Care Provider Unavailabl e Encounter Details Date Type Department Care Team (Late st Contact Info) Description 09/28/2021 Transcribed Document [facility] [place] [address] ProviderTammi MD [address] [place], [place] [...] - Tammi ProviderMD - 09/28/2021 5:00 PM DULSER Chart Check - Review Order Profile Entered On: 09/28/2021 18:12 EST Performed On: 09/28/2021 17:00 EST by JEREMY SALES RN Chart Check All Active Orders Reviewed : Yes JEREMY SALES RN - 09/28/2021 18:12 EST Electronically signed by Raheem Villavicencio Conversion Computer Information Systems Instructor Cerner at 02/20/2023 7:05 AM CDT documented in this encounter Plan of Treatment Not on file documented as of this encounter Visit Diagnoses Not on filedocumented in this encounter
--- OUTSIDE RECORDS SUMMARY | 2025-06-08 08:58 | XMS_ITS | Encounter Summary ---
Author Organization [employer] ([place], [place], [place], [place]) Address [address] [place] [address] Care Team Providers Care Mechanical Assembler Name Role Phone Unavailable Primary Care Provider Unavailabl e Encounter Details Date Type Department Care Team (Late st Contact Info) Description 09/29/2021 Transcribed Document [facility] [place] [facility] [place] [address] ProviderTammi MD [address] [place] [address] Social History Tobacco Use Types [...] - Tammi ProviderMD - 09/29/2021 2:00 AM GREENHOUSE STAFF Boiler Fireman Details Entered On: 09/29/2021 2:03 EST Performed [...]
--- OUTSIDE RECORDS SUMMARY | 2025-06-08 08:58 | XMS_ITS | Encounter Summary ---
Author Organization [employer] ([place], [place], [place], [place]) Address [address] [place] [address] Care Team Providers Care Drywall Stripper Name Role Phone Unavailable Primary Care Provider Unavailabl e Encounter Details Date Type Department Care Team (Late st Contact Info) Description 09/27/2021 Transcribed Document [facility] [place] [facility] [place] [address] ProviderTammi MD [address] [place] [address] Social History Tobacco Use Types Packs/Day Years Used Date Smoking Tobacco: Never Assessed Comments Unknown Sex and Gender Information Value Date Recorded Sex Assigned at Not on file Legal Sex Female 5:43 PM CDT Gender Identity Not on file Sexual Orientation Not on file documented as of this encounter Miscellaneous Notes * Cerner Conversion Note - Tammi ProviderMD - 09/27/2021 3:51 PM WALL AND FLOOR TILER Treatment Intervention, PT Entered On: 09/28/2021 14:45 [...] Treatment Time : 10 Minute(s) [facility]UL[facility] 09/28/2021 14:38 EST Functional Mobility Mobility Grid Supine to Sit : Supervision/set-up Sit to Stand : Supervision/set-up Stand to Sit : Supervision/set-up [facility] 09/28/2021 14:38 EST Gait Training/Assessment, PT Weight Bearing Status : Full Gait Assistance Level : Supervision Walking Distance : 120' Ambulatory Devices : None, Gait belt Left Lower Gait Deviation : Nahomy, decreased, Step length, decreased Right Lower Gait Deviation : Nahomy, decreased, Step length, decreased [facility] 09/28/2021 14:38 EST Cognitive Treatment, PT Orientation : Oriented x [address] [facility] 09/28/2021 14:38 EST Edu Topics Physical Therapy Education Grid Bed Mobility Training : Needs further teaching Gait Training : Needs further teaching Role of Physical Therapy : Verbalizes understanding Safety : Needs further teaching Transfer Training : Needs further teaching [facility] 09/28/2021 14:38 EST Indication Assesessment, PT Physical Therapy Indicated : Yes [facility]UL[facility] 09/28/2021 14:38 EST Plan of Care, PT PT Tx Plan/Goals Established w Patient : Yes [facility] 09/28/2021 14:38 EST Short Term Goals Mobility/Bed Mobility STG PT Grid Goal #1 Goal #2 Activity : Supine to sit Sit to stand Assist : Independent, complete Independent, complete Date to Meet : 10/04/2021 EST 10/04/2021 EST Goal Status : Progressing, continue Progressing, continue [facility] 09/28/2021 14:[address] [facility] 09/28/2021 14:38 EST Ambulation STG Grid Goal #1 Device : None Distance : 100' Assist : Supervision or set-up Date to Meet : 10/04/2021 EST Goal Status : Progressing, continue Comment : 02 saturation >90% [facility]LL[facility]AN[facility] 09/28/2021 14:38 EST Ict Security Specialist Goals Ambulation LTG Grid Goal #1 Device [...] LULA HANNA PTA - 09/28/2021 14:38 EST [place] PT Charges ASSISTANT INFANT TODDLER TEACHER PT Therap. Exercise 15 min-ASSISTANT INFANT TODDLER TEACHER : 1 LULA HANNA PTA - 09/28/2021 14:38 EST Electronically signed by Raheem Villavicencio Conversion Senior Education Specialist Cerner at 02/20/2023 7:19 AM CDT documented in this encounter Plan of Treatment Not on file documented as of this encounter Visit Diagnoses Not on filedocumented in this encounter
--- OUTSIDE RECORDS SUMMARY | 2025-06-08 08:58 | XMS_ITS | Encounter Summary ---
Author Organization [employer] ([place], [place], [place], [place]) Address [address] [place] [address] Care Team Providers Care Certified Health Education Specialist Name Role Phone Unavailable Primary Care Provider Unavailabl e Encounter Details Date Type Department Care Team (Late st Contact Info) Description 09/27/2021 Transcribed Document [facility] [place] Family Medicine [facility] [place] [address] ProviderTammi MD [address] [place] [address] Social History Tobacco Use Types [...] - Tammi ProviderMD - 09/27/2021 5:00 AM SLUDGE FILTRATION OPERATOR Chart Check - Review Order Profile [...]
--- OUTSIDE RECORDS SUMMARY | 2025-06-08 08:58 | XMS_ITS | Encounter Summary ---
Author Organization [employer] ([place], [place], [place], [place]) Address [address] [place] [address] Care Team Providers Care Water Resource Engineer Name Role Phone Unavailable Primary Care Provider Unavailabl e Encounter Details Date Type Department Care Team (Late st Contact Info) Description 09/26/2021 Transcribed Document [facility] [place] [facility] [place] [address] ProviderTammi MD [address] [place] [address] Social History Tobacco Use Types [...] - Tammi ProviderMD - 09/26/2021 9:35 AM STRESS ANALYST UM Authorization Entered On: 09/26/2021 9:35 EST Performed On: 09/26/2021 9:35 EST by VIJAY MASON Rn-Utilization Review Primary Insurance Authorization Authorization and Policy Numbers : Insurance 1 Health Plan: [facility] Policy Number: [id number] Authorization Number: [id number] Insurance Primary Name : Meme [id number] Authorization Status-Primary : Awaiting callback Authorization Number-Primary : [id number] Number of Days Authorized-Primary : 0 Day(s) Authorized Service Begin Date-Primary : 09/25/2021 EST Authorized Service End Date-Primary : 09/25/2021 EST Authorization Comments-Primary : Clinicals faxed via Marian Historical Authorization Comments-Primary : Comment 1: Meme approved per Star note for 1 day inpt (SARITHA BARNES RN-Utilization Review 09/20/2021 13:51) Comment 2: per STAR Meme inpt auth is PENDING (MARGARITA LUGO, Geodetic Technician 09/19/2021 12:53) VIJAY MASON Rn-Utilization Review - 09/26/2021 9:35 EST documented in this encounter Plan of Treatment Not on file documented as of this encounter Visit Diagnoses Not on filedocumented in this encounter
--- OUTSIDE RECORDS SUMMARY | 2025-06-08 08:58 | XMS_ITS | Encounter Summary ---
Author Organization Healthcare Address [address] 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 Question Answer Date of Assessment Author Little interest or pleasure in doing things Not at all 01/20/2025 11:43 AM Tom Myles Feeling down, depressed, or hopeless Not at all 01/20/2025 11:43 AM Tom Myles Patient Health Questionnaire-2 Score 0 01/20/2025 11:43 AM Omega Myles * Question Answer Date of Assessment Author Trouble falling or staying asleep, or sleeping too much Not at all 01/20/2025 11:43 AM Meli Myles Feeling tired or having little energy More than half the days 01/20/2025 11:43 AM Meli Myles Poor appetite or overeating Several days 01/20/2025 11:43 AM Meli Myles Feeling bad about yourself - or that you are a failure or have let yourself or your family down Not at all 01/20/2025 11:43 AM Meli Myles Trouble concentrating on things, such as reading the newspaper or watching television Not at all 01/20/2025 11:43 AM Meli Myles Moving or speaking so slowly that other people could have noticed? Or the opposite - being so fidgety or restless that you have been moving around a lot more than usual. Not at all 01/20/2025 11:43 AM Meli Myles Thoughts that you would be better off or hurting yourself in some way Not at all 01/20/2025 11:43 AM Meli Myles Patient Health Questionnaire-9 Score 3 01/20/2025 11:43 AM Meli Myles * Calculated C-SSRS Risk Score (Lifetime/Recent) Answer Date of Assessment Author No Risk Indicated 03/31/2024 10:56 AM Natasha Baird * If you checked off any problems on this questionnaire so far, Question Answer Date of Assessment Author How difficult have these problems made it for you to do your work, take care of things at home, or get along with other people? Somewhat difficult 01/20/2025 11:43 AM EDT Tom Lambert in R * Question Answer Date of Assessment Author 1. Wish to be (Past 1 Month) No 024 10:56 AM EDT Natasha Cottrell 2. Non-Specific Active Suici shalonda Thoughts (Past 1 Month) No 03/31/2024 10:56 AM EDT Carol Cottrell 6. Suicidal Behavior (Lifetime) No 10:56 AM EDT Natasha Cottrell documented as of this encounter Miscellaneous Notes * Addendum Note - Candice Hancock RN - 05/25/2025 7:33 AM EDTAddended by: CANDICE HANCOCK on: 05/25/2025 07:33 AM Modules accepted: Orders * Telephone Encounter - Candice Jimenez RN - 02/24/2024 8:47 AM EDT Fax request for lab results sent to [facility] Dept at fax # [phone]. Will monitor for results. * Telephone Encounter - Candice Jimenez RN - 02/17/2024 8:31 AM EDT Called patient to inform her of the need for labs. Patient voiced understanding and would like to get her labs completed at [facility]. Lab orders faxed to [phone]. documented in this encounter Plan of Treatment Upcoming Encounters Date Type Department Care Team (Late st Contact Info) Description 06/30/2025 2:00 PM EDT Office Visit [facility] [address] [place] [address] Brittany Oakes, GILL [address] [place] [phone] 07/07/2025 9:00 AM EDT Consult Medical Office Building Urology [address] [facility], [address] [place] [address] Leonela Patterson, MACHINE BINDER STRIPPER, DNP [address] [place] [address] 08/25/2025 10:00 AM EDT [facility] [address] [place] [address] Porsche Kilgore MD [address] [place] [address] Scheduled Orders Name Type Priority Associated Diagnoses Orde r Schedule CBC and differential Lab Routine High risk medication use every 3 months for 6 Occurrences starting 02/17/2024 until 08/18/2025 Comprehensive metabolic panel Lab Routine High risk medication use every 3 months for 6 Occurrences starting 05/25/2025 until 08/18/2025, 1 completed documented as of this encounter Results * Comprehensive metabolic panel (05/25/2025 7:34 AM EDT) Blood Venous blood specimen / Unknown us Porsche Kilgore MD LAB BLOOD ORDERABLES Final Re sult EXTERNAL LAB documented in this encounter Visit Diagnoses Diagnosis High risk medication use- Primary 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) documented in this encounter Additional Health Concerns Assessment Noted Time A fall risk assessment has been complete d for the patient 11/11/2023 3:35 PM EST A Body Mass Index follow-up plan has been documented for the patient 11/11/2023 4:06 PM EST documented as of this encounter Care Teams Program Development Manager Relationship Specialty Start Date End Date nAgel Pond MD [address] [place] [address] [address] [place] [id number] PCP - General 09/11/22 Brandon Gautam MD [address] [facility] [address] [facility] [place] [address] Referring Physician 01/04/22 documented as of this encounter
--- OUTSIDE RECORDS SUMMARY | 2025-06-08 08:58 | XMS_ITS | Encounter Summary ---
Author Organization [employer] ([place], [place], [place], [place]) Address [address] [place] [address] Care Team Providers Care Energy Conservation Specialist Name Role Phone Unavailable Primary Care Provider Unavailabl e Encounter Details Date Type Department Care Team (Late st Contact Info) Description 09/18/2021 Transcribed Document [facility] [place] Family Medicine [facility] [place] [address] ProviderTammi MD [address] [place] [address] Social History Tobacco Use Types Packs/Day Years Used Date Smoking Tobacco: Never Assessed Comments Unknown Sex and Gender Information Value Date Recorded Sex Assigned at Not on file Legal Sex Female 5:43 PM CDT Gender Identity Not on file Sexual Orientation Not on file documented as of this encounter Miscellaneous Notes * Cerner Conversion Note - Tammi ProviderMD - 09/18/2021 9:50 AM WORK DISTRIBUTOR PAT Adult Entered On: 09/18/2021 9:52 EST [...] Source : Measured Height Entry Format : Sawyer Height, Feet : 0 ft(Converted to: 0 cm, 0 Inch) Height, Inches : 64 Inch(Converted to: 5 ft 4 Inch, 162.56 cm) Clinical Height : 162.56 cm Weight Source : Standing scale Weight Entry Format : Sawyer Clinical Dosing Weight : 74.57 kg Weight, Pounds : 164 lb Weight, Ounces : 1 oz Body Surface Area (BSA) : 1.8 m2 Body Mass Index : 28.2 kg/m2 (HI) [place] Body Weight : 54 kg REMEDIOS BETHEA [...] REMEDIOS BETHEA RN - 09/18/2021 10:05 EST [place] Suicide Severity Rating Scale (C-SSRS) CSSRS Past [...] Obtained From : Patient Primary Language : Sri Lankan Preferred Communication Mode : Verbal Communication Barrier : None Bender Machine Needed : No Status : Hysterectomy REMEDIOS [...]
--- OUTSIDE RECORDS SUMMARY | 2025-06-08 08:58 | XMS_ITS | Encounter Summary ---
Author Organization [employer] ([place], [place], [place], [place]) Address [address] [place] [address] Care Team Providers Care School Counsellor Name Role Phone Unavailable Primary Care Provider Unavailabl e Encounter Details Date Type Department Care Team (Late st Contact Info) Description 10/03/2021 Transcribed Document [facility] [place] Family Medicine [facility] [place] [address] ProviderTammi MD [address] [place] [address] Social History Tobacco Use Types [...] Tammi Lam MD - 10/03/2021 2:56 PM DIRECTOR MACHINE UM Authorization Entered On: 10/03/2021 14:56 EST Performed On: 10/03/2021 14:56 EST by SARITHA BARNES RN-Utilization Review Primary Insurance Authorization Authorization and Policy Numbers : Insurance 1 Health Plan: [facility] Policy Number: [id number] Authorization Number: [id number] Insurance Primary Name : [facility] Policy Number: [id number] Authorization Status-Primary : Awaiting callback Auth/Referral Contact Name-Primary : DC Authorization Number-Primary : [id number] Number of Days Authorized-Primary : 2 Day(s) Authorized Service Begin Date-Primary : 09/25/2021 EST Authorized Service End Date-Primary : 09/27/2021 EST Authorization Comments-Primary : [place] per avaliliradha still shows approved for 3 days Historical Authorization Comments-Primary : Comment 1: Discharge date and summary as well as continued stay clinical 09/28 - discharge faxed. (Mary Mae, Mail Machine Operator 10/02/2021 14:33) Comment 2: Clinicals faxed via [employer] for 09/26-09/27. (VIJAY MASON, Rn-Utilization Review 09/27/2021 12:03) Comment 3: Continued stay authorized per fax 09/27/21 @ 0112. Total days approved x3. (Mary Mae, Mail Machine Operator 09/27/2021 07:23) Comment 4: Clinicals faxed via [employer] (VIJAY MASON, Rn-Utilization Review 09/26/2021 09:35) Comment 5: [place] approved per Star note for 1 day inpt (SARITHA BARNES, RN-Utilization Review 09/20/2021 13:51) Comment 6: per STAR [place] inpt auth is PENDING (MARGARITA LUGO, Twill Cutter 09/19/2021 12:53) SARITHA BARNES RN-Utilization Review - 10/03/2021 14:56 EST Electronically signed by Raheem Villavicencio Conversion Human Resources Project Manager Cerner at 02/20/2023 7:18 AM CDT documented in this encounter Plan of Treatment Not on file documented as of this encounter Visit Diagnoses Not on filedocumented in this encounter
--- OUTSIDE RECORDS SUMMARY | 2025-06-08 08:58 | XMS_ITS | Encounter Summary ---
Author Organization [employer] ([place], [place], [place], [place]) Address [address] [place] [address] Care Team Providers Care Tank Bottom Assembler Name Role Phone Unavailable Primary Care Provider Unavailabl e Encounter Details Date Type Department Care Team (Late st Contact Info) Description 09/26/2021 Transcribed Document [facility] [place] Family Medicine [facility] [place] [address] ProviderTammi MD [address] [place] [address] Social History Tobacco Use Types [...] - Tammi ProviderMD - 09/26/2021 2:00 AM WOODWORKING SHOP HAND Commissioner Of Relocation Services Details Entered On: 09/26/2021 3:13 EST Performed [...]
--- OUTSIDE RECORDS SUMMARY | 2025-06-08 08:58 | XMS_ITS | Encounter Summary ---
Author Organization [employer] ([place], [place], [place], [place]) Address [address] [place] [address] Care Team Providers Care Forensic Computer Examiner Name Role Phone Unavailable Primary Care Provider Unavailabl e Encounter Details Date Type Department Care Team (Late st Contact Info) Description 09/27/2021 Transcribed Document [facility] [place] [facility] [place] [address] ProviderTammi MD [address] [place] [address] Social History Tobacco Use Types [...] - Tammi ProviderMD - 09/27/2021 5:00 PM WELDING MACHINE OPERATOR GAS Chart Check - Review Order Profile Entered [...]
--- OUTSIDE RECORDS SUMMARY | 2025-06-08 08:58 | XMS_ITS | Clinical Summary ---
Author Organization [facility] Address [address] [place] [address] Care Team Providers Care Manager Environmental Affairs Name Role Phone Brandon Gautam MD Unavailable [phone] Angel Pond MD Primary Care Provider [phone] Allergies Active Allergy Reactions Criticality Noted Date [...] High risk medication use 02/15/2022 Overview (02/15/2022): [place] [facility] shelter current use of immunosuppressive drug 01/24/2022 Hx [...] Encounters Date Type Department Care Team Description 05/25/2025 Results Follow-Up [facility] Medicine Specialties [address] [place] [address] Porsche Kilgore MD 05/25/2025 Orders Only [facility] Medicine Specialties [address], [address] [place] [address] Gómez Hancock RN High risk medication use 05/10/2025 Refill [facility] Medicine Specialties [address], 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 Sleep Disorder Center [address]th [place] [address] Brittany Oakes APRN [place] (obstructive sleep apnea) (Primary Dx) 03/30/2025 Travel 03/22/2025 Telephone [facility] [address] [place] [address] Natasha Hernandez I, RN Records (Records-bladder stimulator insertion 2019); Rcvd Records from Last 3 Months Immunizations Immunization [...] Description 06/30/2025 2:00 PM EDT Office Visit [facility] Sleep Disorder Center [address] [place] [address] Brittany Oakes APRN [address] [place] [address] 07/07/2025 9:00 AM EDT Consult Medical Office Building Urology [address], [address] [place] [address] Leonela Patterson APRN, DNP [address] [place] [address] 08/25/2025 10:00 AM EDT [facility] [address] [place] [address] Porsche Kilgore MD [address] [place] [address] Health Maintenance Due Date Last Done Comments [...] Discontinued 01/02/2022 [facility]-Hepatitis C Screening Completed 01/11/2022 USX-[id number] Vaccine Completed 08/05/2024, 08/31/2022, 10/13/2021, Additional history [...] this topic Medical Devices Implanted Type Area Collections Representative Device Identifier Shelf Expiration Date Model / Serial / Lot Surescan Interstim 2 Stimulator- Implanted:Qty: 1 on 10/31/2020 Implant Right: Hip Medtronic [id number] / [id number] / Procedures Procedure Name Priority Date/Time Associated Diagnosis Comments COMPREHENSIVE METABOLIC PANEL, PLASMA Routine 05/25/2025 7:34 AM EDT High risk medication use HEPATITIS C ANTIBODY W/REFLEX TO HCV QUANT PCR STAT 01/11/2022 4:41 PM EST HEMOGLOBIN A1C Routine 01/02/2022 9:40 AM EST from Last 3 Months or Most Recently Relevant to Health Maintenance Results * Comprehensive metabolic panel (05/25/2025 7:34 AM EDT) Blood Venous blood specimen / Unknown Porsche Kilgore MD LAB BLOOD ORDERABLES Final Re sult EXTERNAL LAB * Hepatitis C Antibody (01/11/2022 4:41 PM EST) Hepatitis C Antibody Negative Negative 01/11/2022 6:40 PM EST [facility] Blood Venous blood specimen / Unknown Venipuncture / Unknown 01/11/2022 4:41 PM EST 01/11/2022 5:02 PM EST Casey Raygoza MD LAB BLOOD ORDERABLES Final Res ult Performing Organization Address [facility] Co de Phone Number [facility] [address] [place] [address] * (ABNORMAL) Hemoglobin A1c (01/02/2022 9:40 AM EST) Hemoglobin A1c 5.8(H) <5.7 % 01/02/2022 10:55 AM EST [facility] Blood Venous blood specimen / Unknown Venipuncture / Unknown 01/02/2022 9:40 AM EST 01/02/2022 10:19 AM EST Aleja Bowman APRN LAB BLOOD ORDERABLES Final Res ult Performing Organization Address City/[facility] Co de Phone Number [facility] [address] [place] [address] from Last 3 Months or Most Recently Relevant to Health Maintenance Insurance ANTHEM Advance Directives * Full Code (Latest Code Status on File) Date Activated Date Inactivated Comments 01/01/2022 11:58 PM 01/11/2022 8:21 PM Question Answer Comments Patient has decision-making capacity? Yes Care Teams Manager Environmental Affairs Relationship Specialty Start Date End Date Angel Pond MD [address] [place] [address] [address] [place] [address] PCP - General 09/11/22 Brandon Gautam MD [address] [id number] Referring Physician 01/04/22
--- OUTSIDE RECORDS SUMMARY | 2025-06-08 08:58 | XMS_ITS | Encounter Summary ---
Author Organization [employer] ([place], [place], [place], [place]) Address [address] [place] [address] Care Team Providers Care Journeyman Wireman Name Role Phone Unavailable Primary Care Provider Unavailabl e Encounter Details Date Type Department Care Team (Late st Contact Info) Description 09/28/2021 Transcribed Document [facility] [place] [facility] [place] [address] ProviderTammi MD [address] [place] [address] Social History Tobacco Use Types Packs/Day Years Used Date Smoking Tobacco: Never Assessed Comments Unknown Sex and Gender Information Value Date Recorded Sex Assigned at Not on file Legal Sex Female 5:43 PM CDT Gender Identity Not on file Sexual Orientation Not on file documented as of this encounter Miscellaneous Notes * Cerner Conversion Note - Tammi ProviderMD - 09/28/2021 1:09 PM DAIRY CONSULTANT On Going Discharge Planning Entered On: 09/28/2021 [...] CM will continue to follow. ROBERTO JEFFRIES, It Systems Engineer - 09/27/21 17:11:11 ROBERTO JEFFRIES It Systems Engineer - 09/28/2021 13:09 EST Electronically signed by Raheem Villavicencio Conversion Rvda Master Certified Rv Technician Cerner at 02/20/2023 7:21 AM CDT documented in this encounter Plan of Treatment Not on file documented as of this encounter Visit Diagnoses Not on filedocumented in this encounter
--- OUTSIDE RECORDS SUMMARY | 2025-06-08 08:58 | XMS_ITS | Encounter Summary ---
Author Organization [employer] ([place], [place], [place], [place]) Address [address] [place] [address] Care Team Providers Care Medical Technologist Clinical Name Role Phone Unavailable Primary Care Provider Unavailabl e Encounter Details Date Type Department Care Team (Late st Contact Info) Description 09/26/2021 Transcribed Document [facility] [place] [facility] [place] [address] ProviderTammi MD [address] [place] [address] Social History Tobacco Use Types [...] Tammi Lam MD - 09/26/2021 10:29 AM UPHOLSTERY DEPARTMENT SUPERVISOR Patient: ZOHRA GUTIERREZ Age: 40 years [...] Radiology results Radiology Results (Last 48 hours) [id number] -- 09/25/2021 09:19 CR Chest 1 Vw [...] daily Electronically signed by Raheem Villavicencio Conversion Wire Frame Lampshade Maker Cerner at 02/20/2023 7:18 AM CDT documented in this encounter Plan of Treatment Not on file documented as of this encounter Visit Diagnoses Not on filedocumented in this encounter
--- OUTSIDE RECORDS SUMMARY | 2025-06-08 08:58 | XMS_ITS | Encounter Summary ---
Author Organization [employer] ([place], [place], [place], [place]) Address [address] [place] [address] Care Team Providers Care Bartender Manager Name Role Phone Unavailable Primary Care Provider Unavailabl e Encounter Details Date Type Department Care Team (Late st Contact Info) Description 09/27/2021 Transcribed Document [facility] [place] [facility] [place] [address] ProviderTammi MD [address] [place] [address] Social History Tobacco Use Types [...] - Tammi ProviderMD - 09/27/2021 12:03 PM TECHNICIANS AND TRADES WORKERS UM Authorization Entered On: 09/27/2021 12:03 EST Performed On: 09/27/2021 12:03 EST by VIJAY MASON Rn-Utilization Review Primary Insurance Authorization Authorization and Policy Numbers : Insurance 1 Health Plan: [facility] Policy Number: [id number] Authorization Number: [id number] Insurance Primary Name : [facility] Policy Number: [id number] Authorization Status-Primary : Awaiting callback Authorization Number-Primary : [id number] Number of Days Authorized-Primary : 2 Day(s) Authorized Service Begin Date-Primary : 09/25/2021 EST Authorized Service End Date-Primary : 09/27/2021 EST Authorization Comments-Primary : Clinicals faxed via [employer] for 09/26-09/27. Historical Authorization Comments-Primary : Comment 1: Continued stay authorized per fax 09/27/21 @ 0112. Total days approved x3. (Mary Mae, Rn Transitional Care 09/27/2021 07:23) Comment 2: Clinicals faxed via [employer] (VIJAY MASON, Rn-Utilization Review 09/26/2021 09:35) Comment 3: [place] approved per Star note for 1 day inpt (SARITHA BARNES, ZULAY-Utilization Review 09/20/2021 13:51) Comment 4: per STAR [place] inpt auth is PENDING (MARGARITA LUGO, Die Maker Bench Stamping 09/19/2021 12:53) VIJAY MASON, Rn-Utilization Review - 09/27/2021 12:03 EST Electronically signed by Saud, [facility] Conversion Carpenter Apprentice Cerner at 02/20/2023 7:08 AM CDT documented in this encounter Plan of Treatment Not on file documented as of this encounter Visit Diagnoses Not on filedocumented in this encounter
--- OUTSIDE RECORDS SUMMARY | 2025-06-08 08:59 | XMS_ITS | Encounter Summary ---
Author Organization [employer] ([place], [place], [place], [place]) Address [address] [place] [address] Care Team Providers Care Center Line Cutter Operator Name Role Phone Unavailable Primary Care Provider Unavailabl e Encounter Details Date Type Department Care Team (Late st Contact Info) Description 09/25/2021 Transcribed Document [facility] [place] [facility] [place] [address] ProviderTammi MD [address] [place] [address] Social History Tobacco Use Types Packs/Day [...] Tammi Lam MD - 09/25/2021 9:52 AM DEALERSHIP MANAGER Pain Assessment Entered On: 09/26/2021 3:13 EST [...] form. Electronically signed by Raheem Villavicencio Conversion Cloth Mercerizing Supervisor Cerner at 02/22/2023 9:24 AM CDT documented in this encounter Plan of Treatment Not on file documented as of this encounter Visit Diagnoses Not on filedocumented in this encounter
--- OUTSIDE RECORDS SUMMARY | 2025-06-08 08:59 | XMS_ITS | Encounter Summary ---
Author Organization [employer] ([place], [place], [place], [place]) Address [address] [place] [address] Care Team Providers Care Environmental Remediation Engineer Name Role Phone Unavailable Primary Care Provider Unavailabl e Encounter Details Date Type Department Care Team (Late st Contact Info) Description 09/25/2021 Transcribed Document [facility] [place] Family Medicine [facility] [place] [address] ProviderTammi MD [address] [place] [address] Social History Tobacco Use Types [...] - Tammi ProviderMD - 09/25/2021 4:15 PM PHYSICAL EDUCATION DEPARTMENT CHAIR Meds to Bed Enrollment Entered On: 09/26/2021 9:21 EST Performed On: 09/25/2021 16:15 EST by Reji Landry Agile Scrum Coach Cert Lead Meds to Bed Enrollment Patient Enrollment Decision: : Yes/enroll in meds to bed program Reji Landry Agile Scrum Coach Cert Lead - 09/26/2021 9:20 EST documented in this encounter Plan of Treatment Not on file documented as of this encounter Visit Diagnoses Not on filedocumented in this encounter
--- OUTSIDE RECORDS SUMMARY | 2025-06-08 08:59 | XMS_ITS | Encounter Summary ---
Author Organization [employer] ([place], [place], [place], [place]) Address [address] [place] [address] Care Team Providers Care Restaurant Worker Name Role Phone Unavailable Primary Care Provider Unavailabl e Encounter Details Date Type Department Care Team (Late st Contact Info) Description 09/19/2021 Transcribed Document [facility] [place] [facility] [place] [address] ProviderTammi MD [address] [place] [address] Social History Tobacco Use Types [...] - Tammi ProviderMD - 09/19/2021 12:53 PM ESTATE AND TRUST TAX PRINCIPAL UM Authorization Entered On: 09/19/2021 12:54 EST Performed On: 09/19/2021 12:53 EST by MARGARITA LUGO Cafe Operator Primary Insurance Authorization Authorization and Policy Numbers : Insurance 1 Health Plan: [facility] Policy Number: [id number] Authorization Number: Insurance Primary Name : Meme [id number] Authorization Number-Primary : PENDING AUTH [id number] Authorized Service Begin Date-Primary : 09/20/2021 EST Authorization Comments-Primary : per STAR [place] inpt auth is PENDING Historical Authorization Comments-Primary : No Authorization Comments Found MARGARITA LUGO, Cafe Operator - 09/19/2021 12:53 EST documented in this encounter Plan of Treatment Not on file documented as of this encounter Visit Diagnoses Not on filedocumented in this encounter
--- OUTSIDE RECORDS SUMMARY | 2025-06-08 08:59 | XMS_ITS | Encounter Summary ---
Author Organization Healthcare Address [address] [place] [address] Care Team Providers Care Charter Pilot Name Role Phone Adam Ireland MD Primary Care Provider [phone] Brandon Gautam MD Unavailable [phone] Angel Pond MD Primary Care Provider [phone] Encounter Details Date Type Department Care Team ([facility] Contact Info) Description 08/15/2021 Lab Requisition [facility] [address] [place] [address] AmauriLiat fuentes [address] [facility] [address] [place] [id number] Pulmonary mycobacterial infection (CMS/HCC) Social History Tobacco [...] Upcoming Encounters Date Type Department Care Team ([facility] Contact Info) Description 06/30/2025 2:00 PM EDT Office Visit [facility] Sleep Disorder Center [address] [place] [address] Brittany Oakes, FIRMWARE SOFTWARE VERIFICATION ENGINEER [address] [place] [address] 07/07/2025 9:00 AM EDT Consult Medical Office Building Urology [address], [address] [place] [address] Leonela Patterson, GILL, DNP [address] [place] [address] 08/25/2025 10:00 AM EDT [facility] Visit [facility] Medicine Specialties [address] [place] [address] Porsche Kilgore MD [address] [place] [address] documented as of this encounter [...] Signature, Body Fluid 08/16/2021 12:10 PM EDT [facility] Comment:Reviewed by: Cassandra maloney MD LAB CP ASR DISCLAIMER Yes 08/16/2021 12:10 PM EDT [facility] Bronchoalveolar lavage fluid specimen (specimen) 08/15/2021 6:17 PM EDT 08/15/2021 6:17 PM EDT [facility] BODY FLUIDS AND STOOLS ORDER GET Final Result [facility] [address] [place] [address] * Bronchoalveolar Lavage Cell Count W/ Diff (08/15/2021 6:17 PM EDT) Total Nucleated Cell Count, Body fluid 66 uL LAB HEMATOLOGY METHOD 08/15/2021 7:37 PM EDT [facility] Comment:Test performed by adelaida keith method Neutrophils %, BAL 68 % LAB HEMATOLOGY METHOD 08/15/2021 7:37 PM EDT [facility] Lymphocytes %, BAL 0 % LAB HEMATOLOGY METHOD 08/15/2021 7:37 PM EDT [facility] Monocytes/Macro phages %, BAL 12 % LAB HEMATOLOGY METHOD 08/15/2021 7:37 PM EDT [facility] Eosinophils %, BAL 20 % LAB HEMATOLOGY METHOD 08/15/2021 7:37 PM EDT [facility] Basophils %, BAL 0 % LAB HEMATOLOGY METHOD 08/15/2021 7:37 PM EDT [facility] Squamous Cells %, BAL 0 % LAB HEMATOLOGY METHOD 08/15/2021 7:37 PM EDT [facility] Bronchial Cells %, BAL 0 % LAB HEMATOLOGY METHOD 08/15/2021 7:37 PM EDT [facility] Other Cells %, BAL 0 % LAB HEMATOLOGY METHOD 08/15/2021 7:37 PM EDT [facility] Comment, BAL NONE LAB HEMATOLOGY METHOD 08/15/2021 7:37 PM EDT [facility] Comment:This is an appended report. These results have been appended to a previously preliminary verified report. Bronchoalveolar lavage fluid specimen (specimen) 08/15/2021 6:17 PM EDT 08/15/2021 6:17 PM EDT [facility] LAB BODY FLUIDS AND STOOLS ORDER GET Final Result [facility] [address] [place] [address] documented in this encounter Visit Diagnoses Diagnosis Pulmonary mycobacterial infection (CMS/HCC) documented in this encounter Care Teams Charter Pilot Relationship Specialty Start Date End Date Adam Ireland MD [address] [place] [address] PCP - General 03/17/21 09/10/22 Angel Pond MD [address] [place] [address] [address] [place] [address] PCP - General 09/11/22 Brandon Gautam MD [address] [address] Referring Physician 01/04/22 documented as of this encounter
--- OUTSIDE RECORDS SUMMARY | 2025-06-08 08:59 | XMS_ITS | Encounter Summary ---
Author Organization [employer] ([place], [place], [place], [place]) Address [address] [place] [address] Care Team Providers Care Master Control Supervisor Name Role Phone Unavailable Primary Care Provider Unavailabl e Encounter Details Date Type Department Care Team (Late st Contact Info) Description 09/25/2021 Transcribed Document [facility] [place] [facility] [place] [address] ProviderTammi MD [address] [place] [address] Social History Tobacco Use Types [...] - Tammi ProviderMD - 09/25/2021 6:10 AM IBM BPM ARCHITECT Patient: ZOHRA GUTIERREZ Age: 40 years [...] All Problems Rheumatoid arthritis / SNOMED CT 172691663 / Confirmed Pneumonia / SNOMED CT 394120384 / Confirmed Lung infection (chronic) / SNOMED CT 157264866 / Confirmed states started in 2019 History of MAC infection / SNOMED CT 0969296484 / Confirmed GERD - Gastro-esophageal reflux disease / SNOMED CT 7592777467 / Confirmed Fibromyalgia / SNOMED CT 369529070 / Confirmed Shortness of breath ([facility]) / SNOMED CT 618221092 / Confirmed Depression / SNOMED CT 38815472 / Confirmed Bronchitis / SNOMED CT 60099123 / Confirmed, Active Problems (9) Bronchitis Depression [...] lower back interstim noted. Integumentary: Warm, Dry, [place]. Neurologic: Alert, Oriented. Psychiatric: Cooperative, Appropriate mood [...] with surgery, plan to stay 1 night. Electronically signed by Raheem Villavicencio Conversion Wire Turning Machine Operator Cerner at 02/20/2023 7:17 AM CDT documented in this encounter Plan of Treatment Not on file documented as of this encounter Visit Diagnoses Not on filedocumented in this encounter
--- OUTSIDE RECORDS SUMMARY | 2025-06-08 08:59 | XMS_ITS | Encounter Summary ---
Author Organization [employer] ([place], [place], [place], [place]) Address [address] [place] [address] Care Team Providers Care Plate Conditioner Name Role Phone Unavailable Primary Care Provider Unavailabl e Encounter Details Date Type Department Care Team (Late st Contact Info) Description 09/25/2021 Transcribed Document [facility] [place] Medicine [facility] [place] [address] ProviderTammi MD [facility] [place] [address] Social History Tobacco Use Types [...] - Tammi ProviderMD - 09/25/2021 8:44 AM EDITOR & CO FOUNDER [facility] Main OR PACU Summary Primary Physician: KEITH WADDELL MD-CAT Finalized Date/Time: 09/25/21 16:17:06 Pt. Name: ZOHRA CHANDLER D.O.B./Sex: 1980 Female Med Rec #: [id number] Physician: KEITH WADDELL MD-CAT Financial #: [id number] Pt. Type: I Room/Bed: 306/1 Admit/Disch: 09/25/21 09:19:00 - Institution: [facility] Main OR PACU I Case Times Entry 1 In PACU I 09/25/21 09:35:00 Ready for PACU 09/25/21 10:35:00 Discharge Discharge from PACU 09/25/21 16:04:00 I Last Modified By: Kaitlyn Atkinson Rn 09/25/21 16:10:47 [facility] Main OR PACU Acuity Entry 1 Start Time 09/25/21 10:35:00 Stop Time 09/25/21 16:04:00 Acuity Level [facility] PACU Acuity I Last Modified By: Kaitlyn Atkinson Rn 09/25/21 16:17:03 Finalized By: Kaitlyn Atkinson, Rn Document Signatures Signed By: Kaitlyn Atkinson Rn 09/25/21 16:17 Electronically signed by Saud [facility] Conversion Marine Services Technician Cerner at 02/20/2023 7:07 AM CDT documented in this encounter Plan of Treatment Not on file documented as of this encounter Visit Diagnoses Not on filedocumented in this encounter
--- OUTSIDE RECORDS SUMMARY | 2025-06-08 08:59 | XMS_ITS | Encounter Summary ---
Author Organization [employer] ([place], [place], [place], [place]) Address [address] [place] [address] Care Team Providers Care Engine Service Repairer Name Role Phone Unavailable Primary Care Provider Unavailabl e Encounter Details Date Type Department Care Team (Late st Contact Info) Description 09/20/2021 Transcribed Document [facility] [place] [facility] [place] [address] ProviderTammi MD [address] [place] [address] Social History Tobacco Use Types [...] - Tammi ProviderMD - 09/20/2021 1:51 PM NATIONAL COVERAGE SPECIALIST UM Authorization Entered On: 09/20/2021 13:53 EST Performed On: 09/20/2021 13:51 EST by SARITHA BARNES RN-Utilization Review Primary Insurance Authorization Authorization and Policy Numbers : Insurance 1 Health Plan: [facility] Policy Number: [id number] Authorization Number: [id number] Insurance Primary Name : Meme [id number] Authorization Status-Primary : Admit approved Authorization Number-Primary : [id number] Number of Days Authorized-Primary : 0 Day(s) Authorized Service Begin Date-Primary : 09/21/2021 EST Authorized Service End Date-Primary : 09/21/2021 EST Authorization Comments-Primary : [place] approved per Star note for 1 day inpt Historical Authorization Comments-Primary : Comment 1: per STAR [place] inpt auth is PENDING (MARGARITA LUGO, Legal Examiner 09/19/2021 12:53) SARITHA BARNES RN-Utilization Review - 09/20/2021 13:51 EST Electronically signed by Saud, [facility] Conversion Education Counselor Cerner at 02/20/2023 7:01 AM CDT documented in this encounter Plan of Treatment Not on file documented as of this encounter Visit Diagnoses Not on filedocumented in this encounter
--- OUTSIDE RECORDS SUMMARY | 2025-06-08 08:59 | XMS_ITS | Encounter Summary ---
Author Organization [employer] ([place], [place], [place], [place]) Address [address] [place] [address] Care Team Providers Care Route Driver Name Role Phone Unavailable Primary Care Provider Unavailabl e Encounter Details Date Type Department Care Team (Late st Contact Info) Description 09/25/2021 Transcribed Document [facility] [place] [facility] [place] [address] ProviderTammi MD [address] [place] [address] Social History Tobacco Use Types [...] Tammi Lam MD - 09/25/2021 9:31 AM SECURITIES COMPLIANCE EXAMINER DATE OF PROCEDURE: 09/25/2021 SURGEON: Carmen Dawkins MD PREOPERATIVE DIAGNOSIS: Recurrent pneumonia. POSTOPERATIVE DIAGNOSIS: Recurrent pneumonia. PROCEDURE PERFORMED: Right video-assisted thoracoscopy, right middle lobe lung wedge resection. ANESTHESIA: General endotracheal anesthesia. WASTEWATER ANALYST LAB ANALYST: Terrance Mcghee, physician personal banking assistant. INDICATION FOR PROCEDURE: Nancy Gutierrez is [...] the incision in the midclavicular line, a 32-B[place] straight chest tube was placed and was directed towards the apex of the chest cavity. It was then subsequently secured to the skin. All the ports were then removed. All the access sites were then closed using 2-0 Vicryl and skin was approximated in subcuticular stitches. The lung was then reinflated. The patient was transferred to the recovery in stable condition. /[id number] MD NAHOMY Silva/BOGDAN / NAHOMY / MODL /[id number] CC: MD Liat Silva MD Stephen Moses, MD Electronically signed by Saud [facility] Conversion Band Attacher Cerner at 02/20/2023 7:13 AM CDT documented in this encounter Plan of Treatment Not on file documented as of this encounter Visit Diagnoses Not on filedocumented in this encounter
--- OUTSIDE RECORDS SUMMARY | 2025-06-08 08:59 | XMS_ITS | Encounter Summary ---
Author Organization Healthcare Address [address] [place] [address] Care Team Providers Care Replenisher Name Role Phone Brandon Gautam MD Unavailable [phone] Angel Pond MD Primary Care Provider [phone] Encounter Details Date Type Department Care Team (Late st Contact Info) Description 05/25/2025 Results Follow-Up [facility] Medicine Specialties [address] [place] [address] Porsche Kilgore MD [address] [place] [address] Social History Tobacco Use Types Packs/Day Years [...] [facility] [address] [place] [address] Brittany Oakes, GILL [address] [place] [address] 07/07/2025 9:00 AM EDT Consult Medical Office Building Urology [address] [facility], [address] [place] [address] Leonela Patterson APRN, DNP [address] [place] [address] 08/25/2025 10:00 AM EDT Office Visit [place] [facility] Medicine Specialties [address] [place] [address] Porsche Kilgore MD [address] [place] [address] documented as of this encounter [...] documented as of this encounter Care Teams Replenisher Relationship Specialty Start Date End Date Angel Pond MD [address] [place] [address] [address] [place] [address] PCP - General 09/11/22 Brandon Gautam MD [address] [address] Referring Physician 01/04/22 documented as of this encounter
--- OUTSIDE RECORDS SUMMARY | 2025-06-08 08:59 | XMS_ITS | Encounter Summary ---
Author Organization [employer] ([place], [place], [place], [place]) Address [address] [place] [address] Care Team Providers Care Flow Trader Name Role Phone Unavailable Primary Care Provider Unavailabl e Encounter Details Date Type Department Care Team (Late st Contact Info) Description 09/25/2021 Transcribed Document [facility] [place] [facility] [place] [address] ProviderTammi MD [address] [place] [address] Social History Tobacco Use Types Packs/Day Years Used Date Smoking Tobacco: Never Assessed Comments Unknown Sex and Gender Information Value Date Recorded Sex Assigned at Not on file Legal Sex Female 5:43 PM CDT Gender Identity Not on file Sexual Orientation Not on file documented as of this encounter Miscellaneous Notes * Cerner Conversion Note - Tammi ProviderMD - 09/25/2021 7:30 AM COLLATERAL ANALYST [facility] Main OR Preop Summary Primary Physician: KEITH WADDELL MD-CAT Finalized Date/Time: 09/25/21 07:58:16 Pt. Name: ZOHRA CHANDLERO.B./Sex: 1980 Female Med Rec #: [id number] Physician: KEITH WADDELL MD-CAT Financial #: [id number] Pt. Type: P Room/Bed: / Admit/Disch: 09/12/21 10:13:00 - Institution: [facility] PreOp Case Times Entry 1 In Preop 09/25/21 06:40:00 Ready for Holding n/a Room Patient Ready for 09/25/21 07:00:00 Surgery Patient Out of Preop 09/25/21 07:23:00 Patient Out of n/a Holding Room Last Modified By: MARSHALL REYNA RN 09/25/21 07:58:11 [facility] PreOp Case Times Audit 09/25/21 07:58:11 Sheet Rock Applicator: KOMAL Modifier: MCGRANM <+> 1 Patient Out of Preop 09/25/21 07:01:27 Sheet Rock Applicator: KOMAL Modifier: MCGRANM <+> 1 Patient Ready for Surgery Finalized By: MARSHALL REYNA RN Document Signatures Signed By: MARSHALL REYNA RN 09/25/21 07:58 documented in this encounter Plan of Treatment Not on file documented as of this encounter Visit Diagnoses Not on filedocumented in this encounter
--- OUTSIDE RECORDS SUMMARY | 2025-06-08 08:59 | XMS_ITS | Encounter Summary ---
Author Organization [employer] ([place], [place], [place], [place]) Address [address] [place] [address] Care Team Providers Care Clinical Technician Name Role Phone Unavailable Primary Care Provider Unavailabl e Encounter Details Date Type Department Care Team (Late st Contact Info) Description 09/25/2021 Transcribed Document [facility] [place] Family Medicine [place] [address] ProviderTammi MD [address] [place] [address] Social History Tobacco Use Types Packs/Day Years Used Date Smoking Tobacco: Never Assessed Comments Unknown Sex and Gender Information Value Date Recorded Sex Assigned at Not on file Legal Sex Female 5:43 PM CDT Gender Identity Not on file Sexual Orientation Not on file documented as of this encounter Miscellaneous Notes * Cerner Conversion Note - Tammi ProviderMD - 09/25/2021 9:52 AM WASTE MACHINE OFFBEARER Pain Assessment Entered On: 09/26/2021 0:27 EST [...] form. Electronically signed by Raheem Villavicencio Conversion Agricultural Research Director Cerner at 02/22/2023 9:24 AM CDT documented in this encounter Plan of Treatment Not on file documented as of this encounter Visit Diagnoses Not on filedocumented in this encounter
--- OUTSIDE RECORDS SUMMARY | 2025-06-08 08:59 | XMS_ITS | Encounter Summary ---
Author Organization [employer] ([place], [place], [place], [place]) Address [address] [place] [address] Care Team Providers Care Pilot Submersible Name Role Phone Unavailable Primary Care Provider Unavailabl e Encounter Details Date Type Department Care Team (Late st Contact Info) Description 09/25/2021 Transcribed Document [facility] [place] [address] ProviderTammi MD [address] [place] [address] Social History Tobacco Use Types Packs/Day Years Used Date Smoking Tobacco: Never Assessed Comments Unknown Sex and Gender Information Value Date Recorded Sex Assigned at Not on file Legal Sex Female 5:43 PM CDT Gender Identity Not on file Sexual Orientation Not on file documented as of this encounter Miscellaneous Notes * Cerner Conversion Note - Tammi ProviderMD - 09/25/2021 9:22 AM [facility] Evaluation, Physical Therapy Entered On: 09/27/2021 15:50 [...] DONALDO WHITTEN, PT - 09/27/2021 15:41 EST Yoghurt Maker Goals Ambulation LTG Grid Goal #1 Device [...] 09/27/2021 15:41 EST Electronically signed by Saud [facility] Conversion Weed Cooking Operator Cerner at 02/20/2023 7:12 AM CDT documented in this encounter Plan of Treatment Not on file documented as of this encounter Visit Diagnoses Not on filedocumented in this encounter
--- OUTSIDE RECORDS SUMMARY | 2025-06-08 08:59 | XMS_ITS | Encounter Summary ---
Author Organization Healthcare Address [address] [place] [address] Care Team Providers Care Vice Investigator Name Role Phone Brandon Gautam MD Unavailable [phone] Angel Pond MD Primary Care Provider [phone] Encounter Details Date Type Department Care Team (Late st Contact Info) Description 05/25/2025 Orders Only [facility] [address] [place] [address] Gómez Hancock, RN High risk medication use Social History Tobacco Use Types Packs/Day Years [...] Description 06/30/2025 2:00 PM EDT Office Visit [facility] [address] [place] [address] Brittany Oakes, EXPORT FREIGHT MANAGER [address] [place] [address] 07/07/2025 9:00 AM EDT Consult Medical Office Building Urology [address] [facility], [address] [place] [address] Leonela Patterson, EXPORT FREIGHT MANAGER, DNP [address] [place] [address] 08/25/2025 10:00 AM EDT Office [facility] [address] [place] [address] Porsche Kilgore MD [address] [place] [address] documented as of this encounter Procedures Procedure Name Priority Date/Time Associated Diagnosis Comments COMPREHENSIVE METABOLIC PANEL, PLASMA Routine 05/25/2025 7:34 AM EDT High risk medication use documented in this encounter Results * Comprehensive metabolic panel (05/25/2025 7:34 AM EDT) Blood Venous blood specimen / Unknown us Porsche Kilgore MD LAB BLOOD ORDERABLES Final Re sult EXTERNAL LAB documented in this encounter Visit Diagnoses Diagnosis High risk medication use documented in this encounter Additional Health Concerns Assessment Noted Time PHQ-9 Depression Total Score: 3 01/21/20 25 11:43 AM EDT A fall risk assessment has been complete d for the patient 03/30/2025 1:41 PM EDT A Body Mass Index follow-up plan has been documented for the patient 03/30/2025 2:17 PM EDT documented as of this encounter Care Teams Vice Investigator Relationship Specialty Start Date End Date Angel Pond MD [address] [place] [address] [address] [place] [address] PCP - General 09/11/22 Brandon Gautam MD [address] [place] [address] Referring Physician 01/04/22 documented as of this encounter
--- OUTSIDE RECORDS SUMMARY | 2025-06-08 08:59 | XMS_ITS | Encounter Summary ---
Author Organization [employer] ([place], [place], [place], [place]) Address [address] [place] [address] Care Team Providers Care Fws Faculty Assistant Name Role Phone Unavailable Primary Care Provider Unavailabl e Encounter Details Date Type Department Care Team (Late st Contact Info) Description 09/25/2021 Transcribed Document [facility] [place] [facility] [address] ProviderTammi MD [address] [place] [address] Social History Tobacco Use Types Packs/Day Years Used Date Smoking Tobacco: Never Assessed Comments Unknown Sex and Gender Information Value Date Recorded Sex Assigned at Not on file Legal Sex Female 5:43 PM CDT Gender Identity Not on file Sexual Orientation Not on file documented as of this encounter Miscellaneous Notes * Cerner Conversion Note - Tammi ProviderMD - 09/25/2021 8:44 AM COMPUTER GRAPHIC ARTIST [facility] Main OR IntraOp Summary Primary Physician: KEITH WADDELL MD-CAT Finalized Date/Time: 09/26/21 13:16:06 Pt. Name: ZOHRA GUTIERREZ /Sex: 1980 Female Med Rec #: [id number] Physician: KEITH WADDELL MD-CAT Financial #: [id number] Pt. Type: I Room/Bed: [facility]/1 Admit/Disch: 09/25/21 09:19:00 - Institution: [facility] IntraOp Case Attendance Entry 1 Entry 2 Entry 3 Case Attendee KEITH WADDELL Grimes, Jennifer, [employer] PEPPER, PATRICK, PA MD-CAT Pref Card Builder Role Performed Surgeon/Proceduralist, Clipper Machine Operator, First Physician business banking sales assistant First Time In 09/25/21 07:26:00 09/25/21 07:26:00 09/25/21 07:26:00 Time Out 09/25/21 09:35:00 09/25/21 09:35:00 09/25/21 09:35:00 Procedure Thoracoscopy(Right) Thoracoscopy(Right) Thoracoscopy(Right) Other Attendee Superficial Wound Closed By: Last Modified By: Yojana Swann [facility] Grimes, Jennifer, [facility] Grimes, Jennifer, [facility] Pref Card Builder Pref Card Builder Pref Card Builder 09/25/21 09:36:33 09/25/21 09:36:33 09/25/21 09:36:33 Entry 4 Entry 5 Case Attendee ZOLTAN BGALEY ST CHALKLEY, JUDSON E, MD-ANS Role Performed Scrub, First Anesthesiologist Time In 09/25/21 07:26:00 09/25/21 07:26:00 Time Out 09/25/21 09:35:00 09/25/21 09:35:00 Procedure Thoracoscopy(Right) Thoracoscopy(Right) Other Attendee Superficial Wound Closed By: Last Modified By: Yojana Swann [facility] Grimes, Jennifer, [facility] Pref Card Builder Pref Card Builder 09/25/21 09:36:33 09/25/21 09:36:33 [facility] IntraOp Case Attendance Audit 09/25/21 09:36:33 Tester Compressed Gases: RICHARD Modifier: TEREZASHIRA 1 <+> Time Out 1 <*> Procedure Thoracoscopy(Right) 2 <+> Time Out 2 <*> Procedure Thoracoscopy(Right) 3 <+> Time Out 3 <*> Procedure Thoracoscopy(Right) 4 <+> Time Out 4 <*> Procedure Thoracoscopy(Right) 5 <+> Time Out 5 <*> Procedure Thoracoscopy(Right) 09/25/21 08:08:20 Tester Compressed Gases: RICHARD Modifier: TEREZASHIRA <+> 1 Procedure 2 <+> Time In 2 <*> Procedure Thoracoscopy(Right) 3 <+> Time In 3 <*> Procedure Thoracoscopy(Right) 4 <+> Time In 4 <*> Procedure Thoracoscopy(Right) 5 <+> Time In 5 <*> Procedure Thoracoscopy(Right) [facility] IntraOp Case Times Entry 1 Patient In Room Time 09/25/21 07:26:00 Out Room Time 09/25/21 09:35:00 Anesthesia Start Time 09/25/21 07:26:00 Stop Time 09/25/21 09:35:00 Surgery / Procedure Times Start Time 09/25/21 08:44:00 Stop Time 09/25/21 09:27:00 Last Modified By: Yojana Swann [facility] Pref Card Builder 09/25/21 09:35:04 [facility] IntraOp Case Times Audit 09/25/21 09:35:04 Tester Compressed Gases: RICHARD Modifier: [email or web address] <+> 1 Out Room Time <+> 1 Stop Time <+> 1 Stop Time 09/25/21 08:44:35 Tester Compressed Gases: RICHARD Modifier: [email or web address] <+> 1 Start Time [facility] IntraOp Cautery Entry 1 ESU Identification Cautery Type Monopolar ESU ID Number [id number] ID Type Hospital Number Cautery Settings Cut [...] Swann [facility] Pref Card Builder 09/25/21 08:05:19 [facility] IntraOp Communication Entry 1 Entry 2 Communication To Family/Significant other Family/Significant other Comment START CLOSING Communication By Yojana Swann [facility] Grimes, Jennifer, [facility] Pref Card Builder Pref Card Builder Date and Time 09/25/21 08:44:00 09/25/21 09:11:00 Last Modified By: Yojana Swann [facility] Grimes, Jennifer, [facility] Pref Card Builder Pref Card Builder 09/25/21 08:44:47 09/25/21 09:11:38 [facility] IntraOp Communication Audit 09/25/21 09:11:38 Tester Compressed Gases: RICHARD Modifier: RICHARD <+> 2 Communication By <+> 2 Date and Time <+> 2 Communication To <+> 2 Comment [facility] IntraOp Counts Verification Entry 1 [...] Swann [facility] Pref Card Builder 09/25/21 09:20:47 [facility] IntraOp Counts Final Audit 09/25/21 09:20:47 Tester Compressed Gases: RICHARD Modifier: RICHARD 1 <*> Procedure Thoracoscopy(Right) 1 <+> Count Performed By (Scrub) 1 <+> Count Performed By (RN) [facility] IntraOp Cultures and Spec Summary Entry 1 Cultrures and Specimens Specimen Ordered: Yes Test(s) Routine/Path-Lab, Requested/Final Culture(s)/Microbiology Disposition Last Modified By: Yojana Swann [facility] Pref Card Builder 09/25/21 09:05:50 General Comments: 1. RIGHT MIDDLE LOBE - CULTURE [facility] IntraOp Cultures and Spec Summary Audit 09/25/21 09:05:50 Tester Compressed Gases: RICHARD Modifier: RICHARD 1 <*> Test(s) Requested/Final Disposition 1 <*> Test(s) Requested/Final Disposition 1 <*> Test(s) Requested/Final Disposition Culture(s)/Microbiology 1 <*> Test(s) Requested/Final Disposition Culture(s)/Microbiology 1 <*> Test(s) Requested/Final Disposition Culture(s)/Microbiology [facility] IntraOp Departure from OR Entry 1 Integumentary Assessment Integumentary WDL Assessment WDL Transfer/Handoff Transfer to PACU Phase I Handoff Method Bedside/Face to face, Phone call Post-op Transport Stretcher/Gurney Via Patient Transport OG MEDEIROS, Accompanied by DHRUV, LORETTA SALMERON PA Last Modified By: Yojana Swann [facility] Pref Card Builder 09/25/21 08:06:24 [facility] IntraOp Drains and Tubes Entry 1 Device Type Chest Tube Size 32 FR Drain/Tube Activity Tube secured/stabilized, Inserted Drain/Tube Suction Continuous low Drain/Tube Drainage Red Device Location chest, operative side Method of Drainage Continuous suction Chest Tubes Water-Seal 20 cm suction Connectivity Tube Dressing Dry, Intact Condition Last Modified By: Yojana Swann [facility] Pref Card Builder 09/25/21 09:05:58 [facility] IntraOp Drains and Tubes Audit 09/25/21 09:05:58 Tester Compressed Gases: RICHARD Modifier: RICHARD <+> 1 Size [facility] IntraOp Dressing and Packing Entry 1 Wound Dressing Item 4x4's Other Comments covaderm, Soft cloth paper tape Last Modified By: Yojana Swann [facility] Pref Card Builder 09/25/21 08:47:39 [facility] IntraOp Fire Risk Assessment Entry [...] Swann [facility] Pref Card Builder 09/25/21 08:06:30 [facility] IntraOp General Case Market Risk Manager 1 Case Information OR OR [facility] Case Level 1 Room Verified Yes Wound Class 1 - Clean Specialty Cardio Thoracic Anesthesia Type General ASA Class 3 Diagnosis Preop Diagnosis PULMONARY MYCOBACTERIAL INFECTION Postop Same As Preop No Postop Diagnosis SEE MD POST OP NOTE Wound Class Definitions Last Modified By: Yojana Swann [facility] Pref Card Builder 09/25/21 08:50:01 [facility] IntraOp General Case Data Audit 09/25/21 08:50:01 Tester Compressed Gases: RICHARD Modifier: RICHARD <+> 1 Preop Diagnosis <+> 1 Room Verified [facility] IntraOp Intraoperative Assessment Entry 1 [...] OR Last Modified By: Yojana Swann [facility] [employer] Daily [employer] Card Builder 09/25/21 08:06:58 [facility] IntraOp Intraoperative Equipment Entry 1 Type Monitoring Equipment Intraop Monitoring Electrocardiogram Five lead placement (ECG) Electrode Placement Blood Pressure Non-Invasive BP Device Source Blood Pressure Arm, right upper Location Pulse Oximeter Hand, left Probe Site Antiembolic Devices Antiembolic Devices Sequential compression device, knee high Antiembolic Device Bilateral Location Antiembolic Device [id number] ID Number Antiembolic Device [id number] Setting Scopes Photo/Video Documentation Last Modified By: Yojana Swann [facility] [employer] Daily [employer] Card Buildemiliana 09/25/21 08:07:35 [facility] IntraOp Medication Admin Entry 1 Medication/Irrigant lidocaine 1% 30ml vial - [id number] Route of LOCAL Administration Dose Dose 30 Unit of Measure ml Administered By KEITH WADDELL MD-CAT Procedure Irrigation Last Modified By: Yojana Swann [facility] [employer] Card Builder 09/25/21 08:53:08 [facility] IntraOp Patient Positioning Entry 1 [...] patient's leg Positioned By Yojana Swann [facility] The Daily Voice Card Merlyn, OG MEDEIROS MD-ANS, KEITH WADDELL MD-CAT Position Verified Positioning Yes Verified by Anesthesia Positioning Yes Verified by Surgeon Last Modified By: Yojana Swann [employer] Pref Card Builder 09/25/21 08:07:52 [facility] IntraOp Sign In Entry 1 [...] Swann [facility] Pref Card Builder 09/25/21 08:07:59 [facility] IntraOp Sign Out Entry 1 [...] Swann [facility] Pref Card Builder 09/25/21 09:36:42 [facility] IntraOp Sign Out Audit 09/25/21 09:36:42 Tester Compressed Gases: RICHARD Modifier: RICHARD <+> 1 RN Sign Out Signature Date/Time [facility] IntraOp Skin Prep Entry 1 Procedure Thoracoscopy(Right) Prescribed Yes Pre-Surgical Prep Completed Prep Area Operative side, chest laterally, anterior & posterior, shoulder to waist Intraop Prep Integumentary WDL Assessment WDL Prep Agents Chloraprep Prep by Yojana Swann [facility] Pref Card Buildmeiliana Hair Removal Last Modified By: Yojana Swann [facility] Pref Card Builder 09/25/21 08:08:14 [facility] IntraOp Surgical Procedures Entry 1 Procedure Thoracoscopy Modifiers Right Additional (RT THORACOSCOPY, OPEN Procedure LUNG BIOPSY, POSSIBLE Description THORACOTOMY) Primary Procedure Yes Primary Surgeon KEITH WADDELL MD-CAT Start 09/25/21 08:44:00 Stop 09/25/21 09:27:00 Anesthesia Type General Specialty Cardio Thoracic Wound Class 1 - Clean Last Modified By: Yojana Swann [employer] Pref Card Builder 09/25/21 09:36:44 [facility] IntraOp Surgical Procedures Audit 09/25/21 09:36:44 Tester Compressed Gases: RICHARD Modifier: RICHARD <+> 1 Stop 09/25/21 08:51:52 Tester Compressed Gases: RICHARD Modifier: RICHARD <+> 1 Start [facility] IntraOP Time Out Entry 1 [...] Swann [facility] Pref Card Builder 09/25/21 08:44:08 [facility] IntraOP Time Out Audit 09/25/21 08:44:08 Tester Compressed Gases: RICHARD Modifier: RICHARD 1 <+> Time Out Pause Time 1 <*> Procedure to be Performed Thoracoscopy(Right) Case Comments <None> Finalized By: FAIZAN CHIU Document Signatures Signed By: Yojana Swann [facility] Pref Card Builder 09/25/21 09:36 CHIUFAIZAN 09/26/21 13:16 Unfinalized History Date/Time Username Reason for Unfinalizing Freetext Reason for Unfinalizing 09/26/21 13:14 WATTSDR Correct Billing Electronically signed by Saud [facility] Conversion Horse Wrangler Cerner at 02/20/2023 7:04 AM CDT documented in this encounter Plan of Treatment Not on file documented as of this encounter Visit Diagnoses Not on filedocumented in this encounter
[2025-06-08 10:22] LABS: Hematocrit 39.6 % (37.0-47.0); Hemoglobin 12.5 g/dL (12.2-16.2); Immature Granulocytes % 1.0 %; Mean Corpuscular HGB Conc 31.6 g/dL (31.8-35.4); Mean Corpuscular Hemoglobin 29.1 pg (27.0-31.2); Mean Corpuscular Volume 92.1 fl (81-99); Nucleated Red Blood Cells % 0 %; Platelet Count 388 K/mm3 (142-424); Red Blood Count 4.30 M/mm3 (4.20-5.40); Red Cell Distribution Width-SD 43.1 fL; White Blood Count 10.9 K/mm3 (4.8-10.8)
[2025-06-08 10:43] LABS: Alanine Aminotransferase 21 U/L (12-78); Albumin Level 4.5 g/dl (3.5-5.0); Albumin/Globulin Ratio 1.7 (1.1-1.8); Alkaline Phosphatase 79 U/L (38-126); Anion Gap 11.3 mEq/L (5-15); Aspartate Amino Transferase 32 U/L (14-36); Bilirubin,Total 0.4 mg/dl (0.2-1.3); Blood Urea Nitrogen 9 mg/dl (7-17); Calcium 10.7 mg/dl (8.4-10.2); Carbon Dioxide 27 mmol/L (22.0-30.0); Chloride 104 mmol/L (98-107); Creatinine,Serum 0.70 mg/dl (0.52-1.04); Estimated Glomerular Filt Rate 92 ml/min (>60); GFR (African American) 111 ML/MIN (>60); Globulin 2.6 g/dL (1.3-3.2); Glucose 122 mg/dl (74-100); Potassium 4.3 mmoL/L (3.5-5.1); Sodium 138 mmol/L (136-145); Total Protein,Serum 7.1 g/dl (6.3-8.2)
== END 2025-06-08 23:59 | disposition home or self-care (01) ==
LOC: LAB 08:55
PROVIDERS: PCP Nurse Practitioner; Visit Provider Internal Medicine
DX: Z79.899 Other long term (current) drug therapy (principal)
CPT/HCPCS: 36415; 80053; 85025